=== PATIENT | female | born 1970 | race African-American/Black ===

== ENCOUNTER 2017-06-03 16:20 | Inpatient (IN) | payer SELFPAY ==
[~2017-06-03] VITALS: Ht 177.8 cm; Wt 119.4 kg
[2017-06-03 16:21] VITALS: BP 141/85; PULSE 123; RESP 20; TEMP 99.6; O2SAT 97
[2017-06-03 17:26] LABS: HEMATOCRIT 33.2 % (35.0-46.0); HEMOGLOBIN 10.2 GM/DL (11.6-15.3); MEAN CORPUSCULAR HGB CONC 30.7 % (32.0-36.0); MEAN PLATELET VOLUME 9.1 FL (7.0-11.0); PLATELET COUNT 272 TH/MM3 (150-450); RED BLOOD COUNT 5.11 MIL/MM3 (4.00-5.30); RED CELL DISTRIBUTION WIDTH 18.9 % (11.6-17.2); WHITE BLOOD COUNT 8.9 TH/MM3 (4.0-11.0)
[2017-06-03 17:27] LABS: AUTOMATED NEUTROPHIL # 5.5 TH/MM3 (1.8-7.7); BASOPHIL % 0.4 % (0.0-2.0); EOSINOPHIL % 0.5 % (0.0-4.0); LYMPHOCYTE # 2.5 TH/MM3 (1.0-4.8); MONO % 9.6 % (0.0-8.0); MONOCYTE # 0.9 TH/MM3 (0-0.9); NEUT % 61.5 % (16.0-70.0)
[2017-06-03 17:40] LABS: INTERNATIONAL NORMALIZED RATIO 1.1 RATIO; PROTHROMBIN TIME - PATIENT 11.1 SEC (9.8-11.6)
[2017-06-03 17:41] LABS: BACTERIA, URINE RARE /hpf; BILIRUBIN, URINE NEG (NEG); BLOOD, URINE NEG (NEG); GLUCOSE,URINE 1000 mg/dL (NEG); HYALINE CAST, URINE 6 /lpf (RARE); KETONE, URINE 10 mg/dL (NEG); MUCUS URINE MANY /lpf (OCC); NITRITE,URINE NEG (NEG); PH, URINE 5.5 (5.0-8.5); SQUAMOUS EPITHELIAL CELL URINE 35 /hpf (0-5); URINE COLOR YELLOW (YELLW/STRAW); URINE LEUKOCYTE ESTERASE SMALL (NEG)
[2017-06-03 17:47] LABS: ALBUMIN 3.9 GM/DL (3.4-5.0); AST (GOT) 16 U/L (15-37); BICARBONATE 24.9 MEQ/L (21.0-32.0); BLOOD UREA NITROGEN 6 MG/DL (7-18); CALCIUM 9.2 MG/DL (8.5-10.1); CHLORIDE 100 MEQ/L (98-107); CREATININE 0.91 MG/DL (0.50-1.00); GLOMERULAR FILTRATION RATE 67 ML/MIN (>89); GLUCOSE,RANDOM 241 MG/DL (74-106); SODIUM (NA) 134 MEQ/L (136-145)
[2017-06-03 17:51] LABS: ALKALINE PHOSPHATASE 103 U/L (45-117); ALT (GPT) 23 U/L (10-53); TOTAL BILIRUBIN ADULT 0.8 MG/DL (0.2-1.0); TOTAL PROTEIN 9.4 GM/DL (6.4-8.2)
--- NOTE | 2017-06-03 18:14 | PD ---
HPI Chief Complaint: Numbness/Tingling Time Seen by Provider: 18:13 Travel History International Travel<30 days: No Contact w/Intl Traveler<30days: No Traveled to known affect area: No PFSH Past Medical History Diabetes: Yes ?: Not LMP: end april Allergies-Medications (Allergen,Severity, Reaction): Coded Allergies: No Known Allergies (Unverified , 06/03/17) Reported Meds & Prescriptions Reported Meds & Active Scripts Active Reported Glyburide 5 Mg Tab 5 Mg PO BID Take with meals at the same time each day Levemir Inj (Insulin Detemir) 1,000 unit/ 10 ML Vial 1 Units SQ Do not mix with any other Insulin. Data Data Last Documented VS Vital Signs Date Time Temp Pulse Resp B/P (MAP) Pulse Ox O2 Delivery O2 Flow Rate FiO2 06/03/17 18:54 72 18 98 Room Air 06/03/17 16:21 99.6 141/85 (103) Orders Orders Complete Blood Count With Diff (06/03/17 16:25) Comprehensive Metabolic Panel (06/03/17 16:25) Prothrombin Time / Inr (Pt) (06/03/17 16:25) Act Partial Throm Time (Ptt) (06/03/17 16:25) Urinalysis - C+S If Indicated (06/03/17 16:25) Urine Culture (06/03/17 16:59) Labs Laboratory Tests Test 06/03/17 16:39 06/03/17 16:59 White Blood Count 8.9 TH/MM3 Red Blood Count 5.11 MIL/MM3 Hemoglobin 10.2 GM/DL Hematocrit 33.2 % Mean Corpuscular Volume 65.0 FL Mean Corpuscular Hemoglobin 20.0 PG Mean Corpuscular Hemoglobin Concent 30.7 % Red Cell Distribution Width 18.9 % Platelet Count 272 TH/MM3 Mean Platelet Volume 9.1 FL Neutrophils (%) (Auto) 61.5 % Lymphocytes (%) (Auto) 28.0 % Monocytes (%) (Auto) 9.6 % Eosinophils (%) (Auto) 0.5 % Basophils (%) (Auto) 0.4 % Neutrophils # (Auto) 5.5 TH/MM3 Lymphocytes # (Auto) 2.5 TH/MM3 Monocytes # (Auto) 0.9 TH/MM3 Eosinophils # (Auto) 0.0 TH/MM3 Basophils # (Auto) 0.0 TH/MM3 CBC Comment DIFF FINAL Differential Comment Prothrombin Time 11.1 SEC Prothromb Time International Ratio 1.1 RATIO Activated Partial Thromboplast Time 25.1 SEC Blood Urea Nitrogen 6 MG/DL Creatinine 0.91 MG/DL Random Glucose 241 MG/DL Total Protein 9.4 GM/DL Albumin 3.9 GM/DL Calcium Level 9.2 MG/DL Alkaline Phosphatase 103 U/L Aspartate Amino Transf (AST/SGOT) 16 U/L Alanine Aminotransferase (ALT/SGPT) 23 U/L Total Bilirubin 0.8 MG/DL Sodium Level 134 MEQ/L Potassium Level 3.5 MEQ/L Chloride Level 100 MEQ/L Carbon Dioxide Level 24.9 MEQ/L Anion Gap 9 MEQ/L Estimat Glomerular Filtration Rate 67 ML/MIN Urine Color YELLOW Urine Turbidity CLOUDY Urine pH 5.5 Urine Specific [place] 1.029 Urine Protein 100 mg/dL Urine Glucose (UA) 1000 mg/dL Urine Ketones 10 mg/dL Urine Occult Blood NEG Urine Nitrite NEG Urine Bilirubin NEG Urine Urobilinogen LESS THAN 2.0 MG/DL Urine Leukocyte Esterase SMALL Urine RBC 3 /hpf Urine WBC 11 /hpf Urine Squamous Epithelial Cells 35 /hpf Urine Bacteria RARE /hpf Urine Hyaline Casts 6 /lpf Urine Mucus MANY /lpf Microscopic Urinalysis Comment CULTURE INDICATED Carter Hummel Jun 03, 2017 18:14
[2017-06-03] MEDS ORDERED: LEVEMIR SQ (19:08)
[2017-06-03] MEDS ORDERED: GLYB5TAB3 PO (19:08)
[2017-06-03 20:44] VITALS: BP 174/75; PULSE 100; RESP 20; TEMP 98.9; O2SAT 97
--- NOTE | 2017-06-03 20:51 | RADRPT ---
EXAM DATE/TIME: 06/03/2017 20:20 [facility] COMPARISON: No previous studies available for comparison. INDICATIONS : Right sided weakness. RADIATION DOSE: 50.00 CTDIvol (mGy) MEDICAL HISTORY : Diabetes mellitus type 2. SURGICAL HISTORY : None. ENCOUNTER: Initial ACUITY: 1 day PAIN SCALE: 0/10 LOCATION: cranial TECHNIQUE: Multiple contiguous axial images were obtained of the head. Using automated exposure control and adj ustment of the mA and/or kV according to patient size, radiation dose was kept as low as reasonably a chievable to obtain optimal diagnostic quality images. DICOM format image data is available electro nically for review and comparison. FINDINGS: CEREBRUM: The ventricles are normal for age. No evidence of midline shift, mass lesion, hemorrhage or acute in farction. No extra-axial fluid collections are seen. POSTERIOR FOSSA: The cerebellum and brainstem are intact. The 4th ventricle is midline. The cerebellopontine angle i s unremarkable. EXTRACRANIAL: The visualized portion of the orbits is intact. SKULL: The calvaria is intact. No evidence of skull fracture. CONCLUSION: Negative noncontrast head CT. Camden Rivera MD on June 03, 2017 at 20:49 Board Certified Radiologist. This report was verified electronically.
--- NOTE | 2017-06-03 21:43 | PD ---
HPI Chief Complaint: Numbness/Tingling Time Seen by Provider: 19:18 Travel History International Travel<30 days: No Contact w/Intl Traveler<30days: No Traveled to known affect area: No History of Present Illness HPI Patient is a 47-year-old female who 2 weeks ago had a flulike illness now for 2- 3 days she's been having weakness and tingling in her mid abdomen and lower legs as well as weakness of her right lower leg is progressing she has taken nothing for it. She has not seen a neurologist for. Past medical history is diabetes insulin-dependent as well as she is has chronic vertigo but is not on medications for that. She describes it as a tingling feeling however when I examine her cutaneous touch is equal bilateral LEFT LEG LIFT NORMAL BUT RIGHT SEEMS WEAK 3/5 but against gravity able to slide leg sideways in the bed to sit up. No Trauma no sudden pain . weakness tingling are the main complaints and decreased sensation from bladder reported. No incontinence PFSH Past Medical History Anemia: Yes Diabetes: Yes Patient Takes Glucophage: No Medical other: Yes (vertigo) Tetanus Vaccination: < 5 Years Influenza Vaccination: Yes ?: Not LMP: end of April : 3 Para: 4 Past Surgical History Appendectomy: Yes Section: Yes (3) Social History Alcohol Use: No Tobacco Use: No Substance Use: No Allergies-Medications (Allergen,Severity, Reaction): Coded Allergies: No Known Allergies (Unverified , 06/03/17) Reported Meds & Prescriptions Reported Meds & Active Scripts Active Reported Glyburide 5 Mg Tab 5 Mg PO BID Take with meals at the same time each day Levemir Inj (Insulin Detemir) 1,000 unit/ 10 ML Vial 1 Units SQ Do not mix with any other Insulin. Review of Systems Except as stated in HPI: all other systems reviewed are Neg Neurologic: Positive: Weakness, Paresthesia, Other (decrease sensation of bladder and need to urinate NO incontinence ) Physical Exam Narrative GENERAL: In no apparent distress nontoxic-appearing awake alert SKIN: Warm and dry. HEAD: Atraumatic. Normocephalic. EYES: Pupils equal and round. No scleral icterus. No injection or drainage. ENT: No nasal bleeding or discharge. Mucous membranes pink and moist. NECK: Trachea midline. No JVD. CARDIOVASCULAR: Regular rate and rhythm. RESPIRATORY: No accessory muscle use. Clear to auscultation. Breath sounds equal bilaterally. GASTROINTESTINAL: Abdomen soft, non-tender, nondistended. Hepatic and splenic margins not palpable. MUSCULOSKELETAL: Extremities left lower extremity is weak with minimal lift against gravity . Sensation is intact to tactile stimulation Without clubbing, cyanosis, or edema. No obvious deformities. NEUROLOGICAL: awake alert , sensation intact pinching her skin bilateral legs equal sensation, left leg 5/5 but right lower extremity 2/5 can move sideways in bed to sit up but not against gravity . Data Data Last Documented VS Vital Signs Date Time Temp Pulse Resp B/P (MAP) Pulse Ox O2 Delivery O2 Flow Rate FiO2 06/03/17 20:44 98.9 100 20 174/75 (108) 97 Room Air Orders Orders Complete Blood Count With Diff (06/03/17 16:25) Comprehensive Metabolic Panel (06/03/17 16:25) Prothrombin Time / Inr (Pt) (06/03/17 16:25) Act Partial Throm Time (Ptt) (06/03/17 16:25) Urinalysis - C+S If Indicated (06/03/17 16:25) Urine Culture (06/03/17 16:59) Ct Brain W/O Iv Contrast(Rout) (06/03/17 ) Ed Urine Pregnancytest Poc (06/03/17 19:36) Admit Order (Ed Use Only) (06/03/17 21:40) Vital Signs (Adult) Q4H (06/03/17 21:39) Neuro Checks Q4H (06/03/17 21:39) Activity Oob With Assistance (06/03/17 21:39) [employer] Demonstrator / Telemetry .CONTINUOUS (06/03/17 21:39) Sodium Chloride 0.9% Flush (Ns Flush) (06/03/17 21:45) Sodium Chloride 0.9% Flush (Ns Flush) (06/04/17 09:00) Pt Request For Service (06/03/17 21:39) Case Management Consult (06/03/17 21:39) Naloxone Inj (Narcan Inj) (06/03/17 21:45) Labs Laboratory Tests Test 06/03/17 16:39 06/03/17 16:59 White Blood Count 8.9 TH/MM3 Red Blood Count 5.11 MIL/MM3 Hemoglobin 10.2 GM/DL Hematocrit 33.2 % Mean Corpuscular Volume 65.0 FL Mean Corpuscular Hemoglobin 20.0 PG Mean Corpuscular Hemoglobin Concent 30.7 % Red Cell Distribution Width 18.9 % Platelet Count 272 TH/MM3 Mean Platelet Volume 9.1 FL Neutrophils (%) (Auto) 61.5 % Lymphocytes (%) (Auto) 28.0 % Monocytes (%) (Auto) 9.6 % Eosinophils (%) (Auto) 0.5 % Basophils (%) (Auto) 0.4 % Neutrophils # (Auto) 5.5 TH/MM3 Lymphocytes # (Auto) 2.5 TH/MM3 Monocytes # (Auto) 0.9 TH/MM3 Eosinophils # (Auto) 0.0 TH/MM3 Basophils # (Auto) 0.0 TH/MM3 CBC Comment DIFF FINAL Differential Comment Prothrombin Time 11.1 SEC Prothromb Time International Ratio 1.1 RATIO Activated Partial Thromboplast Time 25.1 SEC Blood Urea Nitrogen 6 MG/DL Creatinine 0.91 MG/DL Random Glucose 241 MG/DL Total Protein 9.4 GM/DL Albumin 3.9 GM/DL Calcium Level 9.2 MG/DL Alkaline Phosphatase 103 U/L Aspartate Amino Transf (AST/SGOT) 16 U/L Alanine Aminotransferase (ALT/SGPT) 23 U/L Total Bilirubin 0.8 MG/DL Sodium Level 134 MEQ/L Potassium Level 3.5 MEQ/L Chloride Level 100 MEQ/L Carbon Dioxide Level 24.9 MEQ/L Anion Gap 9 MEQ/L Estimat Glomerular Filtration Rate 67 ML/MIN Human Chorionic Gonadotropin, Quant LESS THAN 1 MIU/ML Urine Color YELLOW Urine Turbidity CLOUDY Urine pH 5.5 Urine Specific [place] 1.029 Urine Protein 100 mg/dL Urine Glucose (UA) 1000 mg/dL Urine Ketones 10 mg/dL Urine Occult Blood NEG Urine Nitrite NEG Urine Bilirubin NEG Urine Urobilinogen LESS THAN 2.0 MG/DL Urine Leukocyte Esterase SMALL Urine RBC 3 /hpf Urine WBC 11 /hpf Urine Squamous Epithelial Cells 35 /hpf Urine Bacteria RARE /hpf Urine Hyaline Casts 6 /lpf Urine Mucus MANY /lpf Microscopic Urinalysis Comment CULTURE INDICATED MDM Medical Decision Making Medical Screen Exam Complete: Yes Emergency Medical Condition: Yes Differential Diagnosis Patient has sudden onset of progressive weakness over the last few days tingling from her breast down to her midline to her legs and weakness of the left leg as well as the inability to sense or bladder she is reporting no trauma to her spine she has no history of herniated disks she has no history of multiple sclerosis differential diagnosis includes multiple sclerosis new onset versus Guillain-Gonzalez's versus neuritis versus spinal cord lesion versus diabetes peripheral neuropathy and other Narrative Course patient has weakness to right leg on exam that leads to worry for spinal lesion or central cord or MS or Guillane Sasser ... I speak with Dr. Blancas the neurologist who wants to have an MRI of the thoracic the cervical and lumbar spine done with and without contrast . I admit the patient to Dr. Cárdenas hospitalist and neurology Yonny is following the case He arrives bedside . Diagnosis Primary Impression: Progressive focal motor weakness Admitting Information Admitting Physician Requests: Observation Mitchell Clarke MD Jun 03, 2017 21:43
[2017-06-03] MEDS ORDERED: SODIUM CHLORIDE 0.9% FLUSH 10 ML FLUSH IV FLUSH PRN (21:45)
[2017-06-03] MEDS ORDERED: NALOXONE HCL 0.4 MG/ML AMP IV PUSH PRN (21:45)
[2017-06-03 21:56] VITALS: BP 156/66; PULSE 98; RESP 20; TEMP 98.8; O2SAT 98
[2017-06-03] MEDS ORDERED: DEXTROSE 50% IN WATER 50 ML VIAL(D50) IV PUSH PRN (22:00)
[2017-06-03] MEDS ORDERED: GLUCAGON 1 MG/ML VIAL OTHER PRN (22:00)
--- NOTE | 2017-06-03 23:20 | RADRPT ---
EXAM DATE/TIME: 06/03/2017 22:37 [facility] COMPARISON: No previous studies available for comparison. INDICATIONS : Myelopathy. MEDICAL HISTORY : Diabetes. Anemia. SURGICAL HISTORY : section. Appendectomy. ENCOUNTER: Subsequent ACUITY: 1 day PAIN SCORE: 5/10 LOCATION: Mid-back. TECHNIQUE: Multiplanar multisequence MRI of the thoracic spine was performed. FINDINGS: VERTEBRA: Normal vertebral body height. Homogeneous marrow signal. ALIGNMENT: Normal. CORD: There is abnormal increased signal within the central body of the spinal cord from T1 down to approxi mately T9-T10. The appearance suggests a combination of a syrinx as well as myelopathy. T1-T2: Normal. T2-T3: The thecal sac has a normal diameter. No evidence of disc bulge or protrusion. T3-T4: The thecal sac has a normal diameter. No evidence of disc bulge or protrusion. T4-T5: The thecal sac has a normal diameter. No evidence of disc bulge or protrusion. T5-T6: The thecal sac has a normal diameter. No evidence of disc bulge or protrusion. T6-T7: The thecal sac has a normal diameter. No evidence of disc bulge or protrusion. T7-T8: The thecal sac has a normal diameter. No evidence of disc bulge or protrusion. T8-T9: The thecal sac has a normal diameter. No evidence of disc bulge or protrusion. T9-T10: The thecal sac has a normal diameter. No evidence of disc bulge or protrusion. T10-T11: The thecal sac has a normal diameter. No evidence of disc bulge or protrusion. T11-T12: The thecal sac has a normal diameter. No evidence of disc bulge or protrusion. T12-L1: The thecal sac has a normal diameter. No evidence of disc bulge or protrusion. CONCLUSION: 1. There is abnormal increased signal within the central body of the spinal cord from T1 down to appr oximately T9-T10. This abnormal increased signal appears to be a combination of a syrinx and myelopat hy involving the spinal cord. Juma Dunn MD on June 03, 2017 at 23:12 Board Certified Radiologist. This report was verified electronically.
--- NOTE | 2017-06-03 23:27 | RADRPT ---
EXAM DATE/TIME: 06/03/2017 22:37 [facility] COMPARISON: No previous studies available for comparison. INDICATIONS : Myelopathy. MEDICAL HISTORY : Diabetes. Anemia. SURGICAL HISTORY : section. Appendectomy. ENCOUNTER: Subsequent ACUITY: 1 day PAIN SCORE: 5/10 LOCATION: neck TECHNIQUE: Multiplanar, multisequence MRI examination of the cervical spine was performed. FINDINGS: VERTEBRAE: Normal vertebral body height. Homogeneous marrow signal. ALIGNMENT: No evidence of subluxation. CORD: There is abnormal diffuse increased signal throughout the central body of the cord starting at the le andrés of the C2-C3 extending down into the thoracic spinal cord. The Cord appears to be widened from C4 -C6. No definite syrinx is seen in the spinal cord of the cervical spine. POST FOSSA: The cerebellar tonsils are normal in position. C2-C3: The thecal sac has a normal configuration. There is no evidence of disc herniation or spinal canal s tenosis. The neural foramina are patent bilaterally. C3-C4: The thecal sac has a normal configuration. There is no evidence of disc herniation or spinal canal s tenosis. The neural foramina are patent bilaterally. C4-C5: Mild broad-based bulging. The neural foramina are patent bilaterally. C5-C6: Focal small central bulging/protrusion. The neural foramina are patent bilaterally. C6-C7: Broad-based bulging. The neural foramina are patent bilaterally. C7-T1: The thecal sac has a normal configuration. There is no evidence of disc herniation or spinal canal s tenosis. The neural foramina are patent bilaterally. CONCLUSION: 1. Grossly abnormal increased signal throughout the central body of the spinal cord from C2-C3 down i nto the thoracic spinal cord. There is some widening of the cord from C4-C6. 2. Mild broad-based bulging C4-C5 3. Focal small central bulge/protrusion C5-6 4. Broad-based bulging C6-C7. Juma Dunn MD on June 03, 2017 at 23:18 Board Certified Radiologist. This report was verified electronically.
--- NOTE | 2017-06-03 23:32 | RADRPT ---
EXAM DATE/TIME: 06/03/2017 22:37 [facility] COMPARISON: No previous studies available for comparison. INDICATIONS : Myelopathy. MEDICAL HISTORY : Diabetes. Anemia. SURGICAL HISTORY : section. Appendectomy. ENCOUNTER: Subsequent ACUITY: 1 day PAIN SCORE: 5/10 LOCATION: Lower back. TECHNIQUE: Multiplanar multisequence MRI of the lumbar spine was performed without contrast. FINDINGS: The most caudal appearing lumbar vertebra is numbered as L5. VERTEBRAE: Homogeneous signal. Normal alignment. There is some disc dehydration at L4-5 and L5-S1. There is a s acral cyst at S2 measuring approximately 2.2 x 1.8 cm. The cyst is located centrally and slightly to the left. [place]: Normal level and configuration. T12-L1: The thecal sac has a normal diameter. No evidence of disc bulge or protrusion. The neural foramina are patent bilaterally. L1-L2: The thecal sac has a normal diameter. No evidence of disc bulge or protrusion. The neural foramina are patent bilaterally. L2-L3: The thecal sac has a normal diameter. No evidence of disc bulge or protrusion. The neural foramina are patent bilaterally. L3-L4: The thecal sac has a normal diameter. No evidence of disc bulge or protrusion. The neural foramina are patent bilaterally. L4-L5: Mild diffuse broad-based bulging. The neuroforamina are patent bilaterally. There is bilateral facet arthritis. L5-S1: There is some broad-based bulging and focal central bulging/protrusion. There is narrowing of the rig ht neural foramina. The left neural foramina appears patent. Bilateral facet arthritis. There is a sa cral cyst at S2. CONCLUSION: 1. Mild broad-based bulging at L4-5. 2. Broad-based bulging and focal central bulging/protrusion L5-S1. 3. Sacral cyst at S2 measuring 2.2 x 1.8 cm. 4. Bilateral facet arthritis at L4-5 and L5-S1. Juma Dunn MD on June 03, 2017 at 23:25 Board Certified Radiologist. This report was verified electronically.
[2017-06-04] VITALS (12 sets, daily range): BP systolic 131–168; BP diastolic 64–94; PULSE 94–122; RESP 16–20; TEMP 96.7–99.7; O2SAT 93–99
[2017-06-04] MEDS ORDERED: DEXAMETHASONE SOD PHOS 20 MG/5 ML VIAL IV PUSH ONE (01:15)
--- NOTE | 2017-06-04 01:33 | HHI.HP ---
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 numbness through my body pain in my upper back and pain in my head pain in bilateral thighs muscle spasms cannot walk well and had to stop working starting wednesday can walk through the house to bathroom but had to hold on to [place] - off balance starting afternoon, could no longer walk even to bathroom all symptoms above started Wednesday night when she woke up, she noticed thighs were numbness and then went up to under the breast area pt presented to [facility] on Wednesday and was prescribed hydrocodone/ acetaminophen with muscle relaxants had fever, nausea, vomiting, diarrhea, viral infection- all this happened a week before [place] reports of freq urination but denies any other symptoms Review of Systems Except as stated in HPI: all other systems reviewed are Neg Past Family Social History Past Medical History dm Past Surgical History appendectomy 3 c sections cyst removal around buttocks Allergies: Coded Allergies: No Known Allergies (Unverified , 06/03/17) Family History mother- dm, htn, asthma father- dm, gout sisters- asthma, htn one sister- thyroid Social History no smoking / no etoh. no drugs works as [employer] Physical Exam Vital Signs Vital Signs Date Time Temp Pulse Resp B/P (MAP) Pulse Ox O2 Delivery O2 Flow Rate FiO2 06/04/17 00:17 99.7 118 20 168/79 (108) 93 06/03/17 23:43 06/03/17 21:56 98.8 98 20 156/66 (96) 98 Room Air 06/03/17 20:44 98.9 100 20 174/75 (108) 97 Room Air 06/03/17 18:54 72 18 98 Room Air 06/03/17 16:21 99.6 123 20 141/85 (103) 97 Room Air Physical Exam GENERAL: This is a well-nourished, well-developed patient, in no apparent distress. SKIN: No rashes, ecchymoses or lesions. Cool and dry. HEAD: Atraumatic. Normocephalic. No temporal or scalp tenderness. EYES: no scleral icterus. No injection or drainage. ENT: Nose without bleeding, purulent drainage or septal hematoma. Airway patent. NECK: Trachea midline. No JVD . Supple, nontender, no meningeal signs. CARDIOVASCULAR: Regular rate and rhythm without murmurs, gallops, or rubs. RESPIRATORY: Clear to auscultation. Breath sounds equal bilaterally. No wheezes , rales, or rhonchi. GASTROINTESTINAL: Abdomen soft, non-tender, nondistended. No guarding. MUSCULOSKELETAL: Extremities without clubbing, cyanosis, or edema. . No calf tenderness. NEUROLOGICAL: Awake and alert. Normal speech. Decreased light touch sensation in lower extremities up to thighs. Preserved pain stimuli. Right lower extremity about 1 out of 5. Left lower extremity 2-3 out of 5. Somewhat limited exam. Laboratory Laboratory Tests Test 06/03/17 16:39 06/03/17 16:59 White Blood Count 8.9 Red Blood Count 5.11 Hemoglobin 10.2 Hematocrit 33.2 Mean Corpuscular Volume 65.0 Mean Corpuscular Hemoglobin 20.0 Mean Corpuscular Hemoglobin Concent 30.7 Red Cell Distribution Width 18.9 Platelet Count 272 Mean Platelet Volume 9.1 Neutrophils (%) (Auto) 61.5 Lymphocytes (%) (Auto) 28.0 Monocytes (%) (Auto) 9.6 Eosinophils (%) (Auto) 0.5 Basophils (%) (Auto) 0.4 Neutrophils # (Auto) 5.5 Lymphocytes # (Auto) 2.5 Monocytes # (Auto) 0.9 Eosinophils # (Auto) 0.0 Basophils # (Auto) 0.0 CBC Comment DIFF FINAL Differential Comment Prothrombin Time 11.1 Prothromb Time International Ratio 1.1 Activated Partial Thromboplast Time 25.1 Blood Urea Nitrogen 6 Creatinine 0.91 Random Glucose 241 Total Protein 9.4 Albumin 3.9 Calcium Level 9.2 Alkaline Phosphatase 103 Aspartate Amino Transf (AST/SGOT) 16 Alanine Aminotransferase (ALT/SGPT) 23 Total Bilirubin 0.8 Sodium Level 134 Potassium Level 3.5 Chloride Level 100 Carbon Dioxide Level 24.9 Anion Gap 9 Estimat Glomerular Filtration Rate 67 Urine Color YELLOW Urine Turbidity CLOUDY Urine pH 5.5 Urine Specific [place] 1.029 Urine Protein 100 Urine Glucose (UA) 1000 Urine Ketones 10 Urine Occult Blood NEG Urine Nitrite NEG Urine Bilirubin NEG Urine Urobilinogen LESS THAN 2.0 Urine Leukocyte Esterase SMALL Urine RBC 3 Urine WBC 11 Urine Squamous Epithelial Cells 35 Urine Bacteria RARE Urine Hyaline Casts 6 Urine Mucus MANY Microscopic Urinalysis Comment CULTURE INDICATED Date/Time Source Procedure Growth Status 06/03/17 16:59 Urine Clean Catch Urine Culture Pending Received Result Diagram: 06/03/17 1639 06/03/17 1639 Imaging Last 48 hours Impressions Thoracic Spine MRI 06/03/17 0000 Signed Impressions: Service Date/Time: May 22:37 - CONCLUSION: 1. There is abnormal increased signal within the central body of the spinal cord from T1 down to approximately T9-T10. This abnormal increased signal appears to be a combination of a syrinx and myelopathy involving the spinal cord. Juma Dunn MD Lumbar Spine MRI 06/03/17 0000 Signed Impressions: Service Date/Time: May 22:37 - CONCLUSION: 1. Mild broad-based bulging at L4-5. 2. Broad-based bulging and focal central bulging/protrusion L5-S1. 3. Sacral cyst at S2 measuring 2.2 x 1.8 cm. 4. Bilateral facet arthritis at L4-5 and L5-S1. Juma Dunn MD Head CT 06/03/17 0000 Signed Impressions: Service Date/Time: May 20:20 - CONCLUSION: Negative noncontrast head CT. Camden Rivera MD Cervical Spine MRI 06/03/17 0000 Signed Impressions: Service Date/Time: May 22:37 - CONCLUSION: 1. Grossly abnormal increased signal throughout the central body of the spinal cord from C2-C3 down into the thoracic spinal cord. There is some widening of the cord from C4-C6. 2. Mild broad-based bulging C4-C5 3. Focal small central bulge/protrusion C5-6 4. Broad-based bulging C6-C7. Juma Dunn MD [place] VTE Risk Assessment Caprini VTE Risk Assessment: Mod/High Risk (score >= 2) Caprini Risk Assessment Model Point Value = 1 Point Value = 2 Point Value = 3 Point Value = 5 Age 41-60 Minor surgery BMI > 25 kg/m2 Swollen legs Varicose veins or History of unexplained or recurrent spontaneous Oral contraceptives or hormone replacement Sepsis (< 1 month) Serious lung disease, including pneumonia (< 1 month) Abnormal pulmonary function Acute myocardial infarction Congestive heart failure (< 1 month) History of inflammatory bowel disease Medical patient at bed rest Age 61-74 Arthroscopic surgery Major open surgery (> 45 min) Laparoscopic surgery (> 45 min) Malignancy Confined to bed (> 72 hours) Immobilizing plaster cast Central venous access Age >= 75 History of VTE Family history of VTE Factor V Leiden Prothrombin [id number] Lupus anticoagulant Anticardiolipin antibodies Elevated serum homocysteine Heparin-induced thrombocytopenia Other congenital or acquired thrombophilia Stroke (< 1 month) Elective arthroplasty Hip, pelvis, or leg fracture Acute spinal cord injury (< 1 month) Prophylaxis Regimen Total Risk Factor Score Risk Level Prophylaxis Regimen 0-1 Low Early ambulation 2 Moderate Order ONE of the following: *Sequential Compression Device (SCD) *Heparin 5000 units SQ BID 3-4 Higher Order ONE of the following medications: *Heparin 5000 units SQ TID *Enoxaparin/Lovenox 40 mg SQ daily (WT < 150 kg, CrCl > 30 mL/min) *Enoxaparin/Lovenox 30 mg SQ daily (WT < 150 kg, CrCl > 10-29 mL/min) *Enoxaparin/Lovenox 30 mg SQ BID (WT < 150 kg, CrCl > 30 mL/min) AND/OR *Sequential Compression Device (SCD) 5 or more Highest Order ONE of the following medications: *Heparin 5000 units SQ TID (Preferred with Epidurals) *Enoxaparin/Lovenox 40 mg SQ daily (WT < 150 kg, CrCl > 30 mL/min) *Enoxaparin/Lovenox 30 mg SQ daily (WT < 150 kg, CrCl > 10-29 mL/min) *Enoxaparin/Lovenox 30 mg SQ BID (WT < 150 kg, CrCl > 30 mL/min) AND *Sequential Compression Device (SCD) Assessment and Plan Assessment and Plan impression: Acute neuro deficits with ascending symptoms. 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 Abnormal MRI findings: Cervical spine MRI grossly abnormal increased signal throughout the central body of the spinal cord from C2-C3 down into the thoracic spinal cord. There is some widening of the cord from C4-C6. Thoracic spine MRI. Increased signal within the central body of the spinal cord from T1 down to T9-2-10. Signal appears to be combination of syrinx and myelopathy. History of diabetes Plan: Patient's case was discussed with neurologist roll contour grinder your physician. Neuro checks every 4 hours. Pain control. MRI studies discussed with neurologist. Initially started patient on Decadron 10 mg IV 1 dose. However after evaluation by neurologist at the bedside, advised to add Solu- Medrol 1 g IV 1 dose. We'll monitor fingersticks closely. Currently sliding scale coverage every 4 hours. Nothing by mouth. Lumbar puncture in a.m. Also discussed with neurosurgeon Dr Fierro over the phone. He reviewed the films including the cervical and thoracic spine MRIs. His impression is that this could be spinal cord tumor. He requested for MRI of C-spine and L-spine with contrast tonight. He believes that we may have to transfer patient to [facility] depending on the findings of the contrast studies. MRIs ordered stat for tonight. DVT prophylaxis with SCD. GI prophylaxis on pantoprazole. Discussed Condition With patient, ER MD, nursing staff, neurologist, neurosurgeon Physician Certification 2 Midnight Certification Type: Admission for Inpatient Services Order for Inpatient Services The services are ordered in accordance with Medicare regulations or non- Medicare payer requirements, as applicable. In the case of services not specified as inpatient-only, they are appropriately provided as inpatient services in accordance with the 2-midnight benchmark. Estimated LOS (days): 4 days is the estimated time the patient will need to remain in the hospital, assuming treatment plan goals are met and no additional complications. Post-Hospital Plan: Home Odell Cárdenas MD Jun 04, 2017 01:33
[2017-06-04] MEDS ORDERED: methylPREDNISolone SOD SUCC 125 MG/2 ML VIAL IV PUSH ONE (02:00)
[2017-06-04] MEDS ORDERED: GLUCAGON 1 MG/ML VIAL OTHER PRN (02:00)
[2017-06-04] MEDS ORDERED: DEXTROSE 50% IN WATER 50 ML VIAL(D50) IV PUSH PRN (02:00)
[2017-06-04] MEDS: INSULIN ASPART SUPPLEMENTAL SCALE SQ SCH ×6 (02:12→21:47)
[2017-06-04] MEDS: cefTRIAXone INJ 1,000 MG in SODIUM CHLORIDE 0.9% INJ 100 ML IV SCH (02:12)
[2017-06-04] MEDS: MORPHINE SULFATE 2 MG/ML INJ IV PUSH PRN ×2 (03:20→12:57)
[2017-06-04] MEDS: SODIUM CHLOR 0.9% IV SCH ×2 (03:24→04:57)
[2017-06-04] MEDS: METHYLPREDNISOLONE SO SUCC IV SCH ×2 (03:24→04:57)
[2017-06-04] MEDS ORDERED: GADODIAMIDE PF 287 MG/ML 5 ML VIAL (for RAD MRI) IVCONTRAST ONE (04:21)
--- NOTE | 2017-06-04 05:06 | RADRPT ---
EXAM DATE/TIME: 06/04/2017 03:38 [facility] COMPARISON: MRI CERVICAL SPINE W/O CONTRAST, June 03, 2017, 22:37. INDICATIONS : Numbness from the chest down. CONTRAST: 25 cc Omniscan (gadodiamide) IV MEDICAL HISTORY : Diabetes mellitus type 2. SURGICAL HISTORY : Appendectomy. section. ENCOUNTER: Subsequent ACUITY: 4-6 days PAIN SCORE: 0/10 LOCATION: neck TECHNIQUE: Multiplanar, multisequence MRI examination of the cervical spine was performed. FINDINGS: A followup MRI of the cervical spine with contrast has been performed. This is compared to patient's recent MRI of the cervical spine without contrast. As noted on the prior examination there is abnorma l increased signal throughout most of the cervical spinal cord from the level of C2-3 extending into the thoracic spine. There is widening of the spinal cord at about the level of C4-C6 suggestive of ed tatyana and swelling within the spinal cord. There is no definite post contrast-enhancement within the cristy dy of the cervical spinal cord. There is good alignment of the cervical spine and normal signal withi n the vertebral bodies. There is no abnormal enhancement within the vertebral bodies.. CONCLUSION: 1. No abnormal enhancement is seen within the body of the cervical spinal cord on these postcontrast images. 2. There is abnormal signal within the body of the cervical spinal cord with widening of the spinal c ord at the level of C4-C6 suggestive of edema and swelling. Juma Dunn MD on June 04, 2017 at 4:57 Board Certified Radiologist. This report was verified electronically.
--- NOTE | 2017-06-04 05:12 | RADRPT ---
EXAM DATE/TIME: 06/04/2017 03:38 [place] Corrected on: June 04, 2017; [facility] COMPARISON: MRI CERVICAL SPINE W CONTRAST, June 04, 2017, 3:38. MRI THORACIC SPINE W/O CONTRAST, June 03, 2017, 22:37. INDICATIONS : Numbness from the chest down. CONTRAST: 25 cc Omniscan (gadodiamide) IV MEDICAL HISTORY : Diabetes mellitus type 2. SURGICAL HISTORY : Appendectomy. section. ENCOUNTER: Subsequent ACUITY: 4-6 days PAIN SCORE: 0/10 LOCATION: back TECHNIQUE: Multiplanar multisequence MRI of the thoracic spine was performed. FINDINGS: Patient returned for postcontrast images of the thoracic spinal cord. As noted on the prior exam ther e is abnormal increased signal within the central body of the spinal cord from T1 down to approximate ly T10. On the postcontrast images, there appears to be diffuse nonspecific enhancement within the co rd from proximally T1 down to T7-T8. There may be a tiny syrinx within the central portion of the cor d at T5-T6 seen on the axial images.. CONCLUSION: The postcontrast images demonstrate diffuse abnormal enhancement within the body the cord from approx imately T1 down to approximately T8. This suggest some type of inflammatory process involving the tho racic spinal cord. This may be acute transverse myelitis. Juma Dunn MD on June 04, 2017 at 5:03 Board Certified Radiologist. This report was verified electronically. Juma Dunn MD on June 04, 2017 at 6:06 Board Certified Radiologist. This report was verified electronically.
--- NOTE | 2017-06-04 05:15 | RADRPT ---
EXAM DATE/TIME: 06/04/2017 03:38 [facility] COMPARISON: No previous studies available for comparison. INDICATIONS : Numbness from chest down. CONTRAST: 25 cc Omniscan (gadodiamide) IV MEDICAL HISTORY : Diabetes mellitus type 2. SURGICAL HISTORY : Appendectomy. section. ENCOUNTER: Subsequent ACUITY: 4-6 days PAIN SCORE: 0/10 LOCATION: cranial TECHNIQUE: Multiplanar, multisequence MRI of the brain was performed both prior to and following the administrat ion of paramagnetic contrast. FINDINGS: CEREBRUM: The ventricles are normal for age. No evidence of midline shift, mass lesion, hemorrhage or acute in farction. No extraaxial fluid collections are seen. The pituitary gland and suprasellar cistern are normal in configuration. WHITE MATTER: No significant signal abnormalities are seen in the white matter. POSTERIOR FOSSA: The cerebellum and brainstem are intact. The 4th ventricle is midline. The cerebellopontine angle is unremarkable. The cerebellar tonsils are normal in position. DIFFUSION IMAGING: No focal areas of restricted diffusion are seen. No evidence of acute infarction. EXTRACRANIAL: The visualized portions of the orbits are unremarkable. Small mucus retention cyst in the right maxil veronique sinus. POST-CONTRAST: No abnormal areas of parenchymal or dural enhancement. No evidence of blood-brain barrier breakdown. No enhancing mass occupying lesions. CONCLUSION: Unremarkable MRI of the brain. Juma Dunn MD on June 04, 2017 at 5:10 Board Certified Radiologist. This report was verified electronically.
--- NOTE | 2017-06-04 07:07 | HHI.PR ---
Subjective Remarks no new co Objective Vital Signs Date Time Temp Pulse Resp B/P (MAP) Pulse Ox O2 Delivery O2 Flow Rate FiO2 06/04/17 05:09 98.8 105 19 147/73 (97) 97 06/04/17 00:30 98 Nasal Cannula 2.00 06/04/17 00:17 99.7 118 20 168/79 (108) 93 06/03/17 23:43 06/03/17 21:56 98.8 98 20 156/66 (96) 98 Room Air 06/03/17 20:44 98.9 100 20 174/75 (108) 97 Room Air 06/03/17 18:54 72 18 98 Room Air 06/03/17 16:21 99.6 123 20 141/85 (103) 97 Room Air I/O 06/03/17 06/03/17 06/03/17 06/04/17 06/04/17 06/04/17 07:00 15:00 23:00 07:00 15:00 23:00 Output Total 300 ml Balance -300 ml Output Urine Total 300 ml # Voids 1 4 Result Diagram: 06/03/17 1639 06/03/17 1639 Objective Remarks can lift lle off bed well generally 4/5 there the rle weaker ta 4+ ip 3 bue nl Assessment and Plan Assessment and Plan imp myelopathy await nusu input myelitis avelina the cervical area does not enhance but the thoracic does diffusely enhance LP a lot of labs not done yet brain mri neg steroids oob PT stable overnoc Abraham Blancas MD Jun 04, 2017 07:07
[2017-06-04 07:45] LABS: ALT (GPT) 22 U/L (10-53); AST (GOT) 10 U/L (15-37); CHOLESTEROL 163 MG/DL (120-200); TRIGLYCERIDES 50 MG/DL (42-150)
[2017-06-04] MEDS ORDERED: INSULIN ASPART SUPPLEMENTAL SCALE SQ SCH (08:00)
[2017-06-04 08:06] LABS: RHEUMATOID FACTOR SCREEN NEGATIVE (NEGATIVE)
[2017-06-04 08:11] LABS: CHOLESTEROL/ HDL RATIO 3.01 RATIO; FREE T4 1.39 NG/DL (0.76-1.46); HDL CHOLESTEROL 54.1 MG/DL (40.0-60.0); LDL CHOLESTEROL 99 MG/DL (0-99)
[2017-06-04 08:14] LABS: FOLATE GREATER THAN 20.0 NG/ML (3.1-17.5)
[2017-06-04] MEDS: PANTOPRAZOLE SODIUM 40 MG VIAL IV PUSH SCH ×2 (08:17→20:42)
[2017-06-04] MEDS: SODIUM CHLORIDE 0.9% FLUSH 10 ML FLUSH IV FLUSH SCH ×2 (08:17→20:43)
--- NOTE | 2017-06-04 08:53 | MB ---
cc: HALEY DING M.D. DATE OF CONSULTATION 06/04/2017 REASON FOR CONSULTATION This is a 47-year-old right-handed woman with a history of insulin diabetes, remote vertigo, some anemia, otherwise who has been very healthy. Before , she had some nausea, vomiting and diarrhea, but had been feeling fine until last Wednesday when she woke up in the middle of the night, felt some tingling from the waist down and then the next day she felt tingling down into her feet and then later that day up into her breast region and seemed to be fairly stable on Wednesday and came in on with some cramping in her legs. She was still able to walk this morning. No rash. She never had Lyme disease. She never traveled to the located within [facility]. REVIEW OF SYSTEMS Denies any hypertension, hypercholesterolemia, [place], stent angioplasty, A. fib, Coumadin, renal, hepatic or pulmonary disease, thyroid disease, lupus, ulcer cancer, seizure, or stroke. SOCIAL HISTORY Not a smoker or a drinker. No drugs. Lives by herself. FAMILY HISTORY Family history, just moved up from [facility]. Family history is negative for cancer, seizure, or stroke. MEDICATIONS She takes: 1. Glyburide 2. Insulin ALLERGIES NO KNOWN DRUG ALLERGIES. PHYSICAL EXAM On exam, 99 to afebrile, 118, 20, 168/79. NECK: There were no carotid bruits. HEART: Regular rhythm. I did not detect a murmur. GENERAL: She is obese. NEUROLOGIC: The pupils are equal, visual rivera are full. Extraocular movements intact without nystagmus. Face symmetric with normal sensation. Tongue was midline. There no drift. She had normal strength in the bilateral deltoid, triceps, biceps finger extensors, FDI, APB. Lower extremity strength iliopsoas on the right 3-/5, on the left 3/5, hamstring on the right 4/5, on the left 4/5. Quadriceps on the right 4-/5 on the left, 5-/5. Tibialis anterior on the left 5/5, on the right about 4/5. DTRs are absent throughout. Toes are upgoing bilaterally. There is no ankle clonus. She had some increased tone spontaneously in the right lower greater than the left lower extremity. Pinprick shows that she has a pin level right around T3-T4 on her back bilaterally. A little bit more actually on the left than the right. Proprioception could not tell with her toes. She is not ataxic on [id number]. Speech is fluent. She is not aphasic. LABORATORY DATA CBC is essentially normal. UA showed 1000 glucose, 11 white cells, small amount of leukoesterase. Basic metabolic profile was normal, glucose 241. LFTs were normal. She had a CT scan of her brain that was normal. She had an MRI of her cervical spine which showed abnormal broad area in the spinal cord from about C2-3 down, some widening of the cord done without contrast. MRI of the lumbar spine showed some DJD and a sacral cyst. MRI of the thoracic spine showed what appeared to be some movement artifact with some abnormal signal in the cord all the way down. 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 Whether this post infectious diffuse myelitis is unclear. She will need an LP. We will give her a gram of Solu-Medrol now. We are calling neurosurgery [facility] to have them look at the films to weigh in. I will be following her with you in the hospital. We will also do an MR of the brain to just make sure there is nothing going on in the rest of the central nervous system. MD SANJAY Torres/BAHMAN /1:52 AM /8:26 AM
--- NOTE | 2017-06-04 10:12 | RADRPT ---
EXAM DATE/TIME: 06/04/2017 10:33 [facility] COMPARISON: No previous studies available for comparison. INDICATIONS : Patient presents with peripheral weakness in need of lumbar puncture to rule out myelitis. MEDICAL HISTORY : DM SURGICAL HISTORY : Appy 3 C-sections Cyst removed from buttocks ENCOUNTER: Initial ACUITY: 3 days PAIN SCORE: 8/10 LOCATION: Head and neck pain. LUMBAR PUNCTURE TIME: 09:32 hours FLUORO TIME: 0.9 minutes IMAGE SERIES: 0 ACCESS LEVEL: L3-4 OPENING PRESSURE: 20 cm of water CLOSING PRESSURE: Not requested. FLUID: 12 cc of clear CSF was collected and sent to the laboratory for analysis. PROCEDURE : 1. Fluoroscopic guided lumbar puncture. 2. Recording of opening pressure. The risks, benefits and alternatives to the procedure were explained and verbal and written consent w as obtained. The site was prepped in sterile fashion. Full sterile technique was used, including ca p, mask, sterile gloves and gown and a large sterile sheet. Hand hygiene and 2% chlorhexidine and/or betadine/alcohol prep was utilized per protocol for cutaneous antisepsis. The skin and subcutaneous tissues were infiltrated with local anesthetic solution. With fluoroscopic guidance the lumbar thecal sac was punctured at the above level described above and the opening pressure was recorded. The above described fluid was removed without difficulty. The patient tolerated the procedure well and there were no complications. CONCLUSION: Uncomplicated fluoroscopically guided lumbar puncture with pressures as above. Camden Camp MD on June 04, 2017 at 10:09 Board Certified Radiologist. This report was verified electronically.
--- NOTE | 2017-06-04 10:42 | PD.RAD ---
Post Procedure Progress Note Pre Procedure Diagnosis: (1) Progressive focal motor weakness Post Procedure Diagnosis: (1) Progressive focal motor weakness Procedure Date: Jun 04, 2017 Supervising Radiologist: Camden Camp Proceduralist/Assist: RT Clement(R), RT Sera(R) Anesthesia: Local Plan of Activity Patient to Unit: ROPU Patient Condition: Good See PACS Report for procedural detail/treatment Spinal Procedure Lumbar Puncture L3-L4 Fluid Removal (CCs): 12 Fluid Description: Clear Puncture Time: 09:32 Findings: opening pressure 20 cm Camden Camp MD Jun 04, 2017 10:42
--- NOTE | 2017-06-04 10:52 | HHI.PR ---
Subjective Remarks Follow up for myelopathy, lower extremity numbness/weakness. The patient is seen post lumbar puncture. She reports continued lower extremity numbness and weakness, unchanged compared to yesterday. She reports pain at her lower neck, and muscles spasms in bilateral thighs. She also reports urinary incontinence over the past 2 days. She states she feels the urge to urinate but then has no control. She has no other medical complaints at this time. Objective Vitals Vital Signs Date Time Temp Pulse Resp B/P (MAP) Pulse Ox O2 Delivery O2 Flow Rate FiO2 06/04/17 08:16 Nasal Cannula 2.00 06/04/17 08:00 98.2 97 18 131/68 (89) 97 06/04/17 05:32 101 06/04/17 05:09 98.8 105 19 147/73 (97) 97 06/04/17 00:31 115 06/04/17 00:30 98 Nasal Cannula 2.00 06/04/17 00:17 99.7 118 20 168/79 (108) 93 06/03/17 23:43 06/03/17 21:56 98.8 98 20 156/66 (96) 98 Room Air 06/03/17 20:44 98.9 100 20 174/75 (108) 97 Room Air 06/03/17 18:54 72 18 98 Room Air 06/03/17 16:21 99.6 123 20 141/85 (103) 97 Room Air I/O 06/03/17 06/03/17 06/03/17 06/04/17 06/04/17 06/04/17 07:00 15:00 23:00 07:00 15:00 23:00 Output Total 300 ml Balance -300 ml Output Urine Total 300 ml # Voids 1 4 Result Diagram: 06/03/17 1639 06/03/17 1639 Imaging Last Impressions Brain MRI 06/04/17 0227 Signed Impressions: Service Date/Time: Sunday, June 04, 2017 03:38 - CONCLUSION: Unremarkable MRI of the brain. Juma Dunn MD Thoracic Spine MRI 06/04/17 0000 Signed Impressions: Service Date/Time: Sunday, June 04, 2017 03:38 - CONCLUSION: The postcontrast images demonstrate diffuse abnormal enhancement within the body the cord from approximately T1 down to approximately T8. This suggest some type of inflammatory process involving the thoracic spinal cord. This may be acute transverse myelitis. Juma Dunn MD Lumbar Puncture Fluoroscopy 06/04/17 0000 Signed Impressions: Service Date/Time: Sunday, June 04, 2017 10:33 - CONCLUSION: Uncomplicated fluoroscopically guided lumbar puncture with pressures as above. Camden Camp MD Cervical Spine MRI 06/04/17 0000 Signed Impressions: Service Date/Time: Sunday, June 04, 2017 03:38 - CONCLUSION: 1. No abnormal enhancement is seen within the body of the cervical spinal cord on these postcontrast images. 2. There is abnormal signal within the body of the cervical spinal cord with widening of the spinal cord at the level of C4-C6 suggestive of edema and swelling. Juma Dunn MD Lumbar Spine MRI 06/03/17 0000 Signed Impressions: Service Date/Time: May 22:37 - CONCLUSION: 1. Mild broad-based bulging at L4-5. 2. Broad-based bulging and focal central bulging/protrusion L5-S1. 3. Sacral cyst at S2 measuring 2.2 x 1.8 cm. 4. Bilateral facet arthritis at L4-5 and L5-S1. Juma Dunn MD Head CT 06/03/17 0000 Signed Impressions: Service Date/Time: May 20:20 - CONCLUSION: Negative noncontrast head CT. Camden Rivera MD Objective Remarks GENERAL: Well-nourished, well-developed obese middle aged female patient in [facility]. SKIN: Warm and dry. No rash. HEENT: Normocephalic. Atraumatic.Pupils equal and round. Mucous membranes pink and moist. NECK: Supple. Trachea midline. CARDIOVASCULAR: Regular rate and rhythm. S1, S2 noted. No murmur appreciated. RESPIRATORY: No accessory muscle use. Clear to auscultation. Breath sounds equal bilaterally. GASTROINTESTINAL: Abdomen soft, non-tender, nondistended. Normoactive bowel sounds x4. MUSCULOSKELETAL: No obvious deformities. Extremities without clubbing, cyanosis , or edema. NEUROLOGICAL: Awake and alert. No obvious cranial nerve deficits. 3/5 strength of bilateral lower extremities. 5/5 strength strength of bilateral upper extremities. Normal speech. PSYCHIATRIC: Appropriate mood and affect; insight and judgment normal. Medications and IVs Current Medications Medications (Trade) Dose Ordered Sig/Tara Route Start Time Stop Time Status Last Admin (NS Flush) 2 ml UNSCH PRN IV FLUSH 06/03/17 21:45 (NS Flush) 2 ml BID IV FLUSH 06/04/17 09:00 06/04/17 08:17 (Narcan Inj) 0.4 mg UNSCH PRN IV PUSH 06/03/17 21:45 (Morphine Inj) 2 mg Q3H PRN IV PUSH 06/04/17 00:30 06/04/17 03:20 Ceftriaxone Sodium 1000 mg/ Sodium Chloride 100 ml @ 200 mls/hr Q24H IV 06/04/17 02:00 06/04/17 02:12 (D50w (Vial) Inj) 50 ml UNSCH PRN IV PUSH 06/04/17 02:00 (Glucagon Inj) 1 mg UNSCH PRN OTHER 06/04/17 02:00 (NovoLOG SUPPLEMENTAL SCALE) 1 Q4H SQ 06/04/17 02:00 06/04/17 06:23 (Flexeril) 5 mg Q8H PRN PO 06/04/17 02:15 (Protonix Inj) 40 mg Q12H IV PUSH 06/04/17 09:00 06/04/17 08:17 Methylprednisolone Sodium Succinate 1000 mg/Dextrose 266 ml @ 266 mls/hr Q24H IV 06/05/17 05:00 06/06/17 05:59 A/P Assessment and Plan 47-year-old female with history of diabetes presents with numbness, back/thigh pain, diffuse spasms, weakness, inability to ambulate. Myelopathy: Acute neuro deficits with ascending symptoms. Possible post infectious myelitis. -C-spine MRI grossly abnormal increased signal throughout the central body of the spinal cord from C2-C3 down into the thoracic spinal cord. Some widening of the cord from C4-C6. -T-spine MRI shows increased signal within the central body of the spinal cord from T1 down to T9-2-10. Signal appears to be combination of syrinx and myelopathy. -Repeat C-spine MRI with contrast showed abnormal increased signal throughout most of the cervical spinal cord from the level of C2-3 extending into the thoracic spine; widening of the spinal cord at about the level of C4- C6 suggestive of edema and swelling within the spinal cord. -Repeat T-spine MRI with contrast showed diffuse abnormal enhancement within the body of the cord from T1-T8; suggest some type of inflammatory process involving thoracic spinal cord; may be acute transverse myelitis -Brain MRI unremarkable -Monitor neuro checks -Pain control with morphine prn and flexeril prn -S/p Lumbar puncture today 06/04, all labs pending -Consult neurology and neurosurgery, appreciate recommendations -Started on IV Solumedrol 1G q24h x3days History of diabetes -Monitor Accu-checks and cover with SSI DVT prophylaxis: teds/SCDs. Avoid chemoprophylaxis with LP. GI prophylaxis: pantoprazole. Attending Statement patient was seen and examined today. presented with lower extremity weakness and numbness- possible myelitis. s/p LP. on IV steroids. neurology and neurosurgery following. rest of assessment and plan as noted above. Sarah Mckenzie PA-C Jun 04, 2017 10:52 Ailyn Caceres MD Jun 04, 2017 13:21
[2017-06-04 10:53] LABS: TOTAL PROTEIN,CSF 101.2 MG/DL (15.0-45.0)
--- NOTE | 2017-06-04 11:03 | MB ---
cc: SHAKA MONTE M.D. DATE OF CONSULTATION 06/04/[address] Blancas HISTORY I was asked to see this 47-year-old woman who presented with a history of fairly rapid onset of sensory and motor dysfunction in the trunk and lower extremities over the past several days. According to the patient, she was in her usual state of health until Wednesday morning when she woke up feeling some numbness and tingling in her lower extremities. Those symptoms have worsened over the past several days and over the past two days she has developed weakness in the lower extremities as well, right greater than left. She presented to the emergency room for evaluation and MRIs with and without contrast of the cervical, thoracic, and lumbar spine had been performed. I have reviewed the studies. The studies show edematous change and enlargement of the cervical spinal cord without evidence of enhancement. Similar findings noted in the thoracic cord down to the T9 level. The enhancement in the thoracic chordee do show some spotting enhancement centrally within the cord. There is some motion artifact and some suggestion of a small amount of syrinx formation, but this is not absolutely clear. Lumbar MRI showed degenerative disk disease and benign sacral arachnoid cyst. MRI of the brain showed no abnormalities. PAST MEDICAL HISTORY The patient's past medical history significant for insulin-dependent diabetes. MEDICATIONS Her medications are: 1. Glyburide. 2. Insulin. ALLERGIES None known. HABITS The patient is not a smoker. She does not drink and denies illicit drug use. REVIEW OF SYSTEMS Pertinent as stated in HPI, otherwise 10-point review of systems negative. EXAMINATION A well-developed, well-nourished female. She is awake and alert in no acute distress. HEENT: Head is atraumatic and normocephalic. Pupils are equal, reactive to light. Extraocular movements are intact. NECK: Neck is supple. Full range of motion without meningismus. NEUROLOGIC EXAMINATION: The patient is alert and oriented x3 with normal mental status. Speech is intact to content and comprehension. Cranial nerves II-XII are intact. Motor function in the upper extremities is 5/5 without drift. Lower extremity examination shows 3/5 iliopsoas strength on the right, 3+/5 on the left. Quadriceps are 4/5 on the right, 5-/5 on the left. Tibialis anterior is 3/5 on the right, 5/5 on the left. Plantar responses are 5/5 bilaterally. Sensory examination shows a hard sensory level at approximately T4 which extends down to the knees at which point the patient does have some sensation distally of pressure on the right and pain and pressure on the left. Reflexes are hypoactive throughout. Plantar responses are upgoing bilaterally. ASSESSMENT MRI findings of enlargement of the cervical spinal cord and possibly enhancing lesion in the thoracic cord. The time frame of the patient's symptomatology is more consistent with acute myelitis, however, the enlargement of the cervical cord is worrisome for tumor. 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 Dr. Blancas has ordered an LP on the patient, the results are pending. She has also been started on Solu-Medrol. For now, no other recommendations at this time. We will await the results of the lumbar puncture before recommending further interventions. MD SANDI Hartmann/BAHMAN /10:26 AM /10:42 AM
[2017-06-04 11:33] LABS: RBC TUBE #1 40 /MM3; SUPERNATE COLOR TUBE #1 CLEAR (CLEAR); VOLUME TUBE # 1 1.3 ML; WBC TUBE #1 138 /MM3 (0-10)
[2017-06-04 11:34] LABS: CSF LYMPHOCYTES 56 %; CSF MONOCYTES 13 %; CSF NEUTROPHILS 31 %
[2017-06-04] MEDS: CYCLOBENZAPRINE HCL 10 MG TAB PO PRN ×2 (15:01→23:43)
[2017-06-04 15:43] LABS: ANA SCREEN NEG (NEG)
[2017-06-05] VITALS (7 sets, daily range): BP systolic 139–156; BP diastolic 70–91; PULSE 83–94; RESP 16–18; TEMP 96.9–97.6; O2SAT 95–99
[2017-06-05] MEDS: INSULIN ASPART SUPPLEMENTAL SCALE SQ SCH ×6 (01:52→20:36)
[2017-06-05] MEDS: cefTRIAXone INJ 1,000 MG in SODIUM CHLORIDE 0.9% INJ 100 ML IV SCH (01:52)
[2017-06-05] MEDS ORDERED: methylPREDNISolone SO SUCC INJ 1,000 MG in DEXTROSE 5% IN WATER INJ 250 ML IV SCH ×2 (05:00)
[2017-06-05] MEDS: MORPHINE SULFATE 2 MG/ML INJ IV PUSH PRN ×2 (07:11→13:30)
[2017-06-05] MEDS: SODIUM CHLORIDE 0.9% FLUSH 10 ML FLUSH IV FLUSH SCH ×2 (08:19→20:36)
[2017-06-05] MEDS: PANTOPRAZOLE SODIUM 40 MG VIAL IV PUSH SCH ×2 (08:20→20:36)
[2017-06-05] MEDS: CYCLOBENZAPRINE HCL 10 MG TAB PO PRN ×2 (08:20→18:24)
--- NOTE | 2017-06-05 11:01 | HHI.NSPN ---
History Interval History Mrs. Friedman is resting comfortably but is having increased spasm in the right lower extremity. Continues to complain of numbness throughout the trunk and lower extremities. Lumbar puncture results show increased protein in slight increase in glucose. Further study still pending. Exam Results Vital Signs Date Time Temp Pulse Resp B/P (MAP) Pulse Ox O2 Delivery O2 Flow Rate FiO2 06/05/17 08:54 99 Nasal Cannula 2.00 06/05/17 08:00 97.4 83 17 146/91 (109) Intake and Output 06/05/17 06/05/17 06/06/17 08:00 16:00 00:00 Intake Total 340 ml Balance 340 ml Physical Examination Neurological examination shows intact motor and sensory function in the upper extremities. T4 sensory level remains. Patient is now having significant spasm in the right lower extremity and has lost dorsi and plantarflexion of the right foot. Left lower extremity examination is stable. Lab, Micro, Other Results Last 48 hours Impressions Brain MRI 06/04/17 0227 Signed Impressions: Service Date/Time: Sunday, June 04, 2017 03:38 - CONCLUSION: Unremarkable MRI of the brain. Juma Dunn MD Thoracic Spine MRI 06/04/17 0000 Signed Impressions: Service Date/Time: Sunday, June 04, 2017 03:38 - CONCLUSION: The postcontrast images demonstrate diffuse abnormal enhancement within the body the cord from approximately T1 down to approximately T8. This suggest some type of inflammatory process involving the thoracic spinal cord. This may be acute transverse myelitis. Juma Dunn MD Lumbar Puncture Fluoroscopy 06/04/17 0000 Signed Impressions: Service Date/Time: Sunday, June 04, 2017 10:33 - CONCLUSION: Uncomplicated fluoroscopically guided lumbar puncture with pressures as above. Camden Camp MD Cervical Spine MRI 06/04/17 0000 Signed Impressions: Service Date/Time: Sunday, June 04, 2017 03:38 - CONCLUSION: 1. No abnormal enhancement is seen within the body of the cervical spinal cord on these postcontrast images. 2. There is abnormal signal within the body of the cervical spinal cord with widening of the spinal cord at the level of C4-C6 suggestive of edema and swelling. Juma Dunn MD Date/Time Source Procedure Growth Status 06/04/17 09:36 Cerebral Spinal Fluid Lumbar Puncture Fungal Smear - Final NO FUNGAL ELEMENTS SEEN. Resulted 06/04/17 09:36 Cerebral Spinal Fluid Lumbar Puncture Fungal Culture Pending Resulted 06/03/17 16:59 Urine Clean Catch Urine Culture - Final 50-100,000 CFU/ML MIXED GRAM POSITIVE... Complete Medical Decision Making Impression and Plan Impression: Continuing worsening of the patient's myelopathy. I suspect that we are dealing with a spinal cord tumor rather than transverse myelitis as the enlargement of the cervical cord does not correlate with her examination. Plan: We will begin steps at having patient transferred to [facility] for probable spinal cord biopsy and further surgical recommendations. Chad Fierro MD Jun 05, 2017 11:00
--- NOTE | 2017-06-05 11:11 | HHI.PR ---
Review/Management Diagnosis Myelopathy Likely cervical, possibly due to a tumor Less likely a myelitis Plan Neuro checks Q4h Pending LP results May consider biopsy of the spinal lesion NSG recommend transfer to [facility], for further intervention Diagnosis/Plan: Subjective Subjective Comments Patient complains of numbness in both legs and muscle spasms denies increasing weakness LP revealed mild elevation of protein and glucose, other results are pending Active Medications Current Medications Medications (Trade) Dose Ordered Sig/Tara Route Start Time Stop Time Status Last Admin (NS Flush) 2 ml UNSCH PRN IV FLUSH 06/03/17 21:45 06/04/17 12:57 (NS Flush) 2 ml BID IV FLUSH 06/04/17 09:00 06/05/17 08:19 (Narcan Inj) 0.4 mg UNSCH PRN IV PUSH 06/03/17 21:45 (Morphine Inj) 2 mg Q3H PRN IV PUSH 06/04/17 00:30 06/05/17 07:11 Ceftriaxone Sodium 1000 mg/ Sodium Chloride 100 ml @ 200 mls/hr Q24H IV 06/04/17 02:00 06/05/17 01:52 (D50w (Vial) Inj) 50 ml UNSCH PRN IV PUSH 06/04/17 02:00 (Glucagon Inj) 1 mg UNSCH PRN OTHER 06/04/17 02:00 (NovoLOG SUPPLEMENTAL SCALE) 1 Q4H SQ 06/04/17 02:00 06/05/17 09:45 (Flexeril) 5 mg Q8H PRN PO 06/04/17 02:15 06/05/17 08:20 (Protonix Inj) 40 mg Q12H IV PUSH 06/04/17 09:00 06/05/17 08:20 Methylprednisolone Sodium Succinate 1000 mg/Dextrose 266 ml @ 266 mls/hr Q24H IV 06/05/17 05:00 06/06/17 05:59 06/05/17 05:32 (Lioresal) 10 mg Q8HR PO 06/05/17 14:00 UNV Allergies Allergies Coded Allergies No Known Allergies (Unverified06/03/17) Review of Systems All other ROS: ROS reviewed as documented in chart Exam I&O / VS Vital Signs Date Time Temp Pulse Resp B/P (MAP) Pulse Ox O2 Delivery O2 Flow Rate FiO2 06/05/17 08:54 99 Nasal Cannula 2.00 06/05/17 08:24 Nasal Cannula 2.00 06/05/17 08:00 97.4 83 17 146/91 (109) 98 06/05/17 04:00 97.1 86 17 156/85 (108) 95 06/05/17 04:00 87 06/05/17 00:24 89 06/05/17 00:00 96.9 92 16 152/86 (108) 96 06/04/17 20:52 105 06/04/17 20:42 95 Nasal Cannula 2.00 06/04/17 20:00 96.7 101 17 153/87 (109) 97 06/04/17 18:17 Nasal Cannula 2.00 06/04/17 18:10 96.9 96 18 151/94 (113) 96 06/04/17 17:00 96.9 99 16 151/94 (113) 99 06/04/17 16:54 97.3 122 18 141/64 (89) 94 06/04/17 12:30 97 Nasal Cannula 2.00 06/04/17 12:00 97.4 109 18 165/79 (107) 94 06/04/17 12:00 111 General: Alert and Oriented, Mild distress Eye: Normal conjuctiva, Vision unchanged Respiratory: Lungs CTA, Non-labored respirations Cardiology: Normal rate Neurologic: Alert, Oriented Psychiatric: Cooperative, Appropriate mood & affect Exam Comments Normal motor exam is b/l UE LE, IPS on the right 3-/5, on the left 3/5, hamstring on the right 4/5, on the left 4/5. Quadriceps on the right 4-/5 on the left, 5-/5. TA on the left 5/5, on the right about 4/5. DTRs are 2+, b/l UE, LE. Plantars are upgoing bilaterally. No ankle clonus. Sensory level at T4. Normal finger nose test b/l. Objective Radiology Results Last 72 hours Impressions Brain MRI 06/04/17 0227 Signed Impressions: Service Date/Time: Sunday, June 04, 2017 03:38 - CONCLUSION: Unremarkable MRI of the brain. Juma Dunn MD Thoracic Spine MRI 06/04/17 0000 Signed Impressions: Service Date/Time: Sunday, June 04, 2017 03:38 - CONCLUSION: The postcontrast images demonstrate diffuse abnormal enhancement within the body the cord from approximately T1 down to approximately T8. This suggest some type of inflammatory process involving the thoracic spinal cord. This may be acute transverse myelitis. Juma Dunn MD Lumbar Puncture Fluoroscopy 06/04/17 0000 Signed Impressions: Service Date/Time: Sunday, June 04, 2017 10:33 - CONCLUSION: Uncomplicated fluoroscopically guided lumbar puncture with pressures as above. Camden Camp MD Cervical Spine MRI 06/04/17 0000 Signed Impressions: Service Date/Time: Sunday, June 04, 2017 03:38 - CONCLUSION: 1. No abnormal enhancement is seen within the body of the cervical spinal cord on these postcontrast images. 2. There is abnormal signal within the body of the cervical spinal cord with widening of the spinal cord at the level of C4-C6 suggestive of edema and swelling. Juma Dunn MD Thoracic Spine MRI 06/03/17 0000 Signed Impressions: Service Date/Time: May 22:37 - CONCLUSION: 1. There is abnormal increased signal within the central body of the spinal cord from T1 down to approximately T9-T10. This abnormal increased signal appears to be a combination of a syrinx and myelopathy involving the spinal cord. Juma Dunn MD Lumbar Spine MRI 06/03/17 0000 Signed Impressions: Service Date/Time: May 22:37 - CONCLUSION: 1. Mild broad-based bulging at L4-5. 2. Broad-based bulging and focal central bulging/protrusion L5-S1. 3. Sacral cyst at S2 measuring 2.2 x 1.8 cm. 4. Bilateral facet arthritis at L4-5 and L5-S1. Juma Dunn MD Head CT 06/03/17 0000 Signed Impressions: Service Date/Time: May 20:20 - CONCLUSION: Negative noncontrast head CT. Camden Rivera MD Cervical Spine MRI 06/03/17 0000 Signed Impressions: Service Date/Time: May 22:37 - CONCLUSION: 1. Grossly abnormal increased signal throughout the central body of the spinal cord from C2-C3 down into the thoracic spinal cord. There is some widening of the cord from C4-C6. 2. Mild broad-based bulging C4-C5 3. Focal small central bulge/protrusion C5-6 4. Broad-based bulging C6-C7. Juma Dunn MD Micro and Labs Date/Time Source Procedure Growth Status 06/04/17 09:36 Cerebral Spinal Fluid Lumbar Puncture Fungal Smear - Final NO FUNGAL ELEMENTS SEEN. Resulted 06/04/17 09:36 Cerebral Spinal Fluid Lumbar Puncture Fungal Culture Pending Resulted 06/03/17 16:59 Urine Clean Catch Urine Culture - Final 50-100,000 CFU/ML MIXED GRAM POSITIVE... Complete Angie De Los Santos MD Jun 05, 2017 11:11
[2017-06-05] MEDS: BACLOFEN 10 MG TAB PO SCH ×2 (13:29→20:36)
[2017-06-05] MEDS ORDERED: INSULIN DETEMIR 100 UNITS/ML VIAL SQ ONE (13:30)
--- NOTE | 2017-06-05 13:43 | ECHRPT ---
Indication: cva/tia CONCLUSIONS BP: / HR: Rhythm: MEASUREMENTS (Male / Female) Normal Values Technical Quality:Fair 2D ECHO LV Diastolic Diameter PLAX 3.1 cm 4.2 - 5.9 / 3.9 - 5.3 cm LV Systolic Diameter PLAX 2.1 cm IVS Diastolic Thickness 2.2 cm 0.6 - 1.0 / 0.6 - 0.9 cm LVPW Diastolic Thickness 1.1 cm 0.6 - 1.0 / 0.6 - 0.9 cm LV Relative Wall Thickness 1.1 RV Internal Dim ED PLAX 2.4 cm M-MODE Aortic Root Diameter MM 3.3 cm LA Systolic Diameter MM 3.2 cm LA Ao Ratio MM 1.0 AV Cusp Separation MM 2.3 cm DOPPLER Mitral E Point Velocity 62.7 cm/s Mitral A Point Velocity 113.0 cm/s Mitral E to A Ratio 0.6 TR Peak Velocity 236.0 cm/s TR Peak Gradient 22.3 mmHg Right Atrial Pressure 10.0 mmHg Pulmonary Artery Systolic Pressu 32.3 mmHg Right Ventricular Systolic Press 32.3 mmHg FINDINGS LEFT VENTRICLE Mild concentric left ventricular hypertrophy. Normal left ventricular size. The left ventricular systolic function is hyperdynamic with an estimated ejection fraction in the ra nge of 65- 70%. RIGHT VENTRICLE Normal right ventricular size and systolic function. LEFT ATRIUM The left atrial size is normal. RIGHT ATRIUM The right atrial size is normal. ATRIAL SEPTUM Normal atrial septal thickness without atrial level shunting by limited color doppler interrogation. AORTA The aortic root and proximal ascending aorta are normal in size on limited imaging. MITRAL VALVE Structurally normal mitral valve. Mild mitral valve regurgitation. AORTIC VALVE Trileaflet aortic valve. No aortic valve regurgitation. No aortic valve stenosis. TRICUSPID VALVE Structurally normal tricuspid valve. There is mild tricuspid valve regurgitation. The estimated pulmonary arterial pressure is 32.3 mmHg. PULMONARY VALVE No pulmonary valve regurgitation or stenosis. VESSELS The inferior vena cava is normal in size. PERICARDIUM No pericardial effusion. Himanshu Ledesma MD (Electronically Signed) Final Date:05 June 2017 13:42
[2017-06-05 14:59] LABS: HSV 1,PCR Negative (Negative)
[2017-06-05] MEDS ORDERED: MAGNESIUM HYDROXIDE SUSP 30 ML CUP PO PRN (18:15)
--- NOTE | 2017-06-05 18:21 | HHI.PR ---
Subjective Remarks No improvement in neuro deficits. Sensation loss and weakness start below the diaphragm. No pain is reported. No fevers or chills. Objective Vital Signs Date Time Temp Pulse Resp B/P (MAP) Pulse Ox O2 Delivery O2 Flow Rate FiO2 06/05/17 16:00 97.4 85 18 139/83 (101) 99 06/05/17 12:00 97.6 94 18 141/70 (93) 99 06/05/17 08:54 99 Nasal Cannula 2.00 06/05/17 08:24 Nasal Cannula 2.00 06/05/17 08:00 97.4 83 17 146/91 (109) 98 06/05/17 04:00 97.1 86 17 156/85 (108) 95 06/05/17 04:00 87 06/05/17 00:24 89 06/05/17 00:00 96.9 92 16 152/86 (108) 96 06/04/17 20:52 105 06/04/17 20:42 95 Nasal Cannula 2.00 06/04/17 20:00 96.7 101 17 153/87 (109) 97 06/04/17 18:17 Nasal Cannula 2.00 I/O 06/04/17 06/04/17 06/04/17 06/05/17 06/05/17 06/05/17 07:00 15:00 23:00 07:00 15:00 23:00 Intake Total 240 ml 960 ml 340 ml Balance 240 ml 960 ml 340 ml Intake Oral 240 ml 960 ml 240 ml IV Total 100 ml # Voids 4 6 3 3 4 Result Diagram: 06/03/17 1639 06/03/17 1639 Objective Remarks GENERAL: NAD, A&Ox3 HEAD: Normocephalic. NECK: Supple, trachea midline. No lymphadenopathy. EYES: No scleral icterus. No injection or drainage. CARDIOVASCULAR: Regular rate and rhythm without murmurs, gallops, or rubs. RESPIRATORY: Breath sounds equal bilaterally. No accessory muscle use. GASTROINTESTINAL: Abdomen soft, non-tender, nondistended. MUSCULOSKELETAL: No cyanosis, or edema. SKIN: Warm and dry. NEURO: No numbness and weakness below the diaphragm most prominently in both legs. I could not elicit reflexes on exam. A/P Problem List: (1) Progressive focal motor weakness ICD Code: R53.1 - Weakness Status: Acute Assessment and Plan 47-year-old female admitted secondary to progressive weakness and numbness below the diaphragm with incontinence. Myelopathy Acute motor weakness Spinal cord edema acute neuro deficits Possible acute myelitis Possible spinal neoplasm Possible autoimmune phenomenon Continue antibiotics Continue antivirals Continue steroids Continue to monitor neuro exam Watch closely to ensure no progression above the diaphragm Transferred to [facility] has been recommended for spinal biopsy to evaluate for neoplasm Brain MRI is unremarkable Spinal imaging shows diffuse changes including edema and a widening process at the T-spine area Follow lumbar puncture results Neurology following Neurosurgery following Diabetes mellitus type 2 Steroids are causing disruption of blood sugars Currently uncontrolled Gradually insulins upward for control Follow blood sugars Insulin sliding scale Diabetic diet DVT prophylaxis SCDs Chemoprophylaxis avoided for now secondary to recent lumbar puncture Joe Milan MD Jun 05, 2017 18:21
[2017-06-05] MEDS ORDERED: DOCUSATE SODIUM 100 MG CAP PO SCH (21:00)
[2017-06-06] MEDS ORDERED: INSULIN DETEMIR 100 UNITS/ML VIAL SQ SCH (21:00)
[2017-06-07 03:52] LABS: HAEMOPHILUS FLU AG TYPE B Not Detected (Not Detected)
[2017-06-07 10:14] LABS: CSF CRYPTOCOCCUS AG CONF ND (NOT DETECTD)
[2017-06-08 08:29] LABS: METHYLMALONIC ACID 0.08 nmol/mL (<=0.40)
[2017-06-08 17:53] LABS: CSF CRYPTOCOCCUS ANTIGEN NOT DETECTED (NEGATIVE)
== END 2017-06-05 21:05 | disposition short-term general hospital (02) | DRG 97 ==
LOC: NEPC 16:20 → NEDA 21:41 → NEPGCP 23:45 → OBSVTOIN 06-04 00:29 → N06A 06-04 18:00
PROVIDERS: ADMIT Hospitalist; ATTEND Hospitalist
PROC: 009U3ZX Drainage of Spinal Canal, Percutaneous Approach, Diagnostic (ICD-10-PCS; principal; 2017-06-04)
DX: G04.91 Myelitis, unspecified (principal); G95.19 Other vascular myelopathies; G95.9 Disease of spinal cord, unspecified; E11.9 Type 2 diabetes mellitus without complications; R53.1 Weakness; R32 Unspecified urinary incontinence; M79.651 Pain in right thigh; M79.652 Pain in left thigh; R20.0 Anesthesia of skin; M51.36 Other intervertebral disc degeneration, lumbar region; Z79.4 Long term (current) use of insulin
CPT/HCPCS: 62270; 70450; 70553; 72141; 72142; 72146; 72147; 72148; 77003; 80053; 80061; 81001; 82040; 82042; 82550; 82607; 82746; 82784; 82945; 82948; 83873; 83916; 83921; 84157; 84165; 84207; 84425; 84439; 84443; 84450; 84460; 84702; 84703; 85025; 85610; 85652; 85730; 86038; 86140; 86335; 86403; 86430; 86592; 86618; 86790; 87015; 87070; 87086; 87102; 87116; 87205; 87206; 87529; 88108; 89051; 93306; 94150; A9579; C9113; G0378; G8987-GP; G8988-GP; J0696; J1100; J1815; J2270; J2930; J7050; J7060

== ENCOUNTER 2017-10-02 17:21 | Emergency (ER) | payer OTHER ==
[~2017-10-02] VITALS: Ht 177.8 cm; Wt 110.0 kg
[~2017-10-02 17:21] MED LIST: GLYB5TAB3 PO; LEVEMIR SQ
[2017-10-02 17:40] VITALS: BP 158/77; PULSE 74; RESP 18; TEMP 98.2; O2SAT 100
[2017-10-02] MEDS ORDERED: ONDANSETRON ODT 4 MG TAB PO ONE (17:45)
[2017-10-02] MEDS ORDERED: MORPHINE SULFATE 4 MG/ML INJ IV PUSH ONE (17:45)
[2017-10-02] MEDS ORDERED: SODIUM CHLORIDE 0.9% FLUSH 10 ML FLUSH IVF PRN (17:45)
[2017-10-02 18:15] LABS: AUTOMATED NEUTROPHIL # 4.5 TH/MM3 (1.8-7.7); BASOPHIL % 0.4 % (0.0-2.0); EOSINOPHIL # 0.3 TH/MM3 (0-0.4); EOSINOPHIL % 3.3 % (0.0-4.0); HEMATOCRIT 42.2 % (35.0-46.0); LYMPH % 31.3 % (9.0-44.0); LYMPHOCYTE # 2.5 TH/MM3 (1.0-4.8); MEAN CELL VOLUME 85.2 FL (80.0-100.0); MEAN CORPUSCULAR HEMOGLOBIN 28.2 PG (27.0-34.0); MEAN CORPUSCULAR HGB CONC 33.1 % (32.0-36.0); MEAN PLATELET VOLUME 9.6 FL (7.0-11.0); MONOCYTE # 0.7 TH/MM3 (0-0.9); PLATELET COUNT 174 TH/MM3 (150-450); RED BLOOD COUNT 4.95 MIL/MM3 (4.00-5.30); RED CELL DISTRIBUTION WIDTH 16.1 % (11.6-17.2)
[2017-10-02 18:17] VITALS: BP 120/60; PULSE 78; RESP 18; O2SAT 97
[2017-10-02 18:20] VITALS: O2SAT 97
[2017-10-02 18:38] LABS: TROPONIN I LESS THAN 0.02 NG/ML (0.02-0.05)
--- NOTE | 2017-10-02 18:38 | RADRPT ---
EXAM DATE/TIME: 10/02/2017 18:12 [place] COMPARISON: No previous studies available for comparison. INDICATIONS : Shortness of breath and chest pain. MEDICAL HISTORY : Hypertension. SURGICAL HISTORY : Appendectomy. ENCOUNTER: Initial ACUITY: 1 day PAIN SCORE: 3/10 LOCATION: chest FINDINGS: A single view of the chest demonstrates the lungs to be symmetrically aerated without evidence of mas s, infiltrate or effusion. The cardiomediastinal contours are unremarkable. Osseous structures are intact. CONCLUSION: No acute pulmonary infiltrates. Juma Dunn MD on October 02, 2017 at 18:35 Board Certified Radiologist. This report was verified electronically.
[2017-10-02 18:42] LABS: BICARBONATE 24.8 MEQ/L (21.0-32.0); BLOOD UREA NITROGEN 8 MG/DL (7-18); CALCIUM 9.1 MG/DL (8.5-10.1); CHLORIDE 102 MEQ/L (98-107); CREATININE 0.51 MG/DL (0.50-1.00); GLOMERULAR FILTRATION RATE 158 ML/MIN (>89); GLUCOSE,RANDOM 229 MG/DL (74-106); MAGNESIUM 1.9 MG/DL (1.5-2.5); SODIUM (NA) 136 MEQ/L (136-145)
--- NOTE | 2017-10-02 18:55 | PD ---
HPI . Chest pain Chief Complaint: Chest Pain Time Seen by Provider: 17:41 Travel History International Travel<30 days: No Contact w/Intl Traveler<30days: No Traveled to known affect area: No History of Present Illness HPI This patient presents with the acute onset of chest pain. It started about noon time. She states that it initially got better but then got worse again about 5:30 PM. She describes it as a tightness. She initially rated at 8/10. Her pain has been relieved with morphine. It is now down to a 2. Patient reports a positive previous similar history. She states that she was just admitted to [facility] and was there for a couple of weeks with similar complaints. She states that her chest pain and shortness of breath were attributed to a myelopathy. PFSH Past Medical History Anemia: Yes Arthritis: Yes (arthritis in left knee) Asthma: No Autoimmune Disease: No Anxiety: No Depression: No Heart Rhythm Problems: No Cancer: No Cardiovascular Problems: No High Cholesterol: No Chemotherapy: No Chest Pain: No Congestive Heart Failure: No COPD: No Cerebrovascular Accident: No Diabetes: Yes Patient Takes Glucophage: No Endocrine: Yes Gastrointestinal Disorders: Yes (acid reflux) GERD: Yes Genitourinary: Yes (uti currently) Hiatal Hernia: No Heparin Induced Thrombocytopen: No Hypertension: No Immune Disorder: No Implanted Vascular Access Dvce: No Kidney Stones: No Musculoskeletal: Yes Neurologic: Yes (current admisson) Psychiatric: No Reproductive: No Respiratory: No Migraines: Yes (occasionally) Radiation Therapy: No Renal Failure: No Seizures: No Sickle Cell Disease: No Sleep Apnea: No Thyroid Disease: No Ulcer: No ?: Not LMP: 09/19/17 : 3 Para: 4 Past Surgical History Abdominal Surgery: Yes (3 x c-s) AICD: No Appendectomy: Yes Arteriovenous Shunt: No Cardiac Surgery: No Section: Yes (3) Ear Surgery: No Endocrine Surgery: No Eye Surgery: No Genitourinary Surgery: Yes (appendectomy) Gynecologic Surgery: Yes (3 x c-s) Insulin Pump: No Joint Replacement: No Neurologic Surgery: No Oral Surgery: No Pacemaker: No Thoracic Surgery: No Other Surgery: Yes (3 x c-s/ 2015 appendectomy/ 1989cyst of sacral removed) Social History Alcohol Use: No Tobacco Use: No Substance Use: No Allergies-Medications (Allergen,Severity, Reaction): Coded Allergies: No Known Allergies (Unverified , 06/03/17) Reported Meds & Prescriptions Reported Meds & Active Scripts Active Reported Glyburide 5 Mg Tab 5 Mg PO BID Take with meals at the same time each day Levemir Inj (Insulin Detemir) 1,000 unit/ 10 ML Vial 1 Units SQ Do not mix with any other Insulin. Review of Systems Except as stated in HPI: all other systems reviewed are Neg Cardiovascular: Positive: Chest Pain or Discomfort Respiratory: Positive: Shortness of Breath Neurologic: Positive: Other (Paraplegia. She reports a history of a myelopathy. This was diagnosed at [facility]. This is a new problem for her. It started in about May of this year. She was initially seen here and was subsequently transferred to [facility] for further evaluation and treatment.) Physical Exam Narrative GENERAL: Awake and alert and in no acute distress. SKIN: warm/dry. HEAD: Normocephalic. Atraumatic. EYES: Pupils equal and round. No scleral icterus. No injection or drainage. ENT: No nasal bleeding or discharge. Mucous membranes pink and moist. NECK: Trachea midline. Full range of motion without pain.. CARDIOVASCULAR: Regular rate and rhythm. Heart sounds are normal. RESPIRATORY: No accessory muscle use. Clear to auscultation. Breath sounds equal bilaterally. GASTROINTESTINAL: Abdomen soft. : She has an indwelling Pierson catheter. MUSCULOSKELETAL: No obvious deformities. NEUROLOGICAL: Awake and alert. No obvious cranial nerve deficits. Paraplegia. PSYCHIATRIC: Appropriate mood and affect; insight and judgment normal. Data Data Last Documented VS Vital Signs Date Time Temp Pulse Resp B/P (MAP) Pulse Ox O2 Delivery O2 Flow Rate FiO2 10/02/17 18:20 97 Nasal Cannula 2.00 10/02/17 18:17 78 18 10/02/17 17:40 98.2 Orders Orders Basic Metabolic Panel (Bmp) (10/02/17 17:45) Complete Blood Count With Diff (10/02/17 17:45) Magnesium (Mg) (10/02/17 17:45) Troponin I (10/02/17 17:45) Chest, Single Ap (10/02/17 17:45) Ecg Monitoring (10/02/17 17:45) Iv Access Insert/Monitor (10/02/17 17:45) Oximetry (10/02/17 17:45) Morphine Inj (Morphine Inj) (10/02/17 17:45) Sodium Chloride 0.9% Flush (Ns Flush) (10/02/17 17:45) Ondansetron Odt (Zofran Odt) (10/02/17 17:45) Radiology Film Requests (10/02/17 ) Labs Laboratory Tests Test 10/02/17 17:55 White Blood Count 8.0 TH/MM3 Red Blood Count 4.95 MIL/MM3 Hemoglobin 14.0 GM/DL Hematocrit 42.2 % Mean Corpuscular Volume 85.2 FL Mean Corpuscular Hemoglobin 28.2 PG Mean Corpuscular Hemoglobin Concent 33.1 % Red Cell Distribution Width 16.1 % Platelet Count 174 TH/MM3 Mean Platelet Volume 9.6 FL Neutrophils (%) (Auto) 56.0 % Lymphocytes (%) (Auto) 31.3 % Monocytes (%) (Auto) 9.0 % Eosinophils (%) (Auto) 3.3 % Basophils (%) (Auto) 0.4 % Neutrophils # (Auto) 4.5 TH/MM3 Lymphocytes # (Auto) 2.5 TH/MM3 Monocytes # (Auto) 0.7 TH/MM3 Eosinophils # (Auto) 0.3 TH/MM3 Basophils # (Auto) 0.0 TH/MM3 CBC Comment DIFF FINAL Differential Comment Blood Urea Nitrogen 8 MG/DL Creatinine 0.51 MG/DL Random Glucose 229 MG/DL Calcium Level 9.1 MG/DL Magnesium Level 1.9 MG/DL Sodium Level 136 MEQ/L Potassium Level 4.0 MEQ/L Chloride Level 102 MEQ/L Carbon Dioxide Level 24.8 MEQ/L Anion Gap 9 MEQ/L Estimat Glomerular Filtration Rate 158 ML/MIN Troponin I LESS THAN 0.02 NG/ML MDM Medical Decision Making Medical Screen Exam Complete: Yes Emergency Medical Condition: Yes Medical Record Reviewed: Yes (Patient was admitted here in mid May for progressive motor weakness. She was subsequently transferred to [facility].) Interpretation(s) EKG shows a normal sinus rhythm with no acute ischemic changes. Differential Diagnosis Differential diagnosis of chest pain includes but is not limited to musculoskeletal pain, pulmonary embolism, acute coronary syndrome, pneumonia, pleurisy Narrative Course This patient presents with chest pain and shortness of breath. Cardiac evaluation was initiated. The patient reports a similar episode recently which caused a hospitalization at [facility]. We are attempting to obtain those records. CBC & BMP Diagram 10/02/17 17:55 Calcium Level 9.1, Magnesium Level 1.9 trop < 0.02 Chest x-ray is negative per the radiologist. I have discussed disposition with the patient. She reports that the symptoms that she is having today are the same symptoms that she had about a month ago which resulted in an admission to [facility] for 2 weeks. She feels that she probably needs to go back to [facility]. Unfortunately, I have not yet received her records from [facility] so I do not know what they think about this chest pain and shortness of breath. We do have a call out to [facility] for transfer. This will not be accomplished before I get off duty tonight. Patient's care is being turned over to the oncoming physician pending disposition. Diagnosis Primary Impression: Chest pain Qualified Codes: R07.9 - Chest pain, unspecified Condition: Stable Rachna Mantilla MD October 02, 2017 18:55
--- NOTE | 2017-10-03 17:31 | EKG ---
Date Performed: 10/02/2017 Time Performed: 17:38:37 PTAGE: 47 years EKG: Sinus rhythm POSSIBLE RIGHT VENTRICULAR CONDUCTION DELAY BORDERLINE ECG NO PREVIOUS TRACING DOCTOR: Isac Xiao Interpretating Date/Time 10/03/2017 17:31:12
== END 2017-10-02 19:22 | disposition home or self-care (01) ==
LOC: NEPC 17:21
DX: R07.9 Chest pain, unspecified (principal); R94.31 Abnormal electrocardiogram [ECG] [EKG]; R06.02 Shortness of breath; E11.9 Type 2 diabetes mellitus without complications; K21.9 Gastro-esophageal reflux disease without esophagitis; Z79.4 Long term (current) use of insulin
CPT/HCPCS: 71045; 80048; 83735; 84484; 85025; 93005; 96374; J2270

== ENCOUNTER 2017-10-04 11:58 | Inpatient (IN) | payer OTHER ==
[~2017-10-04] VITALS: Ht 177.8 cm; Wt 116.5 kg
[2017-10-04 12:10] VITALS: BP 123/81; PULSE 83; RESP 17; TEMP 98.3; O2SAT 100
--- NOTE | 2017-10-04 13:08 | PD ---
HPI Chief Complaint: Numbness/Tingling Time Seen by Provider: 12:42 Travel History International Travel<30 days: No Contact w/Intl Traveler<30days: No Traveled to known affect area: No History of Present Illness HPI This is a 47-year-old female who has a history of neuromyelitis optica who presents to the emergency department with 2 days of increasing sensory loss in her hands arms and neck area, constant, severe, not able to feel anything on her arms or upper chest. She follows at [facility] with Dr. Hickman and has been treated in the past with rituximab, plasmapheresis and steroids. She called her neurologist who told her to come to the emergency department and said she would likely need to be transferred to [facility]. PFSH Past Medical History Hx Anticoagulant Therapy: No Anemia: Yes Arthritis: Yes (arthritis in left knee) Asthma: No Autoimmune Disease: No Anxiety: No Depression: No Heart Rhythm Problems: No Cancer: No Cardiovascular Problems: No High Cholesterol: No Chemotherapy: No Chest Pain: No Congestive Heart Failure: No COPD: No Cerebrovascular Accident: No Diabetes: Yes Patient Takes Glucophage: No Diminished Hearing: No Endocrine: Yes Gastrointestinal Disorders: Yes (acid reflux) GERD: Yes Genitourinary: Yes (frequent UTI) Hiatal Hernia: No Heparin Induced Thrombocytopen: No Hypertension: No Immune Disorder: No Implanted Vascular Access Dvce: No Kidney Stones: No Musculoskeletal: Yes Neurologic: Yes (neuromyelitis optica) Psychiatric: No Reproductive: No Respiratory: No Migraines: Yes (occasionally) Radiation Therapy: No Renal Failure: No Seizures: No Sickle Cell Disease: No Sleep Apnea: No Thyroid Disease: No Ulcer: No ?: Not : 4 Para: 3 : 1 Past Surgical History Abdominal Surgery: Yes (3 x c-s) AICD: No Appendectomy: Yes Arteriovenous Shunt: No Cardiac Surgery: No Section: Yes (3) Ear Surgery: No Endocrine Surgery: No Eye Surgery: No Genitourinary Surgery: Yes (appendectomy) Gynecologic Surgery: Yes (c section) Hysterectomy: No Insulin Pump: No Joint Replacement: No Neurologic Surgery: No Oral Surgery: No Pacemaker: No Thoracic Surgery: No Other Surgery: Yes (1988 sacral cyst removed) Social History Alcohol Use: No Tobacco Use: No Substance Use: No Allergies-Medications (Allergen,Severity, Reaction): Coded Allergies: No Known Allergies (Unverified , 06/03/17) Reported Meds & Prescriptions Reported Meds & Active Scripts Active Reported Glyburide 5 Mg Tab 5 Mg PO BID Take with meals at the same time each day Levemir Inj (Insulin Detemir) 1,000 unit/ 10 ML Vial 1 Units SQ Do not mix with any other Insulin. Review of Systems Except as stated in HPI: all other systems reviewed are Neg Physical Exam Narrative GENERAL:Well appearing, no acute distress SKIN: Focused skin assessment warm and dry. HEAD: Atraumatic. Normocephalic. EYES: Pupils equal and round. No injection or drainage. ENT: Moist mucous membranes NECK: Trachea midline. CARDIOVASCULAR: Regular rate and rhythm. No murmur appreciated. RESPIRATORY: Clear to auscultation. Breath sounds equal bilaterally. GASTROINTESTINAL: Abdomen soft, non-tender, nondistended. MUSCULOSKELETAL: No obvious deformities. NEUROLOGICAL: Awake and alert. Decreased sensation to light touch in the bilateral upper extremities, neck, and chest and back down to the umbilicus PSYCHIATRIC: Appropriate mood and affect; insight and judgment normal. Data Data Last Documented VS Vital Signs Date Time Temp Pulse Resp B/P (MAP) Pulse Ox O2 Delivery O2 Flow Rate FiO2 10/04/17 12:10 98.3 83 17 123/81 (95) 100 Orders Orders Complete Blood Count With Diff (10/04/17 13:14) Comprehensive Metabolic Panel (10/04/17 13:14) ^ Insert Iv (10/04/17 13:14) Urinalysis - C+S If Indicated (10/04/17 13:17) Urine Culture (10/04/17 13:25) Consult Neurology (10/04/17 ) Mri Brain W&W/O Contrast (10/04/17 ) Mri C Spine W&W/O Contrast (10/04/17 ) Mri T Spine W & W/O Contrast (10/04/17 ) Mri L Spine W&W/O Contrast (10/04/17 ) Ceftriaxone Inj (Rocephin Inj) (10/04/17 14:15) Urinary Catheter Insert/Apply (10/04/17 14:15) Admit Order (Ed Use Only) (10/04/17 14:17) Admit To Inpatient (10/04/17 ) Code Status (10/04/17 14:15) Vital Signs (Adult) Q4H (10/04/17 14:15) Activity Oob With Assistance (10/04/17 14:15) Diet 1800 Ada Cons Carb (10/04/17 Dinner) Sodium Chloride 0.9% Flush (Ns Flush) (10/04/17 14:15) Sodium Chloride 0.9% Flush (Ns Flush) (10/04/17 21:00) Acetaminophen (Tylenol) (10/04/17 14:15) Metoclopramide Inj (Reglan Inj) (10/04/17 14:15) Comprehensive Metabolic Panel (10/05/17 06:00) Complete Blood Count With Diff (10/05/17 06:00) Pt Request For Service (10/04/17 14:15) Case Management Consult (10/04/17 14:15) Heparin Inj (Heparin Inj) (10/04/17 15:00) Acetaminophen (Tylenol) (10/04/17 14:15) Naloxone Inj (Narcan Inj) (10/04/17 14:15) Magnesium Hydroxide Liq (Milk Of Magnesi (10/04/17 14:15) Inpatient Certification (10/04/17 ) Bedside Glucose NATY.CSUGAR (10/04/17 14:15) Blood Glucose Goal (Criteria) (10/04/17 14:15) Hypoglycemia 70 Mg/Dl Or < (10/04/17 14:15) Notify Dr: Other (10/04/17 14:15) Dextrose 50% In Daniel (Vial) Inj (D50w (Vi (10/04/17 14:15) Glucagon Inj (Glucagon Inj) (10/04/17 14:15) Insulin Aspart Supplemtl Scale (Novolog (10/04/17 17:00) Albuterol-Ipratropium Neb (Duoneb Neb) (10/04/17 14:15) Labs Laboratory Tests Test 10/04/17 13:25 White Blood Count 7.5 TH/MM3 Red Blood Count 4.56 MIL/MM3 Hemoglobin 12.7 GM/DL Hematocrit 38.8 % Mean Corpuscular Volume 85.1 FL Mean Corpuscular Hemoglobin 27.9 PG Mean Corpuscular Hemoglobin Concent 32.7 % Red Cell Distribution Width 16.2 % Platelet Count 179 TH/MM3 Mean Platelet Volume 10.0 FL Neutrophils (%) (Auto) 60.0 % Lymphocytes (%) (Auto) 27.4 % Monocytes (%) (Auto) 10.3 % Eosinophils (%) (Auto) 1.9 % Basophils (%) (Auto) 0.4 % Neutrophils # (Auto) 4.5 TH/MM3 Lymphocytes # (Auto) 2.0 TH/MM3 Monocytes # (Auto) 0.8 TH/MM3 Eosinophils # (Auto) 0.1 TH/MM3 Basophils # (Auto) 0.0 TH/MM3 CBC Comment DIFF FINAL Differential Comment Urine Color YELLOW Urine Turbidity CLOUDY Urine pH 5.0 Urine Specific [place] 1.014 Urine Protein 30 mg/dL Urine Glucose (UA) 300 mg/dL Urine Ketones NEG mg/dL Urine Occult Blood MOD Urine Nitrite NEG Urine Bilirubin NEG Urine Urobilinogen LESS THAN 2.0 MG/DL Urine Leukocyte Esterase LARGE Urine RBC 48 /hpf Urine WBC /hpf Urine WBC Clumps MOD Urine Squamous Epithelial Cells 2 /hpf Urine Calcium Oxalate Crystals RARE /hpf Urine Bacteria MOD /hpf Urine Hyaline Casts 4 /lpf Urine Mucus MOD /lpf Microscopic Urinalysis Comment CULTURE INDICATED Blood Urea Nitrogen 8 MG/DL Creatinine 0.52 MG/DL Random Glucose 238 MG/DL Total Protein 7.2 GM/DL Albumin 3.1 GM/DL Calcium Level 9.0 MG/DL Alkaline Phosphatase 74 U/L Aspartate Amino Transf (AST/SGOT) 18 U/L Alanine Aminotransferase (ALT/SGPT) 14 U/L Total Bilirubin 0.6 MG/DL Sodium Level 139 MEQ/L Potassium Level 3.9 MEQ/L Chloride Level 103 MEQ/L Carbon Dioxide Level 26.6 MEQ/L Anion Gap 9 MEQ/L Estimat Glomerular Filtration Rate 154 ML/MIN Human Chorionic Gonadotropin, Quant LESS THAN 1 MIU/ML MDM Medical Decision Making Medical Screen Exam Complete: Yes Emergency Medical Condition: Yes Interpretation(s) Afebrile, no tachycardia, normotensive No leukocytosis Electrolytes are reassuring Urinalysis demonstrates a urinary tract infection Last 24 hours Impressions Thoracic Spine MRI 10/04/17 0000 Signed Impressions: Service Date/Time: Wednesday, October 04, 2017 15:54 - CONCLUSION: 1. No abnormal enhancement or signal abnormality in the thoracic cord. Apparent interval resolution of diffusely abnormal thoracic cord enhancement extending to approximately T7-8 level noted on prior exam. 2. Previously described potential tiny syrinx at T5-6 level not demonstrated on current exam. Alexis Diaz MD Lumbar Spine MRI 10/04/17 0000 Signed Impressions: Service Date/Time: Wednesday, October 04, 2017 15:54 - CONCLUSION: 1. No abnormal distal cord signal or enhancement. 2. Redemonstration of mild degenerative disc disease at L4-5 and L5-S1 with bilateral facet arthropathy. 3. No significant central canal or neuroforaminal stenosis. Alexis Diaz MD Cervical Spine MRI 10/04/17 0000 Signed Impressions: Service Date/Time: Wednesday, October 04, 2017 15:54 - CONCLUSION: Substantial progression cephalad Abnormal enhancement suggesting active disease in the high cervical cord.. . Findings have been discussed with Dr. Mandel on today's date. Mario Mckinney MD FACR Brain MRI 10/04/17 0000 Signed Impressions: Service Date/Time: Wednesday, October 04, 2017 15:54 - CONCLUSION: 1. Focal subcortical white matter edema in the left medial frontal paraventricular high convexities extending to the corpus callosum. There is associated enhancement of this region with questionably subtle restricted diffusion. Findings are consistent with active demyelinating process. Alexis Diaz MD Differential Diagnosis Myelitis, electrolyte abnormality, urinary tract infection Narrative Course This is a 47-year-old female who presents to the emergency department with ascending numbness that has been worsening over the past 4 days. She has a history of neuromyelitis optica. Pt was placed on a monitor and an IV was established. I discussed the case with Dr. Blancas the neurologist on-call who recommended obtaining an MRI. MRI was obtained and patient was transferred to the floor. Patient was also treated with IV antibiotics for urinary tract infection. Dr. Mckinney contacted me and said that the patient has extensive demyelination extending up into the cervical cranial junction. I spoke to Dr. cortes and we agreed the patient should be transferred to the intensive care unit for close monitoring. Diagnosis Primary Impression: Neuromyelitis optica Additional Impression: UTI (urinary tract infection) Qualified Codes: N30.00 - Acute cystitis without hematuria Admitting Information Admitting Physician Requests: Ricarda Jett MD October 04, 2017 13:08
[2017-10-04 13:39] LABS: AUTOMATED NEUTROPHIL # 4.5 TH/MM3 (1.8-7.7); BASOPHIL % 0.4 % (0.0-2.0); EOSINOPHIL # 0.1 TH/MM3 (0-0.4); EOSINOPHIL % 1.9 % (0.0-4.0); HEMATOCRIT 38.8 % (35.0-46.0); HEMOGLOBIN 12.7 GM/DL (11.6-15.3); LYMPH % 27.4 % (9.0-44.0); MEAN CELL VOLUME 85.1 FL (80.0-100.0); MEAN CORPUSCULAR HEMOGLOBIN 27.9 PG (27.0-34.0); MEAN CORPUSCULAR HGB CONC 32.7 % (32.0-36.0); MONO % 10.3 % (0.0-8.0); MONOCYTE # 0.8 TH/MM3 (0-0.9); PLATELET COUNT 179 TH/MM3 (150-450); RED BLOOD COUNT 4.56 MIL/MM3 (4.00-5.30); RED CELL DISTRIBUTION WIDTH 16.2 % (11.6-17.2); WHITE BLOOD COUNT 7.5 TH/MM3 (4.0-11.0)
[2017-10-04 13:51] LABS: BACTERIA, URINE MOD /hpf; BILIRUBIN, URINE NEG (NEG); BLOOD, URINE MOD (NEG); CALCIUM OXALATE CRYSTALS,URINE RARE /hpf; GLUCOSE,URINE 300 mg/dL (NEG); HYALINE CAST, URINE 4 /lpf (RARE); KETONE, URINE NEG (NEG); MUCUS URINE MOD /lpf (OCC); NITRITE,URINE NEG (NEG); SQUAMOUS EPITHELIAL CELL URINE 2 /hpf (0-5); URINE COLOR YELLOW (YELLW/STRAW); URINE LEUKOCYTE ESTERASE LARGE (NEG); WHITE BLOOD CELL CLUMPS MOD
[2017-10-04 14:09] LABS: ALBUMIN 3.1 GM/DL (3.4-5.0); ALKALINE PHOSPHATASE 74 U/L (45-117); ALT (GPT) 14 U/L (10-53); AST (GOT) 18 U/L (15-37); BICARBONATE 26.6 MEQ/L (21.0-32.0); BLOOD UREA NITROGEN 8 MG/DL (7-18); CHLORIDE 103 MEQ/L (98-107); CREATININE 0.52 MG/DL (0.50-1.00); GLOMERULAR FILTRATION RATE 154 ML/MIN (>89); GLUCOSE,RANDOM 238 MG/DL (74-106); SODIUM (NA) 139 MEQ/L (136-145); TOTAL BILIRUBIN ADULT 0.6 MG/DL (0.2-1.0); TOTAL PROTEIN 7.2 GM/DL (6.4-8.2)
[2017-10-04] MEDS ORDERED: METOCLOPRAMIDE HCL 10 MG/2 ML VIAL IV PUSH PRN (14:15)
[2017-10-04] MEDS ORDERED: ACETAMINOPHEN 325 MG TAB PO PRN ×2 (14:15)
[2017-10-04] MEDS ORDERED: RESP: ALBUTEROL 2.5 MG/IPRATROPIUM 0.5 MG NEB (PRN) NEB (14:15)
[2017-10-04] MEDS ORDERED: SODIUM CHLORIDE 0.9% FLUSH 10 ML FLUSH IV FLUSH PRN (14:15)
[2017-10-04] MEDS ORDERED: GLUCAGON 1 MG/ML VIAL OTHER PRN (14:15)
[2017-10-04] MEDS ORDERED: DEXTROSE 50% IN WATER 50 ML VIAL(D50) IV PUSH PRN (14:15)
[2017-10-04] MEDS ORDERED: MAGNESIUM HYDROXIDE SUSP 30 ML CUP PO PRN (14:15)
[2017-10-04] MEDS ORDERED: NALOXONE HCL 0.4 MG/ML AMP IV PUSH PRN (14:15)
[2017-10-04] MEDS ORDERED: cefTRIAXone INJ 1,000 MG in SODIUM CHLORIDE 0.9% INJ 100 ML IV ONE (14:15)
--- NOTE | 2017-10-04 14:40 | HHI.HP ---
[facility] CRISTIANO Stout Admission Diagnosis neuromyelitis optica Diagnoses: Travel History International Travel<30 Days: No Contact w/Intl Traveler <30 Da: No Traveled to Known Affected Are: No History of Present Illness Written by Ignacio Ann, acting as scribe for Dr. Goodman on 10/04/17 at 14: 40. 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 Patient states she came in 2 days ago with this complaints but now states that she feels it is worsening. She ruled out ACS during that time. Complaints of chest pain, bandlike sensation on her chest, reports shortness of breath secondary to this even at rest,10/31, does not know what relieves or aggravates the situation. Complaints of weakness bilateral upper extremity unable to hold objects and not able to coordinate. States that she was recently discharged from [facility] 09/20/17. States that her last plasmapheresis was done in July. She had 2 cycles of 5 plasmapheresis treatment. She is being taken cared of her son at home and her sister. Does not ambulate. Uses wheelchair and Beth lift. States she is unable to hold herself sitting up. She lost her bowel function bladder since May. States her last Pierson catheter change was when she was released at the hospital [facility] 09/20/17. Denies palpitations, headaches , dizziness. Denies fevers, chills, n/v/d. Patient states that since June 03, 2017 she lost her bilateral lower extremity movement. States it started she felt numbness and tingling sensation on her rib cage and it went all the way down to her legs and her foot. She went to the hospital at that time. She was transferred to tertiary hospital [facility] for further workup and evaluation. Patient has been treated at [facility] since then. She follows at [facility] with Dr. Hickman and was treated with rituximab , plasmapheresis and steroids in the past. 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 Allergies: Coded Allergies: No Known Allergies (Unverified , 06/03/17) Active Ordered Medications Current Medications Medications (Trade) Dose Ordered Sig/Tara Route Start Time Stop Time Status Last Admin Ceftriaxone Sodium 1000 mg/ Sodium Chloride 100 ml @ 200 mls/hr ONCE ONCE IV 10/04/17 14:15 10/04/17 14:44 (NS Flush) 2 ml UNSCH PRN IV FLUSH 10/04/17 14:15 (NS Flush) 2 ml BID IV FLUSH 10/04/17 21:00 (Tylenol) 650 mg Q4H PRN PO 10/04/17 14:15 (Reglan Inj) 5 mg Q6H PRN IV PUSH 10/04/17 14:15 (Heparin Inj) 5,000 units Q12H SQ 10/04/17 15:00 (Tylenol) 650 mg Q6H PRN PO 10/04/17 14:15 (Narcan Inj) 0.4 mg UNSCH PRN IV PUSH 10/04/17 14:15 (Milk Of Magnesia Liq) 30 ml Q12H PRN PO 10/04/17 14:15 (D50w (Vial) Inj) 50 ml UNSCH PRN IV PUSH 10/04/17 14:15 (Glucagon Inj) 1 mg UNSCH PRN OTHER 10/04/17 14:15 (NovoLOG SUPPLEMENTAL SCALE) 1 ACHS SLIDING SCALE SQ 10/04/17 17:00 (Duoneb Neb) 1 ampule Q2HR NEB PRN NEB 10/04/17 14:15 Family History Mother has diabetes, hypertension Father has diabetes Social History Lives with son who takes care of her and sister. Patient is Beth lifted at home,unable to walk uses, wheelchair. Denies alcohol use Denies tobacco use Denies illicit drug use Physical Exam Vital Signs Vital Signs Date Time Temp Pulse Resp B/P (MAP) Pulse Ox O2 Delivery O2 Flow Rate FiO2 10/04/17 12:10 98.3 83 17 123/81 (95) 100 Physical Exam GENERAL: This is an obese, well-developed patient, in no apparent distress. SKIN: Cool and dry. HEAD: Normocephalic. EYES: Pupils equal round and reactive. Extraocular motions intact. No scleral icterus. No injection or drainage. ENT: Nose without bleeding. Throat without erythema. Uvula midline. Airway patent. NECK: Trachea midline. CARDIOVASCULAR: Regular rate and rhythm without murmurs, gallops, or rubs. RESPIRATORY: Clear to auscultation. Breath sounds equal bilaterally. No wheezes , rales, or rhonchi. GASTROINTESTINAL: Abdomen soft, non-tender, nondistended. Bowel sounds hypoactive. Pierson catheter in place draining cloudy urine MUSCULOSKELETAL: Extremities without clubbing, cyanosis, or edema. NEUROLOGICAL: Awake and alert. Cranial nerves II through XII intact. Slow speech. Oriented to place, person, time, situation. Bilateral lower extremity movement to noxious stimulus. Bilateral upper extremity with loss of sensation. Gross movement with loss of fine motor movement. Unable to identify joint position bilateral hand/ finger. Laboratory Laboratory Tests Test 10/04/17 13:25 White Blood Count 7.5 Red Blood Count 4.56 Hemoglobin 12.7 Hematocrit 38.8 Mean Corpuscular Volume 85.1 Mean Corpuscular Hemoglobin 27.9 Mean Corpuscular Hemoglobin Concent 32.7 Red Cell Distribution Width 16.2 Platelet Count 179 Mean Platelet Volume 10.0 Neutrophils (%) (Auto) 60.0 Lymphocytes (%) (Auto) 27.4 Monocytes (%) (Auto) 10.3 Eosinophils (%) (Auto) 1.9 Basophils (%) (Auto) 0.4 Neutrophils # (Auto) 4.5 Lymphocytes # (Auto) 2.0 Monocytes # (Auto) 0.8 Eosinophils # (Auto) 0.1 Basophils # (Auto) 0.0 CBC Comment DIFF FINAL Differential Comment Urine Color YELLOW Urine Turbidity CLOUDY Urine pH 5.0 Urine Specific [place] 1.014 Urine Protein 30 Urine Glucose (UA) 300 Urine Ketones NEG Urine Occult Blood MOD Urine Nitrite NEG Urine Bilirubin NEG Urine Urobilinogen LESS THAN 2.0 Urine Leukocyte Esterase LARGE Urine RBC 48 Urine WBC Urine WBC Clumps MOD Urine Squamous Epithelial Cells 2 Urine Calcium Oxalate Crystals RARE Urine Bacteria MOD Urine Hyaline Casts 4 Urine Mucus MOD Microscopic Urinalysis Comment CULTURE INDICATED Blood Urea Nitrogen 8 Creatinine 0.52 Random Glucose 238 Total Protein 7.2 Albumin 3.1 Calcium Level 9.0 Alkaline Phosphatase 74 Aspartate Amino Transf (AST/SGOT) 18 Alanine Aminotransferase (ALT/SGPT) 14 Total Bilirubin 0.6 Sodium Level 139 Potassium Level 3.9 Chloride Level 103 Carbon Dioxide Level 26.6 Anion Gap 9 Estimat Glomerular Filtration Rate 154 Date/Time Source Procedure Growth Status 10/04/17 13:25 Urine Clean Catch Urine Culture Pending Received Result Diagram: 10/04/17 1325 10/04/17 1325 Imaging 10/02/17 Chest x-ray showed no acute pulmonary infiltrate Septic Shock Reassessment Septic shock perfusion: reassessment completed Caprini VTE Risk Assessment Caprini VTE Risk Assessment: Mod/High Risk (score >= 2) Caprini Risk Assessment Model Point Value = 1 Point Value = 2 Point Value = 3 Point Value = 5 Age 41-60 Minor surgery BMI > 25 kg/m2 Swollen legs Varicose veins or History of unexplained or recurrent spontaneous Oral contraceptives or hormone replacement Sepsis (< 1 month) Serious lung disease, including pneumonia (< 1 month) Abnormal pulmonary function Acute myocardial infarction Congestive heart failure (< 1 month) History of inflammatory bowel disease Medical patient at bed rest Age 61-74 Arthroscopic surgery Major open surgery (> 45 min) Laparoscopic surgery (> 45 min) Malignancy Confined to bed (> 72 hours) Immobilizing plaster cast Central venous access Age >= 75 History of VTE Family history of VTE Factor V Leiden Prothrombin [id number] Lupus anticoagulant Anticardiolipin antibodies Elevated serum homocysteine Heparin-induced thrombocytopenia Other congenital or acquired thrombophilia Stroke (< 1 month) Elective arthroplasty Hip, pelvis, or leg fracture Acute spinal cord injury (< 1 month) Prophylaxis Regimen Total Risk Factor Score Risk Level Prophylaxis Regimen 0-1 Low Early ambulation 2 Moderate Order ONE of the following: *Sequential Compression Device (SCD) *Heparin 5000 units SQ BID 3-4 Higher Order ONE of the following medications: *Heparin 5000 units SQ TID *Enoxaparin/Lovenox 40 mg SQ daily (WT < 150 kg, CrCl > 30 mL/min) *Enoxaparin/Lovenox 30 mg SQ daily (WT < 150 kg, CrCl > 10-29 mL/min) *Enoxaparin/Lovenox 30 mg SQ BID (WT < 150 kg, CrCl > 30 mL/min) AND/OR *Sequential Compression Device (SCD) 5 or more Highest Order ONE of the following medications: *Heparin 5000 units SQ TID (Preferred with Epidurals) *Enoxaparin/Lovenox 40 mg SQ daily (WT < 150 kg, CrCl > 30 mL/min) *Enoxaparin/Lovenox 30 mg SQ daily (WT < 150 kg, CrCl > 10-29 mL/min) *Enoxaparin/Lovenox 30 mg SQ BID (WT < 150 kg, CrCl > 30 mL/min) AND *Sequential Compression Device (SCD) Assessment and Plan Problem List: (1) DM type 2 (diabetes mellitus, type 2) ICD Code: E11.9 - Type 2 diabetes mellitus without complications (2) Neuromyelitis optica ICD Code: G36.0 - Neuromyelitis optica [Devic] Assessment and Plan Patient is a 47-year-old -[place]ian female with primary medical history of diabetes and 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 Neuromyelitis optica -Possible exacerbation -Last plasmapheresis done in July. Patient is following Dr. Arnulfo Alston in [facility] previously she was treated with rituximab, plasmapheresis and steroids -Neurology consulted. Appreciate recommendations. -Continue to monitor neurological status -Possible treatment of plasmapheresis, steroids. Will await neuro recommendations -Follow-up labs -PT/OT to eval and treat Urinary tract infection -UA positive, pending culture -Patient was given ceftriaxone in the ED -Pierson catheter to be changed DM 2, fairly controlled, neuropathy complications, insulin use, no acute complication -Continue home dose Levemir 30 units every 12 hours, NovoLog 10 units 3 times daily before meals -Insulin sliding scale -Monitor for hypoglycemia DVT prop heparin subcu This note was transcribed by madelin Ann. I, Dr. Juan Goodman personally performed the history, physical exam, and medical decision making; and confirmed the accuracy of the information in the transcribed note. Authenticated by Dr. Juan Goodman on 10/04/17 at 14:40. Code Status Full code Discussed Condition With Patient, nursing, ED attending Physician Certification 2 Midnight Certification Type: Admission for Inpatient Services Order for Inpatient Services The services are ordered in accordance with Medicare regulations or non- Medicare payer requirements, as applicable. In the case of services not specified as inpatient-only, they are appropriately provided as inpatient services in accordance with the 2-midnight benchmark. Estimated LOS (days): 2 days is the estimated time the patient will need to remain in the hospital, assuming treatment plan goals are met and no additional complications. Post-Hospital Plan: Home Health Ignacio Last October 04, 2017 14:40 Juan Goodman MD October 04, 2017 14:40
[2017-10-04] MEDS: HEPARIN SODIUM - SQ 10,000 UNITS/ML VIAL SQ SCH (15:33)
[2017-10-04 15:35] VITALS: BP 157/87; PULSE 75; RESP 16; O2SAT 100
[2017-10-04] MEDS ORDERED: GADODIAMIDE PF 287 MG/ML 5 ML VIAL (for RAD MRI) IV PUSH ONE (17:27)
--- NOTE | 2017-10-04 17:27 | RADRPT ---
EXAM DATE/TIME: 10/04/2017 15:54 [facility] COMPARISON: MRI THORACIC SPINE W CONTRAST, June 04, 2017, 3:38. INDICATIONS : Neuromyelitis optica. MS. CONTRAST: 23 cc Omniscan (gadodiamide) IV MEDICAL HISTORY : Gastroesophageal reflux disease. Diabetes mellitus type 2. SURGICAL HISTORY : Appendectomy. section. ENCOUNTER: Initial ACUITY: 3 day PAIN SCORE: 0/10 LOCATION: t-spine TECHNIQUE: Multiplanar multisequence MRI of the thoracic spine was performed. FINDINGS: Previous examination demonstrated diffuse abnormal enhancement of the thoracic cord to approximately T7-8 level. On current examination there is no significant abnormal enhancement or abnormal signal in the thoracic cord particularly in the proximal thoracic levels. Previously described potential tiny syrinx is not well-demonstrated on current exam. Overall, there is grossly normal cord signal and nor mal cord position and configuration. No abnormal enhancement. Vertebral body heights are intact with homogeneous marrow signal. Visualized paranasal soft tissues are unremarkable. CONCLUSION: 1. No abnormal enhancement or signal abnormality in the thoracic cord. Apparent interval resolution o f diffusely abnormal thoracic cord enhancement extending to approximately T7-8 level noted on prior e xam. 2. Previously described potential tiny syrinx at T5-6 level not demonstrated on current exam. Alexis Diaz MD on October 04, 2017 at 17:15 Board Certified Radiologist. This report was verified electronically.
--- NOTE | 2017-10-04 17:36 | RADRPT ---
EXAM DATE/TIME: 10/04/2017 15:54 [facility] COMPARISON: MRI BRAIN W & W/O CONTRAST, June 04, 2017, 3:38. INDICATIONS : Neuromyelitis optica. Numbness upper extremities. CONTRAST: 23 cc Omniscan (gadodiamide) IV MEDICAL HISTORY : Diabetes mellitus type 2. Gastroesophageal reflux disease. SURGICAL HISTORY : Appendectomy. section. ENCOUNTER: Initial ACUITY: 3 day PAIN SCORE: 0/10 LOCATION: head TECHNIQUE: Multiplanar, multisequence MRI of the brain was performed both prior to and following the administrat ion of paramagnetic contrast. FINDINGS: CEREBRUM: There is an ill-defined region of increased flair signal and subtle enhancement in the left medial fr ontal paraventricular high convexity subcortical white matter extending to the corpus callosum. There is questionably subtle restricted diffusion in this region. The ventricles are normal for age. No e vidence of midline shift, mass lesion, hemorrhage or acute infarction. No extraaxial fluid collectio ns are seen. The pituitary gland and suprasellar cistern are normal in configuration. WHITE MATTER: Very subtle periventricular white matter T2 prolongation without associated abnormal enhancement or r estricted diffusion. POSTERIOR FOSSA: The cerebellum and brainstem are intact. The 4th ventricle is midline. The cerebellopontine angle is unremarkable. The cerebellar tonsils are normal in position. DIFFUSION IMAGING: No additional focal areas of restricted diffusion are seen. No evidence of acute infarction. EXTRACRANIAL: The visualized portions of the orbits and paranasal sinuses are unremarkable. POST-CONTRAST: No additional abnormal areas of parenchymal or dural enhancement. No evidence of blood-brain barrier breakdown. CONCLUSION: 1. Focal subcortical white matter edema in the left medial frontal paraventricular high convexities e xtending to the corpus callosum. There is associated enhancement of this region with questionably sub tle restricted diffusion. Findings are consistent with active demyelinating process. Alexis Diaz MD on October 04, 2017 at 17:24 Board Certified Radiologist. This report was verified electronically.
--- NOTE | 2017-10-04 17:41 | RADRPT ---
EXAM DATE/TIME: 10/04/2017 15:54 [facility] COMPARISON: MRI LUMBAR SPINE W/O CONTRAST, June 03, 2017, 22:37. INDICATIONS : Neuromyelitis optica. CONTRAST: 23 cc Omniscan (gadodiamide) IV MEDICAL HISTORY : Diabetes mellitus type 2. Gastroesophageal reflux disease. SURGICAL HISTORY : Appendectomy. section. ENCOUNTER: Initial ACUITY: 3 day PAIN SCORE: 0/10 LOCATION: l-spine TECHNIQUE: Multiplanar multisequence MRI of the lumbar spine was performed with and without contrast. FINDINGS: The most caudal appearing lumbar vertebra is numbered as L5. VERTEBRAE: Homogeneous signal. Normal alignment. Redemonstration of left S2 perineural cyst. CONUS: Normal level and configuration. POST CONTRAST: No abnormal areas of contrast enhancement are seen. T12-L1: The thecal sac has a normal diameter. No evidence of disc bulge or protrusion. The neural foramina are patent bilaterally. L1-L2: The thecal sac has a normal diameter. No evidence of disc bulge or protrusion. The neural foramina are patent bilaterally. L2-L3: The thecal sac has a normal diameter. No evidence of disc bulge or protrusion. The neural foramina are patent bilaterally. L3-L4: The thecal sac has a normal diameter. No evidence of disc bulge or protrusion. The neural foramina are patent bilaterally. L4-L5: Small broad-based posterior disc protrusion with mild bilateral facet arthropathy. Mild effacement of the anterior thecal sac. Foramina are patent bilaterally. L5-S1: Diffuse disc bulge with superimposed central posterior disc protrusion. Bilateral facet arthropathy. Mild left neural foraminal narrowing. CONCLUSION: 1. No abnormal distal cord signal or enhancement. 2. Redemonstration of mild degenerative disc disease at L4-5 and L5-S1 with bilateral facet arthropat hy. 3. No significant central canal or neuroforaminal stenosis. Alexis Diaz MD on October 04, 2017 at 17:33 Board Certified Radiologist. This report was verified electronically.
--- NOTE | 2017-10-04 17:45 | RADRPT ---
EXAM DATE/TIME: 10/04/2017 15:54 [facility] COMPARISON: MRI CERVICAL SPINE W/O CONTRAST, June 03, 2017, 22:37. MRI CERVICAL SPINE W CONTRAST, June 04, 2017, 3:38. INDICATIONS : Mulitple sclerosis. Neuromyelitis optica . CONTRAST: 23 cc Omniscan (gadodiamide) IV MEDICAL HISTORY : Diabetes mellitus type 2. Gastroesophageal reflux disease. SURGICAL HISTORY : Appendectomy. section. ENCOUNTER: Initial ACUITY: 3 day PAIN SCORE: 0/10 LOCATION: c-spine TECHNIQUE: Multiplanar, multisequence MRI examination of the cervical spine was performed. FINDINGS: There is now abnormal signal extending to the cervical cranial junction with minimal cord expansion a t the C3-C6 level. This abnormal signal does involve both white and adkins matter tracks. The lowest e xtent of this is mid T1. The cerebellar tonsils are normal in position. Findings intravenous administration of gadolinium there is enhancement from mid C2-C3-C4 suggesting a ctive disease. There is minimal disc bulging at C4-C5 spinal stenosis. There is minimal bulging at C6-C7 without spinal stenosis. CONCLUSION: Substantial progression cephalad Abnormal enhancement suggesting active disease in the high cervical cord.. . Findings have been discussed with Dr. Mandel on today's date. Mario Mckinney MD FACR on October 04, 2017 at 17:33 Board Certified Radiologist. This report was verified electronically.
[2017-10-04 18:05] VITALS: BP 127/70; PULSE 77; RESP 19; TEMP 98; O2SAT 98
--- NOTE | 2017-10-04 18:20 | MB ---
cc: Abraham Blancas MD DATE: 10/04/2017 HISTORY OF PRESENT ILLNESS: The patient is a 47-year-old right-handed woman who I had seen in May for myelopathy with a history of insulin-dependent diabetes, remote vertigo, anemia. She has been very healthy and then in April, she had had some nausea, vomiting, diarrhea, was feeling fine. Then in May, around May 31 or so, she woke up in the middle of the night, felt some tingling from the waist down. The next day, she felt tingling into her feet and then up into her breast region. It seemed to be fairly stable on Wednesday and . She came in with some cramping in her legs. She was able to walk, but progressively weaker. She was found to have significant myelopathy on MRI and subsequently went over to [facility] where they diagnosed her with neuromyelitis optica. They gave her two courses of Rituxan, one in late May, one about 2 weeks after that and they gave her plasma exchange and steroids. She seemed to stabilize, but then in July the numbness went up to her neck or collarbone region and she went back into the hospital with plasma exchange and given steroids again, seemed to stabilize. [place] [facility] and then she had some chest tightness about 09/07/2017, went back to [facility]. They did not think much was wrong with her. She was subsequently discharged on 09/20/2017 home where she has been until this time. Then Wednesday, which was 2 days ago, she woke up and felt that the numbness had gone up to the back of her head and some weakness in her arms, which she had not had before and subsequently came into the hospital today. When I had seen her in May, her pin level was at about T3-T4 in the back bilaterally. She was just seen for chest pain year 2 days ago, was noted to be on glyburide and Levemir. She was subsequently admitted. Troponin was negative. She did not see Cardiology, as far as she knows, at [facility]. She was seen here in the ER today. REVIEW OF SYSTEMS: No hypertension, hypercholesterolemia, OR, stent, angioplasty, AFib, Coumadin, renal, hepatic, pulmonary disease, thyroid disease, lupus, ulcer, cancer, seizure, stroke. SOCIAL HISTORY: Does not smoke or drink and no drugs. Lives by herself usually, but currently living with her sister. FAMILY HISTORY: Negative for cancer, seizure, stroke. ALLERGIES: NO KNOWN DRUG ALLERGIES.. CURRENT MEDICATIONS: Glyburide and Levemir. PHYSICAL EXAMINATION: VITAL SIGNS: Afebrile, 75, 16, 157/87-123/81. NECK: There were no carotid bruits. HEART: Regular rhythm. I do not detect a murmur. HEENT: Pupils are equal. Visual rivera are full. Extraocular movements intact with some fine nystagmus on right lateral gaze, not on the left. Face is symmetric with normal sensation. Tongue was midline. Occipital pinprick was intact, but really to the base of the skull she has numbness right down all the way to the bottoms of her feet. DTRs are absent throughout. There is no ankle clonus. She has some spasms in her legs sometimes where they seem to adduct in by themselves and rotate slightly. That is fairly painful and she has been taking Baclofen for that. In the upper extremities, she had about a 4+/5 in the deltoids, 4+/5 in the triceps, 4/5 in the biceps. Finger extensors left 4-/5, right 4/5. Difficulty gripping also. LABORATORY DATA: This admission, CBC was normal. Last admission her sedimentation rate was 4. Her RPR, herpes, HSV-1 and 2, DNA negative, HTLV 1 negative. Rheumatoid factor, MEÑO was normal. UPEP, IPEP, SPEP were normal. She had an LP with a glucose of 132, a protein of 101. She had a oligoclonal bands, although they were similar to the ones in the serum. Her myelin basic protein was elevated to 7.6, normal less than 4. Her IgG synthesis rate was elevated at 22, normal less than 3. CSF cryptococcal was negative. CSF Lyme was normal. She had 138 white cells, 40 red cells, 56% lymphocytes. Her UA on admission here is positive. Her basic metabolic profile is normal. Glucose is 238. LFTs are normal. Folate, B12, B6, thiamine, thyroid studies and hCG were all negative last admission. CBC is normal now. MRI of the brain last time was normal. MRI of the brain here this time: I just got to look at some of the images and it appears that she has had extension of that abnormality above C3-4 were I thought it was last time to all the way up to the lower medulla region. IMPRESSION: Progressive myelopathy. Diagnosis of neuromyelitis optica. RECOMMENDATIONS: We will give her some steroids, some plasma exchanges, some steroids. Her UTI should be treated. I would consider transferring her back to [facility], see if they have anything else to offer. She is supposed to get some rituximab I believe next week up there. I will be following her with you in the hospital. MD SANJAY Levi/DEEPAK , 05:48 PM , 06:20 PM
[2017-10-04] MEDS: INSULIN ASPART 1,000 UNITS/10 ML VIAL SQ SCH (19:13)
[2017-10-04] MEDS: INSULIN ASPART SUPPLEMENTAL SCALE SQ SCH ×2 (19:13→21:30)
--- NOTE | 2017-10-04 19:30 | PD.CONS ---
History of Present Illness Service Hematology/oncology. Consult Requested By Neurology Reason for Consult Help coordinate plasma exchange therapy Primary Care Physician CRISTIANO Stout Diagnoses: History of Present Illness Chief complaint: 1. Numbness weakness and near paralysis of lower extremities. Since May 2017. 2. Progressive numbness and weakness of the upper extremities and numbness across the anterior chest for the past 2 months. History of presenting illness: Ms. Friedman is a 47-year-old female who reports being in her usual good state of health up until May 2017. At that time she developed progressive weakness and numbness of her lower extremities. 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 She was initiated on plasma exchange therapy and also received rituximab infusions in May and June 2017. The patient reports having had some stabilization of her neurologic deficits at that time. Starting July 2017 she began to notice worsening weakness and numbness of her upper extremities. The numbness progressed involving her anterior chest as well as the posterior aspect of her neck. The patient is essentially bedbound and requires assistance with almost all activities of daily living. She presented to [facility] earlier today with the above-noted symptoms. She was evaluated by Dr. Blancas of neurology and has been recommended initiation of plasma exchange therapy for management of her neurologic deficits. The hematology service is been asked to help coordinate plasma exchange treatments while she is hospitalized. Review of Systems Constitutional: COMPLAINS OF: Fatigue, DENIES: Diaphoretic episodes, Fever, Weight gain, Weight loss, Chills, Dizziness, Change in appetite, Night Sweats Endocrine: DENIES: Abnorml menstrual pattern, Heat/cold intolerance, Polydipsia , Polyuria, Polyphagia Eyes: COMPLAINS OF: Blurred vision, Double Vision, DENIES: Diplopia, Eye inflammation, Eye pain, Vision loss, Photosensitivity Ears, nose, mouth, throat: DENIES: Tinnitus, Hearing loss, Vertigo, Nasal discharge, Oral lesions, Throat pain, Hoarseness, Ear Pain, Running Nose, Epistaxis, Sinus Pain, Toothache, Odynophagia Respiratory: DENIES: Apneas, Cough, Snoring, Wheezing, Hemoptysis, Sputum production, Shortness of breath Cardiovascular: COMPLAINS OF: Lower Extremity Edema, DENIES: Chest pain, Palpitations, Syncope, Dyspnea on Exertion, PND, Orthopnea, Claudication Gastrointestinal: COMPLAINS OF: Diarrhea, DENIES: Abdominal pain, Black stools , Bloody stools, Constipation, Nausea, Vomiting, Difficulty Swallowing, Anorexia Genitourinary: DENIES: Abnormal vaginal bleeding, Dysmenorrhea, Dyspareunia, Sexual dysfunction, Urinary frequency, Urinary incontinence, Urgency, Hematuria , Dysuria, Nocturia, Vaginal discharge Musculoskeletal: COMPLAINS OF: Joint pain, DENIES: Muscle aches, Stiffness, Joint Swelling, Back pain, Neck pain Integumentary: DENIES: Abnormal pigmentation, Pruritus, Rash, Nail changes, Breast masses, Breast skin changes, Nipple discharge Hematologic/lymphatic: DENIES: Bruising, Lymphadenopathy Immunologic/allergic: DENIES: Eczema, Urticaria Neurologic: COMPLAINS OF: Localized weakness, Paresthesias, Poor Balance, DENIES: Abnormal gait, Headache, Seizures, Speech Problems, Tremor Psychiatric: COMPLAINS OF: Depression, DENIES: Anxiety, Confusion, Mood changes , Hallucinations, Agitation, Suicidal Ideation, Homicidal Ideation, Delusions Except as stated in HPI: all other systems reviewed are Neg Past Family Social History Allergies: Coded Allergies: No Known Allergies (Unverified , 06/03/17) Past Medical History Neuromyelitis optica History of iron deficiency anemia Chronic dry eyes Past Surgical History Appendectomy C-sections 3 Vas-Cath placement Active Ordered Medications Current inpatient medications: Ceftriaxone 1 g IV 1 Methylprednisolone 1000 mg IV every 24 hours Tylenol 650 mg p.o. every 4 hours Duo nebs 1 amp every 2 hours needed for shortness of breath or wheezing Heparin 5000 units subcu every 12 hours Insulin aspartate 10 units subcu 3 times daily Insulin Levemir 30 units subcu every 12 hours Magnesium hydroxide 30 mL p.o. every 12 hours needed for constipation NovoLog insulin sliding scale per protocol Metoclopramide 5 mill grams IV every 6 hours needed for nausea and vomiting Family History Parents are both living. Mother: Arthritis Father: Gout. No known oncologic diagnoses in the family, no known neurologic or autoimmune disorders in the family. Social History The patient lives at home with her sister and oldest daughter. The patient is originally from [place], [place]. She moved to the [place] area in April 2017. 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 She is currently disabled. She denies alcohol abuse or tobaccoism. Physical Exam Vital Signs Vital Signs Date Time Temp Pulse Resp B/P (MAP) Pulse Ox O2 Delivery O2 Flow Rate FiO2 10/04/17 18:05 98.0 77 19 127/70 (89) 98 10/04/17 15:46 10/04/17 15:35 75 16 157/87 (110) 100 Room Air 10/04/17 12:10 98.3 83 17 123/81 (95) 100 Physical Exam GENERAL: Young/middle-aged female, sitting up in bed, she appears to be no acute distress, she has a calm demeanor. She is currently having dinner with the assistance of her family member who is feeding her. SKIN: No rashes, ecchymoses or lesions. Cool and dry. She reports numbness of the skin around her clavicular areas as well as her anterior chest. HEAD: Atraumatic. Normocephalic. No temporal or scalp tenderness. EYES: Pupils equal round and reactive. Extraocular motions intact. No scleral icterus. No injection or drainage. ENT: Nose without bleeding, purulent drainage or septal hematoma. Throat without erythema, tonsillar hypertrophy or exudate. Uvula midline. Airway patent. NECK: Trachea midline. No JVD or lymphadenopathy. Supple, nontender, no meningeal signs. CARDIOVASCULAR: Regular rate and rhythm without murmurs, gallops, or rubs. RESPIRATORY: Clear to auscultation. Breath sounds equal bilaterally. No wheezes , rales, or rhonchi. Poor inspiratory effort GASTROINTESTINAL: Abdomen soft, non-tender, nondistended. No hepato-splenomegaly , or palpable masses. No guarding. MUSCULOSKELETAL: Generalized muscle atrophy, she has contractures of the fingers of her right and left hand. NEUROLOGICAL: Awake and alert. Cranial nerves II through XII intact. She has significant muscle weakness/motor weakness of the upper extremities. She has at best 3 / 5 strength of the upper extremities. Motor strength in lower extremities is close to 1 / 5 with minimal movement of the toes and foot at the ankle. She reports numbness of the feet, legs. She reports numbness along the anterior portion of her chest and lower aspect of her neck. Laboratory Laboratory Tests Test 10/04/17 13:25 White Blood Count 7.5 Red Blood Count 4.56 Hemoglobin 12.7 Hematocrit 38.8 Mean Corpuscular Volume 85.1 Mean Corpuscular Hemoglobin 27.9 Mean Corpuscular Hemoglobin Concent 32.7 Red Cell Distribution Width 16.2 Platelet Count 179 Mean Platelet Volume 10.0 Neutrophils (%) (Auto) 60.0 Lymphocytes (%) (Auto) 27.4 Monocytes (%) (Auto) 10.3 Eosinophils (%) (Auto) 1.9 Basophils (%) (Auto) 0.4 Neutrophils # (Auto) 4.5 Lymphocytes # (Auto) 2.0 Monocytes # (Auto) 0.8 Eosinophils # (Auto) 0.1 Basophils # (Auto) 0.0 CBC Comment DIFF FINAL Differential Comment Urine Color YELLOW Urine Turbidity CLOUDY Urine pH 5.0 Urine Specific [place] 1.014 Urine Protein 30 Urine Glucose (UA) 300 Urine Ketones NEG Urine Occult Blood MOD Urine Nitrite NEG Urine Bilirubin NEG Urine Urobilinogen LESS THAN 2.0 Urine Leukocyte Esterase LARGE Urine RBC 48 Urine WBC Urine WBC Clumps MOD Urine Squamous Epithelial Cells 2 Urine Calcium Oxalate Crystals RARE Urine Bacteria MOD Urine Hyaline Casts 4 Urine Mucus MOD Microscopic Urinalysis Comment CULTURE INDICATED Blood Urea Nitrogen 8 Creatinine 0.52 Random Glucose 238 Total Protein 7.2 Albumin 3.1 Calcium Level 9.0 Alkaline Phosphatase 74 Aspartate Amino Transf (AST/SGOT) 18 Alanine Aminotransferase (ALT/SGPT) 14 Total Bilirubin 0.6 Sodium Level 139 Potassium Level 3.9 Chloride Level 103 Carbon Dioxide Level 26.6 Anion Gap 9 Estimat Glomerular Filtration Rate 154 Human Chorionic Gonadotropin, Quant LESS THAN 1 Date/Time Source Procedure Growth Status 10/04/17 13:25 Urine Clean Catch Urine Culture Pending Received Result Diagram: 10/04/17 1325 10/04/17 1325 Imaging MRI of the brain dated 10/04/2017: Conclusion: 1. Focal subcortical white matter edema in the left medial frontal paraventricular high convexities extending to the corpus callosum. There is associated enhancement of this region with questionably subtle restricted diffusion. Findings are consistent with an active demyelinating process. Cervical spine MRI dated 10/04/2017 Conclusion: 1. Abnormal enhancement suggesting active disease in the high cervical cord. MRI of the lumbar spine with and without contrast dated 10/04/2017: No abnormal distal cord signal or enhancement. Redemonstration of mild degenerative disc disease at L4-5 and L5-S1 with bilateral facet atrophy. 3. No significant central canal or neuroforaminal stenosis. MRI of the thoracic spine with and without contrast dated 10/04/2017: Conclusion: 1. No abnormal enhancement or signal abnormality in the thoracic cord. Apparent interval resolution of the diffuse abnormal thoracic cord enhancement extending to approximately T7-8 level noted on prior exam. 2. Previously decreased described potentially tiny Syrinx at T5-6 level not demonstrated on current examination. Assessment and Plan Assessment and Plan 47-year-old female with a diagnosis of neuromyelitis optica, she presents with progressive weakness and numbness of the upper extremities. She has chronic weakness and numbness of the lower extremities bilaterally. Her initial diagnosis was established in May 2017. She was treated at the [facility] in [place] with plasma exchange therapy as well as Rituxan infusions and corticosteroid therapy. She presents the hospital with the above-noted symptoms and approximate 2 month decline in the motor strength and coordination of her upper extremities. The hematology service is been asked to see her to coordinate therapeutic plasma exchange therapy. Plan: 1. Neuromyelitis optica with an acute demyelinating process involving the brain as well as upper spinal cord: Request Vas-Cath placement KOKO. Initiate therapeutic plasma exchange treatments in the morning of 10/05/2017. Hematology service to follow along with you. Appropriate plasma exchange treatment forms will be filled out and signed by our service. Case discussed with Dr. Blancas of neurology. Should he determine the patient requires inpatient treatment with rituximab therapy; hematology/oncology service would be happy to coordinate that as well. Chino Houston MD October 04, 2017 19:30
[2017-10-04] MEDS: methylPREDNISolone SO SUCC INJ 1,000 MG in DEXTROSE 5% IN WATER INJ 250 ML IV SCH ×2 (21:10)
[2017-10-04] MEDS: PANTOPRAZOLE SOD 40 MG DELAYED RELEASE TAB PO SCH (21:29)
[2017-10-04] MEDS: INSULIN DETEMIR 100 UNITS/ML VIAL SQ SCH (21:30)
[2017-10-04] MEDS: SODIUM CHLORIDE 0.9% FLUSH 10 ML FLUSH IV FLUSH SCH (21:31)
[2017-10-05] VITALS (24 sets, daily range): BP systolic 122–194; BP diastolic 59–94; PULSE 70–111; RESP 8–34; TEMP 98.3–98.8; O2SAT 89–100
[2017-10-05] MEDS ORDERED: CHLORHEXIDINE GLUCONATE 2 % 1 PACK (2 CLOTHS)(extra cloths) TOPICAL PRN (00:30)
[2017-10-05] MEDS ORDERED: PANT20 PO (01:07)
[2017-10-05] MEDS ORDERED: GABA300C5 PO (01:07)
[2017-10-05] MEDS ORDERED: BACL10TA PO (01:07)
[2017-10-05] MEDS ORDERED: METO25TA3 PO (01:07)
[2017-10-05] MEDS ORDERED: GABA100C4 PO (01:07)
[2017-10-05] MEDS ORDERED: BACL20TA PO (01:07)
[2017-10-05] MEDS ORDERED: MORPHINE SULFATE 4 MG/ML INJ IV PUSH ONE (01:15)
[2017-10-05] MEDS: HEPARIN SODIUM - SQ 10,000 UNITS/ML VIAL SQ SCH ×2 (03:00→15:00)
[2017-10-05] MEDS ORDERED: CHLORHEXIDINE GLUCONATE 2 % 1 PACK (2 CLOTHS)(taper/protocol) TOPICAL SCH (04:00)
[2017-10-05 05:04] LABS: INTERNATIONAL NORMALIZED RATIO 1.1 RATIO; PROTHROMBIN TIME - PATIENT 10.7 SEC (9.8-11.6)
[2017-10-05 05:07] LABS: AUTOMATED NEUTROPHIL # 5.6 TH/MM3 (1.8-7.7); BASOPHIL % 0.1 % (0.0-2.0); HEMATOCRIT 41.6 % (35.0-46.0); HEMOGLOBIN 13.7 GM/DL (11.6-15.3); LYMPH % 9.8 % (9.0-44.0); LYMPHOCYTE # 0.6 TH/MM3 (1.0-4.8); MEAN CELL VOLUME 83.8 FL (80.0-100.0); MEAN CORPUSCULAR HEMOGLOBIN 27.6 PG (27.0-34.0); MEAN PLATELET VOLUME 9.4 FL (7.0-11.0); MONO % 0.7 % (0.0-8.0); NEUT % 89.4 % (16.0-70.0); PLATELET COUNT 179 TH/MM3 (150-450); RED BLOOD COUNT 4.97 MIL/MM3 (4.00-5.30); RED CELL DISTRIBUTION WIDTH 15.7 % (11.6-17.2); WHITE BLOOD COUNT 6.3 TH/MM3 (4.0-11.0)
[2017-10-05 06:01] LABS: ALBUMIN 3.4 GM/DL (3.4-5.0); BICARBONATE 22.8 MEQ/L (21.0-32.0); BLOOD UREA NITROGEN 8 MG/DL (7-18); CALCIUM 9.5 MG/DL (8.5-10.1); CHLORIDE 103 MEQ/L (98-107); CREATININE 0.46 MG/DL (0.50-1.00); GLOMERULAR FILTRATION RATE 178 ML/MIN (>89); GLUCOSE,RANDOM 257 MG/DL (74-106); SODIUM (NA) 138 MEQ/L (136-145)
[2017-10-05 06:03] LABS: ALT (GPT) 16 U/L (10-53); AST (GOT) 10 U/L (15-37)
[2017-10-05 06:05] LABS: ALKALINE PHOSPHATASE 97 U/L (45-117); TOTAL BILIRUBIN ADULT 0.5 MG/DL (0.2-1.0); TOTAL PROTEIN 7.8 GM/DL (6.4-8.2)
--- NOTE | 2017-10-05 07:51 | HHI.PR ---
Objective Vital Signs Date Time Temp Pulse Resp B/P (MAP) Pulse Ox O2 Delivery O2 Flow Rate FiO2 10/05/17 07:21 100 21 10/05/17 06:00 82 10/05/17 04:00 82 10/05/17 04:00 98.6 82 21 186/88 (120) 99 10/05/17 02:00 77 10/05/17 01:47 20 10/05/17 00:13 72 10/05/17 00:06 98.8 73 20 136/94 (108) 100 10/04/17 18:05 98.0 77 19 127/70 (89) 98 10/04/17 15:46 10/04/17 15:35 75 16 157/87 (110) 100 Room Air 10/04/17 12:10 98.3 83 17 123/81 (95) 100 I/O 10/04/17 10/04/17 10/04/17 10/05/17 10/05/17 10/05/17 07:00 15:00 23:00 07:00 15:00 23:00 Intake Total 100 ml Output Total 200 ml 1250 ml Balance -100 ml -1250 ml Intake IV Total 100 ml Output Urine Total 200 ml 1250 ml # Bowel Movements 1 Result Diagram: 10/05/17 0432 10/05/17 043 Objective Remarks 4/5-4+/5 bue finger ext a little stronger Assessment and Plan Assessment and Plan imp a little stronger after steroids pex shands aquaporin 4 mri brain shows large plaque less likely nmo Abraham Blancas MD October 05, 2017 07:51
[2017-10-05] MEDS: PANTOPRAZOLE SOD 40 MG DELAYED RELEASE TAB PO SCH (08:37)
[2017-10-05] MEDS: INSULIN ASPART SUPPLEMENTAL SCALE SQ SCH ×4 (08:38→20:24)
[2017-10-05] MEDS: INSULIN ASPART 1,000 UNITS/10 ML VIAL SQ SCH ×3 (08:38→17:30)
[2017-10-05] MEDS: INSULIN DETEMIR 100 UNITS/ML VIAL SQ SCH ×2 (08:38→20:17)
[2017-10-05] MEDS: SODIUM CHLORIDE 0.9% FLUSH 10 ML FLUSH IV FLUSH SCH ×2 (08:39→20:11)
[2017-10-05] MEDS ORDERED: hydrALAZINE HCL 20 MG/ML VIAL IV PUSH PRN (09:30)
[2017-10-05] MEDS ORDERED: hydrALAZINE HCL 20 MG/ML VIAL IV PUSH ONE (09:30)
[2017-10-05] MEDS ORDERED: LIDOCAINE 1%/EPINEPHrine 1:100,000 SOLN 20 ML VIAL ONE (09:39)
[2017-10-05] MEDS ORDERED: METOPROLOL TARTRATE 25 MG TAB PO SCH (10:00)
[2017-10-05] MEDS ORDERED: SODIUM CHLORIDE 0.9% FLUSH 10 ML FLUSH IVF PRN (10:45)
--- NOTE | 2017-10-05 10:45 | PD.RAD ---
Post Procedure Progress Note Pre Procedure Diagnosis: (1) Neuromyelitis optica Post Procedure Diagnosis: (1) Neuromyelitis optica Procedure Date: October 05, 2017 Supervising Radiologist: Alexis Diaz Proceduralist/Assist: Charu Buitrago, RT(R)(CV), RT Mary(R) Anesthesia: Local Plan of Activity Patient to Unit: Nursing Unit Patient Condition: Good See PACS Report for procedural detail/treatment Alexis Diaz MD October 05, 2017 10:45
--- NOTE | 2017-10-05 11:19 | RADRPT ---
EXAM DATE/TIME: 10/05/2017 09:52 [facility] COMPARISON: No previous studies available for comparison. INDICATIONS : Patient presents with weakness and numbness in upper extremities in need of vas cath for plasmapheres is. 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 Ultrasound guided venipuncture. 2. Fluoroscopic guidance. 3. Central line placement. The risks, benefits and alternatives to the procedure were explained and verbal and written consent w as obtained. The site was prepped in sterile fashion. Full sterile technique was used, including ca p, mask, sterile gloves and gown and a large sterile sheet. Hand hygiene and 2% chlorhexidine prep w as utilized per protocol for cutaneous antisepsis with appropriate dry time for site. Sterile gel an d sterile probe cover were utilized for ultrasound guidance. The skin and subcutaneous tissues were infiltrated with local anesthetic solution. A suitable site a eloy the vein was selected with ultrasound and fluoroscopic guidance. A small incision was made. Th e vein was accessed under direct ultrasound visualization using the micropuncture technique. The romeo ropuncture set was exchanged for a 0.035 wire. The tract was dilated. The catheter was advanced int o position under direct fluoroscopic visualization. The catheter was fixed in place with suture and a sterile dressing was applied. The patient tolerated the procedure well and there were no complications. CONCLUSION: Uncomplicated line placement as above. Alexis Diaz MD on October 05, 2017 at 11:16 Board Certified Radiologist. This report was verified electronically.
--- NOTE | 2017-10-05 11:58 | HHI.PR ---
Subjective Remarks Discussed case with RN, no major overnight events. Patient with severe elevated blood pressure. Denies chest pain or shortness of breath. The patient still states cannot move her legs and bilateral upper extremities are weak and still has a stiff neck. Patient denies fevers or chills. Objective Vitals Vital Signs Date Time Temp Pulse Resp B/P (MAP) Pulse Ox O2 Delivery O2 Flow Rate FiO2 10/05/17 10:00 111 10/05/17 08:00 80 10/05/17 08:00 98.6 80 26 194/89 (124) 100 10/05/17 07:21 100 21 10/05/17 06:00 82 10/05/17 04:00 82 10/05/17 04:00 98.6 82 21 186/88 (120) 99 10/05/17 02:00 77 10/05/17 01:47 20 10/05/17 00:13 72 10/05/17 00:06 98.8 73 20 136/94 (108) 100 10/04/17 18:05 98.0 77 19 127/70 (89) 98 10/04/17 15:46 10/04/17 15:35 75 16 157/87 (110) 100 Room Air 10/04/17 12:10 98.3 83 17 123/81 (95) 100 I/O 10/04/17 10/04/17 10/04/17 10/05/17 10/05/17 10/05/17 07:00 15:00 23:00 07:00 15:00 23:00 Intake Total 100 ml Output Total 200 ml 1250 ml Balance -100 ml -1250 ml Intake IV Total 100 ml Output Urine Total 200 ml 1250 ml # Bowel Movements 1 Result Diagram: 10/05/17 0432 10/05/17 0432 Imaging Last Impressions Catheter Placement X-Ray 10/05/17 0000 Signed Impressions: Service Date/Time: Thursday, October 05, 2017 09:52 - CONCLUSION: Uncomplicated line placement as above. Alexis Diaz MD Thoracic Spine MRI 10/04/17 0000 Signed Impressions: Service Date/Time: Wednesday, October 04, 2017 15:54 - CONCLUSION: 1. No abnormal enhancement or signal abnormality in the thoracic cord. Apparent interval resolution of diffusely abnormal thoracic cord enhancement extending to approximately T7-8 level noted on prior exam. 2. Previously described potential tiny syrinx at T5-6 level not demonstrated on current exam. Alexis Diaz MD Lumbar Spine MRI 10/04/17 Signed Impressions: Service Date/Time: Wednesday, October 04, 2017 15:54 - CONCLUSION: 1. No abnormal distal cord signal or enhancement. 2. Redemonstration of mild degenerative disc disease at L4-5 and L5-S1 with bilateral facet arthropathy. 3. No significant central canal or neuroforaminal stenosis. Alexis Diaz MD Cervical Spine MRI 10/04/17 0000 Signed Impressions: Service Date/Time: Wednesday, October 04, 2017 15:54 - CONCLUSION: Substantial progression cephalad Abnormal enhancement suggesting active disease in the high cervical cord.. . Findings have been discussed with Dr. Mandel on today's date. Mario Mckinney MD FACR Brain MRI 10/04/17 Signed Impressions: Service Date/Time: Wednesday, October 04, 2017 15:54 - CONCLUSION: 1. Focal subcortical white matter edema in the left medial frontal paraventricular high convexities extending to the corpus callosum. There is associated enhancement of this region with questionably subtle restricted diffusion. Findings are consistent with active demyelinating process. Alexis Diaz MD Objective Remarks GENERAL: This is an obese, well-developed patient, in no apparent distress. SKIN: Cool and dry. HEAD: Normocephalic. EYES: Pupils equal round and reactive. Extraocular motions intact. No scleral icterus. No injection or drainage. ENT: Nose without bleeding. Throat without erythema. Uvula midline. Airway patent. NECK: Trachea midline. CARDIOVASCULAR: Regular rate and rhythm without murmurs, gallops, or rubs. RESPIRATORY: Clear to auscultation. Breath sounds equal bilaterally. No wheezes , rales, or rhonchi. GASTROINTESTINAL: Abdomen soft, non-tender, nondistended. Bowel sounds hypoactive. Pierson catheter in place draining cloudy urine MUSCULOSKELETAL: Extremities without clubbing, cyanosis, or edema. NEUROLOGICAL: Awake and alert. Cranial nerves II through XII intact. Normal speech. Oriented to place, person, time, situation. Bilateral lower extremity movement to noxious stimulus. Bilateral upper extremity with loss of sensation. Gross movement with loss of fine motor movement. Unable to identify joint position bilateral hand/ finger. A/P Problem List: (1) Neuromyelitis optica ICD Code: G36.0 - Neuromyelitis optica [Devic] (2) DM type 2 (diabetes mellitus, type 2) ICD Code: E11.9 - Type 2 diabetes mellitus without complications (3) UTI (urinary tract infection) ICD Code: N39.0 - Urinary tract infection, site not specified Assessment and Plan Patient is a 47-year-old -[place] female with primary medical history of diabetes and 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 Neuromyelitis optica -Neuromyelitis optica with an acute demented and process involving the brain as well as upper spinal cord. Vas-Cath placement today. -Neurology consulted. Appreciate recommendations. -Hematology consulted. Appreciate recommendations. Recommended vascular placement KOKO and to initiate therapeutic plasma exchange treatment this morning. -Continue to monitor neurological status -Continue posterior steroids as per neurology recommendations. -PT/OT to eval and treat Urinary tract infection -UA positive, pending culture -Patient was given ceftriaxone in the ED -Continue IV Rocephin. DM 2, fairly controlled, neuropathy complications, insulin use, no acute complication -Continue home dose Levemir 30 units every 12 hours, NovoLog 10 units 3 times daily before meals -Insulin sliding scale -Monitor for hypoglycemia Uncontrolled hypertension -Patient systolic blood pressure in the 190 systolic. Resume home metoprolol. -Will Rx hydralazine 10 mg IV every 30 minutes as needed for systolic blood pressure more than 160. Muscle spasms -Patient complains of muscle spasms in the upper and lower extremities, likely secondary to neuromyelitis optica. -Resume baclofen. DVT prop heparin subcutaneous. Discharge Planning Continue to monitor in intensive care unit. The patient on high-dose pulse steroids and to undergo plasmapheresis today. Tony Haile MD October 05, 2017 11:58
--- NOTE | 2017-10-05 12:19 | PD.ONC.PN ---
Subjective Subjective Remarks Afebrile overnight. Patient resting in bed in nad. just back from vas-cath placement. continuing to have bilateral upper extremity weakness. Objective Data Date Time Temp Pulse Resp B/P (MAP) Pulse Ox O2 Delivery O2 Flow Rate FiO2 10/05/17 10:00 111 10/05/17 08:00 80 10/05/17 08:00 98.6 80 26 194/89 (124) 100 10/05/17 07:21 100 21 10/05/17 06:00 82 10/05/17 04:00 82 10/05/17 04:00 98.6 82 21 186/88 (120) 99 10/05/17 02:00 77 10/05/17 01:47 20 10/05/17 00:13 72 10/05/17 00:06 98.8 73 20 136/94 (108) 100 10/04/17 18:05 98.0 77 19 127/70 (89) 98 10/04/17 15:46 10/04/17 15:35 75 16 157/87 (110) 100 Room Air 10/05/17 10/05/17 10/05/17 07:00 15:00 23:00 Output Total 1250 ml Balance -1250 ml Result Diagram: 10/05/17 0432 10/05/17 0432 Laboratory Results Laboratory Tests Test 10/04/17 13:25 10/05/17 04:32 10/05/17 11:14 White Blood Count 7.5 TH/MM3 6.3 TH/MM3 Red Blood Count 4.56 MIL/MM3 4.97 MIL/MM3 Hemoglobin 12.7 GM/DL 13.7 GM/DL Hematocrit 38.8 % 41.6 % Mean Corpuscular Volume 85.1 FL 83.8 FL Mean Corpuscular Hemoglobin 27.9 PG 27.6 PG Mean Corpuscular Hemoglobin Concent 32.7 % 33.0 % Red Cell Distribution Width 16.2 % 15.7 % Platelet Count 179 TH/MM3 179 TH/MM3 Mean Platelet Volume 10.0 FL 9.4 FL Neutrophils (%) (Auto) 60.0 % 89.4 % Lymphocytes (%) (Auto) 27.4 % 9.8 % Monocytes (%) (Auto) 10.3 % 0.7 % Eosinophils (%) (Auto) 1.9 % 0.0 % Basophils (%) (Auto) 0.4 % 0.1 % Neutrophils # (Auto) 4.5 TH/MM3 5.6 TH/MM3 Lymphocytes # (Auto) 2.0 TH/MM3 0.6 TH/MM3 Monocytes # (Auto) 0.8 TH/MM3 0.0 TH/MM3 Eosinophils # (Auto) 0.1 TH/MM3 0.0 TH/MM3 Basophils # (Auto) 0.0 TH/MM3 0.0 TH/MM3 CBC Comment DIFF FINAL DIFF FINAL Differential Comment Urine Color YELLOW Urine Turbidity CLOUDY Urine pH 5.0 Urine Specific [place] 1.014 Urine Protein 30 mg/dL Urine Glucose (UA) 300 mg/dL Urine Ketones NEG mg/dL Urine Occult Blood MOD Urine Nitrite NEG Urine Bilirubin NEG Urine Urobilinogen LESS THAN 2.0 MG/DL Urine Leukocyte Esterase LARGE Urine RBC 48 /hpf Urine WBC /hpf Urine WBC Clumps MOD Urine Squamous Epithelial Cells 2 /hpf Urine Calcium Oxalate Crystals RARE /hpf Urine Bacteria MOD /hpf Urine Hyaline Casts 4 /lpf Urine Mucus MOD /lpf Microscopic Urinalysis Comment CULTURE INDICATED Blood Urea Nitrogen 8 MG/DL 8 MG/DL Creatinine 0.52 MG/DL 0.46 MG/DL Random Glucose 238 MG/DL 257 MG/DL Total Protein 7.2 GM/DL 7.8 GM/DL Albumin 3.1 GM/DL 3.4 GM/DL Calcium Level 9.0 MG/DL 9.5 MG/DL Alkaline Phosphatase 74 U/L 97 U/L Aspartate Amino Transf (AST/SGOT) 18 U/L 10 U/L Alanine Aminotransferase (ALT/SGPT) 14 U/L 16 U/L Total Bilirubin 0.6 MG/DL 0.5 MG/DL Sodium Level 139 MEQ/L 138 MEQ/L Potassium Level 3.9 MEQ/L 3.9 MEQ/L Chloride Level 103 MEQ/L 103 MEQ/L Carbon Dioxide Level 26.6 MEQ/L 22.8 MEQ/L Anion Gap 9 MEQ/L 12 MEQ/L Estimat Glomerular Filtration Rate 154 ML/MIN 178 ML/MIN Human Chorionic Gonadotropin, Quant LESS THAN 1 MIU/ML Prothrombin Time 10.7 SEC Prothromb Time International Ratio 1.1 RATIO Activated Partial Thromboplast Time 27.3 SEC Culture Results Microbiology Date/Time Source Procedure Growth Status 10/04/17 13:25 Urine Clean Catch Urine Culture Pending Received Imaging Studies Last 24 hours Impressions Catheter Placement X-Ray 10/05/17 0000 Signed Impressions: Service Date/Time: Thursday, October 05, 2017 09:52 - CONCLUSION: Uncomplicated line placement as above. Alexis Diaz MD Administered Medications Medications (Trade) Dose Ordered Sig/Tara Route PRN Reason Start Time Stop Time Status Last Admin Dose Admin Sodium Chloride (NS Flush) 2 ml BID IV FLUSH 10/04/17 21:00 10/05/17 08:39 Heparin Sodium (Porcine) (Heparin Inj) 5,000 units Q12H SQ 10/04/17 15:00 10/05/17 03:00 Insulin Aspart (NovoLOG SUPPLEMENTAL SCALE) 1 ACHS SLIDING SCALE SQ 10/04/17 17:00 10/05/17 08:38 Insulin Detemir (Levemir Inj) 30 units Q12HR SQ 10/04/17 21:00 10/05/17 08:38 Insulin Aspart (NovoLOG INJ) 10 units TIDAC SQ 10/04/17 17:00 10/05/17 08:38 Methylprednisolone Sodium Succinate 1000 mg/Dextrose 266 ml @ 266 mls/hr Q24H IV 10/04/17 20:00 10/07/17 19:59 10/04/17 21:10 Pantoprazole Sodium (Protonix) 40 mg DAILY PO 10/04/17 21:15 10/05/17 08:37 Chlorhexidine Gluconate (Chlorhexidine 2% Cloth) 3 pack DAILY@04 TOPICAL 10/05/17 04:00 10/09/17 04:01 10/05/17 03:49 Metoprolol Tartrate (Lopressor) 25 mg DAILY PO 10/05/17 10:00 10/05/17 09:46 Objective Remarks GENERAL: Middle aged female, lying in bed resting. SKIN: Warm and dry. vas-cath in place, right neck. HEAD: Normocephalic. EYES: No scleral icterus. No injection or drainage. NECK: Supple, trachea midline. CARDIOVASCULAR: Regular rate and rhythm RESPIRATORY: Breath sounds equal bilaterally. No accessory muscle use. GASTROINTESTINAL: Abdomen soft, non-tender, nondistended. EXTREMITIES: No cyanosis NEUROLOGICAL: awake and alert. normal speech. weakness in bilateral upper extremities. 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 Hematology consulted for plasma exchange. Plan 1. start plasma exchange today. replace one plasma volume with albumin. continue every other day for a total of five treatments. 2. monitor CBC, BMP, coags, fibrinogen d/w Dr. fitzpatrick, patient, patient's family, patient's nurse. Cesilia Duran October 05, 2017 12:19
[2017-10-05] MEDS: BACLOFEN 10 MG TAB PO SCH ×3 (12:44→20:10)
[2017-10-05] MEDS: BACLOFEN 20 MG TAB PO SCH ×3 (12:44→20:10)
[2017-10-05] MEDS ORDERED: diphenhydrAMINE HCL 50 MG/ML VIAL IV PUSH PRN ×2 (13:00→14:00)
[2017-10-05] MEDS ORDERED: HEPARIN SODIUM - 10,000 UNITS/ML 1ML VIAL IV FLUSH PRN (14:00)
[2017-10-05] MEDS ORDERED: SODIUM CHLOR 0.9% 1000 ML IV SCH (14:00)
[2017-10-05] MEDS ORDERED: methylPREDNISolone SOD SUCC 125 MG/2 ML VIAL IV PUSH SCH (14:00)
[2017-10-05] MEDS ORDERED: CALCIUM GLUCONATE 1 GM/NS 150 ML IV SCH ×2 (14:00)
[2017-10-05] MEDS ORDERED: ANTICOAGULANT CITRATE DEXTROSE SOLN-A 1L OTHER SCH (14:00)
[2017-10-05] MEDS ORDERED: ALBUMIN 5% IV SCH (14:00)
[2017-10-05] MEDS ORDERED: HEPARIN SODIUM - 1000 UNITS/ML 10 ML VIAL IV FLUSH PRN (14:00)
[2017-10-05] MEDS ORDERED: SODIUM CHLORIDE 0.9% 10 ML FLUSH IV FLUSH PRN (14:00)
[2017-10-05] MEDS ORDERED: FAMOTIDINE 20 MG/2 ML VIAL IV PUSH SCH (14:00)
[2017-10-05 15:56] LABS: HEMOGLOBIN A1C 7.9 % (4.3-6.0)
[2017-10-05] MEDS: methylPREDNISolone SO SUCC INJ 1,000 MG in DEXTROSE 5% IN WATER INJ 250 ML IV SCH ×2 (20:10)
[2017-10-06] MEDS ORDERED: SODIUM CHLORIDE 0.9% FLUSH 10 ML FLUSH IVF SCH (09:00)
== END 2017-10-05 21:15 | disposition short-term general hospital (02) | DRG 59 ==
LOC: NEPC 11:58 → NEDA 14:18 → N05B 17:49 → HIMN 23:55
PROVIDERS: ADMIT Family Medicine; ATTEND Family Medicine
PROC: 0T9B70Z Drainage of Bladder with Drainage Device, Via Natural or Artificial Opening (ICD-10-PCS; principal; 2017-10-04)
PROC: 05HN33Z Insertion of Infusion Device into Left Internal Jugular Vein, Percutaneous Approach (ICD-10-PCS; 2017-10-05)
DX: G36.0 Neuromyelitis optica [Devic] (principal); N30.00 Acute cystitis without hematuria; E11.40 Type 2 diabetes mellitus with diabetic neuropathy, unspecified; F03.90 Unspecified dementia, unspecified severity, without behavioral disturbance, psychotic disturbance, mood disturbance, and anxiety; I10 Essential (primary) hypertension; K21.9 Gastro-esophageal reflux disease without esophagitis; M17.12 Unilateral primary osteoarthritis, left knee; Z87.440 Personal history of urinary (tract) infections; Z82.49 Family history of ischemic heart disease and other diseases of the circulatory system; Z79.4 Long term (current) use of insulin; Z83.3 Family history of diabetes mellitus; R20.0 Anesthesia of skin; R07.89 Other chest pain; M62.838 Other muscle spasm; Z74.01 Bed confinement status; H04.123 Dry eye syndrome of bilateral lacrimal glands; M51.36 Other intervertebral disc degeneration, lumbar region
CPT/HCPCS: 36514; 70553; 71045; 72156; 72157; 72158; 80048; 80053; 81001; 82164; 82948; 83036; 83735; 84484; 84702; 85025; 85610; 85730; 87086; 93005; 96374; A9579; C1752; J0610; J0696; J1200; J1644; J1815; J2270; J2930; J7050; J7060; P9045

== ENCOUNTER 2017-11-09 20:58 | Inpatient (IN) ==
[2017-11-21] MEDS ORDERED: Naloxone Inj 0.4 MG/ML Vial IV.PUSH PRN (00:01)
[2017-11-21] MEDS ORDERED: Docusate Sodium 100 MG Capsule PO PRN (00:01)
[2017-11-21] MEDS ORDERED: Dextrose 50% in Water 50 ML Vial IV.PUSH PRN (00:01)
[2017-11-21] MEDS: Gabapentin 100 MG Capsule PO SCH ×2 (10:05→22:19)
[2017-11-21] MEDS: predniSONE 10 MG Tablet PO SCH (10:06)
[2017-11-21] MEDS: Ascorbic Acid 500 MG Tablet PO SCH (10:06)
[2017-11-21] MEDS: Baclofen 10 MG Tablet PO SCH ×4 (10:06→22:19)
[2017-11-21] MEDS: Insulin NovoLOG Aspart Correctional Sugar Inj SQ SCH ×4 (10:09→22:21)
[2017-11-21] MEDS: Calcium Acetate 667 MG Capsule PO SCH ×3 (10:16→18:21)
[2017-11-21] MEDS: Calcium/Vitamin D 250/125 MG Tablet PO SCH (10:16)
[2017-11-21] MEDS: diazePAM 5 MG Tablet PO PRN (13:20)
--- NOTE | 2017-11-21 13:43 | P.DS ---
DS: Providers Date of admission: 11/09/17 20:58 Primary care physician: Suzette Mccarthy DS: Summary - Time Spent with Patient Total time spent providing and/or coordinating discharge services: Exam Vital signs: Vital Signs 11/21/17 05:00 11/21/17 08:00 Temperature 98 F 97.9 F Pulse Rate 84 84 Respiratory Rate 16 18 Blood Pressure 122/61 113/56 L Pulse Oximetry 99 99 Intake & Output 11/20/17 11/21/17 11/21/17 18:59 06:59 18:59 Intake Total 900 / 900 Output Total 1999 Balance -1100 / -1100 Weight 112 kg 112 kg Intake: Oral 900 / 900 Output: Urine 1999 Other: # Bowel Movements 0 Results Labs on day of discharge: Labs from last 24 hours 11/21/17 11/21/17 11/20/17 12:28 09:34 12:08 WBC RBC Hgb Hct MCV MCH MCHC RDW Plt Count MPV Neut % (Auto) Lymph % (Auto) [place] % (Auto) Eos % (Auto) Baso % (Auto) Neut # (Auto) Lymph # (Auto) [place] # (Auto) Eos # (Auto) Baso # (Auto) CBC Comment Sodium 136 Potassium 4.3 Chloride 100 Carbon Dioxide 27.8 Anion Gap 8 BUN 13 Creatinine 0.69 Estimated GFR 111 POC Glucose 298 H 176 H Random Glucose 298 H Calcium 9.1 11/19/17 06:03 WBC 8.5 RBC 4.20 Hgb 11.5 L Hct 35.2 MCV 83.8 MCH 27.4 MCHC 32.7 RDW 16.9 Plt Count 253 MPV 8.9 Neut % (Auto) 57.4 Lymph % (Auto) 31.8 [place] % (Auto) 9.4 H Eos % (Auto) 0.9 Baso % (Auto) 0.5 Neut # (Auto) 4.9 Lymph # (Auto) 2.7 [place] # (Auto) 0.8 Eos # (Auto) 0.1 Baso # (Auto) 0.0 CBC Comment DIFF FINAL Sodium Potassium Chloride Carbon Dioxide Anion Gap BUN Creatinine Estimated GFR POC Glucose Random Glucose Calcium Discharge Plan - Physicians Team Primary Care Provider: Suzette Mccarthy Attending Provider: Douglas Savage Other Providers: Ebony Conrad MD ; Karrie Estrella MD ; Amos Velasco DO - Rxs /Orders / Referrals /Forms Prescriptions: No Action acetaminophen [Tylenol] 325 mg Tablet 650 mg PO Q4H PRN (Reason: MILD PAIN) apixaban [Eliquis] 5 mg Tablet 10 mg PO BID ascorbic acid (vitamin C) 250 mg Tablet 250 mg PO DAILY baclofen 10 mg Tablet 30 mg PO QID baclofen 20 mg Tablet 20 mg PO QID baclofen 10 mg Tablet 10 mg PO QID calcium acetate 667 mg Capsule 667 mg PO TID calcium carbonate-vitamin D3 [Os-Karson 500 + D3] 500 mg(1,250mg) -200 unit Tablet 1 tab PO DAILY cholecalciferol (vitamin D3) 1,000 unit Tablet 1,000 units PO DAILY NEB cholecalciferol (vitamin D3) 1,000 unit Tablet 400 units PO DAILY diazepam 5 mg Tablet 5 mg PO Q8H PRN (Reason: Muscle Spasm) diphenhydramine HCl 12.5 mg/5 mL Elixir 25 mg PO Q6H PRN (Reason: ITCHING ) diphenhydramine-zinc acetate 2-0.1 % Cream 1 applic TOPICAL TID PRN (Reason: ITCHING AND/OR RASH) docusate sodium 100 mg Capsule 100 mg PO DAILY PRN (Reason: Constipation) gabapentin 300 mg Capsule 300 mg PO HS gabapentin 100 mg Capsule 200 mg PO BID glyburide 5 mg Tablet 5 mg PO BID insulin detemir U-100 [Levemir U-100 Insulin] 100 unit/mL Solution 30 unit SUB-Q Q24H insulin regular human [Novolin R Regular U-100 Insuln] 100 unit/mL Solution 1 unit SUB-Q DIRECTED insulin regular human [Novolin R Regular U-100 Insuln] 100 unit/mL Solution 13 unit SUB-Q TIDAC metoprolol succinate 25 mg Tablet Extended Release 24 Hr 25 mg PO DAILY mycophenolate mofetil [CellCept] 500 mg Tablet 500 mg PO BID nortriptyline 10 mg Capsule 10 mg PO HS oxycodone 10 mg Tablet 5 mg PO Q4H PRN (Reason: PAIN SCALE 6-10) pantoprazole [Protonix] 20 mg Tablet,Delayed Release (Dr/Ec) 20 mg PO DAILY pantoprazole [Protonix] 40 mg Tablet,Delayed Release (Dr/Ec) 40 mg PO DAILY potassium chloride 10 mEq Capsule, Extended Release 30 meq PO DAILY pravastatin 40 mg Tablet 40 mg PO HS prednisone 20 mg Tablet 30 mg PO DAILY propylene glycol-glycerin 1-0.3 % Drops 1 - 2 drop ophthalmic (eye) PRN sennosides 8.6 mg Tablet 8.6 mg PO HS sulfamethoxazole-trimethoprim 400-80 mg Tablet 1 tab PO DIRECTED Referrals: Suzette Mccarthy, CRISTIANO [Primary Care Provider] - See Instructions
--- NOTE | 2017-11-21 15:24 | P.PN ---
Subjective Interval history: Resting comfortably in bed No acute issue overnight Denied chest and or short of breath No fever or chills Physical Exam Vital signs: Vital Signs 11/21/17 05:00 11/21/17 08:00 11/21/17 12:00 Temperature 98 F 97.9 F 98.2 F Pulse Rate 84 84 96 H Respiratory Rate 16 18 18 Blood Pressure 122/61 113/56 L 108/63 Pulse Oximetry 99 99 100 Intake & Output 11/20/17 11/21/17 11/21/17 18:59 06:59 18:59 Intake Total 900 / 900 Output Total 1999 Balance -1100 / -1100 Weight 112 kg 112 kg Intake: Oral 900 / 900 Output: Urine 1999 Other: Date of Last Bowel Movement 11/21/17 # Bowel Movements 0 1 Narrative: GENERAL: This is a well-nourished, well-developed patient, in no apparent distress. CARDIOVASCULAR: RRR, no gallops, or rubs. RESPIRATORY: Fair air entry bilaterally. No W, R, or R GASTROINTESTINAL: Abdomen soft, non-tender, nondistended. Positive bowel sounds MUSCULOSKELETAL: Extremities without clubbing, cyanosis, or edema. Pedal pulses appreciated NEUROLOGICAL: Awake and alert. Unable to move lower extreme normal speech.no focal neurological deficit Results - Labs CBC & Chem 7: 11/19/17 06:03 11/20/17 12:08 Laboratory Results - last 24 hr 11/19/17 11/20/17 11/21/17 06:03 12:08 09:34 WBC 8.5 RBC 4.20 Hgb 11.5 L Hct 35.2 MCV 83.8 MCH 27.4 MCHC 32.7 RDW 16.9 Plt Count 253 MPV 8.9 Neut % (Auto) 57.4 Lymph % (Auto) 31.8 [place] % (Auto) 9.4 H Eos % (Auto) 0.9 Baso % (Auto) 0.5 Neut # (Auto) 4.9 Lymph # (Auto) 2.7 [place] # (Auto) 0.8 Eos # (Auto) 0.1 Baso # (Auto) 0.0 CBC Comment DIFF FINAL Sodium 136 Potassium 4.3 Chloride 100 Carbon Dioxide 27.8 Anion Gap 8 BUN 13 Creatinine 0.69 Estimated GFR 111 POC Glucose 176 H Random Glucose 298 H Calcium 9.1 11/21/17 12:28 WBC RBC Hgb Hct MCV MCH MCHC RDW Plt Count MPV Neut % (Auto) Lymph % (Auto) [place] % (Auto) Eos % (Auto) Baso % (Auto) Neut # (Auto) Lymph # (Auto) [place] # (Auto) Eos # (Auto) Baso # (Auto) CBC Comment Sodium Potassium Chloride Carbon Dioxide Anion Gap BUN Creatinine Estimated GFR POC Glucose 298 H Random Glucose Calcium Assessment and Plan - Plan 11/18: DC baclofen, continue monitoring urine clarity, 11/19: Resume Eliquis today, continue CellCept and prednisone, PT OT, awaiting placement 11/20: cont current care , PT , resume baclofen for muscle spasm , Eliquis resumed monitor for any hematuria 11/21: Continue current care with effort for placement A/P: - Neuromyelitis optica, transverse myelitis, paraplegia: Returned from [facility] following a one-month stay there. Continue prednisone, CellCept. Bactrim Wednesday/Wednesday/Wednesday prophylactically. Appreciate neurology, hematology recommendations. Continue physical therapy, Occupational Therapy. Currently awaiting placement - Diabetes mellitus, insulin-dependent: Blood sugar better controlled with new Levemir nightly, prandial NovoLog. Monitor Accu-Cheks and cover with sliding scale insulin. - Hypertension, chronic essential: Continue metoprolol. - Anemia: H&H are stable and no further hematuria . - Pulmonary embolus: Eliquis has been stopped due to bleeding around suprapubic site , Eliquis resumed - Urinary retention: Suprapubic catheter in place. Appreciate urology recommendations. Suprapubic catheter exchange and upsizing 11/14 7. - Hematuria with clots around suprapubic site -now resolved, reconsult to Dr. Velasco urology, Eliquis resumed, - DVT prophylaxis Eliquis Discharge Planning Awaiting placement
[2017-11-21] MEDS ORDERED: Insulin Detemir Inj 1,000 UNIT/10 ML Vial SQ SCH (21:00)
[2017-11-21] MEDS: Nortriptyline 10 MG Capsule PO SCH (22:18)
[2017-11-21] MEDS: Gabapentin 300 MG Capsule PO SCH (22:19)
[2017-11-22] MEDS: diazePAM 5 MG Tablet PO PRN (06:18)
[2017-11-22] MEDS: Insulin NovoLOG Aspart Correctional Sugar Inj SQ SCH ×4 (09:23→23:14)
[2017-11-22] MEDS: Ascorbic Acid 500 MG Tablet PO SCH (09:24)
[2017-11-22] MEDS: Calcium Acetate 667 MG Capsule PO SCH ×3 (09:25→18:11)
[2017-11-22] MEDS: Sulfamethoxazole/Trimethoprim 400/80 MG Tablet PO SCH (09:25)
[2017-11-22] MEDS: Gabapentin 100 MG Capsule PO SCH ×2 (09:25→22:00)
[2017-11-22] MEDS: Baclofen 10 MG Tablet PO SCH ×4 (09:25→23:09)
[2017-11-22] MEDS: predniSONE 10 MG Tablet PO SCH (09:26)
[2017-11-22] MEDS: Calcium/Vitamin D 250/125 MG Tablet PO SCH (09:28)
--- NOTE | 2017-11-22 14:17 | P.PNIM ---
Subjective Interval history: Resting comfortably in bed No fever no acute issue, Plan: To discharge but awaiting on accepting facility Physical Exam Vital signs: Vital Signs 11/21/17 16:00 11/21/17 20:00 11/21/17 20:30 Temperature 98.8 F 98.8 F Pulse Rate 83 95 H Respiratory Rate 18 18 16 Blood Pressure 117/70 120/87 Pulse Oximetry 100 100 11/22/17 00:30 11/22/17 06:34 11/22/17 08:53 Temperature 97.9 F 98.8 F 98.6 F Pulse Rate 80 88 83 Respiratory Rate 18 16 20 Blood Pressure 115/80 140/78 125/59 L Pulse Oximetry 99 100 99 11/22/17 12:30 Temperature 97.9 F Pulse Rate 90 Respiratory Rate 20 Blood Pressure 96/61 L Pulse Oximetry 100 Intake & Output 11/21/17 11/22/17 11/22/17 18:59 06:59 18:59 Intake Total 4200 / 4200 Output Total 900 / 900 4450 / 4450 Balance -900 / -900 -250 / -250 Weight 112.5 kg Intake: Oral 4200 / 4200 Output: Urine 900 / 900 4450 / 4450 Other: Date of Last Bowel Movement 11/21/17 11/21/17 # Bowel Movements 1 0 Narrative: CARDIOVASCULAR: RRR, no gallops, or rubs. RESPIRATORY: Fair air entry bilaterally. No W, R, or R GASTROINTESTINAL: Abdomen soft, non-tender, nondistended. Positive bowel sounds MUSCULOSKELETAL: Extremities without clubbing, cyanosis, or edema. Pedal pulses appreciated NEUROLOGICAL: Awake and alert. Unable to move lower extreme normal speech.no focal neurological deficit Results - Labs CBC & Chem 7: 11/19/17 06:03 11/20/17 12:08 Laboratory Results - last 24 hr 11/21/17 11/21/17 11/22/17 18:25 20:51 07:42 POC Glucose 256 H 285 H 167 H 11/22/17 11:37 POC Glucose 268 H Assessment and Plan - Plan 11/18: DC baclofen, continue monitoring urine clarity, 11/19: Resume Eliquis today, continue CellCept and prednisone, PT OT, awaiting placement 11/20: cont current care , PT , resume baclofen for muscle spasm , Eliquis resumed monitor for any hematuria 11/21: Continue current care with effort for placement 11/22: Continue current care until getting acceptance from the SNF patient medically stable to be discharged A/P: - Neuromyelitis optica, transverse myelitis, paraplegia: Returned from [facility] following a one-month stay there. Continue prednisone, CellCept. Bactrim Wednesday/Wednesday/Wednesday prophylactically. Appreciate neurology, hematology recommendations. Continue physical therapy, Occupational Therapy. Currently awaiting placement - Diabetes mellitus, insulin-dependent: Blood sugar better controlled with new Levemir nightly, prandial NovoLog. Monitor Accu-Cheks and cover with sliding scale insulin. - Hypertension, chronic essential: Continue metoprolol. - Anemia: H&H are stable and no further hematuria . - Pulmonary embolus: Eliquis has been stopped due to bleeding around suprapubic site , Eliquis resumed - Urinary retention: Suprapubic catheter in place. Appreciate urology recommendations. Suprapubic catheter exchange and upsizing 11/14 7. - Hematuria with clots around suprapubic site -now resolved, reconsult to Dr. Velasco urology, Eliquis resumed, - DVT prophylaxis Eliquis Discharge Planning Awaiting placement
[2017-11-22] MEDS: Insulin Detemir Inj 1,000 UNIT/10 ML Vial SQ SCH (23:11)
[2017-11-22] MEDS: Gabapentin 300 MG Capsule PO SCH (23:11)
[2017-11-22] MEDS: Nortriptyline 10 MG Capsule PO SCH (23:12)
[2017-11-23] MEDS: Insulin NovoLOG Aspart Correctional Sugar Inj SQ SCH ×4 (07:50→23:36)
[2017-11-23] MEDS: predniSONE 10 MG Tablet PO SCH (09:13)
[2017-11-23] MEDS: Calcium/Vitamin D 250/125 MG Tablet PO SCH (09:14)
[2017-11-23] MEDS: Ascorbic Acid 500 MG Tablet PO SCH (09:15)
[2017-11-23] MEDS: Gabapentin 100 MG Capsule PO SCH ×2 (09:15→23:35)
[2017-11-23] MEDS: Calcium Acetate 667 MG Capsule PO SCH ×3 (09:15→18:05)
[2017-11-23] MEDS: Baclofen 10 MG Tablet PO SCH ×4 (09:16→23:58)
[2017-11-23] MEDS ORDERED: Insulin Detemir Inj 1,000 UNIT/10 ML Vial SQ SCH (09:40)
--- NOTE | 2017-11-23 12:22 | P.PNIM ---
Subjective Interval history: Resting comfortably in bed No event overnight Denied chest and or short of breath No fever or chills Physical Exam Vital signs: Vital Signs 11/22/17 12:30 11/22/17 16:00 11/22/17 20:00 Temperature 97.9 F 99.0 F 98.4 F Pulse Rate 90 91 H 90 Respiratory Rate 20 20 18 Blood Pressure 96/61 L 107/62 122/88 Pulse Oximetry 100 99 100 11/23/17 00:00 11/23/17 04:00 11/23/17 08:00 Temperature 97.9 F 97.6 F 97.8 F Pulse Rate 69 81 Respiratory Rate 18 18 16 Blood Pressure 129/71 125/79 117/64 Pulse Oximetry 100 100 100 Intake & Output 11/22/17 11/23/17 11/23/17 18:59 06:59 18:59 Intake Total 220 / 220 Output Total 1400 / 1400 801 / 801 Balance -1400 / -1400 -581 / -581 Weight 115.71 kg Intake: Oral 220 / 220 Output: Urine 1400 / 1400 800 / 800 Stool Other: Date of Last Bowel Movement 11/22/17 # Bowel Movements 1 Narrative: CARDIOVASCULAR: RRR, no gallops, or rubs. RESPIRATORY: Fair air entry bilaterally. No W, R, or R GASTROINTESTINAL: Abdomen soft, non-tender, nondistended. Positive bowel sounds MUSCULOSKELETAL: Extremities without clubbing, cyanosis, or edema. Pedal pulses appreciated NEUROLOGICAL: Awake and alert. Unable to move lower extreme normal speech.no focal neurological deficit - Urinary Catheter Management Suprapubic Cath placed during this visit: no Reason for continuing: Other continuation reason Results - Labs CBC & Chem 7: 11/19/17 06:03 11/20/17 12:08 Laboratory Results - last 24 hr 11/22/17 11/22/17 11/23/17 17:31 21:48 07:41 POC Glucose 363 H 310 H 148 H Assessment and Plan - Plan 11/18: DC baclofen, continue monitoring urine clarity, 11/19: Resume Eliquis today, continue CellCept and prednisone, PT OT, awaiting placement 11/20: cont current care , PT , resume baclofen for muscle spasm , Eliquis resumed monitor for any hematuria 11/21: Continue current care with effort for placement 11/22: Continue current care until getting acceptance from the SNF patient medically stable to be discharged 11/23: Ongoing placement effort A/P: - Neuromyelitis optica, transverse myelitis, paraplegia: Returned from [facility] following a one-month stay there. Continue prednisone, CellCept. Bactrim Wednesday/Wednesday/Wednesday prophylactically. Appreciate neurology, hematology recommendations. Continue physical therapy, Occupational Therapy. Currently awaiting placement - Diabetes mellitus, insulin-dependent: Blood sugar better controlled with new Levemir nightly, prandial NovoLog. Monitor Accu-Cheks and cover with sliding scale insulin. - Hypertension, chronic essential: Continue metoprolol. - Anemia: H&H are stable and no further hematuria . - Pulmonary embolus: Eliquis has been stopped due to bleeding around suprapubic site , Eliquis resumed - Urinary retention: Suprapubic catheter in place. Appreciate urology recommendations. Suprapubic catheter exchange and upsizing 11/14 7. - Hematuria with clots around suprapubic site -now resolved, reconsult to Dr. Velasco urology, Eliquis resumed, - DVT prophylaxis Eliquis Discharge Planning Awaiting placement
[2017-11-23] MEDS: Nortriptyline 10 MG Capsule PO SCH (23:35)
[2017-11-23] MEDS: Gabapentin 300 MG Capsule PO SCH (23:35)
[2017-11-23] MEDS: Insulin Detemir Inj 1,000 UNIT/10 ML Vial SQ SCH (23:36)
[2017-11-23] MEDS: diazePAM 5 MG Tablet PO PRN (23:46)
[2017-11-24] MEDS: predniSONE 10 MG Tablet PO SCH (09:09)
[2017-11-24] MEDS: Calcium/Vitamin D 250/125 MG Tablet PO SCH (09:09)
[2017-11-24] MEDS: Ascorbic Acid 500 MG Tablet PO SCH (09:10)
[2017-11-24] MEDS: Gabapentin 100 MG Capsule PO SCH ×2 (09:10→21:55)
[2017-11-24] MEDS: Baclofen 10 MG Tablet PO SCH ×4 (09:10→21:54)
[2017-11-24] MEDS: Insulin Detemir Inj 1,000 UNIT/10 ML Vial SQ SCH ×2 (09:11→21:55)
[2017-11-24] MEDS: Calcium Acetate 667 MG Capsule PO SCH ×3 (09:11→17:36)
[2017-11-24] MEDS: Sulfamethoxazole/Trimethoprim 400/80 MG Tablet PO SCH (09:11)
[2017-11-24] MEDS: Insulin NovoLOG Aspart Correctional Sugar Inj SQ SCH ×4 (09:12→22:04)
--- NOTE | 2017-11-24 14:11 | P.PNIM ---
Subjective Interval history: Sitting on the chair eating her lunch night any complain Physical Exam Vital signs: Vital Signs 11/23/17 20:00 11/24/17 00:00 11/24/17 04:00 Temperature 98.4 F 98.3 F 98.1 F Pulse Rate 91 H 75 73 Respiratory Rate 18 18 18 Blood Pressure 118/64 119/74 Pulse Oximetry 100 98 98 11/24/17 07:48 11/24/17 12:00 Temperature 97.8 F 98.2 F Pulse Rate 79 80 Respiratory Rate 16 20 Blood Pressure 117/71 116/66 Pulse Oximetry 100 Intake & Output 11/23/17 11/24/17 11/24/17 18:59 06:59 18:59 Output Total 1300 / 1300 250 / 250 Balance -1300 / -1300 -250 / -250 Weight 114 kg Output: Urine 1300 / 1300 250 / 250 Other: Date of Last Bowel Movement 11/23/17 11/23/17 11/23/17 Narrative: CARDIOVASCULAR: RRR, no gallops, or rubs. RESPIRATORY: Fair air entry bilaterally. No W, R, or R GASTROINTESTINAL: Abdomen soft, non-tender, nondistended. Positive bowel sounds MUSCULOSKELETAL: Extremities without clubbing, cyanosis, or edema. Pedal pulses appreciated NEUROLOGICAL: Awake and alert. Unable to move lower extreme normal speech.no focal neurological deficit - Urinary Catheter Management Suprapubic Cath placed during this visit: no Reason for continuing: Other continuation reason Results - Labs CBC & Chem 7: 11/19/17 06:03 11/20/17 12:08 Laboratory Results - last 24 hr 11/23/17 11/23/17 11/24/17 16:53 20:47 06:39 POC Glucose 339 H 244 H 192 H 11/24/17 11/24/17 07:13 11:21 POC Glucose 173 H 287 H Assessment and Plan - Plan 11/18: DC baclofen, continue monitoring urine clarity, 11/19: Resume Eliquis today, continue CellCept and prednisone, PT OT, awaiting placement 11/20: cont current care , PT , resume baclofen for muscle spasm , Eliquis resumed monitor for any hematuria 11/21: Continue current care with effort for placement 11/22: Continue current care until getting acceptance from the SNF patient medically stable to be discharged 11/23: Ongoing placement effort 11/24: Still awaiting placement in rehab in [place] A/P: - Neuromyelitis optica, transverse myelitis, paraplegia: Returned from [facility] following a one-month stay there. Continue prednisone, CellCept. Bactrim Wednesday/Wednesday/Wednesday prophylactically. Appreciate neurology, hematology recommendations. Continue physical therapy, Occupational Therapy. Currently awaiting placement - Diabetes mellitus, insulin-dependent: Blood sugar better controlled with new Levemir nightly, prandial NovoLog. Monitor Accu-Cheks and cover with sliding scale insulin. - Hypertension, chronic essential: Continue metoprolol. - Anemia: H&H are stable and no further hematuria . - Pulmonary embolus: Eliquis has been stopped due to bleeding around suprapubic site , Eliquis resumed - Urinary retention: Suprapubic catheter in place. Appreciate urology recommendations. Suprapubic catheter exchange and upsizing 11/14 7. - Hematuria with clots around suprapubic site -now resolved, reconsult to Dr. Velasco urology, Eliquis resumed, - DVT prophylaxis Eliquis Discharge Planning Awaiting placement
[2017-11-24 14:24] LABS: Hematocrit 39.4 % (35.0-46.0); Hemoglobin 12.9 gm/dL (11.6-15.3)
[2017-11-24] MEDS: Nortriptyline 10 MG Capsule PO SCH (21:54)
[2017-11-24] MEDS: Gabapentin 300 MG Capsule PO SCH (21:55)
[2017-11-25] MEDS: Insulin Detemir Inj 1,000 UNIT/10 ML Vial SQ SCH ×2 (06:49→22:13)
[2017-11-25] MEDS: Insulin NovoLOG Aspart Correctional Sugar Inj SQ SCH ×4 (09:02→22:16)
[2017-11-25] MEDS: Ascorbic Acid 500 MG Tablet PO SCH (09:03)
[2017-11-25] MEDS: predniSONE 10 MG Tablet PO SCH (09:06)
[2017-11-25] MEDS: Calcium/Vitamin D 250/125 MG Tablet PO SCH (09:07)
[2017-11-25] MEDS: Baclofen 10 MG Tablet PO SCH ×4 (09:08→22:11)
[2017-11-25] MEDS: Gabapentin 100 MG Capsule PO SCH ×2 (09:08→22:11)
[2017-11-25] MEDS: Calcium Acetate 667 MG Capsule PO SCH ×3 (09:09→18:16)
--- NOTE | 2017-11-25 13:39 | P.PNIM ---
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 Exam Vital signs: Vital Signs 11/24/17 16:00 11/24/17 20:00 11/25/17 00:00 Temperature 98.1 F 97.6 F 97.9 F Pulse Rate 87 85 88 Respiratory Rate 20 16 16 Blood Pressure 105/59 L 119/70 106/64 Pulse Oximetry 100 100 100 11/25/17 04:00 11/25/17 08:39 11/25/17 12:14 Temperature 98.1 F 97.8 F 97.9 F Pulse Rate 75 75 85 Respiratory Rate 16 18 18 Blood Pressure 107/59 L 98/55 L 116/55 L Pulse Oximetry 99 100 100 Intake & Output 11/24/17 11/25/17 11/25/17 18:59 06:59 18:59 Output Total 1900 / 1900 700 / 700 Balance -1900 / -1900 -700 / -700 Weight 110.8 kg Output: Urine 1900 / 1900 700 / 700 Other: Date of Last Bowel Movement 11/23/17 11/24/17 # Bowel Movements 1 Narrative: CARDIOVASCULAR: RRR, no gallops, or rubs. RESPIRATORY: Fair air entry bilaterally. No W, R, or R GASTROINTESTINAL: Abdomen soft, non-tender, nondistended. Positive bowel sounds MUSCULOSKELETAL: Extremities without clubbing, cyanosis, or edema. Pedal pulses appreciated NEUROLOGICAL: Awake and alert. Unable to move lower extreme normal speech.no focal neurological deficit - Urinary Catheter Management Suprapubic Cath placed during this visit: no Reason for continuing: Other continuation reason Results - Labs CBC & Chem 7: 11/24/17 13:41 11/20/17 12:08 Laboratory Results - last 24 hr 11/24/17 11/24/17 11/24/17 13:41 16:54 21:09 Hgb 12.9 Hct 39.4 POC Glucose 333 H 294 H 11/25/17 11/25/17 08:04 12:28 Hgb Hct POC Glucose 191 H 211 H Assessment and Plan - Plan 11/25: Continue effort for placement patient awaiting bed in a rehab in [place], cyanide case hardener following I discussed with her today A/P: - Neuromyelitis optica, transverse myelitis, paraplegia: Returned from [facility] following a one-month stay there. Continue prednisone, CellCept. Bactrim Wednesday/Wednesday/Wednesday prophylactically. Appreciate neurology, hematology recommendations. Continue physical therapy, Occupational Therapy. Currently awaiting placement - Diabetes mellitus, insulin-dependent: Blood sugar better controlled with new Levemir nightly, prandial NovoLog. Monitor Accu-Cheks and cover with sliding scale insulin. - Hypertension, chronic essential: Continue metoprolol. - Anemia: H&H are stable and no further hematuria . - Pulmonary embolus: Eliquis has been stopped due to bleeding around suprapubic site , Eliquis resumed - Urinary retention: Suprapubic catheter in place. Appreciate urology recommendations. Suprapubic catheter exchange and upsizing 11/14 7. - Hematuria with clots around suprapubic site -now resolved, reconsult to Dr. Velasco urology, Eliquis resumed, - DVT prophylaxis Eliquis Discharge Planning Awaiting placement
[2017-11-25] MEDS: Nortriptyline 10 MG Capsule PO SCH (22:10)
[2017-11-25] MEDS: Gabapentin 300 MG Capsule PO SCH (22:12)
[2017-11-26] MEDS: Ascorbic Acid 500 MG Tablet PO SCH (08:48)
[2017-11-26] MEDS: Baclofen 10 MG Tablet PO SCH ×4 (08:48→22:27)
[2017-11-26] MEDS: Gabapentin 100 MG Capsule PO SCH ×2 (08:48→22:26)
[2017-11-26] MEDS: Sulfamethoxazole/Trimethoprim 400/80 MG Tablet PO SCH (08:49)
[2017-11-26] MEDS: Calcium/Vitamin D 250/125 MG Tablet PO SCH (08:50)
[2017-11-26] MEDS: predniSONE 10 MG Tablet PO SCH (08:50)
[2017-11-26] MEDS: Insulin Detemir Inj 1,000 UNIT/10 ML Vial SQ SCH ×2 (09:07→22:25)
[2017-11-26] MEDS: Calcium Acetate 667 MG Capsule PO SCH ×2 (13:25→23:00)
--- NOTE | 2017-11-26 15:49 | P.PNIM ---
Subjective Interval history: No overnight events, no changes in neurologic deficits. Afebrile. Physical Exam Vital signs: Vital Signs 11/25/17 16:28 11/25/17 20:00 11/26/17 00:00 Temperature 97.6 F 98.3 F 98.0 F Pulse Rate 70 90 89 Respiratory Rate 18 18 18 Blood Pressure 119/62 123/75 114/74 Pulse Oximetry 100 100 100 11/26/17 06:09 11/26/17 08:37 11/26/17 12:21 Temperature 98.2 F 97.8 F 97.5 F L Pulse Rate 81 77 89 Respiratory Rate 18 18 18 Blood Pressure 130/71 119/59 L 122/60 Pulse Oximetry 100 98 100 Intake & Output 11/25/17 11/26/17 11/26/17 18:59 06:59 18:59 Intake Total 240 / 240 Output Total 1600 / 1600 1950 / 1950 Balance -1600 / -1600 -1710 / -1710 Weight 109.4 kg Intake: Oral 240 / 240 Output: Urine 1949 / 1950 Urine Amount (Catheter) 1600 / 1600 Suprapubic 1600 / 1600 Other: Date of Last Bowel Movement 11/24/17 11/24/17 # Bowel Movements 0 Narrative: Not in distress CARDIOVASCULAR: RRR, no gallops, or rubs. RESPIRATORY: Fair air entry bilaterally. No W, R, or R GASTROINTESTINAL: Abdomen soft, non-tender, nondistended. Positive bowel sounds MUSCULOSKELETAL: Extremities without clubbing, cyanosis, or edema. Pedal pulses appreciated NEUROLOGICAL: Awake, alert, oriented 3. No cranial nerve deficits. Positive for paraplegia. - Urinary Catheter Management Suprapubic Cath placed during this visit: no Reason for continuing: Other continuation reason Results - Labs CBC & Chem 7: 11/24/17 13:41 11/20/17 12:08 Laboratory Results - last 24 hr 11/25/17 11/25/17 11/26/17 16:48 21:00 08:06 POC Glucose 324 H 232 H 133 H 11/26/17 12:23 POC Glucose 244 H Assessment and Plan - Plan 11/25: Continue effort for placement patient awaiting bed in a rehab in [place], major case detective following I discussed with her today A/P: - Neuromyelitis optica, transverse myelitis, paraplegia: Returned from [facility] following a one-month stay there. Continue prednisone, CellCept. Bactrim Wednesday/Wednesday/Wednesday prophylactically. Appreciate neurology, hematology recommendations. Continue physical therapy, Occupational Therapy. Currently awaiting placement - Diabetes mellitus, insulin-dependent: Continue Levemir, prandial NovoLog. Monitor Accu-Cheks and cover with sliding scale insulin. - Hypertension, chronic essential: Continue metoprolol. - Anemia: H&H are stable and no further hematuria . - Pulmonary embolus: Eliquis previously has been stopped due to bleeding around suprapubic site , Eliquis resumed - Urinary retention: Suprapubic catheter in place. Appreciate urology recommendations. Suprapubic catheter exchange and upsizing 11/14 7. - Hematuria with clots around suprapubic site -now resolved, reconsult to Dr. Velasco urology, Eliquis resumed, - DVT prophylaxis Eliquis Discharge Planning Awaiting placement
[2017-11-26] MEDS: Insulin NovoLOG Aspart Correctional Sugar Inj SQ SCH (22:22)
[2017-11-26] MEDS: Gabapentin 300 MG Capsule PO SCH (22:26)
[2017-11-26] MEDS: Nortriptyline 10 MG Capsule PO SCH (22:26)
[2017-11-27] MEDS: Gabapentin 100 MG Capsule PO SCH ×2 (08:42→21:32)
[2017-11-27] MEDS: predniSONE 10 MG Tablet PO SCH (08:43)
[2017-11-27] MEDS: Ascorbic Acid 500 MG Tablet PO SCH (08:43)
[2017-11-27] MEDS: Baclofen 10 MG Tablet PO SCH ×4 (08:43→21:32)
[2017-11-27] MEDS: Calcium/Vitamin D 250/125 MG Tablet PO SCH (08:44)
[2017-11-27] MEDS: Calcium Acetate 667 MG Capsule PO SCH ×3 (08:44→19:03)
[2017-11-27] MEDS: Insulin Detemir Inj 1,000 UNIT/10 ML Vial SQ SCH ×2 (08:46→21:59)
--- NOTE | 2017-11-27 08:56 | P.PNIM ---
Subjective Interval history: No overnight events, slept well. No neurologic changes. Afebrile. Physical Exam Vital signs: Vital Signs 11/26/17 12:21 11/26/17 16:38 11/26/17 20:00 Temperature 97.5 F L 98.2 F 97.6 F Pulse Rate 89 90 86 Respiratory Rate 18 18 19 Blood Pressure 122/60 105/56 L 120/71 Pulse Oximetry 100 100 100 11/27/17 00:00 11/27/17 04:00 Temperature 98 F 97.8 F Pulse Rate 82 72 Respiratory Rate 17 16 Blood Pressure 118/69 134/74 Pulse Oximetry 100 96 Intake & Output 11/26/17 11/27/17 11/27/17 18:59 06:59 18:59 Weight 109.5 kg Other: Date of Last Bowel Movement 11/24/17 Narrative: Not in distress CARDIOVASCULAR: RRR, no gallops, or rubs. RESPIRATORY: Fair air entry bilaterally. No W, R, or R GASTROINTESTINAL: Abdomen soft, non-tender, nondistended. Positive bowel sounds MUSCULOSKELETAL: Extremities without clubbing, cyanosis, or edema. Pedal pulses appreciated NEUROLOGICAL: Awake, alert, oriented 3. No cranial nerve deficits. Positive for paraplegia, sensory sensation lower extremities intact. - Urinary Catheter Management Suprapubic Cath placed during this visit: no Reason for continuing: Chronic Urinary Retention Results - Labs CBC & Chem 7: 11/24/17 13:41 11/20/17 12:08 Laboratory Results - last 24 hr 11/26/17 11/26/17 11/26/17 12:23 17:49 22:12 POC Glucose 244 H 335 H 203 H 11/27/17 08:33 POC Glucose 138 H Assessment and Plan - Plan 11/25: Continue effort for placement patient awaiting bed in a rehab in [place], case aide following I discussed with her today - Neuromyelitis optica, transverse myelitis, paraplegia: Returned from [facility] following a one-month stay there. Continue prednisone, CellCept. Bactrim Wednesday/Wednesday/Wednesday prophylactically. Appreciate neurology, hematology recommendations. Continue physical therapy, Occupational Therapy. Currently awaiting placement - Diabetes mellitus, insulin-dependent: Continue Levemir, prandial NovoLog. Monitor Accu-Cheks and cover with sliding scale insulin. - Hypertension, chronic essential: Continue metoprolol. - Anemia: H&H are stable and no further hematuria . - Pulmonary embolus: Eliquis previously has been stopped due to bleeding around suprapubic site , Eliquis resumed - Urinary retention: Suprapubic catheter in place. Appreciate urology recommendations. Suprapubic catheter exchange and upsizing 11/14 7. - Hematuria with clots around suprapubic site -now resolved, reconsult to Dr. Velasco urology, Eliquis resumed, - DVT prophylaxis Eliquis Discharge Planning Awaiting placement
[2017-11-27] MEDS: Insulin NovoLOG Aspart Correctional Sugar Inj SQ SCH ×6 (09:08→21:59)
[2017-11-27] MEDS: Gabapentin 300 MG Capsule PO SCH (21:32)
[2017-11-27] MEDS: Nortriptyline 10 MG Capsule PO SCH (21:32)
[2017-11-28] MEDS: Insulin Detemir Inj 1,000 UNIT/10 ML Vial SQ SCH ×3 (09:44→22:44)
[2017-11-28] MEDS: Insulin NovoLOG Aspart Correctional Sugar Inj SQ SCH ×4 (09:44→22:44)
[2017-11-28] MEDS: predniSONE 10 MG Tablet PO SCH (09:47)
[2017-11-28] MEDS: Gabapentin 100 MG Capsule PO SCH ×2 (09:48→22:32)
[2017-11-28] MEDS: Baclofen 10 MG Tablet PO SCH ×4 (09:48→22:32)
[2017-11-28] MEDS: Calcium Acetate 667 MG Capsule PO SCH ×3 (09:49→18:55)
[2017-11-28] MEDS: Calcium/Vitamin D 250/125 MG Tablet PO SCH (09:49)
[2017-11-28] MEDS: Ascorbic Acid 500 MG Tablet PO SCH (09:50)
--- NOTE | 2017-11-28 09:58 | P.PNIM ---
Subjective Interval history: No overnight events, patient has not had a bowel movement since Wednesday. Blood glucose 200 3340s. Physical Exam Vital signs: Vital Signs 11/27/17 12:00 11/27/17 16:00 11/27/17 20:00 Temperature 97.2 F L 98 F 98.7 F Pulse Rate 82 78 Respiratory Rate 20 20 16 Blood Pressure 121/57 L 127/66 138/83 Pulse Oximetry 100 100 99 11/28/17 00:00 11/28/17 03:11 11/28/17 04:00 Temperature 98.1 F 98.5 F Pulse Rate 73 85 Respiratory Rate 16 18 18 Blood Pressure 141/70 H 115/56 L Pulse Oximetry 100 98 11/28/17 04:56 11/28/17 08:00 Temperature 98.2 F Pulse Rate 92 H Respiratory Rate 18 17 Blood Pressure 96/63 L Pulse Oximetry 98 Intake & Output 11/27/17 11/28/17 11/28/17 18:59 06:59 18:59 Intake Total 1000 / 1000 800 / 800 Output Total 2150 / 2150 1700 / 1700 Balance -1150 / -1150 -900 / -900 Weight 109.8 kg Intake: Oral 1000 / 1000 800 / 800 Oral Supplement 0 / 0 Output: Urine 1700 / 1700 1700 / 1700 Urine Amount (Catheter) 450 / 450 Suprapubic 450 / 450 Other: Date of Last Bowel Movement 11/24/17 Narrative: Not in distress CARDIOVASCULAR: RRR, no gallops, or rubs. RESPIRATORY: Fair air entry bilaterally. No W, R, or R GASTROINTESTINAL: Abdomen soft, non-tender, nondistended. Positive bowel sounds MUSCULOSKELETAL: Extremities without clubbing, cyanosis, or edema. Pedal pulses appreciated NEUROLOGICAL: Awake, alert, oriented 3. No cranial nerve deficits. Positive for paraplegia, sensory sensation lower extremities intact. - Urinary Catheter Management Suprapubic Cath placed during this visit: no Reason for continuing: Other continuation reason Results - Labs CBC & Chem 7: 11/24/17 13:41 11/20/17 12:08 Laboratory Results - last 24 hr 11/27/17 11/27/17 11/27/17 13:38 18:59 21:35 POC Glucose 235 H 343 H 268 H 11/28/17 11/28/17 04:39 09:42 POC Glucose 172 H 179 H Assessment and Plan - Plan 11/25: Continue effort for placement patient awaiting bed in a rehab in [place], case supervisor following I discussed with her today - Neuromyelitis optica, transverse myelitis, paraplegia: Returned from [facility] following a one-month stay there. Continue prednisone, CellCept. Bactrim Wednesday/Wednesday/Wednesday prophylactically. Appreciate neurology, hematology recommendations. Continue physical therapy, Occupational Therapy. Currently awaiting placement - Diabetes mellitus, insulin-dependent: Blood glucose uncontrolled, increase morning Levemir, continue evening Levemir dose, prandial NovoLog. Monitor Accu- Cheks and cover with sliding scale insulin. - Hypertension, chronic essential: Continue metoprolol. - Anemia: H&H are stable and no further hematuria . - Pulmonary embolus: Eliquis previously has been stopped due to bleeding around suprapubic site , Eliquis resumed - Urinary retention: Suprapubic catheter in place. Appreciate urology recommendations. Suprapubic catheter exchange and upsizing 11/14 7. - Hematuria with clots around suprapubic site -now resolved, reconsult to Dr. Velasco urology, Eliquis resumed -Constipation-start Senokot daily. - DVT prophylaxis Eliquis Discharge Planning Awaiting placement
[2017-11-28] MEDS: Bisacodyl 10 MG Supp RECTAL PRN (14:17)
[2017-11-28] MEDS: diazePAM 5 MG Tablet PO PRN (14:17)
[2017-11-28] MEDS: Senna/Docusate Sodium 8.6/50 MG Tablet PO SCH ×2 (18:54→22:33)
[2017-11-28] MEDS: Nortriptyline 10 MG Capsule PO SCH (22:32)
[2017-11-28] MEDS: Gabapentin 300 MG Capsule PO SCH (22:33)
[2017-11-29] MEDS: Insulin Detemir Inj 1,000 UNIT/10 ML Vial SQ SCH ×2 (06:24→20:40)
[2017-11-29] MEDS: Senna/Docusate Sodium 8.6/50 MG Tablet PO SCH ×2 (09:35→20:43)
[2017-11-29] MEDS: Calcium Acetate 667 MG Capsule PO SCH ×3 (09:36→17:45)
[2017-11-29] MEDS: Baclofen 10 MG Tablet PO SCH ×4 (09:36→20:43)
[2017-11-29] MEDS: Calcium/Vitamin D 250/125 MG Tablet PO SCH (09:36)
[2017-11-29] MEDS: Sulfamethoxazole/Trimethoprim 400/80 MG Tablet PO SCH (09:36)
[2017-11-29] MEDS: predniSONE 10 MG Tablet PO SCH (09:37)
[2017-11-29] MEDS: Gabapentin 100 MG Capsule PO SCH ×2 (09:37→20:41)
[2017-11-29] MEDS: Ascorbic Acid 500 MG Tablet PO SCH (09:37)
--- NOTE | 2017-11-29 10:31 | P.PN ---
Subjective Interval history: Patient is seen lying in bed watching TV. She tells me that she is generally doing well except for a cough. She has noticed that she has been coughing mostly during the night but also during the day. Feels like she has something that she can bring up but she cannot get it all the way out. She does have a history of GERD and is currently on PPI. Denies any significant shortness of breath or chest pain. No pain when breathing although she is sore from us. Denies any nausea vomiting or diarrhea. She has been constipated and is taking stool softeners; she was able to have a bowel movement last. Physical Exam Vital signs: Vital Signs 11/28/17 12:00 11/28/17 20:00 11/29/17 00:00 Temperature 98.2 F 97.4 F L 97.9 F Pulse Rate 96 H 83 87 Respiratory Rate 17 18 18 Blood Pressure 118/65 145/86 H 117/78 Pulse Oximetry 98 99 99 11/29/17 01:26 11/29/17 04:00 Temperature 98.4 F Pulse Rate 80 Respiratory Rate 18 18 Blood Pressure 140/77 Pulse Oximetry 99 Intake & Output 11/28/17 11/29/17 11/29/17 18:59 06:59 18:59 Output Total 2000 / 1999 1500 / 1500 Balance -2000 / -2000 -1500 / -1500 Weight 110.2 kg Output: Urine 1999 / 1999 300 / 300 Urine Amount (Catheter) 1200 / 1200 Suprapubic 1200 / 1200 Other: Date of Last Bowel Movement 11/28/17 11/29/17 # Bowel Movements 1 1 Narrative: GENERAL: Well-nourished, well-developed adult female in no obvious distress. SKIN: Warm and dry. HEAD: Atraumatic. Normocephalic. CARDIOVASCULAR: Regular rate and rhythm. RESPIRATORY: No accessory muscle use. Clear to auscultation. Breath sounds equal bilaterally. Patient noticed to cough spontaneously during exam with no significant sputum production. GASTROINTESTINAL: Abdomen soft, non-tender, distended. Positive bowel sounds. MUSCULOSKELETAL: Extremities without clubbing, cyanosis, or edema. No obvious deformities. NEUROLOGICAL: Awake and alert. No obvious cranial nerve deficits. Motor grossly within normal limits. Normal speech. PSYCHIATRIC: Appropriate mood and affect; insight and judgment questionable. - Urinary Catheter Management Suprapubic Cath placed during this visit: no Reason for continuing: Chronic Urinary Retention Results - Labs CBC & Chem 7: 11/24/17 13:41 11/20/17 12:08 Laboratory Results - last 24 hr 11/28/17 11/28/17 11/28/17 13:56 18:53 22:34 POC Glucose 232 H 256 H 219 H 11/29/17 11/29/17 03:41 09:33 POC Glucose 178 H 138 H Assessment and Plan - Plan A&P - Neuromyelitis optica, transverse myelitis, paraplegia: Returned from [facility] following a one-month stay there. Continue prednisone, CellCept. Bactrim Wednesday/Wednesday/Wednesday prophylactically. Appreciate neurology, hematology recommendations. Continue physical therapy, Occupational Therapy. Currently awaiting placement - Diabetes mellitus, insulin-dependent: Blood glucose uncontrolled, increase morning Levemir, continue evening Levemir dose, prandial NovoLog. Monitor Accu- Cheks and cover with sliding scale insulin. - Hypertension, chronic essential: Continue metoprolol. - Anemia: H&H are stable and no further hematuria . - Pulmonary embolus: Eliquis previously has been stopped due to bleeding around suprapubic site , Eliquis resumed. Patient complaining of cough on 11/29 -saturations normal. Will order chest x-ray to evaluate. Currently taking PPI for GERD. - Urinary retention: Suprapubic catheter in place. Appreciate urology recommendations. Suprapubic catheter exchange and upsizing 11/14 7. - Hematuria with clots around suprapubic site -now resolved, reconsult to Dr. Velasco urology, Eliquis resumed -Constipation-start Senokot daily. - DVT prophylaxis Eliquis Discharge Planning Awaiting placement - 11/25: Continue effort for placement patient awaiting bed in a rehab in [place], gearcase assembler following.
[2017-11-29] MEDS: Insulin NovoLOG Aspart Correctional Sugar Inj SQ SCH ×4 (11:44→20:43)
--- NOTE | 2017-11-29 12:06 | XR ---
EXAM DATE: 11/29/2017 11:59 AM EDT AGE/SEX: 47 years / Female INDICATIONS: Cough. CLINICAL DATA: This is the patient's initial encounter. Patient reports that signs and symptoms have been present for 2 weeks and indicates a pain score of 0/10. MEDICAL/SURGICAL HISTORY: . NMO None. COMPARISON: [facility], CHEST SINGLE AP, 10/02/2017. . FINDINGS: A single AP view of the chest demonstrates the lungs to be symmetrically aerated without evidence of mass, infiltrate or effusion. The cardiomediastinal contours are unremarkable. Osseous structures a re intact. CONCLUSION: Negative for an acute process Electronically signed by: Mario Mckinney MD 11/29/2017 12:04 PM EDT
[2017-11-29] MEDS: Gabapentin 300 MG Capsule PO SCH (20:41)
[2017-11-29] MEDS: Nortriptyline 10 MG Capsule PO SCH (20:42)
[2017-11-30] MEDS: Insulin Detemir Inj 1,000 UNIT/10 ML Vial SQ SCH ×2 (08:33→23:04)
--- NOTE | 2017-11-30 09:03 | P.PN ---
Subjective Interval history: Follow-up visit neuromyelitis optica, transverse myelitis, paraplegia, DM 2, HTN , PE. Patient seen and examined today. Reports she is doing okay. States she has been having a cough, unable to expectorate, mostly occurring at night. Denies any fevers, chills, nausea, vomiting. Denies any shortness of breath or dyspnea. Denies chest pain, palpitations, headaches, dizziness. Physical Exam Vital signs: Vital Signs 11/29/17 16:00 11/29/17 20:15 11/30/17 00:00 Temperature 98.3 F 98.6 F 98.1 F Pulse Rate 77 84 80 Respiratory Rate 20 20 18 Blood Pressure 106/58 L 128/73 119/55 L Pulse Oximetry 100 100 99 11/30/17 04:00 Temperature 97.3 F L Pulse Rate 97 H Respiratory Rate 18 Blood Pressure 108/58 L Pulse Oximetry 97 Intake & Output 11/29/17 11/30/17 11/30/17 18:59 06:59 18:59 Intake Total 720 / 720 800 / 800 Output Total 1000 / 1000 3200 / 3200 Balance -280 / -280 -2400 / -2400 Weight 110.2 kg Intake: Oral 720 / 720 800 / 800 Oral Supplement 0 / 0 Output: Urine 1400 / 1400 Urine Amount (Catheter) 1000 / 1000 1800 / 1800 Suprapubic 1000 / 1000 1800 / 1800 Other: Date of Last Bowel Movement 11/28/17 11/29/17 Narrative: GENERAL: This is a well-nourished, well-developed patient, in no apparent distress. SKIN: Warm and dry. HEENT: Normocephalic. Nose without bleeding. Airway patent. NECK: Trachea midline. CARDIOVASCULAR: Regular rate and rhythm without murmurs, gallops, or rubs. RESPIRATORY: Clear to auscultation. Breath sounds equal bilaterally. No wheezes , rales, or rhonchi. GASTROINTESTINAL: Abdomen soft, non-tender, nondistended. Bowel Sounds normoactive x4. MUSCULOSKELETAL: Extremities without clubbing, cyanosis, or edema. NEUROLOGICAL: Awake and alert. Oriented to time, place, person. Motor and sensory grossly within normal limits. Normal speech. - Urinary Catheter Management Suprapubic Cath placed during this visit: no Reason for continuing: Other continuation reason Results - Labs CBC & Chem 7: 11/24/17 13:41 11/20/17 12:08 Laboratory Results - last 24 hr 11/29/17 11/29/17 11/29/17 09:33 13:53 18:28 POC Glucose 138 H 310 H 247 H 11/29/17 11/30/17 11/30/17 20:28 03:51 07:47 POC Glucose 281 H 143 H 110 - Imaging Impressions Chest X-Ray 11/29/17 00:00 CONCLUSION: Negative for an acute process Assessment and Plan - Assessment (1) Neuromyelitis optica Code(s): G36.0 - Neuromyelitis optica [Devic] Status: Acute (2) Pulmonary embolism Code(s): I26.99 - Other pulmonary embolism without acute cor pulmonale Status : Acute (3) DM type 2 (diabetes mellitus, type 2) Code(s): E11.9 - Type 2 diabetes mellitus without complications Status: Acute - Plan 47-year-old female with a history of diabetes, neuromyelitis optica with transverse myelitis that resulted in sensorimotor paraplegia diagnosed in May 2017, arthritis, hypertension, iron deficiency anemia was a transfer back from [facility]. Neuromyelitis optica, transverse myelitis, paraplegia -Returned from [facility] following a one-month stay there. -Continue prednisone 30mg daily, CellCept for 6 months. -Bactrim Wednesday/Wednesday/Wednesday prophylactically. -Appreciate neurology, hematology recommendations. -Continue physical therapy, Occupational Therapy. -Currently awaiting placement Diabetes mellitus, insulin-dependent -HgA1C 7.9 (10/05/17) -Blood glucose uncontrolled, possibly related to steroid use -Increase morning Levemir -continue evening Levemir dose, prandial NovoLog. -Monitor Accu-Cheks and cover with sliding scale insulin. Hypertension, chronic essential -Continue metoprolol. Anemia of chronic disease - H&H are stable and no further hematuria Pulmonary embolus -Eliquis previously has been stopped due to bleeding around suprapubic site -Eliquis resumed Neurogenic bladder Urinary retention -Suprapubic catheter in place. Appreciate urology recommendations. -Suprapubic catheter exchange and upsizing 11/14 Constipation -Bowel regimen. start Senokot daily. DVT prophylaxis Eliquis Code Status: Full Code Discussed Condition With: Patient, nursing Discharge Planning: Awaiting Placement. CM following
[2017-11-30] MEDS: Baclofen 10 MG Tablet PO SCH ×4 (09:30→22:08)
[2017-11-30] MEDS: Calcium/Vitamin D 250/125 MG Tablet PO SCH (09:30)
[2017-11-30] MEDS: Gabapentin 100 MG Capsule PO SCH ×2 (09:31→22:09)
[2017-11-30] MEDS: Ascorbic Acid 500 MG Tablet PO SCH (09:31)
[2017-11-30] MEDS: predniSONE 10 MG Tablet PO SCH (09:32)
[2017-11-30] MEDS: Calcium Acetate 667 MG Capsule PO SCH ×3 (09:33→18:04)
[2017-11-30] MEDS: Senna/Docusate Sodium 8.6/50 MG Tablet PO SCH ×2 (09:34→22:08)
[2017-11-30] MEDS: Insulin NovoLOG Aspart Correctional Sugar Inj SQ SCH ×4 (09:35→23:05)
[2017-11-30] MEDS: Gabapentin 300 MG Capsule PO SCH (22:08)
[2017-11-30] MEDS: Nortriptyline 10 MG Capsule PO SCH (22:08)
[2017-11-30] MEDS: Pantoprazole Sodium 20 MG DR Tablet PO SCH (22:08)
[2017-11-30] MEDS: Artificial Tears Opth Drops 15 ML Bottle EACH EYE PRN (23:37)
[2017-12-01 08:08] LABS: Baso % (Auto) 0.3 % (0.0-2.0); Eos # (Auto) 0.1 th/mm3 (0.0-0.4); Eos % (Auto) 1.1 % (0.0-4.0); Hematocrit 37.9 % (35.0-46.0); Hemoglobin 12.2 gm/dL (11.6-15.3); Lymph # (Auto) 3.3 th/mm3 (1.0-4.8); Lymph % (Auto) 42.5 % (9.0-44.0); Mean Corpuscular HGB Conc 32.3 % (32.0-36.0); Mean Corpuscular Hemoglobin 27.1 pg (27.0-34.0); Mean Corpuscular Volume 83.9 fL (80.0-100.0); Mean Platelet Volume 10.1 fL (7.0-11.0); Mono # (Auto) 0.6 th/mm3 (0.0-0.9); Mono % (Auto) 7.8 % (0.0-8.0); Neut # (Auto) 3.8 th/mm3 (1.8-7.7); Neut % (Auto) 48.3 % (16.0-70.0); Platelet Count 230 th/mm3 (150-450); Red Blood Count 4.52 mil/mm3 (4.00-5.30); Red Cell Distribution Width 16.6 % (11.6-17.2); White Blood Count 7.8 th/mm3 (4.0-11.0)
[2017-12-01 08:25] LABS: Anion Gap 9 meq/L (5-15); Blood Urea Nitrogen 14 mg/dL (7-18); Calcium 9.4 mg/dL (8.5-10.1); Carbon Dioxide 27.4 meq/L (21.0-32.0); Chloride 104 meq/L (98-107); Glomerular Filtration Rate Greater Than 89 mL/min (>89); Glucose,Random 175 mg/dL (74-106); Potassium 3.8 meq/L (3.5-5.1); Sodium 140 meq/L (136-145)
[2017-12-01] MEDS: predniSONE 10 MG Tablet PO SCH (09:42)
[2017-12-01] MEDS: Calcium/Vitamin D 250/125 MG Tablet PO SCH (09:42)
[2017-12-01] MEDS: Baclofen 10 MG Tablet PO SCH ×4 (09:43→22:39)
[2017-12-01] MEDS: Gabapentin 100 MG Capsule PO SCH ×2 (09:44→22:42)
[2017-12-01] MEDS: Sulfamethoxazole/Trimethoprim 400/80 MG Tablet PO SCH (09:44)
[2017-12-01] MEDS: Ascorbic Acid 500 MG Tablet PO SCH (09:44)
[2017-12-01] MEDS: Calcium Acetate 667 MG Capsule PO SCH ×3 (09:45→18:49)
[2017-12-01] MEDS: Senna/Docusate Sodium 8.6/50 MG Tablet PO SCH ×2 (09:46→22:39)
[2017-12-01] MEDS: Insulin NovoLOG Aspart Correctional Sugar Inj SQ SCH ×4 (09:47→22:42)
[2017-12-01] MEDS: Insulin Detemir Inj 1,000 UNIT/10 ML Vial SQ SCH ×2 (09:47→22:41)
--- NOTE | 2017-12-01 15:12 | P.DS ---
Date of admission: 11/09/17 20:58 Primary care physician: Suzette Mccarthy Brief History from admission: Admitted secondary to neuromyelitis optica, transverse myelitis, paraplegia. See H&P. DS: Medications - Discharge Medications Prescriptions: oxycodone 5 mg PO Q4H PRN #20 tab PRN Reason: PAIN 6-10 DS: Summary Hospital Course: Mrs. Friedman is a 47-year-old female. 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 She has been stabilized at this visit and is awaiting placement. Medically she is stable and cleared for placement when bed is available. - Time Spent with Patient Total time spent providing and/or coordinating discharge services: Exam Vital signs: Vital Signs 11/30/17 16:00 11/30/17 20:00 11/30/17 20:29 Temperature 98.4 F 97.5 F L Pulse Rate 85 92 H 85 Respiratory Rate 20 18 20 Blood Pressure 108/61 124/62 Pulse Oximetry 99 91 L 12/01/17 00:00 12/01/17 04:00 12/01/17 08:00 Temperature 98 F 98.1 F 97.5 F L Pulse Rate 97 H 78 74 Respiratory Rate 18 18 20 Blood Pressure 108/64 103/55 L 103/51 L Pulse Oximetry 100 100 100 12/01/17 08:58 12/01/17 12:00 Temperature 97.3 F L Pulse Rate 72 85 Respiratory Rate 17 20 Blood Pressure 109/58 L Pulse Oximetry 100 Intake & Output 11/30/17 12/01/17 12/01/17 18:59 06:59 18:59 Intake Total 720 / 720 Output Total 650 / 650 2 / 2 1974 Balance 70 / 70 -2 / -2 -1974 Weight 113.7 kg Intake: Oral 720 / 720 Output: Urine 650 / 650 Stool 2 / 2 Urine Amount (Catheter) 1974 Suprapubic 1974 Other: Date of Last Bowel Movement 11/28/17 11/30/17 # Incontinent Bowel Movements 1 Results Procedures completed during hospitalization: none Labs on day of discharge: Labs from last 24 hours 12/01/17 12/01/17 12/01/17 12:35 07:27 05:36 WBC RBC Hgb Hct MCV MCH MCHC RDW Plt Count MPV Neut % (Auto) Lymph % (Auto) [place] % (Auto) Eos % (Auto) Baso % (Auto) Neut # (Auto) Lymph # (Auto) [place] # (Auto) Eos # (Auto) Baso # (Auto) WBC Differential Differential Comment Sodium 140 Potassium 3.8 Chloride 104 Carbon Dioxide 27.4 Anion Gap 9 BUN 14 Creatinine 0.53 Estimated GFR Greater than 89 POC Glucose 373 H 171 H Random Glucose 175 H Calcium 9.4 12/01/17 12/01/17 11/30/17 05:36 05:30 22:10 WBC 7.8 RBC 4.52 Hgb 12.2 Hct 37.9 MCV 83.9 MCH 27.1 MCHC 32.3 RDW 16.6 Plt Count 230 MPV 10.1 Neut % (Auto) 48.3 Lymph % (Auto) 42.5 [place] % (Auto) 7.8 Eos % (Auto) 1.1 Baso % (Auto) 0.3 Neut # (Auto) 3.8 Lymph # (Auto) 3.3 [place] # (Auto) 0.6 Eos # (Auto) 0.1 Baso # (Auto) 0.0 WBC Differential . Differential Comment Auto diff final Sodium Potassium Chloride Carbon Dioxide Anion Gap BUN Creatinine Estimated GFR POC Glucose 189 H 309 H Random Glucose Calcium 11/30/17 16:45 WBC RBC Hgb Hct MCV MCH MCHC RDW Plt Count MPV Neut % (Auto) Lymph % (Auto) [place] % (Auto) Eos % (Auto) Baso % (Auto) Neut # (Auto) Lymph # (Auto) [place] # (Auto) Eos # (Auto) Baso # (Auto) WBC Differential Differential Comment Sodium Potassium Chloride Carbon Dioxide Anion Gap BUN Creatinine Estimated GFR POC Glucose 365 H Random Glucose Calcium - Impressions ITS Impressions Chest X-Ray 11/29/17 00:00 CONCLUSION: Negative for an acute process Discharge Plan - Discharge Disposition Patient Disposition: Discharge to SNF - Discharge Condition Condition: Stable - Discharge Order Discharge Orders: Discharge Order (Routine); Ordered 12/01/17 Ordered By: Joe Milan - Discharge Details Anticipated Discharge Date: 12/01/17 - Physicians Team Primary Care Provider: Suzette Mccarthy Attending Provider: Joe Milan Other Providers: Karrie Estrella MD ; Amos Velasco DO ; [facility] ; Chino Houston MD - Rxs /Orders / Referrals /Forms Prescriptions: New cetirizine 10 mg Tablet 10 mg PO HS RF: 0 clonidine HCl [Catapres] 0.1 mg Tablet 0.1 mg PO Q6H PRN (Reason: Sbp>160, Dbp>90) RF: 0 insulin aspart U-100 [Novolog U-100 Insulin aspart] 100 unit/mL Solution 16 units Sub-Q TIDAC RF: 0 insulin aspart U-100 [Novolog U-100 Insulin aspart] 100 unit/mL Solution 0 unit Sub-Q ACHS RF: 0 insulin detemir U-100 [Levemir U-100 Insulin] 100 unit/mL Solution 40 unit Sub-Q HS RF: 0 insulin detemir U-100 [Levemir U-100 Insulin] 100 unit/mL Solution 24 unit Sub-Q AC BREAKFAST RF: 0 lactulose 20 gram/30 mL Solution 30 ml PO DAILY PRN (Reason: Severe Consitipation) RF: 0 magnesium hydroxide [Milk of Magnesia] 400 mg/5 mL Suspension 30 ml PO Q12H PRN (Reason: Mild Constipation) RF: 0 oxycodone 5 mg Tablet 5 mg PO Q4H PRN (Reason: PAIN 6-10) Qty: 20 RF: 0 Continue acetaminophen [Tylenol] 325 mg Tablet 650 mg PO Q4H PRN (Reason: MILD PAIN) apixaban [Eliquis] 5 mg Tablet 10 mg PO BID ascorbic acid (vitamin C) 250 mg Tablet 250 mg PO DAILY baclofen 10 mg Tablet 30 mg PO QID calcium acetate 667 mg Capsule 667 mg PO TID calcium carbonate-vitamin D3 [Os-Karson 500 + D3] 500 mg(1,250mg) -200 unit Tablet 1 tab PO DAILY cholecalciferol (vitamin D3) 1,000 unit Tablet 400 units PO DAILY diazepam 5 mg Tablet 5 mg PO Q8H PRN (Reason: Muscle Spasm) diphenhydramine HCl 12.5 mg/5 mL Elixir 25 mg PO Q6H PRN (Reason: ITCHING ) diphenhydramine-zinc acetate 2-0.1 % Cream 1 applic TOPICAL TID PRN (Reason: ITCHING AND/OR RASH) docusate sodium 100 mg Capsule 100 mg PO DAILY PRN (Reason: Constipation) gabapentin 300 mg Capsule 300 mg PO HS gabapentin 100 mg Capsule 200 mg PO BID glyburide 5 mg Tablet 5 mg PO BID metoprolol succinate 25 mg Tablet Extended Release 24 Hr 25 mg PO DAILY mycophenolate mofetil [CellCept] 500 mg Tablet 500 mg PO BID nortriptyline 10 mg Capsule 10 mg PO HS pantoprazole [Protonix] 20 mg Tablet,Delayed Release (Dr/Ec) 20 mg PO DAILY pantoprazole [Protonix] 40 mg Tablet,Delayed Release (Dr/Ec) 40 mg PO DAILY potassium chloride 10 mEq Capsule, Extended Release 30 meq PO DAILY pravastatin 40 mg Tablet 40 mg PO HS prednisone 20 mg Tablet 30 mg PO DAILY propylene glycol-glycerin 1-0.3 % Drops 1 - 2 drop ophthalmic (eye) PRN sennosides 8.6 mg Tablet 8.6 mg PO HS sulfamethoxazole-trimethoprim 400-80 mg Tablet 1 tab PO DIRECTED Discontinued baclofen 20 mg Tablet 20 mg PO QID baclofen 10 mg Tablet 10 mg PO QID cholecalciferol (vitamin D3) 1,000 unit Tablet 1,000 units PO DAILY NEB insulin detemir U-100 [Levemir U-100 Insulin] 100 unit/mL Solution 30 unit SUB-Q Q24H insulin regular human [Novolin R Regular U-100 Insuln] 100 unit/mL Solution 1 unit SUB-Q DIRECTED insulin regular human [Novolin R Regular U-100 Insuln] 100 unit/mL Solution 13 unit SUB-Q TIDAC oxycodone 10 mg Tablet 5 mg PO Q4H PRN (Reason: PAIN SCALE 6-10) Referrals: Suzette Mccarthy ARNP [Primary Care Provider] - See Instructions
[2017-12-01] MEDS: Nortriptyline 10 MG Capsule PO SCH (22:39)
[2017-12-01] MEDS: Gabapentin 300 MG Capsule PO SCH (22:40)
[2017-12-01] MEDS: Pantoprazole Sodium 20 MG DR Tablet PO SCH (22:41)
[2017-12-01] MEDS: diazePAM 5 MG Tablet PO PRN (23:44)
[2017-12-02] MEDS: predniSONE 10 MG Tablet PO SCH (09:40)
[2017-12-02] MEDS: Baclofen 10 MG Tablet PO SCH ×4 (09:41→22:57)
[2017-12-02] MEDS: Senna/Docusate Sodium 8.6/50 MG Tablet PO SCH ×2 (09:41→22:57)
[2017-12-02] MEDS: Calcium/Vitamin D 250/125 MG Tablet PO SCH (09:41)
[2017-12-02] MEDS: Ascorbic Acid 500 MG Tablet PO SCH (09:42)
[2017-12-02] MEDS: Calcium Acetate 667 MG Capsule PO SCH ×3 (09:42→17:34)
[2017-12-02] MEDS: Insulin Detemir Inj 1,000 UNIT/10 ML Vial SQ SCH ×2 (09:43→22:58)
[2017-12-02] MEDS: Insulin NovoLOG Aspart Correctional Sugar Inj SQ SCH ×4 (09:43→22:58)
[2017-12-02] MEDS: Gabapentin 100 MG Capsule PO SCH ×2 (09:44→22:55)
[2017-12-02] MEDS: Gabapentin 300 MG Capsule PO SCH (22:55)
[2017-12-02] MEDS: Nortriptyline 10 MG Capsule PO SCH (22:56)
[2017-12-02] MEDS: Pantoprazole Sodium 20 MG DR Tablet PO SCH (22:56)
[2017-12-03] MEDS: Insulin Detemir Inj 1,000 UNIT/10 ML Vial SQ SCH ×2 (06:35→22:23)
[2017-12-03] MEDS: Insulin NovoLOG Aspart Correctional Sugar Inj SQ SCH ×4 (08:54→22:22)
[2017-12-03] MEDS: Gabapentin 100 MG Capsule PO SCH ×2 (08:56→21:39)
[2017-12-03] MEDS: Baclofen 10 MG Tablet PO SCH ×4 (08:56→21:39)
[2017-12-03] MEDS: Ascorbic Acid 500 MG Tablet PO SCH (08:56)
[2017-12-03] MEDS: Senna/Docusate Sodium 8.6/50 MG Tablet PO SCH ×2 (08:56→21:39)
[2017-12-03] MEDS: Sulfamethoxazole/Trimethoprim 400/80 MG Tablet PO SCH (08:56)
[2017-12-03] MEDS: Calcium Acetate 667 MG Capsule PO SCH ×3 (08:56→18:37)
[2017-12-03] MEDS: predniSONE 10 MG Tablet PO SCH (08:57)
[2017-12-03] MEDS: Calcium/Vitamin D 250/125 MG Tablet PO SCH (08:57)
[2017-12-03] MEDS ORDERED: Naproxen 500 MG Tablet PO ONE (15:01)
[2017-12-03] MEDS: Pantoprazole Sodium 20 MG DR Tablet PO SCH (21:39)
[2017-12-03] MEDS: Nortriptyline 10 MG Capsule PO SCH (21:39)
[2017-12-03] MEDS: Naproxen 500 MG Tablet PO SCH (21:40)
[2017-12-03] MEDS: Gabapentin 300 MG Capsule PO SCH (21:40)
[2017-12-04] MEDS: Insulin Detemir Inj 1,000 UNIT/10 ML Vial SQ SCH ×2 (08:47→23:08)
[2017-12-04] MEDS: Calcium/Vitamin D 250/125 MG Tablet PO SCH (08:48)
[2017-12-04] MEDS: Calcium Acetate 667 MG Capsule PO SCH ×3 (08:48→18:19)
[2017-12-04] MEDS: predniSONE 10 MG Tablet PO SCH (08:49)
[2017-12-04] MEDS: Ascorbic Acid 500 MG Tablet PO SCH (08:49)
[2017-12-04] MEDS: Senna/Docusate Sodium 8.6/50 MG Tablet PO SCH ×2 (08:49→22:38)
[2017-12-04] MEDS: Naproxen 500 MG Tablet PO SCH ×2 (08:50→22:37)
[2017-12-04] MEDS: Gabapentin 100 MG Capsule PO SCH ×2 (08:50→22:37)
[2017-12-04] MEDS: Baclofen 10 MG Tablet PO SCH ×4 (08:50→22:37)
[2017-12-04] MEDS: Insulin NovoLOG Aspart Correctional Sugar Inj SQ SCH ×4 (08:51→23:09)
[2017-12-04] MEDS: Nortriptyline 10 MG Capsule PO SCH (22:38)
[2017-12-04] MEDS: Pantoprazole Sodium 20 MG DR Tablet PO SCH (22:38)
[2017-12-04] MEDS: Gabapentin 300 MG Capsule PO SCH (22:38)
[2017-12-05] MEDS: predniSONE 10 MG Tablet PO SCH (08:47)
[2017-12-05] MEDS: Baclofen 10 MG Tablet PO SCH ×4 (08:48→21:11)
[2017-12-05] MEDS: Calcium/Vitamin D 250/125 MG Tablet PO SCH (08:48)
[2017-12-05] MEDS: Naproxen 500 MG Tablet PO SCH ×2 (08:48→21:12)
[2017-12-05] MEDS: Calcium Acetate 667 MG Capsule PO SCH ×3 (08:48→17:46)
[2017-12-05] MEDS: Senna/Docusate Sodium 8.6/50 MG Tablet PO SCH ×2 (08:48→21:12)
[2017-12-05] MEDS: Ascorbic Acid 500 MG Tablet PO SCH (08:49)
[2017-12-05] MEDS: Gabapentin 100 MG Capsule PO SCH ×2 (08:49→21:11)
[2017-12-05] MEDS: Insulin Detemir Inj 1,000 UNIT/10 ML Vial SQ SCH ×2 (08:50→21:39)
[2017-12-05] MEDS: Insulin NovoLOG Aspart Correctional Sugar Inj SQ SCH ×4 (08:50→21:40)
[2017-12-05] MEDS: Artificial Tears Opth Drops 15 ML Bottle EACH EYE PRN (15:31)
[2017-12-05] MEDS: Gabapentin 300 MG Capsule PO SCH (21:11)
[2017-12-05] MEDS: Nortriptyline 10 MG Capsule PO SCH (21:12)
[2017-12-06] MEDS: Insulin Detemir Inj 1,000 UNIT/10 ML Vial SQ SCH ×2 (08:54→21:48)
[2017-12-06] MEDS: Insulin NovoLOG Aspart Correctional Sugar Inj SQ SCH ×4 (08:55→21:47)
[2017-12-06] MEDS: Senna/Docusate Sodium 8.6/50 MG Tablet PO SCH ×2 (09:05→21:46)
[2017-12-06] MEDS: Sulfamethoxazole/Trimethoprim 400/80 MG Tablet PO SCH (09:05)
[2017-12-06] MEDS: Ascorbic Acid 500 MG Tablet PO SCH (09:05)
[2017-12-06] MEDS: Calcium/Vitamin D 250/125 MG Tablet PO SCH (09:05)
[2017-12-06] MEDS: Calcium Acetate 667 MG Capsule PO SCH ×3 (09:05→17:27)
[2017-12-06] MEDS: Baclofen 10 MG Tablet PO SCH ×4 (09:05→21:45)
[2017-12-06] MEDS: predniSONE 10 MG Tablet PO SCH (09:06)
[2017-12-06] MEDS: Gabapentin 100 MG Capsule PO SCH ×2 (09:07→21:46)
[2017-12-06] MEDS: Nortriptyline 10 MG Capsule PO SCH (21:44)
[2017-12-06] MEDS: Gabapentin 300 MG Capsule PO SCH (21:45)
[2017-12-07] MEDS: Insulin Detemir Inj 1,000 UNIT/10 ML Vial SQ SCH ×2 (09:38→21:49)
[2017-12-07] MEDS: Calcium/Vitamin D 250/125 MG Tablet PO SCH (09:39)
[2017-12-07] MEDS: Calcium Acetate 667 MG Capsule PO SCH ×3 (09:39→17:15)
[2017-12-07] MEDS: Insulin NovoLOG Aspart Correctional Sugar Inj SQ SCH ×4 (09:39→21:50)
[2017-12-07] MEDS: Ascorbic Acid 500 MG Tablet PO SCH (09:40)
[2017-12-07] MEDS: predniSONE 10 MG Tablet PO SCH (09:40)
[2017-12-07] MEDS: Baclofen 10 MG Tablet PO SCH ×4 (09:40→21:49)
[2017-12-07] MEDS: Senna/Docusate Sodium 8.6/50 MG Tablet PO SCH ×2 (09:40→21:49)
[2017-12-07] MEDS: Gabapentin 100 MG Capsule PO SCH ×2 (09:40→21:49)
[2017-12-07] MEDS: Gabapentin 300 MG Capsule PO SCH (21:49)
[2017-12-07] MEDS: Nortriptyline 10 MG Capsule PO SCH (21:54)
[2017-12-08] MEDS: Insulin Detemir Inj 1,000 UNIT/10 ML Vial SQ SCH ×2 (06:51→22:22)
[2017-12-08 07:23] LABS: Baso % (Auto) 0.3 % (0.0-2.0); Eos # (Auto) 0.1 th/mm3 (0.0-0.4); Eos % (Auto) 1.2 % (0.0-4.0); Hematocrit 36.5 % (35.0-46.0); Hemoglobin 11.8 gm/dL (11.6-15.3); Lymph # (Auto) 3.2 th/mm3 (1.0-4.8); Lymph % (Auto) 41.7 % (9.0-44.0); Mean Corpuscular HGB Conc 32.2 % (32.0-36.0); Mean Corpuscular Hemoglobin 26.8 pg (27.0-34.0); Mean Corpuscular Volume 83.1 fL (80.0-100.0); Mean Platelet Volume 9.5 fL (7.0-11.0); Mono # (Auto) 0.6 th/mm3 (0.0-0.9); Neut # (Auto) 3.7 th/mm3 (1.8-7.7); Neut % (Auto) 48.8 % (16.0-70.0); Platelet Count 219 th/mm3 (150-450); Red Blood Count 4.39 mil/mm3 (4.00-5.30); Red Cell Distribution Width 16.5 % (11.6-17.2); White Blood Count 7.7 th/mm3 (4.0-11.0)
[2017-12-08 07:41] LABS: Albumin 3.3 g/dL (3.4-5.0); Anion Gap 11 meq/L (5-15); Aspartate Aminotransferase 11 U/L (15-37); Blood Urea Nitrogen 10 mg/dL (7-18); Calcium 9.7 mg/dL (8.5-10.1); Carbon Dioxide 26.5 meq/L (21.0-32.0); Chloride 105 meq/L (98-107); Glomerular Filtration Rate Greater Than 89 mL/min (>89); Glucose,Random 103 mg/dL (74-106); Potassium 3.7 meq/L (3.5-5.1); Sodium 142 meq/L (136-145)
[2017-12-08 07:42] LABS: Alanine Aminotransferase 24 U/L (10-53); Phosphorus 3.4 mg/dL (2.5-4.9)
[2017-12-08 07:44] LABS: Alkaline Phosphatase 68 U/L (45-117); Total Protein 6.9 g/dL (6.4-8.2)
--- NOTE | 2017-12-08 08:59 | P.PNIM ---
Physical Exam Vital signs: Vital Signs 12/07/17 12:00 12/07/17 16:00 12/07/17 20:00 Temperature 98 F 98 F 97.6 F Pulse Rate 79 79 78 Respiratory Rate 20 20 18 Blood Pressure 113/71 101/73 130/79 Pulse Oximetry 100 100 100 12/08/17 00:00 12/08/17 04:00 Temperature 98.0 F 98.6 F Pulse Rate 73 76 Respiratory Rate 18 18 Blood Pressure 139/66 140/79 Pulse Oximetry 100 100 Intake & Output 12/07/17 12/08/17 12/08/17 18:59 06:59 18:59 Intake Total 800 / 800 Output Total 1100 / 1100 2600 / 2600 Balance -1100 / -1100 -1800 / -1800 Weight 117.6 kg Intake: Oral 800 / 800 Output: Urine 1100 / 1100 1600 / 1600 Urine Amount (Catheter) 1000 / 1000 Suprapubic 1000 / 1000 Other: # Bowel Movements 1 Narrative: GENERAL: This is a well-nourished, well-developed patient, in no apparent distress. SKIN: Warm and dry. HEENT: Normocephalic. Nose without bleeding. Airway patent. NECK: Trachea midline. CARDIOVASCULAR: Regular rate and rhythm without murmurs, gallops, or rubs. RESPIRATORY: Clear to auscultation. Breath sounds equal bilaterally. No wheezes , rales, or rhonchi. GASTROINTESTINAL: Abdomen soft, non-tender, nondistended. Bowel Sounds normoactive x4. MUSCULOSKELETAL: Extremities without clubbing, cyanosis, or edema. NEUROLOGICAL: Awake and alert. Oriented to time, place, person. Motor and sensory grossly within normal limits. Normal speech. - Urinary Catheter Management Suprapubic Cath placed during this visit: no Reason for continuing: Chronic Urinary Retention Results - Labs CBC & Chem 7: 12/08/17 06:45 12/08/17 06:45 Laboratory Results - last 24 hr 12/07/17 12/07/17 12/07/17 09:18 12:00 16:23 WBC RBC Hgb Hct MCV MCH MCHC RDW Plt Count MPV Neut % (Auto) Lymph % (Auto) [place] % (Auto) Eos % (Auto) Baso % (Auto) Neut # (Auto) Lymph # (Auto) [place] # (Auto) Eos # (Auto) Baso # (Auto) WBC Differential Differential Comment Sodium Potassium Chloride Carbon Dioxide Anion Gap BUN Creatinine Estimated GFR POC Glucose 187 H 208 H 282 H Random Glucose Calcium Phosphorus Magnesium Total Bilirubin AST ALT Alkaline Phosphatase Total Protein Albumin 12/07/17 12/08/17 12/08/17 20:42 04:43 06:45 WBC 7.7 RBC 4.39 Hgb 11.8 Hct 36.5 MCV 83.1 MCH 26.8 L MCHC 32.2 RDW 16.5 Plt Count 219 MPV 9.5 Neut % (Auto) 48.8 Lymph % (Auto) 41.7 [place] % (Auto) 8.0 Eos % (Auto) 1.2 Baso % (Auto) 0.3 Neut # (Auto) 3.7 Lymph # (Auto) 3.2 [place] # (Auto) 0.6 Eos # (Auto) 0.1 Baso # (Auto) 0.0 WBC Differential . Differential Comment Auto diff final Sodium Potassium Chloride Carbon Dioxide Anion Gap BUN Creatinine Estimated GFR POC Glucose 198 H 131 H Random Glucose Calcium Phosphorus Magnesium Total Bilirubin AST ALT Alkaline Phosphatase Total Protein Albumin 12/08/17 12/08/17 06:45 08:16 WBC RBC Hgb Hct MCV MCH MCHC RDW Plt Count MPV Neut % (Auto) Lymph % (Auto) [place] % (Auto) Eos % (Auto) Baso % (Auto) Neut # (Auto) Lymph # (Auto) [place] # (Auto) Eos # (Auto) Baso # (Auto) WBC Differential Differential Comment Sodium 142 Potassium 3.7 Chloride 105 Carbon Dioxide 26.5 Anion Gap 11 BUN 10 Creatinine 0.43 L Estimated GFR Greater than 89 POC Glucose 106 Random Glucose 103 Calcium 9.7 Phosphorus 3.4 Magnesium 2.0 Total Bilirubin 0.5 AST 11 L ALT 24 Alkaline Phosphatase 68 Total Protein 6.9 Albumin 3.3 L - Procedures none Assessment and Plan - Assessment (1) Neuromyelitis optica Code(s): G36.0 - Neuromyelitis optica [Devic] Status: Acute (2) Pulmonary embolism Code(s): I26.99 - Other pulmonary embolism without acute cor pulmonale Status : Acute (3) DM type 2 (diabetes mellitus, type 2) Code(s): E11.9 - Type 2 diabetes mellitus without complications Status: Acute - Plan 47-year-old female with a history of diabetes, 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 Neuromyelitis optica, transverse myelitis, paraplegia -Returned from [facility] following a one-month stay there. -Continue prednisone 30mg daily, CellCept for 6 months. -Bactrim Wednesday/Wednesday/Wednesday prophylactically. -Appreciate neurology, hematology recommendations. -Continue physical therapy, Occupational Therapy. Diabetes mellitus, insulin-dependent -HgA1C 7.9 (10/05/17) -Blood glucose uncontrolled, possibly related to steroid use - On Levemir 32 units in the morning and 40 units at night with sliding scale insulin and prandial NovoLog. BGs have been mildly high, increase Levemir to 36 units in the morning Hypertension, chronic essential -Continue metoprolol. Anemia of chronic disease - H&H are stable and no further hematuria Pulmonary embolus -Eliquis previously has been stopped due to bleeding around suprapubic site -Eliquis resumed Neurogenic bladder Urinary retention -Suprapubic catheter in place. Appreciate urology recommendations. -Suprapubic catheter exchange and upsizing 11/14 Constipation -Bowel regimen. Continue Senokot daily. DVT prophylaxis Eliquis Full Code Discharge planning: on [facility], awaiting placement
[2017-12-08] MEDS: Calcium/Vitamin D 250/125 MG Tablet PO SCH (09:02)
[2017-12-08] MEDS: Sulfamethoxazole/Trimethoprim 400/80 MG Tablet PO SCH (09:03)
[2017-12-08] MEDS: Gabapentin 100 MG Capsule PO SCH ×2 (09:04→21:45)
[2017-12-08] MEDS: Baclofen 10 MG Tablet PO SCH ×4 (09:05→21:45)
[2017-12-08] MEDS: predniSONE 10 MG Tablet PO SCH (09:05)
[2017-12-08] MEDS: Ascorbic Acid 500 MG Tablet PO SCH (09:05)
[2017-12-08] MEDS: Senna/Docusate Sodium 8.6/50 MG Tablet PO SCH ×2 (09:06→21:46)
[2017-12-08] MEDS: Calcium Acetate 667 MG Capsule PO SCH ×3 (09:19→17:57)
[2017-12-08] MEDS: Insulin NovoLOG Aspart Correctional Sugar Inj SQ SCH ×4 (09:43→22:21)
[2017-12-08] MEDS: Gabapentin 300 MG Capsule PO SCH (21:45)
[2017-12-08] MEDS: Nortriptyline 10 MG Capsule PO SCH (21:46)
[2017-12-09] MEDS: Ascorbic Acid 500 MG Tablet PO SCH (09:04)
[2017-12-09] MEDS: Calcium Acetate 667 MG Capsule PO SCH ×3 (09:05→18:26)
[2017-12-09] MEDS: Senna/Docusate Sodium 8.6/50 MG Tablet PO SCH ×2 (09:05→21:58)
[2017-12-09] MEDS: Calcium/Vitamin D 250/125 MG Tablet PO SCH (09:06)
[2017-12-09] MEDS: predniSONE 10 MG Tablet PO SCH (09:06)
[2017-12-09] MEDS: Baclofen 10 MG Tablet PO SCH ×4 (09:06→21:56)
[2017-12-09] MEDS: Gabapentin 100 MG Capsule PO SCH ×2 (09:08→21:58)
[2017-12-09] MEDS: Insulin Detemir Inj 1,000 UNIT/10 ML Vial SQ SCH ×2 (10:25→21:55)
[2017-12-09] MEDS: Insulin NovoLOG Aspart Correctional Sugar Inj SQ SCH ×4 (10:40→21:56)
[2017-12-09] MEDS: Gabapentin 300 MG Capsule PO SCH (21:59)
[2017-12-09] MEDS: Nortriptyline 10 MG Capsule PO SCH (21:59)
[2017-12-10] MEDS: Insulin Detemir Inj 1,000 UNIT/10 ML Vial SQ SCH ×2 (06:48→22:40)
[2017-12-10] MEDS: Calcium Acetate 667 MG Capsule PO SCH ×3 (09:01→18:17)
[2017-12-10] MEDS: Ascorbic Acid 500 MG Tablet PO SCH (09:02)
[2017-12-10] MEDS: Baclofen 10 MG Tablet PO SCH ×4 (09:03→22:40)
[2017-12-10] MEDS: predniSONE 10 MG Tablet PO SCH (09:03)
[2017-12-10] MEDS: Sulfamethoxazole/Trimethoprim 400/80 MG Tablet PO SCH (09:03)
[2017-12-10] MEDS: Senna/Docusate Sodium 8.6/50 MG Tablet PO SCH ×2 (09:03→22:42)
[2017-12-10] MEDS: Calcium/Vitamin D 250/125 MG Tablet PO SCH (09:03)
[2017-12-10] MEDS: Gabapentin 100 MG Capsule PO SCH ×2 (09:04→22:41)
[2017-12-10] MEDS: Insulin NovoLOG Aspart Correctional Sugar Inj SQ SCH (22:37)
[2017-12-10] MEDS: Gabapentin 300 MG Capsule PO SCH (22:41)
[2017-12-10] MEDS: Nortriptyline 10 MG Capsule PO SCH (22:41)
[2017-12-11] MEDS: Insulin Detemir Inj 1,000 UNIT/10 ML Vial SQ SCH ×2 (06:29→21:35)
[2017-12-11] MEDS: diazePAM 5 MG Tablet PO PRN (06:29)
[2017-12-11] MEDS: Gabapentin 100 MG Capsule PO SCH ×2 (08:02→21:28)
[2017-12-11] MEDS: Calcium Acetate 667 MG Capsule PO SCH ×3 (08:02→17:46)
[2017-12-11] MEDS: Ascorbic Acid 500 MG Tablet PO SCH (08:03)
[2017-12-11] MEDS: predniSONE 10 MG Tablet PO SCH (08:03)
[2017-12-11] MEDS: Baclofen 10 MG Tablet PO SCH ×4 (08:04→21:27)
[2017-12-11] MEDS: Calcium/Vitamin D 250/125 MG Tablet PO SCH (08:04)
[2017-12-11] MEDS: Senna/Docusate Sodium 8.6/50 MG Tablet PO SCH ×2 (08:05→21:29)
[2017-12-11] MEDS: Insulin NovoLOG Aspart Correctional Sugar Inj SQ SCH ×4 (08:10→21:36)
[2017-12-11] MEDS: Nortriptyline 10 MG Capsule PO SCH (21:27)
[2017-12-11] MEDS: Gabapentin 300 MG Capsule PO SCH (21:28)
[2017-12-12] MEDS: Insulin Detemir Inj 1,000 UNIT/10 ML Vial SQ SCH ×2 (06:45→20:54)
[2017-12-12] MEDS: Calcium/Vitamin D 250/125 MG Tablet PO SCH (08:56)
[2017-12-12] MEDS: Baclofen 10 MG Tablet PO SCH ×4 (08:56→20:40)
[2017-12-12] MEDS: Senna/Docusate Sodium 8.6/50 MG Tablet PO SCH ×2 (08:56→20:41)
[2017-12-12] MEDS: Calcium Acetate 667 MG Capsule PO SCH ×3 (08:56→17:35)
[2017-12-12] MEDS: Gabapentin 100 MG Capsule PO SCH ×2 (08:57→20:40)
[2017-12-12] MEDS: predniSONE 10 MG Tablet PO SCH (08:57)
[2017-12-12] MEDS: Ascorbic Acid 500 MG Tablet PO SCH (08:57)
[2017-12-12] MEDS: Insulin NovoLOG Aspart Correctional Sugar Inj SQ SCH ×4 (08:58→20:53)
[2017-12-12] MEDS: diazePAM 5 MG Tablet PO PRN (15:39)
[2017-12-12] MEDS: Nortriptyline 10 MG Capsule PO SCH (20:40)
[2017-12-12] MEDS: Gabapentin 300 MG Capsule PO SCH (20:40)
[2017-12-13] MEDS: Insulin Detemir Inj 1,000 UNIT/10 ML Vial SQ SCH ×2 (06:49→21:41)
[2017-12-13] MEDS: Ascorbic Acid 500 MG Tablet PO SCH (09:11)
[2017-12-13] MEDS: predniSONE 10 MG Tablet PO SCH (09:11)
[2017-12-13] MEDS: Gabapentin 100 MG Capsule PO SCH ×2 (09:12→21:41)
[2017-12-13] MEDS: Calcium/Vitamin D 250/125 MG Tablet PO SCH (09:12)
[2017-12-13] MEDS: Baclofen 10 MG Tablet PO SCH ×4 (09:12→21:40)
[2017-12-13] MEDS: Sulfamethoxazole/Trimethoprim 400/80 MG Tablet PO SCH (09:13)
[2017-12-13] MEDS: Insulin NovoLOG Aspart Correctional Sugar Inj SQ SCH ×3 (09:13→17:59)
[2017-12-13] MEDS: Calcium Acetate 667 MG Capsule PO SCH ×3 (09:13→17:58)
[2017-12-13] MEDS: Senna/Docusate Sodium 8.6/50 MG Tablet PO SCH ×2 (09:14→21:40)
[2017-12-13] MEDS: Gabapentin 300 MG Capsule PO SCH (21:40)
[2017-12-13] MEDS: Nortriptyline 10 MG Capsule PO SCH (21:40)
[2017-12-13] MEDS: diazePAM 5 MG Tablet PO PRN (21:40)
[2017-12-14] MEDS: Insulin NovoLOG Aspart Correctional Sugar Inj SQ SCH ×5 (04:36→22:32)
[2017-12-14] MEDS: Insulin Detemir Inj 1,000 UNIT/10 ML Vial SQ SCH ×2 (06:59→22:31)
[2017-12-14] MEDS: predniSONE 10 MG Tablet PO SCH (09:19)
[2017-12-14] MEDS: Baclofen 10 MG Tablet PO SCH ×4 (09:19→22:29)
[2017-12-14] MEDS: Ascorbic Acid 500 MG Tablet PO SCH (09:19)
[2017-12-14] MEDS: Calcium/Vitamin D 250/125 MG Tablet PO SCH (09:19)
[2017-12-14] MEDS: Calcium Acetate 667 MG Capsule PO SCH ×3 (09:19→17:32)
[2017-12-14] MEDS: Senna/Docusate Sodium 8.6/50 MG Tablet PO SCH ×2 (09:20→22:29)
[2017-12-14] MEDS: Gabapentin 100 MG Capsule PO SCH ×2 (09:20→22:31)
--- NOTE | 2017-12-14 17:43 | P.PN ---
Subjective Interval history: awake and alert no complains of headaches, nausea or vomiting feels uipper back-- across the shulder blades - "tight" good po appetiite up on WC daily- very motivated with exercises feels that she cannot feel anything with her hands- Physical Exam Vital signs: Vital Signs 12/13/17 21:50 12/14/17 00:00 12/14/17 05:00 Temperature 98.9 F 98 F 97.9 F Pulse Rate 80 88 67 Respiratory Rate 17 18 22 Blood Pressure 120/67 128/66 118/64 Pulse Oximetry 98 99 100 12/14/17 08:00 12/14/17 12:00 12/14/17 16:00 Temperature 98.3 F 98.1 F 98.4 F Pulse Rate 82 97 H 86 Respiratory Rate 21 20 21 Blood Pressure 115/71 117/62 125/61 Pulse Oximetry 98 100 100 Intake & Output 12/13/17 12/14/17 12/14/17 18:59 06:59 18:59 Intake Total 1900 / 1900 Output Total 1100 / 1100 2800 / 2800 Balance -1100 / -1100 -900 / -900 Weight 117 kg Intake: Oral 1900 / 1900 Output: Urine 1100 / 1100 2800 / 2800 Other: Date of Last Bowel Movement 12/12/17 12/12/17 12/14/17 # Bowel Movements 0 Narrative: awake and alert, oriented x 3, speech clear, no distress This is a well- nourished, well-developed patient, in no apparent distress. SKIN: Warm and dry. HEENT: Normocephalic. Nose without bleeding. Airway patent. NECK: Trachea midline. CARDIOVASCULAR: Regular rate and rhythm without murmurs, gallops, or rubs. RESPIRATORY: Clear to auscultation. Breath sounds equal bilaterally. No wheezes , rales, or rhonchi. GASTROINTESTINAL: Abdomen soft, non-tender, nondistended. Bowel Sounds normoactive x4. suprapubic catheter in place MUSCULOSKELETAL: Extremities without clubbing, cyanosis, or edema. NEUROLOGICAL: CN intact neck supple able to express and moves both upper extremities /arms when talking- and expressing herself patient states can't feel anything with her hands- good pulses LE- motor 0/5- but goes into spastic withdrawals - Urinary Catheter Management Suprapubic Cath placed during this visit: no Reason for continuing: Other continuation reason Results - Labs CBC & Chem 7: 12/08/17 06:45 12/08/17 06:45 Laboratory Results - last 24 hr 12/13/17 12/14/17 12/14/17 20:32 07:53 11:55 POC Glucose 147 H 110 192 H 12/14/17 16:33 POC Glucose 196 H - Procedures none Assessment and Plan - Assessment (1) Neuromyelitis optica Code(s): G36.0 - Neuromyelitis optica [Devic] Status: Acute (2) Pulmonary embolism Code(s): I26.99 - Other pulmonary embolism without acute cor pulmonale Status : Acute (3) DM type 2 (diabetes mellitus, type 2) Code(s): E11.9 - Type 2 diabetes mellitus without complications Status: Acute - Plan 47-year-old female with a history of diabetes, 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 Neuromyelitis optica, transverse myelitis, paraplegia NEw complains that she is unable to feel with her hands- on exam able to move both UE- in expressing herself - subjectively "can't feel"- we will reconsult neurology -Returned from [facility] following a one-month stay there. -Continue prednisone 30mg daily, CellCept for 6 months. -Bactrim Wednesday/Wednesday/Wednesday prophylactically. -Continue physical therapy, Occupational Therapy.- call PT will reconsult Neurology- Dr. Blancas and defer to him - regarding ordering imaging studies Diabetes mellitus, insulin-dependent -HgA1C 7.9 (10/05/17) -Blood glucose uncontrolled, possibly related to steroid use - On Levemir 32 units in the morning and 40 units at night with sliding scale insulin and prandial NovoLog. BGs have been mildly high, increase Levemir to 36 units in the morning Hypertension, chronic essential -Continue metoprolol. Anemia of chronic disease - H&H are stable and no further hematuria Pulmonary embolus -Eliquis previously has been stopped due to bleeding around suprapubic site -Eliquis resumed Neurogenic bladder Urinary retention -Suprapubic catheter in place. Appreciate urology recommendations. -Suprapubic catheter exchange and upsizing 11/14 consult IR for suprapubic change Constipation -Bowel regimen. Continue Senokot daily. DVT prophylaxis Eliquis Full Code
[2017-12-14] MEDS: diazePAM 5 MG Tablet PO PRN (22:29)
[2017-12-14] MEDS: Gabapentin 300 MG Capsule PO SCH (22:30)
[2017-12-14] MEDS: Nortriptyline 10 MG Capsule PO SCH (22:30)
[2017-12-15] MEDS: Insulin Detemir Inj 1,000 UNIT/10 ML Vial SQ SCH ×2 (06:11→21:11)
[2017-12-15] MEDS: Sulfamethoxazole/Trimethoprim 400/80 MG Tablet PO SCH (10:05)
[2017-12-15] MEDS: predniSONE 10 MG Tablet PO SCH (10:05)
[2017-12-15] MEDS: Ascorbic Acid 500 MG Tablet PO SCH (10:05)
[2017-12-15] MEDS: Senna/Docusate Sodium 8.6/50 MG Tablet PO SCH ×2 (10:06→21:09)
[2017-12-15] MEDS: Baclofen 10 MG Tablet PO SCH ×4 (10:06→21:09)
[2017-12-15] MEDS: Calcium Acetate 667 MG Capsule PO SCH ×3 (10:06→17:55)
[2017-12-15] MEDS: Calcium/Vitamin D 250/125 MG Tablet PO SCH (10:07)
[2017-12-15] MEDS: Gabapentin 100 MG Capsule PO SCH ×2 (10:07→21:10)
[2017-12-15] MEDS: Insulin NovoLOG Aspart Correctional Sugar Inj SQ SCH ×4 (10:08→21:25)
--- NOTE | 2017-12-15 12:30 | P.CONNEU ---
History of Present Illness Service: Neurology Consult date: 12/15/17 Reason for Consult: UE numbness, hx NMO Primary Care Provider: Suzette Mccarthy Chief Complaint: hand numbness History of Present Illness: 47 y/o female initially presented in May 2017 with numbness/tingling/weakness and paralysis of lower extremities. She was found to have a sensory motor paraplegia and transferred to [facility] and was dx'd with NMO. She was readmitted 10/05 with worsening numbness and bowel/bladder incontinence and numbness in her upper extremities. She was transferred to [facility] and received PLEX and steroids. A suprapubic catheter was also placed for neurogenic bladder. Currently on Cell Cept and Prednisone, which they recommended continuing x 6 mo. She had been working with therapy and had been doing well. She has been awaiting transfer to nursing facility. She is working with therapy. Wednesday she notes that she began noticing numbness/tingling in bilateral arms, hands and across her shoulder blades. She is still able to use her hands but cannot feel anything. She denies pain. She notes some difficulty with shortness of breath as she feels her back and chest feel tight when she breathes. No dysphagia. Denies any changes in sensation in her neck or face. No change in speech. She has not had any changes in her legs in terms of weakness, at times she does feel sensation has slightly improved. Review of Systems All other systems reviewed negative except as stated in HPI PMFSH - History History Provided By: Patient - Medical / Surgical Hx Neg / Unobtainable Medical Problems Denied: Yes - Tobacco History Tobacco Use In Past 30 Days: No Smoking Status: Unknown if ever smoked Medications and Allergies Allergies Allergy/AdvReac Type Severity Reaction Status Date / Time No Known Allergies Allergy Verified 11/20/17 10:18 Home Medications Medication Instructions Recorded Confirmed Type acetaminophen [Tylenol] 650 mg PO Q4H PRN 11/20/17 11/20/17 History apixaban [Eliquis] 10 mg PO BID 11/20/17 11/20/17 History ascorbic acid (vitamin C) 250 mg PO DAILY 11/20/17 11/20/17 History baclofen 10 mg PO QID 11/20/17 11/20/17 History baclofen 20 mg PO QID 11/20/17 11/20/17 History baclofen 30 mg PO QID 11/20/17 11/20/17 History calcium acetate 667 mg PO TID 11/20/17 11/20/17 History calcium carbonate-vitamin D3 1 tab PO DAILY 11/20/17 11/20/17 History [Os-Karson 500 + D3] cholecalciferol (vitamin D3) 1,000 units PO DAILY NEB 11/20/17 11/20/17 History cholecalciferol (vitamin D3) 400 units PO DAILY 11/20/17 11/20/17 History diazepam 5 mg PO Q8H PRN 11/20/17 11/20/17 History diphenhydramine HCl 25 mg PO Q6H PRN 11/20/17 11/20/17 History diphenhydramine-zinc acetate 1 applic TOPICAL TID PRN 11/20/17 11/20/17 History docusate sodium 100 mg PO DAILY PRN 11/20/17 11/20/17 History gabapentin 200 mg PO BID 11/20/17 11/20/17 History gabapentin 300 mg PO HS 11/20/17 11/20/17 History glyburide 5 mg PO BID 11/20/17 11/20/17 History insulin detemir U-100 [Levemir 30 unit SUB-Q Q24H 11/20/17 11/20/17 History U-100 Insulin] insulin regular human [Novolin R 1 unit SUB-Q DIRECTED 11/20/17 11/20/17 History Regular U-100 Insuln] insulin regular human [Novolin R 13 unit SUB-Q TIDAC 11/20/17 11/20/17 History Regular U-100 Insuln] metoprolol succinate 25 mg PO DAILY 11/20/17 11/20/17 History mycophenolate mofetil [CellCept] 500 mg PO BID 11/20/17 11/20/17 History nortriptyline 10 mg PO HS 11/20/17 11/20/17 History oxycodone 5 mg PO Q4H PRN 11/20/17 11/20/17 History pantoprazole [Protonix] 20 mg PO DAILY 11/20/17 11/20/17 History pantoprazole [Protonix] 40 mg PO DAILY 11/20/17 11/20/17 History potassium chloride 30 meq PO DAILY 11/20/17 11/20/17 History pravastatin 40 mg PO HS 11/20/17 11/20/17 History prednisone 30 mg PO DAILY 11/20/17 11/20/17 History propylene glycol-glycerin 1 - 2 drop OPHTHALMIC (EYE) PRN 11/20/17 11/20/17 History sennosides 8.6 mg PO HS 11/20/17 11/20/17 History sulfamethoxazole-trimethoprim 1 tab PO DIRECTED 11/20/17 11/20/17 History Active Medications: Active Medications Acetaminophen (Tylenol) 650 mg PO Q4H PRN PRN Reason: TEMP>100.4 Al Hydroxide/Mg Hydroxide (Milk Of Magnesia Liq) 30 ml PO Q12H PRN PRN Reason: Mild Constipation Apixaban (Eliquis) 10 mg PO BID [facility] Last Admin: 12/15/17 10:06 Dose: 10 mg Artificial Tears (Tears Naturale Opth Drops) 2 drop EACH EYE Q4H PRN PRN Reason: DRY EYES Last Admin: 12/05/17 15:31 Dose: 2 drop Ascorbic Acid (Vitamin C) 250 mg PO DAILY [facility] Last Admin: 12/15/17 10:05 Dose: 250 mg Baclofen (Lioresal) 30 mg PO QID [facility] Last Admin: 12/15/17 10:06 Dose: 30 mg Bisacodyl (Dulcolax Supp) 10 mg RECTAL DAILY PRN PRN Reason: SEVERE CONSITIPATION Last Admin: 11/28/17 14:17 Dose: 10 mg Calcium Acetate (Phoslo) 667 mg PO TIDAC [facility] Last Admin: 12/15/17 10:06 Dose: 667 mg Calcium/Vitamin D (Oscal With D 250/125 Mg) 2 tab PO DAILY [facility] Last Admin: 12/15/17 10:07 Dose: 1 tab Clonidine HCl (Catapres) 0.1 mg PO Q6H PRN PRN Reason: SBP>160, DBP>90 Dextrose (D50w Vial) 50 ml IV.PUSH UNSCH PRN PRN Reason: PER HYPOGLYCEMIA PROTOCOL Diazepam (Valium) 5 mg PO Q8H PRN PRN Reason: MUSCLE SPASM Last Admin: 12/14/17 22:29 Dose: 5 mg Diphenhydramine HCl (Benadryl Liq) 25 mg PO Q6H PRN PRN Reason: ITCHING Docusate Sodium (Colace) 100 mg PO DAILY PRN PRN Reason: CONSTIPATION Last Admin: 11/28/17 14:17 Dose: 100 mg Gabapentin (Neurontin) 200 mg PO BID [facility] Last Admin: 12/15/17 10:07 Dose: 200 mg Gabapentin (Neurontin) 300 mg PO HS [facility] Last Admin: 12/14/17 22:30 Dose: 300 mg Glucagon (Glucagon Inj) 1 mg OTHER PRN PRN PRN Reason: for Hypoglycemia Protocol Insulin Aspart (Novolog Inj) 16 units SQ TIDAC [facility] Last Admin: 12/15/17 10:07 Dose: 16 units Insulin Aspart (Novolog Insulin Correctional Sugar Inj) 0 unit SQ ACHS [facility]; Protocol Last Admin: 12/15/17 10:08 Dose: Not Given Insulin Detemir (Levemir Inj) 40 unit SQ HS [facility] Last Admin: 12/14/17 22:31 Dose: 40 unit Insulin Detemir (Levemir Inj) 36 unit SQ AC BREAKFAST [facility] Last Admin: 12/15/17 06:11 Dose: 36 unit Lactulose (Lactulose Liq) 30 ml PO DAILY PRN PRN Reason: SEVERE CONSITIPATION Metoprolol Succinate (Toprol Xl) 25 mg PO DAILY [facility] Last Admin: 12/15/17 10:05 Dose: 25 mg Mycophenolate Mofetil (Cellcept) 500 mg PO BID@0600,1800 [facility] Last Admin: 12/15/17 06:11 Dose: 500 mg Naloxone HCl (Narcan Inj) 0.4 mg IV.PUSH UNSCH PRN PRN Reason: SEE LABEL COMMENTS Nortriptyline HCl (Pamelor) 10 mg PO [facility] Last Admin: 12/14/17 22:30 Dose: 10 mg Oxycodone HCl (Roxicodone) 5 mg PO Q4H PRN PRN Reason: PAIN 6-10 Last Admin: 12/15/17 10:16 Dose: 5 mg Pantoprazole Sodium (Protonix) 40 mg PO DAILY [facility] Last Admin: 12/15/17 10:06 Dose: 40 mg Potassium Chloride (Klor-Con 10) 30 meq PO DAILY [facility] Last Admin: 12/15/17 10:06 Dose: 30 meq Pravastatin Sodium (Pravachol) 40 mg PO HS [facility] Last Admin: 12/14/17 22:30 Dose: 40 mg Prednisone (Deltasone) 30 mg PO DAILY [facility] Last Admin: 12/15/17 10:05 Dose: 30 mg Senna/Docusate Sodium (Jesusita-Colace) 1 tab PO BID [facility] Last Admin: 12/15/17 10:06 Dose: 1 tab Sodium Chloride (Ns Flush) 2 ml IV.FLUSH UNSCH PRN PRN Reason: FLUSH AFTER USING IV ACCESS Last Admin: 11/25/17 22:12 Dose: 2 ml Sodium Chloride (Ns Flush) 2 ml IV.FLUSH BID [facility] Last Admin: 12/15/17 10:08 Dose: 2 ml Trimethoprim/Sulfamethoxazole (Bactrim) 1 tab PO MoWeFr@0900 [facility] Last Admin: 12/15/17 10:05 Dose: 1 tab Vitamin D (Vitamin D3) 1,000 unit PO DAILY [facility] Last Admin: 12/15/17 10:05 Dose: 1,000 unit Exam Vital signs: Vital Signs 12/14/17 16:00 12/14/17 20:00 12/14/17 22:15 Temperature 98.4 F 98.3 F Pulse Rate 86 81 Respiratory Rate 21 18 19 Blood Pressure 125/61 157/85 H Pulse Oximetry 100 100 12/15/17 00:45 12/15/17 04:00 Temperature 98.3 F 98.8 F Pulse Rate 80 78 Respiratory Rate 18 16 Blood Pressure 120/67 114/66 Pulse Oximetry 100 100 Intake & Output 12/14/17 12/15/17 12/15/17 18:59 06:59 18:59 Intake Total 3400 / 3400 Output Total 6800 / 6800 1000 / 1000 Balance -3400 / -3400 -1000 / -1000 Weight 117 kg Intake: Oral 3400 / 3400 Output: Urine Amount (Catheter) 6800 / 6800 1000 / 1000 Suprapubic 6800 / 6800 1000 / 1000 Other: Date of Last Bowel Movement 12/14/17 12/14/17 # Bowel Movements 0 # Incontinent Bowel Movements 1 - Constitutional no acute distress - Routine HEENT Exam Head: Present: normocephalic Eye: Present: EOMI, PERRL - Routine Cardiovascular Exam Present: RRR - Routine Neurological Exam Present: alert, oriented X3, CN II-XII intact alert and orient x 3, 0/5 legs, 3-4/5 uppers, decreased to light touch in arms, legs, hands, neg tinels, decreased to light touch across upper back, 1+ reflex uppers, lower extremities in boots and SCD, has difficulty with f-n-f, no drift Results - Labs CBC & Chem 7: 12/08/17 06:45 12/08/17 06:45 Labs: Laboratory Results - last 24 hr 12/14/17 12/14/17 12/15/17 16:33 20:29 04:07 POC Glucose 196 H 185 H 141 H 12/15/17 07:43 POC Glucose 118 H Review/Management - Review/Management Plan: will check MRI C and T spine w/wo contrast check UA continue steroids and cellcept will consult hematology regarding plasma exchange and rituxin infusions Daily Summary: MD note agree w/above pt to continue cellcept and prednisone will obtain mri c and t spine w/wo cmp h/o eval for apheresis and consider rituxin if pt has progressed. can always go up on cellcept.
--- NOTE | 2017-12-15 13:06 | P.PN ---
Subjective Interval history: went for suprapubic cath exchange Physical Exam Vital signs: Vital Signs 12/14/17 16:00 12/14/17 20:00 12/14/17 22:15 Temperature 98.4 F 98.3 F Pulse Rate 86 81 Respiratory Rate 21 18 19 Blood Pressure 125/61 157/85 H Pulse Oximetry 100 100 12/15/17 00:45 12/15/17 04:00 12/15/17 08:00 Temperature 98.3 F 98.8 F 98.5 F Pulse Rate 80 78 81 Respiratory Rate 18 16 18 Blood Pressure 120/67 114/66 116/71 Pulse Oximetry 100 100 99 12/15/17 12:00 Temperature 98.6 F Pulse Rate 80 Respiratory Rate 19 Blood Pressure 120/70 Pulse Oximetry 100 Intake & Output 12/14/17 12/15/17 12/15/17 18:59 06:59 18:59 Intake Total 3400 / 3400 Output Total 6800 / 6800 1000 / 1000 Balance -3400 / -3400 -1000 / -1000 Weight 117 kg Intake: Oral 3400 / 3400 Output: Urine Amount (Catheter) 6800 / 6800 1000 / 1000 Suprapubic 6800 / 6800 1000 / 1000 Other: Date of Last Bowel Movement 12/14/17 12/14/17 # Bowel Movements 0 # Incontinent Bowel Movements 1 Narrative: awake and alert, oriented x 3, speech clear, no distress This is a well- nourished, well-developed patient, in no apparent distress. SKIN: Warm and dry. HEENT: Normocephalic. Nose without bleeding. Airway patent. NECK: Trachea midline. CARDIOVASCULAR: Regular rate and rhythm without murmurs, gallops, or rubs. RESPIRATORY: Clear to auscultation. Breath sounds equal bilaterally. No wheezes , rales, or rhonchi. GASTROINTESTINAL: Abdomen soft, non-tender, nondistended. Bowel Sounds normoactive x4. suprapubic catheter in place MUSCULOSKELETAL: Extremities without clubbing, cyanosis, or edema. NEUROLOGICAL: CN intact neck supple able to express and moves both upper extremities /arms when talking- and expressing herself patient states can't feel anything with her hands- good pulses LE- motor 0/5- but goes into spastic withdrawals - Urinary Catheter Management Suprapubic Cath placed during this visit: no Reason for continuing: Terminally ill/Comfort care Results - Labs CBC & Chem 7: 12/08/17 06:45 12/08/17 06:45 Laboratory Results - last 24 hr 12/14/17 12/14/17 12/15/17 16:33 20:29 04:07 POC Glucose 196 H 185 H 141 H 12/15/17 07:43 POC Glucose 118 H - Procedures none Assessment and Plan - Assessment (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 Neuromyelitis optica, transverse myelitis, paraplegia NEw complains that she is unable to feel with her hands- on exam able to move both UE- in expressing herself - subjectively "can't feel"- -Returned from [facility] following a one-month stay there. -Continue prednisone 30mg daily, CellCept for 6 months. -Bactrim Wednesday/Wednesday/Wednesday prophylactically. -Continue physical therapy, Occupational Therapy.- call PT appreciate Neurology seeing patient- MRI spines ordered Hematology consulted for plamapheresis Diabetes mellitus, insulin-dependent -HgA1C 7.9 (10/05/17) -Blood glucose uncontrolled, possibly related to steroid use - On Levemir 32 units in the morning and 40 units at night with sliding scale insulin and prandial NovoLog. BGs have been mildly high, increased Levemir to 36 units in the morning Hypertension, chronic essential -Continue metoprolol. Anemia of chronic disease - H&H are stable and no further hematuria Pulmonary embolus -Eliquis previously has been stopped due to bleeding around suprapubic site -Eliquis resumed Neurogenic bladder Urinary retention -Suprapubic catheter in place. Appreciate urology recommendations. -Suprapubic catheter exchange and upsizing 11/14 - SC cahnged today 12/15 Constipation -Bowel regimen. Continue Senokot daily. DVT prophylaxis Eliquis Full Code
[2017-12-15] MEDS ORDERED: Iohexol 350 MG/ML 50 ML Vial (for Rad Diag) IVCONTRAST ONE (13:11)
--- NOTE | 2017-12-15 13:21 | P.RAD ---
Post Procedure Progress Note - Pre Procedure Diagnosis (1) Bladder dysfunction - Post Procedure Diagnosis (1) Bladder dysfunction - Procedure Information Supervising Radiologist: Abraham Navarro MD Anesthesia: Local - Plan of Activity Patient to Unit: Nursing Unit See PACS Report for procedural detail/treatment. Drainage Procedure Fluoroscopy Suprapubic Tube Exchange Tajik Tube Size: 22 Fluid Description: Clear
--- NOTE | 2017-12-15 13:40 | IR ---
EXAM DATE: 12/15/2017 1:20 PM EDT AGE/SEX: 47 years / Female INDICATIONS: Patient with history of neuromyelitis optica resulting in neurogenic bladder in need of suprapubic tube exchange. CLINICAL DATA: This is the patient's initial encounter. Patient reports that signs and symptoms have been present for 3 months and indicates a pain score of 0/10. MEDICAL/SURGICAL HISTORY: Anemia. DVT, Neuromyelitis optica. Appendectomy. Suprapubic tube patience cement, X 3, vascular catheter placement and removal. COMPARISON: No prior exams available for comparison. FLUORO TIME (min): 0.6 IMAGE SERIES: 2 CONTRAST (cc): 10 Omnipaque (iohexol) 350 MEDICATION(S): DEVICE(S): 22 [place] . . PROCEDURE: 1. Suprapubic catheter change. 2. Conscious sedation with continuous EKG and oximetry monitoring. The risks, benefits and alternatives to the procedure were explained and verbal and written consent w as obtained. The site was prepped in sterile fashion. Full sterile technique was used, including cap, mask, steril e gloves and gown and a large sterile sheet. Hand hygiene and 2% chlorhexidine and/or betadine/alcoho l prep was utilized per protocol for cutaneous antisepsis. The skin and subcutaneous tissues were infiltrated with local anes thetic solution. A guidewire was placed through the existing catheter and over this the prescribed catheter was placed in the bladder. Positive contrast was injected to confirm position. Conscious sedation was performed with the prescribed dosages and duration as above in the presence of an independent trained radiology nurse to assist in the monitoring of the patient. EKG and oximetry remained stable throughout the procedure. The patient tolerated the procedure well and there were no complications. The patient was sent to post anesthesia recovery in stable condition. CONCLUSION: 1. Uncomplicated suprapubic catheter exchange. Electronically signed by: Abraham Navarro MD 12/15/2017 1:38 PM EDT
--- NOTE | 2017-12-15 15:11 | MR ---
EXAM DATE: 12/15/2017 2:59 PM EDT AGE/SEX: 47 years / Female INDICATIONS: Pain. Paraplegia due to transverse myelitis. CLINICAL DATA: This is the patient's subsequent encounter. Patient reports that signs and symptoms h ave been present for 3 months and indicates a pain score of 4/10. MEDICAL/SURGICAL HISTORY: . Transverse myelitis. Appendectomy. section. suprapubic c atheter. [place] [facility] [place]04/2017. . TECHNIQUE: Multiplanar, multisequence MRI of the thoracic spine was performed without and with 10 ml Gadavist (gadobutrol) contrast as a single exam dose. FINDINGS: Vertebrae: Normal vertebral body height. Homogeneous marrow signal. Alignment: Normal. Cord: Normal position and configuration. No significant focal signal abnormality identified. Post Contrast: No abnormal areas of enhancement are seen in the cord, dural or paraspinal regions. T1-T2: The thecal sac has a normal diameter. No evidence of disc bulge or protrusion. T2-T3: The thecal sac has a normal diameter. No evidence of disc bulge or protrusion. T3-T4: The thecal sac has a normal diameter. No evidence of disc bulge or protrusion. T4-T5: The thecal sac has a normal diameter. No evidence of disc bulge or protrusion. T5-T6: The thecal sac has a normal diameter. No evidence of disc bulge or protrusion. T6-T7: The thecal sac has a normal diameter. No evidence of disc bulge or protrusion. T7-T8: The thecal sac has a normal diameter. No evidence of disc bulge or protrusion. T8-T9: The thecal sac has a normal diameter. No evidence of disc bulge or protrusion. T9-T10: The thecal sac has a normal diameter. No evidence of disc bulge or protrusion. T10-T11: The thecal sac has a normal diameter. No evidence of disc bulge or protrusion. T11-T12: The thecal sac has a normal diameter. No evidence of disc bulge or protrusion. T12-L1: The thecal sac has a normal diameter. No evidence of disc bulge or protrusion. 1. No significant change compared to the previous examination dated 10/04/2017. 2. No significant or enhancement or signal abnormality identified. Electronically signed by: Simon Catherine MD 12/15/2017 3:10 PM EDT
--- NOTE | 2017-12-15 15:17 | MR ---
EXAM DATE: 12/15/2017 2:46 PM EDT AGE/SEX: 47 years / Female INDICATIONS: Pain. Paraplegia due to transverse myelitis. Pain in upper spine affecting both arms . CLINICAL DATA: This is the patient's subsequent encounter. Patient reports that signs and symptoms h ave been present for 3 months and indicates a pain score of 4/10. MEDICAL/SURGICAL HISTORY: . Transverse myelitis. section. Appendectomy. COMPARISON: [facility] [place] CERVICAL SPINE W & W/O CONTRAST, 10/04/2017. . TECHNIQUE: Multiplanar, multisequence MRI examination of the cervical spine was performed without an d with 10 ml Gadavist (gadobutrol) contrast as a single exam dose. FINDINGS: Vertebrae: Normal vertebral body height. Homogeneous marrow signal. Alignment: Normal. Cord: There is diffuse T2 signal hyperintensity throughout the cervical cord from the upper most por tion of the C2 level to the T1 level. There has been decrease in the diffuse signal compared to the p revious examination in September 2017 as well as significantly decreased diameter/swelling of the cervical cord compared to that study. No enhancement of the cervical cord is noted on today's examination. Post Fossa: The cerebellar tonsils are normal in position. Post Contrast: No abnormal areas of enhancement are seen. C2-C3: The thecal sac has a normal configuration. There is no evidence of disc herniation or spinal canal stenosis. The neural foramina are patent bilaterally. C3-C4: The thecal sac has a normal configuration. There is no evidence of disc herniation or spinal canal stenosis. The neural foramina are patent bilaterally. C4-C5: The thecal sac has a normal configuration. There is no evidence of disc herniation or spinal canal stenosis. The neural foramina are patent bilaterally. C5-C6: The thecal sac has a normal configuration. There is no evidence of disc herniation or spinal canal stenosis. The neural foramina are patent bilaterally. C6-C7: There is a mild diffuse disc bulge which results in slight effacement of the anterior thecal sac and minimal spinal stenosis. Mild bilateral foraminal narrowing is noted. No focal disc herniatio n is noted. C7-T1: No epidural impressions seen. 1. Diffuse T2 signal hyperintensity throughout the cervical cord from the upper most portion of the C2 level to the T1 level. There has been decrease in the diffuse signal compared to the previous exam ination in September 2017 as well as significantly decreased diameter/swelling of the cervical cord compare d to that study. No enhancement of the cervical cord is noted on today's examination. 2. Mild spinal stenosis and bilateral foraminal narrowing at C6-7 predominantly related to mild diff use disc bulge. Electronically signed by: Simon Catherine MD 12/15/2017 3:16 PM EDT
[2017-12-15 15:44] LABS: Bilirubin,Urine Negative (Negative); Clarity,Urine Clear (Clear); Color,Urine Yellow (Yellw/Straw); Glucose,Urine (UA) Negative (Negative); Leukocyte Esterase,Urine Negative (Negative); Nitrite,Urine Negative (Negative); Specific Gravity,Urine 1.019 (1.002-1.035); Squamous Epithelial Cell,Urine <1 /hpf (0-5)
[2017-12-15] MEDS ORDERED: Gadobutrol PF 10 MMOL/10 ML Vial (for RAD) IV.SIG ONE (15:57)
[2017-12-15] MEDS: diazePAM 5 MG Tablet PO PRN (21:09)
[2017-12-15] MEDS: Nortriptyline 10 MG Capsule PO SCH (21:09)
[2017-12-15] MEDS: Gabapentin 300 MG Capsule PO SCH (21:10)
--- NOTE | 2017-12-16 00:48 | MB ---
cc: Ebony Conrad MD,Homar Estrella,Karrie Houston,Chino DUNHAM DATE: 12/15/2017 DATE: 12/15/2017 REFERRING PHYSICIAN: Homar Baxter MD CHIEF COMPLAINT: Dr. Baxter requested a consultation for Ms. Friedman regarding plasmapheresis for exacerbation of neuromyelitis optica. HISTORY OF PRESENT ILLNESS: Ms. Friedman is a 47-year-old woman, well known patient to Dr. Chino Houston from her previous hospitalization on 10/04/2017. She presented with numbness, weakness and paralysis of the lower extremity. She was evaluated at [facility] and was diagnosed with neuromyelitis optica. She received Rituxan therapy. The next dose of Rituxan is apparently due in December. This is on a q.6 month maintenance treatment. She is on immunosuppression with CellCept and steroids. She was pheresed while at [facility]. She was transferred back on 11/10/2017. She is known to me post her transfer. Her course is complicated by neurogenic bladder, for which a suprapubic catheter is placed. She remained at [facility] with continued occupational therapy and physical therapy. She was pending a transfer to a [facility] facility in [place] to be closer to her family. A facility has not been able to accept her as of yet. Over the weekend, she reports developing acute worsening and numbness of her upper extremity. Neurology was consulted. She was seen by Dr. Estrella and [facility] Faith. Additional imaging was performed including the thoracic MRI, which showed no significant change compared to previous, and cervical spine MRI, which showed T2 signal hyperintensity but there is a decrease in the diffuse signal compared to previous examination. There is significant decrease in diameter and swelling of the cervical cord compared to the previous study. There is no enhancement of the cervical cord on today's exam. There is mild spinal stenosis and bilateral foraminal narrowing at C6-C7. The results and these were reviewed with Dr. Estrella. In conclusion, she is felt to have exacerbation of her disease and, hematology/oncology is consulted for plasmapheresis. REVIEW OF SYSTEMS: She has no changes in her legs. She is still unable to move them. She has a history of venous thromboembolic events for which she is on Eliquis. There is some hematuria that needed interruption of her anticoagulation, but she is back on her Eliquis. This will be placed on hold for her catheter placement. Additional laboratory findings showed a mild anemia, which actually was improving and resolved at the time of the consultation. Her last comprehensive metabolic panel from 12/08/2017 was normal. PAST MEDICAL HISTORY: Neuromyelitis optica, history of iron deficiency anemia, resolved, history of deep vein thromboses, chronic dry eyes. PAST SURGICAL HISTORY: Appendectomy, x 3, Vas-Cath placement and removal, PICC line placement, inferior vena cava filter placement, suprapubic catheter placement. FAMILY HISTORY: Mother has arthritis. Father had gout. There is no family history of autoimmune disorder or malignancy. SOCIAL HISTORY: She is disabled. She denies any alcohol, tobacco or illicit drug use. She is originally from [place] and is trying to transfer to the [facility]. ALLERGIES: NO KNOWN DRUG ALLERGIES. MEDICATIONS: 1. Apixaban. 2. Artificial tears. 3. Ascorbic acid. 4. Baclofen. 5. Bisacodyl. 6. Calcium. 7. Vitamin D. 8. Cholecalciferol. 9. Clonidine. 10. Diazepam. 11. Docusate. 12. Gabapentin. 14. Glucagon. 15. Insulin. 16. Lactulose. 17. Magnesium. 18. Metoprolol. 19. Mycophenolate/CellCept 20. Nortriptyline. 21. Oxycodone. 22. Pantoprazole. 23. Potassium. 24. Pravastatin. 26. Prednisone. 27. Senna. 28. Bactrim. PHYSICAL EXAMINATION: VITAL SIGNS: Temperature 98.3, heart rate 107, respiratory rate 19, blood pressure 113/73, saturation 96%. GENERAL: Ms. Friedman is a pleasant, well-developed woman in no acute distress. She is awake, alert and responsive. HEENT: Pupils are round, reactive to light and accommodation. Oropharynx is clear. NECK: Supple. There is a keloid scar from previous Vas-Cath placement at the right neck base. LUNGS: Clear anteriorly. CARDIOVASCULAR: Reveals mild tachycardia. ABDOMEN: Large. Suprapubic catheter in place. EXTREMITIES: Lower extremity with atrophy. Hot and cold sensation intact. Supportive boot in place. LABS: As described above. ASSESSMENT AND PLAN: Ms. Friedman is a 47-year-old woman with neuromyelitis optica. Hematology-Oncology is consulted for exacerbation of symptoms. She is on immunosuppression and has previously had treatment with Rituxan. I discussed at length with Ms. Friedman the plan for plasmapheresis. She will need a pheresis catheter. Discussed with Dr. Estrella the chronic nature of her condition. We will proceed with a catheter placement with a double lumen PermCath for pheresis. We will arrange for plasmapheresis the following day, once a catheter is in place. Her apixaban will be placed on hold. We will monitor closely for bleeding. Neurologic symptoms are being monitored. Her immunosuppressive medications are managed by neurology. Rituximab therapy is given every 6 months, per protocol by [facility]; generally not done concurrently with plasmapheresis. Ms. Friedman's questions were answered to her satisfaction. In anticipation of a possible Rituxan therapy, her quantitative immunoglobulins will be checked beforehand. Her questions were answered to her satisfaction. The case was discussed with Dr. Estrella. MD KRUPA Mcgrath/kt/doe , 07:42 PM , 07:57 PM
[2017-12-16 01:06] LABS: Alanine Aminotransferase 22 U/L (10-53); Albumin 3.4 g/dL (3.4-5.0); Anion Gap 7 meq/L (5-15); Aspartate Aminotransferase 9 U/L (15-37); Blood Urea Nitrogen 12 mg/dL (7-18); Calcium 8.9 mg/dL (8.5-10.1); Carbon Dioxide 29.6 meq/L (21.0-32.0); Chloride 104 meq/L (98-107); Glomerular Filtration Rate Greater Than 89 mL/min (>89); Glucose,Random 140 mg/dL (74-106); Sodium 141 meq/L (136-145)
[2017-12-16 01:08] LABS: Alkaline Phosphatase 64 U/L (45-117); Total Protein 6.9 g/dL (6.4-8.2)
[2017-12-16] MEDS: Insulin Detemir Inj 1,000 UNIT/10 ML Vial SQ SCH ×2 (06:11→22:36)
[2017-12-16] MEDS ORDERED: Vancomycin Inj 1 GM/200 ML PIGGYBACK IV.SIG SCH (09:00)
[2017-12-16] MEDS ORDERED: ceFAZolin 2 GM Premix Inj 2 GM/50 ML PIGGYBACK IV.SIG SCH (09:00)
[2017-12-16] MEDS: Insulin NovoLOG Aspart Correctional Sugar Inj SQ SCH ×4 (09:09→23:27)
[2017-12-16] MEDS: Calcium/Vitamin D 250/125 MG Tablet PO SCH (09:10)
[2017-12-16] MEDS: Calcium Acetate 667 MG Capsule PO SCH ×3 (09:10→17:30)
[2017-12-16] MEDS: Ascorbic Acid 500 MG Tablet PO SCH (09:11)
[2017-12-16] MEDS: Baclofen 10 MG Tablet PO SCH ×4 (09:11→22:36)
[2017-12-16] MEDS: predniSONE 10 MG Tablet PO SCH (09:11)
[2017-12-16] MEDS: Gabapentin 100 MG Capsule PO SCH ×2 (09:12→22:36)
[2017-12-16] MEDS: Senna/Docusate Sodium 8.6/50 MG Tablet PO SCH ×2 (09:12→22:36)
--- NOTE | 2017-12-16 11:02 | P.PN ---
Subjective Interval history: Lower extremities- no change in strength noheadahces, nausea or vomiting UE- moving more- but same decrease sensory sensation Physical Exam Vital signs: Vital Signs 12/15/17 12:00 12/15/17 16:00 12/15/17 20:00 Temperature 98.6 F 98.3 F 98.5 F Pulse Rate 80 107 H 89 Respiratory Rate 19 19 16 Blood Pressure 120/70 113/73 108/59 L Pulse Oximetry 100 100 99 12/16/17 02:14 12/16/17 08:45 Temperature 98.6 F 98.4 F Pulse Rate 88 84 Respiratory Rate 18 18 Blood Pressure 117/62 116/69 Pulse Oximetry 96 99 Intake & Output 12/15/17 12/16/17 12/16/17 18:59 06:59 18:59 Intake Total 1100 / 1100 800 / 800 Output Total 2000 / 2000 Balance -900 / -900 800 / 800 Weight 117.8 kg Intake: Oral 1100 / 1100 800 / 800 Output: Urine 1000 / 1000 Urine Amount (Catheter) 1000 / 1000 Suprapubic 1000 / 1000 Other: Date of Last Bowel Movement 12/14/17 12/15/17 # Bowel Movements 1 Narrative: awake and alert, oriented x 3, speech clear, no distress SKIN: Warm and dry. HEENT: Normocephalic. Nose without bleeding. Airway patent. NECK: Trachea midline. CARDIOVASCULAR: Regular rhythm . RESPIRATORY: Clear to auscultation. Breath sounds equal bilaterally. GASTROINTESTINAL: Abdomen soft, non-tender, nondistended. Bowel Sounds normoactive x4. suprapubic catheter in place MUSCULOSKELETAL: Extremities without clubbing, cyanosis, or edema. NEUROLOGICAL: CN intact neck supple able to moves both upper extremities more patient states can't feel anything with her hands still - good pulses LE- motor 0/5- but goes into spastic withdrawals - Urinary Catheter Management Suprapubic Cath placed during this visit: no Reason for continuing: Terminally ill/Comfort care Results - Labs CBC & Chem 7: 12/08/17 06:45 12/16/17 00:20 Laboratory Results - last 24 hr 12/15/17 12/15/17 12/15/17 15:04 15:15 17:18 Sodium Potassium Chloride Carbon Dioxide Anion Gap BUN Creatinine Estimated GFR POC Glucose 122 H 235 H Random Glucose Calcium Total Bilirubin AST ALT Alkaline Phosphatase Total Protein Albumin Urine Color Yellow Urine Clarity Clear Urine pH 8.0 Ur Specific [place] 1.019 Urine Protein Negative Urine Glucose (UA) Negative Urine Ketones Negative Urine Occult Blood Negative Urine Nitrate Negative Urine Bilirubin Negative Urine Urobilinogen Less than 2 Ur Leukocyte Esterase Negative Urine RBC 2 Urine WBC 5 Ur Squamous Epith Cells <1 Micro UA Comment Cath-culture not ind Urine Culture Comments Cath-cult not ind 12/15/17 12/16/17 12/16/17 20:42 00:20 08:14 Sodium 141 Potassium 4.0 Chloride 104 Carbon Dioxide 29.6 Anion Gap 7 BUN 12 Creatinine 0.69 Estimated GFR Greater than 89 POC Glucose 147 H 128 H Random Glucose 140 H Calcium 8.9 Total Bilirubin 0.5 AST 9 L ALT 22 Alkaline Phosphatase 64 Total Protein 6.9 Albumin 3.4 Urine Color Urine Clarity Urine pH Ur Specific [place] Urine Protein Urine Glucose (UA) Urine Ketones Urine Occult Blood Urine Nitrate Urine Bilirubin Urine Urobilinogen Ur Leukocyte Esterase Urine RBC Urine WBC Ur Squamous Epith Cells Micro UA Comment Urine Culture Comments - Imaging Impressions Cervical Spine MRI 12/15/17 00:00 CONCLUSION: Thoracic Spine MRI 12/15/17 00:00 CONCLUSION: Tube Change 12/15/17 00:00 CONCLUSION: 1. Uncomplicated suprapubic catheter exchange. 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 Neuromyelitis optica, transverse myelitis, paraplegia NEw complains that she is unable to feel with her hands- on exam able to move both UE- in expressing herself - subjectively "can't feel"- -Returned from [facility] following a one-month stay there. -Continue prednisone 30mg daily, CellCept for 6 months. -Bactrim Wednesday/Wednesday/Wednesday prophylactically. -Continue physical therapy, Occupational Therapy.- call PT appreciate Neurology seeing patient- MRI spines ordered Hematology ff - for plasmapheresis Permacath ordered- to be placed tomorrow - patient eliquis held for procedure Diabetes mellitus, insulin-dependent -HgA1C 7.9 (10/05/17) -Blood glucose uncontrolled, possibly related to steroid use - On Levemir 32 units in the morning and 40 units at night with sliding scale insulin and prandial NovoLog. BGs have been mildly high, increased Levemir to 36 units in the morning yesterday Hypertension, chronic essential -Continue metoprolol. Anemia of chronic disease - H&H are stable and no further hematuria Pulmonary embolus -Eliquis previously has been stopped due to bleeding around suprapubic site - resolved -Eliquis restarted - but held 12/15- paln for pem cath placement tomorrow for initiation of plasmapheresis Neurogenic bladder Urinary retention -Suprapubic catheter in place. Appreciate urology recommendations. -Suprapubic catheter exchange and upsizing 11/14 - SC changed 12/15 - routine care - and change q 4 weeks Constipation -Bowel regimen. Continue Senokot daily. will give x 1 Dulcolax supp today 12/16 DVT prophylaxis Eliquis Full Code
--- NOTE | 2017-12-16 17:28 | P.PNONC ---
Subjective Interval history: Oncology/hematology asked to see the patient to arrange plasma exchange. Patient reports stable symptoms, she is presently sitting on a bedside chair. She denies difficulty breathing or difficulty speaking. She has chronic numbness of the torso and near paralysis lower extremities. Objective Vital Signs/Intake & Output: Vital Signs 12/15/17 20:00 12/16/17 02:14 12/16/17 08:45 Temperature 98.5 F 98.6 F 98.4 F Pulse Rate 89 88 84 Respiratory Rate 16 18 18 Blood Pressure 108/59 L 117/62 116/69 Pulse Oximetry 99 96 99 12/16/17 12:53 Temperature 98.5 F Pulse Rate 89 Respiratory Rate 16 Blood Pressure 120/71 Pulse Oximetry 100 Intake & Output 12/15/17 12/16/17 12/16/17 18:59 06:59 18:59 Intake Total 1100 / 1100 800 / 800 Output Total 2000 / 2000 Balance -900 / -900 800 / 800 Weight 117.8 kg Intake: Oral 1100 / 1100 800 / 800 Output: Urine 1000 / 1000 Urine Amount (Catheter) 1000 / 1000 Suprapubic 1000 / 1000 Other: Date of Last Bowel Movement 12/14/17 12/15/17 # Bowel Movements 1 Result Diagrams: 12/08/17 06:45 12/16/17 00:20 Laboratory Results: Laboratory Results - last 24 hr 12/15/17 12/15/17 12/16/17 17:18 20:42 00:20 Sodium 141 Potassium 4.0 Chloride 104 Carbon Dioxide 29.6 Anion Gap 7 BUN 12 Creatinine 0.69 Estimated GFR Greater than 89 POC Glucose 235 H 147 H Random Glucose 140 H Calcium 8.9 Total Bilirubin 0.5 AST 9 L ALT 22 Alkaline Phosphatase 64 Total Protein 6.9 Albumin 3.4 12/16/17 12/16/17 12/16/17 08:14 12:08 17:03 Sodium Potassium Chloride Carbon Dioxide Anion Gap BUN Creatinine Estimated GFR POC Glucose 128 H 144 H 245 H Random Glucose Calcium Total Bilirubin AST ALT Alkaline Phosphatase Total Protein Albumin Medications: Active Medications Generic Name Dose Route Start Last Admin Trade Name Freq PRN Reason Stop Dose Admin Apixaban 10 mg 11/21/17 09:00 12/15/17 10:06 Eliquis PO 10 mg BID STAR Administration Artificial Tears 2 drop 11/21/17 00:01 12/05/17 15:31 Tears Naturale Opth Drops EACH EYE 2 drop Q4H PRN Administration DRY EYES Ascorbic Acid 250 mg 11/21/17 09:00 12/16/17 09:11 Vitamin C PO 250 mg DAILY STAR Administration Baclofen 30 mg 11/21/17 09:00 12/16/17 12:56 Lioresal PO 30 mg QID STAR Administration Bisacodyl 10 mg 11/28/17 09:59 11/28/17 14:17 Dulcolax Supp RECTAL 10 mg DAILY PRN Administration SEVERE CONSITIPATION Calcium Acetate 667 mg 11/21/17 08:00 12/16/17 12:57 Phoslo PO 667 mg TIDAC [facility] Administration Calcium/Vitamin D 2 tab 11/21/17 09:00 12/16/17 09:10 Oscal With D 250/125 Mg PO 2 tab DAILY STAR Administration Diazepam 5 mg 11/21/17 00:01 12/15/17 21:09 Valium PO 5 mg Q8H PRN Administration MUSCLE SPASM Docusate Sodium 100 mg 11/21/17 00:01 11/28/17 14:17 Colace PO 100 mg DAILY PRN Administration CONSTIPATION Gabapentin 200 mg 11/21/17 09:00 12/16/17 09:12 Neurontin PO 200 mg BID STAR Administration Gabapentin 300 mg 11/21/17 21:00 12/15/17 21:10 Neurontin PO 300 mg HS [facility] Administration Insulin Aspart 16 units 11/21/17 08:00 12/16/17 12:57 Novolog Inj SQ 16 units TIDAC STAR Administration Insulin Aspart 0 unit 12/11/17 21:30 12/16/17 12:57 Novolog Insulin Correctional Sugar Inj SQ Not Given ACHS [facility] Protocol Insulin Detemir 40 unit 11/22/17 21:00 12/15/17 21:11 Levemir Inj SQ 40 unit HS [facility] Administration Insulin Detemir 36 unit 12/09/17 07:00 12/16/17 06:11 Levemir Inj SQ 36 unit AC BREAKFAST [facility] Administration Metoprolol Succinate 25 mg 11/21/17 09:00 12/16/17 09:12 Toprol Xl PO 25 mg DAILY STAR Administration Mycophenolate Mofetil 500 mg 11/21/17 06:00 12/16/17 06:11 Cellcept PO 500 mg BID@0600,1800 ST[facility] Administration Nortriptyline HCl 10 mg 11/21/17 21:00 12/15/17 21:09 Pamelor PO 10 mg HS STAR Administration Oxycodone HCl 5 mg 11/21/17 00:01 12/16/17 15:30 Roxicodone PO 5 mg Q4H PRN Administration PAIN 6-10 Pantoprazole Sodium 40 mg 11/21/17 09:00 12/16/17 09:10 Protonix PO 40 mg DAILY STAR Administration Potassium Chloride 30 meq 11/21/17 09:00 12/16/17 09:10 Klor-Con 10 PO 30 meq DAILY STAR Administration Pravastatin Sodium 40 mg 11/21/17 21:00 12/15/17 21:10 Pravachol PO 40 mg HS STAR Administration Prednisone 30 mg 11/21/17 09:00 12/16/17 09:11 Deltasone PO 30 mg DAILY STAR Administration Senna/Docusate Sodium 1 tab 11/28/17 11:00 12/16/17 09:12 Jesusita-Colace PO 1 tab BID STAR Administration Sodium Chloride 2 ml 11/21/17 00:01 11/25/17 22:12 Ns Flush IV.FLUSH 2 ml UNSCH PRN Administration FLUSH AFTER USING IV ACCESS Sodium Chloride 2 ml 11/21/17 09:00 12/16/17 09:12 Ns Flush IV.FLUSH 2 ml BID STAR Administration Trimethoprim/Sulfamethoxazole 1 tab 11/22/17 09:00 12/15/17 10:05 Bactrim PO 1 tab MoWeFr@0900 STAR Administration Vitamin D 1,000 unit 11/21/17 09:00 12/16/17 09:12 Vitamin D3 PO 1,000 unit DAILY STAR Administration Objective Remarks: GENERAL: Chronically ill appearing middle-aged female, sitting up on a bedside chair, she is not acutely distressed. SKIN: Warm and dry. HEAD: Normocephalic. EYES: No scleral icterus. No injection or drainage conjunctivae are pale sclerae anicteric. NECK: Supple, trachea midline. No JVD or lymphadenopathy. LYMPHATIC: No adenopathy. CARDIOVASCULAR: Regular rate and rhythm without murmurs. RESPIRATORY: Poor inspiratory effort, decreased bibasilar breath sounds breath sounds equal bilaterally. No accessory muscle use. GASTROINTESTINAL: Abdomen soft, non-tender, nondistended. EXTREMITIES: No cyanosis, or edema. MUSCULOSKELETAL: Atrophic musculature. NEUROLOGICAL: Weakness of the upper extremities, paralysis lower extremities, decreased sensation from the mid chest down. PSYCHIATRIC: Appropriate mood and affect; insight and judgment normal. Assessment/Plan - Plan Ms. Friedman is a 47-year-old female with a diagnosis of neuromyelitis optica , transverse myelitis and resultant paraplegia. She has been on treatment with immunosuppression therapy with CellCept and rituximab and for flareups she receives plasma exchange treatments. The hematology service has been asked to see her to facilitate a pheresis. The patient tells me she feels stable and does not feel as if her disease is flaring up at this time. She is not certain a plasma exchange is needed. Her MRI of the cervical and thoracic spine indicates stable to improved finding especially in the cervical spine region. I did communicate the patient's concern with the Dr. Estrella of neurology. Dr. Estrella has suggested holding off plasma exchange given the patient's stable symptoms at this time, she will reevaluate the patient on 12/17/2017 and at that time we will make a decision about plasma exchange treatments. The hematology service and the inpatient dialysis service will remain on standby. The patient will require Vas-Cath for plasma exchange and therefore if we are able to get an answer early tomorrow this would help facilitate placement of Vas-Cath before the weekend.
[2017-12-16] MEDS: Nortriptyline 10 MG Capsule PO SCH (22:36)
[2017-12-16] MEDS: Gabapentin 300 MG Capsule PO SCH (22:36)
[2017-12-17] MEDS: Insulin Detemir Inj 1,000 UNIT/10 ML Vial SQ SCH ×2 (06:15→22:01)
--- NOTE | 2017-12-17 09:29 | P.PN ---
Subjective Interval history: pt states she gets tingling in fingers and palm.some more sensation in arms and chest region.No new weakness in arms legs unchanged. Physical Exam Vital signs: Vital Signs 12/16/17 12:53 12/16/17 20:00 12/17/17 05:37 Temperature 98.5 F 98.2 F 98 F Pulse Rate 89 85 65 Respiratory Rate 16 18 18 Blood Pressure 120/71 133/84 135/65 Pulse Oximetry 100 99 99 Intake & Output 12/16/17 12/17/17 12/17/17 18:59 06:59 18:59 Intake Total 800 / 800 Output Total 2300 / 2300 Balance 800 / 800 -2300 / -2300 Weight 116.4 kg Intake: Oral 800 / 800 Output: Urine 2300 / 2300 Other: Date of Last Bowel Movement 12/15/17 12/16/17 Narrative: awake alert fluent perrla motor ue mild weakness but overall good strength brisk dtrs in ue can feel LT,t and vibration. LE no change in paresis gait unable to ambulate uses wheelchair. - Urinary Catheter Management Suprapubic Cath placed during this visit: no Reason for continuing: Terminally ill/Comfort care Results - Labs CBC & Chem 7: 12/08/17 06:45 12/16/17 00:20 Laboratory Results - last 24 hr 12/16/17 12/16/17 12/16/17 12:08 17:03 20:55 POC Glucose 144 H 245 H 234 H 12/17/17 12/17/17 05:09 07:49 POC Glucose 134 H 110 - Procedures none Assessment and Plan - Plan will not initiate PLEX as pt is stable and mri does not show any worsening.Pt agrees and does not want PLEX either. cont steroids,cellcept,increased gabapentin 300mg tid.Rituxin due next month. pt/ot/st
[2017-12-17] MEDS: Baclofen 10 MG Tablet PO SCH ×4 (10:32→22:01)
[2017-12-17] MEDS: Calcium/Vitamin D 250/125 MG Tablet PO SCH (10:33)
[2017-12-17] MEDS: Sulfamethoxazole/Trimethoprim 400/80 MG Tablet PO SCH (10:34)
[2017-12-17] MEDS: predniSONE 10 MG Tablet PO SCH (10:34)
[2017-12-17] MEDS: Calcium Acetate 667 MG Capsule PO SCH ×3 (10:35→17:47)
[2017-12-17] MEDS: Ascorbic Acid 500 MG Tablet PO SCH (10:36)
[2017-12-17] MEDS: Senna/Docusate Sodium 8.6/50 MG Tablet PO SCH ×2 (10:37→22:02)
[2017-12-17] MEDS: Insulin NovoLOG Aspart Correctional Sugar Inj SQ SCH ×4 (10:46→22:01)
--- NOTE | 2017-12-17 11:12 | P.PN ---
Subjective Interval history: both UE- mesh cutter much stronger no change in LE strength no headaches, nausea or vomiting + BM day before Physical Exam Vital signs: Vital Signs 12/16/17 12:53 12/16/17 20:00 12/17/17 05:37 Temperature 98.5 F 98.2 F 98 F Pulse Rate 89 85 65 Respiratory Rate 16 18 18 Blood Pressure 120/71 133/84 135/65 Pulse Oximetry 100 99 99 Intake & Output 12/16/17 12/17/17 12/17/17 18:59 06:59 18:59 Intake Total 800 / 800 Output Total 2300 / 2300 Balance 800 / 800 -2300 / -2300 Weight 116.4 kg Intake: Oral 800 / 800 Output: Urine 2300 / 2300 Other: Date of Last Bowel Movement 12/15/17 12/16/17 Narrative: awake alert, speech clear lungs- clear regular rhythm motor ue strength 4+/5 today can feel LT,t and vibration. LE no change in paresis, no calf swelling or leg swelling gait unable to ambulate gets around with wheelchair - Urinary Catheter Management Suprapubic Cath placed during this visit: no Reason for continuing: Terminally ill/Comfort care Results - Labs CBC & Chem 7: 12/08/17 06:45 12/16/17 00:20 Laboratory Results - last 24 hr 12/16/17 12/16/17 12/16/17 12:08 17:03 20:55 POC Glucose 144 H 245 H 234 H 12/17/17 12/17/17 05:09 07:49 POC Glucose 134 H 110 - Procedures none Assessment and Plan - Assessment (1) Neuromyelitis optica Code(s): G36.0 - Neuromyelitis optica [Devic] Status: Acute (2) Pulmonary embolism Code(s): I26.99 - Other pulmonary embolism without acute cor pulmonale Status : Acute (3) DM type 2 (diabetes mellitus, type 2) Code(s): E11.9 - Type 2 diabetes mellitus without complications Status: Acute - Plan 47-year-old female with a history of diabetes, 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 Neuromyelitis optica, transverse myelitis, paraplegia NEw complains that she is unable to feel with her hands- on exam able to move both UE- in expressing herself - subjectively "can't feel"- -Returned from [facility] following a one-month stay there. -Continue prednisone 30mg daily, CellCept for 6 months. -Bactrim Wednesday/Wednesday/Wednesday prophylactically. -Continue physical therapy, Occupational Therapy.- call PT appreciate Neurology seeing patient- MRI spines ordered Hematology ff - for plasmapheresis- case d/w with Dr. Estrella and Rosemarie- will not do plasmapheresis Diabetes mellitus, insulin-dependent -HgA1C 7.9 (10/05/17) -Blood glucose uncontrolled, possibly related to steroid use - On Levemir 36 units in the morning and 40 units at night with sliding scale insulin and prandial NovoLog. BGs - monitoring Hypertension, chronic essential -Continue metoprolol. Anemia of chronic disease - H&H are stable and no further hematuria Pulmonary embolus - restart Eliquis- no plans for permacath anymore Neurogenic bladder Urinary retention -Suprapubic catheter in place. Appreciate urology recommendations. -Suprapubic catheter exchange and upsizing 11/14 - SC changed 12/15 - routine care - and change q 4 weeks Constipation -Bowel regimen. Continue Senokot daily. will give x 1 Dulcolax supp today 12/16 DVT prophylaxis Eliquis Full Code
[2017-12-17] MEDS: Gabapentin 300 MG Capsule PO SCH ×2 (14:20→17:47)
[2017-12-17] MEDS: diazePAM 5 MG Tablet PO PRN (22:02)
[2017-12-17] MEDS: Nortriptyline 10 MG Capsule PO SCH (22:02)
[2017-12-18] MEDS: diazePAM 5 MG Tablet PO PRN ×2 (05:50→18:26)
[2017-12-18] MEDS: Insulin Detemir Inj 1,000 UNIT/10 ML Vial SQ SCH ×2 (06:16→21:11)
--- NOTE | 2017-12-18 09:09 | P.PN ---
Subjective Interval history: Upper extremities strength continues to improve- almost 5/5 LE same-0-1/5, some sensation though + BM 12/16 Physical Exam Vital signs: Vital Signs 12/17/17 12:00 12/17/17 17:45 12/17/17 20:00 Temperature 98.7 F 97.3 F L 98 F Pulse Rate 86 70 76 Respiratory Rate 17 16 16 Blood Pressure 109/68 120/71 119/72 Pulse Oximetry 100 98 98 12/18/17 00:00 12/18/17 04:00 Temperature 97.7 F 98.3 F Pulse Rate 80 79 Respiratory Rate 16 16 Blood Pressure 110/72 147/76 H Pulse Oximetry 99 99 Intake & Output 12/17/17 12/18/17 12/18/17 18:59 06:59 18:59 Output Total 575 / 575 800 / 800 Balance -575 / -575 -800 / -800 Weight 116.1 kg Output: Urine 800 / 800 Urine Amount (Catheter) 575 / 575 Suprapubic 575 / 575 Other: Date of Last Bowel Movement 12/17/17 12/17/17 # Incontinent Bowel Movements 1 Narrative: awake alert, speech clear lungs- clear regular rhythm motor ue strength good strength 5/5 this am LE no change in paresis, no calf swelling or leg swelling suprapubic cath in place- site good gait unable to ambulate gets around with wheelchair - Urinary Catheter Management Suprapubic Cath placed during this visit: no Reason for continuing: Chronic Urinary Retention Results - Labs CBC & Chem 7: 12/08/17 06:45 12/16/17 00:20 Laboratory Results - last 24 hr 12/17/17 12/17/17 12/17/17 11:56 16:52 21:29 POC Glucose 118 H 308 H 154 H 12/18/17 05:05 POC Glucose 111 H Assessment and Plan - Assessment (1) Neuromyelitis optica Code(s): G36.0 - Neuromyelitis optica [Devic] Status: Acute (2) Pulmonary embolism Code(s): I26.99 - Other pulmonary embolism without acute cor pulmonale Status : Acute (3) DM type 2 (diabetes mellitus, type 2) Code(s): E11.9 - Type 2 diabetes mellitus without complications Status: Acute - Plan 47-year-old female with a history of diabetes, 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 Neuromyelitis optica, transverse myelitis, paraplegia NEw complains that she is unable to feel with her hands- UE sensation and strength much improved -Returned from [facility] following a one-month stay there. -Continue prednisone 30mg daily, CellCept for 6 months. -Bactrim Wednesday/Wednesday/Wednesday prophylactically. -Continue physical therapy, Occupational Therapy.- patient know and vigilant with exercises - she was instructed what to do this weekend appreciate Neurology seeing patient- MRI spines ordered- unremarkable 12/17- case d/w with Dr. Estrella and Rosemarie- will not do plasmapheresis Diabetes mellitus, insulin-dependent -HgA1C 7.9 (10/05/17) -Blood glucose overall good- difficult with steroids on board - On Levemir 36 units in the morning and 40 units at night with sliding scale insulin and prandial NovoLog. BGs - monitoring Hypertension, chronic essential -Continue metoprolol. Anemia of chronic disease - H&H are stable and no further hematuria Pulmonary embolus - restarted Eliquis-12/16 no plans for permacath anymore Neurogenic bladder Urinary retention -Suprapubic catheter in place. Appreciate urology recommendations. -Suprapubic catheter exchange and upsizing 11/14 - SC changed 12/15 - routine care - and change q 4 weeks Constipation -Bowel regimen. Continue Senokot daily. monitor BMs DVT prophylaxis Antwan Full Code CM working with us for SNF placement-[place]
[2017-12-18] MEDS: predniSONE 10 MG Tablet PO SCH (10:00)
[2017-12-18] MEDS: Calcium Acetate 667 MG Capsule PO SCH ×2 (10:01→18:27)
[2017-12-18] MEDS: Calcium/Vitamin D 250/125 MG Tablet PO SCH (10:01)
[2017-12-18] MEDS: Ascorbic Acid 500 MG Tablet PO SCH (10:02)
[2017-12-18] MEDS: Gabapentin 300 MG Capsule PO SCH ×3 (10:03→18:26)
[2017-12-18] MEDS: Baclofen 10 MG Tablet PO SCH ×4 (10:03→21:07)
[2017-12-18] MEDS: Senna/Docusate Sodium 8.6/50 MG Tablet PO SCH ×2 (10:04→21:08)
[2017-12-18] MEDS: Insulin NovoLOG Aspart Correctional Sugar Inj SQ SCH ×4 (10:25→21:11)
[2017-12-18] MEDS: Nortriptyline 10 MG Capsule PO SCH (21:08)
[2017-12-19] MEDS: diazePAM 5 MG Tablet PO PRN ×2 (06:22→15:46)
[2017-12-19] MEDS: Insulin NovoLOG Aspart Correctional Sugar Inj SQ SCH ×4 (10:42→21:29)
[2017-12-19] MEDS: Baclofen 10 MG Tablet PO SCH ×4 (10:42→21:27)
[2017-12-19] MEDS: Calcium Acetate 667 MG Capsule PO SCH ×3 (10:43→17:47)
[2017-12-19] MEDS: Senna/Docusate Sodium 8.6/50 MG Tablet PO SCH ×2 (10:43→21:27)
[2017-12-19] MEDS: predniSONE 10 MG Tablet PO SCH (10:43)
[2017-12-19] MEDS: Gabapentin 300 MG Capsule PO SCH ×3 (10:44→17:47)
[2017-12-19] MEDS: Calcium/Vitamin D 250/125 MG Tablet PO SCH (10:44)
[2017-12-19] MEDS: Ascorbic Acid 500 MG Tablet PO SCH (10:44)
[2017-12-19] MEDS: Insulin Detemir Inj 1,000 UNIT/10 ML Vial SQ SCH ×3 (10:45→21:29)
--- NOTE | 2017-12-19 14:58 | P.PN ---
Subjective Interval history: up in wheelchair strength - feels better Physical Exam Vital signs: Vital Signs 12/18/17 16:00 12/18/17 20:15 12/19/17 01:00 Temperature 98.9 F 99 F 98.4 F Pulse Rate 78 93 H 89 Respiratory Rate 12 17 21 Blood Pressure 116/57 L 126/70 120/66 Pulse Oximetry 99 98 99 12/19/17 06:30 12/19/17 08:00 12/19/17 12:00 Temperature 98.8 F 97.5 F L 98.1 F Pulse Rate 70 65 80 Respiratory Rate 16 12 12 Blood Pressure 118/60 123/63 140/84 Pulse Oximetry 100 98 96 Intake & Output 12/18/17 12/19/17 12/19/17 18:59 06:59 18:59 Intake Total 2650 / 2650 Output Total 1200 / 1200 3050 / 3050 Balance -1200 / -1200 -400 / -400 Weight 116.5 kg Intake: Oral 2650 / 2650 Output: Urine 1200 / 1200 Urine Amount (Catheter) 3050 / 3050 Suprapubic 3050 / 3050 Other: Date of Last Bowel Movement 12/17/17 # Bowel Movements 0 Narrative: awake alert, speech clear lungs- clear regular rhythm motor ue strength good strength 5/5 LE no change in paresis, no calf swelling or leg swelling suprapubic cath in place- site good gait unable to ambulate gets around with wheelchair - Urinary Catheter Management Suprapubic Cath placed during this visit: no Reason for continuing: Chronic Urinary Retention Results - Labs CBC & Chem 7: 12/08/17 06:45 12/16/17 00:20 Laboratory Results - last 24 hr 12/18/17 12/18/17 12/19/17 17:24 20:55 07:51 POC Glucose 185 H 230 H 152 H 12/19/17 12:59 POC Glucose 278 H - Procedures none Assessment and Plan - Assessment (1) Neuromyelitis optica Code(s): G36.0 - Neuromyelitis optica [Devic] Status: Acute (2) Pulmonary embolism Code(s): I26.99 - Other pulmonary embolism without acute cor pulmonale Status : Acute (3) DM type 2 (diabetes mellitus, type 2) Code(s): E11.9 - Type 2 diabetes mellitus without complications Status: Acute - Plan 47-year-old female with a history of diabetes, 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 Neuromyelitis optica, transverse myelitis, paraplegia NEw complains that she is unable to feel with her hands- UE sensation and strength much improved -Returned from [facility] following a one-month stay there. -Continue prednisone 30mg daily, CellCept for 6 months. -Bactrim Wednesday/Wednesday/Wednesday prophylactically. -Continue physical therapy, Occupational Therapy.- patient know and vigilant with exercises - she was instructed what to do this weekend appreciate Neurology seeing patient- MRI spines ordered- unremarkable 12/17- case d/w with Dr. Estrella and Rosemarie- will not do plasmapheresis Diabetes mellitus, insulin-dependent -HgA1C 7.9 (10/05/17) -Blood glucose overall good- difficult with steroids on board - On Levemir 36 units in the morning and 40 units at night with sliding scale insulin and prandial NovoLog. BGs - monitoring Hypertension, chronic essential -Continue metoprolol. Anemia of chronic disease - H&H are stable and no further hematuria Pulmonary embolus - restarted Eliquis-12/16 no plans for permacath anymore Neurogenic bladder Urinary retention -Suprapubic catheter in place. Appreciate urology recommendations. -Suprapubic catheter exchange and upsizing 11/14 - SC changed 12/15 - routine care - and change q 4 weeks Constipation -Bowel regimen. Continue Senokot daily. monitor BMs DVT prophylaxis Antwan Garcia CM working with us for SNF placement-[facility]
[2017-12-19] MEDS: Nortriptyline 10 MG Capsule PO SCH (21:26)
[2017-12-20] MEDS: Insulin Detemir Inj 1,000 UNIT/10 ML Vial SQ SCH ×3 (10:05→21:00)
[2017-12-20] MEDS: Baclofen 10 MG Tablet PO SCH ×4 (10:46→22:32)
[2017-12-20] MEDS: Sulfamethoxazole/Trimethoprim 400/80 MG Tablet PO SCH (10:46)
[2017-12-20] MEDS: predniSONE 10 MG Tablet PO SCH (10:46)
[2017-12-20] MEDS: Gabapentin 300 MG Capsule PO SCH ×3 (10:46→18:35)
[2017-12-20] MEDS: Calcium/Vitamin D 250/125 MG Tablet PO SCH (10:47)
[2017-12-20] MEDS: Ascorbic Acid 500 MG Tablet PO SCH (10:47)
[2017-12-20] MEDS: Calcium Acetate 667 MG Capsule PO SCH ×3 (10:48→18:35)
[2017-12-20] MEDS: Senna/Docusate Sodium 8.6/50 MG Tablet PO SCH ×2 (10:48→22:33)
[2017-12-20] MEDS: Insulin NovoLOG Aspart Correctional Sugar Inj SQ SCH ×4 (10:49→21:00)
--- NOTE | 2017-12-20 13:50 | P.PN ---
Subjective Interval history: strenght improved both UE- feeding himself lower extremities- movements are dye to spasms Physical Exam Vital signs: Vital Signs 12/19/17 16:00 12/19/17 20:50 12/20/17 00:15 Temperature 98.5 F 98.2 F 98 F Pulse Rate 81 83 67 Respiratory Rate 12 16 Blood Pressure 131/79 128/73 125/67 Pulse Oximetry 100 99 99 12/20/17 06:15 12/20/17 12:00 Temperature 98.3 F 97.9 F Pulse Rate 66 79 Respiratory Rate 16 20 Blood Pressure 120/70 137/78 Pulse Oximetry 100 100 Intake & Output 12/19/17 12/20/17 12/20/17 18:59 06:59 18:59 Intake Total 3450 / 3450 Output Total 1200 / 1200 4650 / 4650 Balance -1200 / -1200 -1200 / -1200 Weight 117 kg Intake: Oral 3450 / 3450 Output: Urine Amount (Catheter) 1200 / 1200 4650 / 4650 Suprapubic 1200 / 1200 4650 / 4650 Other: Date of Last Bowel Movement 12/19/17 # Bowel Movements 1 0 Narrative: awake alert, speech clear lungs- clear regular rhythm motor ue strength good strength individually LE no change in paresis, no calf swelling or leg swelling suprapubic cath in place- site good gait unable to ambulate gets around with wheelchair - Urinary Catheter Management Suprapubic Cath placed during this visit: no Reason for continuing: Chronic Urinary Retention Results - Labs CBC & Chem 7: 12/08/17 06:45 12/16/17 00:20 Laboratory Results - last 24 hr 12/19/17 12/19/17 12/20/17 16:18 21:15 07:36 POC Glucose 276 H 199 H 131 H 12/20/17 12:16 POC Glucose 211 H - Procedures none Assessment and Plan - Assessment (1) Neuromyelitis optica Code(s): G36.0 - Neuromyelitis optica [Devic] Status: Acute (2) Pulmonary embolism Code(s): I26.99 - Other pulmonary embolism without acute cor pulmonale Status : Acute (3) DM type 2 (diabetes mellitus, type 2) Code(s): E11.9 - Type 2 diabetes mellitus without complications Status: Acute - Plan 47-year-old female with a history of diabetes, 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. Neuromyelitis optica, transverse myelitis, paraplegia NEw complains that she is unable to feel with her hands- UE sensation and strength much improved -Returned from [facility] following a one-month stay there. -Continue prednisone 30mg daily, CellCept for 6 months. -Bactrim Wednesday/Wednesday/Wednesday prophylactically. -Continue physical therapy, Occupational Therapy.- patient know and vigilant with exercises - she was instructed what to do this weekend appreciate Neurology seeing patient- MRI spines ordered- unremarkable 12/17- case d/w with Dr. Estrella and Rosemarie- will not do plasmapheresis Diabetes mellitus, insulin-dependent -HgA1C 7.9 (10/05/17) -Blood glucose overall good- difficult with steroids on board - On Levemir 36 units in the morning and 40 units at night with sliding scale insulin and prandial NovoLog. BGs - monitoring Hypertension, chronic essential -Continue metoprolol. Anemia of chronic disease - H&H are stable and no further hematuria Pulmonary embolus - restarted Eliquis-12/16 no plans for permacath anymore Neurogenic bladder Urinary retention -Suprapubic catheter in place. Appreciate urology recommendations. -Suprapubic catheter exchange and upsizing 11/14 - SC changed 12/15 - routine care - and change q 4 weeks Constipation -Bowel regimen. Continue Senokot daily. monitor BMs DVT prophylaxis Antwan Full Code [facility] working with us for SNF placement-[facility]- d/w CM- aiting to hear from them today hopefully 12/20
[2017-12-20] MEDS: Nortriptyline 10 MG Capsule PO SCH (22:33)
[2017-12-21] MEDS: Insulin Detemir Inj 1,000 UNIT/10 ML Vial SQ SCH ×2 (07:04→22:09)
[2017-12-21] MEDS: Baclofen 10 MG Tablet PO SCH ×4 (08:48→22:08)
[2017-12-21] MEDS: predniSONE 10 MG Tablet PO SCH (08:48)
[2017-12-21] MEDS: Gabapentin 300 MG Capsule PO SCH ×3 (08:50→18:44)
[2017-12-21] MEDS: Calcium/Vitamin D 250/125 MG Tablet PO SCH (08:50)
[2017-12-21] MEDS: Ascorbic Acid 500 MG Tablet PO SCH (08:50)
[2017-12-21] MEDS: Calcium Acetate 667 MG Capsule PO SCH ×3 (08:50→18:44)
[2017-12-21] MEDS: Senna/Docusate Sodium 8.6/50 MG Tablet PO SCH ×2 (08:50→22:08)
[2017-12-21] MEDS: Insulin NovoLOG Aspart Correctional Sugar Inj SQ SCH ×4 (08:51→22:10)
--- NOTE | 2017-12-21 21:33 | P.PN ---
Physical Exam Vital signs: Vital Signs 12/21/17 00:00 12/21/17 04:00 12/21/17 09:05 Temperature 98.1 F 98.3 F 98.6 F Pulse Rate 84 88 86 Respiratory Rate 18 18 18 Blood Pressure 137/91 H 140/80 138/75 Pulse Oximetry 100 100 96 12/21/17 12:00 12/21/17 16:00 Temperature 98.6 F 98.3 F Pulse Rate 85 78 Respiratory Rate 17 18 Blood Pressure 149/72 H 163/93 H Pulse Oximetry 96 100 Intake & Output 12/21/17 12/21/17 12/22/17 06:59 18:59 06:59 Output Total 1700 / 1700 1999 Balance -170 / -1699 -1999 -1999 Weight 117 kg Output: Urine 1700 / 1700 1999 Other: Date of Last Bowel Movement 12/21/17 12/21/17 # Bowel Movements 2 # Incontinent Bowel Movements 1 Narrative: Subjective Interval history: Strength the same LE spasm No events overnight Physical Exam GENERAL: 47 yo F alert and awake CARDIOVASCULAR: Regular rate and rhythm without murmurs, gallops, or rubs. RESPIRATORY: Breath sounds equal bilaterally. No accessory muscle use. GASTROINTESTINAL: Abdomen soft, non-tender, nondistended. : suprapubic cath in place MUSCULOSKELETAL: LE paresis. No cyanosis, or edema. 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 Neuromyelitis optica, transverse myelitis, paraplegia New complains that she is unable to feel with her hands- UE sensation and strength much improved -Returned from [facility] following a one-month stay there. -Continue prednisone 30mg daily, CellCept for 6 months. -Bactrim Wednesday/Wednesday/Wednesday prophylactically. -Continue physical therapy, Occupational Therapy.- patient know and vigilant with exercises - she was instructed what to do this weekend appreciate Neurology seeing patient- MRI spines ordered- unremarkable 12/17- case d/w with Dr. Estrella and Rosemarie- will not do plasmapheresis Diabetes mellitus, insulin-dependent -HgA1C 7.9 (10/05/17) -Blood glucose overall good- difficult with steroids on board - On Levemir 36 units in the morning and 40 units at night with sliding scale insulin and prandial NovoLog. BGs - monitoring Hypertension, chronic essential -Continue metoprolol. Anemia of chronic disease - H&H are stable and no further hematuria Pulmonary embolus - restarted Eliquis-12/16 no plans for permacath anymore Neurogenic bladder Urinary retention -Suprapubic catheter in place. Appreciate urology recommendations. -Suprapubic catheter exchange and upsizing 11/14 - SC changed 12/15 - routine care - and change q 4 weeks Constipation -Bowel regimen. Continue Senokot daily. monitor BMs DVT prophylaxis Antwan Full Code [facility] working with us for SNF placement-[facility] IONA ff- - Urinary Catheter Management Suprapubic Cath placed during this visit: no Reason for continuing: Chronic Urinary Retention Results - Labs CBC & Chem 7: 12/08/17 06:45 12/16/17 00:20 Laboratory Results - last 24 hr 12/20/17 12/21/17 12/21/17 21:23 07:00 11:59 POC Glucose 318 H 182 H 208 H 12/21/17 18:30 POC Glucose 290 H - Procedures none Assessment and Plan - Assessment (1) Neuromyelitis optica Code(s): G36.0 - Neuromyelitis optica [Devic] Status: Acute (2) Pulmonary embolism Code(s): I26.99 - Other pulmonary embolism without acute cor pulmonale Status : Acute (3) DM type 2 (diabetes mellitus, type 2) Code(s): E11.9 - Type 2 diabetes mellitus without complications Status: Acute
[2017-12-21] MEDS: diazePAM 5 MG Tablet PO PRN (22:08)
[2017-12-21] MEDS: Nortriptyline 10 MG Capsule PO SCH (22:08)
[2017-12-22] MEDS: Insulin Detemir Inj 1,000 UNIT/10 ML Vial SQ SCH ×2 (09:24→21:49)
[2017-12-22] MEDS: Insulin NovoLOG Aspart Correctional Sugar Inj SQ SCH ×4 (09:25→21:49)
[2017-12-22] MEDS: Calcium/Vitamin D 250/125 MG Tablet PO SCH (09:29)
[2017-12-22] MEDS: predniSONE 10 MG Tablet PO SCH (09:29)
[2017-12-22] MEDS: Baclofen 10 MG Tablet PO SCH ×4 (09:29→21:48)
[2017-12-22] MEDS: Calcium Acetate 667 MG Capsule PO SCH ×3 (09:30→18:33)
[2017-12-22] MEDS: Gabapentin 300 MG Capsule PO SCH ×3 (09:30→18:33)
[2017-12-22] MEDS: Ascorbic Acid 500 MG Tablet PO SCH (09:30)
[2017-12-22] MEDS: Sulfamethoxazole/Trimethoprim 400/80 MG Tablet PO SCH (09:31)
[2017-12-22] MEDS: Senna/Docusate Sodium 8.6/50 MG Tablet PO SCH ×2 (09:53→21:48)
--- NOTE | 2017-12-22 10:22 | P.PN ---
Physical Exam Vital signs: Vital Signs 12/21/17 12:00 12/21/17 16:00 12/21/17 20:00 Temperature 98.6 F 98.3 F 98.0 F Pulse Rate 85 78 93 H Respiratory Rate 17 18 18 Blood Pressure 149/72 H 163/93 H 128/78 Pulse Oximetry 96 100 100 12/22/17 00:00 12/22/17 00:33 12/22/17 04:00 Temperature 97.9 F 98.0 F Pulse Rate 89 88 Respiratory Rate 18 20 18 Blood Pressure 121/81 109/57 L Pulse Oximetry 95 99 12/22/17 05:54 12/22/17 05:55 12/22/17 07:28 Temperature Pulse Rate Respiratory Rate 20 20 18 Blood Pressure Pulse Oximetry 12/22/17 07:33 Temperature 98.0 F Pulse Rate 71 Respiratory Rate 12 Blood Pressure 116/65 Pulse Oximetry 98 Intake & Output 12/21/17 12/22/17 12/22/17 18:59 06:59 18:59 Output Total 1999 3550 / 3550 Balance -1999 -355 / -3550 Weight 117 kg Output: Urine 1999 Urine Amount (Catheter) 1550 / 1550 Suprapubic 1550 / 1550 Other: Date of Last Bowel Movement 12/21/17 12/21/17 12/21/17 # Bowel Movements 2 # Incontinent Bowel Movements 1 Narrative: Subjective Interval history: The patient is in bed. Says she has weakness in her legs not much improvement. Says she follows with [facility] and she is supposed to get rituximab about this time, as she is given once a month at [facility] , will obtain records . No other complaints at this time. No chest pain or shortness of breath. Physical Exam GENERAL: 47 yo F alert and awake CARDIOVASCULAR: Regular rate and rhythm without murmurs, gallops, or rubs. RESPIRATORY: Breath sounds equal bilaterally. No accessory muscle use. GASTROINTESTINAL: Abdomen soft, non-tender, nondistended. : suprapubic cath in place MUSCULOSKELETAL: LE paresis. No cyanosis, or edema. 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 Neuromyelitis optica, transverse myelitis, paraplegia New complains that she is unable to feel with her hands- UE sensation and strength much improved -Returned from [facility] following a one-month stay there. -Continue prednisone 30mg daily, CellCept for 6 months. -Bactrim Wednesday/Wednesday/Wednesday prophylactically. -Continue physical therapy, Occupational Therapy.- patient know and vigilant with exercises - she was instructed what to do this weekend appreciate Neurology seeing patient- MRI spines ordered- unremarkable 12/17- case d/w with Dr. Estrella and Rosemarie- will not do plasmapheresis Diabetes mellitus, insulin-dependent -HgA1C 7.9 (10/05/17) -Blood glucose overall good- difficult with steroids on board - On Levemir 36 units in the morning and 40 units at night with sliding scale insulin and prandial NovoLog. BGs - monitoring Hypertension, chronic essential -Continue metoprolol. Anemia of chronic disease - H&H are stable and no further hematuria Pulmonary embolus - restarted Eliquis-12/16 no plans for permacath anymore Neurogenic bladder Urinary retention -Suprapubic catheter in place. Appreciate urology recommendations. -Suprapubic catheter exchange and upsizing 11/14 - SC changed 12/15 - routine care - and change q 4 weeks Constipation -Bowel regimen. Continue Senokot daily. monitor BMs DVT prophylaxis Eliquis Full Code CM working with us for SNF placement-[facility]- Will obtain records from [facility] regarding rituximab admin - Urinary Catheter Management Suprapubic Cath placed during this visit: no Reason for continuing: Other continuation reason Results - Labs CBC & Chem 7: 12/08/17 06:45 12/16/17 00:20 Laboratory Results - last 24 hr 12/21/17 12/21/17 12/21/17 11:59 18:30 21:53 POC Glucose 208 H 290 H 206 H 12/22/17 12/22/17 05:22 07:46 POC Glucose 159 H 116 H - Procedures none Assessment and Plan - Assessment (1) Neuromyelitis optica Code(s): G36.0 - Neuromyelitis optica [Devic] Status: Acute (2) Pulmonary embolism Code(s): I26.99 - Other pulmonary embolism without acute cor pulmonale Status : Acute (3) DM type 2 (diabetes mellitus, type 2) Code(s): E11.9 - Type 2 diabetes mellitus without complications Status: Acute
[2017-12-22] MEDS: diazePAM 5 MG Tablet PO PRN (15:48)
[2017-12-22] MEDS: Nortriptyline 10 MG Capsule PO SCH (21:47)
[2017-12-23] MEDS: Insulin NovoLOG Aspart Correctional Sugar Inj SQ SCH ×4 (07:33→22:21)
[2017-12-23] MEDS: Baclofen 10 MG Tablet PO SCH ×4 (08:10→21:58)
[2017-12-23] MEDS: Gabapentin 300 MG Capsule PO SCH ×3 (08:10→17:46)
[2017-12-23] MEDS: Ascorbic Acid 500 MG Tablet PO SCH (08:10)
[2017-12-23] MEDS: predniSONE 10 MG Tablet PO SCH (08:10)
[2017-12-23] MEDS: Senna/Docusate Sodium 8.6/50 MG Tablet PO SCH ×2 (08:10→21:58)
[2017-12-23] MEDS: Calcium Acetate 667 MG Capsule PO SCH ×3 (08:11→17:45)
[2017-12-23] MEDS: Calcium/Vitamin D 250/125 MG Tablet PO SCH (08:11)
[2017-12-23] MEDS: Insulin Detemir Inj 1,000 UNIT/10 ML Vial SQ SCH ×2 (08:11→22:22)
--- NOTE | 2017-12-23 14:18 | P.PN ---
Physical Exam Vital signs: Vital Signs 12/22/17 18:38 12/22/17 20:00 12/23/17 00:51 Temperature 98.1 F 97.9 F 97.7 F Pulse Rate 76 75 76 Respiratory Rate 17 16 16 Blood Pressure 147/68 H 100/59 L 139/80 Pulse Oximetry 100 100 12/23/17 04:00 12/23/17 06:49 12/23/17 08:00 Temperature 97.8 F 98.0 F Pulse Rate 72 78 Respiratory Rate 16 12 17 Blood Pressure 119/81 117/68 Pulse Oximetry 100 97 12/23/17 12:00 Temperature 98.0 F Pulse Rate 79 Respiratory Rate 17 Blood Pressure 133/69 Pulse Oximetry 99 Intake & Output 12/22/17 12/23/17 12/23/17 18:59 06:59 18:59 Intake Total 300 / 300 Output Total 500 / 500 1949 / 1950 Balance -500 / -500 -1650 / -1650 Intake: Oral 300 / 300 Output: Urine 1949 1950 Urine Amount (Catheter) 500 / 500 Suprapubic 500 / 500 Other: Date of Last Bowel Movement 12/21/17 12/21/17 Narrative: Subjective Interval history: Weakness in her legs is improving with physical therapy. No chest pain or shortness of breath. She however complains of constipation and tried all the other laxatives and did not work. We will add magnesium citrate. If no relief plan for enema Physical Exam GENERAL: 47 yo F alert and awake CARDIOVASCULAR: Regular rate and rhythm without murmurs, gallops, or rubs. RESPIRATORY: Breath sounds equal bilaterally. No accessory muscle use. GASTROINTESTINAL: Abdomen soft, non-tender, nondistended. : suprapubic cath in place MUSCULOSKELETAL: LE paresis. No cyanosis, or edema. 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 Neuromyelitis optica, transverse myelitis, paraplegia New complains that she is unable to feel with her hands- UE sensation and strength much improved -Returned from [facility] following a one-month stay there. -Continue prednisone 30mg daily, CellCept for 6 months. -Bactrim Wednesday/Wednesday/Wednesday prophylactically. -Continue physical therapy, Occupational Therapy.- patient know and vigilant with exercises - she was instructed what to do this weekend appreciate Neurology seeing patient- MRI spines ordered- unremarkable 12/17- case d/w with Dr. Estrella and Rosemarie- will not do plasmapheresis Diabetes mellitus, insulin-dependent -HgA1C 7.9 (10/05/17) -Blood glucose overall good- difficult with steroids on board - On Levemir 36 units in the morning and 40 units at night with sliding scale insulin and prandial NovoLog. BGs - monitoring Hypertension, chronic essential -Continue metoprolol. Anemia of chronic disease - H&H are stable and no further hematuria Pulmonary embolus - restarted Eliquis-12/16 no plans for permacath anymore Neurogenic bladder Urinary retention -Suprapubic catheter in place. Appreciate urology recommendations. -Suprapubic catheter exchange and upsizing 11/14 - SC changed 12/15 - routine care - and change q 4 weeks Constipation -Bowel regimen. Continue Senokot daily. Tried lactulose, milk milk of magnesia however without bowel movement. Will add magnesium citrate. He is no bowel movement will do enema. monitor BMs DVT prophylaxis Eliquis Full Code CM working with us for SNF placement-[facility]- Will obtain records from [facility] regarding rituximab admin - Urinary Catheter Management Suprapubic Cath placed during this visit: no Reason for continuing: Other continuation reason Results - Labs CBC & Chem 7: 12/08/17 06:45 12/16/17 00:20 Laboratory Results - last 24 hr 12/22/17 12/22/17 12/23/17 17:08 21:23 04:33 POC Glucose 324 H 290 H 175 H 12/23/17 12/23/17 07:19 11:07 POC Glucose 111 H 201 H - Procedures none Assessment and Plan - Assessment (1) Neuromyelitis optica Code(s): G36.0 - Neuromyelitis optica [Devic] Status: Acute (2) Pulmonary embolism Code(s): I26.99 - Other pulmonary embolism without acute cor pulmonale Status : Acute (3) DM type 2 (diabetes mellitus, type 2) Code(s): E11.9 - Type 2 diabetes mellitus without complications Status: Acute
[2017-12-23] MEDS ORDERED: Magnesium Citrate Liq 300 ML Bottle PO ONE (17:53)
[2017-12-23] MEDS ORDERED: Sod Phosphate/Sod Biphosphate (Adult) Enema 133 ML Bottle RECTAL PRN (17:54)
[2017-12-23] MEDS: Nortriptyline 10 MG Capsule PO SCH (22:21)
[2017-12-24] MEDS: Insulin NovoLOG Aspart Correctional Sugar Inj SQ SCH ×4 (10:18→23:13)
[2017-12-24] MEDS: Insulin Detemir Inj 1,000 UNIT/10 ML Vial SQ SCH ×2 (10:20→23:15)
[2017-12-24] MEDS: predniSONE 10 MG Tablet PO SCH (10:21)
[2017-12-24] MEDS: Senna/Docusate Sodium 8.6/50 MG Tablet PO SCH ×2 (10:21→23:09)
[2017-12-24] MEDS: Ascorbic Acid 500 MG Tablet PO SCH (10:21)
[2017-12-24] MEDS: Baclofen 10 MG Tablet PO SCH ×4 (10:21→23:09)
[2017-12-24] MEDS: Calcium Acetate 667 MG Capsule PO SCH ×3 (10:22→18:25)
[2017-12-24] MEDS: Calcium/Vitamin D 250/125 MG Tablet PO SCH (10:22)
[2017-12-24] MEDS: Gabapentin 300 MG Capsule PO SCH ×3 (10:23→18:25)
[2017-12-24] MEDS: Sulfamethoxazole/Trimethoprim 400/80 MG Tablet PO SCH (10:26)
[2017-12-24] MEDS: Bisacodyl 10 MG Supp RECTAL PRN (12:35)
--- NOTE | 2017-12-24 15:35 | P.PN ---
Physical Exam Vital signs: Vital Signs 12/23/17 17:00 12/23/17 20:00 12/23/17 23:55 Temperature 98.2 F 97.5 F L 97.6 F Pulse Rate 68 72 70 Respiratory Rate 17 18 17 Blood Pressure 121/71 123/78 124/77 Pulse Oximetry 99 100 100 12/24/17 04:57 12/24/17 09:06 12/24/17 10:24 Temperature 97.8 F Pulse Rate 66 71 Respiratory Rate 16 16 16 Blood Pressure 129/64 128/68 Pulse Oximetry 95 99 12/24/17 13:20 Temperature 97.3 F L Pulse Rate 85 Respiratory Rate 16 Blood Pressure 107/67 Pulse Oximetry 100 Intake & Output 12/23/17 12/24/17 12/24/17 18:59 06:59 18:59 Intake Total 240 / 240 884 / 884 Output Total 1550 / 1550 Balance 240 / 240 -666 / -666 Intake: Oral 240 / 240 884 / 884 Output: Urine 650 / 650 Urine Amount (Catheter) 900 / 900 Suprapubic 900 / 900 Other: Date of Last Bowel Movement 12/24/17 # Incontinent Bowel Movements 2 Narrative: Subjective Interval history: Weakness in her legs is improving with physical therapy. Denies chest pain, shortness of breath. Still with constipation tried magnesium citrate. Plan for sup and for enema Physical Exam GENERAL: 47 yo F alert and awake CARDIOVASCULAR: Regular rate and rhythm without murmurs, gallops, or rubs. RESPIRATORY: Breath sounds equal bilaterally. No accessory muscle use. GASTROINTESTINAL: Abdomen soft, non-tender, nondistended. : suprapubic cath in place MUSCULOSKELETAL: LE paresis. No cyanosis, or edema. 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 Neuromyelitis optica, transverse myelitis, paraplegia New complains that she is unable to feel with her hands- UE sensation and strength much improved -Returned from [facility] following a one-month stay there. -Continue prednisone 30mg daily, CellCept for 6 months. -Bactrim Wednesday/Wednesday/Wednesday prophylactically. -Continue physical therapy, Occupational Therapy.- patient know and vigilant with exercises - she was instructed what to do this weekend appreciate Neurology seeing patient- MRI spines ordered- unremarkable 12/17- case d/w with Dr. Estrella and Rosemarie- will not do plasmapheresis Diabetes mellitus, insulin-dependent -HgA1C 7.9 (10/05/17) -Blood glucose overall good- difficult with steroids on board - On Levemir 36 units in the morning and 40 units at night with sliding scale insulin and prandial NovoLog. BGs - monitoring Hypertension, chronic essential -Continue metoprolol. Anemia of chronic disease - H&H are stable and no further hematuria Pulmonary embolus - restarted Eliquis-12/16 no plans for permacath anymore Neurogenic bladder Urinary retention -Suprapubic catheter in place. Appreciate urology recommendations. -Suprapubic catheter exchange and upsizing 11/14 - SC changed 12/15 - routine care - and change q 4 weeks Constipation -Bowel regimen. Continue Senokot daily. Tried lactulose, milk milk of magnesia however without bowel movement. Will add magnesium citrate. He is no bowel movement will do enema. monitor BMs DVT prophylaxis Elimelly Full Code CM working with us for SNF placement-[facility] ff- Records from [facility] regarding rituximab admin - Urinary Catheter Management Suprapubic Cath placed during this visit: yes Reason for continuing: Acute urinary retention Insertion date: 12/15/17 Results - Labs CBC & Chem 7: 12/08/17 06:45 12/16/17 00:20 Laboratory Results - last 24 hr 12/23/17 12/23/17 12/24/17 16:22 20:09 03:20 POC Glucose 218 H 230 H 144 H 12/24/17 12/24/17 08:19 12:32 POC Glucose 126 H 184 H - Procedures none Assessment and Plan - Assessment (1) Neuromyelitis optica Code(s): G36.0 - Neuromyelitis optica [Devic] Status: Acute (2) Pulmonary embolism Code(s): I26.99 - Other pulmonary embolism without acute cor pulmonale Status : Acute (3) DM type 2 (diabetes mellitus, type 2) Code(s): E11.9 - Type 2 diabetes mellitus without complications Status: Acute
[2017-12-24] MEDS: diazePAM 5 MG Tablet PO PRN (18:25)
[2017-12-24] MEDS: Nortriptyline 10 MG Capsule PO SCH (23:11)
[2017-12-25 06:59] LABS: Baso % (Auto) 0.2 % (0.0-2.0); Eos % (Auto) 0.6 % (0.0-4.0); Hematocrit 38.9 % (35.0-46.0); Hemoglobin 12.6 gm/dL (11.6-15.3); Lymph # (Auto) 3.1 th/mm3 (1.0-4.8); Lymph % (Auto) 36.9 % (9.0-44.0); Mean Corpuscular HGB Conc 32.3 % (32.0-36.0); Mean Corpuscular Hemoglobin 26.4 pg (27.0-34.0); Mean Corpuscular Volume 81.7 fL (80.0-100.0); Mean Platelet Volume 9.3 fL (7.0-11.0); Mono # (Auto) 0.7 th/mm3 (0.0-0.9); Neut # (Auto) 4.5 th/mm3 (1.8-7.7); Neut % (Auto) 54.3 % (16.0-70.0); Platelet Count 223 th/mm3 (150-450); Red Blood Count 4.77 mil/mm3 (4.00-5.30); Red Cell Distribution Width 16.2 % (11.6-17.2); White Blood Count 8.3 th/mm3 (4.0-11.0)
--- NOTE | 2017-12-25 08:37 | P.PN ---
Physical Exam Vital signs: Vital Signs 12/24/17 09:06 12/24/17 10:24 12/24/17 13:20 Temperature 97.8 F 97.3 F L Pulse Rate 71 85 Respiratory Rate 16 16 16 Blood Pressure 128/68 107/67 Pulse Oximetry 99 100 12/24/17 20:00 12/25/17 00:00 12/25/17 04:00 Temperature 98.5 F 97.8 F 97.9 F Pulse Rate 98 H 75 71 Respiratory Rate 17 18 18 Blood Pressure 111/69 122/72 114/67 Pulse Oximetry 97 93 L 96 Intake & Output 12/24/17 12/25/17 12/25/17 18:59 06:59 18:59 Intake Total 2250 / 2250 Output Total 1900 / 1900 Balance 350 / 350 Intake: Oral 2250 / 2250 Output: Urine 1900 / 1900 Other: Date of Last Bowel Movement 12/23/17 12/24/17 # Incontinent Bowel Movements 1 Narrative: Subjective Interval history: Had a BM last night says suppository helped. No n/v/. No abd pain . Weakness in her legs is improving with physical therapy. Denies chest pain, shortness of breath. Physical Exam GENERAL: 47 yo F alert and awake CARDIOVASCULAR: Regular rate and rhythm without murmurs, gallops, or rubs. RESPIRATORY: Breath sounds equal bilaterally. No accessory muscle use. GASTROINTESTINAL: Abdomen soft, non-tender, nondistended. : suprapubic cath in place MUSCULOSKELETAL: LE paresis. No cyanosis, or edema. 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 Neuromyelitis optica, transverse myelitis, paraplegia New complains that she is unable to feel with her hands- UE sensation and strength much improved -Returned from [facility] following a one-month stay there. -Continue prednisone 30mg daily, CellCept for 6 months. -Bactrim Wednesday/Wednesday/Wednesday prophylactically. -Continue physical therapy, Occupational Therapy.- patient know and vigilant with exercises - she was instructed what to do this weekend appreciate Neurology seeing patient- MRI spines ordered- unremarkable 12/17- case d/w with Dr. Estrella and Rosemarie- will not do plasmapheresis Diabetes mellitus, insulin-dependent -HgA1C 7.9 (10/05/17) -Blood glucose overall good- difficult with steroids on board - On Levemir 36 units in the morning and 40 units at night with sliding scale insulin and prandial NovoLog. BGs - monitoring Hypertension, chronic essential -Continue metoprolol. Anemia of chronic disease - H&H are stable and no further hematuria Pulmonary embolus - restarted Eliquis-12/16 no plans for permacath anymore Neurogenic bladder Urinary retention -Suprapubic catheter in place. Appreciate urology recommendations. -Suprapubic catheter exchange and upsizing 11/14 - SC changed 12/15 - routine care - and change q 4 weeks Constipation -Bowel regimen. Continue Senokot daily. Tried lactulose, milk milk of magnesia however without bowel movement. Had magnesium citrate. Dulcolax sup prn. monitor BMs DVT prophylaxis Eliquis Full Code CM working with us for SNF placement-[facility] ff- Records from [facility] regarding rituximab admin - Urinary Catheter Management Suprapubic Cath placed during this visit: yes Reason for continuing: Acute urinary retention Insertion date: 12/15/17 Results - Labs CBC & Chem 7: 12/25/17 06:23 12/25/17 10:20 Laboratory Results - last 24 hr 12/24/17 12/24/17 12/24/17 12:32 17:05 23:03 WBC RBC Hgb Hct MCV MCH MCHC RDW Plt Count MPV Neut % (Auto) Lymph % (Auto) [place] % (Auto) Eos % (Auto) Baso % (Auto) Neut # (Auto) Lymph # (Auto) [place] # (Auto) Eos # (Auto) Baso # (Auto) WBC Differential Differential Comment POC Glucose 184 H 216 H 247 H 12/25/17 12/25/17 12/25/17 03:37 06:23 07:45 WBC 8.3 RBC 4.77 Hgb 12.6 Hct 38.9 MCV 81.7 MCH 26.4 L MCHC 32.3 RDW 16.2 Plt Count 223 MPV 9.3 Neut % (Auto) 54.3 Lymph % (Auto) 36.9 [place] % (Auto) 8.0 Eos % (Auto) 0.6 Baso % (Auto) 0.2 Neut # (Auto) 4.5 Lymph # (Auto) 3.1 [place] # (Auto) 0.7 Eos # (Auto) 0.0 Baso # (Auto) 0.0 WBC Differential . Differential Comment Auto diff final POC Glucose 158 H 134 H - Procedures none Assessment and Plan - Assessment (1) Neuromyelitis optica Code(s): G36.0 - Neuromyelitis optica [Devic] Status: Acute (2) Pulmonary embolism Code(s): I26.99 - Other pulmonary embolism without acute cor pulmonale Status : Acute (3) DM type 2 (diabetes mellitus, type 2) Code(s): E11.9 - Type 2 diabetes mellitus without complications Status: Acute
[2017-12-25] MEDS: Insulin NovoLOG Aspart Correctional Sugar Inj SQ SCH ×4 (09:10→22:26)
[2017-12-25] MEDS: Insulin Detemir Inj 1,000 UNIT/10 ML Vial SQ SCH ×2 (09:12→22:25)
[2017-12-25] MEDS: Calcium Acetate 667 MG Capsule PO SCH ×3 (09:14→18:43)
[2017-12-25] MEDS: Senna/Docusate Sodium 8.6/50 MG Tablet PO SCH ×2 (09:16→22:09)
[2017-12-25] MEDS: Baclofen 10 MG Tablet PO SCH ×4 (09:16→22:07)
[2017-12-25] MEDS: predniSONE 10 MG Tablet PO SCH (09:17)
[2017-12-25] MEDS: Ascorbic Acid 500 MG Tablet PO SCH (09:17)
[2017-12-25] MEDS: Gabapentin 300 MG Capsule PO SCH ×3 (09:18→21:50)
[2017-12-25] MEDS: Calcium/Vitamin D 250/125 MG Tablet PO SCH (09:19)
[2017-12-25 11:03] LABS: Anion Gap 7 meq/L (5-15); Blood Urea Nitrogen 10 mg/dL (7-18); Calcium 9.3 mg/dL (8.5-10.1); Carbon Dioxide 28.6 meq/L (21.0-32.0); Chloride 103 meq/L (98-107); Glomerular Filtration Rate Greater Than 89 mL/min (>89); Glucose,Random 136 mg/dL (74-106); Potassium 3.7 meq/L (3.5-5.1); Sodium 139 meq/L (136-145)
[2017-12-25] MEDS: Bisacodyl 10 MG Supp RECTAL PRN (13:24)
[2017-12-25] MEDS: Nortriptyline 10 MG Capsule PO SCH (22:07)
[2017-12-25] MEDS: diazePAM 5 MG Tablet PO PRN (22:09)
[2017-12-26] MEDS: predniSONE 10 MG Tablet PO SCH (09:19)
[2017-12-26] MEDS: Calcium Acetate 667 MG Capsule PO SCH ×3 (09:21→18:48)
[2017-12-26] MEDS: Baclofen 10 MG Tablet PO SCH ×4 (09:21→21:50)
[2017-12-26] MEDS: Calcium/Vitamin D 250/125 MG Tablet PO SCH (09:22)
[2017-12-26] MEDS: Gabapentin 300 MG Capsule PO SCH ×3 (09:23→18:49)
[2017-12-26] MEDS: Senna/Docusate Sodium 8.6/50 MG Tablet PO SCH ×2 (09:23→21:50)
[2017-12-26] MEDS: Ascorbic Acid 500 MG Tablet PO SCH (09:24)
[2017-12-26] MEDS: Insulin NovoLOG Aspart Correctional Sugar Inj SQ SCH ×4 (09:26→21:54)
[2017-12-26] MEDS: Insulin Detemir Inj 1,000 UNIT/10 ML Vial SQ SCH ×2 (09:26→21:55)
--- NOTE | 2017-12-26 09:38 | P.PN ---
Physical Exam Vital signs: Vital Signs 12/25/17 12:00 12/25/17 17:00 12/25/17 20:00 Temperature 97.9 F 99.4 F 98.1 F Pulse Rate 82 85 89 Respiratory Rate 20 20 18 Blood Pressure 104/70 119/69 118/67 Pulse Oximetry 100 100 98 12/26/17 00:00 12/26/17 00:05 12/26/17 04:00 Temperature 98.0 F 98.3 F Pulse Rate 95 H 86 Respiratory Rate 18 18 18 Blood Pressure 139/80 130/74 Pulse Oximetry 95 98 12/26/17 08:00 Temperature 98 F Pulse Rate 84 Respiratory Rate 20 Blood Pressure 127/74 Pulse Oximetry 99 Intake & Output 12/25/17 12/26/17 12/26/17 18:59 06:59 18:59 Intake Total 1800 / 1800 Output Total 900 / 900 1600 / 1600 Balance -900 / -900 200 / 200 Intake: Oral 1800 / 1800 Output: Urine 900 / 900 1600 / 1600 Other: Date of Last Bowel Movement 12/26/17 # Incontinent Bowel Movements 1 Narrative: Subjective Interval history: Had a small BM says sup helps , will order as need daily. No n/v. No abd pain. Weakness in her legs is improving. Denies chest pain, shortness of breath. Physical Exam GENERAL: 47 yo F alert and awake CARDIOVASCULAR: Regular rate and rhythm without murmurs, gallops, or rubs. RESPIRATORY: Breath sounds equal bilaterally. No accessory muscle use. GASTROINTESTINAL: Abdomen soft, non-tender, nondistended. : suprapubic cath in place MUSCULOSKELETAL: LE paresis. No cyanosis, or edema. 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 Neuromyelitis optica, transverse myelitis, paraplegia New complains that she is unable to feel with her hands- UE sensation and strength much improved -Returned from [facility] following a one-month stay there. -Continue prednisone 30mg daily, CellCept for 6 months. -Bactrim Wednesday/Wednesday/Wednesday prophylactically. -Continue physical therapy, Occupational Therapy.- patient know and vigilant with exercises - she was instructed what to do this weekend appreciate Neurology seeing patient- MRI spines ordered- unremarkable 12/17- case d/w with Dr. Estrella and Rosemarie- will not do plasmapheresis Diabetes mellitus, insulin-dependent -HgA1C 7.9 (10/05/17) -Blood glucose overall good- difficult with steroids on board - On Levemir 36 units in the morning and 40 units at night with sliding scale insulin and prandial NovoLog. BGs - monitoring Hypertension, chronic essential -Continue metoprolol. Anemia of chronic disease - H&H are stable and no further hematuria Pulmonary embolus - restarted Eliquis-12/16 no plans for permacath anymore Neurogenic bladder Urinary retention -Suprapubic catheter in place. Appreciate urology recommendations. -Suprapubic catheter exchange and upsizing 11/14 - SC changed 12/15 - routine care - and change q 4 weeks Constipation -Bowel regimen. Continue Senokot daily. Tried lactulose, milk milk of magnesia however without bowel movement. Had magnesium citrate. Dulcolax sup prn. monitor BMs DVT prophylaxis Antwan Full Code [facility] working with us for SNF placement-[facility] ff- Records from [facility] regarding rituximab admin - Urinary Catheter Management Suprapubic Cath placed during this visit: yes Reason for continuing: Acute urinary retention Insertion date: 12/15/17 Results - Labs CBC & Chem 7: 12/25/17 06:23 12/25/17 10:20 Laboratory Results - last 24 hr 12/25/17 12/25/17 12/25/17 10:20 12:44 18:03 Sodium 139 Potassium 3.7 Chloride 103 Carbon Dioxide 28.6 Anion Gap 7 BUN 10 Creatinine 0.67 Estimated GFR Greater than 89 POC Glucose 247 H 267 H Random Glucose 136 H Calcium 9.3 12/25/17 12/26/17 21:53 07:31 Sodium Potassium Chloride Carbon Dioxide Anion Gap BUN Creatinine Estimated GFR POC Glucose 254 H 188 H Random Glucose Calcium - Procedures none Assessment and Plan - Assessment (1) Neuromyelitis optica Code(s): G36.0 - Neuromyelitis optica [Devic] Status: Acute (2) Pulmonary embolism Code(s): I26.99 - Other pulmonary embolism without acute cor pulmonale Status : Acute (3) DM type 2 (diabetes mellitus, type 2) Code(s): E11.9 - Type 2 diabetes mellitus without complications Status: Acute
[2017-12-26] MEDS: Nortriptyline 10 MG Capsule PO SCH (21:50)
[2017-12-26] MEDS: diazePAM 5 MG Tablet PO PRN (23:17)
--- NOTE | 2017-12-27 08:54 | P.PN ---
Physical Exam Vital signs: Vital Signs 12/26/17 12:00 12/26/17 17:00 12/26/17 20:00 Temperature 97.8 F 97.5 F L 97.6 F Pulse Rate 91 H 74 84 Respiratory Rate 20 20 20 Blood Pressure 110/71 136/66 125/69 Pulse Oximetry 100 100 100 12/27/17 00:00 12/27/17 00:30 12/27/17 04:00 Temperature 97.7 F 98.1 F Pulse Rate 81 77 Respiratory Rate 18 18 18 Blood Pressure 123/58 L 136/68 Pulse Oximetry 100 98 Intake & Output 12/26/17 12/27/17 12/27/17 18:59 06:59 18:59 Intake Total 900 / 900 Output Total 500 / 500 1250 / 1250 Balance -500 / -500 -350 / -350 Weight 117 kg 109.2 kg Intake: Oral 900 / 900 Output: Urine 500 / 500 1250 / 1250 Other: Date of Last Bowel Movement 12/26/17 12/26/17 # Bowel Movements 1 Narrative: Subjective Interval history: Had a bowel movement. No n/v. No abd pain. Weakness in her legs is improving. Denies chest pain, shortness of breath. Physical Exam GENERAL: 47 yo F alert and awake CARDIOVASCULAR: Regular rate and rhythm without murmurs, gallops, or rubs. RESPIRATORY: Breath sounds equal bilaterally. No accessory muscle use. GASTROINTESTINAL: Abdomen soft, non-tender, nondistended. : suprapubic cath in place MUSCULOSKELETAL: LE paresis. No cyanosis, or edema. 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 Neuromyelitis optica, transverse myelitis, paraplegia New complains that she is unable to feel with her hands- UE sensation and strength much improved -Returned from [facility] following a one-month stay there. -Continue prednisone 30mg daily, CellCept for 6 months. -Bactrim Wednesday/Wednesday/Wednesday prophylactically. -Continue physical therapy, Occupational Therapy.- patient know and vigilant with exercises - she was instructed what to do this weekend appreciate Neurology seeing patient- MRI spines ordered- unremarkable 12/17- case d/w with Dr. Estrella and Rosemarie- will not do plasmapheresis Diabetes mellitus, insulin-dependent -HgA1C 7.9 (10/05/17) -Blood glucose overall good- difficult with steroids on board - On Levemir 36 units in the morning and 40 units at night with sliding scale insulin and prandial NovoLog. BGs - monitoring Hypertension, chronic essential -Continue metoprolol. Anemia of chronic disease - H&H are stable and no further hematuria Pulmonary embolus - restarted Eliquis-12/16 no plans for permacath anymore Neurogenic bladder Urinary retention -Suprapubic catheter in place. Appreciate urology recommendations. -Suprapubic catheter exchange and upsizing 11/14 - SC changed 12/15 - routine care - and change q 4 weeks Constipation -Bowel regimen. Continue Senokot daily. Tried lactulose, milk milk of magnesia however without bowel movement. Had magnesium citrate. Dulcolax sup prn. monitor BMs DVT prophylaxis Eliquis Full Code CM working with us for SNF placement-[facility] ff- Records from [facility] regarding rituximab admin - Urinary Catheter Management Suprapubic Cath placed during this visit: yes Reason for continuing: Acute urinary retention Insertion date: 12/15/17 Results - Labs CBC & Chem 7: 12/25/17 06:23 12/25/17 10:20 Laboratory Results - last 24 hr 12/26/17 12/26/17 12/26/17 11:28 18:42 20:35 POC Glucose 190 H 302 H 326 H 12/27/17 03:12 POC Glucose 188 H - Procedures none Assessment and Plan - Assessment (1) Neuromyelitis optica Code(s): G36.0 - Neuromyelitis optica [Devic] Status: Acute (2) Pulmonary embolism Code(s): I26.99 - Other pulmonary embolism without acute cor pulmonale Status : Acute (3) DM type 2 (diabetes mellitus, type 2) Code(s): E11.9 - Type 2 diabetes mellitus without complications Status: Acute
[2017-12-27] MEDS: Insulin NovoLOG Aspart Correctional Sugar Inj SQ SCH ×4 (09:32→22:49)
[2017-12-27] MEDS: Baclofen 10 MG Tablet PO SCH ×4 (09:37→22:48)
[2017-12-27] MEDS: Calcium/Vitamin D 250/125 MG Tablet PO SCH (09:37)
[2017-12-27] MEDS: Calcium Acetate 667 MG Capsule PO SCH ×3 (09:38→18:16)
[2017-12-27] MEDS: Ascorbic Acid 500 MG Tablet PO SCH (09:38)
[2017-12-27] MEDS: predniSONE 10 MG Tablet PO SCH (09:39)
[2017-12-27] MEDS: Sulfamethoxazole/Trimethoprim 400/80 MG Tablet PO SCH (09:39)
[2017-12-27] MEDS: Senna/Docusate Sodium 8.6/50 MG Tablet PO SCH ×2 (09:39→22:48)
[2017-12-27] MEDS: Gabapentin 300 MG Capsule PO SCH ×3 (09:39→18:16)
[2017-12-27] MEDS: Insulin Detemir Inj 1,000 UNIT/10 ML Vial SQ SCH ×2 (09:40→22:49)
[2017-12-28] MEDS: Gabapentin 300 MG Capsule PO SCH ×3 (09:16→18:17)
[2017-12-28] MEDS: Senna/Docusate Sodium 8.6/50 MG Tablet PO SCH ×2 (09:16→21:38)
[2017-12-28] MEDS: Calcium Acetate 667 MG Capsule PO SCH ×3 (09:16→18:17)
[2017-12-28] MEDS: Ascorbic Acid 500 MG Tablet PO SCH (09:18)
[2017-12-28] MEDS: Baclofen 10 MG Tablet PO SCH ×4 (09:18→21:38)
[2017-12-28] MEDS: predniSONE 10 MG Tablet PO SCH (09:18)
[2017-12-28] MEDS: Insulin Detemir Inj 1,000 UNIT/10 ML Vial SQ SCH ×2 (09:19→21:40)
[2017-12-28] MEDS: Insulin NovoLOG Aspart Correctional Sugar Inj SQ SCH ×4 (09:19→21:39)
[2017-12-28] MEDS: Calcium/Vitamin D 250/125 MG Tablet PO SCH (09:19)
--- NOTE | 2017-12-28 16:54 | P.PN ---
Physical Exam Vital signs: Vital Signs 12/28/17 00:30 12/28/17 04:45 12/28/17 08:00 Temperature 98 F 98.6 F 98 F Pulse Rate 70 76 71 Respiratory Rate 16 16 20 Blood Pressure 118/67 130/70 128/80 Pulse Oximetry 100 99 98 12/28/17 12:00 12/28/17 16:49 Temperature 98.4 F 98.5 F Pulse Rate 81 81 Respiratory Rate 20 20 Blood Pressure 117/68 112/55 L Pulse Oximetry 100 99 Intake & Output 12/27/17 12/28/17 12/28/17 18:59 06:59 18:59 Intake Total 480 / 480 3050 / 3050 Output Total 1000 / 1000 3650 / 3650 850 / 850 Balance -520 / -520 -600 / -600 -850 / -850 Weight 109.5 kg Intake: Oral 480 / 480 3050 / 3050 Output: Urine 1000 / 1000 850 / 850 Urine Amount (Catheter) 3650 / 3650 Suprapubic 3650 / 3650 Other: Date of Last Bowel Movement 12/26/17 12/26/17 # Bowel Movements 1 Narrative: Subjective Interval history: Had a bowel movement. No n/v. No abd pain. Weakness in her legs is improving. Denies palpitation, chest pain, shortness of breath. No fever or chills. Physical Exam GENERAL: 47 yo F alert and awake CARDIOVASCULAR: Regular rate and rhythm without murmurs, gallops, or rubs. RESPIRATORY: Breath sounds equal bilaterally. No accessory muscle use. GASTROINTESTINAL: Abdomen soft, non-tender, nondistended. : suprapubic cath in place MUSCULOSKELETAL: LE paresis. No cyanosis, or edema. 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 Neuromyelitis optica, transverse myelitis, paraplegia New complains that she is unable to feel with her hands- UE sensation and strength much improved -Returned from [facility] following a one-month stay there. -Continue prednisone 30mg daily, CellCept for 6 months. -Bactrim Wednesday/Wednesday/Wednesday prophylactically. -Continue physical therapy, Occupational Therapy.- patient know and vigilant with exercises - she was instructed what to do this weekend appreciate Neurology seeing patient- MRI spines ordered- unremarkable 12/17- case d/w with Dr. Estrella and oRsemarie- will not do plasmapheresis Diabetes mellitus, insulin-dependent -HgA1C 7.9 (10/05/17) -Blood glucose overall good- difficult with steroids on board - On Levemir 36 units in the morning and 40 units at night with sliding scale insulin and prandial NovoLog. BGs - monitoring Hypertension, chronic essential -Continue metoprolol. Anemia of chronic disease - H&H are stable and no further hematuria Pulmonary embolus - restarted Eliquis-12/16 no plans for permacath anymore Neurogenic bladder Urinary retention -Suprapubic catheter in place. Appreciate urology recommendations. -Suprapubic catheter exchange and upsizing 11/14 - SC changed 12/15 - routine care - and change q 4 weeks Constipation -Bowel regimen. Continue Senokot daily. Tried lactulose, milk milk of magnesia however without bowel movement. Had magnesium citrate. Dulcolax sup prn. monitor BMs DVT prophylaxis Eliquis Full Code CM working with us for SNF placement-[facility] ff- Records from [facility] regarding rituximab admin - Urinary Catheter Management Suprapubic Cath placed during this visit: yes Reason for continuing: Acute urinary retention Insertion date: 12/15/17 Results - Labs CBC & Chem 7: 12/25/17 06:23 12/25/17 10:20 Laboratory Results - last 24 hr 12/27/17 12/27/17 12/28/17 18:14 20:29 03:15 POC Glucose 264 H 245 H 173 H 12/28/17 12/28/17 07:43 12:22 POC Glucose 157 H 237 H - Procedures none Assessment and Plan - Assessment (1) Neuromyelitis optica Code(s): G36.0 - Neuromyelitis optica [Devic] Status: Acute (2) Pulmonary embolism Code(s): I26.99 - Other pulmonary embolism without acute cor pulmonale Status : Acute (3) DM type 2 (diabetes mellitus, type 2) Code(s): E11.9 - Type 2 diabetes mellitus without complications Status: Acute
[2017-12-28] MEDS: diazePAM 5 MG Tablet PO PRN (21:39)
[2017-12-28] MEDS: Nortriptyline 10 MG Capsule PO SCH ×2 (21:39)
--- NOTE | 2017-12-29 08:50 | P.PN ---
Physical Exam Vital signs: Vital Signs 12/28/17 12:00 12/28/17 16:49 12/28/17 21:30 Temperature 98.4 F 98.5 F 97.5 F L Pulse Rate 81 81 65 Respiratory Rate 20 20 16 Blood Pressure 117/68 112/55 L 140/80 Pulse Oximetry 100 99 100 12/29/17 00:15 12/29/17 05:15 Temperature 98 F 98.8 F Pulse Rate 68 63 Respiratory Rate 18 16 Blood Pressure 129/69 125/65 Pulse Oximetry 100 100 Intake & Output 12/28/17 12/29/17 12/29/17 18:59 06:59 18:59 Intake Total 3200 / 3200 Output Total 2725 / 2725 2250 / 2250 Balance -2725 / -2725 950 / 950 Weight 110 kg Intake: Oral 3200 / 3200 Output: Urine 2725 / 2725 Urine Amount (Catheter) 2250 / 2250 Suprapubic 2250 / 2250 Other: # Bowel Movements 1 Narrative: Subjective Interval history: Follow-up normal light is optica, transverse myelitis, paraplegia. Had a small bowel movement. No n/v. No abd pain. Weakness in her legs is the same Denies palpitation, chest pain, shortness of breath. No fever or chills. Physical Exam GENERAL: 47 yo F alert and awake CARDIOVASCULAR: Regular rate and rhythm without murmurs, gallops, or rubs. RESPIRATORY: Breath sounds equal bilaterally. No accessory muscle use. GASTROINTESTINAL: Abdomen soft, non-tender, nondistended. : suprapubic cath in place MUSCULOSKELETAL: LE paresis. No cyanosis, or edema. 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 Neuromyelitis optica, transverse myelitis, paraplegia New complains that she is unable to feel with her hands- UE sensation and strength much improved -Returned from [facility] following a one-month stay there. -Continue prednisone 30mg daily, CellCept for 6 months. -Bactrim Wednesday/Wednesday/Wednesday prophylactically. -Continue physical therapy, Occupational Therapy.- patient know and vigilant with exercises - she was instructed what to do this weekend appreciate Neurology seeing patient- MRI spines ordered- unremarkable 12/17- case d/w with Dr. Estrella and Rosemarie- will not do plasmapheresis Diabetes mellitus, insulin-dependent -HgA1C 7.9 (10/05/17) -Blood glucose overall good- difficult with steroids on board - On Levemir 36 units in the morning and 40 units at night with sliding scale insulin and prandial NovoLog. BGs - monitoring Hypertension, chronic essential -Continue metoprolol. Anemia of chronic disease - H&H are stable and no further hematuria Pulmonary embolus - restarted Eliquis-12/16 no plans for permacath anymore Neurogenic bladder Urinary retention -Suprapubic catheter in place. Appreciate urology recommendations. -Suprapubic catheter exchange and upsizing 11/14 - SC changed 12/15 - routine care - and change q 4 weeks Constipation -Bowel regimen. Continue Senokot daily. Tried lactulose, milk milk of magnesia however without bowel movement. Had magnesium citrate. Dulcolax sup prn. monitor BMs DVT prophylaxis Antwan Full Jose MONSON working with us for SNF placement. Difficult discharge due to placement issues Records from [facility] regarding rituximab admin - Urinary Catheter Management Suprapubic Cath placed during this visit: yes Reason for continuing: Acute urinary retention Insertion date: 12/15/17 Results - Labs CBC & Chem 7: 12/25/17 06:23 12/25/17 10:20 Laboratory Results - last 24 hr 12/28/17 12/28/17 12/28/17 12:22 17:23 20:20 POC Glucose 237 H 274 H 229 H 12/29/17 12/29/17 04:30 07:54 POC Glucose 197 H 149 H - Procedures none Assessment and Plan - Assessment (1) Neuromyelitis optica Code(s): G36.0 - Neuromyelitis optica [Devic] Status: Acute (2) Pulmonary embolism Code(s): I26.99 - Other pulmonary embolism without acute cor pulmonale Status : Acute (3) DM type 2 (diabetes mellitus, type 2) Code(s): E11.9 - Type 2 diabetes mellitus without complications Status: Acute
[2017-12-29] MEDS: Ascorbic Acid 500 MG Tablet PO SCH (09:25)
[2017-12-29] MEDS: Calcium/Vitamin D 250/125 MG Tablet PO SCH (09:26)
[2017-12-29] MEDS: Calcium Acetate 667 MG Capsule PO SCH ×3 (09:27→18:31)
[2017-12-29] MEDS: Senna/Docusate Sodium 8.6/50 MG Tablet PO SCH ×2 (09:27→22:38)
[2017-12-29] MEDS: Baclofen 10 MG Tablet PO SCH ×4 (09:27→22:37)
[2017-12-29] MEDS: predniSONE 10 MG Tablet PO SCH (09:27)
[2017-12-29] MEDS: Gabapentin 300 MG Capsule PO SCH ×3 (09:28→18:31)
[2017-12-29] MEDS: Sulfamethoxazole/Trimethoprim 400/80 MG Tablet PO SCH (09:28)
[2017-12-29] MEDS: Insulin Detemir Inj 1,000 UNIT/10 ML Vial SQ SCH ×2 (09:29→21:10)
[2017-12-29] MEDS: Insulin NovoLOG Aspart Correctional Sugar Inj SQ SCH ×4 (09:31→21:10)
[2017-12-29] MEDS: Nortriptyline 10 MG Capsule PO SCH (22:37)
--- NOTE | 2017-12-30 07:48 | P.PN ---
Physical Exam Vital signs: Vital Signs 12/29/17 08:00 12/29/17 12:00 12/29/17 17:00 Temperature 98.2 F 97.9 F 98.5 F Pulse Rate 72 75 82 Respiratory Rate 20 20 20 Blood Pressure 117/78 136/79 127/77 Pulse Oximetry 98 100 100 12/29/17 20:00 12/30/17 05:00 Temperature 97.8 F 98.0 F Pulse Rate 71 75 Respiratory Rate 18 18 Blood Pressure 138/69 129/70 Pulse Oximetry 99 99 Intake & Output 12/29/17 12/30/17 12/30/17 18:59 06:59 18:59 Intake Total 1949 360 / 360 Output Total 6452 / 6452 1999 Balance -4502 / -4502 -1640 / -1640 Weight 111.5 kg Intake: Oral 1949 360 / 360 Oral Supplement 0 / 0 Output: Urine 4600 / 4600 1999 Stool 2 / 2 Urine Amount (Catheter) 1849 Suprapubic 1849 Other: Date of Last Bowel Movement 12/26/17 # Bowel Movements 1 # Incontinent Bowel Movements 1 Narrative: Subjective Interval history: Follow-up; Neuromyelitis optica, transverse myelitis, paraplegia. Had a normal bowel movement. No n/v. No abd pain. Says she has some back pain at the shoulder blades. PT and OT to give recommendations for in bed exercises. Weakness in her legs is the same. No wounds. Denies palpitation, chest pain, shortness of breath. No fever or chills. Physical Exam GENERAL: 47 yo F alert and awake CARDIOVASCULAR: Regular rate and rhythm without murmurs, gallops, or rubs. RESPIRATORY: Breath sounds equal bilaterally. No accessory muscle use. GASTROINTESTINAL: Abdomen soft, non-tender, nondistended. : suprapubic cath in place MUSCULOSKELETAL: LE paresis. No cyanosis, or edema. 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 Neuromyelitis optica, transverse myelitis, paraplegia New complains that she is unable to feel with her hands- UE sensation and strength much improved -Returned from [facility] following a one-month stay there. -Continue prednisone 30mg daily, CellCept for 6 months. -Bactrim Wednesday/Wednesday/Wednesday prophylactically. -Continue physical therapy, Occupational Therapy.- patient know and vigilant with exercises - she was instructed what to do this weekend appreciate Neurology seeing patient- MRI spines ordered- unremarkable 12/17- case d/w with Dr. Estrella and Rosemarie- will not do plasmapheresis Says she has some back pain at the shoulder blades. PT and OT to give recommendations for in bed exercises. Diabetes mellitus, insulin-dependent -HgA1C 7.9 (10/05/17) -Blood glucose overall good- difficult with steroids on board - On Levemir 36 units in the morning and 40 units at night with sliding scale insulin and prandial NovoLog. BGs - monitoring Hypertension, chronic essential -Continue metoprolol. Anemia of chronic disease - H&H are stable and no further hematuria Pulmonary embolus - restarted Eliquis-12/16 no plans for permacath anymore Neurogenic bladder Urinary retention -Suprapubic catheter in place. Appreciate urology recommendations. -Suprapubic catheter exchange and upsizing 11/14 - SC changed 12/15 - routine care - and change q 4 weeks Constipation -Bowel regimen. Continue Senokot daily. Tried lactulose, milk milk of magnesia however without bowel movement. Had magnesium citrate. Dulcolax sup prn. monitor BMs DVT prophylaxis Antwan Full Code CM working with us for SNF placement. Difficult discharge due to placement issues Records from [facility] regarding rituximab admin - Urinary Catheter Management Suprapubic Cath placed during this visit: yes Reason for continuing: Acute urinary retention Insertion date: 12/15/17 Results - Labs CBC & Chem 7: 12/25/17 06:23 12/25/17 10:20 Laboratory Results - last 24 hr 12/29/17 12/29/17 12/29/17 07:54 12:42 17:24 POC Glucose 149 H 199 H 339 H 12/29/17 12/29/17 12/30/17 21:19 21:22 06:26 POC Glucose 314 H 299 H 124 H - Procedures none Assessment and Plan - Assessment (1) Neuromyelitis optica Code(s): G36.0 - Neuromyelitis optica [Devic] Status: Acute (2) Pulmonary embolism Code(s): I26.99 - Other pulmonary embolism without acute cor pulmonale Status : Acute (3) DM type 2 (diabetes mellitus, type 2) Code(s): E11.9 - Type 2 diabetes mellitus without complications Status: Acute
[2017-12-30] MEDS: Insulin NovoLOG Aspart Correctional Sugar Inj SQ SCH ×4 (07:51→21:46)
[2017-12-30] MEDS: Calcium/Vitamin D 250/125 MG Tablet PO SCH (08:57)
[2017-12-30] MEDS: Baclofen 10 MG Tablet PO SCH ×4 (08:57→21:43)
[2017-12-30] MEDS: Calcium Acetate 667 MG Capsule PO SCH ×3 (08:57→17:25)
[2017-12-30] MEDS: Senna/Docusate Sodium 8.6/50 MG Tablet PO SCH ×2 (08:57→21:43)
[2017-12-30] MEDS: Ascorbic Acid 500 MG Tablet PO SCH (08:57)
[2017-12-30] MEDS: predniSONE 10 MG Tablet PO SCH (08:58)
[2017-12-30] MEDS: Gabapentin 300 MG Capsule PO SCH ×3 (08:58→17:25)
[2017-12-30] MEDS: Insulin Detemir Inj 1,000 UNIT/10 ML Vial SQ SCH ×2 (08:59→21:45)
[2017-12-30] MEDS: Nortriptyline 10 MG Capsule PO SCH (21:43)
[2017-12-31] MEDS: Insulin Detemir Inj 1,000 UNIT/10 ML Vial SQ SCH ×2 (06:30→22:55)
[2017-12-31] MEDS: Insulin NovoLOG Aspart Correctional Sugar Inj SQ SCH ×4 (08:35→22:55)
[2017-12-31] MEDS: Calcium Acetate 667 MG Capsule PO SCH ×3 (08:36→18:27)
--- NOTE | 2017-12-31 09:24 | P.PN ---
Physical Exam Vital signs: Vital Signs 12/30/17 13:33 12/30/17 17:38 12/30/17 20:00 Temperature 98.5 F 98.4 F 98.4 F Pulse Rate 82 80 82 Respiratory Rate 20 20 18 Blood Pressure 133/73 129/80 121/77 Pulse Oximetry 100 100 99 12/31/17 00:00 12/31/17 04:00 12/31/17 07:40 Temperature 98.4 F 98.1 F 98.2 F Pulse Rate 77 77 82 Respiratory Rate 18 18 12 Blood Pressure 106/73 133/70 118/64 Pulse Oximetry 95 99 100 12/31/17 08:24 Temperature Pulse Rate Respiratory Rate 18 Blood Pressure Pulse Oximetry Intake & Output 12/30/17 12/31/17 12/31/17 18:59 06:59 18:59 Output Total 2750 / 2750 1000 / 1000 Balance -2750 / -2750 -1000 / -1000 Weight 111.5 kg Output: Urine 1200 / 1200 1000 / 1000 Urine Amount (Catheter) 1550 / 1550 Suprapubic 1550 / 1550 Other: Date of Last Bowel Movement 12/30/17 Narrative: Subjective Interval history: Follow-up: Neuromyelitis optica, transverse myelitis, paraplegia. In bed doesn't appear in acute distress. No n/v. No abd pain. Back pain at the shoulder blades. To work with OT Weakness in her legs is the same. Denies palpitations, chest pain, shortness of breath. No fever or chills. Physical Exam GENERAL: 47 yo F alert and awake CARDIOVASCULAR: Regular rate and rhythm without murmurs, gallops, or rubs. RESPIRATORY: Breath sounds equal bilaterally. No accessory muscle use. GASTROINTESTINAL: Abdomen soft, non-tender, nondistended. : suprapubic cath in place MUSCULOSKELETAL: LE paresis. No cyanosis, or edema. 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 Neuromyelitis optica, transverse myelitis, paraplegia New complains that she is unable to feel with her hands- UE sensation and strength much improved -Returned from [facility] following a one-month stay there. -Continue prednisone 30mg daily, CellCept for 6 months. -Bactrim Wednesday/Wednesday/Wednesday prophylactically. -Continue physical therapy, Occupational Therapy.- patient know and vigilant with exercises - she was instructed what to do this weekend appreciate Neurology seeing patient- MRI spines ordered- unremarkable 12/17- case d/w with Dr. Estrella and Rosemarie- will not do plasmapheresis Says she has some back pain at the shoulder blades. PT and OT to give recommendations for in bed exercises. Diabetes mellitus, insulin-dependent -HgA1C 7.9 (10/05/17) -Blood glucose overall good- difficult with steroids on board - On Levemir 36 units in the morning and 40 units at night with sliding scale insulin and prandial NovoLog. BGs - monitoring Hypertension, chronic essential -Continue metoprolol. Anemia of chronic disease - H&H are stable and no further hematuria Pulmonary embolus - restarted Eliquis-12/16 no plans for permacath anymore Neurogenic bladder Urinary retention -Suprapubic catheter in place. Appreciate urology recommendations. -Suprapubic catheter exchange and upsizing 11/14 - SC changed 12/15 - routine care - and change q 4 weeks Constipation -Bowel regimen. Continue Senokot daily. Tried lactulose, milk milk of magnesia however without bowel movement. Had magnesium citrate. Dulcolax sup prn. monitor BMs DVT prophylaxis Elimelly Full Code CM working with us for SNF placement. Difficult discharge due to placement issues Records from [facility] regarding rituximab admin - Urinary Catheter Management Suprapubic Cath placed during this visit: yes Reason for continuing: Acute urinary retention Insertion date: 12/15/17 Results - Labs CBC & Chem 7: 12/25/17 06:23 12/25/17 10:20 Laboratory Results - last 24 hr 12/30/17 12/30/17 12/30/17 12:02 16:45 20:42 POC Glucose 178 H 290 H 305 H 12/31/17 12/31/17 03:13 08:33 POC Glucose 203 H 154 H - Procedures none Assessment and Plan - Assessment (1) Neuromyelitis optica Code(s): G36.0 - Neuromyelitis optica [Devic] Status: Acute (2) Pulmonary embolism Code(s): I26.99 - Other pulmonary embolism without acute cor pulmonale Status : Acute (3) DM type 2 (diabetes mellitus, type 2) Code(s): E11.9 - Type 2 diabetes mellitus without complications Status: Acute
[2017-12-31] MEDS: Baclofen 10 MG Tablet PO SCH ×4 (09:56→22:52)
[2017-12-31] MEDS: predniSONE 10 MG Tablet PO SCH (09:57)
[2017-12-31] MEDS: Calcium/Vitamin D 250/125 MG Tablet PO SCH (09:57)
[2017-12-31] MEDS: Gabapentin 300 MG Capsule PO SCH ×3 (09:57→18:27)
[2017-12-31] MEDS: Ascorbic Acid 500 MG Tablet PO SCH (09:58)
[2017-12-31] MEDS: Sulfamethoxazole/Trimethoprim 400/80 MG Tablet PO SCH (09:59)
[2017-12-31] MEDS: Senna/Docusate Sodium 8.6/50 MG Tablet PO SCH ×2 (09:59→22:52)
[2017-12-31] MEDS: Nortriptyline 10 MG Capsule PO SCH (22:53)
[2018-01-01] MEDS: Calcium/Vitamin D 250/125 MG Tablet PO SCH (09:43)
[2018-01-01] MEDS: Ascorbic Acid 500 MG Tablet PO SCH (09:43)
[2018-01-01] MEDS: Gabapentin 300 MG Capsule PO SCH ×3 (09:43→17:42)
[2018-01-01] MEDS: Baclofen 10 MG Tablet PO SCH ×4 (09:44→22:26)
[2018-01-01] MEDS: predniSONE 10 MG Tablet PO SCH (09:44)
[2018-01-01] MEDS: Calcium Acetate 667 MG Capsule PO SCH ×3 (09:44→17:42)
[2018-01-01] MEDS: Senna/Docusate Sodium 8.6/50 MG Tablet PO SCH ×2 (09:44→22:27)
[2018-01-01] MEDS: Insulin NovoLOG Aspart Correctional Sugar Inj SQ SCH ×4 (09:45→22:27)
[2018-01-01] MEDS: Insulin Detemir Inj 1,000 UNIT/10 ML Vial SQ SCH ×2 (09:45→22:27)
--- NOTE | 2018-01-01 11:26 | P.PN ---
Physical Exam Vital signs: Vital Signs 12/31/17 12:00 12/31/17 20:00 01/01/18 01:03 Temperature 97.7 F 98.5 F 97.8 F Pulse Rate 90 79 99 H Respiratory Rate 18 Blood Pressure 109/71 117/71 138/77 Pulse Oximetry 98 99 95 01/01/18 04:00 01/01/18 08:00 Temperature 98.6 F 98.5 F Pulse Rate 90 78 Respiratory Rate 18 18 Blood Pressure 120/60 118/76 Pulse Oximetry 97 100 Intake & Output 12/31/17 01/01/18 01/01/18 18:59 06:59 18:59 Output Total 1600 / 1600 Balance -1600 / -1600 Weight 111.3 kg Output: Urine 1600 / 1600 Narrative: Subjective Interval history: Follow-up: Neuromyelitis optica, transverse myelitis, paraplegia. The patient is in chair today, doesn't appear in acute distress. No n/v. No abd pain. Back pain at the shoulder blades improved. Weakness in her legs is the same. Denies palpitations, chest pain, shortness of breath. No fever or chills. Physical Exam GENERAL: 47 yo F alert and awake CARDIOVASCULAR: Regular rate and rhythm without murmurs, gallops, or rubs. RESPIRATORY: Breath sounds equal bilaterally. No accessory muscle use. GASTROINTESTINAL: Abdomen soft, non-tender, nondistended. : suprapubic cath in place MUSCULOSKELETAL: LE paresis. No cyanosis, or edema. 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 Neuromyelitis optica, transverse myelitis, paraplegia New complains that she is unable to feel with her hands- UE sensation and strength much improved -Returned from [facility] following a one-month stay there. -Continue prednisone 30mg daily, CellCept for 6 months. -Bactrim Wednesday/Wednesday/Wednesday prophylactically. -Continue physical therapy, Occupational Therapy.- patient know and vigilant with exercises - she was instructed what to do this weekend appreciate Neurology seeing patient- MRI spines ordered- unremarkable 12/17- case d/w with Dr. Tavarez- will not do plasmapheresis Says she has some back pain at the shoulder blades. PT and OT to give recommendations for in bed exercises. Diabetes mellitus, insulin-dependent -HgA1C 7.9 (10/05/17) -Blood glucose overall good- difficult with steroids on board - On Levemir 36 units in the morning and 40 units at night with sliding scale insulin and prandial NovoLog. BGs - monitoring Hypertension, chronic essential -Continue metoprolol. Anemia of chronic disease - H&H are stable and no further hematuria Pulmonary embolus - restarted Eliquis-12/16 no plans for permacath anymore Neurogenic bladder Urinary retention -Suprapubic catheter in place. Appreciate urology recommendations. -Suprapubic catheter exchange and upsizing 11/14 - SC changed 12/15 - routine care - and change q 4 weeks Constipation -Bowel regimen. Continue Senokot daily. Tried lactulose, milk milk of magnesia however without bowel movement. Had magnesium citrate. Dulcolax sup prn. monitor BMs DVT prophylaxis Antwan Full Code CM working with us for SNF placement. Difficult discharge due to placement issues Records from [facility] regarding rituximab admin - Urinary Catheter Management Suprapubic Cath placed during this visit: yes Reason for continuing: Chronic Urinary Retention Insertion date: 12/15/17 Results - Labs CBC & Chem 7: 12/25/17 06:23 12/25/17 10:20 Laboratory Results - last 24 hr 12/31/17 12/31/17 12/31/17 13:20 16:49 21:37 POC Glucose 151 H 301 H 248 H 01/01/18 01/01/18 03:20 07:27 POC Glucose 115 H 110 - Procedures none Assessment and Plan - Assessment (1) Neuromyelitis optica Code(s): G36.0 - Neuromyelitis optica [Devic] Status: Acute (2) Pulmonary embolism Code(s): I26.99 - Other pulmonary embolism without acute cor pulmonale Status : Acute (3) DM type 2 (diabetes mellitus, type 2) Code(s): E11.9 - Type 2 diabetes mellitus without complications Status: Acute
[2018-01-01] MEDS: Nortriptyline 10 MG Capsule PO SCH (22:26)
[2018-01-02] MEDS: diazePAM 5 MG Tablet PO PRN (01:30)
--- NOTE | 2018-01-02 08:30 | P.PN ---
Physical Exam Vital signs: Vital Signs 01/01/18 12:00 01/01/18 16:00 01/02/18 01:49 Temperature 98.6 F 98.7 F 98.5 F Pulse Rate 96 H 80 86 Respiratory Rate 18 18 18 Blood Pressure 107/73 109/72 116/62 Pulse Oximetry 100 99 92 L 01/02/18 04:24 01/02/18 06:00 Temperature 98.3 F 98 F Pulse Rate 82 70 Respiratory Rate 18 18 Blood Pressure 115/77 172/77 H Pulse Oximetry 99 100 Intake & Output 01/01/18 01/02/18 01/02/18 18:59 06:59 18:59 Weight 111 kg Other: Date of Last Bowel Movement 01/02/18 Weight On Admission 70 kg Narrative: Subjective Interval history: Follow-up: Neuromyelitis optica, transverse myelitis, paraplegia. Did not sleep well last night. Says she had more pain in her back, doesn't appear in acute distress. No n/v. No abd pain. Weakness in her legs is the same. Denies palpitations, chest pain, shortness of breath. No fever or chills. Physical Exam GENERAL: 47 yo F alert and awake CARDIOVASCULAR: Regular rate and rhythm without murmurs, gallops, or rubs. RESPIRATORY: Breath sounds equal bilaterally. No accessory muscle use. GASTROINTESTINAL: Abdomen soft, non-tender, nondistended. : suprapubic cath in place MUSCULOSKELETAL: LE paresis. No cyanosis, or edema. 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 Neuromyelitis optica, transverse myelitis, paraplegia New complains that she is unable to feel with her hands- UE sensation and strength much improved -Returned from [facility] following a one-month stay there. -Continue prednisone 30mg daily, CellCept for 6 months. -Bactrim Wednesday/Wednesday/Wednesday prophylactically. -Continue physical therapy, Occupational Therapy.- patient know and vigilant with exercises - she was instructed what to do this weekend appreciate Neurology seeing patient- MRI spines ordered- unremarkable 12/17- case d/w with Dr. Fulop and Rosemarie- will not do plasmapheresis Says she has some back pain at the shoulder blades. PT and OT to give recommendations for in bed exercises. Diabetes mellitus, insulin-dependent -HgA1C 7.9 (10/05/17) -Blood glucose overall good- difficult with steroids on board - On Levemir 36 units in the morning and 40 units at night with sliding scale insulin and prandial NovoLog. BGs - monitoring Hypertension, chronic essential -Continue metoprolol. Anemia of chronic disease - H&H are stable and no further hematuria Pulmonary embolus - restarted Eliquis-12/16 no plans for permacath anymore Neurogenic bladder Urinary retention -Suprapubic catheter in place. Appreciate urology recommendations. -Suprapubic catheter exchange and upsizing 11/14 - SC changed 12/15 - routine care - and change q 4 weeks Constipation -Bowel regimen. Continue Senokot daily. Tried lactulose, milk milk of magnesia however without bowel movement. Had magnesium citrate. Dulcolax sup prn. monitor BMs DVT prophylaxis Antwan Full Code CM working with us for SNF placement. Difficult discharge due to placement issues Records from [facility] regarding rituximab admin - Urinary Catheter Management Suprapubic Cath placed during this visit: yes Reason for continuing: Chronic Urinary Retention Insertion date: 12/15/17 Results - Labs CBC & Chem 7: 12/25/17 06:23 12/25/17 10:20 Laboratory Results - last 24 hr 01/01/18 01/01/18 01/01/18 12:21 17:34 22:07 POC Glucose 101 299 H 372 H 01/02/18 01/02/18 03:49 07:40 POC Glucose 180 H 215 H - Procedures none Assessment and Plan - Assessment (1) Neuromyelitis optica Code(s): G36.0 - Neuromyelitis optica [Devic] Status: Acute (2) Pulmonary embolism Code(s): I26.99 - Other pulmonary embolism without acute cor pulmonale Status : Acute (3) DM type 2 (diabetes mellitus, type 2) Code(s): E11.9 - Type 2 diabetes mellitus without complications Status: Acute
[2018-01-02] MEDS: Calcium Acetate 667 MG Capsule PO SCH ×3 (09:30→17:09)
[2018-01-02] MEDS: Calcium/Vitamin D 250/125 MG Tablet PO SCH (09:30)
[2018-01-02] MEDS: Baclofen 10 MG Tablet PO SCH ×4 (09:30→23:06)
[2018-01-02] MEDS: Senna/Docusate Sodium 8.6/50 MG Tablet PO SCH ×2 (09:30→23:05)
[2018-01-02] MEDS: predniSONE 10 MG Tablet PO SCH (09:30)
[2018-01-02] MEDS: Gabapentin 300 MG Capsule PO SCH ×3 (09:30→17:09)
[2018-01-02] MEDS: Insulin NovoLOG Aspart Correctional Sugar Inj SQ SCH ×4 (09:31→23:37)
[2018-01-02] MEDS: Ascorbic Acid 500 MG Tablet PO SCH (09:31)
[2018-01-02] MEDS: Insulin Detemir Inj 1,000 UNIT/10 ML Vial SQ SCH ×2 (09:32→23:37)
[2018-01-02] MEDS: Nortriptyline 10 MG Capsule PO SCH (23:05)
--- NOTE | 2018-01-03 07:58 | P.PN ---
Subjective Interval history: Follow-up: Neuromyelitis optica, transverse myelitis, paraplegia. Patient seen and examined. Patient denies any acute medical complaints today. States she feels that the strength in her upper extremities is improving. She denies any headache or vision changes. She denies any chest pain or shortness of breath. She denies any nausea, vomiting or abdominal pain. Physical Exam Vital signs: Vital Signs 01/02/18 10:27 01/02/18 12:00 01/02/18 16:00 Temperature 98.1 F 98.1 F 98.2 F Pulse Rate 80 84 84 Respiratory Rate 18 18 18 Blood Pressure 147/91 H 126/82 122/80 Pulse Oximetry 98 99 99 01/03/18 00:00 01/03/18 00:04 Temperature 97.6 F 97.9 F Pulse Rate 87 83 Respiratory Rate 18 Blood Pressure 134/79 140/71 Pulse Oximetry 98 100 Intake & Output 01/02/18 01/03/18 01/03/18 18:59 06:59 18:59 Output Total 1650 / 1650 Balance -1650 / -1650 Output: Urine Amount (Catheter) 1650 / 1650 Suprapubic 1650 / 1650 Other: Date of Last Bowel Movement 01/02/18 01/02/18 # Incontinent Bowel Movements 1 Narrative: GENERAL: WDWN female, INAD. Awake and alert. Sitting in bedside chair. SKIN: Warm and dry. HEAD: Atraumatic. Normocephalic. EYES: Pupils equal and round. No scleral icterus. No injection or drainage. ENT: No nasal bleeding or discharge. Mucous membranes pink and moist. NECK: Trachea midline. No JVD. CARDIOVASCULAR: Regular rate and rhythm. RESPIRATORY: No accessory muscle use. Clear to auscultation. Breath sounds equal bilaterally. GASTROINTESTINAL: Abdomen soft, non-tender, nondistended. +BS. : suprapubic catheter in place MUSCULOSKELETAL: Extremities without clubbing, cyanosis, or edema. No obvious deformities. NEUROLOGICAL: Awake and alert. No obvious cranial nerve deficits. Decreased motor function bilateral UEs. BLE paresis. Normal speech. PSYCHIATRIC: Appropriate mood and affect; insight and judgment normal. - Urinary Catheter Management Suprapubic Cath placed during this visit: yes Reason for continuing: Chronic Urinary Retention Insertion date: 12/15/17 Results - Labs CBC & Chem 7: 01/03/18 12:15 01/03/18 12:15 Laboratory Results - last 24 hr 01/02/18 01/02/18 01/02/18 07:40 11:08 16:41 POC Glucose 215 H 218 H 301 H 01/02/18 01/03/18 23:04 04:18 POC Glucose 212 H 163 H - Imaging ITS Impressions Chest X-Ray 11/29/17 00:00 CONCLUSION: Negative for an acute process Cervical Spine MRI 12/15/17 00:00 CONCLUSION: Thoracic Spine MRI 12/15/17 00:00 CONCLUSION: Tube Change 12/15/17 00:00 CONCLUSION: 1. Uncomplicated suprapubic catheter exchange. 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 Neuromyelitis optica, transverse myelitis, paraplegia New complaints unable to feel with her hands- UE sensation and strength much improved -Returned from [facility] following a one-month stay there. -Continue prednisone 30mg daily, CellCept for 6 months. -Bactrim Wednesday/Wednesday/Wednesday prophylactically. -Continue physical therapy, Occupational Therapy.- patient know and vigilant with exercises - she was instructed what to do this weekend appreciate Neurology seeing patient- MRI spines ordered- unremarkable 12/17- case d/w with Dr. Estrella and Rosemarie- will not do plasmapheresis,. Rituxin due this month. Diabetes mellitus, insulin-dependent HgA1C 7.9 (10/05/17) Blood glucose overall good- difficult with steroids on board - continue on Levemir 30u daily and 25 units at night and 12u Novolog preprandial - continue accucheks and ISS Hypertension, chronic essential - Continue metoprolol. Anemia of chronic disease - H&H are stable and no further hematuria Pulmonary embolus - restarted Eliquis-12/16 no plans for permacath anymore Neurogenic bladder Urinary retention - Suprapubic catheter in place. Appreciate urology recommendations. - Suprapubic catheter exchange and upsizing 11/14 - SC changed 12/15 - routine care - and change q 4 weeks Constipation - Bowel regimen. Continue Senokot daily. Tried lactulose, milk milk of magnesia however without bowel movement. Had magnesium citrate. Dulcolax sup prn. monitor BMs DVT prophylaxis Eliquis Code Status: FULL Discussed Condition With: patient, nursing staff, CM Discharge Planning: Difficult placement. CM assists with ongoing discharge planning.
[2018-01-03] MEDS: Ascorbic Acid 500 MG Tablet PO SCH (10:07)
[2018-01-03] MEDS: Sulfamethoxazole/Trimethoprim 400/80 MG Tablet PO SCH (10:08)
[2018-01-03] MEDS: Calcium Acetate 667 MG Capsule PO SCH ×3 (10:09→17:15)
[2018-01-03] MEDS: Senna/Docusate Sodium 8.6/50 MG Tablet PO SCH ×2 (10:10→22:27)
[2018-01-03] MEDS: Gabapentin 300 MG Capsule PO SCH ×3 (10:10→17:15)
[2018-01-03] MEDS: Baclofen 10 MG Tablet PO SCH ×4 (10:11→22:27)
[2018-01-03] MEDS: predniSONE 10 MG Tablet PO SCH (10:11)
[2018-01-03] MEDS: Insulin NovoLOG Aspart Correctional Sugar Inj SQ SCH ×4 (10:13→22:30)
[2018-01-03] MEDS: Calcium/Vitamin D 250/125 MG Tablet PO SCH (10:14)
[2018-01-03] MEDS: Insulin Detemir Inj 1,000 UNIT/10 ML Vial SQ SCH ×2 (10:38→22:31)
[2018-01-03 12:58] LABS: Baso % (Auto) 0.2 % (0.0-2.0); Eos # (Auto) 0.1 th/mm3 (0.0-0.4); Eos % (Auto) 0.8 % (0.0-4.0); Hematocrit 38.4 % (35.0-46.0); Hemoglobin 12.4 gm/dL (11.6-15.3); Lymph # (Auto) 3.3 th/mm3 (1.0-4.8); Lymph % (Auto) 41.9 % (9.0-44.0); Mean Corpuscular HGB Conc 32.2 % (32.0-36.0); Mean Corpuscular Hemoglobin 26.8 pg (27.0-34.0); Mean Corpuscular Volume 83.1 fL (80.0-100.0); Mono # (Auto) 0.5 th/mm3 (0.0-0.9); Mono % (Auto) 6.7 % (0.0-8.0); Neut # (Auto) 3.9 th/mm3 (1.8-7.7); Neut % (Auto) 50.4 % (16.0-70.0); Platelet Count 194 th/mm3 (150-450); Red Blood Count 4.63 mil/mm3 (4.00-5.30); Red Cell Distribution Width 16.7 % (11.6-17.2); White Blood Count 7.8 th/mm3 (4.0-11.0)
[2018-01-03 13:27] LABS: Alanine Aminotransferase 46 U/L (10-53); Albumin 3.5 g/dL (3.4-5.0); Anion Gap 7 meq/L (5-15); Aspartate Aminotransferase 19 U/L (15-37); Blood Urea Nitrogen 12 mg/dL (7-18); Calcium 8.8 mg/dL (8.5-10.1); Carbon Dioxide 30.3 meq/L (21.0-32.0); Chloride 104 meq/L (98-107); Glomerular Filtration Rate Greater Than 89 mL/min (>89); Glucose,Random 153 mg/dL (74-106); Magnesium 1.8 mg/dL (1.5-2.5); Potassium 3.6 meq/L (3.5-5.1); Sodium 141 meq/L (136-145)
[2018-01-03 13:30] LABS: Alkaline Phosphatase 75 U/L (45-117); Phosphorus 2.7 mg/dL (2.5-4.9); Total Protein 7.2 g/dL (6.4-8.2)
[2018-01-03] MEDS: Nortriptyline 10 MG Capsule PO SCH (22:26)
--- NOTE | 2018-01-04 07:52 | P.PN ---
Subjective Interval history: Follow-up: Neuromyelitis optica, transverse myelitis, paraplegia. Patient seen and examined. Patient states she feels well. She denies any new medical complaints. States the strength, numbness and tingling in bilateral hands has improved. She is asking about IVIG treatments. States her last Rituxan infusion was in Jun. Discussed with nursing staff, no acute issues noted. Physical Exam Vital signs: Vital Signs 01/03/18 08:14 01/03/18 09:54 01/03/18 15:55 Temperature 97.3 F L 98.3 F Pulse Rate 87 79 91 H Respiratory Rate Blood Pressure 138/72 133/77 134/60 Pulse Oximetry 100 98 100 01/03/18 20:00 01/04/18 00:00 01/04/18 04:00 Temperature 98.3 F 98.0 F 98.6 F Pulse Rate 85 95 H 103 H Respiratory Rate Blood Pressure 152/87 H 115/76 115/65 Pulse Oximetry 100 99 98 Intake & Output 01/03/18 01/04/18 01/04/18 18:59 06:59 18:59 Intake Total 480 / 480 Output Total 502 / 502 2600 / 2600 Balance -22 / -22 -2600 / -2600 Weight 106.5 kg Intake: Oral 480 / 480 Output: Urine 500 / 500 2600 / 2600 Stool 2 / 2 Other: Date of Last Bowel Movement 01/03/18 01/03/18 Narrative: GENERAL: WDWN female, INAD. Awake and alert. Sitting up in bed. SKIN: Warm and dry. No generalized rash. HEAD: Atraumatic. Normocephalic. EYES: Pupils equal and round. No scleral icterus. No injection or drainage. ENT: No nasal bleeding or discharge. Mucous membranes pink and moist. NECK: Trachea midline. No JVD. CARDIOVASCULAR: Regular rate and rhythm. RESPIRATORY: No accessory muscle use. Clear to auscultation anteriorly. Breath sounds equal bilaterally. GASTROINTESTINAL: Abdomen soft, non-tender, nondistended. +BS. : suprapubic catheter in place MUSCULOSKELETAL: Extremities without clubbing, cyanosis, or edema. No obvious deformities. NEUROLOGICAL: Awake and alert. No obvious cranial nerve deficits. Decreased motor function bilateral UEs. BLE paresis. Normal speech. PSYCHIATRIC: Appropriate mood and affect; insight and judgment normal. - Urinary Catheter Management Suprapubic Cath placed during this visit: yes Reason for continuing: Chronic Urinary Retention Insertion date: 12/15/17 Results - Labs CBC & Chem 7: 01/03/18 12:15 01/03/18 12:15 Laboratory Results - last 24 hr 01/03/18 01/03/18 01/03/18 07:52 11:58 12:15 WBC 7.8 RBC 4.63 Hgb 12.4 Hct 38.4 MCV 83.1 MCH 26.8 L MCHC 32.2 RDW 16.7 Plt Count 194 MPV 9.0 Neut % (Auto) 50.4 Lymph % (Auto) 41.9 Gilchrist % (Auto) 6.7 Eos % (Auto) 0.8 Baso % (Auto) 0.2 Neut # (Auto) 3.9 Lymph # (Auto) 3.3 Gilchrist # (Auto) 0.5 Eos # (Auto) 0.1 Baso # (Auto) 0.0 WBC Differential . Differential Comment Auto diff final Sodium Potassium Chloride Carbon Dioxide Anion Gap BUN Creatinine Estimated GFR POC Glucose 227 H 174 H Random Glucose Calcium Phosphorus Magnesium Total Bilirubin AST ALT Alkaline Phosphatase Total Protein Albumin 01/03/18 01/03/18 01/03/18 12:15 16:48 21:44 WBC RBC Hgb Hct MCV MCH MCHC RDW Plt Count MPV Neut % (Auto) Lymph % (Auto) Gilchrist % (Auto) Eos % (Auto) Baso % (Auto) Neut # (Auto) Lymph # (Auto) Gilchrist # (Auto) Eos # (Auto) Baso # (Auto) WBC Differential Differential Comment Sodium 141 Potassium 3.6 Chloride 104 Carbon Dioxide 30.3 Anion Gap 7 BUN 12 Creatinine 0.69 Estimated GFR Greater than 89 POC Glucose 294 H 242 H Random Glucose 153 H Calcium 8.8 Phosphorus 2.7 Magnesium 1.8 Total Bilirubin 0.5 AST 19 ALT 46 Alkaline Phosphatase 75 Total Protein 7.2 Albumin 3.5 01/04/18 05:28 WBC RBC Hgb Hct MCV MCH MCHC RDW Plt Count MPV Neut % (Auto) Lymph % (Auto) Gilchrist % (Auto) Eos % (Auto) Baso % (Auto) Neut # (Auto) Lymph # (Auto) Gilchrist # (Auto) Eos # (Auto) Baso # (Auto) WBC Differential Differential Comment Sodium Potassium Chloride Carbon Dioxide Anion Gap BUN Creatinine Estimated GFR POC Glucose 223 H Random Glucose Calcium Phosphorus Magnesium Total Bilirubin AST ALT Alkaline Phosphatase Total Protein Albumin - Imaging ITS Impressions Chest X-Ray 11/29/17 00:00 CONCLUSION: Negative for an acute process Cervical Spine MRI 12/15/17 00:00 CONCLUSION: Thoracic Spine MRI 12/15/17 00:00 CONCLUSION: Tube Change 12/15/17 00:00 CONCLUSION: 1. Uncomplicated suprapubic catheter exchange. 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 Neuromyelitis optica, transverse myelitis, paraplegia New complaints unable to feel with her hands- UE sensation and strength much improved - Returned from [facility] following a one-month stay there. - Continue prednisone 30mg daily, CellCept for 6 months. Obtain CellCept level. - Bactrim Wednesday/Wednesday/Wednesday prophylactically. - Continue physical therapy, Occupational Therapy.- patient know and vigilant with exercises appreciate Neurology seeing patient- MRI spines ordered- unremarkable 12/17- case d/w with Dr. Estrella and Rosemarie- will not do plasmapheresis,. Rituxin due this month. 01/04 patient asking about possible IVIG treatments. Will reconsult hematology/ oncology and neurology to assist with further treatment including IV Rituxin. Appreciate assistance. Diabetes mellitus, insulin-dependent HgA1C 7.9 (10/05/17) Blood glucose overall good- difficult with steroids on board - required 17u coverage yesterday. Increase prandial Novolog to 15u. - continue on Levemir 30u daily and 25 units at night. - continue accucheks and ISS Hypertension, chronic essential - Continue metoprolol Anemia of chronic disease - H&H are stable and no further hematuria - Continue to monitor CBC as indicated Pulmonary embolus - restarted Eliquis-12/16 no plans for permacath anymore Neurogenic bladder Urinary retention - Suprapubic catheter in place. Appreciate urology recommendations. - Suprapubic catheter exchange and upsizing 11/14 - SC changed 12/15 - routine care - and change q 4 weeks Constipation - Bowel regimen. Continue Senokot daily. Tried lactulose, milk milk of magnesia however without bowel movement. Had magnesium citrate. Dulcolax sup prn. monitor BMs DVT prophylaxis Eliquis Code Status: FULL Discussed Condition With: patient, nursing staff, Dr. Torres, CM Discharge Planning: Difficult placement. CM assists with ongoing discharge planning.
[2018-01-04] MEDS: Baclofen 10 MG Tablet PO SCH ×4 (09:00→20:58)
[2018-01-04] MEDS: Gabapentin 300 MG Capsule PO SCH ×3 (09:01→17:52)
[2018-01-04] MEDS: Calcium/Vitamin D 250/125 MG Tablet PO SCH (09:01)
[2018-01-04] MEDS: Ascorbic Acid 500 MG Tablet PO SCH (09:01)
[2018-01-04] MEDS: Calcium Acetate 667 MG Capsule PO SCH ×3 (09:01→17:49)
[2018-01-04] MEDS: Insulin Detemir Inj 1,000 UNIT/10 ML Vial SQ SCH ×2 (09:02→20:59)
[2018-01-04] MEDS: predniSONE 10 MG Tablet PO SCH (09:02)
[2018-01-04] MEDS: Insulin NovoLOG Aspart Correctional Sugar Inj SQ SCH ×4 (09:02→20:59)
[2018-01-04] MEDS: Senna/Docusate Sodium 8.6/50 MG Tablet PO SCH ×2 (09:03→20:58)
[2018-01-04] MEDS: diazePAM 5 MG Tablet PO PRN (13:05)
[2018-01-04] MEDS ORDERED: Vancomycin Inj 1,000 MG in Sodium Chlor 0.9% Inj 250 ML IV.SIG SCH (14:00)
--- NOTE | 2018-01-04 17:08 | P.PNNEU ---
Subjective Subjective Comments: Cross cover Patient with history of neuromyelitis optica since May 2017. Has received plasma exchange and IV rituximab treatments then. Said paraparesis since that time. Last eye rituximab patient states was June 2017 and she is scheduled to get every 6 months No acute events reported No headache No chest pain No dyspnea Active Medications: Active Medications Acetaminophen (Tylenol) 650 mg PO Q4H PRN PRN Reason: TEMP>100.4 Al Hydroxide/Mg Hydroxide (Milk Of Magnesia Liq) 30 ml PO Q12H PRN PRN Reason: Mild Constipation Last Admin: 12/20/17 05:12 Dose: 30 ml Apixaban (Eliquis) 5 mg PO BID [facility] Last Admin: 01/04/18 09:01 Dose: 5 mg Artificial Tears (Tears Naturale Opth Drops) 2 drop EACH EYE Q4H PRN PRN Reason: DRY EYES Last Admin: 12/05/17 15:31 Dose: 2 drop Ascorbic Acid (Vitamin C) 250 mg PO DAILY [facility] Last Admin: 01/04/18 09:01 Dose: 250 mg Baclofen (Lioresal) 30 mg PO QID [facility] Last Admin: 01/04/18 12:57 Dose: 30 mg Bisacodyl (Dulcolax Supp) 10 mg RECTAL DAILY PRN PRN Reason: SEVERE CONSITIPATION Last Admin: 12/25/17 13:24 Dose: 10 mg Calcium Acetate (Phoslo) 667 mg PO TIDAC [facility] Last Admin: 01/04/18 12:58 Dose: 667 mg Calcium/Vitamin D (Oscal With D 250/125 Mg) 2 tab PO DAILY [facility] Last Admin: 01/04/18 09:01 Dose: 2 tab Clonidine HCl (Catapres) 0.1 mg PO Q6H PRN PRN Reason: SBP>160, DBP>90 Dextrose (D50w Vial) 50 ml IV.PUSH UNSCH PRN PRN Reason: PER HYPOGLYCEMIA PROTOCOL Diazepam (Valium) 5 mg PO Q8H PRN PRN Reason: MUSCLE SPASM Last Admin: 01/04/18 13:05 Dose: 5 mg Diphenhydramine HCl (Benadryl Liq) 25 mg PO Q6H PRN PRN Reason: ITCHING Docusate Sodium (Colace) 100 mg PO DAILY PRN PRN Reason: CONSTIPATION Last Admin: 11/28/17 14:17 Dose: 100 mg Gabapentin (Neurontin) 300 mg PO TID [facility] Last Admin: 01/04/18 12:58 Dose: 300 mg Glucagon (Glucagon Inj) 1 mg OTHER PRN PRN PRN Reason: for Hypoglycemia Protocol Vancomycin HCl 1,000 mg/ (Sodium Chloride) 250 mls @ 200 mls/hr IV.SIG INVENTORY CONTROLLER [facility] Insulin Aspart (Novolog Inj) 15 units SQ TIDAC [facility] Insulin Aspart (Novolog Insulin Correctional Sugar Inj) 0 unit SQ ACHS [facility]; Protocol Last Admin: 01/04/18 12:59 Dose: 2 unit Insulin Detemir (Levemir Inj) 30 unit SQ AC BREAKFAST [facility] Last Admin: 01/04/18 09:02 Dose: 30 unit Insulin Detemir (Levemir Inj) 25 unit SQ HS [facility] Last Admin: 01/03/18 22:31 Dose: 25 unit Lactulose (Lactulose Liq) 30 ml PO DAILY PRN PRN Reason: SEVERE CONSITIPATION Last Admin: 12/23/17 08:10 Dose: 30 ml Metoprolol Succinate (Toprol Xl) 25 mg PO DAILY [facility] Last Admin: 01/04/18 09:02 Dose: 25 mg Mycophenolate Mofetil (Cellcept) 500 mg PO BID@0600,1800 [facility] Last Admin: 01/04/18 06:11 Dose: 500 mg Naloxone HCl (Narcan Inj) 0.4 mg IV.PUSH UNSCH PRN PRN Reason: SEE LABEL COMMENTS Nortriptyline HCl (Pamelor) 10 mg PO [facility] Last Admin: 01/03/18 22:26 Dose: 10 mg Oxycodone HCl (Roxicodone) 5 mg PO Q4H PRN PRN Reason: PAIN 6-10 Last Admin: 01/04/18 09:15 Dose: 5 mg Pantoprazole Sodium (Protonix) 40 mg PO DAILY [facility] Last Admin: 01/04/18 09:02 Dose: 40 mg Potassium Chloride (Klor-Con 10) 30 meq PO DAILY [facility] Last Admin: 01/04/18 09:01 Dose: 30 meq Pravastatin Sodium (Pravachol) 40 mg PO HS [facility] Last Admin: 01/03/18 22:27 Dose: 40 mg Prednisone (Deltasone) 30 mg PO DAILY [facility] Last Admin: 01/04/18 09:02 Dose: 30 mg Senna/Docusate Sodium (Jesusita-Colace) 1 tab PO BID [facility] Last Admin: 01/04/18 09:03 Dose: 1 tab Sodium Biphosphate/Sodium Phosphate (Fleets Enema (Adult)) 118 ml RECTAL UNSCH PRN PRN Reason: severe constipation Sodium Chloride (Ns Flush) 2 ml IV.FLUSH UNSCH PRN PRN Reason: FLUSH AFTER USING IV ACCESS Last Admin: 11/25/17 22:12 Dose: 2 ml Sodium Chloride (Ns Flush) 2 ml IV.FLUSH BID [facility] Last Admin: 01/04/18 09:03 Dose: 2 ml Trimethoprim/Sulfamethoxazole (Bactrim) 1 tab PO MoWeFr@0900 [facility] Last Admin: 01/03/18 10:08 Dose: 1 tab Vitamin D (Vitamin D3) 1,000 unit PO DAILY [facility] Last Admin: 01/04/18 09:01 Dose: 1,000 unit Allergies/Adverse Reactions: Allergies Allergy/AdvReac Type Severity Reaction Status Date / Time No Known Allergies Allergy Verified 11/20/17 10:18 Review of Systems All other systems reviewed negative except as stated in HPI Physical Exam Vital signs: Vital Signs 01/03/18 20:00 01/04/18 00:00 01/04/18 04:00 Temperature 98.3 F 98.0 F 98.6 F Pulse Rate 85 95 H 103 H Respiratory Rate 18 18 18 Blood Pressure 152/87 H 115/76 115/65 Pulse Oximetry 100 99 98 01/04/18 08:00 01/04/18 12:00 Temperature 98.5 F 98.5 F Pulse Rate 73 81 Respiratory Rate 18 18 Blood Pressure 125/68 112/67 Pulse Oximetry 100 100 Intake & Output 01/03/18 01/04/18 01/04/18 18:59 06:59 18:59 Intake Total 480 / 480 Output Total 502 / 502 2600 / 2600 Balance -22 / -22 -2600 / -2600 Weight 106.5 kg Intake: Oral 480 / 480 Output: Urine 500 / 500 2600 / 2600 Stool 2 / 2 Other: Date of Last Bowel Movement 01/03/18 01/03/18 Narrative: GENERAL: Awake and alert. Sitting up in bed. SKIN: Warm and dry. No generalized rash. HEAD: Atraumatic. Normocephalic. EYES: Pupils equal and round. No scleral icterus. No injection or drainage. ENT: No nasal bleeding or discharge. Mucous membranes pink and moist. NECK: Trachea midline. No JVD. CARDIOVASCULAR: Regular rate and rhythm. RESPIRATORY: No accessory muscle use. Clear to auscultation anteriorly. Breath sounds equal bilaterally. GASTROINTESTINAL: Abdomen soft, non-tender, nondistended. +BS. : suprapubic catheter in place MUSCULOSKELETAL: Extremities without clubbing, cyanosis, or edema. No obvious deformities. NEUROLOGICAL: Awake and alert. No aphasia mild spastic paraplegia, reduced fine finger movements in the upper extremities but able to raise both upper extremity to gravity, spinal sensory level, PSYCHIATRIC: Appropriate mood and affect; insight and judgment normal. 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 It has been 6 months since her last treatment. She likely should get a 4 week cycle but will further defer to Dr. Estrella and hematology following. Dr. Estrella to follow Daily Summary: MD note agree w/above pt to continue cellcept and prednisone will obtain mri c and t spine w/wo cmp h/o eval for apheresis and consider rituxin if pt has progressed. can always go up on cellcept.
[2018-01-04] MEDS: Nortriptyline 10 MG Capsule PO SCH (20:58)
--- NOTE | 2018-01-05 08:13 | P.PN ---
Subjective Interval history: Follow-up: Neuromyelitis optica, transverse myelitis, paraplegia. Patient seen and examined. Patient denies any new medical complaints. Discussed with Sondra QUINONEZ, plan to transfer to Hem/Onc for IV Rituxan infusion. Discussed with nursing staff, no acute issues noted. Physical Exam Vital signs: Vital Signs 01/04/18 12:00 01/04/18 16:00 01/04/18 20:00 Temperature 98.5 F 98.9 F 98 F Pulse Rate 81 86 82 Respiratory Rate 18 18 18 Blood Pressure 112/67 126/63 119/77 Pulse Oximetry 100 100 100 01/05/18 04:00 Temperature 98.2 F Pulse Rate 85 Respiratory Rate 18 Blood Pressure 140/95 H Pulse Oximetry 96 Intake & Output 01/04/18 01/05/18 01/05/18 18:59 06:59 18:59 Intake Total 600 / 600 Output Total 750 / 750 1900 / 1900 Balance -150 / -150 -1900 / -1900 Weight 106.6 kg Intake: Oral 600 / 600 Output: Urine 750 / 750 1900 / 1900 Narrative: GENERAL: WDWN female, INAD. Awake and alert. Sitting up in bed. Appears comfortable. SKIN: Warm and dry. No generalized rash. HEAD: Atraumatic. Normocephalic. EYES: Pupils equal and round. No scleral icterus. No injection or drainage. ENT: No nasal bleeding or discharge. Mucous membranes pink and moist. NECK: Trachea midline. No JVD. CARDIOVASCULAR: Regular rate and rhythm. RESPIRATORY: No accessory muscle use. Clear to auscultation anteriorly. Breath sounds equal bilaterally. GASTROINTESTINAL: Abdomen soft, non-tender, nondistended. +BS. : suprapubic catheter in place MUSCULOSKELETAL: Extremities without clubbing, cyanosis, or edema. No obvious deformities. NEUROLOGICAL: Awake and alert. No obvious cranial nerve deficits. Decreased motor function bilateral UEs. BLE paresis. Normal speech. PSYCHIATRIC: Appropriate mood and affect; insight and judgment normal. - Urinary Catheter Management Suprapubic Cath placed during this visit: yes Reason for continuing: Chronic Urinary Retention Insertion date: 12/15/17 Results - Labs CBC & Chem 7: 01/03/18 12:15 01/03/18 12:15 Laboratory Results - last 24 hr 0801/04/18 01/04/18 12:43 17:30 20:06 POC Glucose 185 H 246 H 231 H 01/05/18 01/05/18 05:30 07:37 POC Glucose 190 H 170 H - Imaging ITS Impressions Chest X-Ray 11/29/17 00:00 CONCLUSION: Negative for an acute process Cervical Spine MRI 12/15/17 00:00 CONCLUSION: Thoracic Spine MRI 12/15/17 00:00 CONCLUSION: Tube Change 12/15/17 00:00 CONCLUSION: 1. Uncomplicated suprapubic catheter exchange. 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 Neuromyelitis optica, transverse myelitis, paraplegia New complaints unable to feel with her hands- UE sensation and strength much improved - Returned from [facility] following a one-month stay there. - Continue prednisone 30mg daily, CellCept for 6 months. Obtain CellCept level. - Bactrim Wednesday/Wednesday/Wednesday prophylactically. - Continue physical therapy, Occupational Therapy.- patient know and vigilant with exercises appreciate Neurology seeing patient- MRI spines ordered- unremarkable 12/17- case d/w with Dr. Estrella and Rosemarie- will not do plasmapheresis,. Rituxin due this month. 01/05 patient evaluated by hematology, appreciate assistance. Plan to transfer to oncology for IV Rituxan infusion. Diabetes mellitus, insulin-dependent HgA1C 7.9 (10/05/17) Blood glucose overall good- difficult with steroids on board - continue on Levemir 30u daily and 25 units at night. Continue on prandial NovoLog 15 units 3 times daily. - Resume patient's home medication glyburide but at lower dose - continue accucheks and ISS Hypertension, chronic essential - Continue metoprolol Anemia of chronic disease - H&H are stable and no further hematuria - Continue to monitor CBC as indicated Pulmonary embolus - restarted Eliquis-12/16 no plans for permacath anymore Neurogenic bladder Urinary retention - Suprapubic catheter in place. Appreciate urology recommendations. - Suprapubic catheter exchange and upsizing 11/14 - SC changed 12/15 - routine care - and change q 4 weeks Constipation - Bowel regimen. Continue Senokot daily. Tried lactulose, milk milk of magnesia however without bowel movement. Had magnesium citrate. Dulcolax sup prn. monitor BMs DVT prophylaxis Eliquis Discussed Condition With: Patient, nursing staff, Dr. Torres, CM, CRISTIANO Randle Discharge Planning: Difficult placement. CM assists with ongoing discharge planning.
[2018-01-05] MEDS: Calcium Acetate 667 MG Capsule PO SCH ×3 (08:38→18:32)
[2018-01-05] MEDS: Gabapentin 300 MG Capsule PO SCH ×3 (08:38→18:32)
[2018-01-05] MEDS: Senna/Docusate Sodium 8.6/50 MG Tablet PO SCH ×2 (08:38→22:45)
[2018-01-05] MEDS: Calcium/Vitamin D 250/125 MG Tablet PO SCH (08:39)
[2018-01-05] MEDS: Ascorbic Acid 500 MG Tablet PO SCH (08:39)
[2018-01-05] MEDS: Baclofen 10 MG Tablet PO SCH ×4 (08:39→22:45)
[2018-01-05] MEDS: predniSONE 10 MG Tablet PO SCH (08:39)
[2018-01-05] MEDS: Sulfamethoxazole/Trimethoprim 400/80 MG Tablet PO SCH (08:40)
[2018-01-05] MEDS: Insulin Detemir Inj 1,000 UNIT/10 ML Vial SQ SCH ×2 (08:40→23:01)
[2018-01-05] MEDS: Insulin NovoLOG Aspart Correctional Sugar Inj SQ SCH ×4 (08:40→23:01)
--- NOTE | 2018-01-05 10:29 | P.PNONC ---
Subjective Interval history: Afebrile Patient resting in bed eating breakfast in no obvious distress Reports the sensations in her leg are unchanged Hoping to get Rituxan sooner than later as she reports she is due Objective Vital Signs/Intake & Output: Vital Signs 01/04/18 12:00 01/04/18 16:00 01/04/18 20:00 Temperature 98.5 F 98.9 F 98 F Pulse Rate 81 86 82 Respiratory Rate 18 18 18 Blood Pressure 112/67 126/63 119/77 Pulse Oximetry 100 100 100 01/05/18 04:00 01/05/18 08:00 Temperature 98.2 F 97.9 F Pulse Rate 85 72 Respiratory Rate 18 16 Blood Pressure 140/95 H 136/79 Pulse Oximetry 96 97 Intake & Output 01/04/18 01/05/18 01/05/18 18:59 06:59 18:59 Intake Total 600 / 600 Output Total 750 / 750 1900 / 1900 Balance -150 / -150 -1900 / -1900 Weight 235 lb 0.204 oz Intake: Oral 600 / 600 Output: Urine 750 / 750 1900 / 1900 Result Diagrams: 01/03/18 12:15 01/03/18 12:15 Laboratory Results: Laboratory Results - last 24 hr 01/04/18 01/04/18 01/04/18 12:43 17:30 20:06 POC Glucose 185 H 246 H 231 H 01/05/18 01/05/18 05:30 07:37 POC Glucose 190 H 170 H Medications: Active Medications Generic Name Dose Route Start Last Admin Trade Name Freq PRN Reason Stop Dose Admin Al Hydroxide/Mg Hydroxide 30 ml 11/28/17 09:59 12/20/17 05:12 Milk Of Magnesia Liq PO 30 ml Q12H PRN Administration Mild Constipation Apixaban 5 mg 12/27/17 21:00 01/05/18 08:40 Eliquis PO 5 mg BID STAR Administration Artificial Tears 2 drop 11/21/17 00:01 12/05/17 15:31 Tears Naturale Opth Drops EACH EYE 2 drop Q4H PRN Administration DRY EYES Ascorbic Acid 250 mg 11/21/17 09:00 01/05/18 08:39 Vitamin C PO 250 mg DAILY STAR Administration Baclofen 30 mg 11/21/17 09:00 01/05/18 08:39 Lioresal PO 30 mg QID STAR Administration Bisacodyl 10 mg 11/28/17 09:59 12/25/17 13:24 Dulcolax Supp RECTAL 10 mg DAILY PRN Administration SEVERE CONSITIPATION Calcium Acetate 667 mg 11/21/17 08:00 01/05/18 08:38 Phoslo PO 667 mg TIDAC STAR Administration Calcium/Vitamin D 2 tab 11/21/17 09:00 01/05/18 08:39 Oscal With D 250/125 Mg PO 2 tab DAILY STAR Administration Diazepam 5 mg 11/21/17 00:01 01/04/18 13:05 Valium PO 5 mg Q8H PRN Administration MUSCLE SPASM Docusate Sodium 100 mg 11/21/17 00:01 11/28/17 14:17 Colace PO 100 mg DAILY PRN Administration CONSTIPATION Gabapentin 300 mg 12/17/17 13:00 01/05/18 08:38 Neurontin PO 300 mg TID STAR Administration Insulin Aspart 15 units 01/04/18 12:15 01/05/18 08:40 Novolog Inj SQ 15 units TIDAC STAR Administration Insulin Aspart 0 unit 12/11/17 21:30 01/05/18 08:40 Novolog Insulin Correctional Sugar Inj SQ 2 unit ACHS STAR Administration Protocol Insulin Detemir 30 unit 12/19/17 08:01 01/05/18 08:40 Levemir Inj SQ 30 unit AC BREAKFAST STAR Administration Insulin Detemir 25 unit 01/01/18 21:00 01/04/18 20:59 Levemir Inj SQ 25 unit HS SATR Administration Lactulose 30 ml 11/28/17 09:59 12/23/17 08:10 Lactulose Liq PO 30 ml DAILY PRN Administration SEVERE CONSITIPATION Metoprolol Succinate 25 mg 11/21/17 09:00 01/05/18 08:38 Toprol Xl PO 25 mg DAILY STAR Administration Mycophenolate Mofetil 500 mg 11/21/17 06:00 01/05/18 05:22 Cellcept PO 500 mg BID@0600,1800 STAR Administration Nortriptyline HCl 10 mg 11/21/17 21:00 01/04/18 20:58 Pamelor PO 10 mg HS STAR Administration Oxycodone HCl 5 mg 11/21/17 00:01 01/05/18 08:52 Roxicodone PO 5 mg Q4H PRN Administration PAIN 6-10 Pantoprazole Sodium 40 mg 11/21/17 09:00 01/05/18 08:38 Protonix PO 40 mg DAILY STAR Administration Potassium Chloride 30 meq 11/21/17 09:00 01/05/18 08:38 Klor-Con 10 PO 30 meq DAILY STAR Administration Pravastatin Sodium 40 mg 11/21/17 21:00 01/04/18 20:58 Pravachol PO 40 mg HS STAR Administration Prednisone 30 mg 11/21/17 09:00 01/05/18 08:39 Deltasone PO 30 mg DAILY STAR Administration Senna/Docusate Sodium 1 tab 11/28/17 11:00 01/05/18 08:38 Jesusita-Colace PO 1 tab BID STAR Administration Sodium Chloride 2 ml 11/21/17 00:01 11/25/17 22:12 Ns Flush IV.FLUSH 2 ml UNSCH PRN Administration FLUSH AFTER USING IV ACCESS Sodium Chloride 2 ml 11/21/17 09:00 01/05/18 08:41 Ns Flush IV.FLUSH 2 ml BID STAR Administration Trimethoprim/Sulfamethoxazole 1 tab 11/22/17 09:00 01/05/18 08:40 Bactrim PO 1 tab MoWeFr@0900 STAR Administration Vitamin D 1,000 unit 11/21/17 09:00 01/05/18 08:40 Vitamin D3 PO 1,000 unit DAILY STAR Administration Objective Remarks: GENERAL: Obese middle-aged female resting in bed in no obvious distress SKIN: Warm and dry. HEAD: Normocephalic. EYES: No injection or drainage. NECK: Supple, trachea midline. CARDIOVASCULAR: Regular rate and rhythm without murmurs. RESPIRATORY: Clear anteriorly. Breathing unlabored at rest. GASTROINTESTINAL: Abdomen soft, non-tender, nondistended. Ileal conduit in place draining light yellow urine to bedside bag. EXTREMITIES: No cyanosis. Bilateral lower extremities/feet in braces. MUSCULOSKELETAL: Diminished muscle tone to bilateral lower extremities. NEUROLOGICAL: Patient unable to move bilateral lower extremities. She does have equal but decreased sensation to touch. Normal speech. Moving upper extremities independently. Assessment/Plan - Plan Ms. Friedman is a 47-year-old female with a diagnosis of neuromyelitis optica , transverse myelitis and resultant paraplegia. She has been on treatment with immunosuppression therapy with CellCept and rituximab and for flareups she receives plasma exchange treatments. The hematology service has been asked to see her to facilitate Rituxan infusion as this is due The patient tells me she feels stable and does not feel as if her disease is flaring up at this time. 1. The hematology service has been asked to come back and see the patient as she is reportedly due for Rituxan. She reports she last received this at [facility]. She gets her treatments every 6 months. She reports she is doing well. She does not feel like she is having an exacerbation of symptoms. She continues on CellCept and 30 mg prednisone daily for her neuromyelitis optica. 2. I have placed a call to Dr. Estrella to inquire what dosing she would like the patient on. For now I will transfer the patient to the oncology floor as this is the only location where she will be able to get this infusion. Addendum: I have spoken with Dr Estrella who recommends Rituxan 1000 mg on days 1 and 14. She will not need any further Rituxan for 6 months. If she develops a flare we can discuss plasma exchange at that time.
--- NOTE | 2018-01-05 15:23 | P.PN ---
Subjective Interval history: no new neuro issues Rituxan in am day 1 & 14 then q 6mos Physical Exam Vital signs: Vital Signs 01/04/18 16:00 01/04/18 20:00 01/05/18 04:00 Temperature 98.9 F 98 F 98.2 F Pulse Rate 86 82 85 Respiratory Rate 18 18 18 Blood Pressure 126/63 119/77 140/95 H Pulse Oximetry 100 100 96 01/05/18 08:00 Temperature 97.9 F Pulse Rate 72 Respiratory Rate 16 Blood Pressure 136/79 Pulse Oximetry 97 Intake & Output 01/04/18 01/05/18 01/05/18 18:59 06:59 18:59 Intake Total 600 / 600 Output Total 750 / 750 1900 / 1900 Balance -150 / -150 -1900 / -1900 Weight 106.6 kg Intake: Oral 600 / 600 Output: Urine 750 / 750 1900 / 1900 Narrative: awake and alert nad oob in chair fluent UE antigravity decreased 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 LE unable to move can feel lt t and vibration not position sense dtrs 1+ue unable to elicit in legs gait can not walk. - Urinary Catheter Management Suprapubic Cath placed during this visit: yes Reason for continuing: Chronic Urinary Retention Insertion date: 12/15/17 Results - Labs CBC & Chem 7: 01/03/18 12:15 01/03/18 12:15 Laboratory Results - last 24 hr 01/04/18 01/04/18 01/05/18 17:30 20:06 05:30 POC Glucose 246 H 231 H 190 H 01/05/18 01/05/18 07:37 11:38 POC Glucose 170 H 210 H - Procedures none Assessment and Plan - Assessment (1) Neuromyelitis optica Code(s): G36.0 - Neuromyelitis optica [Devic] Status: Acute (2) Pulmonary embolism Code(s): I26.99 - Other pulmonary embolism without acute cor pulmonale Status : Acute (3) DM type 2 (diabetes mellitus, type 2) Code(s): E11.9 - Type 2 diabetes mellitus without complications Status: Acute (4) Bladder dysfunction Code(s): N31.9 - Neuromuscular dysfunction of bladder, unspecified Status: Acute - Plan Rituxan tomorrow as per plan cont cellcept and prednisone pt-ot pending d/c when available to [facility].
[2018-01-05 19:55] LABS: Mycophenolic Acid 0.9 mcg/mL (1.0 - 3.5)
[2018-01-05] MEDS: Nortriptyline 10 MG Capsule PO SCH (22:46)
[2018-01-06] MEDS: Calcium/Vitamin D 250/125 MG Tablet PO SCH (09:04)
[2018-01-06] MEDS: Ascorbic Acid 500 MG Tablet PO SCH (09:05)
[2018-01-06] MEDS: Baclofen 10 MG Tablet PO SCH ×4 (09:06→22:50)
[2018-01-06] MEDS: predniSONE 10 MG Tablet PO SCH (09:07)
[2018-01-06] MEDS: Insulin Detemir Inj 1,000 UNIT/10 ML Vial SQ SCH ×2 (09:09→22:52)
[2018-01-06] MEDS: Gabapentin 300 MG Capsule PO SCH ×3 (09:09→18:02)
[2018-01-06] MEDS: Senna/Docusate Sodium 8.6/50 MG Tablet PO SCH ×2 (09:09→22:51)
[2018-01-06] MEDS: Insulin NovoLOG Aspart Correctional Sugar Inj SQ SCH ×4 (09:10→22:51)
[2018-01-06] MEDS: Calcium Acetate 667 MG Capsule PO SCH ×3 (09:11→18:03)
[2018-01-06] MEDS: glyBURIDE 2.5 MG Tablet PO SCH ×2 (09:19→18:02)
--- NOTE | 2018-01-06 11:24 | P.PNIM ---
Subjective Interval history: Patient says she is feeling all right. Denies any chest pain shortness of breath. Denies nausea or vomiting. No bowel movement in 3 days. She denies any abdominal pain but says she is feeling a little distended. Physical Exam Vital signs: Vital Signs 01/05/18 20:00 01/06/18 04:00 Temperature 98.1 F 98.3 F Pulse Rate 74 78 Respiratory Rate 18 18 Blood Pressure 141/73 H 115/79 Pulse Oximetry 100 98 Intake & Output 01/05/18 01/06/18 01/06/18 18:59 06:59 18:59 Intake Total 720 / 720 Output Total 2024 2800 / 2800 Balance -2024 / -2024 -2079 / -2079 Weight 106.3 kg Intake: Oral 720 / 720 Output: Urine 1350 / 1350 Urine Amount (Catheter) 2024 1450 / 1450 Suprapubic 2024 1450 / 1450 Other: Date of Last Bowel Movement 01/03/18 01/03/18 Narrative: GENERAL: WDWN female, INAD. Awake and alert. Sitting up in bed. Appears comfortable. SKIN: Warm and dry. No generalized rash. HEAD: Atraumatic. Normocephalic. EYES: Pupils equal and round. No scleral icterus. No injection or drainage. ENT: No nasal bleeding or discharge. Mucous membranes pink and moist. NECK: Trachea midline. No JVD. CARDIOVASCULAR: Regular rate and rhythm. RESPIRATORY: No accessory muscle use. Clear to auscultation anteriorly. Breath sounds equal bilaterally. GASTROINTESTINAL: Abdomen soft, non-tender, nondistended. +BS. No rebound or guarding. : suprapubic catheter in place MUSCULOSKELETAL: Extremities without clubbing, cyanosis, or edema. No obvious deformities. NEUROLOGICAL: Awake and alert. No obvious cranial nerve deficits. Decreased motor function bilateral UEs. BLE paresis. Normal speech. PSYCHIATRIC: Appropriate mood and affect; insight and judgment normal. - Urinary Catheter Management Suprapubic Cath placed during this visit: yes Reason for continuing: Chronic Urinary Retention Insertion date: 01/06/18 Results - Labs CBC & Chem 7: 01/03/18 12:15 01/03/18 12:15 Laboratory Results - last 24 hr 01/04/18 01/05/18 01/05/18 13:30 11:38 17:31 POC Glucose 210 H 272 H Mycophenolic Acid 0.9 L MPA Glucuronide 23 L 01/05/18 01/06/18 22:48 06:56 POC Glucose 213 H 157 H Mycophenolic Acid MPA Glucuronide - Procedures none Assessment and Plan - Assessment (1) Neuromyelitis optica Code(s): G36.0 - Neuromyelitis optica [Devic] Status: Acute (2) Pulmonary embolism Code(s): I26.99 - Other pulmonary embolism without acute cor pulmonale Status : Acute (3) DM type 2 (diabetes mellitus, type 2) Code(s): E11.9 - Type 2 diabetes mellitus without complications Status: Acute - Plan 7-year-old female with a history of diabetes, neuromyelitis optica with transverse myelitis that resulted in sensorimotor paraplegia diagnosed in May 2017, arthritis, hypertension, iron deficiency anemia was a transfer back from [facility]. //Neuromyelitis optica, transverse myelitis, paraplegia New complaints unable to feel with her hands- UE sensation and strength much improved - Returned from [facility] following a one-month stay there. - Continue prednisone 30mg daily, CellCept for 6 months. Obtain CellCept level. - Bactrim Wednesday/Wednesday/Wednesday prophylactically. - Continue physical therapy, Occupational Therapy.- patient know and vigilant with exercises appreciate Neurology seeing patient- MRI spines ordered- unremarkable 12/17- case d/w with Dr. Estrella and Rosemarie- will not do plasmapheresis,. Rituxin due this month. 01/05 patient evaluated by hematology, appreciate assistance. Plan to transfer to oncology for IV Rituxan infusion. = 01/06 IV Rituxan as per oncology. Appreciate hematology/oncology assistance. //Diabetes mellitus, insulin-dependent HgA1C 7.9 (10/05/17) Blood glucose overall good- difficult with steroids on board - continue on Levemir 30u daily and 25 units at night. Continue on prandial NovoLog 15 units 3 times daily. - Resume patient's home medication glyburide but at lower dose - continue accucheks and ISS //Hypertension, chronic essential - Continue metoprolol //Anemia of chronic disease - H&H are stable and no further hematuria - Continue to monitor CBC as indicated //Pulmonary embolus - restarted Eliquis-12/16 no plans for permacath anymore //Neurogenic bladder //Urinary retention - Suprapubic catheter in place. Appreciate urology recommendations. - Suprapubic catheter exchange and upsizing 11/14 - SC changed 12/15 - routine care - and change q 4 weeks //Constipation - Bowel regimen. Continue Senokot daily. Tried lactulose, milk milk of magnesia however without bowel movement. Had magnesium citrate. Dulcolax sup prn. monitor BMs = Will add MiraLAX daily. Suzette monitor. DVT prophylaxis Eliquis Discharge Planning: Difficult placement. CM assists with ongoing discharge planning.
[2018-01-06] MEDS ORDERED: Acetaminophen 325 MG Tablet PO ONE (11:30)
[2018-01-06] MEDS: Sod Chloride 0.9% Inj 1,000 ML IV.SIG SCH ×2 (13:12→23:38)
[2018-01-06] MEDS: Polyethylene Glycol 3350 17 GM Packet PO SCH (13:17)
[2018-01-06] MEDS: RITUXIMAB IV.SIG SCH (13:36)
[2018-01-06] MEDS: SODIUM CHLOR 0.9% IV.SIG SCH (13:36)
--- NOTE | 2018-01-06 15:16 | P.PNONC ---
Subjective Interval history: Patient awake and alert on approach. She is lying in bed, in no acute distress. She is awaiting Rituxan infusion today. Complains of constipation, reports attending has addressed this a.m. Objective Vital Signs/Intake & Output: Vital Signs 01/05/18 20:00 01/06/18 04:00 Temperature 98.1 F 98.3 F Pulse Rate 74 78 Respiratory Rate 18 18 Blood Pressure 141/73 H 115/79 Pulse Oximetry 100 98 Intake & Output 01/05/18 01/06/18 01/06/18 18:59 06:59 18:59 Intake Total 720 / 720 Output Total 2024 2800 / 2800 Balance -2024 / -2024 -2079 / -2079 Weight 106.3 kg Intake: Oral 720 / 720 Output: Urine 1350 / 1350 Urine Amount (Catheter) 2024 1450 / 1450 Suprapubic 2024 1450 / 1450 Other: Date of Last Bowel Movement 01/03/18 01/03/18 Result Diagrams: 01/03/18 12:15 01/03/18 12:15 Laboratory Results: Laboratory Results - last 24 hr 01/04/18 01/05/18 01/05/18 13:30 17:31 22:48 POC Glucose 272 H 213 H Mycophenolic Acid 0.9 L MPA Glucuronide 23 L 01/06/18 01/06/18 06:56 11:36 POC Glucose 157 H 126 H Mycophenolic Acid MPA Glucuronide Medications: Active Medications Generic Name Dose Route Start Last Admin Trade Name Freq PRN Reason Stop Dose Admin Al Hydroxide/Mg Hydroxide 30 ml 11/28/17 09:59 12/20/17 05:12 Milk Of Magnesia Liq PO 30 ml Q12H PRN Administration Mild Constipation Apixaban 5 mg 12/27/17 21:00 01/06/18 09:08 Eliquis PO 5 mg BID STAR Administration Artificial Tears 2 drop 11/21/17 00:01 12/05/17 15:31 Tears Naturale Opth Drops EACH EYE 2 drop Q4H PRN Administration DRY EYES Ascorbic Acid 250 mg 11/21/17 09:00 01/06/18 09:05 Vitamin C PO 250 mg DAILY STAR Administration Baclofen 30 mg 11/21/17 09:00 01/06/18 13:16 Lioresal PO 30 mg QID STAR Administration Bisacodyl 10 mg 11/28/17 09:59 12/25/17 13:24 Dulcolax Supp RECTAL 10 mg DAILY PRN Administration SEVERE CONSITIPATION Calcium Acetate 667 mg 11/21/17 08:00 01/06/18 13:17 Phoslo PO 667 mg TIDAC STAR Administration Calcium/Vitamin D 2 tab 11/21/17 09:00 01/06/18 09:04 Oscal With D 250/125 Mg PO 2 tab DAILY STAR Administration Diazepam 5 mg 11/21/17 00:01 01/04/18 13:05 Valium PO 5 mg Q8H PRN Administration MUSCLE SPASM Docusate Sodium 100 mg 11/21/17 00:01 11/28/17 14:17 Colace PO 100 mg DAILY PRN Administration CONSTIPATION Gabapentin 300 mg 12/17/17 13:00 01/06/18 13:12 Neurontin PO 300 mg TID STAR Administration Glyburide 2.5 mg 01/06/18 08:00 01/06/18 09:19 Diabeta PO Not Given BID@0800,1700 STAR Rituximab 1,000 mg/ Sodium 600 mls @ 0 mls/hr 01/06/18 12:00 01/06/18 13:36 Chloride IV.SIG 01/20/18 12:01 50 mls/hr Q14D STAR Administration As Directed Sodium Chloride 1,000 mls @ 100 mls/hr 01/06/18 11:30 01/06/18 13:12 Ns Inj IV.SIG 100 mls/hr .Q10H STAR Administration Insulin Aspart 15 units 01/04/18 12:15 01/06/18 13:36 Novolog Inj SQ 15 units TIDAC STAR Administration Insulin Aspart 0 unit 12/11/17 21:30 01/06/18 13:29 Novolog Insulin Correctional Sugar Inj SQ Not Given ACHS [facility] Protocol Insulin Detemir 30 unit 12/19/17 08:01 01/06/18 09:09 Levemir Inj SQ 30 unit AC BREAKFAST STAR Administration Insulin Detemir 25 unit 01/01/18 21:00 01/05/18 23:01 Levemir Inj SQ 25 unit HS STAR Administration Lactulose 30 ml 11/28/17 09:59 12/23/17 08:10 Lactulose Liq PO 30 ml DAILY PRN Administration SEVERE CONSITIPATION Metoprolol Succinate 25 mg 11/21/17 09:00 01/06/18 09:08 Toprol Xl PO 25 mg DAILY STAR Administration Mycophenolate Mofetil 500 mg 11/21/17 06:00 01/06/18 06:45 Cellcept PO 500 mg BID@0600,1800 STAR Administration Nortriptyline HCl 10 mg 11/21/17 21:00 01/05/18 22:46 Pamelor PO 10 mg HS STAR Administration Oxycodone HCl 5 mg 11/21/17 00:01 01/05/18 18:35 Roxicodone PO 5 mg Q4H PRN Administration PAIN 6-10 Pantoprazole Sodium 40 mg 11/21/17 09:00 01/06/18 09:08 Protonix PO 40 mg DAILY STAR Administration Polyethylene Glycol 17 gm 01/06/18 11:30 01/06/18 13:17 Miralax PO 17 gm DAILY STAR Administration Potassium Chloride 30 meq 11/21/17 09:00 01/06/18 09:05 Klor-Con 10 PO 30 meq DAILY STAR Administration Pravastatin Sodium 40 mg 11/21/17 21:00 01/05/18 22:46 Pravachol PO 40 mg HS STAR Administration Prednisone 30 mg 11/21/17 09:00 01/06/18 09:07 Deltasone PO 30 mg DAILY STAR Administration Senna/Docusate Sodium 1 tab 11/28/17 11:00 01/06/18 09:09 Jesusita-Colace PO 1 tab BID STAR Administration Sodium Chloride 2 ml 11/21/17 00:01 11/25/17 22:12 Ns Flush IV.FLUSH 2 ml UNSCH PRN Administration FLUSH AFTER USING IV ACCESS Sodium Chloride 2 ml 11/21/17 09:00 01/06/18 10:45 Ns Flush IV.FLUSH 2 ml BID STAR Administration Trimethoprim/Sulfamethoxazole 1 tab 11/22/17 09:00 01/05/18 08:40 Bactrim PO 1 tab MoWeFr@0900 STAR Administration Vitamin D 1,000 unit 11/21/17 09:00 01/06/18 09:04 Vitamin D3 PO 1,000 unit DAILY STAR Administration Objective Remarks: GENERAL: Obese middle-aged female, lying in bed, in no acute distress. SKIN: Warm and dry. HEAD: Normocephalic. EYES: No injection or drainage. NECK: Supple, trachea midline. CARDIOVASCULAR: Regular rate and rhythm without murmurs. RESPIRATORY: Breath sounds clear anteriorly. No accessory muscle use. GASTROINTESTINAL: Abdomen soft, non-tender, nondistended. Ileal conduit in place draining light yellow urine to bedside bag. EXTREMITIES: No cyanosis. Braces to bilateral lower extremities. MUSCULOSKELETAL: Diminished muscle tone. NEUROLOGICAL: Normal speech, moving upper extremities. A&O 3. Patient unable to move bilateral lower extremities. Assessment/Plan - Plan Ms. Friedman is a 47-year-old female with a diagnosis of neuromyelitis optica , transverse myelitis and resultant paraplegia. She has been on treatment with immunosuppression therapy with CellCept and rituximab and for flare-ups she receives plasma exchange treatments. The hematology service has been asked to see her to facilitate Rituxan infusion as this is due. 1. Rituxan 1000mg day 1 infusion today. Patient will need additional infusion on day 14. 2. Neuromyelitis optica, management per Dr. More. 3. Continue supportive care.
[2018-01-06] MEDS: Nortriptyline 10 MG Capsule PO SCH (22:50)
[2018-01-07] MEDS: Calcium Acetate 667 MG Capsule PO SCH ×3 (09:02→18:09)
[2018-01-07] MEDS: predniSONE 10 MG Tablet PO SCH (09:02)
[2018-01-07] MEDS: Calcium/Vitamin D 250/125 MG Tablet PO SCH (09:02)
[2018-01-07] MEDS: Polyethylene Glycol 3350 17 GM Packet PO SCH (09:03)
[2018-01-07] MEDS: Sulfamethoxazole/Trimethoprim 400/80 MG Tablet PO SCH (09:03)
[2018-01-07] MEDS: Senna/Docusate Sodium 8.6/50 MG Tablet PO SCH ×2 (09:03→23:43)
[2018-01-07] MEDS: Gabapentin 300 MG Capsule PO SCH ×3 (09:03→18:04)
[2018-01-07] MEDS: Ascorbic Acid 500 MG Tablet PO SCH (09:03)
[2018-01-07] MEDS: Baclofen 10 MG Tablet PO SCH ×4 (09:15→23:58)
[2018-01-07] MEDS: Insulin Detemir Inj 1,000 UNIT/10 ML Vial SQ SCH ×2 (09:17→23:43)
[2018-01-07] MEDS: Insulin NovoLOG Aspart Correctional Sugar Inj SQ SCH ×4 (09:18→23:16)
--- NOTE | 2018-01-07 10:01 | P.PNIM ---
Subjective Interval history: Patient says she is feeling all right. Denies any chest pain or shortness of breath. No acute changes per nursing. Small bowel movement overnight. Physical Exam Vital signs: Vital Signs 01/06/18 12:00 01/06/18 15:34 01/06/18 15:40 Temperature 98 F Pulse Rate 75 100 H 100 H Respiratory Rate 18 Blood Pressure 125/71 Pulse Oximetry 01/06/18 16:00 01/06/18 21:55 01/06/18 22:33 Temperature 98.6 F Pulse Rate 76 75 70 Respiratory Rate 20 16 Blood Pressure 117/77 124/76 Pulse Oximetry 100 99 01/06/18 22:34 01/07/18 00:38 01/07/18 01:35 Temperature 97.9 F 96.8 F L Pulse Rate 77 72 Respiratory Rate 16 Blood Pressure 110/71 Pulse Oximetry 100 01/07/18 04:00 01/07/18 04:35 Temperature 97.7 F Pulse Rate 70 67 Respiratory Rate 17 Blood Pressure 122/76 Pulse Oximetry 100 Intake & Output 01/06/18 01/07/18 01/07/18 18:59 06:59 18:59 Intake Total 640 / 640 2440 / 2440 Output Total 1200 / 1200 2900 / 2900 Balance -560 / -560 -460 / -460 Weight 114.5 kg Intake: IV 1590 / 1590 NS Inj 1,000 ML @ 100 mls/hr IV 990 / 990 .SIG .Q10H STAR Rx#:[id number] Rituxan Inj 1,000 MG In NS Inj 600 / 600 500 ML @ As Directed IV.SIG Q14D STAR Rx#:[id number] Oral 640 / 640 850 / 850 Output: Urine 1100 / 1100 Urine Amount (Catheter) 1200 / 1200 1800 / 1800 Suprapubic 1200 / 1200 1800 / 1800 Other: Date of Last Bowel Movement 01/03/18 01/06/18 # Bowel Movements 1 Narrative: GENERAL: Patient sitting up in bed. Appears comfortable. No acute distress. SKIN: Warm and dry. HEAD: Normocephalic. EYES: No scleral icterus. No injection or drainage. NECK: Supple, trachea midline. No JVD. CARDIOVASCULAR: Regular rate and rhythm without murmurs, gallops, or rubs. RESPIRATORY: Breath sounds equal bilaterally. No accessory muscle use. GASTROINTESTINAL: Abdomen soft, non-tender, nondistended. MUSCULOSKELETAL: No cyanosis. Trace peripheral edema as before. BACK: Nontender without obvious deformity. No CVA tenderness. - Urinary Catheter Management Suprapubic Cath placed during this visit: yes Reason for continuing: Chronic Urinary Retention Insertion date: 01/06/18 Results - Labs CBC & Chem 7: 01/03/18 12:15 01/03/18 12:15 Laboratory Results - last 24 hr 01/06/18 01/06/18 01/06/18 11:36 17:56 22:37 POC Glucose 126 H 230 H 121 H 01/07/18 01/07/18 04:50 08:04 POC Glucose 141 H 169 H - Procedures none Assessment and Plan - Assessment (1) Neuromyelitis optica Code(s): G36.0 - Neuromyelitis optica [Devic] Status: Acute (2) Pulmonary embolism Code(s): I26.99 - Other pulmonary embolism without acute cor pulmonale Status : Acute (3) DM type 2 (diabetes mellitus, type 2) Code(s): E11.9 - Type 2 diabetes mellitus without complications Status: Acute - Plan 7-year-old female with a history of diabetes, neuromyelitis optica with transverse myelitis that resulted in sensorimotor paraplegia diagnosed in May 2017, arthritis, hypertension, iron deficiency anemia was a transfer back from [facility]. //Neuromyelitis optica, transverse myelitis, paraplegia New complaints unable to feel with her hands- UE sensation and strength much improved - Returned from [facility] following a one-month stay there. - Continue prednisone 30mg daily, CellCept for 6 months. Obtain CellCept level. - Bactrim Wednesday/Wednesday/Wednesday prophylactically. - Continue physical therapy, Occupational Therapy.- patient know and vigilant with exercises appreciate Neurology seeing patient- MRI spines ordered- unremarkable 12/17- case d/w with Dr. Estrella and Rosemarie- will not do plasmapheresis,. Rituxin due this month. 01/05 patient evaluated by hematology, appreciate assistance. Plan to transfer to oncology for IV Rituxan infusion. = IV Rituxan as per hematology, neurology.. Appreciate hematology/oncology assistance. //Diabetes mellitus, insulin-dependent HgA1C 7.9 (10/05/17) Blood glucose overall good- difficult with steroids on board - continue on Levemir 30u daily and 25 units at night. Continue on prandial NovoLog 15 units 3 times daily. - Resume patient's home medication glyburide but at lower dose - continue accucheks and ISS //Hypertension, chronic essential - Continue metoprolol //Anemia of chronic disease - H&H are stable and no further hematuria - Continue to monitor CBC as indicated //Pulmonary embolus - restarted Eliquis-12/16 no plans for permacath anymore //Neurogenic bladder //Urinary retention - Suprapubic catheter in place. Appreciate urology recommendations. - Suprapubic catheter exchange and upsizing 11/14 - SC changed 12/15 - routine care - and change q 4 weeks //Constipation - Bowel regimen. Continue Senokot daily. Tried lactulose, milk milk of magnesia however without bowel movement. Had magnesium citrate. Dulcolax sup prn. monitor BMs = 01/06 will add MiraLAX daily. Suzette monitor. = continue MiraLAX. DVT prophylaxis Eliquis Discharge Planning: Difficult placement. CM assists with ongoing discharge planning.
[2018-01-07] MEDS: glyBURIDE 2.5 MG Tablet PO SCH ×2 (13:56→19:54)
[2018-01-07] MEDS: Sod Chloride 0.9% Inj 1,000 ML IV.SIG SCH ×2 (14:05→19:55)
[2018-01-07] MEDS: Nortriptyline 10 MG Capsule PO SCH (23:43)
[2018-01-08] MEDS: Bisacodyl 10 MG Supp RECTAL PRN (03:01)
[2018-01-08] MEDS: Sod Chloride 0.9% Inj 1,000 ML IV.SIG SCH ×2 (05:31→17:19)
[2018-01-08] MEDS: Acetaminophen 325 MG Tablet PO PRN (05:37)
[2018-01-08 06:50] LABS: Albumin 3.4 g/dL (3.4-5.0); Anion Gap 9 meq/L (5-15); Blood Urea Nitrogen 10 mg/dL (7-18); Calcium 9.2 mg/dL (8.5-10.1); Carbon Dioxide 29.3 meq/L (21.0-32.0); Chloride 104 meq/L (98-107); Glomerular Filtration Rate Greater Than 89 mL/min (>89); Glucose,Random 155 mg/dL (74-106); Magnesium 2.4 mg/dL (1.5-2.5); Phosphorus 3.6 mg/dL (2.5-4.9); Potassium 3.8 meq/L (3.5-5.1); Sodium 142 meq/L (136-145)
[2018-01-08 07:13] LABS: Baso % (Auto) 0.2 % (0.0-2.0); Eos # (Auto) 0.1 th/mm3 (0.0-0.4); Eos % (Auto) 0.9 % (0.0-4.0); Hemoglobin 12.9 gm/dL (11.6-15.3); Lymph # (Auto) 2.5 th/mm3 (1.0-4.8); Lymph % (Auto) 37.3 % (9.0-44.0); Mean Corpuscular HGB Conc 32.3 % (32.0-36.0); Mean Corpuscular Hemoglobin 26.6 pg (27.0-34.0); Mean Corpuscular Volume 82.5 fL (80.0-100.0); Mean Platelet Volume 9.1 fL (7.0-11.0); Mono # (Auto) 0.6 th/mm3 (0.0-0.9); Mono % (Auto) 8.9 % (0.0-8.0); Neut # (Auto) 3.6 th/mm3 (1.8-7.7); Neut % (Auto) 52.7 % (16.0-70.0); Platelet Count 187 th/mm3 (150-450); Red Blood Count 4.85 mil/mm3 (4.00-5.30); Red Cell Distribution Width 16.4 % (11.6-17.2); White Blood Count 6.8 th/mm3 (4.0-11.0)
[2018-01-08] MEDS: glyBURIDE 2.5 MG Tablet PO SCH ×2 (08:00→17:33)
[2018-01-08] MEDS: Calcium Acetate 667 MG Capsule PO SCH ×3 (08:00→17:34)
[2018-01-08] MEDS: Insulin Detemir Inj 1,000 UNIT/10 ML Vial SQ SCH ×2 (09:00→22:13)
[2018-01-08] MEDS: Insulin NovoLOG Aspart Correctional Sugar Inj SQ SCH ×4 (09:39→22:13)
[2018-01-08] MEDS: predniSONE 10 MG Tablet PO SCH (09:40)
[2018-01-08] MEDS: Baclofen 10 MG Tablet PO SCH ×4 (09:41→22:12)
[2018-01-08] MEDS: Polyethylene Glycol 3350 17 GM Packet PO SCH (09:41)
[2018-01-08] MEDS: Calcium/Vitamin D 250/125 MG Tablet PO SCH (09:41)
[2018-01-08] MEDS: Gabapentin 300 MG Capsule PO SCH ×3 (09:41→17:35)
[2018-01-08] MEDS: Ascorbic Acid 500 MG Tablet PO SCH (09:42)
[2018-01-08] MEDS: Senna/Docusate Sodium 8.6/50 MG Tablet PO SCH ×2 (09:42→22:12)
--- NOTE | 2018-01-08 10:11 | P.PNONC ---
Subjective Interval history: Patient sitting in bed, eating breakfast, in no acute distress. Patient complains of being "cold to the bone", she reports this happened to her previously when she received Rituxan. Otherwise patient tolerated well. She has no other complaints at this time. Objective Vital Signs/Intake & Output: Vital Signs 01/07/18 12:00 01/07/18 16:00 01/07/18 20:00 Temperature 98.5 F 98.8 F 98.4 F Pulse Rate 89 89 82 Respiratory Rate 18 Blood Pressure 107/76 126/76 124/77 Pulse Oximetry 99 99 100 01/08/18 00:00 01/08/18 07:26 Temperature 98.5 F 98.2 F Pulse Rate 78 78 Respiratory Rate 20 16 Blood Pressure 116/81 113/76 Pulse Oximetry 98 98 Intake & Output 01/07/18 01/08/18 01/08/18 18:59 06:59 18:59 Intake Total 750 / 750 500 / 500 Output Total 2852 / 2852 2900 / 2900 Balance -2102 / -2102 -2400 / -2400 Weight 114.3 kg Intake: Oral 750 / 750 500 / 500 Oral Supplement 0 / 0 Output: Urine 2500 / 2500 Stool 2 / 2 Urine Amount (Catheter) 350 / 350 2900 / 2900 Suprapubic 350 / 350 2900 / 2900 Other: Date of Last Bowel Movement 01/06/18 01/08/18 # Bowel Movements 1 # Incontinent Bowel Movements 1 2 Result Diagrams: 01/08/18 05:29 01/08/18 05:29 Laboratory Results: Laboratory Results - last 24 hr 01/07/18 01/07/18 01/07/18 13:34 17:41 22:28 WBC RBC Hgb Hct MCV MCH MCHC RDW Plt Count MPV Neut % (Auto) Lymph % (Auto) [place] % (Auto) Eos % (Auto) Baso % (Auto) Neut # (Auto) Lymph # (Auto) [place] # (Auto) Eos # (Auto) Baso # (Auto) WBC Differential Differential Comment Sodium Potassium Chloride Carbon Dioxide Anion Gap BUN Creatinine Estimated GFR POC Glucose 196 H 267 H 131 H Random Glucose Calcium Phosphorus Magnesium Albumin 01/08/18 01/08/18 01/08/18 02:58 05:29 05:29 WBC 6.8 RBC 4.85 Hgb 12.9 Hct 40.0 MCV 82.5 MCH 26.6 L MCHC 32.3 RDW 16.4 Plt Count 187 MPV 9.1 Neut % (Auto) 52.7 Lymph % (Auto) 37.3 [place] % (Auto) 8.9 H Eos % (Auto) 0.9 Baso % (Auto) 0.2 Neut # (Auto) 3.6 Lymph # (Auto) 2.5 [place] # (Auto) 0.6 Eos # (Auto) 0.1 Baso # (Auto) 0.0 WBC Differential . Differential Comment Auto diff final Sodium 142 Potassium 3.8 Chloride 104 Carbon Dioxide 29.3 Anion Gap 9 BUN 10 Creatinine 0.57 Estimated GFR Greater than 89 POC Glucose 95 Random Glucose 155 H Calcium 9.2 Phosphorus 3.6 Magnesium 2.4 Albumin 3.4 01/08/18 08:52 WBC RBC Hgb Hct MCV MCH MCHC RDW Plt Count MPV Neut % (Auto) Lymph % (Auto) [place] % (Auto) Eos % (Auto) Baso % (Auto) Neut # (Auto) Lymph # (Auto) [place] # (Auto) Eos # (Auto) Baso # (Auto) WBC Differential Differential Comment Sodium Potassium Chloride Carbon Dioxide Anion Gap BUN Creatinine Estimated GFR POC Glucose 89 Random Glucose Calcium Phosphorus Magnesium Albumin Objective Remarks: GENERAL: Obese middle-aged female, sitting in bed, feeding self. In no acute distress. SKIN: Warm and dry. HEAD: Normocephalic. EYES: No injection or drainage. NECK: Supple, trachea midline. CARDIOVASCULAR: Regular rate and rhythm without murmurs. RESPIRATORY: Breath sounds clear anteriorly. No accessory muscle use. GASTROINTESTINAL: Abdomen soft, non-tender, nondistended. Ileal conduit in place draining light yellow urine to bedside bag. EXTREMITIES: No cyanosis. Braces to bilateral lower extremities. No edema. MUSCULOSKELETAL: Diminished muscle tone. NEUROLOGICAL: Normal speech, moving upper extremities. A&O 3. Patient unable to move bilateral lower extremities. Assessment/Plan - Plan Ms. Friedman is a 47-year-old female with a diagnosis of neuromyelitis optica , transverse myelitis and resultant paraplegia. She has been on treatment with immunosuppression therapy with CellCept and rituximab and for flare-ups she receives plasma exchange treatments. The hematology service has been asked to see her to facilitate Rituxan infusion as this is due. 1. S/P Rituxan 1000mg on 01/06/18. Patient will need additional infusion on day 14. 2. Neuromyelitis optica, management per Dr. Ruiz. 3. Continue supportive care. - Attending Statement The exam, history, and the medical decision-making described in the above note were completed with the assistance of the mid-level provider. I reviewed and agree with the findings presented. I attest that I had a [id number] encounter with the patient on the same day, and personally performed and documented my assessment and findings in the medical record. 47 yoF with neuromyelitis optica s/p rituximab. Neurology team following.
--- NOTE | 2018-01-08 16:47 | P.PNIM ---
Subjective Interval history: Patient seen earlier this morning. She reports she is feeling okay with no new complaints. Physical Exam Vital signs: Vital Signs 01/07/18 20:00 01/08/18 00:00 01/08/18 07:26 Temperature 98.4 F 98.5 F 98.2 F Pulse Rate 82 78 78 Respiratory Rate 18 20 16 Blood Pressure 124/77 116/81 113/76 Pulse Oximetry 100 98 98 01/08/18 08:00 01/08/18 12:16 01/08/18 16:00 Temperature 98.2 F 98.6 F Pulse Rate 78 90 79 Respiratory Rate 18 16 Blood Pressure 97/62 L 117/75 Pulse Oximetry 100 98 Intake & Output 01/07/18 01/08/18 01/08/18 18:59 06:59 18:59 Intake Total 750 / 750 500 / 500 Output Total 2852 / 2852 2900 / 2900 Balance -2102 / -2102 -2400 / -2400 Weight 114.3 kg Intake: Oral 750 / 750 500 / 500 Oral Supplement 0 / 0 Output: Urine 2500 / 2500 Stool 2 / 2 Urine Amount (Catheter) 350 / 350 2900 / 2900 Suprapubic 350 / 350 2900 / 2900 Other: Date of Last Bowel Movement 01/06/18 01/08/18 01/08/18 # Bowel Movements 1 # Incontinent Bowel Movements 1 2 Narrative: GENERAL: Patient sitting up in bed. No acute distress. CARDIOVASCULAR: Regular rate and rhythm without murmurs, gallops, or rubs. RESPIRATORY: Breath sounds equal bilaterally. No accessory muscle use. GASTROINTESTINAL: Abdomen soft, non-tender, nondistended. MUSCULOSKELETAL: No cyanosis. Trace peripheral edema. NEURO: Stevo LE paralysis. - Urinary Catheter Management Suprapubic Cath placed during this visit: yes Reason for continuing: Chronic Urinary Retention Insertion date: 12/15/17 Results - Labs CBC & Chem 7: 01/08/18 05:29 01/08/18 05:29 Laboratory Results - last 24 hr 01/07/18 01/07/18 01/08/18 17:41 22:28 02:58 WBC RBC Hgb Hct MCV MCH MCHC RDW Plt Count MPV Neut % (Auto) Lymph % (Auto) [place] % (Auto) Eos % (Auto) Baso % (Auto) Neut # (Auto) Lymph # (Auto) [place] # (Auto) Eos # (Auto) Baso # (Auto) WBC Differential Differential Comment Sodium Potassium Chloride Carbon Dioxide Anion Gap BUN Creatinine Estimated GFR POC Glucose 267 H 131 H 95 Random Glucose Calcium Phosphorus Magnesium Albumin 01/08/18 01/08/18 01/08/18 05:29 05:29 08:52 WBC 6.8 RBC 4.85 Hgb 12.9 Hct 40.0 MCV 82.5 MCH 26.6 L MCHC 32.3 RDW 16.4 Plt Count 187 MPV 9.1 Neut % (Auto) 52.7 Lymph % (Auto) 37.3 [place] % (Auto) 8.9 H Eos % (Auto) 0.9 Baso % (Auto) 0.2 Neut # (Auto) 3.6 Lymph # (Auto) 2.5 [place] # (Auto) 0.6 Eos # (Auto) 0.1 Baso # (Auto) 0.0 WBC Differential . Differential Comment Auto diff final Sodium 142 Potassium 3.8 Chloride 104 Carbon Dioxide 29.3 Anion Gap 9 BUN 10 Creatinine 0.57 Estimated GFR Greater than 89 POC Glucose 89 Random Glucose 155 H Calcium 9.2 Phosphorus 3.6 Magnesium 2.4 Albumin 3.4 01/08/18 11:59 WBC RBC Hgb Hct MCV MCH MCHC RDW Plt Count MPV Neut % (Auto) Lymph % (Auto) [place] % (Auto) Eos % (Auto) Baso % (Auto) Neut # (Auto) Lymph # (Auto) [place] # (Auto) Eos # (Auto) Baso # (Auto) WBC Differential Differential Comment Sodium Potassium Chloride Carbon Dioxide Anion Gap BUN Creatinine Estimated GFR POC Glucose 190 H Random Glucose Calcium Phosphorus Magnesium Albumin - Procedures none Assessment and Plan - Assessment (1) Neuromyelitis optica Code(s): G36.0 - Neuromyelitis optica [Devic] Status: Acute (2) Pulmonary embolism Code(s): I26.99 - Other pulmonary embolism without acute cor pulmonale Status : Acute (3) DM type 2 (diabetes mellitus, type 2) Code(s): E11.9 - Type 2 diabetes mellitus without complications Status: Acute - Plan 47-year-old female with a history of diabetes, neuromyelitis optica with transverse myelitis that resulted in sensorimotor paraplegia diagnosed in May 2017, arthritis, hypertension, iron deficiency anemia was a transfer back from [facility]. Neuromyelitis optica, transverse myelitis, paraplegia New complaints unable to feel with her hands- UE sensation and strength much improved - Returned from [facility] following a one-month stay there. - Continue prednisone 30mg daily, CellCept for 6 months. - Bactrim Wednesday/Wednesday/Wednesday prophylactically. - Continue physical therapy, Occupational Therapy.- patient know and vigilant with exercises appreciate Neurology following. Hematology following as well 12/17- case d/w with Dr. Estrella and Rosemarie- will not do plasmapheresis,. Rituxin due this month. IV Rituxan as per hematology, neurology. Diabetes mellitus, insulin-dependent HgA1C 7.9 (10/05/17) Blood glucose overall good- difficult with steroids on board - continue on Levemir 30u daily and 25 units at night. Continue on prandial NovoLog 15 units 3 times daily. - Resume patient's home medication glyburide but at lower dose - continue accucheks and ISS Hypertension, chronic essential - Continue metoprolol Anemia of chronic disease - H&H are stable and no further hematuria - Continue to monitor CBC as indicated Pulmonary embolus - restarted Eliquis-12/16 no plans for permacath anymore Neurogenic bladder Urinary retention - Suprapubic catheter in place. Appreciate urology recommendations. - Suprapubic catheter exchange and upsizing 11/14 - SC changed 12/15 - routine care - and change q 4 weeks Constipation - Bowel regimen. Continue Senokot daily. Tried lactulose, milk milk of magnesia however without bowel movement. Had magnesium citrate. Dulcolax sup prn. monitor BMs continue MiraLAX. DVT prophylaxis Eliquis Discharge Planning: CM assisting for discharge.
[2018-01-08] MEDS: Nortriptyline 10 MG Capsule PO SCH (22:12)
[2018-01-09] MEDS: Sod Chloride 0.9% Inj 1,000 ML IV.SIG SCH ×3 (00:02→21:40)
[2018-01-09] MEDS: Insulin Detemir Inj 1,000 UNIT/10 ML Vial SQ SCH ×3 (06:31→21:40)
[2018-01-09] MEDS: predniSONE 10 MG Tablet PO SCH (09:05)
[2018-01-09] MEDS: Baclofen 10 MG Tablet PO SCH ×4 (09:05→21:39)
[2018-01-09] MEDS: Ascorbic Acid 500 MG Tablet PO SCH (09:06)
[2018-01-09] MEDS: Calcium Acetate 667 MG Capsule PO SCH ×3 (09:07→17:49)
[2018-01-09] MEDS: Calcium/Vitamin D 250/125 MG Tablet PO SCH (09:07)
[2018-01-09] MEDS: Senna/Docusate Sodium 8.6/50 MG Tablet PO SCH ×2 (09:07→21:39)
[2018-01-09] MEDS: Polyethylene Glycol 3350 17 GM Packet PO SCH (09:08)
[2018-01-09] MEDS: Gabapentin 300 MG Capsule PO SCH ×3 (09:08→17:49)
[2018-01-09] MEDS: Insulin NovoLOG Aspart Correctional Sugar Inj SQ SCH ×4 (09:12→21:39)
[2018-01-09] MEDS: glyBURIDE 2.5 MG Tablet PO SCH ×2 (09:21→17:49)
--- NOTE | 2018-01-09 13:20 | P.PNIM ---
Subjective Interval history: Patient has no new complaints. Doing okay. Physical Exam Vital signs: Vital Signs 01/08/18 16:00 01/08/18 20:00 01/09/18 00:00 Temperature 98.6 F 98.7 F 98.9 F Pulse Rate 79 90 86 Respiratory Rate 16 16 16 Blood Pressure 117/75 126/90 115/76 Pulse Oximetry 98 99 99 01/09/18 03:55 01/09/18 04:00 01/09/18 08:00 Temperature 98.4 F 98.3 F Pulse Rate 82 85 77 Respiratory Rate 16 16 Blood Pressure 111/72 103/64 Pulse Oximetry 99 99 01/09/18 12:00 Temperature 98.5 F Pulse Rate 75 Respiratory Rate 16 Blood Pressure 116/70 Pulse Oximetry 100 Intake & Output 01/08/18 01/09/18 01/09/18 18:59 06:59 18:59 Intake Total 2320 / 2320 1000 / 1000 Output Total 3150 / 3150 2250 / 2250 Balance -830 / -830 -1250 / -1250 Weight 112 kg Intake: Oral 2320 / 2320 1000 / 1000 Output: Urine 3150 / 3150 2250 / 2250 Other: Date of Last Bowel Movement 01/08/18 01/08/18 01/07/18 Narrative: GENERAL: Patient sitting up in bed. No acute distress. CARDIOVASCULAR: Regular rate and rhythm without murmurs, gallops, or rubs. RESPIRATORY: Breath sounds equal bilaterally. No accessory muscle use. GASTROINTESTINAL: Abdomen soft, non-tender, nondistended. MUSCULOSKELETAL: No cyanosis. Trace peripheral edema. NEURO: Stevo LE paralysis. - Urinary Catheter Management Suprapubic Cath placed during this visit: yes Reason for continuing: Chronic Urinary Retention Insertion date: 12/15/17 Results - Labs CBC & Chem 7: 01/08/18 05:29 01/08/18 05:29 Laboratory Results - last 24 hr 01/08/18 01/08/18 01/09/18 17:08 21:06 02:28 POC Glucose 210 H 193 H 141 H 01/09/18 01/09/18 08:02 12:20 POC Glucose 112 H 124 H - Procedures none Assessment and Plan - Assessment (1) Neuromyelitis optica Code(s): G36.0 - Neuromyelitis optica [Devic] Status: Acute (2) Pulmonary embolism Code(s): I26.99 - Other pulmonary embolism without acute cor pulmonale Status : Acute (3) DM type 2 (diabetes mellitus, type 2) Code(s): E11.9 - Type 2 diabetes mellitus without complications Status: Acute - Plan 47-year-old female with a history of diabetes, neuromyelitis optica with transverse myelitis that resulted in sensorimotor paraplegia diagnosed in May 2017, arthritis, hypertension, iron deficiency anemia was a transfer back from [facility]. Neuromyelitis optica, transverse myelitis, paraplegia New complaints unable to feel with her hands- UE sensation and strength much improved - Returned from [facility] following a one-month stay there. - Continue prednisone 30mg daily, CellCept for 6 months. - Bactrim Wednesday/Wednesday/Wednesday prophylactically. - Continue physical therapy, Occupational Therapy.- patient motivated appreciate Neurology following. Hematology following as well IV Rituxan as per hematology, neurology. Diabetes mellitus, insulin-dependent HgA1C 7.9 (10/05/17) Blood glucose overall good- difficult with steroids on board - continue on Levemir 30u daily and 25 units at night. Continue on prandial NovoLog 15 units 3 times daily. - Resume patient's home medication glyburide but at lower dose - continue accucheks and ISS Hypertension, chronic essential - Continue metoprolol Anemia of chronic disease - H&H are stable and no further hematuria - Continue to monitor CBC as indicated Pulmonary embolus - restarted Eliquis-12/16 no plans for permacath anymore Neurogenic bladder Urinary retention - Suprapubic catheter in place. Appreciate urology recommendations. - Suprapubic catheter exchange and upsizing 11/14 - SC changed 12/15 - routine care - and change q 4 weeks Constipation - Bowel regimen. Continue Senokot daily. Tried lactulose, milk milk of magnesia however without bowel movement. Had magnesium citrate. Dulcolax sup prn. monitor BMs continue MiraLAX. DVT prophylaxis Eliquis Discharge Planning: CM assisting for discharge. Can be transferred to [facility].
[2018-01-09] MEDS: Nortriptyline 10 MG Capsule PO SCH (21:39)
[2018-01-10] MEDS: Sod Chloride 0.9% Inj 1,000 ML IV.SIG SCH ×2 (04:51→16:00)
[2018-01-10 05:58] LABS: Hematocrit 38.3 % (35.0-46.0); Hemoglobin 12.1 gm/dL (11.6-15.3); Mean Corpuscular HGB Conc 31.7 % (32.0-36.0); Mean Corpuscular Hemoglobin 26.5 pg (27.0-34.0); Mean Corpuscular Volume 83.7 fL (80.0-100.0); Mean Platelet Volume 9.6 fL (7.0-11.0); Platelet Count 201 th/mm3 (150-450); Red Blood Count 4.58 mil/mm3 (4.00-5.30); Red Cell Distribution Width 16.4 % (11.6-17.2); White Blood Count 7.3 th/mm3 (4.0-11.0)
[2018-01-10 06:08] LABS: Anion Gap 9 meq/L (5-15); Blood Urea Nitrogen 11 mg/dL (7-18); Calcium 8.9 mg/dL (8.5-10.1); Carbon Dioxide 28.5 meq/L (21.0-32.0); Chloride 104 meq/L (98-107); Glomerular Filtration Rate Greater Than 89 mL/min (>89); Glucose,Random 102 mg/dL (74-106); Potassium 3.9 meq/L (3.5-5.1); Sodium 141 meq/L (136-145)
[2018-01-10] MEDS: Insulin Detemir Inj 1,000 UNIT/10 ML Vial SQ SCH ×2 (08:25→22:13)
[2018-01-10] MEDS: Sulfamethoxazole/Trimethoprim 400/80 MG Tablet PO SCH (08:25)
[2018-01-10] MEDS: Polyethylene Glycol 3350 17 GM Packet PO SCH (08:25)
[2018-01-10] MEDS: Calcium/Vitamin D 250/125 MG Tablet PO SCH (08:25)
[2018-01-10] MEDS: glyBURIDE 2.5 MG Tablet PO SCH ×2 (08:26→17:45)
[2018-01-10] MEDS: predniSONE 10 MG Tablet PO SCH (08:26)
[2018-01-10] MEDS: Baclofen 10 MG Tablet PO SCH ×4 (08:26→22:08)
[2018-01-10] MEDS: Senna/Docusate Sodium 8.6/50 MG Tablet PO SCH ×2 (08:26→22:15)
[2018-01-10] MEDS: Calcium Acetate 667 MG Capsule PO SCH ×3 (08:26→17:46)
[2018-01-10] MEDS: Gabapentin 300 MG Capsule PO SCH ×3 (08:26→17:45)
[2018-01-10] MEDS: Ascorbic Acid 500 MG Tablet PO SCH (08:27)
[2018-01-10] MEDS: Acetaminophen 325 MG Tablet PO PRN (08:46)
[2018-01-10] MEDS: Insulin NovoLOG Aspart Correctional Sugar Inj SQ SCH ×4 (12:37→22:14)
--- NOTE | 2018-01-10 13:06 | P.PNIM ---
Subjective Interval history: Patient reports she is feeling okay today. No new issues. Physical Exam Vital signs: Vital Signs 01/09/18 15:00 01/09/18 15:58 01/09/18 19:00 Temperature 98.5 F Pulse Rate 81 81 88 Respiratory Rate 18 Blood Pressure 111/81 Pulse Oximetry 100 01/09/18 20:00 01/09/18 23:00 01/10/18 00:00 Temperature 98.5 F 98.4 F Pulse Rate 78 88 83 Respiratory Rate 16 16 Blood Pressure 119/79 129/85 Pulse Oximetry 99 99 01/10/18 03:00 01/10/18 04:00 01/10/18 07:10 Temperature 98.1 F Pulse Rate 82 80 83 Respiratory Rate 16 Blood Pressure 113/71 Pulse Oximetry 99 01/10/18 08:07 01/10/18 11:16 01/10/18 12:34 Temperature 98.8 F 98.3 F Pulse Rate 80 91 H 84 Respiratory Rate 18 18 Blood Pressure 124/80 129/91 H Pulse Oximetry 99 100 Intake & Output 01/09/18 01/10/18 01/10/18 18:59 06:59 18:59 Intake Total 650 / 650 1245 / 1245 Output Total 1025 / 1025 2500 / 2500 Balance -375 / -375 -1255 / -1255 Weight 112.2 kg Intake: Oral 650 / 650 1245 / 1245 Output: Urine Amount (Catheter) 1025 / 1025 2500 / 2500 Suprapubic 1025 / 1025 2500 / 2500 Other: Date of Last Bowel Movement 01/07/18 01/08/18 01/08/18 Narrative: GENERAL: Patient sitting up in bed. No acute distress. CARDIOVASCULAR: Regular rate and rhythm without murmurs, gallops, or rubs. RESPIRATORY: Breath sounds equal bilaterally. No accessory muscle use. GASTROINTESTINAL: Abdomen soft, non-tender, nondistended. MUSCULOSKELETAL: No cyanosis. Trace peripheral edema. NEURO: Stevo LE paralysis. - Urinary Catheter Management Suprapubic Cath placed during this visit: yes Reason for continuing: Other continuation reason Insertion date: 12/15/17 Results - Labs CBC & Chem 7: 01/10/18 05:15 01/10/18 05:15 Laboratory Results - last 24 hr 01/09/18 01/09/18 01/09/18 16:52 16:53 19:52 WBC RBC Hgb Hct MCV MCH MCHC RDW Plt Count MPV Sodium Potassium Chloride Carbon Dioxide Anion Gap BUN Creatinine Estimated GFR POC Glucose 280 H 294 H 292 H Random Glucose Calcium 01/10/18 01/10/18 01/10/18 03:01 05:15 05:15 WBC 7.3 RBC 4.58 Hgb 12.1 Hct 38.3 MCV 83.7 MCH 26.5 L MCHC 31.7 L RDW 16.4 Plt Count 201 MPV 9.6 Sodium 141 Potassium 3.9 Chloride 104 Carbon Dioxide 28.5 Anion Gap 9 BUN 11 Creatinine 0.53 Estimated GFR Greater than 89 POC Glucose 127 H Random Glucose 102 Calcium 8.9 01/10/18 01/10/18 07:53 12:09 WBC RBC Hgb Hct MCV MCH MCHC RDW Plt Count MPV Sodium Potassium Chloride Carbon Dioxide Anion Gap BUN Creatinine Estimated GFR POC Glucose 95 182 H Random Glucose Calcium - Procedures none Assessment and Plan - Assessment (1) Neuromyelitis optica Code(s): G36.0 - Neuromyelitis optica [Devic] Status: Acute (2) Pulmonary embolism Code(s): I26.99 - Other pulmonary embolism without acute cor pulmonale Status : Acute (3) DM type 2 (diabetes mellitus, type 2) Code(s): E11.9 - Type 2 diabetes mellitus without complications Status: Acute - Plan 47-year-old female with a history of diabetes, neuromyelitis optica with transverse myelitis that resulted in sensorimotor paraplegia diagnosed in May 2017, arthritis, hypertension, iron deficiency anemia was a transfer back from [facility]. Neuromyelitis optica, transverse myelitis, paraplegia New complaints unable to feel with her hands- UE sensation and strength much improved - Returned from [facility] following a one-month stay there. - Continue prednisone 30mg daily, CellCept for 6 months. - Bactrim Wednesday/Wednesday/Wednesday prophylactically. - Continue physical therapy, Occupational Therapy.- patient motivated appreciate Neurology following. Hematology following as well IV Rituxan as per hematology, neurology. Next dose on 01/20 Diabetes mellitus, insulin-dependent HgA1C 7.9 (10/05/17) Blood glucose overall good- difficult with steroids on board - continue on Levemir 30u daily and 25 units at night. Continue on prandial NovoLog 15 units 3 times daily. - Resume patient's home medication glyburide but at lower dose - continue accucheks and ISS Hypertension, chronic essential - Continue metoprolol Anemia of chronic disease - H&H are stable and no further hematuria - Continue to monitor CBC as indicated Pulmonary embolus - restarted Eliquis-12/16 no plans for permacath anymore Neurogenic bladder Urinary retention - Suprapubic catheter in place. Appreciate urology recommendations. - Suprapubic catheter exchange and upsizing 11/14 - SC changed 12/15 - routine care - and change q 4 weeks Constipation - Bowel regimen. Continue Senokot daily. Tried lactulose, milk milk of magnesia however without bowel movement. Had magnesium citrate. Dulcolax sup prn. monitor BMs continue MiraLAX. DVT prophylaxis Eliquis Discharge Planning: CM assisting for discharge. Can be transferred to [facility].
[2018-01-10] MEDS: Nortriptyline 10 MG Capsule PO SCH (22:07)
[2018-01-10] MEDS ORDERED: Acetaminophen 325 MG Tablet PO ONE (22:41)
[2018-01-11] MEDS: Sod Chloride 0.9% Inj 1,000 ML IV.SIG SCH ×3 (03:27→22:53)
[2018-01-11] MEDS: Insulin NovoLOG Aspart Correctional Sugar Inj SQ SCH ×4 (08:51→22:42)
[2018-01-11] MEDS: Baclofen 10 MG Tablet PO SCH ×4 (08:56→22:41)
[2018-01-11] MEDS: Calcium/Vitamin D 250/125 MG Tablet PO SCH (08:57)
[2018-01-11] MEDS: Gabapentin 300 MG Capsule PO SCH ×3 (08:57→17:32)
[2018-01-11] MEDS: Ascorbic Acid 500 MG Tablet PO SCH (08:58)
[2018-01-11] MEDS: Polyethylene Glycol 3350 17 GM Packet PO SCH (09:00)
[2018-01-11] MEDS: predniSONE 10 MG Tablet PO SCH (09:00)
[2018-01-11] MEDS: Senna/Docusate Sodium 8.6/50 MG Tablet PO SCH ×2 (09:01→22:52)
[2018-01-11] MEDS: glyBURIDE 2.5 MG Tablet PO SCH ×2 (09:19→17:32)
[2018-01-11] MEDS: Insulin Detemir Inj 1,000 UNIT/10 ML Vial SQ SCH ×2 (09:21→22:43)
[2018-01-11] MEDS: Calcium Acetate 667 MG Capsule PO SCH ×3 (09:21→17:32)
--- NOTE | 2018-01-11 10:27 | P.PNIM ---
Subjective Interval history: No new issues. Patient has no complaints. States she is doing okay. Physical Exam Vital signs: Vital Signs 01/10/18 11:16 01/10/18 12:34 01/10/18 14:00 Temperature 98.3 F 98.1 F Pulse Rate 91 H 84 90 Respiratory Rate 18 14 Blood Pressure 129/91 H 116/83 Pulse Oximetry 100 100 01/10/18 15:00 01/10/18 15:41 01/10/18 19:00 Temperature Pulse Rate 80 82 80 Respiratory Rate 20 Blood Pressure 146/96 H Pulse Oximetry 100 01/10/18 21:45 01/10/18 23:00 01/10/18 23:02 Temperature 98.2 F 98.2 F Pulse Rate 75 71 72 Respiratory Rate 17 17 Blood Pressure 116/83 120/77 Pulse Oximetry 100 100 01/11/18 00:09 01/11/18 03:00 01/11/18 09:22 Temperature 98.1 F 98.6 F Pulse Rate 64 85 Respiratory Rate 18 18 16 Blood Pressure 115/84 118/88 Pulse Oximetry 100 100 01/11/18 10:17 Temperature Pulse Rate 77 Respiratory Rate Blood Pressure Pulse Oximetry Intake & Output 01/10/18 01/11/18 01/11/18 18:59 06:59 18:59 Intake Total 1500 / 1500 880 / 880 Output Total 2350 / 2350 3150 / 3150 Balance -850 / -850 -2270 / -2270 Weight 112 kg Intake: Oral 1500 / 1500 880 / 880 Output: Urine Amount (Catheter) 2350 / 2350 3150 / 3150 Suprapubic 2350 / 2350 3150 / 3150 Other: Date of Last Bowel Movement 01/08/18 # Bowel Movements 1 Narrative: GENERAL: Patient sitting up in bed. No acute distress. CARDIOVASCULAR: Regular rate and rhythm without murmurs, gallops, or rubs. RESPIRATORY: Breath sounds equal bilaterally. No accessory muscle use. GASTROINTESTINAL: Abdomen soft, non-tender, nondistended. MUSCULOSKELETAL: No cyanosis. Trace peripheral edema. NEURO: Stevo LE paralysis. - Urinary Catheter Management Suprapubic Cath placed during this visit: yes Reason for continuing: Other continuation reason Insertion date: 12/15/17 Results - Labs CBC & Chem 7: 01/10/18 05:15 01/10/18 05:15 Laboratory Results - last 24 hr 01/10/18 01/10/18 01/10/18 12:09 16:45 21:47 POC Glucose 182 H 311 H 164 H 01/11/18 08:49 POC Glucose 104 - Procedures none Assessment and Plan - Assessment (1) Neuromyelitis optica Code(s): G36.0 - Neuromyelitis optica [Devic] Status: Acute (2) Pulmonary embolism Code(s): I26.99 - Other pulmonary embolism without acute cor pulmonale Status : Acute (3) DM type 2 (diabetes mellitus, type 2) Code(s): E11.9 - Type 2 diabetes mellitus without complications Status: Acute - Plan 47-year-old female with a history of diabetes, neuromyelitis optica with transverse myelitis that resulted in sensorimotor paraplegia diagnosed in May 2017, arthritis, hypertension, iron deficiency anemia was a transfer back from [facility]. Neuromyelitis optica, transverse myelitis, paraplegia New complaints unable to feel with her hands- UE sensation and strength much improved - Returned from [facility] following a one-month stay there. - Continue prednisone 30mg daily, CellCept for 6 months. - Bactrim Wednesday/Wednesday/Wednesday prophylactically. - Continue physical therapy, Occupational Therapy.- patient motivated appreciate Neurology following. Hematology following as well IV Rituxan as per hematology, neurology. Next dose on 01/20 Diabetes mellitus, insulin-dependent HgA1C 7.9 (10/05/17) Blood glucose overall good- difficult with steroids on board - continue on Levemir 30u daily and 25 units at night. Continue on prandial NovoLog 15 units 3 times daily. - Resume patient's home medication glyburide but at lower dose - continue accucheks and ISS Hypertension, chronic essential - Continue metoprolol Anemia of chronic disease - H&H are stable and no further hematuria - Continue to monitor CBC as indicated Pulmonary embolus - restarted Eliquis-12/16 no plans for permacath anymore Neurogenic bladder Urinary retention - Suprapubic catheter in place. Appreciate urology recommendations. - Suprapubic catheter exchange and upsizing 11/14 - SC changed 12/15 - routine care - and change q 4 weeks Constipation - Bowel regimen. Continue Senokot daily. Tried lactulose, milk milk of magnesia however without bowel movement. Had magnesium citrate. Dulcolax sup prn. monitor BMs continue MiraLAX. DVT prophylaxis Eliquis Discharge Planning: CM assisting for discharge. No accepting facility currently Can be transferred to [facility].
[2018-01-11] MEDS: Nortriptyline 10 MG Capsule PO SCH (22:56)
--- NOTE | 2018-01-12 07:37 | P.PN ---
Subjective Interval history: Patient is stable. She states she feels "cold down in her bones" which is something she normally feels after IV Rituxan infusions and plasmapheresis. She denies any acute medical complaints. VSS. She is afebrile. Physical Exam Vital signs: Vital Signs 01/11/18 09:22 01/11/18 10:17 01/11/18 11:43 Temperature 98.6 F Pulse Rate 85 77 84 Respiratory Rate 16 Blood Pressure 118/88 Pulse Oximetry 100 01/11/18 12:34 01/11/18 15:23 01/11/18 17:34 Temperature 97.8 F 98.6 F Pulse Rate 83 74 74 Respiratory Rate 18 20 Blood Pressure 158/73 H 114/82 Pulse Oximetry 96 100 01/11/18 21:00 01/12/18 02:29 01/12/18 05:00 Temperature 98 F 97.7 F 98.3 F Pulse Rate 79 67 75 Respiratory Rate 16 16 16 Blood Pressure 102/60 110/60 128/80 Pulse Oximetry 100 100 100 Intake & Output 01/11/18 01/12/18 01/12/18 18:59 06:59 18:59 Intake Total 720 / 720 3793 / 3793 Output Total 1850 / 1850 2800 / 2800 Balance -1130 / -1130 993 / 993 Weight 112 kg Intake: Oral 720 / 720 3318 / 3318 Oral Supplement 475 / 475 Output: Urine 1850 / 1850 Urine Amount (Catheter) 2800 / 2800 Suprapubic 2800 / 2800 Other: Date of Last Bowel Movement 01/11/18 01/11/18 # Bowel Movements 0 # Incontinent Bowel Movements 0 Narrative: GENERAL: WDWN female, INAD. Awake and alert. SKIN: Warm and dry. No generalized rash. HEENT: Atraumatic. Normocephalic. Pupils equal and round. No scleral icterus. No injection or drainage. No nasal bleeding or discharge. Mucous membranes pink and moist. NECK: Trachea midline. CARDIOVASCULAR: Regular rate and rhythm. RESPIRATORY: No accessory muscle use. Clear to auscultation anteriorly. Breath sounds equal bilaterally. GASTROINTESTINAL: Abdomen soft, non-tender, nondistended. +BS. : suprapubic catheter in place MUSCULOSKELETAL: Extremities without clubbing, cyanosis. +Trace BLE edema. NEUROLOGICAL: Awake and alert. No obvious cranial nerve deficits. Decreased motor function bilateral UEs. BLE paresis. Normal speech. PSYCHIATRIC: Appropriate mood and affect; insight and judgment normal. 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 Neuromyelitis optica, transverse myelitis, paraplegia New complaints unable to feel with her hands- UE sensation and strength much improved - Returned from [facility] following a one-month stay there. - Continue prednisone 30mg daily, CellCept for 6 months. - Bactrim Wednesday/Wednesday/Wednesday prophylactically. - Continue physical therapy, Occupational Therapy -Hematology and neurology following, patient - s/p IV Rituxin infusion 01/06. Next dose 01/20 Diabetes mellitus, insulin-dependent HgA1C 7.9 (10/05/17) Blood glucose overall good- difficult with steroids on board - continue on Levemir 30u daily and 25 units at night. Continue on prandial NovoLog 15 units 3 times daily. - Resume patient's home medication glyburide but at lower dose - continue accucheks and ISS Hypertension, chronic essential - Continue metoprolol Anemia of chronic disease - H&H are stable and no further hematuria - Continue to monitor CBC as indicated Pulmonary embolus - restarted Eliquis-12/16 no plans for permacath anymore Neurogenic bladder Urinary retention - Suprapubic catheter in place. Appreciate urology recommendations. - Suprapubic catheter exchange and upsizing 11/14 - SC changed 12/15 - routine care - and change q 4 weeks Constipation last BM 01/08 - Continue on PeriColace BID - Increase Miralax to BID scheduled - Dulcolax supp now x 1 and prn - monitor BMs DVT prophylaxis Eliquis Code Status: FULL Discussed Condition With: patient, nursing staff, Dr. Mckeon Discharge Planning: Difficult placement. CM assists with ongoing discharge planning.
[2018-01-12] MEDS: Gabapentin 300 MG Capsule PO SCH ×3 (09:33→17:28)
[2018-01-12] MEDS: Ascorbic Acid 500 MG Tablet PO SCH (09:33)
[2018-01-12] MEDS: Calcium Acetate 667 MG Capsule PO SCH ×3 (09:33→16:46)
[2018-01-12] MEDS: Polyethylene Glycol 3350 17 GM Packet PO SCH ×2 (09:33→22:26)
[2018-01-12] MEDS: predniSONE 10 MG Tablet PO SCH (09:34)
[2018-01-12] MEDS: Senna/Docusate Sodium 8.6/50 MG Tablet PO SCH ×2 (09:34→22:24)
[2018-01-12] MEDS: Sulfamethoxazole/Trimethoprim 400/80 MG Tablet PO SCH (10:19)
[2018-01-12] MEDS: Baclofen 10 MG Tablet PO SCH ×4 (10:19→22:23)
[2018-01-12] MEDS: Insulin Detemir Inj 1,000 UNIT/10 ML Vial SQ SCH ×2 (10:20→22:25)
[2018-01-12] MEDS: Insulin NovoLOG Aspart Correctional Sugar Inj SQ SCH ×4 (10:21→22:26)
[2018-01-12] MEDS: glyBURIDE 2.5 MG Tablet PO SCH ×2 (11:31→17:48)
[2018-01-12] MEDS: Calcium/Vitamin D 250/125 MG Tablet PO SCH (12:45)
[2018-01-12] MEDS: diazePAM 5 MG Tablet PO PRN (12:46)
[2018-01-12] MEDS ORDERED: Bisacodyl 10 MG Supp RECTAL ONE (13:15)
[2018-01-12] MEDS: Sod Chloride 0.9% Inj 1,000 ML IV.SIG SCH (18:37)
[2018-01-12] MEDS: Nortriptyline 10 MG Capsule PO SCH (22:24)
[2018-01-13] MEDS: Sod Chloride 0.9% Inj 1,000 ML IV.SIG SCH ×2 (04:55→15:25)
--- NOTE | 2018-01-13 07:30 | P.PN ---
Subjective Interval history: Patient is complaining of left hip pain after being repositioned late yesterday. She denies any other complaints. Vital signs are stable. She is afebrile. Physical Exam Vital signs: Vital Signs 01/12/18 08:00 01/12/18 12:00 01/12/18 16:00 Temperature 98.1 F 98.5 F 98.6 F Pulse Rate 99 H 93 H 87 Respiratory Rate 18 18 18 Blood Pressure 119/75 126/75 101/59 L Pulse Oximetry 100 100 99 01/12/18 20:15 01/12/18 23:00 01/13/18 03:00 Temperature 98.5 F 98.1 F 98.2 F Pulse Rate 81 78 78 Respiratory Rate 16 18 Blood Pressure 115/63 125/78 106/58 L Pulse Oximetry 98 100 Intake & Output 01/12/18 01/13/18 01/13/18 18:59 06:59 18:59 Intake Total 480 / 480 640 / 640 Output Total 2800 / 2800 1900 / 1900 Balance -2320 / -2320 -1260 / -1260 Weight 112.8 kg Intake: Oral 480 / 480 640 / 640 Output: Urine 1000 / 1000 800 / 800 Urine Amount (Catheter) 1800 / 1800 1100 / 1100 Suprapubic 1800 / 1800 1100 / 1100 Other: Date of Last Bowel Movement 01/11/18 01/13/18 Narrative: GENERAL: WDWN female, INAD. Awake and alert. Sitting up in bed. SKIN: Warm and dry. No generalized rash. HEENT: Atraumatic. Normocephalic. Pupils equal and round. No scleral icterus. No injection or drainage. No nasal bleeding or discharge. Mucous membranes pink and moist. NECK: Trachea midline. CARDIOVASCULAR: Regular rate and rhythm. RESPIRATORY: No accessory muscle use. Clear to auscultation anteriorly. Breath sounds equal bilaterally. GASTROINTESTINAL: Abdomen soft, non-tender, nondistended. +BS. : suprapubic catheter in place MUSCULOSKELETAL: Extremities without clubbing, cyanosis. +Trace BLE edema. + mild tenderness to palpation over palpation left greater trochanteric bursa. NEUROLOGICAL: Awake and alert. No obvious cranial nerve deficits. Decreased motor function bilateral UEs. BLE paresis. Normal speech. PSYCHIATRIC: Appropriate mood and affect; insight and judgment normal. 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 Left hip pain Patient reports left hip pain after being moved yesterday -Obtain xray Left hip for further evaluation -ice left hip prn Neuromyelitis optica, transverse myelitis, paraplegia New complaints unable to feel with her hands- UE sensation and strength much improved - Returned from [facility] following a one-month stay there. - Continue prednisone 30mg daily, CellCept for 6 months. - Bactrim Wednesday/Wednesday/Wednesday prophylactically. - Continue physical therapy, Occupational Therapy - Hematology and neurology following - s/p IV Rituxin infusion 01/06. Next dose 01/20 Diabetes mellitus, insulin-dependent HgA1C 7.9 (10/05/17) Blood glucose overall good - continue on Levemir 30u daily and 25 units at night. Continue on prandial NovoLog 15 units 3 times daily. - Resume patient's home medication glyburide but at lower dose - continue accucheks and ISS Hypertension, chronic essential - Continue metoprolol Anemia of chronic disease - H&H are stable and no further hematuria - Continue to monitor CBC as indicated Pulmonary embolus - restarted Eliquis-12/16 no plans for permacath anymore Neurogenic bladder Urinary retention - Suprapubic catheter in place. Appreciate urology recommendations. - Suprapubic catheter exchange and upsizing 11/14 - SC changed 12/15 - routine care - and change q 4 weeks Constipation +BM - Continue on PeriColace BID - Continue on Miralax BID scheduled - monitor BMs DVT prophylaxis Eliquis Code Status: FULL Discussed Condition With: patient, nursing staff, Dr. Mckeon Discharge Planning: Difficult placement. CM assists with ongoing discharge planning.
[2018-01-13] MEDS: Insulin Detemir Inj 1,000 UNIT/10 ML Vial SQ SCH ×2 (08:09→22:08)
[2018-01-13] MEDS: Polyethylene Glycol 3350 17 GM Packet PO SCH ×2 (10:22→21:23)
[2018-01-13] MEDS: Gabapentin 300 MG Capsule PO SCH ×3 (10:24→18:26)
[2018-01-13] MEDS: predniSONE 10 MG Tablet PO SCH (10:24)
[2018-01-13] MEDS: Baclofen 10 MG Tablet PO SCH ×4 (10:25→21:23)
[2018-01-13] MEDS: Calcium/Vitamin D 250/125 MG Tablet PO SCH (10:25)
[2018-01-13] MEDS: Calcium Acetate 667 MG Capsule PO SCH ×3 (10:26→18:26)
[2018-01-13] MEDS: Senna/Docusate Sodium 8.6/50 MG Tablet PO SCH ×2 (10:26→21:23)
[2018-01-13] MEDS: Insulin NovoLOG Aspart Correctional Sugar Inj SQ SCH ×4 (10:27→22:08)
[2018-01-13] MEDS: Ascorbic Acid 500 MG Tablet PO SCH (10:27)
[2018-01-13] MEDS: glyBURIDE 2.5 MG Tablet PO SCH ×2 (10:40→17:29)
[2018-01-13] MEDS: diazePAM 5 MG Tablet PO PRN (13:10)
--- NOTE | 2018-01-13 14:48 | XR ---
EXAM DATE: 01/13/2018 2:36 PM EDT AGE/SEX: 47 years / Female INDICATIONS: Left hip pain, no trauma. CLINICAL DATA: This is the patient's initial encounter. Patient reports that signs and symptoms have been present for 3 days and indicates a pain score of 8/10. MEDICAL/SURGICAL HISTORY: Hypertension. Diabetes mellitus type II. Chemotherapy for ANO. Cesa rean section. Appendectomy. COMPARISON: No prior exams available for comparison. FINDINGS: AP and lateral views of the left hip joint demonstrate no fracture or dislocation. There is acetabula r osteophyte. No significant joint space narrowing is present. Visualized pelvic bones and left sacro iliac joint demonstrate no abnormality. No soft tissue abnormality or radiopaque foreign body is iden tified. CONCLUSION: No acute left hip joint abnormality is identified. Electronically signed by: Camden Giron MD 01/13/2018 2:47 PM EDT
[2018-01-13] MEDS: Acetaminophen 325 MG Tablet PO PRN (21:22)
[2018-01-13] MEDS: Nortriptyline 10 MG Capsule PO SCH (21:22)
[2018-01-14] MEDS: diazePAM 5 MG Tablet PO PRN (05:31)
[2018-01-14] MEDS: Acetaminophen 325 MG Tablet PO PRN (05:31)
[2018-01-14] MEDS: Sod Chloride 0.9% Inj 1,000 ML IV.SIG SCH ×3 (05:46→21:59)
--- NOTE | 2018-01-14 07:26 | P.PN ---
Subjective Interval history: Patient continues to complain of left hip pain with repositioning. X-ray left hip is negative. She denies any other medical complaints. She is asking about her discharge. Physical Exam Vital signs: Vital Signs 01/13/18 08:00 01/13/18 11:00 01/13/18 12:00 Temperature 98.3 F 97.6 F 97.7 F Pulse Rate 79 86 94 H Respiratory Rate 20 20 20 Blood Pressure 162/90 H 132/76 109/66 Pulse Oximetry 99 100 100 01/13/18 15:00 01/13/18 20:00 01/14/18 04:00 Temperature 98.8 F 98.2 F Pulse Rate 88 79 Respiratory Rate 22 18 20 Blood Pressure 124/75 134/77 Pulse Oximetry 100 98 Intake & Output 01/13/18 01/14/18 01/14/18 18:59 06:59 18:59 Output Total 960 / 960 900 / 900 Balance -960 / -960 -900 / -900 Weight 107.6 kg Output: Urine 960 / 960 900 / 900 Other: Date of Last Bowel Movement 01/14/18 Narrative: GENERAL: WDWN female, INAD. Awake and alert. Sitting up in bed eating breakfast. Appears comfortable. SKIN: Warm and dry. No generalized rash. HEENT: Atraumatic. Normocephalic. Pupils equal and round. No scleral icterus. No injection or drainage. No nasal bleeding or discharge. Mucous membranes pink and moist. NECK: Trachea midline. CARDIOVASCULAR: Regular rate and rhythm. RESPIRATORY: No accessory muscle use. Clear to auscultation anteriorly. Breath sounds equal bilaterally. GASTROINTESTINAL: Abdomen soft, non-tender, nondistended. +BS. : suprapubic catheter in place MUSCULOSKELETAL: Extremities without clubbing, cyanosis. +Trace BLE edema. + mild tenderness to palpation over palpation left greater trochanteric bursa. NEUROLOGICAL: Awake and alert. No obvious cranial nerve deficits. Decreased motor function bilateral UEs. BLE paresis. Normal speech. PSYCHIATRIC: Appropriate mood and affect; insight and judgment normal. - Urinary Catheter Management Suprapubic Cath placed during this visit: yes Reason for continuing: Acute urinary retention Insertion date: 12/15/17 Results - Labs CBC & Chem 7: 01/14/18 05:30 01/14/18 05:30 Laboratory Results - last 24 hr 08/23/18 08/23/18 08/23/18 07:46 12:59 18:14 POC Glucose 89 206 H 267 H 01/13/18 01/14/18 21:31 06:42 POC Glucose 175 H 148 H - Imaging Impressions Hip X-Ray 01/13/18 00:00 CONCLUSION: No acute left hip joint abnormality is identified. 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 Neuromyelitis optica, transverse myelitis, paraplegia New complaints unable to feel with her hands- UE sensation and strength much improved - Returned from [facility] following a one-month stay there. - Continue prednisone 30mg daily, CellCept for 6 months. - Bactrim Wednesday/Wednesday/Wednesday prophylactically. - Continue physical therapy, Occupational Therapy - Hematology and neurology following - s/p IV Rituxin infusion 01/06. Next dose 01/20 Diabetes mellitus, insulin-dependent HgA1C 7.9 (10/05/17) Blood glucose overall good - continue on Levemir 30u daily and 25 units at night. Continue on prandial NovoLog 10 units 3 times daily. - Resume patient's home medication glyburide but at lower dose - continue accucheks and ISS Hypertension, chronic essential - Continue metoprolol Anemia of chronic disease - H&H are stable and no further hematuria - Continue to monitor CBC as indicated Pulmonary embolus - restarted Eliquis-12/16 no plans for permacath anymore Neurogenic bladder Urinary retention - Suprapubic catheter in place. Appreciate urology recommendations. - Suprapubic catheter exchange and upsizing 11/14 - SC changed 12/15 - routine care - and change q 4 weeks. 01/14 order placed for suprapubic catheter change Left hip pain Patient reports left hip pain after being moved yesterday Xray neg -trial of NSAIDS x 2 days. Continue on Protonix. -ice left hip prn Constipation +BM - Continue on PeriColace BID - Continue on Miralax BID scheduled - monitor BMs DVT prophylaxis Eliquis Discussed Condition With: patient, nursing staff, Dr. Mckeon Discharge Planning: Difficult placement. CM assists with ongoing discharge planning.
[2018-01-14 07:30] LABS: Baso % (Auto) 0.3 % (0.0-2.0); Eos # (Auto) 0.1 th/mm3 (0.0-0.4); Eos % (Auto) 0.8 % (0.0-4.0); Hemoglobin 12.2 gm/dL (11.6-15.3); Lymph # (Auto) 3.1 th/mm3 (1.0-4.8); Lymph % (Auto) 45.7 % (9.0-44.0); Mean Corpuscular Hemoglobin 26.9 pg (27.0-34.0); Mean Corpuscular Volume 81.7 fL (80.0-100.0); Mean Platelet Volume 9.6 fL (7.0-11.0); Mono # (Auto) 0.6 th/mm3 (0.0-0.9); Mono % (Auto) 8.3 % (0.0-8.0); Neut % (Auto) 44.9 % (16.0-70.0); Platelet Count 224 th/mm3 (150-450); Red Blood Count 4.53 mil/mm3 (4.00-5.30); Red Cell Distribution Width 16.6 % (11.6-17.2); White Blood Count 6.7 th/mm3 (4.0-11.0)
[2018-01-14 08:04] LABS: Anion Gap 9 meq/L (5-15); Blood Urea Nitrogen 11 mg/dL (7-18); Calcium 8.9 mg/dL (8.5-10.1); Carbon Dioxide 29.5 meq/L (21.0-32.0); Chloride 103 meq/L (98-107); Glomerular Filtration Rate Greater Than 89 mL/min (>89); Glucose,Random 105 mg/dL (74-106); Magnesium 2.2 mg/dL (1.5-2.5); Phosphorus 3.6 mg/dL (2.5-4.9); Potassium 3.9 meq/L (3.5-5.1); Sodium 141 meq/L (136-145)
[2018-01-14] MEDS: Insulin Detemir Inj 1,000 UNIT/10 ML Vial SQ SCH ×2 (09:50→22:38)
[2018-01-14] MEDS: Baclofen 10 MG Tablet PO SCH ×4 (09:52→20:25)
[2018-01-14] MEDS: Ascorbic Acid 500 MG Tablet PO SCH (09:52)
[2018-01-14] MEDS: Insulin NovoLOG Aspart Correctional Sugar Inj SQ SCH ×4 (09:52→22:39)
[2018-01-14] MEDS: Calcium/Vitamin D 250/125 MG Tablet PO SCH (09:53)
[2018-01-14] MEDS: Gabapentin 300 MG Capsule PO SCH ×3 (09:53→19:09)
[2018-01-14] MEDS: Calcium Acetate 667 MG Capsule PO SCH ×3 (09:53→19:09)
[2018-01-14] MEDS: predniSONE 10 MG Tablet PO SCH (09:53)
[2018-01-14] MEDS: Senna/Docusate Sodium 8.6/50 MG Tablet PO SCH ×2 (09:53→20:25)
[2018-01-14] MEDS: Polyethylene Glycol 3350 17 GM Packet PO SCH ×2 (09:54→20:24)
[2018-01-14] MEDS: Sulfamethoxazole/Trimethoprim 400/80 MG Tablet PO SCH (09:54)
[2018-01-14] MEDS: glyBURIDE 2.5 MG Tablet PO SCH ×2 (11:04→19:09)
[2018-01-14] MEDS: Ibuprofen 600 MG Tablet PO SCH ×2 (17:01→22:45)
[2018-01-14] MEDS: Nortriptyline 10 MG Capsule PO SCH (20:25)
[2018-01-15] MEDS: Ibuprofen 600 MG Tablet PO SCH ×3 (06:29→21:17)
[2018-01-15] MEDS: diazePAM 5 MG Tablet PO PRN (06:30)
[2018-01-15] MEDS: Sod Chloride 0.9% Inj 1,000 ML IV.SIG SCH ×2 (06:59→17:59)
[2018-01-15] MEDS: Baclofen 10 MG Tablet PO SCH ×4 (09:39→20:35)
[2018-01-15] MEDS: Senna/Docusate Sodium 8.6/50 MG Tablet PO SCH ×2 (09:40→20:34)
[2018-01-15] MEDS: predniSONE 10 MG Tablet PO SCH (09:40)
[2018-01-15] MEDS: Gabapentin 300 MG Capsule PO SCH ×3 (09:41→18:02)
[2018-01-15] MEDS: Insulin NovoLOG Aspart Correctional Sugar Inj SQ SCH ×4 (09:42→22:08)
[2018-01-15] MEDS: Calcium Acetate 667 MG Capsule PO SCH ×3 (09:42→18:02)
[2018-01-15] MEDS: Ascorbic Acid 500 MG Tablet PO SCH (09:43)
[2018-01-15] MEDS: Calcium/Vitamin D 250/125 MG Tablet PO SCH (09:43)
[2018-01-15] MEDS: Insulin Detemir Inj 1,000 UNIT/10 ML Vial SQ SCH ×2 (09:44→22:07)
[2018-01-15] MEDS: Polyethylene Glycol 3350 17 GM Packet PO SCH ×2 (10:01→20:35)
[2018-01-15] MEDS: glyBURIDE 2.5 MG Tablet PO SCH ×2 (10:01→18:00)
--- NOTE | 2018-01-15 10:38 | P.PNIM ---
Subjective Interval history: Patient seen and examined this morning. Afebrile vital signs stable. Patient reports that she has been working with physical therapy however over the weekend as they are not been as consistent. She reports still having some mild left hip pain. Imaging of the left hip showed no acute injury to the left hip joint at this time. Continue to encourage ice and activity with the physical therapy. Physical Exam Vital signs: Vital Signs 01/14/18 11:00 01/14/18 15:00 01/14/18 19:00 Temperature 98 F 98.5 F 98.3 F Pulse Rate 83 82 83 Respiratory Rate 18 18 18 Blood Pressure 116/80 141/85 H 115/62 Pulse Oximetry 100 100 100 01/15/18 03:00 01/15/18 08:00 Temperature 97.9 F 97.5 F L Pulse Rate 70 66 Respiratory Rate 18 16 Blood Pressure 146/79 H 142/71 H Pulse Oximetry 99 98 Intake & Output 01/14/18 01/15/18 01/15/18 18:59 06:59 18:59 Output Total 2200 / 2200 Balance -2200 / -2200 Weight 107.5 kg Output: Urine 2200 / 2200 Other: # Bowel Movements 1 Narrative: GENERAL: WDWN female, INAD. Awake and alert. Sitting up in bed Appears comfortable. SKIN: Warm and dry. No generalized rash. HEENT: Atraumatic. Normocephalic. Pupils equal and round. No scleral icterus. No injection or drainage. No nasal bleeding or discharge. Mucous membranes pink and moist. NECK: Trachea midline. CARDIOVASCULAR: Regular rate and rhythm. RESPIRATORY: No accessory muscle use. Clear to auscultation anteriorly. Breath sounds equal bilaterally. GASTROINTESTINAL: Abdomen soft, non-tender, nondistended. +BS. : suprapubic catheter in place MUSCULOSKELETAL: Extremities without clubbing, cyanosis. +Trace BLE edema. + mild tenderness to palpation over palpation left greater trochanteric bursa. NEUROLOGICAL: Awake and alert. No obvious cranial nerve deficits. Decreased motor function bilateral UEs. BLE paresis. Normal speech. PSYCHIATRIC: Appropriate mood and affect; insight and judgment normal. - Urinary Catheter Management Suprapubic Cath placed during this visit: yes Reason for continuing: Acute urinary retention Insertion date: 12/15/17 Results - Labs CBC & Chem 7: 01/14/18 05:30 01/14/18 05:30 Laboratory Results - last 24 hr 01/14/18 01/14/18 01/14/18 12:16 17:45 21:57 POC Glucose 228 H 272 H 277 H 01/15/18 01/15/18 06:39 07:43 POC Glucose 170 H 160 H - Imaging Chest X-Ray 11/29/17 00:00 CONCLUSION: Negative for an acute process Cervical Spine MRI 12/15/17 00:00 CONCLUSION: Thoracic Spine MRI 12/15/17 00:00 CONCLUSION: Tube Change 12/15/17 00:00 CONCLUSION: 1. Uncomplicated suprapubic catheter exchange. Hip X-Ray 01/13/18 00:00 CONCLUSION: No acute left hip joint abnormality is identified. 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. Neuromyelitis optica, transverse myelitis, paraplegia New complaints unable to feel with her hands- UE sensation and strength much improved - Returned from [facility] following a one-month stay there. - Continue prednisone 30mg daily, CellCept for 6 months. - Bactrim Wednesday/Wednesday/Wednesday prophylactically. - Continue physical therapy, Occupational Therapy - Hematology and neurology following - s/p IV Rituxin infusion 01/06. Next dose 01/20 Diabetes mellitus, insulin-dependent HgA1C 7.9 (10/05/17) Blood glucose overall good - continue on Levemir 30u daily and 25 units at night. Continue on prandial NovoLog 10 units 3 times daily. - Resume patient's home medication glyburide but at lower dose - continue accucheks and ISS Hypertension, chronic essential - Continue metoprolol Anemia of chronic disease - H&H are stable and no further hematuria - Continue to monitor CBC as indicated Pulmonary embolus - restarted Eliquis-12/16 no plans for permacath anymore Neurogenic bladder Urinary retention - Suprapubic catheter in place. Appreciate urology recommendations. - Suprapubic catheter exchange and upsizing 11/14 - SC changed 12/15 - routine care - and change q 4 weeks. 01/14 order placed for suprapubic catheter change, changed scheduled for 01/15 Left hip pain Patient reports left hip pain after being moved yesterday Xray neg -trial of NSAIDS x 2 days. Continue on Protonix. -ice left hip prn Constipation +BM - Continue on PeriColace BID - Continue on Miralax BID scheduled - monitor BMs DVT prophylaxis Eliquis Discharge Planning: Difficult placement. CM assists with ongoing discharge planning.
[2018-01-15] MEDS: Nortriptyline 10 MG Capsule PO SCH (20:34)
[2018-01-16] MEDS: Sod Chloride 0.9% Inj 1,000 ML IV.SIG SCH ×3 (03:59→21:59)
[2018-01-16] MEDS: Ibuprofen 600 MG Tablet PO SCH (05:21)
[2018-01-16] MEDS: predniSONE 10 MG Tablet PO SCH (09:38)
[2018-01-16] MEDS: Ascorbic Acid 500 MG Tablet PO SCH (09:39)
[2018-01-16] MEDS: Baclofen 10 MG Tablet PO SCH ×4 (09:40→21:54)
[2018-01-16] MEDS: Senna/Docusate Sodium 8.6/50 MG Tablet PO SCH ×2 (09:40→21:55)
[2018-01-16] MEDS: glyBURIDE 2.5 MG Tablet PO SCH ×2 (09:41→17:49)
[2018-01-16] MEDS: Calcium Acetate 667 MG Capsule PO SCH ×3 (09:41→17:49)
[2018-01-16] MEDS: Polyethylene Glycol 3350 17 GM Packet PO SCH ×2 (09:42→21:57)
[2018-01-16] MEDS: Calcium/Vitamin D 250/125 MG Tablet PO SCH (09:42)
[2018-01-16] MEDS: Gabapentin 300 MG Capsule PO SCH ×3 (09:42→17:49)
[2018-01-16] MEDS: Insulin Detemir Inj 1,000 UNIT/10 ML Vial SQ SCH ×2 (09:43→21:57)
[2018-01-16] MEDS: Insulin NovoLOG Aspart Correctional Sugar Inj SQ SCH ×4 (09:43→21:56)
--- NOTE | 2018-01-16 11:03 | P.PNIM ---
Subjective Interval history: Patient seen and examined this morning. Afebrile vital signs stable. No acute events overnight. Patient's main concern is that her suprapubic tube has not been changed. Will reconsult for tube change at this time. She denies any chest pain or shortness of breath. Patient denies any pain overall. Physical Exam Vital signs: Vital Signs 01/15/18 12:00 01/15/18 16:00 01/15/18 20:00 Temperature 97.9 F 97.9 F 98.8 F Pulse Rate 55 L 81 76 Respiratory Rate 16 16 20 Blood Pressure 133/79 129/72 129/82 Pulse Oximetry 91 L 98 99 01/16/18 00:00 01/16/18 04:00 01/16/18 08:00 Temperature 98 F 98.1 F 98.1 F Pulse Rate 62 78 77 Respiratory Rate 18 18 14 Blood Pressure 129/61 127/84 145/67 H Pulse Oximetry 93 L 99 98 Intake & Output 01/15/18 01/16/18 01/16/18 18:59 06:59 18:59 Output Total 1400 / 1400 Balance -1400 / -1400 Weight 107.5 kg Output: Urine Amount (Catheter) 1400 / 1400 Suprapubic 1400 / 1400 Other: Date of Last Bowel Movement 01/16/18 Narrative: GENERAL: WDWN female, INAD. Awake and alert. Sitting up in bed Appears comfortable. SKIN: Warm and dry. No generalized rash. HEENT: Atraumatic. Normocephalic. Pupils equal and round. No scleral icterus. No injection or drainage. No nasal bleeding or discharge. Mucous membranes pink and moist. NECK: Trachea midline. CARDIOVASCULAR: Regular rate and rhythm. RESPIRATORY: No accessory muscle use. Clear to auscultation anteriorly. Breath sounds equal bilaterally. GASTROINTESTINAL: Abdomen soft, non-tender, nondistended. +BS. : suprapubic catheter in place MUSCULOSKELETAL: Extremities without clubbing, cyanosis. +Trace BLE edema. Today he denies any tenderness to palpation over the trochanteric bursa NEUROLOGICAL: Awake and alert. No obvious cranial nerve deficits. Decreased motor function bilateral UEs. BLE paresis. Normal speech. PSYCHIATRIC: Appropriate mood and affect; insight and judgment normal. 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 Neuromyelitis optica, transverse myelitis, paraplegia New complaints unable to feel with her hands- UE sensation and strength much improved - Returned from [facility] following a one-month stay there. - Continue prednisone 30mg daily, CellCept for 6 months. - Bactrim Wednesday/Wednesday/Wednesday prophylactically. - Continue physical therapy, Occupational Therapy - Hematology and neurology following - s/p IV Rituxin infusion 01/06. Next dose 01/20 Diabetes mellitus, insulin-dependent HgA1C 7.9 (10/05/17) Blood glucose overall good - continue on Levemir 30u daily and 25 units at night. Continue on prandial NovoLog 10 units 3 times daily. - Resume patient's home medication glyburide but at lower dose - continue accucheks and ISS Hypertension, chronic essential - Continue metoprolol Anemia of chronic disease - H&H are stable and no further hematuria - Continue to monitor CBC as indicated Pulmonary embolus - restarted Eliquis-12/16 no plans for permacath anymore Neurogenic bladder Urinary retention - Suprapubic catheter in place. Appreciate urology recommendations. - Suprapubic catheter exchange and upsizing 11/14 - SC changed 12/15 - routine care - and change q 4 weeks. 01/14 order placed for suprapubic catheter change, changed scheduled for 01/15, reordered suprapubic catheter change Left hip pain Patient reports left hip pain after being moved yesterday Xray neg -trial of NSAIDS x 2 days. Continue on Protonix. -ice left hip prn Constipation +BM - Continue on PeriColace BID - Continue on Miralax BID scheduled - monitor BMs DVT prophylaxis Eliquis Code Status: Full code Discharge Planning: Difficult placement. CM assists with ongoing discharge planning.
[2018-01-16] MEDS: Nortriptyline 10 MG Capsule PO SCH (21:56)
[2018-01-17] MEDS: diazePAM 5 MG Tablet PO PRN (06:36)
[2018-01-17 07:48] LABS: Hematocrit 36.4 % (35.0-46.0); Hemoglobin 11.7 gm/dL (11.6-15.3); Mean Corpuscular HGB Conc 32.2 % (32.0-36.0); Mean Corpuscular Hemoglobin 26.5 pg (27.0-34.0); Mean Corpuscular Volume 82.5 fL (80.0-100.0); Mean Platelet Volume 9.4 fL (7.0-11.0); Platelet Count 203 th/mm3 (150-450); Red Blood Count 4.42 mil/mm3 (4.00-5.30); Red Cell Distribution Width 16.7 % (11.6-17.2); White Blood Count 6.6 th/mm3 (4.0-11.0)
[2018-01-17 07:49] LABS: Albumin 3.2 g/dL (3.4-5.0); Anion Gap 9 meq/L (5-15); Aspartate Aminotransferase 25 U/L (15-37); Blood Urea Nitrogen 12 mg/dL (7-18); Calcium 9.2 mg/dL (8.5-10.1); Carbon Dioxide 29.1 meq/L (21.0-32.0); Chloride 104 meq/L (98-107); Glomerular Filtration Rate Greater Than 89 mL/min (>89); Glucose,Random 113 mg/dL (74-106); Potassium 3.8 meq/L (3.5-5.1); Sodium 142 meq/L (136-145)
[2018-01-17 07:50] LABS: Alanine Aminotransferase 56 U/L (10-53)
[2018-01-17 07:53] LABS: Alkaline Phosphatase 68 U/L (45-117); Total Protein 6.9 g/dL (6.4-8.2)
[2018-01-17] MEDS: Sod Chloride 0.9% Inj 1,000 ML IV.SIG SCH ×2 (08:38→18:01)
[2018-01-17] MEDS: Polyethylene Glycol 3350 17 GM Packet PO SCH ×2 (08:41→21:39)
[2018-01-17] MEDS: Calcium/Vitamin D 250/125 MG Tablet PO SCH (08:42)
[2018-01-17] MEDS: Sulfamethoxazole/Trimethoprim 400/80 MG Tablet PO SCH (08:42)
[2018-01-17] MEDS: Calcium Acetate 667 MG Capsule PO SCH ×3 (08:42→17:59)
[2018-01-17] MEDS: predniSONE 10 MG Tablet PO SCH (08:42)
[2018-01-17] MEDS: Baclofen 10 MG Tablet PO SCH ×4 (08:42→21:39)
[2018-01-17] MEDS: Gabapentin 300 MG Capsule PO SCH ×3 (08:42→18:17)
[2018-01-17] MEDS: glyBURIDE 2.5 MG Tablet PO SCH ×2 (08:43→17:59)
[2018-01-17] MEDS: Ascorbic Acid 500 MG Tablet PO SCH (08:43)
[2018-01-17] MEDS: Senna/Docusate Sodium 8.6/50 MG Tablet PO SCH ×2 (08:43→21:40)
[2018-01-17] MEDS: Insulin NovoLOG Aspart Correctional Sugar Inj SQ SCH ×5 (08:44→21:43)
[2018-01-17] MEDS: Insulin Detemir Inj 1,000 UNIT/10 ML Vial SQ SCH ×2 (08:44→21:42)
[2018-01-17] MEDS ORDERED: Iohexol 350 MG/ML 50 ML Vial (for Rad Diag) IVCONTRAST ONE (12:16)
--- NOTE | 2018-01-17 12:22 | P.PNIM ---
Subjective Interval history: Patient seen and examined this morning. Afebrile vital signs stable. Patient was transported to get her suprapubic catheter replaced. She is very excited about having this replaced. Next treatment dose is 01/20/18. No reports of pain and states that she is doing well and is in good spirits. Physical Exam Vital signs: Vital Signs 01/16/18 17:55 01/16/18 20:00 01/17/18 00:00 Temperature 98.2 F 97.9 F 97.7 F Pulse Rate 75 72 76 Respiratory Rate 16 18 18 Blood Pressure 123/76 119/66 117/67 Pulse Oximetry 100 94 L 95 01/17/18 04:00 01/17/18 07:00 Temperature 98.7 F 98.8 F Pulse Rate 77 80 Respiratory Rate 18 20 Blood Pressure 131/71 136/87 Pulse Oximetry 99 99 Intake & Output 01/16/18 01/17/18 01/17/18 18:59 06:59 18:59 Output Total 700 / 700 2100 / 2100 600 / 600 Balance -700 / -700 -2100 / -2100 -600 / -600 Weight 107.5 kg Output: Urine 2099 / 2100 Urine Amount (Catheter) 700 / 700 600 / 600 Suprapubic 700 / 700 600 / 600 Other: Date of Last Bowel Movement 01/16/18 01/16/18 # Bowel Movements 1 Narrative: GENERAL: WDWN female, INAD. Awake and alert. lying in bed appears comfortable. SKIN: Warm and dry. No generalized rash. HEENT: Atraumatic. Normocephalic. Pupils equal and round. No scleral icterus. No injection or drainage. No nasal bleeding or discharge. Mucous membranes pink and moist. NECK: Trachea midline. CARDIOVASCULAR: Regular rate and rhythm. RESPIRATORY: No accessory muscle use. Clear to auscultation anteriorly. Breath sounds equal bilaterally. GASTROINTESTINAL: Abdomen soft, non-tender, nondistended. +BS. : suprapubic catheter in place MUSCULOSKELETAL: Extremities without clubbing, cyanosis. +Trace BLE edema. Today he denies any tenderness to palpation over the trochanteric bursa NEUROLOGICAL: Awake and alert. No obvious cranial nerve deficits. Decreased motor function bilateral UEs. BLE paresis. Normal speech. PSYCHIATRIC: Appropriate mood and affect; insight and judgment normal. - Urinary Catheter Management Suprapubic Cath placed during this visit: yes Reason for continuing: Acute urinary retention Insertion date: 12/15/17 Results - Labs CBC & Chem 7: 01/17/18 06:30 01/17/18 06:30 Laboratory Results - last 24 hr 01/16/18 01/16/18 01/16/18 12:23 17:47 19:36 WBC RBC Hgb Hct MCV MCH MCHC RDW Plt Count MPV Sodium Potassium Chloride Carbon Dioxide Anion Gap BUN Creatinine Estimated GFR POC Glucose 176 H 255 H 304 H Random Glucose Calcium Total Bilirubin AST ALT Alkaline Phosphatase Total Protein Albumin 01/17/18 01/17/18 01/17/18 02:48 06:30 06:30 WBC 6.6 RBC 4.42 Hgb 11.7 Hct 36.4 MCV 82.5 MCH 26.5 L MCHC 32.2 RDW 16.7 Plt Count 203 MPV 9.4 Sodium 142 Potassium 3.8 Chloride 104 Carbon Dioxide 29.1 Anion Gap 9 BUN 12 Creatinine 0.60 Estimated GFR Greater than 89 POC Glucose 87 Random Glucose 113 H Calcium 9.2 Total Bilirubin 0.5 AST 25 ALT 56 H Alkaline Phosphatase 68 Total Protein 6.9 Albumin 3.2 L 01/17/18 01/17/18 07:08 10:55 WBC RBC Hgb Hct MCV MCH MCHC RDW Plt Count MPV Sodium Potassium Chloride Carbon Dioxide Anion Gap BUN Creatinine Estimated GFR POC Glucose 143 H 143 H Random Glucose Calcium Total Bilirubin AST ALT Alkaline Phosphatase Total Protein Albumin - Procedures none Assessment and Plan - Assessment (1) Neuromyelitis optica Code(s): G36.0 - Neuromyelitis optica [Devic] Status: Acute (2) Pulmonary embolism Code(s): I26.99 - Other pulmonary embolism without acute cor pulmonale Status : Acute (3) DM type 2 (diabetes mellitus, type 2) Code(s): E11.9 - Type 2 diabetes mellitus without complications Status: Acute - Plan 47-year-old female with a history of diabetes, 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. Neuromyelitis optica, transverse myelitis, paraplegia New complaints unable to feel with her hands- UE sensation and strength much improved - Returned from [facility] following a one-month stay there. - Continue prednisone 30mg daily, CellCept for 6 months. - Bactrim Wednesday/Wednesday/Wednesday prophylactically. - Continue physical therapy, Occupational Therapy - Hematology and neurology following - s/p IV Rituxin infusion 01/06. Next dose 01/20 Diabetes mellitus, insulin-dependent HgA1C 7.9 (10/05/17) Blood glucose overall good - continue on Levemir 30u daily and 25 units at night. Continue on prandial NovoLog 10 units 3 times daily. - Resume patient's home medication glyburide but at lower dose - continue accucheks and ISS Hypertension, chronic essential - Continue metoprolol Anemia of chronic disease - H&H are stable and no further hematuria - Continue to monitor CBC as indicated Pulmonary embolus - restarted Eliquis-12/16 no plans for permacath anymore Neurogenic bladder Urinary retention - Suprapubic catheter in place. Appreciate urology recommendations. - Suprapubic catheter exchange and upsizing 11/14 - SC changed 12/15 - routine care - and change q 4 weeks. Suprapubic catheter being changed today, 01/17/15 Left hip pain Patient reports left hip pain after being moved yesterday Xray neg -trial of NSAIDS x 2 days. Continue on Protonix. -ice left hip prn Constipation +BM - Continue on PeriColace BID - Continue on Miralax BID scheduled - monitor BMs DVT prophylaxis Eliquis Code Status: Full code Discharge Planning: Difficult placement. CM assists with ongoing discharge planning.
--- NOTE | 2018-01-17 13:06 | IR ---
EXAM DATE: 01/17/2018 12:28 PM EDT AGE/SEX: 47 years / Female INDICATIONS: Patient presents with neurogenic bladder history in need of suprapubic catheter exchang e due to intermittent claudication. CLINICAL DATA: This is the patient's subsequent encounter. Patient reports that signs and symptoms h ave been present for 4 - 6 months and indicates a pain score of 0/10. MEDICAL/SURGICAL HISTORY: . Neuromyelitis optica, DVT, Anemia. . x3, Appendectomy, Suprapubic tube placement, Vascular catheter placement and removal. COMPARISON: [facility], SUPRAPUBIC TUBE EXCHANGE, 12/15/2017. . FLUORO TIME (min): 0.1 IMAGE SERIES: 1 CONTRAST (cc): 5 cc Omnipaque (iohexol) 350 MEDICATION(S): DEVICE(S): 20 Nepali Pierson . . PROCEDURE: 1. Suprapubic catheter change. 2. Conscious sedation with continuous EKG and oximetry monitoring. The risks, benefits and alternatives to the procedure were explained and verbal and written consent w as obtained. The site was prepped in sterile fashion. Full sterile technique was used, including cap, mask, steril e gloves and gown and a large sterile sheet. Hand hygiene and 2% chlorhexidine and/or betadine/alcoho l prep was utilized per protocol for cutaneous antisepsis. The skin and subcutaneous tissues were infiltrated with local anes thetic solution. A guidewire was placed through the existing catheter and over this the prescribed catheter was placed in the bladder. Positive contrast was injected to confirm position. Conscious sedation was performed with the prescribed dosages and duration as above in the presence of an independent trained radiology nurse to assist in the monitoring of the patient. EKG and oximetry remained stable throughout the procedure. The patient tolerated the procedure well and there were no complications. The patient was sent to post anesthesia recovery in stable condition. CONCLUSION: 1. Uncomplicated suprapubic catheter exchange. Electronically signed by: Alexis Diaz MD 01/17/2018 1:05 PM EDT
[2018-01-17] MEDS: Nortriptyline 10 MG Capsule PO SCH (21:40)
[2018-01-18] MEDS: Sod Chloride 0.9% Inj 1,000 ML IV.SIG SCH ×2 (03:32→12:31)
[2018-01-18] MEDS: diazePAM 5 MG Tablet PO PRN (06:05)
[2018-01-18] MEDS: predniSONE 10 MG Tablet PO SCH (08:49)
[2018-01-18] MEDS: Baclofen 10 MG Tablet PO SCH ×4 (08:50→22:07)
[2018-01-18] MEDS: Gabapentin 300 MG Capsule PO SCH ×3 (08:50→17:34)
[2018-01-18] MEDS: Ascorbic Acid 500 MG Tablet PO SCH (08:50)
[2018-01-18] MEDS: Senna/Docusate Sodium 8.6/50 MG Tablet PO SCH ×2 (08:50→22:08)
[2018-01-18] MEDS: Calcium/Vitamin D 250/125 MG Tablet PO SCH (08:50)
[2018-01-18] MEDS: Calcium Acetate 667 MG Capsule PO SCH ×3 (08:50→17:34)
[2018-01-18] MEDS: Polyethylene Glycol 3350 17 GM Packet PO SCH ×2 (08:51→22:09)
[2018-01-18] MEDS: Insulin Detemir Inj 1,000 UNIT/10 ML Vial SQ SCH ×2 (08:51→22:09)
[2018-01-18] MEDS: Insulin NovoLOG Aspart Correctional Sugar Inj SQ SCH ×4 (08:52→22:09)
[2018-01-18] MEDS: glyBURIDE 2.5 MG Tablet PO SCH ×2 (09:03→17:34)
--- NOTE | 2018-01-18 12:44 | P.PNIM ---
Subjective Interval history: Patient seen and examined. Afebrile vital signs stable. No acute events overnight. Patient had her suprapubic catheter replaced. Patient denies any major complaints or issues at this time. She reports that she came from home prior to this hospitalization. She states that she has a lot of family help at home and would prefer to go back home hospitalization. Understands that she needs to go to half-way facility. Scheduled for next treatment dose on the . Physical Exam Vital signs: Vital Signs 01/17/18 15:00 01/17/18 20:00 01/18/18 00:00 Temperature 98.5 F 98.1 F 97.9 F Pulse Rate 80 78 87 Respiratory Rate 20 18 18 Blood Pressure 130/78 127/77 106/61 Pulse Oximetry 99 100 96 01/18/18 00:08 01/18/18 04:00 01/18/18 07:00 Temperature 97.9 F Pulse Rate 76 Respiratory Rate 18 18 12 Blood Pressure 122/65 Pulse Oximetry 98 01/18/18 08:00 Temperature 98.3 F Pulse Rate 80 Respiratory Rate 20 Blood Pressure 126/80 Pulse Oximetry 20 L Intake & Output 01/17/18 01/18/18 01/18/18 18:59 06:59 18:59 Output Total 600 / 600 2300 / 2300 Balance -600 / -600 -2300 / -2300 Weight 107 kg Output: Urine 2300 / 2300 Urine Amount (Catheter) 600 / 600 Suprapubic 600 / 600 Other: Date of Last Bowel Movement 01/17/18 01/17/18 01/17/18 # Incontinent Bowel Movements 1 Narrative: GEN: Well-developed, well-nourished patient. No acute distress. CV: Regular rate and rhythm without obvious murmurs LUNGS: Clear to auscultation bilaterally. Normal respiratory effort. No wheezes , rales, rhonchi. GI: Soft, nontender, nondistended. No palpable masses. Bowel sounds WNL. EXT: No edema. NEURO/PSYCH: Afocal. Awake, alert, and oriented x3. Appropriate insight and judgment. - Urinary Catheter Management Suprapubic Cath placed during this visit: yes Reason for continuing: Acute urinary retention Insertion date: 01/17/18 Results - Labs CBC & Chem 7: 01/17/18 06:30 01/17/18 06:30 Laboratory Results - last 24 hr 01/17/18 01/17/18 01/18/18 17:06 21:21 03:29 POC Glucose 276 H 161 H 93 01/18/18 01/18/18 06:58 11:20 POC Glucose 161 H 172 H - Imaging Impressions Tube Change 01/17/18 00:00 CONCLUSION: 1. Uncomplicated suprapubic catheter exchange. 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 Neuromyelitis optica, transverse myelitis, paraplegia New complaints unable to feel with her hands- UE sensation and strength much improved - Returned from [facility] following a one-month stay there. - Continue prednisone 30mg daily, CellCept for 6 months. - Bactrim Wednesday/Wednesday/Wednesday prophylactically. - Continue physical therapy, Occupational Therapy - Hematology and neurology following - s/p IV Rituxin infusion 01/06. Next dose 01/20 Diabetes mellitus, insulin-dependent HgA1C 7.9 (10/05/17) Blood glucose overall good - continue on Levemir 30u daily and 25 units at night. Continue on prandial NovoLog 10 units 3 times daily. - Resume patient's home medication glyburide but at lower dose - continue accucheks and ISS Hypertension, chronic essential - Continue metoprolol Anemia of chronic disease - H&H are stable and no further hematuria - Continue to monitor CBC as indicated Pulmonary embolus - restarted Eliquis-12/16 no plans for permacath anymore Neurogenic bladder Urinary retention - Suprapubic catheter in place. Appreciate urology recommendations. - Suprapubic catheter exchange and upsizing 11/14 - SC changed 12/15 - routine care - and change q 4 weeks. Suprapubic catheter changed on 01/17/18 Left hip pain Patient reports left hip pain after being moved yesterday Xray neg -trial of NSAIDS x 2 days. Continue on Protonix. -ice left hip prn Constipation +BM - Continue on PeriColace BID - Continue on Miralax BID scheduled - monitor BMs DVT prophylaxis Eliquis Code Status: Full Discharge Planning: Difficult placement. CM assists with ongoing discharge planning.
[2018-01-18] MEDS: Nortriptyline 10 MG Capsule PO SCH (22:08)
[2018-01-19] MEDS: Sod Chloride 0.9% Inj 1,000 ML IV.SIG SCH ×2 (01:22→19:58)
[2018-01-19] MEDS: predniSONE 10 MG Tablet PO SCH (09:48)
[2018-01-19] MEDS: Calcium Acetate 667 MG Capsule PO SCH ×3 (09:48→18:09)
[2018-01-19] MEDS: Baclofen 10 MG Tablet PO SCH ×4 (09:48→22:49)
[2018-01-19] MEDS: Ascorbic Acid 500 MG Tablet PO SCH (09:48)
[2018-01-19] MEDS: Sulfamethoxazole/Trimethoprim 400/80 MG Tablet PO SCH (09:49)
[2018-01-19] MEDS: Gabapentin 300 MG Capsule PO SCH ×3 (09:49→18:09)
[2018-01-19] MEDS: Senna/Docusate Sodium 8.6/50 MG Tablet PO SCH ×2 (09:49→22:48)
[2018-01-19] MEDS: Calcium/Vitamin D 250/125 MG Tablet PO SCH (09:49)
[2018-01-19] MEDS: Insulin NovoLOG Aspart Correctional Sugar Inj SQ SCH ×4 (09:50→22:50)
[2018-01-19] MEDS: Insulin Detemir Inj 1,000 UNIT/10 ML Vial SQ SCH ×2 (09:50→22:49)
[2018-01-19] MEDS: Polyethylene Glycol 3350 17 GM Packet PO SCH ×2 (09:51→22:47)
--- NOTE | 2018-01-19 10:27 | P.PNIM ---
Subjective Interval history: in no distress. denies pain. no new complaints. Physical Exam Vital signs: Vital Signs 01/18/18 11:00 01/18/18 15:00 01/18/18 20:00 Temperature 98.8 F 98.4 F 98.0 F Pulse Rate 80 77 88 Respiratory Rate 20 20 18 Blood Pressure 120/80 110/70 121/71 Pulse Oximetry 100 100 100 01/19/18 00:00 01/19/18 01:41 01/19/18 04:00 Temperature 97.8 F 97.9 F Pulse Rate 74 81 Respiratory Rate 18 18 18 Blood Pressure 112/65 106/60 Pulse Oximetry 100 97 01/19/18 05:24 01/19/18 08:00 Temperature 98.3 F Pulse Rate 71 Respiratory Rate 18 12 Blood Pressure 122/76 Pulse Oximetry 100 Intake & Output 01/18/18 01/19/18 01/19/18 18:59 06:59 18:59 Output Total 550 / 550 1900 / 1900 Balance -550 / -550 -1900 / -1900 Weight 107 kg Output: Urine 550 / 550 1900 / 1900 Other: Date of Last Bowel Movement 01/17/18 01/17/18 # Bowel Movements 1 # Incontinent Bowel Movements 1 - Constitutional no acute distress - Routine Respiratory Exam Present: CTA bilaterally - Routine Cardiovascular Exam Present: RRR - Routine Abdominal Exam Present: soft - Routine Extremities Exam Comments: no pedal edema. - Routine Neurological Exam Present: alert, oriented X3 - Urinary Catheter Management Suprapubic Cath placed during this visit: yes Reason for continuing: Acute urinary retention Insertion date: 01/17/18 Results - Labs CBC & Chem 7: 01/17/18 06:30 01/17/18 06:30 Laboratory Results - last 24 hr 01/18/18 01/18/18 01/18/18 11:20 16:27 21:56 POC Glucose 172 H 214 H 162 H 01/19/18 01/19/18 03:49 08:25 POC Glucose 145 H 83 - Procedures none Assessment and Plan - Assessment (1) Neuromyelitis optica Code(s): G36.0 - Neuromyelitis optica [Devic] Status: Acute (2) Pulmonary embolism Code(s): I26.99 - Other pulmonary embolism without acute cor pulmonale Status : Acute (3) DM type 2 (diabetes mellitus, type 2) Code(s): E11.9 - Type 2 diabetes mellitus without complications Status: Acute - Plan Neuromyelitis optica, transverse myelitis, paraplegia New complaints unable to feel with her hands- UE sensation and strength much improved - Returned from [facility] following a one-month stay there. - Continue prednisone 30mg daily, CellCept for 6 months. - Bactrim Wednesday/Wednesday/Wednesday prophylactically. - Continue physical therapy, Occupational Therapy - Hematology and neurology following - s/p IV Rituxin infusion 01/06. Next dose 01/20 Diabetes mellitus, insulin-dependent HgA1C 7.9 (10/05/17) Blood glucose overall good - continue on Levemir 30u daily and 25 units at night. Continue on prandial NovoLog 10 units 3 times daily. - Resume patient's home medication glyburide but at lower dose - continue accucheks and ISS Hypertension, chronic essential - Continue metoprolol Anemia of chronic disease - H&H are stable and no further hematuria - Continue to monitor CBC as indicated Pulmonary embolus - restarted Eliquis-12/16 no plans for permacath anymore Neurogenic bladder Urinary retention - Suprapubic catheter in place. Appreciate urology recommendations. - Suprapubic catheter exchange and upsizing 11/14 - SC changed 12/15 - routine care - and change q 4 weeks. Suprapubic catheter changed on 01/17/18 Left hip pain Patient reports left hip pain after being moved yesterday Xray neg -trial of NSAIDS x 2 days. Continue on Protonix. -ice left hip prn Constipation +BM - Continue on PeriColace BID - Continue on Miralax BID scheduled - monitor BMs DVT prophylaxis Eliquis Code Status: Full Discharge Planning: needs placement.
[2018-01-19] MEDS: glyBURIDE 2.5 MG Tablet PO SCH ×2 (12:43→18:10)
[2018-01-19] MEDS: Nortriptyline 10 MG Capsule PO SCH (22:48)
[2018-01-20] MEDS: diazePAM 5 MG Tablet PO PRN (05:36)
[2018-01-20] MEDS: Sod Chloride 0.9% Inj 1,000 ML IV.SIG SCH ×4 (05:36→23:44)
[2018-01-20] MEDS: Insulin NovoLOG Aspart Correctional Sugar Inj SQ SCH ×4 (08:08→22:14)
[2018-01-20] MEDS: Gabapentin 300 MG Capsule PO SCH ×3 (09:10→17:47)
[2018-01-20] MEDS: Ascorbic Acid 500 MG Tablet PO SCH (09:11)
[2018-01-20] MEDS: Calcium/Vitamin D 250/125 MG Tablet PO SCH (09:11)
[2018-01-20] MEDS: Polyethylene Glycol 3350 17 GM Packet PO SCH ×2 (09:11→22:13)
[2018-01-20] MEDS: Calcium Acetate 667 MG Capsule PO SCH ×3 (09:12→17:47)
[2018-01-20] MEDS: Baclofen 10 MG Tablet PO SCH ×4 (09:12→22:13)
[2018-01-20] MEDS: Insulin Detemir Inj 1,000 UNIT/10 ML Vial SQ SCH ×2 (09:13→22:13)
[2018-01-20] MEDS: Senna/Docusate Sodium 8.6/50 MG Tablet PO SCH ×2 (09:18→22:13)
[2018-01-20] MEDS: predniSONE 10 MG Tablet PO SCH (09:18)
--- NOTE | 2018-01-20 09:53 | P.PNIM ---
Subjective Interval history: in no distress. no new complaints. d/w the RN. Physical Exam Vital signs: Vital Signs 01/19/18 12:00 01/19/18 16:00 01/19/18 20:00 Temperature 98.7 F 98.3 F 98.7 F Pulse Rate 79 72 76 Respiratory Rate 16 16 18 Blood Pressure 104/63 122/72 128/73 Pulse Oximetry 100 100 100 01/19/18 21:03 01/20/18 00:00 01/20/18 04:00 Temperature 97.7 F 98.4 F Pulse Rate 81 77 Respiratory Rate 16 16 18 Blood Pressure 139/90 125/82 Pulse Oximetry 100 97 01/20/18 05:03 01/20/18 07:49 01/20/18 08:00 Temperature 97.8 F Pulse Rate 76 Respiratory Rate 16 16 18 Blood Pressure 125/75 Pulse Oximetry 100 Intake & Output 01/19/18 01/20/18 01/20/18 18:59 06:59 18:59 Intake Total 720 / 720 1440 / 1440 Output Total 1800 / 1800 3200 / 3200 Balance -1080 / -1080 -1760 / -1760 Weight 111.6 kg Intake: Oral 720 / 720 1440 / 1440 Output: Urine 1800 / 1800 3200 / 3200 Other: Date of Last Bowel Movement 01/19/18 01/20/18 01/18/18 # Bowel Movements 1 2 - Constitutional no acute distress - Routine Respiratory Exam Present: CTA bilaterally - Routine Cardiovascular Exam Present: RRR - Routine Abdominal Exam Present: soft - Routine Extremities Exam Comments: no pedal edema. 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 - Continue prednisone 30mg daily, CellCept for 6 months. - Bactrim Wednesday/Wednesday/Wednesday prophylactically. - Continue physical therapy, Occupational Therapy - Hematology and neurology following - s/p IV Rituxin infusion 01/06. Next dose today. Diabetes mellitus, insulin-dependent HgA1C 7.9 (10/05/17) Blood glucose overall good - continue on Levemir 30u daily and 25 units at night. Continue on prandial NovoLog 10 units 3 times daily. - Resume patient's home medication glyburide but at lower dose - continue accucheks and ISS Hypertension, chronic essential - Continue metoprolol Anemia of chronic disease - H&H are stable and no further hematuria - Continue to monitor CBC as indicated Pulmonary embolus - restarted Eliquis-12/16 no plans for permacath anymore Neurogenic bladder Urinary retention - Suprapubic catheter in place. Appreciate urology recommendations. - Suprapubic catheter exchange and upsizing 11/14 - SC changed 12/15 - routine care - and change q 4 weeks. Suprapubic catheter changed on 01/17/18 Left hip pain Xray neg Constipation +BM - Continue on PeriColace BID - Continue on Miralax BID scheduled - monitor BMs DVT prophylaxis Eliquis Code Status: Full Discharge Planning: needs placement.
[2018-01-20] MEDS: glyBURIDE 2.5 MG Tablet PO SCH ×2 (10:38→17:46)
--- NOTE | 2018-01-20 10:52 | P.PNONC ---
Subjective Interval history: Afebrile Patient reports she continues to have some stiffness in her arms and hands Remains unable to move her legs or feet but still has good sensations Overall feels somewhat improved since first round of Rituxan Asking when her transfer might be back to oncology for infusion Objective Vital Signs/Intake & Output: Vital Signs 01/19/18 12:00 01/19/18 16:00 01/19/18 20:00 Temperature 98.7 F 98.3 F 98.7 F Pulse Rate 79 72 76 Respiratory Rate 16 16 18 Blood Pressure 104/63 122/72 128/73 Pulse Oximetry 100 100 100 01/19/18 21:03 01/20/18 00:00 01/20/18 04:00 Temperature 97.7 F 98.4 F Pulse Rate 81 77 Respiratory Rate 16 16 18 Blood Pressure 139/90 125/82 Pulse Oximetry 100 97 01/20/18 05:03 01/20/18 07:49 01/20/18 08:00 Temperature 97.8 F Pulse Rate 76 Respiratory Rate 16 16 18 Blood Pressure 125/75 Pulse Oximetry 100 Intake & Output 01/19/18 01/20/18 01/20/18 18:59 06:59 18:59 Intake Total 720 / 720 1440 / 1440 Output Total 1800 / 1800 3200 / 3200 Balance -1080 / -1080 -1760 / -1760 Weight 246 lb 0.574 oz Intake: Oral 720 / 720 1440 / 1440 Output: Urine 1800 / 1800 3200 / 3200 Other: Date of Last Bowel Movement 01/19/18 01/20/18 01/18/18 # Bowel Movements 1 2 Result Diagrams: 01/17/18 06:30 01/17/18 06:30 Laboratory Results: Laboratory Results - last 24 hr 01/19/18 01/19/18 01/19/18 12:33 18:06 19:52 POC Glucose 157 H 309 H 275 H 01/20/18 01/20/18 03:11 08:02 POC Glucose 84 109 Medications: Active Medications Generic Name Dose Route Start Last Admin Trade Name Freq PRN Reason Stop Dose Admin Acetaminophen 650 mg 11/21/17 00:01 01/14/18 05:31 Tylenol PO 650 mg Q4H PRN Administration TEMP>100.4 Al Hydroxide/Mg Hydroxide 30 ml 11/28/17 09:59 01/10/18 08:46 Milk Of Magnesia Liq PO 30 ml Q12H PRN Administration Mild Constipation Apixaban 5 mg 12/27/17 21:00 01/20/18 09:10 Eliquis PO 5 mg BID STAR Administration Artificial Tears 2 drop 11/21/17 00:01 12/05/17 15:31 Tears Naturale Opth Drops EACH EYE 2 drop Q4H PRN Administration DRY EYES Ascorbic Acid 250 mg 11/21/17 09:00 01/20/18 09:11 Vitamin C PO 250 mg DAILY STAR Administration Baclofen 30 mg 11/21/17 09:00 01/20/18 09:12 Lioresal PO 30 mg QID [facility] Administration Bisacodyl 10 mg 11/28/17 09:59 01/08/18 03:01 Dulcolax Supp RECTAL 10 mg DAILY PRN Administration SEVERE CONSITIPATION Calcium Acetate 667 mg 11/21/17 08:00 01/20/18 09:12 Phoslo PO 667 mg TIDAC [facility] Administration Calcium/Vitamin D 2 tab 11/21/17 09:00 01/20/18 09:11 Oscal With D 250/125 Mg PO 2 tab DAILY [facility] Administration Diazepam 5 mg 11/21/17 00:01 01/20/18 05:36 Valium PO 5 mg Q8H PRN Administration MUSCLE SPASM Docusate Sodium 100 mg 11/21/17 00:01 11/28/17 14:17 Colace PO 100 mg DAILY PRN Administration CONSTIPATION Gabapentin 300 mg 12/17/17 13:00 01/20/18 09:10 Neurontin PO 300 mg TID STAR Administration Glyburide 2.5 mg 01/06/18 08:00 01/20/18 10:38 Diabeta PO 2.5 mg BID@0800,1700 [facility] Administration Rituximab 1,000 mg/ Sodium 600 mls @ 0 mls/hr 01/06/18 12:00 01/06/18 20:13 Chloride IV.SIG 01/20/18 12:01 Infused Q14D STAR Infusion As Directed Sodium Chloride 1,000 mls @ 100 mls/hr 01/06/18 11:30 01/20/18 05:36 Ns Inj IV.SIG Not Given .Q10H STAR Insulin Aspart 10 units 01/14/18 17:00 01/20/18 09:14 Novolog Inj SQ 10 units TIDAC STAR Administration Insulin Aspart 0 unit 12/11/17 21:30 01/20/18 08:08 Novolog Insulin Correctional Sugar Inj SQ Not Given ACHS [facility] Protocol Insulin Detemir 25 unit 01/01/18 21:00 01/19/18 22:49 Levemir Inj SQ 25 unit HS STAR Administration Insulin Detemir 30 unit 01/09/18 09:20 01/20/18 09:13 Levemir Inj SQ 30 unit AC BREAKFAST STAR Administration Lactulose 30 ml 11/28/17 09:59 01/10/18 17:44 Lactulose Liq PO 30 ml DAILY PRN Administration SEVERE CONSITIPATION Metoprolol Succinate 25 mg 11/21/17 09:00 01/20/18 09:12 Toprol Xl PO 25 mg DAILY STAR Administration Mycophenolate Mofetil 500 mg 11/21/17 06:00 01/20/18 05:34 Cellcept PO 500 mg BID@0600,1800 STAR Administration Nortriptyline HCl 10 mg 11/21/17 21:00 01/19/18 22:48 Pamelor PO 10 mg HS STAR Administration Oxycodone HCl 5 mg 11/21/17 00:01 01/20/18 09:11 Roxicodone PO 5 mg Q4H PRN Administration PAIN 6-10 Pantoprazole Sodium 40 mg 11/21/17 09:00 01/20/18 09:10 Protonix PO 40 mg DAILY STAR Administration Polyethylene Glycol 17 gm 01/12/18 21:00 01/20/18 09:11 Miralax PO 17 gm BID STAR Administration Potassium Chloride 30 meq 11/21/17 09:00 01/20/18 09:11 Klor-Con 10 PO 30 meq DAILY STAR Administration Pravastatin Sodium 40 mg 11/21/17 21:00 01/19/18 22:48 Pravachol PO 40 mg HS STAR Administration Prednisone 30 mg 11/21/17 09:00 01/20/18 09:18 Deltasone PO 30 mg DAILY STAR Administration Senna/Docusate Sodium 1 tab 11/28/17 11:00 01/20/18 09:18 Jesusita-Colace PO 1 tab BID STAR Administration Sodium Chloride 2 ml 11/21/17 00:01 11/25/17 22:12 Ns Flush IV.FLUSH 2 ml UNSCH PRN Administration FLUSH AFTER USING IV ACCESS Sodium Chloride 2 ml 11/21/17 09:00 01/20/18 09:15 Ns Flush IV.FLUSH 2 ml BID STAR Administration Trimethoprim/Sulfamethoxazole 1 tab 11/22/17 09:00 01/19/18 09:49 Bactrim PO 1 tab MoWeFr@0900 STAR Administration Vitamin D 1,000 unit 11/21/17 09:00 01/20/18 09:12 Vitamin D3 PO 1,000 unit DAILY STAR Administration Objective Remarks: GENERAL: Obese middle-aged female resting in bed in no obvious distress SKIN: Warm and dry. HEAD: Normocephalic. EYES: No injection or drainage. NECK: Supple, trachea midline. CARDIOVASCULAR: Regular rate and rhythm without murmurs. RESPIRATORY: Clear anteriorly. Breathing unlabored at rest. GASTROINTESTINAL: Abdomen soft, non-tender, nondistended. Ileal conduit in place draining light yellow urine to bedside bag. EXTREMITIES: No cyanosis. Bilateral lower extremities/feet in braces. MUSCULOSKELETAL: Diminished muscle tone to bilateral lower extremities. NEUROLOGICAL: Patient unable to move bilateral lower extremities. She does have equal but decreased sensation to touch. Normal speech. Moving upper extremities independently. Assessment/Plan - Plan Ms. Friedman is a 47-year-old female with a diagnosis of neuromyelitis optica , transverse myelitis and resultant paraplegia. She has been on treatment with immunosuppression therapy with CellCept and rituximab and for flare-ups she receives plasma exchange treatments. The hematology service has been asked to see her to facilitate Rituxan infusion as this is due. 1. The patient will be transferred back to the oncology floor to facilitate second Rituxan infusion. This is the day 14 dose. She will not need any further Rituxan for another 6 months. The patient had labs done on January 17 that were normal. Okay to proceed with Rituxan infusion today. 2. Management of her neuromyelitis optica deferred to Dr. Estrella. 3. Hematology will continue to follow peripherally.
[2018-01-20] MEDS ORDERED: Acetaminophen 325 MG Tablet PO ONE (11:30)
[2018-01-20] MEDS: SODIUM CHLOR 0.9% IV.SIG SCH (12:22)
[2018-01-20] MEDS: RITUXIMAB IV.SIG SCH (12:22)
[2018-01-20] MEDS: Nortriptyline 10 MG Capsule PO SCH (22:13)
[2018-01-21] MEDS: Sod Chloride 0.9% Inj 1,000 ML IV.SIG SCH ×4 (00:31→18:08)
[2018-01-21] MEDS: Senna/Docusate Sodium 8.6/50 MG Tablet PO SCH ×2 (09:38→22:03)
[2018-01-21] MEDS: Sulfamethoxazole/Trimethoprim 400/80 MG Tablet PO SCH (09:39)
[2018-01-21] MEDS: Gabapentin 300 MG Capsule PO SCH ×3 (09:40→18:05)
[2018-01-21] MEDS: Polyethylene Glycol 3350 17 GM Packet PO SCH ×2 (09:40→22:03)
[2018-01-21] MEDS: predniSONE 10 MG Tablet PO SCH (09:40)
[2018-01-21] MEDS: glyBURIDE 2.5 MG Tablet PO SCH ×2 (09:40→18:05)
[2018-01-21] MEDS: Calcium Acetate 667 MG Capsule PO SCH ×3 (09:41→18:05)
[2018-01-21] MEDS: Baclofen 10 MG Tablet PO SCH ×4 (09:41→22:03)
[2018-01-21] MEDS: Calcium/Vitamin D 250/125 MG Tablet PO SCH (09:42)
[2018-01-21] MEDS: Ascorbic Acid 500 MG Tablet PO SCH (09:42)
[2018-01-21] MEDS: Insulin Detemir Inj 1,000 UNIT/10 ML Vial SQ SCH ×2 (09:43→22:14)
[2018-01-21] MEDS: Insulin NovoLOG Aspart Correctional Sugar Inj SQ SCH ×4 (09:43→22:13)
--- NOTE | 2018-01-21 10:14 | P.PNIM ---
Subjective Interval history: in no distress. no new complaints. Physical Exam Vital signs: Vital Signs 01/20/18 12:00 01/20/18 16:00 01/20/18 20:00 Temperature 98.1 F 98.8 F 97.0 F L Pulse Rate 77 76 101 H Respiratory Rate 18 18 20 Blood Pressure 117/65 153/86 H 144/74 H Pulse Oximetry 97 100 99 01/21/18 00:00 01/21/18 04:00 01/21/18 08:00 Temperature 98.1 F 98.1 F 98.4 F Pulse Rate 81 82 75 Respiratory Rate 20 20 16 Blood Pressure 142/88 H 143/84 H 121/64 Pulse Oximetry 100 99 99 Intake & Output 01/20/18 01/21/18 01/21/18 18:59 06:59 18:59 Intake Total 2460 / 2460 1480 / 1480 Output Total 1200 / 1200 Balance 2460 / 2460 280 / 280 Intake: IV 600 / 600 1000 / 1000 NS Inj 1,000 ML @ 100 mls/hr IV 1000 / 1000 .SIG .Q10H STAR Rx#:[id number] Rituxan Inj 1,000 MG In NS Inj 600 / 600 500 ML @ As Directed IV.SIG Q14D STAR Rx#:[id number] Oral 1860 / 1860 480 / 480 Output: Urine 1200 / 1200 Other: Date of Last Bowel Movement 01/20/18 01/21/18 01/20/18 # Bowel Movements 0 1 - Constitutional no acute distress - Routine Respiratory Exam Present: CTA bilaterally - Routine Cardiovascular Exam Present: RRR - Routine Abdominal Exam Present: soft - Urinary Catheter Management Suprapubic Cath placed during this visit: yes Reason for continuing: Chronic Urinary Retention Insertion date: 01/17/18 Results - Labs CBC & Chem 7: 01/17/18 06:30 01/17/18 06:30 Laboratory Results - last 24 hr 01/20/18 01/20/18 01/20/18 12:15 17:35 20:45 POC Glucose 112 H 297 H 275 H 01/21/18 01/21/18 03:37 07:38 POC Glucose 194 H 129 H - Procedures none Assessment and Plan - Assessment (1) Neuromyelitis optica Code(s): G36.0 - Neuromyelitis optica [Devic] Status: Acute (2) Pulmonary embolism Code(s): I26.99 - Other pulmonary embolism without acute cor pulmonale Status : Acute (3) DM type 2 (diabetes mellitus, type 2) Code(s): E11.9 - Type 2 diabetes mellitus without complications Status: Acute - Plan Neuromyelitis optica, transverse myelitis, paraplegia New complaints unable to feel with her hands- UE sensation and strength much improved - Returned from [facility] following a one-month stay there. - Continue prednisone 30mg daily, CellCept for 6 months. - Bactrim Wednesday/Wednesday/Wednesday prophylactically. - Continue physical therapy, Occupational Therapy - Hematology and neurology following - s/p IV Rituxin infusion 01/06. and 01/20- no further treatment for the next six months. Diabetes mellitus, insulin-dependent HgA1C 7.9 (10/05/17) Blood glucose overall good - continue on Levemir 30u daily and 25 units at night. Continue on prandial NovoLog 10 units 3 times daily. - Resume patient's home medication glyburide but at lower dose - continue accucheks and ISS Hypertension, chronic essential - Continue metoprolol Anemia of chronic disease - H&H are stable and no further hematuria - Continue to monitor CBC as indicated Pulmonary embolus - restarted Eliquis-12/16 no plans for permacath anymore Neurogenic bladder Urinary retention - Suprapubic catheter in place. Appreciate urology recommendations. - Suprapubic catheter exchange and upsizing 11/14 - SC changed 12/15 - routine care - and change q 4 weeks. Suprapubic catheter changed on 01/17/18 Left hip pain Xray neg Constipation +BM - Continue on PeriColace BID - Continue on Miralax BID scheduled - monitor BMs DVT prophylaxis Eliquis Code Status: Full Discharge Planning: needs placement.
[2018-01-21] MEDS: Nortriptyline 10 MG Capsule PO SCH (22:03)
[2018-01-22] MEDS: Sod Chloride 0.9% Inj 1,000 ML IV.SIG SCH ×5 (00:07→18:17)
[2018-01-22] MEDS: diazePAM 5 MG Tablet PO PRN (05:36)
[2018-01-22] MEDS: Insulin Detemir Inj 1,000 UNIT/10 ML Vial SQ SCH ×2 (09:31→21:06)
[2018-01-22] MEDS: Calcium Acetate 667 MG Capsule PO SCH ×3 (09:32→18:10)
[2018-01-22] MEDS: Senna/Docusate Sodium 8.6/50 MG Tablet PO SCH ×2 (09:32→21:06)
[2018-01-22] MEDS: Ascorbic Acid 500 MG Tablet PO SCH (09:34)
[2018-01-22] MEDS: Calcium/Vitamin D 250/125 MG Tablet PO SCH (09:34)
[2018-01-22] MEDS: Baclofen 10 MG Tablet PO SCH ×4 (09:35→21:06)
[2018-01-22] MEDS: Gabapentin 300 MG Capsule PO SCH ×3 (09:35→18:10)
[2018-01-22] MEDS: predniSONE 10 MG Tablet PO SCH (09:35)
[2018-01-22] MEDS: Polyethylene Glycol 3350 17 GM Packet PO SCH ×2 (09:36→21:07)
[2018-01-22] MEDS: glyBURIDE 2.5 MG Tablet PO SCH ×2 (09:51→18:10)
[2018-01-22] MEDS: Insulin NovoLOG Aspart Correctional Sugar Inj SQ SCH ×4 (09:56→21:06)
--- NOTE | 2018-01-22 11:09 | P.PNIM ---
Subjective Interval history: in no distress. has mild pain to the right neck. otherwise no other new complaints. Physical Exam Vital signs: Vital Signs 01/21/18 12:00 01/21/18 16:00 01/21/18 21:45 Temperature 98 F 98.3 F 98.1 F Pulse Rate 88 76 85 Respiratory Rate 18 18 16 Blood Pressure 144/75 H 139/79 130/69 Pulse Oximetry 96 99 99 01/22/18 00:07 01/22/18 00:15 01/22/18 05:25 Temperature 98.7 F 97.8 F Pulse Rate 67 82 Respiratory Rate 18 16 18 Blood Pressure 123/68 121/65 Pulse Oximetry 100 99 01/22/18 08:00 Temperature 98.2 F Pulse Rate 80 Respiratory Rate 20 Blood Pressure 147/84 H Pulse Oximetry 97 Intake & Output 01/21/18 01/22/18 01/22/18 18:59 06:59 18:59 Intake Total 2700 / 2700 Output Total 2000 / 1999 3000 / 3000 Balance -2000 / -2000 -300 / -300 Weight 108 kg Intake: Oral 2700 / 2700 Output: Urine Amount (Catheter) 1999 / 1999 3000 / 3000 Suprapubic 2000 / 2000 3000 / 3000 Other: Date of Last Bowel Movement 01/20/18 01/21/18 # Incontinent Bowel Movements 1 - Constitutional no acute distress - Routine Respiratory Exam Present: CTA bilaterally - Routine Cardiovascular Exam Present: RRR - Routine Abdominal Exam Present: soft - Urinary Catheter Management Suprapubic Cath placed during this visit: yes Reason for continuing: Chronic Urinary Retention Insertion date: 01/17/18 Results - Labs CBC & Chem 7: 01/17/18 06:30 01/17/18 06:30 Laboratory Results - last 24 hr 01/21/18 01/21/18 01/21/18 12:09 16:42 22:01 POC Glucose 195 H 250 H 284 H 01/22/18 01/22/18 03:07 07:53 POC Glucose 113 H 134 H - Procedures none Assessment and Plan - Assessment (1) Neuromyelitis optica Code(s): G36.0 - Neuromyelitis optica [Devic] Status: Acute (2) Pulmonary embolism Code(s): I26.99 - Other pulmonary embolism without acute cor pulmonale Status : Acute (3) DM type 2 (diabetes mellitus, type 2) Code(s): E11.9 - Type 2 diabetes mellitus without complications Status: Acute - Plan Neuromyelitis optica, transverse myelitis, paraplegia New complaints unable to feel with her hands- UE sensation and strength much improved - Returned from [facility] following a one-month stay there. - Continue prednisone 30mg daily, CellCept for 6 months. - Bactrim Wednesday/Wednesday/Wednesday prophylactically. - Continue physical therapy, Occupational Therapy - Hematology and neurology following - s/p IV Rituxin infusion 01/06. and 01/20- no further treatment for the next six months. -f/u with . Diabetes mellitus, insulin-dependent HgA1C 7.9 (10/05/17) - continue on Levemir 30u daily and 25 units at night. Continue on prandial NovoLog 10 units 3 times daily. - Resume patient's home medication glyburide but at lower dose - continue accucheks and ISS Hypertension, chronic essential - Continue metoprolol Anemia of chronic disease - H&H are stable and no further hematuria - Continue to monitor CBC as indicated Pulmonary embolus - restarted Eliquis-12/16 no plans for permacath anymore Neurogenic bladder Urinary retention - Suprapubic catheter in place. Appreciate urology recommendations. - Suprapubic catheter exchange and upsizing 11/14 - SC changed 12/15 - routine care - and change q 4 weeks. Suprapubic catheter changed on 01/17/18 Left hip pain Xray neg DVT prophylaxis Eliquis Code Status: Full Discharge Planning: needs placement.
[2018-01-22] MEDS: Nortriptyline 10 MG Capsule PO SCH (21:06)
[2018-01-23] MEDS: Sod Chloride 0.9% Inj 1,000 ML IV.SIG SCH ×5 (03:54→19:25)
[2018-01-23] MEDS: diazePAM 5 MG Tablet PO PRN (06:27)
[2018-01-23] MEDS: Insulin NovoLOG Aspart Correctional Sugar Inj SQ SCH ×4 (07:26→20:54)
[2018-01-23] MEDS: Polyethylene Glycol 3350 17 GM Packet PO SCH ×2 (09:05→20:49)
[2018-01-23] MEDS: Gabapentin 300 MG Capsule PO SCH ×3 (09:05→17:31)
[2018-01-23] MEDS: Ascorbic Acid 500 MG Tablet PO SCH (09:06)
[2018-01-23] MEDS: Calcium Acetate 667 MG Capsule PO SCH ×3 (09:06→17:31)
[2018-01-23] MEDS: predniSONE 10 MG Tablet PO SCH (09:07)
[2018-01-23] MEDS: Calcium/Vitamin D 250/125 MG Tablet PO SCH (09:07)
[2018-01-23] MEDS: glyBURIDE 2.5 MG Tablet PO SCH ×2 (09:07→17:31)
[2018-01-23] MEDS: Baclofen 10 MG Tablet PO SCH ×4 (09:07→20:51)
[2018-01-23] MEDS: Senna/Docusate Sodium 8.6/50 MG Tablet PO SCH ×2 (09:08→20:53)
[2018-01-23] MEDS: Insulin Detemir Inj 1,000 UNIT/10 ML Vial SQ SCH ×2 (09:08→20:54)
--- NOTE | 2018-01-23 10:30 | P.PNIM ---
Subjective Interval history: in no distress. no new complaints. Physical Exam Vital signs: Vital Signs 01/22/18 12:00 01/22/18 16:00 01/22/18 20:00 Temperature 97.7 F 98.2 F 98.8 F Pulse Rate 78 80 75 Respiratory Rate 20 20 18 Blood Pressure 115/67 131/83 135/76 Pulse Oximetry 99 99 100 01/23/18 00:00 01/23/18 04:00 01/23/18 08:00 Temperature 97.8 F 98.2 F 98.6 F Pulse Rate 74 79 78 Respiratory Rate 18 18 18 Blood Pressure 119/67 127/74 119/62 Pulse Oximetry 98 97 99 Intake & Output 01/22/18 01/23/18 01/23/18 18:59 06:59 18:59 Output Total 1200 / 1200 3000 / 3000 Balance -1200 / -1200 -3000 / -3000 Weight 107.7 kg Output: Urine 3000 / 3000 Urine Amount (Catheter) 1200 / 1200 Suprapubic 1200 / 1200 Other: Date of Last Bowel Movement 01/22/18 01/22/18 # Incontinent Bowel Movements 1 1 - Constitutional no acute distress - Routine Respiratory Exam Present: CTA bilaterally - Routine Cardiovascular Exam Present: RRR - Routine Abdominal Exam Present: soft - Urinary Catheter Management Suprapubic Cath placed during this visit: yes Reason for continuing: Chronic Urinary Retention Insertion date: 01/17/18 Results - Labs CBC & Chem 7: 01/17/18 06:30 01/17/18 06:30 Laboratory Results - last 24 hr 01/22/18 01/22/18 01/22/18 12:42 17:33 20:52 POC Glucose 175 H 276 H 231 H 01/23/18 01/23/18 03:58 07:13 POC Glucose 142 H 124 H - Procedures none Assessment and Plan - Assessment (1) Neuromyelitis optica Code(s): G36.0 - Neuromyelitis optica [Devic] Status: Acute (2) Pulmonary embolism Code(s): I26.99 - Other pulmonary embolism without acute cor pulmonale Status : Acute (3) DM type 2 (diabetes mellitus, type 2) Code(s): E11.9 - Type 2 diabetes mellitus without complications Status: Acute - Plan Neuromyelitis optica, transverse myelitis, paraplegia New complaints unable to feel with her hands- UE sensation and strength much improved - Returned [facility] following a one-month stay there. - Continue prednisone 30mg daily, CellCept for 6 months. - Bactrim Wednesday/Wednesday/Wednesday prophylactically. - Continue physical therapy, Occupational Therapy - Hematology and neurology following - s/p IV Rituxin infusion 01/06. and 01/20- no further treatment for the next six months. -f/u with . Diabetes mellitus, insulin-dependent HgA1C 7.9 (10/05/17) - continue on Levemir 30u daily and 25 units at night. Continue on prandial NovoLog 10 units 3 times daily. - Resume patient's home medication glyburide but at lower dose - continue accucheks and ISS Hypertension, chronic essential - Continue metoprolol Anemia of chronic disease - H&H are stable and no further hematuria - Continue to monitor CBC as indicated Pulmonary embolus - restarted Eliquis-12/16 no plans for permacath anymore Neurogenic bladder Urinary retention - Suprapubic catheter in place. Appreciate urology recommendations. - Suprapubic catheter exchange and upsizing 11/14 - routine care - and change q 4 weeks. Suprapubic catheter changed on Left hip pain- better. Xray neg DVT prophylaxis Eliquis Code Status: Full Discharge Planning: needs placement.
[2018-01-23] MEDS: Nortriptyline 10 MG Capsule PO SCH (20:53)
[2018-01-24] MEDS: Sod Chloride 0.9% Inj 1,000 ML IV.SIG SCH ×5 (03:45→18:31)
[2018-01-24] MEDS: diazePAM 5 MG Tablet PO PRN (06:29)
[2018-01-24] MEDS: predniSONE 10 MG Tablet PO SCH (09:38)
[2018-01-24] MEDS: Gabapentin 300 MG Capsule PO SCH ×3 (09:38→18:29)
[2018-01-24] MEDS: Ascorbic Acid 500 MG Tablet PO SCH (09:38)
[2018-01-24] MEDS: Calcium/Vitamin D 250/125 MG Tablet PO SCH (09:38)
[2018-01-24] MEDS: Baclofen 10 MG Tablet PO SCH ×4 (09:39→22:44)
[2018-01-24] MEDS: Calcium Acetate 667 MG Capsule PO SCH ×3 (09:39→18:29)
[2018-01-24] MEDS: Polyethylene Glycol 3350 17 GM Packet PO SCH ×2 (09:39→22:53)
[2018-01-24] MEDS: Senna/Docusate Sodium 8.6/50 MG Tablet PO SCH ×2 (09:39→22:58)
[2018-01-24] MEDS: Insulin NovoLOG Aspart Correctional Sugar Inj SQ SCH ×4 (09:40→22:52)
[2018-01-24] MEDS: Insulin Detemir Inj 1,000 UNIT/10 ML Vial SQ SCH ×2 (09:42→22:51)
[2018-01-24] MEDS: glyBURIDE 2.5 MG Tablet PO SCH ×2 (09:42→18:29)
[2018-01-24] MEDS: Sulfamethoxazole/Trimethoprim 400/80 MG Tablet PO SCH (09:42)
--- NOTE | 2018-01-24 10:54 | P.PNIM ---
Subjective Interval history: in no distress. no new complaints. d/w the RN and no acute issues over night. Physical Exam Vital signs: Vital Signs 01/23/18 12:00 01/23/18 16:00 01/23/18 20:00 Temperature 97.6 F 98.2 F 98.5 F Pulse Rate 76 78 84 Respiratory Rate 18 20 18 Blood Pressure 142/79 H 132/71 133/68 Pulse Oximetry 100 100 100 01/23/18 22:28 01/24/18 00:00 01/24/18 04:00 Temperature 98 F 97.9 F Pulse Rate 74 81 Respiratory Rate 18 18 18 Blood Pressure 142/75 H 137/83 Pulse Oximetry 100 98 01/24/18 08:00 Temperature 97.8 F Pulse Rate 75 Respiratory Rate 16 Blood Pressure 121/74 Pulse Oximetry 99 Intake & Output 01/23/18 01/24/18 01/24/18 18:59 06:59 18:59 Output Total 650 / 650 1800 / 1800 Balance -650 / -650 -1800 / -1800 Weight 107.3 kg Output: Urine 1800 / 1800 Urine Amount (Catheter) 650 / 650 Suprapubic 650 / 650 Other: Date of Last Bowel Movement 01/22/18 01/21/18 01/21/18 - Constitutional no acute distress (clinically no change.) - Urinary Catheter Management Suprapubic Cath placed during this visit: yes Reason for continuing: Chronic Urinary Retention Insertion date: 01/17/18 Results - Labs CBC & Chem 7: 01/17/18 06:30 01/17/18 06:30 Laboratory Results - last 24 hr 01/23/18 01/23/18 01/23/18 12:02 16:22 20:03 POC Glucose 184 H 281 H 255 H 01/24/18 01/24/18 03:32 07:36 POC Glucose 209 H 134 H - Procedures none Assessment and Plan - Assessment (1) Neuromyelitis optica Code(s): G36.0 - Neuromyelitis optica [Devic] Status: Acute (2) Pulmonary embolism Code(s): I26.99 - Other pulmonary embolism without acute cor pulmonale Status : Acute (3) DM type 2 (diabetes mellitus, type 2) Code(s): E11.9 - Type 2 diabetes mellitus without complications Status: Acute - Plan Neuromyelitis optica, transverse myelitis, paraplegia New complaints unable to feel with her hands- UE sensation and strength much improved - Returned from [facility] following a one-month stay there. - Continue prednisone 30mg daily, CellCept for 6 months. - Bactrim Wednesday/Wednesday/Wednesday prophylactically. - Continue physical therapy, Occupational Therapy - Hematology and neurology following - s/p IV Rituxin infusion on 01/06 and 01/20- no further treatment for the next six months. -f/u with . Diabetes mellitus, insulin-dependent HgA1C 7.9 (10/05/17) Blood glucose overall good - continue on Levemir 30u daily and 25 units at night. Continue on prandial NovoLog 10 units 3 times daily. - Resume patient's home medication glyburide but at lower dose - continue accucheks and ISS Hypertension, chronic essential - Continue metoprolol Anemia of chronic disease - H&H are stable and no further hematuria - Continue to monitor CBC as indicated Pulmonary embolus - restarted Eliquis-12/16 no plans for permacath anymore Neurogenic bladder Urinary retention - Suprapubic catheter in place. Appreciate urology recommendations. - Suprapubic catheter exchange and upsizing 11/14 - SC changed 12/15 - routine care - and change q 4 weeks. Suprapubic catheter changed on 01/17/18 Left hip pain Xray neg Constipation +BM - Continue on PeriColace BID - Continue on Miralax BID scheduled - monitor BMs DVT prophylaxis Eliquis Code Status: Full Discharge Planning: needs placement.
[2018-01-24] MEDS: Nortriptyline 10 MG Capsule PO SCH (22:53)
[2018-01-25] MEDS: Sod Chloride 0.9% Inj 1,000 ML IV.SIG SCH ×5 (02:08→22:12)
[2018-01-25] MEDS: diazePAM 5 MG Tablet PO PRN (06:03)
[2018-01-25] MEDS: Polyethylene Glycol 3350 17 GM Packet PO SCH ×2 (09:37→22:10)
[2018-01-25] MEDS: Baclofen 10 MG Tablet PO SCH ×4 (09:37→22:15)
[2018-01-25] MEDS: Calcium/Vitamin D 250/125 MG Tablet PO SCH (09:38)
[2018-01-25] MEDS: Ascorbic Acid 500 MG Tablet PO SCH (09:38)
[2018-01-25] MEDS: Gabapentin 300 MG Capsule PO SCH ×3 (09:38→17:35)
[2018-01-25] MEDS: Calcium Acetate 667 MG Capsule PO SCH ×3 (09:38→17:35)
[2018-01-25] MEDS: Senna/Docusate Sodium 8.6/50 MG Tablet PO SCH ×2 (09:38→22:10)
[2018-01-25] MEDS: glyBURIDE 2.5 MG Tablet PO SCH ×2 (09:38→17:35)
[2018-01-25] MEDS: Insulin NovoLOG Aspart Correctional Sugar Inj SQ SCH ×4 (09:39→22:16)
[2018-01-25] MEDS: Insulin Detemir Inj 1,000 UNIT/10 ML Vial SQ SCH ×2 (09:39→22:16)
[2018-01-25] MEDS: predniSONE 10 MG Tablet PO SCH (09:40)
--- NOTE | 2018-01-25 10:56 | P.PNIM ---
Subjective Interval history: in no acute distress. no new complaints. Physical Exam Vital signs: Vital Signs 01/24/18 12:00 01/24/18 16:00 01/24/18 20:00 Temperature 97.9 F 97.9 F 97.9 F Pulse Rate 82 88 88 Respiratory Rate 16 16 18 Blood Pressure 109/66 136/77 128/81 Pulse Oximetry 100 100 100 01/25/18 00:00 01/25/18 04:00 01/25/18 07:00 Temperature 97.6 F 97.8 F Pulse Rate 82 74 Respiratory Rate 18 18 18 Blood Pressure 124/78 123/76 Pulse Oximetry 100 100 01/25/18 08:00 Temperature 97.9 F Pulse Rate 77 Respiratory Rate 20 Blood Pressure 119/70 Pulse Oximetry 98 Intake & Output 01/24/18 01/25/18 01/25/18 18:59 06:59 18:59 Intake Total 1010 / 1010 Output Total 2400 / 2400 3000 / 3000 Balance -1390 / -1390 -3000 / -3000 Weight 107.3 kg Intake: Oral 1010 / 1010 Output: Urine 1550 / 1550 3000 / 3000 Urine Amount (Catheter) 850 / 850 Suprapubic 850 / 850 Other: Date of Last Bowel Movement 01/24/18 01/21/18 01/24/18 # Bowel Movements 1 - Constitutional no acute distress (no change clinically.) - Urinary Catheter Management Suprapubic Cath placed during this visit: yes Reason for continuing: Chronic Urinary Retention Insertion date: 01/17/18 Results - Labs CBC & Chem 7: 01/17/18 06:30 01/17/18 06:30 Laboratory Results - last 24 hr 01/24/18 01/24/18 01/24/18 11:12 16:53 20:18 POC Glucose 130 H 325 H 273 H 01/25/18 01/25/18 03:26 07:25 POC Glucose 118 H 98 - Procedures none Assessment and Plan - Assessment (1) Neuromyelitis optica Code(s): G36.0 - Neuromyelitis optica [Devic] Status: Acute (2) Pulmonary embolism Code(s): I26.99 - Other pulmonary embolism without acute cor pulmonale Status : Acute (3) DM type 2 (diabetes mellitus, type 2) Code(s): E11.9 - Type 2 diabetes mellitus without complications Status: Acute - Plan Neuromyelitis optica, transverse myelitis, paraplegia New complaints unable to feel with her hands- UE sensation and strength much improved - Returned from [facility] following a one-month stay there. - Continue prednisone 30mg daily, CellCept for 6 months. - Bactrim Wednesday/Wednesday/Wednesday prophylactically. - Continue physical therapy, Occupational Therapy - Hematology and neurology following - s/p IV Rituxin infusion on 01/06 and 01/20- no further treatment for the next six months. -f/u with . Diabetes mellitus, insulin-dependent HgA1C 7.9 (10/05/17) Blood glucose overall good - continue on Levemir 30u daily and 25 units at night. Continue on prandial NovoLog 10 units 3 times daily. - Resume patient's home medication glyburide but at lower dose - continue accucheks and ISS Hypertension, chronic essential - Continue metoprolol Anemia of chronic disease - H&H are stable and no further hematuria - Continue to monitor CBC as indicated Pulmonary embolus - restarted Eliquis-12/16 no plans for permacath anymore Neurogenic bladder Urinary retention - Suprapubic catheter in place. Appreciate urology recommendations. - Suprapubic catheter exchange and upsizing 11/14 - SC changed 12/15 - routine care - and change q 4 weeks. Suprapubic catheter changed on 01/17/18 Left hip pain Xray neg Constipation +BM - Continue on PeriColace BID - Continue on Miralax BID scheduled - monitor BMs DVT prophylaxis Eliquis Code Status: Full Discharge Planning: needs placement.
[2018-01-25] MEDS: Nortriptyline 10 MG Capsule PO SCH (22:11)
[2018-01-26] MEDS: Sod Chloride 0.9% Inj 1,000 ML IV.SIG SCH ×5 (02:40→22:23)
[2018-01-26] MEDS: diazePAM 5 MG Tablet PO PRN ×2 (06:33→17:43)
[2018-01-26] MEDS: glyBURIDE 2.5 MG Tablet PO SCH ×2 (08:00→17:56)
[2018-01-26] MEDS: Insulin Detemir Inj 1,000 UNIT/10 ML Vial SQ SCH ×2 (09:25→22:56)
[2018-01-26] MEDS: Polyethylene Glycol 3350 17 GM Packet PO SCH ×2 (09:25→22:21)
[2018-01-26] MEDS: Senna/Docusate Sodium 8.6/50 MG Tablet PO SCH ×2 (09:26→22:20)
[2018-01-26] MEDS: Ascorbic Acid 500 MG Tablet PO SCH (09:26)
[2018-01-26] MEDS: Baclofen 10 MG Tablet PO SCH ×4 (09:26→22:20)
[2018-01-26] MEDS: predniSONE 10 MG Tablet PO SCH (09:27)
[2018-01-26] MEDS: Sulfamethoxazole/Trimethoprim 400/80 MG Tablet PO SCH (09:27)
[2018-01-26] MEDS: Gabapentin 300 MG Capsule PO SCH ×3 (09:27→17:43)
[2018-01-26] MEDS: Calcium/Vitamin D 250/125 MG Tablet PO SCH (09:27)
[2018-01-26] MEDS: Calcium Acetate 667 MG Capsule PO SCH ×3 (09:28→17:43)
--- NOTE | 2018-01-26 11:51 | P.PNIM ---
Subjective Interval history: in no distress. no new complaints. Physical Exam Vital signs: Vital Signs 01/25/18 12:00 01/25/18 16:00 01/25/18 20:00 Temperature 97.7 F 97.8 F 98.0 F Pulse Rate 80 79 86 Respiratory Rate 20 20 18 Blood Pressure 115/75 113/58 L 105/65 Pulse Oximetry 100 100 100 01/26/18 00:38 01/26/18 00:42 01/26/18 03:59 Temperature 97.8 F 98.0 F Pulse Rate 87 77 Respiratory Rate 18 18 16 Blood Pressure 125/80 129/68 Pulse Oximetry 100 99 01/26/18 07:14 01/26/18 08:00 Temperature Pulse Rate Respiratory Rate 18 18 Blood Pressure Pulse Oximetry Intake & Output 01/25/18 01/26/18 01/26/18 18:59 06:59 18:59 Intake Total 1999 / 2000 Output Total 2700 / 2700 3000 / 3000 Balance -2700 / -2700 -1000 / -1000 Weight 109.7 kg Intake: Oral 1999 Output: Urine 2700 / 2700 Urine Amount (Catheter) 3000 / 3000 Suprapubic 3000 / 3000 Other: Date of Last Bowel Movement 01/24/18 01/25/18 01/26/18 - Constitutional no acute distress (no change clinically.) - Urinary Catheter Management Suprapubic Cath placed during this visit: yes Reason for continuing: Chronic Urinary Retention Insertion date: 01/17/18 Results - Labs CBC & Chem 7: 01/17/18 06:30 01/17/18 06:30 Laboratory Results - last 24 hr 01/25/18 01/25/18 01/26/18 16:20 20:05 04:02 POC Glucose 265 H 356 H 192 H 01/26/18 09:23 POC Glucose 103 - Procedures none Assessment and Plan - Assessment (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 - Continue prednisone 30mg daily, CellCept for 6 months. - Bactrim Wednesday/Wednesday/Wednesday prophylactically. - Continue physical therapy, Occupational Therapy - evaluated by Hematology and neurology . - s/p IV Rituxin infusion on 01/06 and 01/20- no further treatment for the next six months. -f/u with . Diabetes mellitus, insulin-dependent HgA1C 7.9 (10/05/17) Blood glucose overall good - continue on Levemir 30u daily and 25 units at night. Continue on prandial NovoLog 10 units 3 times daily. - Resume patient's home medication glyburide but at lower dose - continue accucheks and ISS Hypertension, chronic essential - Continue metoprolol Anemia of chronic disease - H&H are stable and no further hematuria - Continue to monitor CBC as indicated Pulmonary embolus - restarted Eliquis-12/16 no plans for permacath anymore Neurogenic bladder Urinary retention - Suprapubic catheter in place. Appreciate urology recommendations. - Suprapubic catheter exchange and upsizing 11/14 - SC changed 12/15 - routine care - and change q 4 weeks. Suprapubic catheter changed on 01/17/18 Left hip pain Xray neg Constipation +BM - Continue on PeriColace BID - Continue on Miralax BID scheduled - monitor BMs DVT prophylaxis Eliquis Code Status: Full Discharge Planning: needs placement.
[2018-01-26] MEDS: Insulin NovoLOG Aspart Correctional Sugar Inj SQ SCH ×4 (13:47→22:57)
[2018-01-26] MEDS: Nortriptyline 10 MG Capsule PO SCH (22:20)
[2018-01-26] MEDS: diphenhydrAMINE HCl 12.5 MG/5 ML Elixir UDC PO PRN (22:21)
[2018-01-27] MEDS: Sod Chloride 0.9% Inj 1,000 ML IV.SIG SCH ×4 (03:24→20:00)
[2018-01-27] MEDS: glyBURIDE 2.5 MG Tablet PO SCH ×2 (09:59→19:14)
[2018-01-27] MEDS: Calcium Acetate 667 MG Capsule PO SCH ×3 (10:00→19:15)
[2018-01-27] MEDS: predniSONE 10 MG Tablet PO SCH (10:00)
[2018-01-27] MEDS: Baclofen 10 MG Tablet PO SCH ×4 (10:00→22:22)
[2018-01-27] MEDS: Calcium/Vitamin D 250/125 MG Tablet PO SCH (10:00)
[2018-01-27] MEDS: Ascorbic Acid 500 MG Tablet PO SCH (10:01)
[2018-01-27] MEDS: Senna/Docusate Sodium 8.6/50 MG Tablet PO SCH ×2 (10:01→22:22)
[2018-01-27] MEDS: Insulin Detemir Inj 1,000 UNIT/10 ML Vial SQ SCH ×2 (10:03→22:23)
[2018-01-27] MEDS: Polyethylene Glycol 3350 17 GM Packet PO SCH ×2 (10:04→22:23)
[2018-01-27] MEDS: Insulin NovoLOG Aspart Correctional Sugar Inj SQ SCH ×4 (10:04→22:24)
[2018-01-27] MEDS: Gabapentin 300 MG Capsule PO SCH ×3 (10:04→19:16)
--- NOTE | 2018-01-27 11:41 | P.PNIM ---
Subjective Interval history: in no distress. no new complaints. Physical Exam Vital signs: Vital Signs 01/26/18 12:00 01/26/18 16:00 01/26/18 20:00 Temperature 97.8 F 97.6 F 98.2 F Pulse Rate 66 87 79 Respiratory Rate 14 16 18 Blood Pressure 130/72 110/74 130/78 Pulse Oximetry 97 99 100 01/27/18 00:00 01/27/18 04:00 01/27/18 06:30 Temperature 98.1 F 98.2 F Pulse Rate 18 L 79 Respiratory Rate 18 16 20 Blood Pressure 139/82 141/67 H Pulse Oximetry 99 99 01/27/18 08:00 Temperature 98.3 F Pulse Rate 90 Respiratory Rate 20 Blood Pressure 125/75 Pulse Oximetry 97 Intake & Output 01/26/18 01/27/18 01/27/18 18:59 06:59 18:59 Intake Total 2475 / 2475 Output Total 4202 / 4202 1900 / 1900 Balance -1727 / -1727 -1900 / -1900 Weight 110 kg Intake: Oral 1999 / 1999 Oral Supplement 475 / 475 Output: Urine 1200 / 1200 1200 / 1200 Stool 2 / 2 Urine Amount (Catheter) 3000 / 3000 700 / 700 Suprapubic 3000 / 3000 700 / 700 Other: Date of Last Bowel Movement 01/26/18 01/26/18 # Bowel Movements 1 # Incontinent Bowel Movements 1 - Constitutional no acute distress (no change clinically.) - Urinary Catheter Management Suprapubic Cath placed during this visit: yes Reason for continuing: Chronic Urinary Retention Insertion date: 01/17/18 Results - Labs CBC & Chem 7: 01/17/18 06:30 01/17/18 06:30 Laboratory Results - last 24 hr 01/26/18 01/26/18 01/26/18 12:52 17:25 22:19 POC Glucose 229 H 394 H 195 H 01/27/18 01/27/18 04:02 10:03 POC Glucose 174 H 189 H - Procedures none Assessment and Plan - Assessment (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 - Continue prednisone 30mg daily, CellCept for 6 months. - Bactrim Wednesday/Wednesday/Wednesday prophylactically. - Continue physical therapy, Occupational Therapy - evaluated by Hematology and neurology . - s/p IV Rituxin infusion on 01/06 and 01/20- no further treatment for the next six months. -f/u with . Diabetes mellitus, insulin-dependent HgA1C 7.9 (10/05/17) Blood glucose overall good - continue on Levemir 30u daily and 25 units at night. Continue on prandial NovoLog 10 units 3 times daily. - Resume patient's home medication glyburide but at lower dose - continue accucheks and ISS Hypertension, chronic essential - Continue metoprolol Anemia of chronic disease - H&H are stable and no further hematuria - Continue to monitor CBC as indicated Pulmonary embolus - restarted Eliquis-12/16 no plans for permacath anymore Neurogenic bladder Urinary retention - Suprapubic catheter in place. Appreciate urology recommendations. - Suprapubic catheter exchange and upsizing 11/14 - SC changed 12/15 - routine care - and change q 4 weeks. Suprapubic catheter changed on 01/17/18 Left hip pain Xray neg Constipation +BM - Continue on PeriColace BID - Continue on Miralax BID scheduled - monitor BMs DVT prophylaxis Eliquis Code Status: Full Discharge Planning: needs placement.
[2018-01-27] MEDS: diazePAM 5 MG Tablet PO PRN (19:20)
[2018-01-27] MEDS: Nortriptyline 10 MG Capsule PO SCH (22:22)
[2018-01-28] MEDS: Sod Chloride 0.9% Inj 1,000 ML IV.SIG SCH ×5 (00:20→19:52)
[2018-01-28] MEDS: Insulin Detemir Inj 1,000 UNIT/10 ML Vial SQ SCH ×2 (09:17→21:30)
[2018-01-28] MEDS: Senna/Docusate Sodium 8.6/50 MG Tablet PO SCH ×2 (09:17→21:46)
[2018-01-28] MEDS: Ascorbic Acid 500 MG Tablet PO SCH (09:18)
[2018-01-28] MEDS: Sulfamethoxazole/Trimethoprim 400/80 MG Tablet PO SCH (09:18)
[2018-01-28] MEDS: Gabapentin 300 MG Capsule PO SCH ×3 (09:18→18:39)
[2018-01-28] MEDS: Calcium Acetate 667 MG Capsule PO SCH ×3 (09:18→18:39)
[2018-01-28] MEDS: Polyethylene Glycol 3350 17 GM Packet PO SCH ×2 (09:18→21:47)
[2018-01-28] MEDS: Baclofen 10 MG Tablet PO SCH ×4 (09:19→21:46)
[2018-01-28] MEDS: predniSONE 10 MG Tablet PO SCH (09:19)
[2018-01-28] MEDS: Calcium/Vitamin D 250/125 MG Tablet PO SCH (09:19)
[2018-01-28] MEDS: glyBURIDE 2.5 MG Tablet PO SCH ×2 (09:21→18:40)
[2018-01-28] MEDS: Insulin NovoLOG Aspart Correctional Sugar Inj SQ SCH ×4 (09:21→21:30)
--- NOTE | 2018-01-28 12:35 | P.PNIM ---
Subjective Interval history: in no distress. no new complaints and no change. Physical Exam Vital signs: Vital Signs 01/27/18 16:00 01/27/18 20:00 01/28/18 00:00 Temperature 98.4 F 97.9 F 98.2 F Pulse Rate 84 95 H 95 H Respiratory Rate 20 18 18 Blood Pressure 147/76 H 133/81 135/88 Pulse Oximetry 100 100 100 01/28/18 04:00 01/28/18 07:08 01/28/18 08:00 Temperature 98.4 F 98 F Pulse Rate 87 88 Respiratory Rate 16 18 14 Blood Pressure 137/66 131/79 Pulse Oximetry 97 98 Intake & Output 01/27/18 01/28/18 01/28/18 18:59 06:59 18:59 Intake Total 360 / 360 Output Total 3500 / 3500 2300 / 2300 Balance -3500 / -3500 -1940 / -1940 Weight 70 kg 70 kg Intake: Oral 360 / 360 Output: Urine 3500 / 3500 2300 / 2300 Other: Date of Last Bowel Movement 01/26/18 01/27/18 01/27/18 # Bowel Movements 3 # Incontinent Bowel Movements 1 - Constitutional no acute distress (clinically no change.) - Urinary Catheter Management Suprapubic Cath placed during this visit: yes Reason for continuing: Chronic Urinary Retention Insertion date: 01/17/18 Results - Labs CBC & Chem 7: 01/17/18 06:30 01/17/18 06:30 Laboratory Results - last 24 hr 01/27/18 01/27/18 01/27/18 13:42 19:13 21:45 POC Glucose 139 H 330 H 193 H 01/28/18 01/28/18 04:05 07:45 POC Glucose 183 H 256 H - Procedures none Assessment and Plan - Assessment (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 - Continue prednisone 30mg daily, CellCept for 6 months. - Bactrim Wednesday/Wednesday/Wednesday prophylactically. - Continue physical therapy, Occupational Therapy - evaluated by Hematology and neurology . - s/p IV Rituxin infusion on 01/06 and 01/20- no further treatment for the next six months. -f/u with . Diabetes mellitus, insulin-dependent HgA1C 7.9 (10/05/17) Blood glucose overall good - continue on Levemir 30u daily and 25 units at night. Continue on prandial NovoLog 10 units 3 times daily. - Resume patient's home medication glyburide but at lower dose - continue accucheks and ISS Hypertension, chronic essential - Continue metoprolol Anemia of chronic disease - H&H are stable and no further hematuria - Continue to monitor CBC as indicated Pulmonary embolus - restarted Eliquis- Neurogenic bladder Urinary retention - Suprapubic catheter in place. Appreciate urology recommendations. - Suprapubic catheter exchange and upsizing 11/14 - SC changed 12/15 - routine care - and change q 4 weeks. Suprapubic catheter changed on 01/17/18 Left hip pain Xray neg Constipation +BM - Continue on PeriColace BID - Continue on Miralax BID scheduled - monitor BMs DVT prophylaxis Eliquis Code Status: Full Discharge Planning: needs placement.
[2018-01-28] MEDS: Nortriptyline 10 MG Capsule PO SCH (21:46)
[2018-01-29] MEDS: Sod Chloride 0.9% Inj 1,000 ML IV.SIG SCH ×5 (06:25→22:42)
[2018-01-29] MEDS: Gabapentin 300 MG Capsule PO SCH ×3 (09:52→18:52)
[2018-01-29] MEDS: Calcium Acetate 667 MG Capsule PO SCH ×3 (09:52→18:52)
[2018-01-29] MEDS: Ascorbic Acid 500 MG Tablet PO SCH (09:52)
[2018-01-29] MEDS: predniSONE 10 MG Tablet PO SCH (09:52)
[2018-01-29] MEDS: Baclofen 10 MG Tablet PO SCH ×4 (09:52→21:32)
[2018-01-29] MEDS: Polyethylene Glycol 3350 17 GM Packet PO SCH ×2 (09:53→22:43)
[2018-01-29] MEDS: Senna/Docusate Sodium 8.6/50 MG Tablet PO SCH ×2 (09:53→22:44)
[2018-01-29] MEDS: Calcium/Vitamin D 250/125 MG Tablet PO SCH (09:56)
[2018-01-29] MEDS: Insulin NovoLOG Aspart Correctional Sugar Inj SQ SCH ×4 (09:58→21:32)
--- NOTE | 2018-01-29 10:32 | P.PNIM ---
Subjective Interval history: in no acute distress. no new complaints. d/w the RN at the bedside. Physical Exam Vital signs: Vital Signs 01/28/18 12:00 01/28/18 20:00 01/28/18 23:53 Temperature 97.9 F 98.3 F 97.7 F Pulse Rate 95 H 87 81 Respiratory Rate 14 22 20 Blood Pressure 109/66 141/74 H 144/81 H Pulse Oximetry 100 100 01/29/18 04:00 01/29/18 08:00 Temperature 97.6 F 97.7 F Pulse Rate 70 80 Respiratory Rate 18 18 Blood Pressure 126/78 148/91 H Pulse Oximetry 99 95 Intake & Output 01/28/18 01/29/18 01/29/18 18:59 06:59 18:59 Intake Total 1480 / 1480 Output Total 5000 / 5000 Balance 1480 / 1480 -5000 / -5000 Weight 70 kg 177.8 kg Intake: Oral 1480 / 1480 Output: Urine 5000 / 5000 Other: Date of Last Bowel Movement 01/28/18 01/28/18 # Bowel Movements 1 1 - Constitutional no acute distress - Routine Respiratory Exam Present: CTA bilaterally - Routine Cardiovascular Exam Present: RRR - Routine Abdominal Exam Present: soft - Urinary Catheter Management Suprapubic Cath placed during this visit: yes Reason for continuing: Chronic Urinary Retention Insertion date: 01/17/18 Results - Labs CBC & Chem 7: 01/17/18 06:30 01/17/18 06:30 Laboratory Results - last 24 hr 01/28/18 01/28/18 01/28/18 12:35 17:37 21:18 POC Glucose 180 H 235 H 184 H 01/29/18 01/29/18 03:55 09:47 POC Glucose 139 H 112 H - Procedures none Assessment and Plan - Assessment (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 - Continue prednisone 30mg daily, CellCept for 6 months. - Bactrim Wednesday/Wednesday/Wednesday prophylactically. - Continue physical therapy, Occupational Therapy - evaluated by Hematology and neurology . - s/p IV Rituxin infusion on 01/06 and 01/20- no further treatment for the next six months. -f/u with . Diabetes mellitus, insulin-dependent HgA1C 7.9 (10/05/17) Blood glucose overall good - continue on Levemir 30u daily and 25 units at night. Continue on prandial NovoLog 10 units 3 times daily. - Resume patient's home medication glyburide but at lower dose - continue accucheks and ISS Hypertension, chronic essential - Continue metoprolol Anemia of chronic disease - H&H are stable and no further hematuria - Continue to monitor CBC as indicated Pulmonary embolus - restarted Eliquis- Neurogenic bladder Urinary retention - Suprapubic catheter in place. Appreciate urology recommendations. - Suprapubic catheter exchange and upsizing 11/14 - SC changed 12/15 - routine care - and change q 4 weeks. Suprapubic catheter changed on 01/17/18 Left hip pain Xray neg Constipation +BM - Continue on PeriColace BID - Continue on Miralax BID scheduled - monitor BMs DVT prophylaxis Eliquis Code Status: Full Discharge Planning: needs placement.
[2018-01-29] MEDS: glyBURIDE 2.5 MG Tablet PO SCH ×2 (11:46→18:52)
[2018-01-29] MEDS: Insulin Detemir Inj 1,000 UNIT/10 ML Vial SQ SCH ×2 (11:46→21:32)
[2018-01-29] MEDS: Nortriptyline 10 MG Capsule PO SCH (22:44)
[2018-01-30] MEDS: Sod Chloride 0.9% Inj 1,000 ML IV.SIG SCH ×5 (03:11→23:45)
[2018-01-30] MEDS: diazePAM 5 MG Tablet PO PRN ×2 (05:40→23:46)
[2018-01-30] MEDS: Baclofen 10 MG Tablet PO SCH ×4 (10:10→23:43)
[2018-01-30] MEDS: predniSONE 10 MG Tablet PO SCH (10:11)
[2018-01-30] MEDS: Ascorbic Acid 500 MG Tablet PO SCH (10:11)
[2018-01-30] MEDS: Calcium/Vitamin D 250/125 MG Tablet PO SCH (10:11)
[2018-01-30] MEDS: Gabapentin 300 MG Capsule PO SCH ×3 (10:11→17:36)
[2018-01-30] MEDS: Calcium Acetate 667 MG Capsule PO SCH ×3 (10:11→17:36)
[2018-01-30] MEDS: Insulin Detemir Inj 1,000 UNIT/10 ML Vial SQ SCH ×2 (10:12→23:41)
[2018-01-30] MEDS: Insulin NovoLOG Aspart Correctional Sugar Inj SQ SCH ×4 (10:13→23:41)
[2018-01-30] MEDS: Polyethylene Glycol 3350 17 GM Packet PO SCH ×2 (10:13→23:44)
[2018-01-30] MEDS: Senna/Docusate Sodium 8.6/50 MG Tablet PO SCH ×2 (10:13→23:42)
--- NOTE | 2018-01-30 11:19 | P.PNIM ---
Subjective Interval history: in no acute distress. no new complaints. Physical Exam Vital signs: Vital Signs 01/29/18 12:00 01/29/18 16:00 01/29/18 22:00 Temperature 98.0 F 98.3 F 98.1 F Pulse Rate 79 91 H 93 H Respiratory Rate 18 18 17 Blood Pressure 167/84 H 141/75 H 139/82 Pulse Oximetry 100 100 100 01/29/18 22:04 01/30/18 00:30 01/30/18 05:15 Temperature 98.1 F 98.8 F Pulse Rate 80 70 Respiratory Rate 18 18 16 Blood Pressure 123/80 128/72 Pulse Oximetry 100 100 Intake & Output 01/29/18 01/30/18 01/30/18 18:59 06:59 18:59 Intake Total 600 / 600 3200 / 3200 Output Total 2675 / 2675 3300 / 3300 Balance -2075 / -2075 -100 / -100 Weight 178 kg Intake: Oral 600 / 600 3200 / 3200 Output: Urine 2675 / 2675 2500 / 2500 Urine Amount (Catheter) 800 / 800 Suprapubic 800 / 800 Other: Date of Last Bowel Movement 01/28/18 # Bowel Movements 1 1 # Incontinent Bowel Movements 1 - Constitutional no acute distress - Routine Respiratory Exam Present: CTA bilaterally - Routine Cardiovascular Exam Present: RRR - Routine Abdominal Exam Present: soft - Urinary Catheter Management Suprapubic Cath placed during this visit: yes Reason for continuing: Chronic Urinary Retention Insertion date: 01/17/18 Results - Labs CBC & Chem 7: 01/17/18 06:30 01/17/18 06:30 Laboratory Results - last 24 hr 01/29/18 01/29/18 01/29/18 11:48 17:25 20:05 POC Glucose 247 H 384 H 286 H 01/30/18 07:48 POC Glucose 152 H - Procedures none Assessment and Plan - Assessment (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 - Continue prednisone 30mg daily, CellCept for 6 months. - Bactrim Wednesday/Wednesday/Wednesday prophylactically. - Continue physical therapy, Occupational Therapy - evaluated by Hematology and neurology . - s/p IV Rituxin infusion on 01/06 and 01/20- no further treatment for the next six months. -f/u with . Diabetes mellitus, insulin-dependent HgA1C 7.9 (10/05/17) Blood glucose overall good - continue on Levemir 30u daily and 25 units at night. Continue on prandial NovoLog 10 units 3 times daily. - Resume patient's home medication glyburide but at lower dose - continue accucheks and ISS Hypertension, chronic essential - Continue metoprolol Anemia of chronic disease - H&H are stable and no further hematuria - Continue to monitor CBC as indicated Pulmonary embolus - restarted Eliquis- Neurogenic bladder Urinary retention - Suprapubic catheter in place. Appreciate urology recommendations. - Suprapubic catheter exchange and upsizing 11/14 - SC changed 12/15 - routine care - and change q 4 weeks. Suprapubic catheter changed on 01/17/18 Left hip pain- better. Xray neg Constipation +BM - Continue on PeriColace BID - Continue on Miralax BID scheduled - monitor BMs DVT prophylaxis Eliquis Code Status: Full Discharge Planning: needs placement.
[2018-01-30] MEDS: glyBURIDE 2.5 MG Tablet PO SCH ×2 (11:28→17:36)
[2018-01-30] MEDS: Nortriptyline 10 MG Capsule PO SCH (23:43)
[2018-01-31] MEDS: Sod Chloride 0.9% Inj 1,000 ML IV.SIG SCH ×5 (06:18→22:35)
[2018-01-31] MEDS: Insulin Detemir Inj 1,000 UNIT/10 ML Vial SQ SCH ×2 (06:27→20:08)
[2018-01-31] MEDS: predniSONE 10 MG Tablet PO SCH (09:24)
[2018-01-31] MEDS: Baclofen 10 MG Tablet PO SCH ×4 (09:25→20:10)
[2018-01-31] MEDS: Gabapentin 300 MG Capsule PO SCH ×3 (09:28→18:34)
[2018-01-31] MEDS: Ascorbic Acid 500 MG Tablet PO SCH (09:28)
[2018-01-31] MEDS: Senna/Docusate Sodium 8.6/50 MG Tablet PO SCH ×2 (09:28→20:06)
[2018-01-31] MEDS: Calcium/Vitamin D 250/125 MG Tablet PO SCH (09:31)
[2018-01-31] MEDS: Sulfamethoxazole/Trimethoprim 400/80 MG Tablet PO SCH (09:32)
[2018-01-31] MEDS: Insulin NovoLOG Aspart Correctional Sugar Inj SQ SCH ×4 (09:32→20:07)
[2018-01-31] MEDS: Polyethylene Glycol 3350 17 GM Packet PO SCH ×2 (09:34→20:06)
[2018-01-31] MEDS: Calcium Acetate 667 MG Capsule PO SCH ×3 (09:36→18:33)
[2018-01-31] MEDS: glyBURIDE 2.5 MG Tablet PO SCH ×2 (09:36→18:33)
--- NOTE | 2018-01-31 11:40 | P.PNIM ---
Subjective Interval history: in no distress. clinically no change. Physical Exam Vital signs: Vital Signs 01/30/18 12:00 01/30/18 16:00 01/30/18 20:00 Temperature 97.4 F L 98.7 F 98.0 F Pulse Rate 88 84 87 Respiratory Rate 16 14 18 Blood Pressure 118/63 124/85 130/75 Pulse Oximetry 100 100 100 01/31/18 00:00 01/31/18 04:00 01/31/18 08:00 Temperature 98.2 F 98.3 F 98 F Pulse Rate 93 H 80 85 Respiratory Rate 18 18 20 Blood Pressure 150/78 H 123/71 151/85 H Pulse Oximetry 97 98 98 Intake & Output 01/30/18 01/31/18 01/31/18 18:59 06:59 18:59 Output Total 2124 Balance -2124 -2124 -1999 Weight 178 kg Output: Urine 1175 / 1175 Urine Amount (Catheter) 950 / 950 1999 Suprapubic 950 / 950 1999 - Constitutional no acute distress (no change clinically.) - Urinary Catheter Management Suprapubic Cath placed during this visit: yes Reason for continuing: Chronic Urinary Retention Insertion date: 01/17/18 Results - Labs CBC & Chem 7: 01/17/18 06:30 01/17/18 06:30 Laboratory Results - last 24 hr 01/30/18 01/30/18 01/30/18 12:09 17:06 23:36 POC Glucose 130 H 250 H 209 H 01/31/18 07:54 POC Glucose 129 H - Procedures none Assessment and Plan - Assessment (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 following a one-month stay there. - Continue prednisone 30mg daily, CellCept for 6 months. - Bactrim Wednesday/Wednesday/Wednesday prophylactically. - Continue physical therapy, Occupational Therapy - evaluated by Hematology and neurology . - s/p IV Rituxin infusion on 01/06 and 01/20- no further treatment for the next six months. -f/u with . Diabetes mellitus, insulin-dependent HgA1C 7.9 (10/05/17) Blood glucose overall good - continue on Levemir 30u daily and 25 units at night. Continue on prandial NovoLog 10 units 3 times daily. - Resume patient's home medication glyburide but at lower dose - continue accucheks and ISS Hypertension, chronic essential - Continue metoprolol Anemia of chronic disease - H&H are stable and no further hematuria - Continue to monitor CBC as indicated Pulmonary embolus - restarted Eliquis- Neurogenic bladder Urinary retention - Suprapubic catheter in place. Appreciate urology recommendations. - Suprapubic catheter exchange and upsizing 11/14 - SC changed 12/15 - routine care - and change q 4 weeks. Suprapubic catheter changed on 01/17/18 Left hip pain- better. Xray neg Constipation +BM - Continue on PeriColace BID - Continue on Miralax BID scheduled - monitor BMs DVT prophylaxis Eliquis Code Status: Full Discharge Planning: needs placement.
[2018-01-31] MEDS: Nortriptyline 10 MG Capsule PO SCH (20:06)
[2018-02-01] MEDS: Sod Chloride 0.9% Inj 1,000 ML IV.SIG SCH ×4 (04:29→18:10)
[2018-02-01 07:00] LABS: Baso % (Auto) 0.2 % (0.0-2.0); Eos % (Auto) 0.4 % (0.0-4.0); Hematocrit 35.7 % (35.0-46.0); Hemoglobin 11.4 gm/dL (11.6-15.3); Lymph # (Auto) 2.6 th/mm3 (1.0-4.8); Lymph % (Auto) 37.1 % (9.0-44.0); Mean Corpuscular Hemoglobin 26.5 pg (27.0-34.0); Mean Corpuscular Volume 82.6 fL (80.0-100.0); Mean Platelet Volume 9.2 fL (7.0-11.0); Mono # (Auto) 0.7 th/mm3 (0.0-0.9); Mono % (Auto) 9.4 % (0.0-8.0); Neut # (Auto) 3.8 th/mm3 (1.8-7.7); Neut % (Auto) 52.9 % (16.0-70.0); Platelet Count 196 th/mm3 (150-450); Red Blood Count 4.31 mil/mm3 (4.00-5.30); Red Cell Distribution Width 16.3 % (11.6-17.2); White Blood Count 7.1 th/mm3 (4.0-11.0)
[2018-02-01] MEDS: Insulin Detemir Inj 1,000 UNIT/10 ML Vial SQ SCH ×2 (07:38→22:17)
[2018-02-01 07:42] LABS: Anion Gap 8 meq/L (5-15); Blood Urea Nitrogen 12 mg/dL (7-18); Calcium 8.9 mg/dL (8.5-10.1); Carbon Dioxide 30.3 meq/L (21.0-32.0); Chloride 101 meq/L (98-107); Glomerular Filtration Rate Greater Than 89 mL/min (>89); Glucose,Random 172 mg/dL (74-106); Potassium 3.8 meq/L (3.5-5.1); Sodium 139 meq/L (136-145)
--- NOTE | 2018-02-01 07:58 | P.PN ---
Subjective Interval history: Follow-up of patient with neuromyelitis optica, transverse myelitis. Patient seen and examined. Patient reports an uneventful night. She denies any acute medical complaints. She denies any fever chills. Denies any chest pain or shortness of breath. Physical Exam Vital signs: Vital Signs 01/31/18 08:00 01/31/18 12:00 01/31/18 16:00 Temperature 98 F 98.2 F 98.1 F Pulse Rate 85 89 86 Respiratory Rate 20 20 20 Blood Pressure 151/85 H 136/78 167/88 H Pulse Oximetry 98 99 99 01/31/18 19:59 01/31/18 20:00 02/01/18 00:00 Temperature 98.3 F 97.6 F Pulse Rate 91 H 83 Respiratory Rate 18 18 18 Blood Pressure 135/83 117/76 Pulse Oximetry 100 100 02/01/18 04:00 02/01/18 06:30 Temperature 97.6 F Pulse Rate 80 Respiratory Rate 18 18 Blood Pressure 137/80 Pulse Oximetry 99 Intake & Output 01/31/18 02/01/18 02/01/18 18:59 06:59 18:59 Intake Total 720 / 720 Output Total 1501 / 1501 3500 / 3500 Balance -781 / -781 -3500 / -3500 Weight 70 kg Intake: Oral 720 / 720 Output: Urine 1500 / 1500 3500 / 3500 Stool Other: Date of Last Bowel Movement 01/31/18 01/31/18 # Incontinent Bowel Movements 1 Narrative: GENERAL: WDWN female, INAD. Awake and alert. Sitting up in bed eating breakfast. Appears comfortable. SKIN: Warm and dry. No generalized rash. HEENT: Atraumatic. Normocephalic. Pupils equal and round. No scleral icterus. No injection or drainage. No nasal bleeding or discharge. Mucous membranes pink and moist. NECK: Trachea midline. CARDIOVASCULAR: Regular rate and rhythm. RESPIRATORY: No accessory muscle use. Clear to auscultation anteriorly. Breath sounds equal bilaterally. GASTROINTESTINAL: Abdomen soft, non-tender, nondistended. +BS. : suprapubic catheter in place MUSCULOSKELETAL: Extremities without clubbing, cyanosis. +Trace BLE edema. NEUROLOGICAL: Awake and alert. No obvious cranial nerve deficits. Decreased motor function bilateral UEs. BLE paresis. Normal speech. PSYCHIATRIC: Appropriate mood and affect; insight and judgment normal. - Urinary Catheter Management Suprapubic Cath placed during this visit: yes Reason for continuing: Chronic Urinary Retention Insertion date: 01/17/18 Results - Labs CBC & Chem 7: 02/01/18 06:15 02/01/18 06:15 Laboratory Results - last 24 hr 01/31/18 01/31/18 01/31/18 11:35 18:11 19:58 WBC RBC Hgb Hct MCV MCH MCHC RDW Plt Count MPV Neut % (Auto) Lymph % (Auto) [place] % (Auto) Eos % (Auto) Baso % (Auto) Neut # (Auto) Lymph # (Auto) [place] # (Auto) Eos # (Auto) Baso # (Auto) WBC Differential Differential Comment Sodium Potassium Chloride Carbon Dioxide Anion Gap BUN Creatinine Estimated GFR POC Glucose 135 H 324 H 337 H Random Glucose Calcium 02/01/18 02/01/18 02/01/18 05:44 06:15 06:15 WBC 7.1 RBC 4.31 Hgb 11.4 L Hct 35.7 MCV 82.6 MCH 26.5 L MCHC 32.0 RDW 16.3 Plt Count 196 MPV 9.2 Neut % (Auto) 52.9 Lymph % (Auto) 37.1 [place] % (Auto) 9.4 H Eos % (Auto) 0.4 Baso % (Auto) 0.2 Neut # (Auto) 3.8 Lymph # (Auto) 2.6 [place] # (Auto) 0.7 Eos # (Auto) 0.0 Baso # (Auto) 0.0 WBC Differential . Differential Comment Auto diff final Sodium 139 Potassium 3.8 Chloride 101 Carbon Dioxide 30.3 Anion Gap 8 BUN 12 Creatinine 0.61 Estimated GFR Greater than 89 POC Glucose 164 H Random Glucose 172 H Calcium 8.9 - Procedures none Assessment and Plan - Assessment (1) Neuromyelitis optica Code(s): G36.0 - Neuromyelitis optica [Devic] Status: Acute (2) Pulmonary embolism Code(s): I26.99 - Other pulmonary embolism without acute cor pulmonale Status : Acute (3) DM type 2 (diabetes mellitus, type 2) Code(s): E11.9 - Type 2 diabetes mellitus without complications Status: Acute - Plan 47-year-old female with a history of diabetes, 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 Neuromyelitis optica, transverse myelitis, paraplegia New complaints unable to feel with her hands- UE sensation and strength much improved - Returned from [facility] following a one-month stay there. - Continue prednisone 30mg daily, CellCept for 6 months. - Bactrim Wednesday/Wednesday/Wednesday prophylactically. - Continue physical therapy, Occupational Therapy - Hematology and neurology following - s/p IV Rituxin infusion 01/06 and 01/20 - no further treatment x 6 mos. F/U with Dr. Estrella. Diabetes mellitus, insulin-dependent HgA1C 7.9 (10/05/17) Blood glucose overall good - continue on Levemir 30u daily and 25 units at night. Continue on prandial NovoLog 10 units 3 times daily. - Resume patient's home medication glyburide but at lower dose - continue accucheks and ISS Hypertension, chronic essential - Continue metoprolol Anemia of chronic disease - H&H are stable and no further hematuria - Continue to monitor CBC as indicated Pulmonary embolus - restarted Eliquis-12/16 no plans for permacath anymore Neurogenic bladder Urinary retention - Suprapubic catheter in place. Appreciate urology recommendations. - Suprapubic catheter exchange and upsizing 11/14 - SC changed 01/17 - routine care - and change q 4 weeks. Constipation +BM - Continue on PeriColace BID - Continue on Miralax BID scheduled - monitor BMs DVT prophylaxis Eliquis Discussed Condition With: patient, nursing staff, Dr. Martinez Discharge Planning: Difficult placement. CM assists with ongoing discharge planning.
[2018-02-01] MEDS: predniSONE 10 MG Tablet PO SCH (09:30)
[2018-02-01] MEDS: Calcium Acetate 667 MG Capsule PO SCH ×3 (09:30→18:09)
[2018-02-01] MEDS: Polyethylene Glycol 3350 17 GM Packet PO SCH ×2 (09:30→22:14)
[2018-02-01] MEDS: Gabapentin 300 MG Capsule PO SCH ×3 (09:31→18:09)
[2018-02-01] MEDS: Baclofen 10 MG Tablet PO SCH ×4 (09:31→22:16)
[2018-02-01] MEDS: Insulin NovoLOG Aspart Correctional Sugar Inj SQ SCH ×4 (09:32→22:18)
[2018-02-01] MEDS: Senna/Docusate Sodium 8.6/50 MG Tablet PO SCH ×2 (09:32→22:18)
[2018-02-01] MEDS: Calcium/Vitamin D 250/125 MG Tablet PO SCH (09:32)
[2018-02-01] MEDS: Ascorbic Acid 500 MG Tablet PO SCH (09:36)
[2018-02-01] MEDS: glyBURIDE 2.5 MG Tablet PO SCH ×2 (09:37→18:10)
[2018-02-01] MEDS: Nortriptyline 10 MG Capsule PO SCH (22:16)
[2018-02-02] MEDS: Sod Chloride 0.9% Inj 1,000 ML IV.SIG SCH ×5 (01:15→22:16)
--- NOTE | 2018-02-02 07:46 | P.PN ---
Subjective Interval history: Follow-up of patient with neuromyelitis optica, transverse myelitis. Patient seen and examined. Patient complains of persistent right sided neck discomfort since the Vas Cath was removed several mos ago. She denies any limitation with ROM. She denies any fever or chills. She denies any chest pain or shortness of breath. Physical Exam Vital signs: Vital Signs 02/01/18 08:00 02/01/18 12:00 02/01/18 16:00 Temperature 97.9 F 98.1 F 98.1 F Pulse Rate 81 82 76 Respiratory Rate 20 20 20 Blood Pressure 143/79 H 123/77 135/66 Pulse Oximetry 98 100 100 02/01/18 20:00 02/02/18 00:00 02/02/18 04:00 Temperature 98.5 F 98.5 F 98.7 F Pulse Rate 90 100 H 84 Respiratory Rate 18 18 18 Blood Pressure 127/81 111/66 139/78 Pulse Oximetry 98 99 100 Intake & Output 02/01/18 02/02/18 02/02/18 18:59 06:59 18:59 Intake Total 820 / 820 1600 / 1600 Output Total 2801 / 2801 3001 / 3001 Balance -1981 / -1981 -1401 / -1401 Weight 70.1 kg Intake: Oral 820 / 820 1600 / 1600 Output: Urine 1800 / 1800 3000 / 3000 Stool / Urine Amount (Catheter) 1000 / 1000 Suprapubic 1000 / 1000 Other: Date of Last Bowel Movement 02/01/18 02/02/18 # Bowel Movements 2 Narrative: GENERAL: WDWN female. Awake and alert. Sitting up in bed eating breakfast. Appears comfortable. In no acute distress. SKIN: Warm and dry. No generalized rash. HEENT: Atraumatic. Normocephalic. Pupils equal and round. No scleral icterus. No injection or drainage. No nasal bleeding or discharge. Mucous membranes pink and moist. NECK: Trachea midline. Tenderness to palpation over anterior right side of neck. CARDIOVASCULAR: Regular rate and rhythm. RESPIRATORY: No accessory muscle use. Clear to auscultation anteriorly. Breath sounds equal bilaterally. GASTROINTESTINAL: Abdomen soft, non-tender, nondistended. +BS. : suprapubic catheter in place MUSCULOSKELETAL: Extremities without clubbing, cyanosis. +Trace BLE edema. NEUROLOGICAL: Awake and alert. No obvious cranial nerve deficits. Decreased motor function bilateral UEs. BLE paresis. Normal speech. PSYCHIATRIC: Appropriate mood and affect; insight and judgment normal. - Urinary Catheter Management Suprapubic Cath placed during this visit: yes Reason for continuing: Chronic Urinary Retention Insertion date: 01/17/18 Results - Labs CBC & Chem 7: 02/01/18 06:15 02/01/18 06:15 Laboratory Results - last 24 hr 02/01/18 02/01/18 02/01/18 07:52 12:03 16:27 POC Glucose 187 H 129 H 370 H 02/01/18 02/02/18 21:46 03:43 POC Glucose 240 H 189 H - Procedures none Assessment and Plan - Assessment (1) Neuromyelitis optica Code(s): G36.0 - Neuromyelitis optica [Devic] Status: Acute (2) Pulmonary embolism Code(s): I26.99 - Other pulmonary embolism without acute cor pulmonale Status : Acute (3) DM type 2 (diabetes mellitus, type 2) Code(s): E11.9 - Type 2 diabetes mellitus without complications Status: Acute - Plan 47-year-old female with a history of diabetes, 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. Neuromyelitis optica, transverse myelitis, paraplegia New complaints unable to feel with her hands- UE sensation and strength much improved - Returned from [facility] following a one-month stay there. - Continue prednisone 30mg daily, CellCept for 6 months. - Bactrim Wednesday/Wednesday/Wednesday prophylactically. - Continue physical therapy, Occupational Therapy - Hematology and neurology following - s/p IV Rituxin infusion 01/06 and 01/20 - no further treatment x 6 mos. F/U with Dr. Estrella. Diabetes mellitus, insulin-dependent HgA1C 7.9 (10/05/17) Blood glucose elevated yesterday afternoon but 90 this am - continue on Levemir 30u daily and 25 units at night. Continue on prandial NovoLog 10 units 3 times daily. - Continue on Glyburide 2.5mg BID - continue accucheks and ISS Hypertension, chronic essential - Continue metoprolol Anemia of chronic disease - H&H are stable and no further hematuria - Continue to monitor CBC as indicated Pulmonary embolus - restarted Eliquis-12/16 no plans for permacath anymore Right sided neck pain s/p Vas Cath removal - obtain soft tissue US for further evaluation Neurogenic bladder Urinary retention - Suprapubic catheter in place. Appreciate urology recommendations. - Suprapubic catheter exchange and upsizing 11/14 - SC changed 01/17 - routine care - and change q 4 weeks. Constipation +BM - Continue on PeriColace BID - Continue on Miralax BID scheduled - monitor BMs DVT prophylaxis Eliquis Discussed Condition With: patient, nursing staff, Dr. Martinez Discharge Planning: Difficult placement. CM assists with ongoing discharge planning.
[2018-02-02] MEDS: Calcium Acetate 667 MG Capsule PO SCH ×3 (09:24→17:51)
[2018-02-02] MEDS: Calcium/Vitamin D 250/125 MG Tablet PO SCH (09:25)
[2018-02-02] MEDS: Senna/Docusate Sodium 8.6/50 MG Tablet PO SCH ×2 (09:26→22:15)
[2018-02-02] MEDS: predniSONE 10 MG Tablet PO SCH (09:26)
[2018-02-02] MEDS: Polyethylene Glycol 3350 17 GM Packet PO SCH ×2 (09:26→22:15)
[2018-02-02] MEDS: Sulfamethoxazole/Trimethoprim 400/80 MG Tablet PO SCH (09:26)
[2018-02-02] MEDS: Ascorbic Acid 500 MG Tablet PO SCH (09:26)
[2018-02-02] MEDS: Gabapentin 300 MG Capsule PO SCH ×3 (09:26→17:51)
[2018-02-02] MEDS: Insulin NovoLOG Aspart Correctional Sugar Inj SQ SCH ×4 (09:27→22:15)
[2018-02-02] MEDS: glyBURIDE 2.5 MG Tablet PO SCH ×2 (09:28→17:50)
[2018-02-02] MEDS: Baclofen 10 MG Tablet PO SCH ×4 (09:29→22:14)
[2018-02-02] MEDS: Insulin Detemir Inj 1,000 UNIT/10 ML Vial SQ SCH ×2 (10:01→22:16)
[2018-02-02] MEDS: Nortriptyline 10 MG Capsule PO SCH (22:13)
--- NOTE | 2018-02-02 22:50 | US ---
EXAM DATE: 02/02/2018 10:47 PM EDT AGE/SEX: 47 years / Female INDICATIONS: Right side neck pain post vas cath removal. CLINICAL DATA: This is the patient's initial encounter. Patient reports that signs and symptoms have been present for 3 months and indicates a pain score of 7/10. MEDICAL/SURGICAL HISTORY: . Neuromyelitis optica, DVT, Anemia. . x3, Appendectomy, Suprapubic tube placement, Vascular catheter placement and removal. COMPARISON: No prior exams available for comparison. FINDINGS: A targeted ultrasound examination was performed along the right anterior neck in the area of pain. Th is demonstrated no mass or abnormal fluid collection. Changes fat and thyroid gland appear unremarkab le. CONCLUSION: 1. Negative study. Electronically signed by: Joe Nielson MD 02/02/2018 10:49 PM EDT
[2018-02-03] MEDS: Sod Chloride 0.9% Inj 1,000 ML IV.SIG SCH ×5 (05:03→23:03)
[2018-02-03] MEDS: diazePAM 5 MG Tablet PO PRN (06:49)
[2018-02-03] MEDS: Insulin Detemir Inj 1,000 UNIT/10 ML Vial SQ SCH ×2 (09:17→23:03)
[2018-02-03] MEDS: predniSONE 10 MG Tablet PO SCH (09:19)
[2018-02-03] MEDS: Calcium/Vitamin D 250/125 MG Tablet PO SCH (09:19)
[2018-02-03] MEDS: Gabapentin 300 MG Capsule PO SCH ×3 (09:19→17:45)
[2018-02-03] MEDS: Calcium Acetate 667 MG Capsule PO SCH ×3 (09:19→17:45)
[2018-02-03] MEDS: Baclofen 10 MG Tablet PO SCH ×4 (09:19→22:55)
[2018-02-03] MEDS: Ascorbic Acid 500 MG Tablet PO SCH (09:20)
[2018-02-03] MEDS: Senna/Docusate Sodium 8.6/50 MG Tablet PO SCH ×2 (09:20→23:03)
[2018-02-03] MEDS: Insulin NovoLOG Aspart Correctional Sugar Inj SQ SCH ×4 (09:21→23:03)
[2018-02-03] MEDS: Polyethylene Glycol 3350 17 GM Packet PO SCH ×2 (09:21→23:03)
[2018-02-03] MEDS: glyBURIDE 2.5 MG Tablet PO SCH ×2 (09:59→17:45)
--- NOTE | 2018-02-03 11:41 | P.PN ---
Subjective Interval history: Follow-up of patient with neuromyelitis optica, transverse myelitis. Patient seen and examined. Patient is stable. No significant change. US neck unremarkable. Physical Exam Vital signs: Vital Signs 02/02/18 12:00 02/02/18 16:00 02/02/18 20:00 Temperature 98.1 F 98.8 F 98.6 F Pulse Rate 79 90 90 Respiratory Rate 17 19 18 Blood Pressure 117/58 L 125/78 142/88 H Pulse Oximetry 99 100 99 02/02/18 23:01 02/03/18 00:00 02/03/18 04:00 Temperature 98.5 F 98.8 F Pulse Rate 91 H 95 H Respiratory Rate 18 18 18 Blood Pressure 136/81 140/69 Pulse Oximetry 100 02/03/18 08:00 Temperature 98.4 F Pulse Rate 89 Respiratory Rate 17 Blood Pressure 128/73 Pulse Oximetry 98 Intake & Output 02/02/18 02/03/18 02/03/18 18:59 06:59 18:59 Intake Total 625 / 625 600 / 600 Output Total 2200 / 2200 1950 / 1950 Balance -1575 / -1575 -1350 / -1350 Intake: Oral 625 / 625 600 / 600 Output: Urine 2200 / 2200 1950 / 1950 Other: Date of Last Bowel Movement 02/02/18 02/03/18 02/02/18 # Bowel Movements 2 1 Narrative: GENERAL: WDWN female. Awake and alert. Appears comfortable. In no acute distress. SKIN: Warm and dry. No generalized rash. HEENT: Atraumatic. Normocephalic. Pupils equal and round. No scleral icterus. No injection or drainage. No nasal bleeding or discharge. Mucous membranes pink and moist. NECK: Trachea midline. Tenderness to palpation over anterior right side of neck. CARDIOVASCULAR: Regular rate and rhythm. RESPIRATORY: No accessory muscle use. Clear to auscultation anteriorly. Breath sounds equal bilaterally. GASTROINTESTINAL: Abdomen soft, non-tender, nondistended. +BS. : suprapubic catheter in place MUSCULOSKELETAL: Extremities without clubbing, cyanosis. +Trace BLE edema. NEUROLOGICAL: Awake and alert. No obvious cranial nerve deficits. Decreased motor function bilateral UEs. BLE paresis. Normal speech. PSYCHIATRIC: Appropriate mood and affect; insight and judgment normal. - Urinary Catheter Management Suprapubic Cath placed during this visit: yes Reason for continuing: Chronic Urinary Retention Insertion date: 01/17/18 Results - Labs CBC & Chem 7: 02/01/18 06:15 02/01/18 06:15 Laboratory Results - last 24 hr 02/02/18 02/02/18 02/02/18 13:03 17:08 21:59 POC Glucose 254 H 309 H 251 H 02/03/18 02/03/18 03:42 07:04 POC Glucose 210 H 224 H - Imaging Impressions Soft Tissue Ultrasound 02/02/18 00:00 CONCLUSION: 1. Negative study. 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 Neuromyelitis optica, transverse myelitis, paraplegia New complaints unable to feel with her hands- UE sensation and strength much improved - Returned from [facility] following a one-month stay there. - Continue prednisone 30mg daily, CellCept for 6 months. - Bactrim Wednesday/Wednesday/Wednesday prophylactically. - Continue physical therapy, Occupational Therapy - Hematology and neurology following - s/p IV Rituxin infusion 01/06 and 01/20 - no further treatment x 6 mos. F/U with Dr. Estrella. Diabetes mellitus, insulin-dependent HgA1C 7.9 (10/05/17) Blood glucose elevated in afternoon - Increase Levemir to 32u daily - continue on Levemir 25 units at night. Continue on prandial NovoLog 10 units 3 times daily. - Continue on Glyburide 2.5mg BID - continue accucheks and ISS Hypertension, chronic essential - Continue metoprolol Anemia of chronic disease - H&H are stable and no further hematuria - Continue to monitor CBC as indicated Pulmonary embolus - restarted Eliquis-12/16 no plans for permacath anymore Right sided neck pain s/p Vas Cath removal - soft tissue US unremarkable Neurogenic bladder Urinary retention - Suprapubic catheter in place. Appreciate urology recommendations. - Suprapubic catheter exchange and upsizing 11/14 - SC changed 01/17 - routine care - and change q 4 weeks. Constipation +BM - Continue on PeriColace BID - Continue on Miralax BID scheduled - monitor BMs DVT prophylaxis [place] Discussed Condition With: patient, nursing staff, Dr. Martinez Discharge Planning: Difficult placement. CM assists with ongoing discharge planning.
[2018-02-03] MEDS: Nortriptyline 10 MG Capsule PO SCH (23:01)
[2018-02-04] MEDS: Sod Chloride 0.9% Inj 1,000 ML IV.SIG SCH ×5 (01:42→22:51)
--- NOTE | 2018-02-04 07:58 | P.PN ---
Subjective Interval history: Patient is stable. No significant change. Patient reports uneventful evening. She is afebrile. VSS. Physical Exam Vital signs: Vital Signs 02/03/18 08:00 02/03/18 12:00 02/03/18 16:00 Temperature 98.4 F 98.5 F 98.6 F Pulse Rate 89 95 H 79 Respiratory Rate 17 17 17 Blood Pressure 128/73 128/70 139/84 Pulse Oximetry 98 100 100 02/03/18 20:00 02/03/18 23:19 02/04/18 04:00 Temperature 98.1 F 98.4 F 97.6 F Pulse Rate 88 73 75 Respiratory Rate 20 18 16 Blood Pressure 119/67 142/67 H 132/76 Pulse Oximetry 100 99 95 Intake & Output 02/03/18 02/04/18 02/04/18 18:59 06:59 18:59 Intake Total 1440 / 1440 1200 / 1200 Output Total 1500 / 1500 3900 / 3900 Balance -60 / -60 -2700 / -2700 Weight 110 kg Intake: Oral 1440 / 1440 1200 / 1200 Output: Urine 1500 / 1500 3900 / 3900 Other: Date of Last Bowel Movement 02/03/18 02/03/18 # Bowel Movements 1 1 Narrative: GENERAL: WDWN female, INAD. Awake and alert. Appears comfortable. SKIN: Warm and dry. No generalized rash. HEENT: Atraumatic. Normocephalic. Pupils equal and round. No scleral icterus. No injection or drainage. No nasal bleeding or discharge. Mucous membranes pink and moist. NECK: Trachea midline. Tenderness to palpation over anterior right side of neck. CARDIOVASCULAR: Regular rate and rhythm. RESPIRATORY: No accessory muscle use. Clear to auscultation anteriorly. Breath sounds equal bilaterally. GASTROINTESTINAL: Abdomen soft, non-tender, nondistended. +BS. : suprapubic catheter in place MUSCULOSKELETAL: Extremities without clubbing, cyanosis. +Trace BLE edema. NEUROLOGICAL: Awake and alert. No obvious cranial nerve deficits. Decreased motor function bilateral UEs. BLE paresis. Normal speech. PSYCHIATRIC: Appropriate mood and affect; insight and judgment normal. - Urinary Catheter Management Suprapubic Cath placed during this visit: yes Reason for continuing: Chronic Urinary Retention Insertion date: 01/17/18 Results - Labs CBC & Chem 7: 02/01/18 06:15 02/01/18 06:15 Laboratory Results - last 24 hr 02/03/18 02/03/18 02/03/18 12:10 17:03 20:19 POC Glucose 176 H 273 H 304 H 02/04/18 03:47 POC Glucose 85 - Procedures none Assessment and Plan - Assessment (1) Neuromyelitis optica Code(s): G36.0 - Neuromyelitis optica [Devic] Status: Acute (2) Pulmonary embolism Code(s): I26.99 - Other pulmonary embolism without acute cor pulmonale Status : Acute (3) DM type 2 (diabetes mellitus, type 2) Code(s): E11.9 - Type 2 diabetes mellitus without complications Status: Acute - Plan 47-year-old female with a history of diabetes, neuromyelitis optica with transverse myelitis that resulted in sensorimotor paraplegia diagnosed in May 2017, arthritis, hypertension, iron deficiency anemia was a transfer back from [facility]. Neuromyelitis optica, transverse myelitis, paraplegia New complaints unable to feel with her hands- UE sensation and strength much improved - Returned from [facility] following a one-month stay there. - Continue prednisone 30mg daily, CellCept for 6 months. - Bactrim Wednesday/Wednesday/Wednesday prophylactically. - Continue physical therapy, Occupational Therapy - Hematology and neurology following - s/p IV Rituxin infusion 01/06 and 01/20 - no further treatment x 6 mos. F/U with Dr. Estrella. Diabetes mellitus, insulin-dependent HgA1C 7.9 (10/05/17) Blood glucose running lower - Hold prandial Novolog - Continue Levemir 32u daily and Levemir 25 units at night. - Continue on Glyburide 2.5mg BID - continue accucheks and ISS Hypertension, chronic essential - Continue metoprolol Anemia of chronic disease - H&H are stable and no further hematuria - Continue to monitor CBC as indicated Pulmonary embolus - restarted Eliquis-12/16 no plans for permacath anymore Right sided neck pain s/p Vas Cath removal - soft tissue US unremarkable Neurogenic bladder Urinary retention - Suprapubic catheter in place. Appreciate urology recommendations. - Suprapubic catheter exchange and upsizing 11/14 - SC changed 01/17 - routine care - and change q 4 weeks. Constipation +BM - Continue on PeriColace BID - Continue on Miralax BID scheduled - monitor BMs DVT prophylaxis Eliquis Code Status: FULL Discussed Condition With: patient, nursing staff, Dr. Martinez Discharge Planning: Difficult placement. CM assists with ongoing discharge planning.
[2018-02-04] MEDS: Gabapentin 300 MG Capsule PO SCH ×3 (09:53→18:28)
[2018-02-04] MEDS: Calcium/Vitamin D 250/125 MG Tablet PO SCH (09:53)
[2018-02-04] MEDS: predniSONE 10 MG Tablet PO SCH (09:53)
[2018-02-04] MEDS: Ascorbic Acid 500 MG Tablet PO SCH (09:53)
[2018-02-04] MEDS: Calcium Acetate 667 MG Capsule PO SCH ×3 (09:53→18:35)
[2018-02-04] MEDS: Senna/Docusate Sodium 8.6/50 MG Tablet PO SCH ×2 (09:54→22:48)
[2018-02-04] MEDS: Baclofen 10 MG Tablet PO SCH ×4 (09:54→22:48)
[2018-02-04] MEDS: Polyethylene Glycol 3350 17 GM Packet PO SCH ×2 (09:55→22:50)
[2018-02-04] MEDS: Insulin NovoLOG Aspart Correctional Sugar Inj SQ SCH ×4 (10:07→22:50)
[2018-02-04] MEDS: Insulin Detemir Inj 1,000 UNIT/10 ML Vial SQ SCH ×2 (10:08→22:50)
[2018-02-04] MEDS: glyBURIDE 2.5 MG Tablet PO SCH ×2 (11:12→18:32)
[2018-02-04] MEDS: Sulfamethoxazole/Trimethoprim 400/80 MG Tablet PO SCH (11:13)
[2018-02-04] MEDS: Nortriptyline 10 MG Capsule PO SCH (22:47)
[2018-02-05] MEDS: Sod Chloride 0.9% Inj 1,000 ML IV.SIG SCH ×5 (05:47→22:31)
[2018-02-05] MEDS: diazePAM 5 MG Tablet PO PRN (06:00)
[2018-02-05] MEDS: Senna/Docusate Sodium 8.6/50 MG Tablet PO SCH ×2 (08:09→22:28)
[2018-02-05] MEDS: Ascorbic Acid 500 MG Tablet PO SCH (08:09)
[2018-02-05] MEDS: Calcium/Vitamin D 250/125 MG Tablet PO SCH (08:09)
[2018-02-05] MEDS: Gabapentin 300 MG Capsule PO SCH ×3 (08:10→17:53)
[2018-02-05] MEDS: Baclofen 10 MG Tablet PO SCH ×4 (08:10→22:29)
[2018-02-05] MEDS: Polyethylene Glycol 3350 17 GM Packet PO SCH ×2 (08:10→22:27)
[2018-02-05] MEDS: predniSONE 10 MG Tablet PO SCH (08:10)
[2018-02-05] MEDS: glyBURIDE 2.5 MG Tablet PO SCH (08:10)
[2018-02-05] MEDS: Calcium Acetate 667 MG Capsule PO SCH ×3 (08:10→17:53)
[2018-02-05] MEDS: Insulin NovoLOG Aspart Correctional Sugar Inj SQ SCH ×4 (08:10→22:29)
[2018-02-05] MEDS: Insulin Detemir Inj 1,000 UNIT/10 ML Vial SQ SCH ×2 (08:11→22:30)
--- NOTE | 2018-02-05 11:02 | P.PN ---
Subjective Interval history: Follow up on patient with Neuromyelitis optica, transverse myelitis, paraplegia. Patient seen and examined. Patient is stable. No significant change. She denies any acute medical complaints. DW nursing staff, no acute issues noted overnight. Physical Exam Vital signs: Vital Signs 02/04/18 12:00 02/04/18 15:56 02/04/18 20:00 Temperature 98 F 98 F 98.1 F Pulse Rate 93 H 78 90 Respiratory Rate 18 Blood Pressure 117/71 151/91 H 126/74 Pulse Oximetry 100 100 100 02/04/18 23:38 02/05/18 00:00 02/05/18 04:00 Temperature 98 F 98 F Pulse Rate 78 76 Respiratory Rate 18 Blood Pressure 138/66 147/79 H Pulse Oximetry 99 100 02/05/18 08:00 Temperature 97.7 F Pulse Rate 81 Respiratory Rate 20 Blood Pressure 129/72 Pulse Oximetry 96 Intake & Output 02/04/18 02/05/18 02/05/18 18:59 06:59 18:59 Intake Total 960 / 960 Output Total 3150 / 3150 2400 / 2400 Balance -2190 / -2190 -2400 / -2400 Weight 110.2 kg Intake: Oral 960 / 960 Output: Urine 1800 / 1800 2400 / 2400 Urine Amount (Catheter) 1350 / 1350 Suprapubic 1350 / 1350 Other: Date of Last Bowel Movement 02/03/18 02/05/18 Narrative: GENERAL: WDWN female, INAD. Awake and alert. Appears comfortable. Sitting up in bed. SKIN: Warm and dry. No generalized rash. HEENT: Atraumatic. Normocephalic. Pupils equal and round. No scleral icterus. No injection or drainage. No nasal bleeding or discharge. Mucous membranes pink and moist. NECK: Trachea midline. CARDIOVASCULAR: Regular rate and rhythm. RESPIRATORY: No accessory muscle use. Clear to auscultation anteriorly. Breath sounds equal bilaterally. GASTROINTESTINAL: Abdomen soft, non-tender, nondistended. +BS. : suprapubic catheter in place MUSCULOSKELETAL: Extremities without clubbing, cyanosis. +Trace BLE edema. NEUROLOGICAL: Awake and alert. No obvious cranial nerve deficits. Decreased motor function bilateral UEs. BLE paresis. Normal speech. PSYCHIATRIC: Appropriate mood and affect; insight and judgment normal. - Urinary Catheter Management Suprapubic Cath placed during this visit: yes Reason for continuing: Chronic Urinary Retention Insertion date: 01/17/18 Results - Labs CBC & Chem 7: 02/01/18 06:15 02/01/18 06:15 Laboratory Results - last 24 hr 02/04/18 02/04/18 02/04/18 12:42 17:20 22:35 POC Glucose 106 381 H 218 H 02/05/18 02/05/18 04:33 07:56 POC Glucose 163 H 215 H - Procedures none Assessment and Plan - Assessment (1) Neuromyelitis optica Code(s): G36.0 - Neuromyelitis optica [Devic] Status: Acute (2) Pulmonary embolism Code(s): I26.99 - Other pulmonary embolism without acute cor pulmonale Status : Acute (3) DM type 2 (diabetes mellitus, type 2) Code(s): E11.9 - Type 2 diabetes mellitus without complications Status: Acute - Plan 47-year-old female with a history of diabetes, 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 Neuromyelitis optica, transverse myelitis, paraplegia New complaints unable to feel with her hands- UE sensation and strength much improved - Returned from [facility] following a one-month stay there. - Continue prednisone 30mg daily, CellCept for 6 months. - Bactrim Wednesday/Wednesday/Wednesday prophylactically. - Continue physical therapy, Occupational Therapy - Hematology and neurology following - s/p IV Rituxin infusion 01/06 and 01/20 - no further treatment x 6 mos. F/U with Dr. Estrella. Diabetes mellitus, insulin-dependent HgA1C 7.9 (10/05/17) - resume prandial Novolog 5u TIDAC - Continue Levemir 32u daily and Levemir 25 units at night. - Increase Glyburide to 5mg BID - continue accucheks and ISS Hypertension, chronic essential - Continue metoprolol Anemia of chronic disease - H&H are stable and no further hematuria - Continue to monitor CBC as indicated Pulmonary embolus - restarted Eliquis-12/16 no plans for permacath anymore Right sided neck pain s/p Vas Cath removal - soft tissue US unremarkable Neurogenic bladder Urinary retention - Suprapubic catheter in place. Appreciate urology recommendations. - Suprapubic catheter exchange and upsizing 11/14 - SC changed 01/17 - routine care - and change q 4 weeks. Constipation +BM - Continue on PeriColace BID - Continue on Miralax BID scheduled - monitor BMs DVT prophylaxis Eliquis Discussed Condition With: patient, nursing staff, Dr. Martinez Discharge Planning: Difficult placement. CM assists with ongoing discharge planning.
[2018-02-05] MEDS: diphenhydrAMINE HCl 12.5 MG/5 ML Elixir UDC PO PRN (22:27)
[2018-02-05] MEDS: Nortriptyline 10 MG Capsule PO SCH (22:28)
[2018-02-06] MEDS: Sod Chloride 0.9% Inj 1,000 ML IV.SIG SCH ×4 (04:17→17:44)
[2018-02-06] MEDS: Insulin Detemir Inj 1,000 UNIT/10 ML Vial SQ SCH ×2 (06:51→22:27)
--- NOTE | 2018-02-06 07:54 | P.PN ---
Subjective Interval history: Follow up on patient with Neuromyelitis optica, transverse myelitis, paraplegia. Patient seen and examined. Patient complaining of pain and redness around suprapubic tube. She denies any fever or chills. She denies any chest pain or shortness of breath. Physical Exam Vital signs: Vital Signs 02/05/18 08:00 02/05/18 12:00 02/05/18 16:00 Temperature 97.7 F 98.7 F 99.2 F Pulse Rate 81 86 91 H Respiratory Rate 20 20 20 Blood Pressure 129/72 141/84 H 136/84 Pulse Oximetry 96 100 100 02/05/18 20:00 02/06/18 00:00 02/06/18 02:33 Temperature 98.3 F 97.7 F Pulse Rate 94 H 89 Respiratory Rate 18 18 18 Blood Pressure 115/76 138/72 Pulse Oximetry 100 100 02/06/18 04:00 Temperature 97.9 F Pulse Rate Respiratory Rate 18 Blood Pressure 131/69 Pulse Oximetry 99 Intake & Output 02/05/18 02/06/18 02/06/18 18:59 06:59 18:59 Output Total 3000 / 3000 800 / 800 Balance -3000 / -3000 -800 / -800 Weight 111.6 kg Output: Urine 3000 / 3000 800 / 800 Other: Date of Last Bowel Movement 02/05/18 # Bowel Movements 1 Narrative: GENERAL: WDWN female, INAD. Awake and alert. Appears comfortable. Sitting up in chair. SKIN: Warm and dry. No generalized rash. HEENT: Atraumatic. Normocephalic. Pupils equal and round. No scleral icterus. No injection or drainage. No nasal bleeding or discharge. Mucous membranes pink and moist. NECK: Trachea midline. CARDIOVASCULAR: Regular rate and rhythm. RESPIRATORY: No accessory muscle use. Clear to auscultation anteriorly. Breath sounds equal bilaterally. GASTROINTESTINAL: Abdomen soft, non-tender, nondistended. +BS. : suprapubic catheter in place with area of erythema and tenderness to palpation MUSCULOSKELETAL: Extremities without clubbing, cyanosis. +Trace BLE edema. NEUROLOGICAL: Awake and alert. No obvious cranial nerve deficits. Decreased motor function bilateral UEs. BLE paresis. Normal speech. PSYCHIATRIC: Appropriate mood and affect; insight and judgment normal. - Urinary Catheter Management Suprapubic Cath placed during this visit: yes Reason for continuing: Acute urinary retention Insertion date: 01/17/18 Results - Labs CBC & Chem 7: 02/01/18 06:15 02/01/18 06:15 Laboratory Results - last 24 hr 02/05/18 02/05/18 02/05/18 07:56 11:39 17:31 POC Glucose 215 H 248 H 368 H 02/05/18 02/06/18 02/06/18 22:04 06:03 07:37 POC Glucose 265 H 191 H 298 H - Procedures none Assessment and Plan - Assessment (1) Neuromyelitis optica Code(s): G36.0 - Neuromyelitis optica [Devic] Status: Acute (2) Pulmonary embolism Code(s): I26.99 - Other pulmonary embolism without acute cor pulmonale Status : Acute (3) DM type 2 (diabetes mellitus, type 2) Code(s): E11.9 - Type 2 diabetes mellitus without complications Status: Acute - Plan 47-year-old female with a history of diabetes, 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 Neuromyelitis optica, transverse myelitis, paraplegia New complaints unable to feel with her hands- UE sensation and strength much improved - Returned from [facility] following a one-month stay there. - Continue prednisone 30mg daily, CellCept for 6 months. 02/06 will discuss with Neuro when to recheck CellCept level to see if we can titrate down on Prednisone dose in the near future. - Bactrim Wednesday/Wednesday/Wednesday prophylactically. - Continue physical therapy, Occupational Therapy - Hematology and neurology following - s/p IV Rituxin infusion 01/06 and 01/20 - no further treatment x 6 mos. F/U with Dr. Estrella. Diabetes mellitus, insulin-dependent HgA1C 7.9 (10/05/17) - increase prandial Novolog to 8u TIDAC - Continue Levemir 32u daily and Levemir 25 units at night. - Continue Glyburide 5mg BID - continue accucheks and ISS Hypertension, chronic essential - Continue metoprolol Anemia of chronic disease - H&H are stable and no further hematuria - Continue to monitor CBC as indicated Pulmonary embolus - restarted Eliquis-7/26 no plans for permacath anymore Right sided neck pain s/p Vas Cath removal - soft tissue US unremarkable Neurogenic bladder Urinary retention - Suprapubic catheter in place. Appreciate urology recommendations. - Suprapubic catheter exchange and upsizing 11/14 - SC changed 01/17 - routine care - and change q 4 weeks. Suprapubic cellulitis - change SC now. Begin Keflex po x 5 days. Monitor for improvement. Constipation +BM - Continue on PeriColace BID - Continue on Miralax BID scheduled - monitor BMs DVT prophylaxis Eliquis Discussed Condition With: patient, nursing staff, Dr. Martinez Discharge Planning: Difficult placement. CM assists with ongoing discharge planning.
[2018-02-06] MEDS: Baclofen 10 MG Tablet PO SCH ×4 (09:36→22:26)
[2018-02-06] MEDS: Calcium/Vitamin D 250/125 MG Tablet PO SCH (09:36)
[2018-02-06] MEDS: predniSONE 10 MG Tablet PO SCH (09:37)
[2018-02-06] MEDS: Ascorbic Acid 500 MG Tablet PO SCH (09:37)
[2018-02-06] MEDS: Gabapentin 300 MG Capsule PO SCH ×3 (09:37→17:43)
[2018-02-06] MEDS: Calcium Acetate 667 MG Capsule PO SCH ×3 (09:37→17:43)
[2018-02-06] MEDS: Polyethylene Glycol 3350 17 GM Packet PO SCH ×2 (09:38→22:27)
[2018-02-06] MEDS: Insulin NovoLOG Aspart Correctional Sugar Inj SQ SCH ×4 (09:38→22:26)
[2018-02-06] MEDS: Senna/Docusate Sodium 8.6/50 MG Tablet PO SCH ×2 (09:38→22:25)
[2018-02-06] MEDS: Nortriptyline 10 MG Capsule PO SCH (22:25)
[2018-02-07] MEDS: Sod Chloride 0.9% Inj 1,000 ML IV.SIG SCH ×3 (02:34→09:47)
[2018-02-07] MEDS: Calcium Acetate 667 MG Capsule PO SCH ×3 (07:08→18:04)
[2018-02-07] MEDS: Insulin NovoLOG Aspart Correctional Sugar Inj SQ SCH ×4 (09:44→22:07)
[2018-02-07] MEDS: Insulin Detemir Inj 1,000 UNIT/10 ML Vial SQ SCH ×2 (09:44→22:08)
[2018-02-07] MEDS: Sulfamethoxazole/Trimethoprim 400/80 MG Tablet PO SCH (09:45)
[2018-02-07] MEDS: Baclofen 10 MG Tablet PO SCH ×4 (09:45→22:05)
[2018-02-07] MEDS: Ascorbic Acid 500 MG Tablet PO SCH (09:46)
[2018-02-07] MEDS: Senna/Docusate Sodium 8.6/50 MG Tablet PO SCH ×2 (09:46→22:05)
[2018-02-07] MEDS: Calcium/Vitamin D 250/125 MG Tablet PO SCH (09:46)
[2018-02-07] MEDS: predniSONE 10 MG Tablet PO SCH (09:46)
[2018-02-07] MEDS: Gabapentin 300 MG Capsule PO SCH ×3 (09:47→18:05)
[2018-02-07] MEDS: Polyethylene Glycol 3350 17 GM Packet PO SCH ×2 (09:47→22:04)
--- NOTE | 2018-02-07 12:47 | P.PN ---
Subjective Interval history: Follow up on patient with Neuromyelitis optica, transverse myelitis, paraplegia. Patient seen and examined. Patient still having some suprapubic tenderness. Suprapubic catheter changed yesterday. She denies any fever or chills. She denies any chest pain or shortness of breath. Physical Exam Vital signs: Vital Signs 02/06/18 16:00 02/06/18 19:03 02/06/18 20:00 Temperature 76 F L 98.3 F Pulse Rate 76 83 Respiratory Rate 20 19 18 Blood Pressure 152/90 H 133/83 Pulse Oximetry 100 100 02/07/18 00:00 02/07/18 04:00 02/07/18 08:00 Temperature 98.2 F 98.3 F 98.6 F Pulse Rate 89 75 72 Respiratory Rate 20 20 14 Blood Pressure 125/81 133/64 133/74 Pulse Oximetry 100 96 96 Intake & Output 02/06/18 02/07/18 02/07/18 18:59 06:59 18:59 Intake Total 1143 / 1143 Output Total 1999 1700 / 1700 Balance -1999 / -1999 -557 / -557 Weight 112.1 kg Intake: Oral 1143 / 1143 Output: Urine 1999 1700 / 1700 Other: Date of Last Bowel Movement 02/06/18 02/06/18 Narrative: GENERAL: WDWN female, INAD. Awake and alert. Appears comfortable. Sitting up in bed. SKIN: Warm and dry. HEENT: Atraumatic. Normocephalic. Pupils equal and round. No scleral icterus. No injection or drainage. No nasal bleeding or discharge. Mucous membranes pink and moist. NECK: Trachea midline. CARDIOVASCULAR: Regular rate and rhythm. RESPIRATORY: No accessory muscle use. Clear to auscultation anteriorly. Breath sounds equal bilaterally. GASTROINTESTINAL: Abdomen soft, non-tender, nondistended. +BS. : suprapubic catheter in place with area of erythema and tenderness to palpation MUSCULOSKELETAL: Extremities without clubbing, cyanosis. +Trace BLE edema. NEUROLOGICAL: Awake and alert. No obvious cranial nerve deficits. Decreased motor function bilateral UEs. BLE paresis. Normal speech. PSYCHIATRIC: Appropriate mood and affect; insight and judgment normal. - Urinary Catheter Management Suprapubic Cath placed during this visit: yes, but has since been removed by the nurse Reason for continuing: Chronic Urinary Retention Insertion date: 02/06/18 Insertion time: 17:30 Removal date: 02/06/18 Removal time: 17:30 Results - Labs CBC & Chem 7: 02/01/18 06:15 02/01/18 06:15 Laboratory Results - last 24 hr 02/06/18 02/06/18 02/07/18 16:19 21:55 03:03 POC Glucose 281 H 241 H 157 H 02/07/18 02/07/18 07:48 11:28 POC Glucose 154 H 188 H - Procedures none Assessment and Plan - Assessment (1) Neuromyelitis optica Code(s): G36.0 - Neuromyelitis optica [Devic] Status: Acute (2) Pulmonary embolism Code(s): I26.99 - Other pulmonary embolism without acute cor pulmonale Status : Acute (3) DM type 2 (diabetes mellitus, type 2) Code(s): E11.9 - Type 2 diabetes mellitus without complications Status: Acute - Plan 47-year-old female with a history of diabetes, 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 Neuromyelitis optica, transverse myelitis, paraplegia New complaints unable to feel with her hands- UE sensation and strength much improved - Returned from [facility] following a one-month stay there. - Continue prednisone 30mg daily, CellCept indefinitely per review of [facility] medical records. Once CellCept level therapeutic, may taper steroid. 02/07 GINNA Estrella. Will increase CellCept to 750mg BID and order new CellCept level. - Bactrim Wednesday/Wednesday/Wednesday prophylactically. Monitor K level intermittently. - Continue physical therapy, Occupational Therapy - Hematology and neurology following - s/p IV Rituxin infusion 01/06 and 01/20 - no further treatment x 6 mos. F/U with Dr. Estrella. Diabetes mellitus, insulin-dependent HgA1C 7.9 (10/05/17) BS better today, running in the mid 100s - Continue prandial Novolog to 8u TIDAC - Continue Levemir 32u daily and Levemir 25 units at night. - Continue Glyburide 5mg BID - continue accucheks and ISS Hypertension, chronic essential - Continue metoprolol Anemia of chronic disease - H&H are stable and no further hematuria - Continue to monitor CBC as indicated Pulmonary embolus - restarted Eliquis-12/16 no plans for permacath anymore Right sided neck pain s/p Vas Cath removal - soft tissue US unremarkable Neurogenic bladder Urinary retention - Suprapubic catheter in place. Appreciate urology recommendations. - Suprapubic catheter exchange and upsizing 11/14 - SC changed 02/07 - routine care - and change q 4 weeks. Suprapubic cellulitis - SC changed early due to cellulitis. Continue Keflex po x 5 days. Chlorhexidine wipes BID. Nystatin BID. Monitor for improvement. Constipation +BM - Continue on PeriColace BID - Continue on Miralax BID scheduled - monitor BMs DVT prophylaxis Eliquis Discussed Condition With: patient, nursing staff, Dr. Mckeon, Dr. Estrella Discharge Planning: Difficult placement. CM assists with ongoing discharge planning.
[2018-02-07] MEDS: Nystatin 100,000 UNITS/GM Powder 15 GM Bottle TOPICAL SCH ×2 (15:46→22:08)
[2018-02-07 16:08] LABS: Baso % (Auto) 0.2 % (0.0-2.0); Eos % (Auto) 0.1 % (0.0-4.0); Hematocrit 40.1 % (35.0-46.0); Hemoglobin 12.6 gm/dL (11.6-15.3); Lymph # (Auto) 0.7 th/mm3 (1.0-4.8); Lymph % (Auto) 7.6 % (9.0-44.0); Mean Corpuscular HGB Conc 31.5 % (32.0-36.0); Mean Corpuscular Hemoglobin 26.4 pg (27.0-34.0); Mean Platelet Volume 9.1 fL (7.0-11.0); Mono # (Auto) 0.2 th/mm3 (0.0-0.9); Mono % (Auto) 1.8 % (0.0-8.0); Neut # (Auto) 8.7 th/mm3 (1.8-7.7); Neut % (Auto) 90.3 % (16.0-70.0); Platelet Count 213 th/mm3 (150-450); Red Blood Count 4.77 mil/mm3 (4.00-5.30); Red Cell Distribution Width 16.5 % (11.6-17.2); White Blood Count 9.6 th/mm3 (4.0-11.0)
[2018-02-07 16:32] LABS: Albumin 3.5 g/dL (3.4-5.0); Anion Gap 9 meq/L (5-15); Aspartate Aminotransferase 31 U/L (15-37); Blood Urea Nitrogen 13 mg/dL (7-18); Calcium 9.3 mg/dL (8.5-10.1); Carbon Dioxide 29.9 meq/L (21.0-32.0); Chloride 99 meq/L (98-107); Glomerular Filtration Rate Greater Than 89 mL/min (>89); Glucose,Random 283 mg/dL (74-106); Magnesium 2.2 mg/dL (1.5-2.5); Potassium 4.6 meq/L (3.5-5.1); Sodium 138 meq/L (136-145)
[2018-02-07 16:36] LABS: Alanine Aminotransferase 91 U/L (10-53); Alkaline Phosphatase 89 U/L (45-117); Phosphorus 3.5 mg/dL (2.5-4.9); Total Protein 7.8 g/dL (6.4-8.2)
[2018-02-07] MEDS: Nortriptyline 10 MG Capsule PO SCH (22:05)
[2018-02-07] MEDS: diphenhydrAMINE HCl 12.5 MG/5 ML Elixir UDC PO PRN (22:07)
[2018-02-08] MEDS: Calcium/Vitamin D 250/125 MG Tablet PO SCH (09:42)
[2018-02-08] MEDS: Nystatin 100,000 UNITS/GM Powder 15 GM Bottle TOPICAL SCH (09:42)
[2018-02-08] MEDS: Ascorbic Acid 500 MG Tablet PO SCH (09:43)
[2018-02-08] MEDS: Calcium Acetate 667 MG Capsule PO SCH ×3 (09:43→18:26)
[2018-02-08] MEDS: Polyethylene Glycol 3350 17 GM Packet PO SCH ×2 (09:43→21:45)
[2018-02-08] MEDS: Baclofen 10 MG Tablet PO SCH ×4 (09:43→21:43)
[2018-02-08] MEDS: Gabapentin 300 MG Capsule PO SCH ×3 (09:44→18:25)
[2018-02-08] MEDS: predniSONE 10 MG Tablet PO SCH (09:44)
[2018-02-08] MEDS: Senna/Docusate Sodium 8.6/50 MG Tablet PO SCH ×2 (09:44→21:43)
[2018-02-08] MEDS: Insulin Detemir Inj 1,000 UNIT/10 ML Vial SQ SCH ×2 (09:46→21:46)
[2018-02-08] MEDS: Insulin NovoLOG Aspart Correctional Sugar Inj SQ SCH ×4 (09:46→21:45)
--- NOTE | 2018-02-08 14:50 | P.PN ---
Subjective Interval history: Follow up on patient with Neuromyelitis optica, transverse myelitis, paraplegia. Patient seen and examined. Patient denies any new medical complaints. She states the discomfort over her left suprapubic area is improving. She denies any fever or chills. She is asking to have her HgbA1c rechecked. She is currently sending necessary paperwork over to a facility in [place] for possible acceptance. Physical Exam Vital signs: Vital Signs 02/07/18 15:44 02/07/18 20:00 02/08/18 00:00 Temperature 98.2 F 97.6 F 97.7 F Pulse Rate 77 81 75 Respiratory Rate 18 18 18 Blood Pressure 134/75 131/84 135/75 Pulse Oximetry 100 100 97 02/08/18 04:00 02/08/18 04:15 02/08/18 08:00 Temperature 98 F 97.8 F Pulse Rate 74 75 Respiratory Rate 18 20 Blood Pressure 160/74 H 136/71 123/78 Pulse Oximetry 98 99 02/08/18 12:00 Temperature 97.5 F L Pulse Rate 88 Respiratory Rate 20 Blood Pressure 129/76 Pulse Oximetry 100 Intake & Output 02/07/18 02/08/18 02/08/18 18:59 06:59 18:59 Intake Total 1547 / 1547 Output Total 1275 / 1275 3450 / 3450 Balance -1275 / -1275 -1903 / -1903 Weight 109.4 kg Intake: Oral 1326 / 1326 Oral Supplement 221 / 221 Output: Urine 1275 / 1275 3450 / 3450 Other: Date of Last Bowel Movement 02/06/18 02/08/18 # Bowel Movements 1 1 # Incontinent Bowel Movements 2 Narrative: GENERAL: WDWN female, INAD. Awake and alert. Appears comfortable. Sitting up chair. SKIN: Warm and dry. HEENT: Atraumatic. Normocephalic. Pupils equal and round. No scleral icterus. No injection or drainage. No nasal bleeding or discharge. Mucous membranes pink and moist. NECK: Trachea midline. CARDIOVASCULAR: Regular rate and rhythm. RESPIRATORY: No accessory muscle use. Clear to auscultation anteriorly. Breath sounds equal bilaterally. GASTROINTESTINAL: Abdomen soft, non-tender, nondistended. +BS. : suprapubic catheter in place with area of erythema and tenderness to palpation per yesterday's exam. MUSCULOSKELETAL: Extremities without clubbing, cyanosis. +Trace BLE edema. NEUROLOGICAL: Awake and alert. No obvious cranial nerve deficits. Decreased motor function bilateral UEs. BLE paresis. Normal speech. PSYCHIATRIC: Appropriate mood and affect; insight and judgment normal. - Urinary Catheter Management Suprapubic Cath placed during this visit: yes, but has since been removed by the nurse Reason for continuing: Chronic Urinary Retention Insertion date: 02/06/18 Insertion time: 17:30 Removal date: 02/06/18 Removal time: 17:30 Results - Labs CBC & Chem 7: 02/07/18 15:45 02/07/18 15:45 Laboratory Results - last 24 hr 02/07/18 02/07/18 02/07/18 15:45 15:45 16:11 WBC 9.6 RBC 4.77 Hgb 12.6 Hct 40.1 MCV 84.0 MCH 26.4 L MCHC 31.5 L RDW 16.5 Plt Count 213 MPV 9.1 Neut % (Auto) 90.3 H Lymph % (Auto) 7.6 L Stanton % (Auto) 1.8 Eos % (Auto) 0.1 Baso % (Auto) 0.2 Neut # (Auto) 8.7 H Lymph # (Auto) 0.7 L Stanton # (Auto) 0.2 Eos # (Auto) 0.0 Baso # (Auto) 0.0 WBC Differential . Differential Comment Auto diff final Sodium 138 Potassium 4.6 Chloride 99 Carbon Dioxide 29.9 Anion Gap 9 BUN 13 Creatinine 0.78 Estimated GFR Greater than 89 POC Glucose 277 H Random Glucose 283 H Calcium 9.3 Phosphorus 3.5 Magnesium 2.2 Total Bilirubin 0.6 AST 31 ALT 91 H Alkaline Phosphatase 89 Total Protein 7.8 Albumin 3.5 02/07/18 02/08/18 02/08/18 21:53 04:09 07:38 WBC RBC Hgb Hct MCV MCH MCHC RDW Plt Count MPV Neut % (Auto) Lymph % (Auto) Stanton % (Auto) Eos % (Auto) Baso % (Auto) Neut # (Auto) Lymph # (Auto) Stanton # (Auto) Eos # (Auto) Baso # (Auto) WBC Differential Differential Comment Sodium Potassium Chloride Carbon Dioxide Anion Gap BUN Creatinine Estimated GFR POC Glucose 231 H 168 H 217 H Random Glucose Calcium Phosphorus Magnesium Total Bilirubin AST ALT Alkaline Phosphatase Total Protein Albumin 02/08/18 11:14 WBC RBC Hgb Hct MCV MCH MCHC RDW Plt Count MPV Neut % (Auto) Lymph % (Auto) Stanton % (Auto) Eos % (Auto) Baso % (Auto) Neut # (Auto) Lymph # (Auto) Stanton # (Auto) Eos # (Auto) Baso # (Auto) WBC Differential Differential Comment Sodium Potassium Chloride Carbon Dioxide Anion Gap BUN Creatinine Estimated GFR POC Glucose 161 H Random Glucose Calcium Phosphorus Magnesium Total Bilirubin AST ALT Alkaline Phosphatase Total Protein Albumin - Procedures none Assessment and Plan - Assessment (1) Neuromyelitis optica Code(s): G36.0 - Neuromyelitis optica [Devic] Status: Acute (2) Pulmonary embolism Code(s): I26.99 - Other pulmonary embolism without acute cor pulmonale Status : Acute (3) DM type 2 (diabetes mellitus, type 2) Code(s): E11.9 - Type 2 diabetes mellitus without complications Status: Acute - Plan 47-year-old female with a history of diabetes, 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 Neuromyelitis optica, transverse myelitis, paraplegia New complaints unable to feel with her hands- UE sensation and strength much improved - Returned from [facility] following a one-month stay there. - Continue prednisone 30mg daily, CellCept indefinitely per review of [facility] medical records. Once CellCept level therapeutic, may taper steroid. 02/07 GINNA Estrella. CellCept dose increased to 750mg BID. New CellCept level pending. - Bactrim Wednesday/Wednesday/Wednesday prophylactically. Monitor K level intermittently. - Continue physical therapy, Occupational Therapy - Hematology and neurology following - s/p IV Rituxin infusion 01/06 and 01/20 - no further treatment x 6 mos. F/U with Dr. Estrella. Diabetes mellitus, insulin-dependent HgA1C 7.9 (10/05/17) still having elevated BS in late afternoon - Increase Levemir to 34 u daily. Continue Levemir 25u nightly. - Continue prandial Novolog to 8u TIDAC - will obtain new HgbA1c level - Continue Glyburide 5mg BID - continue accucheks and ISS Hypertension, chronic essential, controlled - Continue metoprolol Anemia of chronic disease - H&H are stable and no further hematuria - Continue to monitor CBC as indicated Pulmonary embolus - restarted Eliquis-12/16 no plans for permacath anymore Right sided neck pain s/p Vas Cath removal - soft tissue US unremarkable Neurogenic bladder Urinary retention - Suprapubic catheter in place. Appreciate urology recommendations. - Suprapubic catheter exchange and upsizing 11/14 - SC changed 02/07 - routine care - and change q 4 weeks. Suprapubic cellulitis - SC changed early due to cellulitis. Continue Keflex po x 5 days. Chlorhexidine wipes BID. Nystatin BID. Monitor for improvement. Constipation +BM - Continue on PeriColace BID - Continue on Miralax BID scheduled - monitor BMs DVT prophylaxis Eliquis Discussed Condition With: patient, nursing staff, Dr. Mckeon Discharge Planning: Difficult placement. CM assists with ongoing discharge planning.
[2018-02-08] MEDS: Nortriptyline 10 MG Capsule PO SCH (21:43)
[2018-02-08 22:30] LABS: Hemoglobin A1c 8.4 % (4.3-6.0)
[2018-02-09] MEDS: Nystatin 100,000 UNITS/GM Powder 15 GM Bottle TOPICAL SCH ×3 (00:38→21:55)
[2018-02-09] MEDS: Calcium/Vitamin D 250/125 MG Tablet PO SCH (10:38)
[2018-02-09] MEDS: Gabapentin 300 MG Capsule PO SCH ×3 (10:39→17:46)
[2018-02-09] MEDS: Baclofen 10 MG Tablet PO SCH ×4 (10:40→21:44)
[2018-02-09] MEDS: Calcium Acetate 667 MG Capsule PO SCH ×3 (10:40→17:46)
[2018-02-09] MEDS: Ascorbic Acid 500 MG Tablet PO SCH (10:41)
[2018-02-09] MEDS: Insulin Detemir Inj 1,000 UNIT/10 ML Vial SQ SCH ×2 (10:42→21:43)
[2018-02-09] MEDS: Insulin NovoLOG Aspart Correctional Sugar Inj SQ SCH ×4 (10:43→21:43)
[2018-02-09] MEDS: Sulfamethoxazole/Trimethoprim 400/80 MG Tablet PO SCH (10:55)
[2018-02-09] MEDS: predniSONE 10 MG Tablet PO SCH (10:56)
[2018-02-09] MEDS: Polyethylene Glycol 3350 17 GM Packet PO SCH ×2 (10:58→21:55)
[2018-02-09] MEDS: Senna/Docusate Sodium 8.6/50 MG Tablet PO SCH ×2 (10:58→21:44)
--- NOTE | 2018-02-09 14:33 | P.PN ---
Subjective Interval history: Follow up on patient with Neuromyelitis optica, transverse myelitis, paraplegia. Patient seen and examined. Patient reports improvement in her suprapubic tenderness. She was able to wheel herself down the unit yesterday. She denies any fever or chills. She denies any cough, chest pain or dyspnea. She is afebrile. VSS. Physical Exam Vital signs: Vital Signs 02/08/18 16:00 02/08/18 20:00 02/09/18 00:00 Temperature 98.5 F 98.2 F 97.5 F L Pulse Rate 80 86 82 Respiratory Rate 20 18 20 Blood Pressure 133/80 122/82 99/54 L Pulse Oximetry 100 100 99 02/09/18 04:00 02/09/18 08:00 02/09/18 12:00 Temperature 97.8 F 98.0 F 97.7 F Pulse Rate 70 71 80 Respiratory Rate 20 12 12 Blood Pressure 135/78 123/70 120/78 Pulse Oximetry 98 100 99 Intake & Output 02/08/18 02/09/18 02/09/18 18:59 06:59 18:59 Output Total 1200 / 1200 2400 / 2400 Balance -1200 / -1200 -2400 / -2400 Output: Urine 1200 / 1200 2400 / 2400 Other: Date of Last Bowel Movement 02/08/18 # Bowel Movements 1 Narrative: GENERAL: WDWN female. Awake and alert. Appears comfortable. Sitting up chair. Not in any acute distress. SKIN: Warm and dry. HEENT: Atraumatic. Normocephalic. Pupils equal and round. No scleral icterus. No injection or drainage. No nasal bleeding or discharge. Mucous membranes pink and moist. NECK: Trachea midline. CARDIOVASCULAR: Regular rate and rhythm. RESPIRATORY: No accessory muscle use. Clear to auscultation anteriorly. Breath sounds equal bilaterally. GASTROINTESTINAL: Abdomen soft, non-tender, nondistended. +BS. MUSCULOSKELETAL: Extremities without clubbing, cyanosis. +Trace BLE edema. NEUROLOGICAL: Awake and alert. No obvious cranial nerve deficits. Decreased motor function bilateral UEs. BLE paresis. Normal speech. PSYCHIATRIC: Appropriate mood and affect; insight and judgment normal. - Urinary Catheter Management Suprapubic Cath placed during this visit: yes, but has since been removed by the nurse Reason for continuing: Chronic Urinary Retention Insertion date: 02/06/18 Insertion time: 17:30 Removal date: 02/06/18 Removal time: 17:30 Results - Labs CBC & Chem 7: 02/07/18 15:45 02/07/18 15:45 Laboratory Results - last 24 hr 02/08/18 02/08/18 02/08/18 17:22 20:54 Unknown POC Glucose 262 H 279 H Hemoglobin A1c 8.4 H 02/09/18 02/09/18 02/09/18 03:43 07:31 12:00 POC Glucose 151 H 131 H 187 H Hemoglobin A1c - Procedures none Assessment and Plan - Assessment (1) Neuromyelitis optica Code(s): G36.0 - Neuromyelitis optica [Devic] Status: Acute (2) Pulmonary embolism Code(s): I26.99 - Other pulmonary embolism without acute cor pulmonale Status : Acute (3) DM type 2 (diabetes mellitus, type 2) Code(s): E11.9 - Type 2 diabetes mellitus without complications Status: Acute - Plan 47-year-old female with a history of diabetes, 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 Neuromyelitis optica, transverse myelitis, paraplegia New complaints unable to feel with her hands- UE sensation and strength much improved - Returned from [facility] following a one-month stay there. - Continue prednisone 30mg daily, CellCept indefinitely per review of [facility] medical records. Once CellCept level therapeutic, may taper steroid. 02/07 GINNA Estrella. CellCept dose increased to 750mg BID. New CellCept level pending. - Bactrim Wednesday/Wednesday/Wednesday prophylactically. Monitor K level intermittently. - Continue physical therapy, Occupational Therapy - Hematology and neurology following - s/p IV Rituxin infusion 01/06 and 01/20 - no further treatment x 6 mos. F/U with Dr. Estrella. Diabetes mellitus, insulin-dependent HgA1C 7.9 (10/05/17) HgA1c 8.4 02/08 - Continue on Levemir 34 u daily. Continue Levemir 25u nightly. - Continue prandial Novolog to 8u TIDAC - Continue Glyburide 5mg BID - continue accucheks and ISS Hypertension, chronic essential, controlled - Continue metoprolol Anemia of chronic disease - H&H are stable and no further hematuria - Continue to monitor CBC as indicated Pulmonary embolus - restarted Eliquis-12/16 no plans for permacath anymore Right sided neck pain s/p Vas Cath removal - soft tissue US unremarkable Neurogenic bladder Urinary retention - Suprapubic catheter in place. Appreciate urology recommendations. - Suprapubic catheter exchange and upsizing 11/14 - SC changed 02/07 - routine care - and change q 4 weeks. Suprapubic cellulitis - SC changed early due to cellulitis. Continue Keflex po x 5 days. Chlorhexidine wipes BID. Nystatin BID. Monitor for improvement. Constipation +BM - Continue on PeriColace BID - Continue on Miralax BID scheduled - monitor BMs DVT prophylaxis Eliquis Discussed Condition With: patient, nursing staff, Dr. Mckeon Discharge Planning: Difficult placement. CM assists with ongoing discharge planning.
[2018-02-09 21:14] LABS: Mycophenolic Acid 1.1 mcg/mL (1.0 - 3.5)
[2018-02-09] MEDS: Nortriptyline 10 MG Capsule PO SCH (21:43)
[2018-02-09] MEDS: diazePAM 5 MG Tablet PO PRN (21:44)
[2018-02-10] MEDS: Insulin NovoLOG Aspart Correctional Sugar Inj SQ SCH ×4 (08:12→21:18)
[2018-02-10] MEDS: Insulin Detemir Inj 1,000 UNIT/10 ML Vial SQ SCH ×2 (08:26→21:19)
[2018-02-10] MEDS: Calcium/Vitamin D 250/125 MG Tablet PO SCH (08:28)
[2018-02-10] MEDS: predniSONE 10 MG Tablet PO SCH (08:28)
[2018-02-10] MEDS: Gabapentin 300 MG Capsule PO SCH ×3 (08:28→17:05)
[2018-02-10] MEDS: Calcium Acetate 667 MG Capsule PO SCH ×3 (08:28→17:06)
[2018-02-10] MEDS: Senna/Docusate Sodium 8.6/50 MG Tablet PO SCH ×2 (08:29→21:21)
[2018-02-10] MEDS: Ascorbic Acid 500 MG Tablet PO SCH (08:29)
[2018-02-10] MEDS: Baclofen 10 MG Tablet PO SCH ×4 (08:29→21:22)
[2018-02-10] MEDS: Polyethylene Glycol 3350 17 GM Packet PO SCH ×2 (08:30→21:20)
[2018-02-10] MEDS: Nystatin 100,000 UNITS/GM Powder 15 GM Bottle TOPICAL SCH ×2 (08:39→21:22)
--- NOTE | 2018-02-10 15:47 | P.PNIM ---
Subjective Interval history: Mrs. Friedman was afebrile with stable VS overnight. Patient states taht she is doing well overall at this time. She feels that she is improving with PT/OT. She states that she is having 2 BM/day on Miralax. Patient states that she was told there was slight blood around suprapubic catheter insertion site several days ago. She does not report any known bleeding, drainage, or abdominal pain currently. No reported chest pain or shortness of breath. Physical Exam Vital signs: Vital Signs 02/09/18 16:00 02/09/18 20:00 02/10/18 00:00 Temperature 97.9 F 98.1 F 98.1 F Pulse Rate 84 88 79 Respiratory Rate 12 17 16 Blood Pressure 126/86 138/65 127/75 Pulse Oximetry 100 97 99 02/10/18 04:00 02/10/18 08:00 02/10/18 12:00 Temperature 98.2 F 97.9 F 98.1 F Pulse Rate 72 77 79 Respiratory Rate 16 20 20 Blood Pressure 128/69 141/80 H 139/85 Pulse Oximetry 99 96 99 Intake & Output 02/09/18 02/10/18 02/10/18 18:59 06:59 18:59 Output Total 3200 / 3200 1800 / 1800 Balance -3200 / -3200 -1800 / -1800 Weight 112.2 kg Output: Urine 3200 / 3200 1800 / 1800 Other: Date of Last Bowel Movement 02/08/18 02/10/18 02/09/18 # Bowel Movements 1 Narrative: GENERAL: No acute distress. Sitting in bedside chariWDWN female , INAD. Awake and alert. Appears comfortable. Sitting up chair. SKIN: Warm and dry. Skin around suprapubic catheter appears normal; covered in cream without visible underlying erythema HEENT: EOM grossly I. MMM. CARDIOVASCULAR: Regular rate and rhythm; normal perfusion. RESPIRATORY: CTAB; normal rate GASTROINTESTINAL: Abdomen soft, non-tender, nondistended. +BS. : suprapubic catheter in place; no erythema, bleeding, or drainage visualized today. Yellowish urine in drainage bag MUSCULOSKELETAL: ROM and motor function grossly normal. Extremities without significant edema NEUROLOGICAL: Awake and alert. No obvious cranial nerve deficits. Decreased motor function bilateral UEs. BLE paresis. Normal speech. PSYCHIATRIC: Appropriate mood and affect; insight and judgment normal. - Urinary Catheter Management Suprapubic Cath placed during this visit: yes, but has since been removed by the nurse Reason for continuing: Chronic Urinary Retention Insertion date: 02/06/18 Insertion time: 17:30 Removal date: 02/06/18 Removal time: 17:30 Results - Labs CBC & Chem 7: 02/07/18 15:45 02/07/18 15:45 Laboratory Results - last 24 hr 02/07/18 02/09/18 02/09/18 15:45 17:44 21:30 POC Glucose 280 H 277 H Mycophenolic Acid 1.1 MPA Glucuronide 21 L 02/10/18 02/10/18 02/10/18 03:57 07:23 11:11 POC Glucose 166 H 118 H 191 H Mycophenolic Acid MPA Glucuronide - Procedures none Assessment and Plan - Assessment (1) Neuromyelitis optica Code(s): G36.0 - Neuromyelitis optica [Devic] Status: Acute (2) Pulmonary embolism Code(s): I26.99 - Other pulmonary embolism without acute cor pulmonale Status : Acute (3) DM type 2 (diabetes mellitus, type 2) Code(s): E11.9 - Type 2 diabetes mellitus without complications Status: Acute - Plan Mrs. 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 Per [facility] review of records, patient on Prednisone, Cellcept with plans to taper Prednisone when Cellcept therapeutic -Hematology following -Neurology following - s/p IV Rituxin infusion 01/06 and 01/20 - no further treatment x 6 mos. F/U with Dr. Estrella. -Prior provider discussed with Neuro 02/07- -MPA glucuronide 21 02/07 (low) -Continue Cellcept 750mg BID -Continue Prophylactic Bactrim three times weekly -Continue OT/PT Diabetes mellitus, insulin-dependent HgA1C 7.9 (10/05/17) HgA1c 8.4 02/08 - Continue on Levemir 34 u daily. Continue Levemir 25u nightly. - Continue prandial Novolog to 8u TIDAC - Continue Glyburide 5mg BID - continue accucheks and ISS Hypertension, chronic essential, controlled - Continue metoprolol Anemia of chronic disease - H&H are stable and no further hematuria - Continue to monitor CBC as indicated Pulmonary embolus - restarted Eliquis-12/16 no plans for permacath anymore Right sided neck pain s/p Vas Cath removal - soft tissue US unremarkable Neurogenic bladder Urinary retention - Suprapubic catheter in place. Appreciate urology recommendations. - Suprapubic catheter exchange and upsizing 11/14 - SC changed 02/07 - routine care - and change q 4 weeks. Suprapubic cellulitis - SC changed early due to cellulitis. -Continue Keflex po x 5 days (02/06-02/11) -Chlorhexidine wipes BID. -Nystatin BID. Constipation +BM - Continue on PeriColace BID - Continue on Miralax BID scheduled - monitor BMs GI PPX Pantoprazole 40mg DVT prophylaxis Eliquis
[2018-02-10] MEDS: Nortriptyline 10 MG Capsule PO SCH (21:21)
[2018-02-11] MEDS: Insulin Detemir Inj 1,000 UNIT/10 ML Vial SQ SCH ×2 (06:12→22:07)
[2018-02-11 07:00] LABS: Baso % (Auto) 0.3 % (0.0-2.0); Eos % (Auto) 0.4 % (0.0-4.0); Hematocrit 36.3 % (35.0-46.0); Hemoglobin 11.7 gm/dL (11.6-15.3); Lymph # (Auto) 2.7 th/mm3 (1.0-4.8); Lymph % (Auto) 36.6 % (9.0-44.0); Mean Corpuscular HGB Conc 32.1 % (32.0-36.0); Mean Corpuscular Hemoglobin 26.5 pg (27.0-34.0); Mean Corpuscular Volume 82.6 fL (80.0-100.0); Mean Platelet Volume 9.3 fL (7.0-11.0); Mono # (Auto) 0.6 th/mm3 (0.0-0.9); Mono % (Auto) 8.7 % (0.0-8.0); Platelet Count 200 th/mm3 (150-450); Red Blood Count 4.39 mil/mm3 (4.00-5.30); Red Cell Distribution Width 16.2 % (11.6-17.2); White Blood Count 7.4 th/mm3 (4.0-11.0)
[2018-02-11 07:10] LABS: Alanine Aminotransferase 93 U/L (10-53); Albumin 3.3 g/dL (3.4-5.0); Anion Gap 8 meq/L (5-15); Aspartate Aminotransferase 34 U/L (15-37); Calcium 9.1 mg/dL (8.5-10.1); Carbon Dioxide 30.8 meq/L (21.0-32.0); Chloride 102 meq/L (98-107); Glomerular Filtration Rate Greater Than 89 mL/min (>89); Glucose,Random 170 mg/dL (74-106); Potassium 3.9 meq/L (3.5-5.1); Sodium 141 meq/L (136-145)
[2018-02-11 07:20] LABS: Alkaline Phosphatase 86 U/L (45-117); Blood Urea Nitrogen 12 mg/dL (7-18); Total Protein 7.1 g/dL (6.4-8.2)
[2018-02-11] MEDS: Calcium Acetate 667 MG Capsule PO SCH ×3 (09:15→17:01)
[2018-02-11] MEDS: Baclofen 10 MG Tablet PO SCH ×4 (09:15→22:06)
[2018-02-11] MEDS: Senna/Docusate Sodium 8.6/50 MG Tablet PO SCH ×2 (09:15→22:06)
[2018-02-11] MEDS: Calcium/Vitamin D 250/125 MG Tablet PO SCH (09:15)
[2018-02-11] MEDS: Sulfamethoxazole/Trimethoprim 400/80 MG Tablet PO SCH (09:16)
[2018-02-11] MEDS: Ascorbic Acid 500 MG Tablet PO SCH (09:16)
[2018-02-11] MEDS: predniSONE 10 MG Tablet PO SCH (09:16)
[2018-02-11] MEDS: Polyethylene Glycol 3350 17 GM Packet PO SCH ×2 (09:16→22:06)
[2018-02-11] MEDS: Gabapentin 300 MG Capsule PO SCH ×3 (09:16→17:01)
[2018-02-11] MEDS: Insulin NovoLOG Aspart Correctional Sugar Inj SQ SCH ×4 (09:17→22:07)
[2018-02-11] MEDS: Nystatin 100,000 UNITS/GM Powder 15 GM Bottle TOPICAL SCH ×2 (09:18→22:08)
--- NOTE | 2018-02-11 18:55 | P.PNIM ---
Subjective Interval history: Mrs. Friedman was afebrile with stable VS overnight. She reports that she is doing well; no concerns at this time. She feels that she did well with therapy today. No chest pain, shortness of breath, or abnormal BM (2x daily). Patient has occasional LLQ pain which she states has improved from previously. Per nursing staff, susannahe was recommended by therapy provider to aid in patient's rehabilitation Physical Exam Vital signs: Vital Signs 02/10/18 20:00 02/11/18 00:00 02/11/18 04:00 Temperature 98.1 F 98.1 F 98.4 F Pulse Rate 90 87 95 H Respiratory Rate 20 16 20 Blood Pressure 146/85 H 127/66 100/57 L Pulse Oximetry 99 100 100 02/11/18 07:57 02/11/18 08:00 02/11/18 12:00 Temperature 98.2 F 97.9 F Pulse Rate 81 84 Respiratory Rate 16 20 20 Blood Pressure 136/72 122/77 Pulse Oximetry 96 100 02/11/18 16:00 Temperature 98.2 F Pulse Rate 82 Respiratory Rate 20 Blood Pressure 156/87 H Pulse Oximetry 98 Intake & Output 02/10/18 02/11/18 02/11/18 18:59 06:59 18:59 Intake Total 1920 / 1920 Output Total 3550 / 3550 3200 / 3200 3800 / 3800 Balance -3550 / -3550 -1280 / -1280 -3800 / -3800 Weight 111.9 kg Intake: Oral 1920 / 1920 Output: Urine 3550 / 3550 Urine Amount (Catheter) 3200 / 3200 3800 / 3800 Suprapubic 3200 / 3200 3800 / 3800 Other: Date of Last Bowel Movement 02/09/18 02/11/18 02/11/18 # Bowel Movements 1 1 Narrative: GENERAL: No acute distress. Sitting in bed SKIN: Warm and dry HEENT: EOM grossly I. MMM. CARDIOVASCULAR: Regular rate and rhythm; normal perfusion. RESPIRATORY: CTAB; normal rate GASTROINTESTINAL: Abdomen soft, non-tender, nondistended. +BS. : suprapubic catheter in place. not inspected today. Yellowish urine in drainage bag MUSCULOSKELETAL: ROM and motor function of upper extremities grossly normal. Extremities without significant edema NEUROLOGICAL: Awake and alert. No obvious cranial nerve deficits. Decreased motor function bilateral UEs. BLE paresis. Normal speech. PSYCHIATRIC: Appropriate mood and affect; insight and judgment normal. - Urinary Catheter Management Suprapubic Cath placed during this visit: yes, but has since been removed by the nurse Reason for continuing: Chronic Urinary Retention Insertion date: 02/06/18 Insertion time: 17:30 Removal date: 02/06/18 Removal time: 17:30 Results - Labs CBC & Chem 7: 02/11/18 06:01 02/11/18 06:01 Laboratory Results - last 24 hr 02/10/18 02/11/18 02/11/18 19:51 06:01 06:01 WBC 7.4 RBC 4.39 Hgb 11.7 Hct 36.3 MCV 82.6 MCH 26.5 L MCHC 32.1 RDW 16.2 Plt Count 200 MPV 9.3 Neut % (Auto) 54.0 Lymph % (Auto) 36.6 [place] % (Auto) 8.7 H Eos % (Auto) 0.4 Baso % (Auto) 0.3 Neut # (Auto) 4.0 Lymph # (Auto) 2.7 [place] # (Auto) 0.6 Eos # (Auto) 0.0 Baso # (Auto) 0.0 WBC Differential . Differential Comment Auto diff final Sodium 141 Potassium 3.9 Chloride 102 Carbon Dioxide 30.8 Anion Gap 8 BUN 12 Creatinine 0.59 Estimated GFR Greater than 89 POC Glucose 328 H Random Glucose 170 H Calcium 9.1 Total Bilirubin 0.4 AST 34 ALT 93 H Alkaline Phosphatase 86 Total Protein 7.1 D Albumin 3.3 L 02/11/18 02/11/18 02/11/18 06:10 07:26 11:23 WBC RBC Hgb Hct MCV MCH MCHC RDW Plt Count MPV Neut % (Auto) Lymph % (Auto) [place] % (Auto) Eos % (Auto) Baso % (Auto) Neut # (Auto) Lymph # (Auto) [place] # (Auto) Eos # (Auto) Baso # (Auto) WBC Differential Differential Comment Sodium Potassium Chloride Carbon Dioxide Anion Gap BUN Creatinine Estimated GFR POC Glucose 161 H 179 H 223 H Random Glucose Calcium Total Bilirubin AST ALT Alkaline Phosphatase Total Protein Albumin 02/11/18 16:43 WBC RBC Hgb Hct MCV MCH MCHC RDW Plt Count MPV Neut % (Auto) Lymph % (Auto) [place] % (Auto) Eos % (Auto) Baso % (Auto) Neut # (Auto) Lymph # (Auto) [place] # (Auto) Eos # (Auto) Baso # (Auto) WBC Differential Differential Comment Sodium Potassium Chloride Carbon Dioxide Anion Gap BUN Creatinine Estimated GFR POC Glucose 298 H Random Glucose Calcium Total Bilirubin AST ALT Alkaline Phosphatase Total Protein Albumin - Procedures none Assessment and Plan - Assessment (1) Neuromyelitis optica Code(s): G36.0 - Neuromyelitis optica [Devic] Status: Acute (2) Pulmonary embolism Code(s): I26.99 - Other pulmonary embolism without acute cor pulmonale Status : Acute (3) DM type 2 (diabetes mellitus, type 2) Code(s): E11.9 - Type 2 diabetes mellitus without complications Status: Acute - Plan Mrs. 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 Per [facility] review of records, patient on Prednisone, Cellcept with plans to taper Prednisone when Cellcept therapeutic -Hematology following -Neurology following - s/p IV Rituxin infusion 01/06 and 01/20 - no further treatment x 6 mos. F/U with Dr. Estrella. -Prior provider discussed with Neuro 02/07- -MPA glucuronide 21 02/07 (low) -Continue Cellcept 750mg BID -Continue Prophylactic Bactrim three times weekly -Continue OT/PT Diabetes mellitus, insulin-dependent HgA1C 7.9 (10/05/17) HgA1c 8.4 02/08 - Continue on Levemir 34 u daily. Will increase Levemir to 27u nightly. - Continue prandial Novolog to 8u TIDAC - Continue Glyburide 5mg BID - continue accucheks and ISS Hypertension, chronic essential, controlled - Continue metoprolol Anemia of chronic disease - H&H are stable and no further hematuria - Continue to monitor CBC as indicated Pulmonary embolus - restarted Eliquis-12/16 no plans for permacath anymore Right sided neck pain s/p Vas Cath removal - soft tissue US unremarkable Neurogenic bladder Urinary retention - Suprapubic catheter in place. Appreciate urology recommendations. - Suprapubic catheter exchange and upsizing 11/14 - SC changed 02/07 - routine care - and change q 4 weeks. Suprapubic cellulitis - SC changed early due to cellulitis. -Continue Keflex po x 5 days (02/06-02/11) -Chlorhexidine wipes BID. -Nystatin BID. Constipation +BM - Continue on PeriColace BID - Continue on Miralax BID scheduled - monitor BMs GI PPX Pantoprazole 40mg DVT prophylaxis Eliquis
[2018-02-11] MEDS: Nortriptyline 10 MG Capsule PO SCH (22:09)
[2018-02-11] MEDS: diphenhydrAMINE HCl 12.5 MG/5 ML Elixir UDC PO PRN (22:11)
[2018-02-11] MEDS ORDERED: Insulin Detemir Inj 1,000 UNIT/10 ML Vial SQ SCH (22:47)
[2018-02-12] MEDS: diazePAM 5 MG Tablet PO PRN (05:22)
[2018-02-12] MEDS: Insulin Detemir Inj 1,000 UNIT/10 ML Vial SQ SCH ×2 (06:37→22:21)
[2018-02-12] MEDS: Baclofen 10 MG Tablet PO SCH ×4 (08:49→21:57)
[2018-02-12] MEDS: predniSONE 10 MG Tablet PO SCH (08:49)
[2018-02-12] MEDS: Ascorbic Acid 500 MG Tablet PO SCH (08:50)
[2018-02-12] MEDS: Calcium/Vitamin D 250/125 MG Tablet PO SCH (08:50)
[2018-02-12] MEDS: Gabapentin 300 MG Capsule PO SCH ×3 (08:51→18:57)
[2018-02-12] MEDS: Senna/Docusate Sodium 8.6/50 MG Tablet PO SCH ×2 (08:51→21:56)
[2018-02-12] MEDS: Calcium Acetate 667 MG Capsule PO SCH ×3 (08:52→18:57)
[2018-02-12] MEDS: Nystatin 100,000 UNITS/GM Powder 15 GM Bottle TOPICAL SCH ×2 (08:52→22:13)
[2018-02-12] MEDS: Polyethylene Glycol 3350 17 GM Packet PO SCH ×2 (08:52→21:54)
[2018-02-12] MEDS: Insulin NovoLOG Aspart Correctional Sugar Inj SQ SCH ×4 (13:29→22:22)
--- NOTE | 2018-02-12 18:03 | P.PNIM ---
Subjective Interval history: Mrs. Friedman was afebrile with stable VS overnight. Per EMR review, glucose 64 this morning after Levemir increase to 27 U HS Patient reports bilateral back pain when laying down but states that it is improved when she sits up; it lasts for 10 minutes at a time before resolving. Patient eating well; normal bowel movements. No current concerns with suprapubic catheter. Physical Exam Vital signs: Vital Signs 02/11/18 20:00 02/12/18 00:00 02/12/18 04:00 Temperature 98 F 98 F 98.4 F Pulse Rate 87 98 H 94 H Respiratory Rate 20 18 18 Blood Pressure 143/78 H 132/60 120/64 Pulse Oximetry 100 98 97 02/12/18 08:00 02/12/18 12:00 02/12/18 16:00 Temperature 98.4 F 98.7 F 98.4 F Pulse Rate 89 91 H 93 H Respiratory Rate 16 16 16 Blood Pressure 113/67 132/71 121/82 Pulse Oximetry 99 100 99 Intake & Output 02/11/18 02/12/18 02/12/18 18:59 06:59 18:59 Intake Total 3000 / 3000 Output Total 3800 / 3800 2750 / 2750 1750 / 1750 Balance -3800 / -3800 250 / 250 -1750 / -1750 Weight 112.1 kg Intake: Oral 3000 / 3000 Output: Urine 2750 / 2750 Urine Amount (Catheter) 3800 / 3800 1750 / 1750 Suprapubic 3800 / 3800 1750 / 1750 Other: Date of Last Bowel Movement 02/11/18 02/11/18 02/12/18 Narrative: GENERAL: No acute distress. Sitting in bed SKIN: Warm and dry HEENT: EOM grossly I. MMM. CARDIOVASCULAR: Regular rate and rhythm; normal perfusion. RESPIRATORY: CTAB; normal rate GASTROINTESTINAL: Abdomen soft, non-tender, nondistended. Normal bowel sounds : suprapubic catheter in place. not inspected today. Yellowish urine in drainage bag MUSCULOSKELETAL: ROM and motor function of upper extremities grossly normal. No significant LE edema NEUROLOGICAL: Awake and alert. No obvious cranial nerve deficits. Grossly normal motor function bilateral UEs. BLE paresis. Normal speech. PSYCHIATRIC: Appropriate mood and affect; insight and judgment normal. - Urinary Catheter Management Suprapubic Cath placed during this visit: yes, but has since been removed by the nurse Reason for continuing: Chronic Urinary Retention Insertion date: 02/06/18 Insertion time: 17:30 Removal date: 02/06/18 Removal time: : Results - Labs CBC & Chem 7: 02/11/18 06:01 02/11/18 06:01 Laboratory Results - last 24 hr 02/11/18 02/12/18 02/12/18 20:19 03:05 09:00 POC Glucose 273 H 146 H 64 L 02/12/18 02/12/18 11:37 17:31 POC Glucose 146 H 361 H - Procedures none Assessment and Plan - Assessment (1) Neuromyelitis optica Code(s): G36.0 - Neuromyelitis optica [Devic] Status: Acute (2) Pulmonary embolism Code(s): I26.99 - Other pulmonary embolism without acute cor pulmonale Status : Acute (3) DM type 2 (diabetes mellitus, type 2) Code(s): E11.9 - Type 2 diabetes mellitus without complications Status: Acute - Plan Mrs. 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 Per [facility] review of records, patient on Prednisone, Cellcept with plans to taper Prednisone when Cellcept therapeutic -Hematology following -Neurology following - s/p IV Rituxin infusion 01/06 and 01/20 - no further treatment x 6 mos. F/U with Dr. Estrella. -Prior provider discussed with Neuro 02/07- -MPA glucuronide 21 02/07 (low) -Continue Cellcept 750mg BID -Continue Prophylactic Bactrim three times weekly -Continue OT/PT Diabetes mellitus Impression: insulin-dependent. HgA1C 7.9 (10/05/17)-> HgA1c 8.4 02/08 Glucose 64 this morning; 13 U Novolog SS yesterday, 12 U SS Novolog today - Will increase AM Levemir to 36 u daily. Will reduce Levemir to 25u nightly. - Continue prandial Novolog to 8u TIDAC - Continue Glyburide 5mg BID - continue accucheks and ISS Hypertension, chronic essential, controlled - Continue metoprolol Anemia of chronic disease - H&H are stable and no further hematuria - Continue to monitor CBC as indicated Pulmonary embolus - restarted Eliquis-12/16 no plans for permacath anymore Right sided neck pain s/p Vas Cath removal - soft tissue US unremarkable Neurogenic bladder Urinary retention - Suprapubic catheter in place. Appreciate urology recommendations. - Suprapubic catheter exchange and upsizing 11/14 - SC changed 02/07 - routine care - and change q 4 weeks. Suprapubic cellulitis - SC changed early due to cellulitis. -Continue Keflex po x 5 days (02/06-02/11) -Chlorhexidine wipes BID. -Nystatin BID. Constipation +BM - Continue on PeriColace BID - Continue on Miralax BID scheduled - monitor BMs GI PPX Pantoprazole 40mg DVT prophylaxis Elipatrickis
[2018-02-12] MEDS: Nortriptyline 10 MG Capsule PO SCH (21:57)
[2018-02-13] MEDS ORDERED: Insulin Detemir Inj 1,000 UNIT/10 ML Vial SQ SCH (07:00)
[2018-02-13] MEDS: Gabapentin 300 MG Capsule PO SCH ×3 (10:09→18:43)
[2018-02-13] MEDS: Baclofen 10 MG Tablet PO SCH ×4 (10:10→22:05)
[2018-02-13] MEDS: predniSONE 10 MG Tablet PO SCH (10:10)
[2018-02-13] MEDS: Calcium/Vitamin D 250/125 MG Tablet PO SCH (10:11)
[2018-02-13] MEDS: Calcium Acetate 667 MG Capsule PO SCH ×3 (10:11→18:43)
[2018-02-13] MEDS: Ascorbic Acid 500 MG Tablet PO SCH (10:12)
[2018-02-13] MEDS: Senna/Docusate Sodium 8.6/50 MG Tablet PO SCH ×2 (10:12→22:06)
[2018-02-13] MEDS: Polyethylene Glycol 3350 17 GM Packet PO SCH ×2 (10:13→22:06)
[2018-02-13] MEDS: Nystatin 100,000 UNITS/GM Powder 15 GM Bottle TOPICAL SCH ×2 (10:17→22:12)
[2018-02-13] MEDS: Insulin NovoLOG Aspart Correctional Sugar Inj SQ SCH ×4 (10:23→22:13)
--- NOTE | 2018-02-13 12:24 | P.PNIM ---
Subjective Interval history: Mrs. Friedman was afebrile with stable vital signs overnight. Patient reports some left sided abdominal pain occasionally. Patient reports that she has had some continued back pain which is positional when laying in bed. She has some concern for bladder infection due to symptoms. No reported shortness of breath. Normal bowel movements. Physical Exam Vital signs: Vital Signs 02/12/18 16:00 02/12/18 19:48 02/12/18 20:00 Temperature 98.4 F 97.5 F L Pulse Rate 93 H 80 Respiratory Rate 16 16 20 Blood Pressure 121/82 125/76 Pulse Oximetry 99 100 02/13/18 00:00 02/13/18 04:00 02/13/18 08:00 Temperature 97.5 F L 98.1 F 98.3 F Pulse Rate 79 95 H 84 Respiratory Rate 20 20 18 Blood Pressure 112/71 116/60 138/79 Pulse Oximetry 98 100 99 Intake & Output 02/12/18 02/13/18 02/13/18 18:59 06:59 18:59 Output Total 1750 / 1750 Balance -1750 / -1750 Output: Urine Amount (Catheter) 1750 / 1750 Suprapubic 1750 / 1750 Other: Date of Last Bowel Movement 02/12/18 02/12/18 Narrative: GENERAL: No acute distress SKIN: Warm and dry CARDIOVASCULAR: Regular rate and rhythm; normal perfusion. RESPIRATORY: CTAB; normal rate GASTROINTESTINAL: Abdomen soft, nondistended. Some mild LLQ tenderness. Normal bowel sounds : suprapubic catheter in place. not inspected today. Yellowish urine in drainage bag MUSCULOSKELETAL: ROM and motor function of upper extremities grossly normal. No significant LE edema NEUROLOGICAL: Awake and alert. No obvious cranial nerve deficits. Grossly normal motor function bilateral UEs. BLE paresis. Normal speech. PSYCHIATRIC: Appropriate mood and affect; insight and judgment normal. - Urinary Catheter Management Suprapubic Cath placed during this visit: yes, but has since been removed by the nurse Reason for continuing: Chronic Urinary Retention Insertion date: 02/06/18 Insertion time: 17:30 Removal date: 02/06/18 Removal time: 17:30 Results - Labs CBC & Chem 7: 02/11/18 06:01 02/11/18 06:01 Laboratory Results - last 24 hr 02/12/18 02/12/18 02/13/18 17:31 22:04 04:33 POC Glucose 361 H 218 H 265 H 02/13/18 02/13/18 08:17 11:53 POC Glucose 246 H 187 H - Procedures none Assessment and Plan - Assessment (1) Neuromyelitis optica Code(s): G36.0 - Neuromyelitis optica [Devic] Status: Acute (2) Pulmonary embolism Code(s): I26.99 - Other pulmonary embolism without acute cor pulmonale Status : Acute (3) DM type 2 (diabetes mellitus, type 2) Code(s): E11.9 - Type 2 diabetes mellitus without complications Status: Acute - Plan Mrs. 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 Per [facility] review of records, patient on Prednisone, Cellcept with plans to taper Prednisone when Cellcept therapeutic -Hematology following -Neurology following - s/p IV Rituxin infusion 01/06 and 01/20 - no further treatment x 6 mos. F/U with Dr. Estrella. -Prior provider discussed with Neuro 02/07- -MPA glucuronide 21 02/07 (low) -Continue Cellcept 750mg BID -Continue Prophylactic Bactrim three times weekly -Continue OT/PT Diabetes mellitus Impression: insulin-dependent. HgA1C 7.9 (10/05/17)-> HgA1c 8.4 02/08 16 U Novolog SS today - Will increase AM Levemir to 37 u daily. Will increase HS Levemir to 26u nightly. - Continue prandial Novolog to 8u TIDAC - Continue Glyburide 5mg BID - continue accucheks and ISS Hypertension, chronic essential, controlled - Continue metoprolol Anemia of chronic disease - H&H are stable and no further hematuria - Continue to monitor CBC as indicated Pulmonary embolus - restarted Eliquis-12/16 no plans for permacath anymore Right sided neck pain s/p Vas Cath removal - soft tissue US unremarkable Neurogenic bladder Urinary retention - Suprapubic catheter in place. Appreciate urology recommendations. - Suprapubic catheter exchange and upsizing 11/14 - SC changed 02/07 - routine care - and change q 4 weeks. -Will recheck UA due to L abdominal tenderness Suprapubic cellulitis - SC changed early due to cellulitis. -s/p Keflex po x 5 days (02/06-02/11) -Chlorhexidine wipes BID. -Nystatin BID. Constipation +BM - Continue on PeriColace BID - Continue on Miralax BID scheduled - monitor BMs GI PPX Pantoprazole 40mg DVT prophylaxis Eliquis
[2018-02-13] MEDS: Nortriptyline 10 MG Capsule PO SCH (22:06)
[2018-02-13] MEDS: Insulin Detemir Inj 1,000 UNIT/10 ML Vial SQ SCH (22:11)
[2018-02-14] MEDS: Polyethylene Glycol 3350 17 GM Packet PO SCH ×2 (09:15→21:51)
[2018-02-14] MEDS: Senna/Docusate Sodium 8.6/50 MG Tablet PO SCH ×2 (09:15→21:48)
[2018-02-14] MEDS: Ascorbic Acid 500 MG Tablet PO SCH (09:15)
[2018-02-14] MEDS: predniSONE 10 MG Tablet PO SCH (09:15)
[2018-02-14] MEDS: Baclofen 10 MG Tablet PO SCH ×4 (09:15→21:48)
[2018-02-14] MEDS: Calcium/Vitamin D 250/125 MG Tablet PO SCH (09:15)
[2018-02-14] MEDS: Gabapentin 300 MG Capsule PO SCH ×3 (09:16→18:23)
[2018-02-14] MEDS: Calcium Acetate 667 MG Capsule PO SCH ×3 (09:16→18:23)
[2018-02-14] MEDS: Sulfamethoxazole/Trimethoprim 400/80 MG Tablet PO SCH (09:16)
[2018-02-14] MEDS: Insulin NovoLOG Aspart Correctional Sugar Inj SQ SCH ×4 (09:17→22:04)
[2018-02-14] MEDS: Insulin Detemir Inj 1,000 UNIT/10 ML Vial SQ SCH ×2 (09:18→22:04)
[2018-02-14] MEDS: Nystatin 100,000 UNITS/GM Powder 15 GM Bottle TOPICAL SCH ×2 (09:19→22:09)
--- NOTE | 2018-02-14 19:31 | P.PNIM ---
Subjective Interval history: Mrs. Friedman was afebrile with stable VS overnight. Patient reports that she did well with therapy today and is making improvements. She still has some intermittent left lower abdominal pain. Patient also has back pain in certain positions; she was previously recommended to have heating pad as a treatment so would like one. No bowel changes. No reported chest pain, shortness of breath, or changes in oral intake. Physical Exam Vital signs: Vital Signs 02/13/18 20:00 02/14/18 00:00 02/14/18 04:00 Temperature 97.8 F 97.8 F 97.6 F Pulse Rate 86 94 H 91 H Respiratory Rate 16 16 16 Blood Pressure 103/59 L 148/96 H 134/89 Pulse Oximetry 94 L 95 94 L 02/14/18 08:00 02/14/18 12:00 02/14/18 16:00 Temperature 97.8 F 97.9 F 98 F Pulse Rate 76 86 88 Respiratory Rate 20 20 20 Blood Pressure 127/73 132/81 130/91 H Pulse Oximetry 96 100 100 Intake & Output 02/14/18 02/14/18 02/15/18 06:59 18:59 06:59 Intake Total 960 / 960 Output Total 3150 / 3150 Balance -2190 / -2190 Weight 112.6 kg Intake: Oral 960 / 960 Output: Urine 3150 / 3150 Other: Date of Last Bowel Movement 02/13/18 02/14/18 Narrative: GENERAL: No acute distress SKIN: Warm and dry CARDIOVASCULAR: Regular rate and rhythm; normal perfusion. RESPIRATORY: CTAB; normal rate GASTROINTESTINAL: Abdomen soft, nondistended. Some mild LLQ tenderness. Normal bowel sounds : suprapubic catheter in place MUSCULOSKELETAL: ROM and motor function of upper extremities grossly normal. No significant LE edema NEUROLOGICAL: Awake and alert. No obvious cranial nerve deficits. Grossly normal motor function bilateral UEs. BLE paresis. Normal speech. PSYCHIATRIC: Appropriate mood and affect; insight and judgment normal. 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 Per [facility] review of records, patient on Prednisone, Cellcept with plans to taper Prednisone when Cellcept therapeutic -Hematology following -Neurology following - s/p IV Rituxin infusion 01/06 and 01/20 - no further treatment x 6 mos. F/U with Dr. Estrella. -Prior provider discussed with Neuro 02/07- -MPA glucuronide 21 02/07 (low) -Continue Cellcept 750mg BID -Continue Prophylactic Bactrim three times weekly -Continue OT/PT Diabetes mellitus Impression: insulin-dependent. HgA1C 7.9 (10/05/17)-> HgA1c 8.4 02/08 16 U Novolog SS today - Will increase AM Levemir to 38 u daily. Continue HS Levemir to 26u nightly. - Continue prandial Novolog to 8u TIDAC - Continue Glyburide 5mg BID - continue accucheks and ISS Hypertension, chronic essential, controlled - Continue metoprolol Anemia of chronic disease - H&H are stable and no further hematuria - Continue to monitor CBC as indicated Pulmonary embolus - restarted Eliquis-12/16 no plans for permacath Right sided neck pain s/p Vas Cath removal - soft tissue US unremarkable Neurogenic bladder Urinary retention - Suprapubic catheter in place. Appreciate urology recommendations. - Suprapubic catheter exchange and upsizing 11/14 - SC changed 02/07 - routine care - and change q 4 weeks. -Will recheck UA due to L abdominal tenderness Suprapubic cellulitis - SC changed early due to cellulitis. -s/p Keflex po x 5 days (02/06-02/11) -Chlorhexidine wipes BID. -Nystatin BID. Constipation +BM - Continue on PeriColace BID - Continue on Miralax BID scheduled - monitor BMs GI PPX Pantoprazole 40mg DVT prophylaxis Eliquis
[2018-02-14] MEDS: Nortriptyline 10 MG Capsule PO SCH (21:48)
[2018-02-15] MEDS: Nystatin 100,000 UNITS/GM Powder 15 GM Bottle TOPICAL SCH ×2 (00:40→09:55)
[2018-02-15 04:14] LABS: Bacteria,Urine Rare /hpf; Bilirubin,Urine Negative (Negative); Clarity,Urine Hazy (Clear); Color,Urine Yellow (Yellw/Straw); Glucose,Urine (UA) Negative (Negative); Leukocyte Esterase,Urine Large (Negative); Mucus,Urine Few /lpf (Occasional); Nitrite,Urine Negative (Negative); Specific Gravity,Urine 1.013 (1.002-1.035); Squamous Epithelial Cell,Urine <1 /hpf (0-5)
[2018-02-15] MEDS: Ascorbic Acid 500 MG Tablet PO SCH (09:40)
[2018-02-15] MEDS: Calcium/Vitamin D 250/125 MG Tablet PO SCH (09:40)
[2018-02-15] MEDS: Baclofen 10 MG Tablet PO SCH ×4 (09:41→22:21)
[2018-02-15] MEDS: Gabapentin 300 MG Capsule PO SCH ×3 (09:42→18:04)
[2018-02-15] MEDS: Calcium Acetate 667 MG Capsule PO SCH ×3 (09:42→18:02)
[2018-02-15] MEDS: predniSONE 10 MG Tablet PO SCH (09:42)
[2018-02-15] MEDS: Insulin NovoLOG Aspart Correctional Sugar Inj SQ SCH ×4 (09:43→22:41)
[2018-02-15] MEDS: Senna/Docusate Sodium 8.6/50 MG Tablet PO SCH ×2 (09:43→22:22)
[2018-02-15] MEDS: Insulin Detemir Inj 1,000 UNIT/10 ML Vial SQ SCH ×2 (09:43→22:41)
[2018-02-15] MEDS: Polyethylene Glycol 3350 17 GM Packet PO SCH ×2 (09:43→22:23)
--- NOTE | 2018-02-15 17:50 | P.PN ---
Subjective Interval history: Patient seen sitting up in wheelchair. No new complaints. No nausea or vomiting. No fever or chills. Physical Exam Vital signs: Vital Signs 02/14/18 20:00 02/15/18 00:00 02/15/18 04:00 Temperature 98.1 F 97.9 F 97.9 F Pulse Rate 91 H 89 74 Respiratory Rate 18 18 18 Blood Pressure 127/84 119/79 162/86 H Pulse Oximetry 100 99 99 02/15/18 08:00 02/15/18 12:00 Temperature 98.1 F 97.7 F Pulse Rate 88 98 H Respiratory Rate 16 17 Blood Pressure 129/66 122/74 Pulse Oximetry 99 100 Intake & Output 02/14/18 02/15/18 02/15/18 18:59 06:59 18:59 Intake Total 960 / 960 Output Total 3150 / 3150 2099 Balance -2190 / -2190 -2099 -2099 Weight 114 kg Intake: Oral 960 / 960 Output: Urine 3150 / 3150 2099 Other: Date of Last Bowel Movement 02/14/18 02/14/18 02/13/18 Narrative: GENERAL: No acute distress SKIN: Warm and dry CARDIOVASCULAR: Regular rate and rhythm; normal perfusion. RESPIRATORY: CTAB; normal rate GASTROINTESTINAL: Abdomen soft, nondistended. Normal bowel sounds : suprapubic catheter in place MUSCULOSKELETAL: ROM and motor function of upper extremities grossly normal. No significant LE edema NEUROLOGICAL: Awake and alert. No obvious cranial nerve deficits. Grossly normal motor function bilateral UEs. BLE paresis. Normal speech. PSYCHIATRIC: Appropriate mood and affect; insight and judgment normal. - Urinary Catheter Management Suprapubic Cath placed during this visit: yes, but has since been removed by the nurse Reason for continuing: Chronic Urinary Retention Insertion date: 02/06/18 Insertion time: 17:30 Removal date: 02/06/18 Removal time: 17:30 Results - Labs CBC & Chem 7: 02/11/18 06:01 02/11/18 06:01 Laboratory Results - last 24 hr 02/14/18 02/15/18 02/15/18 21:42 03:40 05:02 POC Glucose 203 H 125 H Urine Color Yellow Urine Clarity Hazy H Urine pH 5.0 Ur Specific [place] 1.013 Urine Protein Negative Urine Glucose (UA) Negative Urine Ketones Negative Urine Occult Blood Moderate H Urine Nitrate Negative Urine Bilirubin Negative Urine Urobilinogen Less than 2 Ur Leukocyte Esterase Large H Urine RBC 43 H Urine WBC 48 H Ur Squamous Epith Cells <1 Urine Bacteria Rare H Urine Mucus Few H Micro UA Comment Culture indicated Ur Microscopic Review Not Reportable Urine Culture Comments Culture indicated 02/15/18 02/15/18 08:19 13:23 POC Glucose 291 H 138 H Urine Color Urine Clarity Urine pH Ur Specific [place] Urine Protein Urine Glucose (UA) Urine Ketones Urine Occult Blood Urine Nitrate Urine Bilirubin Urine Urobilinogen Ur Leukocyte Esterase Urine RBC Urine WBC Ur Squamous Epith Cells Urine Bacteria Urine Mucus Micro UA Comment Ur Microscopic Review Urine Culture Comments - Procedures none Assessment and Plan - Assessment (1) Neuromyelitis optica Code(s): G36.0 - Neuromyelitis optica [Devic] Status: Acute (2) Pulmonary embolism Code(s): I26.99 - Other pulmonary embolism without acute cor pulmonale Status : Acute (3) DM type 2 (diabetes mellitus, type 2) Code(s): E11.9 - Type 2 diabetes mellitus without complications Status: Acute - Plan Mrs. 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 Per [facility] review of records, patient on Prednisone, Cellcept with plans to taper Prednisone when Cellcept therapeutic -Hematology following -Neurology following - s/p IV Rituxin infusion 01/06 and 01/20 - no further treatment x 6 mos. F/U with Dr. Estrella. -Prior provider discussed with Neuro 02/07- -MPA glucuronide 21 02/07 (low) -Continue Cellcept 750mg BID -Continue Prophylactic Bactrim three times weekly -Continue OT/PT Diabetes mellitus Impression: insulin-dependent. HgA1C 7.9 (10/05/17)-> HgA1c 8.4 02/08 16 U Novolog SS today - Will increase AM Levemir to 38 u daily. Continue HS Levemir to 26u nightly. - Continue prandial Novolog to 8u TIDAC - Continue Glyburide 5mg BID - continue accucheks and ISS Hypertension, chronic essential, controlled - Continue metoprolol Anemia of chronic disease - H&H are stable and no further hematuria - Continue to monitor CBC as indicated Pulmonary embolus - restarted Eliquis-12/16 no plans for permacath Right sided neck pain s/p Vas Cath removal - soft tissue US unremarkable Neurogenic bladder Urinary retention - Suprapubic catheter in place. Appreciate urology recommendations. - Suprapubic catheter exchange and upsizing 11/14 - SC changed 02/07 - routine care - and change q 4 weeks. -UA Pending Suprapubic cellulitis - SC changed early due to cellulitis. -s/p Keflex po x 5 days (02/06-02/11) -Chlorhexidine wipes BID. -Nystatin BID. Constipation +BM - Continue on PeriColace BID - Continue on Miralax BID scheduled - monitor BMs GI PPX Pantoprazole 40mg DVT prophylaxis Eliquis
[2018-02-15] MEDS: diazePAM 5 MG Tablet PO PRN (18:03)
[2018-02-15] MEDS: Nortriptyline 10 MG Capsule PO SCH (22:21)
[2018-02-16] MEDS: Polyethylene Glycol 3350 17 GM Packet PO SCH ×2 (09:09→21:42)
[2018-02-16] MEDS: Baclofen 10 MG Tablet PO SCH ×4 (09:09→21:42)
[2018-02-16] MEDS: diazePAM 5 MG Tablet PO PRN ×2 (09:10→18:55)
[2018-02-16] MEDS: predniSONE 10 MG Tablet PO SCH (09:10)
[2018-02-16] MEDS: Ascorbic Acid 500 MG Tablet PO SCH (09:10)
[2018-02-16] MEDS: Senna/Docusate Sodium 8.6/50 MG Tablet PO SCH ×2 (09:11→21:43)
[2018-02-16] MEDS: Gabapentin 300 MG Capsule PO SCH ×3 (09:11→18:53)
[2018-02-16] MEDS: Calcium Acetate 667 MG Capsule PO SCH ×3 (09:11→18:58)
[2018-02-16] MEDS: Calcium/Vitamin D 250/125 MG Tablet PO SCH (09:11)
[2018-02-16] MEDS: Insulin NovoLOG Aspart Correctional Sugar Inj SQ SCH ×4 (09:31→21:40)
[2018-02-16] MEDS: Insulin Detemir Inj 1,000 UNIT/10 ML Vial SQ SCH ×2 (09:31→21:41)
[2018-02-16] MEDS: Nystatin 100,000 UNITS/GM Powder 15 GM Bottle TOPICAL SCH ×2 (11:10→21:44)
[2018-02-16] MEDS: Sulfamethoxazole/Trimethoprim 400/80 MG Tablet PO SCH (11:26)
--- NOTE | 2018-02-16 15:54 | US ---
EXAM DATE: 02/16/2018 12:00 AM EDT AGE/SEX: 47 years / Female INDICATIONS: Left groin pain. CLINICAL DATA: This is the patient's initial encounter. Patient reports that signs and symptoms have been present for 3 days and indicates a pain score of 5/10. MEDICAL/SURGICAL HISTORY: None. None. COMPARISON: No prior exams available for comparison. FINDINGS: Focused ultrasound examination of the left groin demonstrates no focal abnormality. Specifically, the re is no focal fluid collection or mass. CONCLUSION: 1. Unremarkable focused ultrasound examination of the left groin. Electronically signed by: Alexis Diaz MD 02/16/2018 3:52 PM EDT
--- NOTE | 2018-02-16 18:49 | P.PN ---
Subjective Interval history: Patient is seen sitting up in bed watching TV. She does report left groin pain- describes it as being "just under the skin". Otherwise well with no new complaints. Physical Exam Vital signs: Vital Signs 02/15/18 20:00 02/16/18 00:00 02/16/18 04:00 Temperature 97.9 F 97.7 F 97.7 F Pulse Rate 91 H 84 78 Respiratory Rate 18 18 18 Blood Pressure 132/82 133/76 142/73 H Pulse Oximetry 99 100 100 02/16/18 08:00 02/16/18 12:00 02/16/18 16:00 Temperature 98 F 98.2 F 98 F Pulse Rate 87 97 H 80 Respiratory Rate 18 Blood Pressure 120/63 164/82 H 160/84 H Pulse Oximetry 98 99 100 Intake & Output 02/15/18 02/16/18 02/16/18 18:59 06:59 18:59 Intake Total 2280 / 2280 Output Total 2150 / 2150 1999 Balance 130 / 130 -1999 -1999 Weight 114 kg Intake: Oral 2280 / 2280 Output: Urine 2150 / 2150 1999 Other: Date of Last Bowel Movement 02/15/18 02/15/18 02/15/18 # Bowel Movements 1 Narrative: GENERAL: No acute distress SKIN: Warm and dry CARDIOVASCULAR: Regular rate and rhythm; normal perfusion. RESPIRATORY: CTAB; normal rate GASTROINTESTINAL: Abdomen soft, nondistended. Normal bowel sounds : suprapubic catheter in place. Left groin skin intact with no obvious erythema or swelling. Groin tender to light palpation, unable to appreciate any lymph enlargement. MUSCULOSKELETAL: ROM and motor function of upper extremities grossly normal. No significant LE edema NEUROLOGICAL: Awake and alert. No obvious cranial nerve deficits. Grossly normal motor function bilateral UEs. BLE paresis. Normal speech. PSYCHIATRIC: Appropriate mood and affect; insight and judgment normal. - Urinary Catheter Management Suprapubic Cath placed during this visit: yes, but has since been removed by the nurse Reason for continuing: Chronic Urinary Retention Insertion date: 02/06/18 Insertion time: 17:30 Removal date: 02/06/18 Removal time: 17:30 Results - Labs CBC & Chem 7: 02/17/18 05:33 02/17/18 05:33 Laboratory Results - last 24 hr 02/15/18 02/15/18 02/16/18 03:40 22:18 03:46 POC Glucose 258 H 102 Urine Color Yellow Urine Clarity Hazy H Urine pH 5.0 Ur Specific [place] 1.013 Urine Protein Negative Urine Glucose (UA) Negative Urine Ketones Negative Urine Occult Blood Moderate H Urine Nitrate Negative Urine Bilirubin Negative Urine Urobilinogen Less than 2 Ur Leukocyte Esterase Large H Urine RBC 43 H Urine WBC 48 H Ur Squamous Epith Cells <1 Urine Bacteria Rare H Urine Mucus Few H Micro UA Comment Culture indicated Urine Culture Comments Culture indicated 02/16/18 02/16/18 02/16/18 09:06 11:09 18:47 POC Glucose 207 H 235 H 284 H Urine Color Urine Clarity Urine pH Ur Specific [place] Urine Protein Urine Glucose (UA) Urine Ketones Urine Occult Blood Urine Nitrate Urine Bilirubin Urine Urobilinogen Ur Leukocyte Esterase Urine RBC Urine WBC Ur Squamous Epith Cells Urine Bacteria Urine Mucus Micro UA Comment Urine Culture Comments Microbiology 02/15/18 03:40 Suprapubic Urine Urine Culture - Preliminary Group D Enterococcus - Imaging Impressions Lower Extremity Ultrasound 02/16/18 00:00 CONCLUSION: 1. Unremarkable focused ultrasound examination of the left groin. 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 Will evaluate left groin with ultrasound. Continue remainder of medical plan. Neuromyelitis optica, transverse myelitis, paraplegia Impression: Returned from [facility] following a one-month stay there. Per [facility] review of records, patient on Prednisone, Cellcept with plans to taper Prednisone when Cellcept therapeutic -Hematology following -Neurology following - s/p IV Rituxin infusion 01/06 and 01/20 - no further treatment x 6 mos. F/U with Dr. Estrella. -Prior provider discussed with Neuro 02/07- -MPA glucuronide 21 02/07 (low) -Continue Cellcept 750mg BID -Continue Prophylactic Bactrim three times weekly -Continue OT/PT Diabetes mellitus Impression: insulin-dependent. HgA1C 7.9 (10/05/17)-> HgA1c 8.4 02/08 16 U Novolog SS today - Will increase AM Levemir to 38 u daily. Continue HS Levemir to 26u nightly. - Continue prandial Novolog to 8u TIDAC - Continue Glyburide 5mg BID - continue accucheks and ISS Hypertension, chronic essential, controlled - Continue metoprolol Anemia of chronic disease - H&H are stable and no further hematuria - Continue to monitor CBC as indicated Pulmonary embolus - restarted Eliquis-12/16 no plans for permacath Right sided neck pain s/p Vas Cath removal - soft tissue US unremarkable Neurogenic bladder Urinary retention - Suprapubic catheter in place. Appreciate urology recommendations. - Suprapubic catheter exchange and upsizing 11/14 - SC changed 02/07 - routine care - and change q 4 weeks. -UA Pending Suprapubic cellulitis - SC changed early due to cellulitis. -s/p Keflex po x 5 days (02/06-02/11) -Chlorhexidine wipes BID. -Nystatin BID. Constipation +BM - Continue on PeriColace BID - Continue on Miralax BID scheduled - monitor BMs GI PPX Pantoprazole 40mg DVT prophylaxis Eliquis
[2018-02-16] MEDS: diphenhydrAMINE HCl 12.5 MG/5 ML Elixir UDC PO PRN (21:40)
[2018-02-16] MEDS: Nortriptyline 10 MG Capsule PO SCH (21:42)
[2018-02-17 05:53] LABS: Baso % (Auto) 0.2 % (0.0-2.0); Eos % (Auto) 0.3 % (0.0-4.0); Hematocrit 36.4 % (35.0-46.0); Hemoglobin 11.8 gm/dL (11.6-15.3); Lymph # (Auto) 2.8 th/mm3 (1.0-4.8); Lymph % (Auto) 34.1 % (9.0-44.0); Mean Corpuscular HGB Conc 32.4 % (32.0-36.0); Mean Corpuscular Hemoglobin 26.4 pg (27.0-34.0); Mean Corpuscular Volume 81.4 fL (80.0-100.0); Mean Platelet Volume 8.7 fL (7.0-11.0); Mono # (Auto) 0.8 th/mm3 (0.0-0.9); Mono % (Auto) 9.3 % (0.0-8.0); Neut # (Auto) 4.6 th/mm3 (1.8-7.7); Neut % (Auto) 56.1 % (16.0-70.0); Platelet Count 212 th/mm3 (150-450); Red Blood Count 4.48 mil/mm3 (4.00-5.30); Red Cell Distribution Width 16.2 % (11.6-17.2); White Blood Count 8.2 th/mm3 (4.0-11.0)
[2018-02-17] MEDS: Insulin Detemir Inj 1,000 UNIT/10 ML Vial SQ SCH ×2 (06:09→21:39)
[2018-02-17 06:19] LABS: Anion Gap 7 meq/L (5-15); Blood Urea Nitrogen 13 mg/dL (7-18); Calcium 8.9 mg/dL (8.5-10.1); Carbon Dioxide 30.9 meq/L (21.0-32.0); Chloride 100 meq/L (98-107); Glomerular Filtration Rate Greater Than 89 mL/min (>89); Glucose,Random 149 mg/dL (74-106); Potassium 3.8 meq/L (3.5-5.1); Sodium 138 meq/L (136-145)
[2018-02-17] MEDS: Insulin NovoLOG Aspart Correctional Sugar Inj SQ SCH ×4 (10:00→21:38)
[2018-02-17] MEDS: Calcium/Vitamin D 250/125 MG Tablet PO SCH (10:00)
[2018-02-17] MEDS: predniSONE 10 MG Tablet PO SCH (10:00)
[2018-02-17] MEDS: Calcium Acetate 667 MG Capsule PO SCH ×3 (10:00→17:54)
[2018-02-17] MEDS: Ascorbic Acid 500 MG Tablet PO SCH (10:00)
[2018-02-17] MEDS: Gabapentin 300 MG Capsule PO SCH ×3 (10:00→17:54)
[2018-02-17] MEDS: Baclofen 10 MG Tablet PO SCH ×4 (10:00→21:35)
[2018-02-17] MEDS: Senna/Docusate Sodium 8.6/50 MG Tablet PO SCH ×2 (10:00→21:35)
[2018-02-17] MEDS: Polyethylene Glycol 3350 17 GM Packet PO SCH ×2 (10:00→21:49)
[2018-02-17] MEDS: Nystatin 100,000 UNITS/GM Powder 15 GM Bottle TOPICAL SCH ×2 (12:32→21:42)
--- NOTE | 2018-02-17 15:24 | P.PN ---
Subjective Interval history: Patient seen sitting in bed watching TV. Continues to have some left-sided groin pain. Denies the pain is being muscular or feeling like it is coming from the hip bone. No radiation of pain. Manageable on current medications. No other new complaints. Physical Exam Vital signs: Vital Signs 02/16/18 16:00 02/16/18 20:00 02/17/18 00:00 Temperature 98 F 98 F 98.1 F Pulse Rate 80 83 87 Respiratory Rate 18 18 18 Blood Pressure 160/84 H 129/81 127/78 Pulse Oximetry 100 96 96 02/17/18 08:00 02/17/18 12:00 Temperature 98.2 F 98.0 F Pulse Rate 87 92 H Respiratory Rate 16 20 Blood Pressure 128/81 121/80 Pulse Oximetry 97 100 Intake & Output 02/16/18 02/17/18 02/17/18 18:59 06:59 18:59 Output Total 1999 3650 / 3650 1000 / 1000 Balance -2000 / -2000 -3650 / -3650 -1000 / -1000 Output: Urine 1999 Urine Amount (Catheter) 3650 / 3650 1000 / 1000 Suprapubic 3650 / 3650 1000 / 1000 Other: Date of Last Bowel Movement 02/16/18 02/16/18 # Bowel Movements 1 Narrative: GENERAL: No acute distress SKIN: Warm and dry CARDIOVASCULAR: Regular rate and rhythm; normal perfusion. RESPIRATORY: CTAB; normal rate GASTROINTESTINAL: Abdomen soft, nondistended. Normal bowel sounds : suprapubic catheter in place. Left groin skin intact with no obvious erythema or swelling. Groin tender to light palpation, unable to appreciate any lymph enlargement. MUSCULOSKELETAL: ROM and motor function of upper extremities grossly normal. No significant LE edema NEUROLOGICAL: Awake and alert. No obvious cranial nerve deficits. Grossly normal motor function bilateral UEs. BLE paresis. Normal speech. PSYCHIATRIC: Appropriate mood and affect; insight and judgment normal. - Urinary Catheter Management Suprapubic Cath placed during this visit: yes, but has since been removed by the nurse Reason for continuing: Chronic Urinary Retention Insertion date: 02/06/18 Insertion time: 17:30 Removal date: 02/06/18 Removal time: 17:30 Results - Labs CBC & Chem 7: 02/17/18 05:33 02/17/18 05:33 Laboratory Results - last 24 hr 02/16/18 02/16/18 02/17/18 18:47 21:38 03:22 WBC RBC Hgb Hct MCV MCH MCHC RDW Plt Count MPV Neut % (Auto) Lymph % (Auto) [place] % (Auto) Eos % (Auto) Baso % (Auto) Neut # (Auto) Lymph # (Auto) [place] # (Auto) Eos # (Auto) Baso # (Auto) WBC Differential Differential Comment Sodium Potassium Chloride Carbon Dioxide Anion Gap BUN Creatinine Estimated GFR POC Glucose 284 H 239 H 171 H Random Glucose Calcium 02/17/18 02/17/18 02/17/18 05:33 05:33 08:34 WBC 8.2 RBC 4.48 Hgb 11.8 Hct 36.4 MCV 81.4 MCH 26.4 L MCHC 32.4 RDW 16.2 Plt Count 212 MPV 8.7 Neut % (Auto) 56.1 Lymph % (Auto) 34.1 [place] % (Auto) 9.3 H Eos % (Auto) 0.3 Baso % (Auto) 0.2 Neut # (Auto) 4.6 Lymph # (Auto) 2.8 [place] # (Auto) 0.8 Eos # (Auto) 0.0 Baso # (Auto) 0.0 WBC Differential . Differential Comment Auto diff final Sodium 138 Potassium 3.8 Chloride 100 Carbon Dioxide 30.9 Anion Gap 7 BUN 13 Creatinine 0.62 Estimated GFR Greater than 89 POC Glucose 178 H Random Glucose 149 H Calcium 8.9 02/17/18 12:48 WBC RBC Hgb Hct MCV MCH MCHC RDW Plt Count MPV Neut % (Auto) Lymph % (Auto) [place] % (Auto) Eos % (Auto) Baso % (Auto) Neut # (Auto) Lymph # (Auto) [place] # (Auto) Eos # (Auto) Baso # (Auto) WBC Differential Differential Comment Sodium Potassium Chloride Carbon Dioxide Anion Gap BUN Creatinine Estimated GFR POC Glucose 118 H Random Glucose Calcium Microbiology 02/15/18 03:40 Suprapubic Urine Urine Culture - Final Enterococcus faecalis - Imaging Impressions Lower Extremity Ultrasound 02/16/18 00:00 CONCLUSION: 1. Unremarkable focused ultrasound examination of the left groin. 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 Continue current medical plan. Neuromyelitis optica, transverse myelitis, paraplegia Impression: Returned from [facility] following a one-month stay there. Per [facility] review of records, patient on Prednisone, Cellcept with plans to taper Prednisone when Cellcept therapeutic -Hematology following -Neurology following - s/p IV Rituxin infusion 01/06 and 01/20 - no further treatment x 6 mos. F/U with Dr. Estrella. -Prior provider discussed with Neuro 02/07- -MPA glucuronide 21 02/07 (low) -Continue Cellcept 750mg BID -Continue Prophylactic Bactrim three times weekly -Continue OT/PT Diabetes mellitus Impression: insulin-dependent. HgA1C 7.9 (10/05/17)-> HgA1c 8.4 02/08 16 U Novolog SS today - Will increase AM Levemir to 38 u daily. Continue HS Levemir to 26u nightly. - Continue prandial Novolog to 8u TIDAC - Continue Glyburide 5mg BID - continue accucheks and ISS Hypertension, chronic essential, controlled - Continue metoprolol Anemia of chronic disease - H&H are stable and no further hematuria - Continue to monitor CBC as indicated Pulmonary embolus - restarted Eliquis-12/16 no plans for permacath Right sided neck pain s/p Vas Cath removal - soft tissue US unremarkable Neurogenic bladder Urinary retention - Suprapubic catheter in place. Appreciate urology recommendations. - Suprapubic catheter exchange and upsizing 11/14 - SC change q 4 weeks. - 02/16 UA positive; started ampicillin. Will order catheter change. -Suspect left-sided groin pain related to infection; soft tissue ultrasound done 02/16 was negative. Suprapubic cellulitis - SC changed early due to cellulitis. -s/p Keflex po x 5 days (02/06-02/11) -Chlorhexidine wipes BID. -Nystatin BID. Constipation +BM - Continue on PeriColace BID - Continue on Miralax BID scheduled - monitor BMs GI PPX Pantoprazole 40mg DVT prophylaxis Eliquis
[2018-02-17] MEDS: Nortriptyline 10 MG Capsule PO SCH (21:35)
[2018-02-18] MEDS: Insulin Detemir Inj 1,000 UNIT/10 ML Vial SQ SCH ×2 (09:46→22:33)
[2018-02-18] MEDS: Insulin NovoLOG Aspart Correctional Sugar Inj SQ SCH ×4 (09:47→22:33)
[2018-02-18] MEDS: Calcium Acetate 667 MG Capsule PO SCH ×3 (09:53→18:30)
[2018-02-18] MEDS: Sulfamethoxazole/Trimethoprim 400/80 MG Tablet PO SCH (09:54)
[2018-02-18] MEDS: predniSONE 10 MG Tablet PO SCH (09:54)
[2018-02-18] MEDS: Polyethylene Glycol 3350 17 GM Packet PO SCH ×2 (09:56→22:37)
[2018-02-18] MEDS: Baclofen 10 MG Tablet PO SCH ×4 (09:56→22:05)
[2018-02-18] MEDS: Nystatin 100,000 UNITS/GM Powder 15 GM Bottle TOPICAL SCH ×2 (09:57→22:37)
[2018-02-18] MEDS: Calcium/Vitamin D 250/125 MG Tablet PO SCH (09:58)
[2018-02-18] MEDS: Gabapentin 300 MG Capsule PO SCH ×3 (09:58→18:30)
[2018-02-18] MEDS: Senna/Docusate Sodium 8.6/50 MG Tablet PO SCH ×2 (09:59→22:06)
[2018-02-18] MEDS: Ascorbic Acid 500 MG Tablet PO SCH (10:00)
--- NOTE | 2018-02-18 15:33 | P.PN ---
Subjective Interval history: Patient is seen sitting up in room. She tells me her catheter has not been changed but that is planned for today. Still having some groin pain however it has not changed. Tells me that she has the pain most often when they are cleaning her up. No other complaints or concerns. No fevers or chills. Physical Exam Vital signs: Vital Signs 02/17/18 16:00 02/17/18 20:00 02/18/18 00:00 Temperature 97.7 F 98.3 F 97.7 F Pulse Rate 77 82 77 Respiratory Rate 16 16 16 Blood Pressure 138/66 137/83 104/64 Pulse Oximetry 98 95 100 02/18/18 04:00 02/18/18 08:00 Temperature 97.7 F 98.2 F Pulse Rate 70 80 Respiratory Rate 14 18 Blood Pressure 141/75 H 121/85 Pulse Oximetry 97 99 Intake & Output 02/17/18 02/18/18 02/18/18 18:59 06:59 18:59 Output Total 1000 / 1000 2300 / 2300 Balance -1000 / -1000 -2300 / -2300 Weight 114 kg Output: Urine Amount (Catheter) 1000 / 1000 2300 / 2300 Suprapubic 1000 / 1000 2300 / 2300 Other: Date of Last Bowel Movement 02/16/18 02/17/18 # Bowel Movements 1 Narrative: GENERAL: No acute distress SKIN: Warm and dry CARDIOVASCULAR: Regular rate and rhythm; normal perfusion. RESPIRATORY: CTAB; normal rate GASTROINTESTINAL: Abdomen soft, nondistended. Normal bowel sounds : suprapubic catheter in place. Left groin skin intact with no obvious erythema or swelling. Groin tender to light palpation, unable to appreciate any lymph enlargement. MUSCULOSKELETAL: ROM and motor function of upper extremities grossly normal. No significant LE edema NEUROLOGICAL: Awake and alert. No obvious cranial nerve deficits. Grossly normal motor function bilateral UEs. BLE paresis. Normal speech. PSYCHIATRIC: Appropriate mood and affect; insight and judgment normal. 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 Continue current medical plan. Suprapubic catheter to be changed today due to new UTI. Neuromyelitis optica, transverse myelitis, paraplegia Impression: Returned from [facility] [place] following a one-month stay there. Per [facility] review of records, patient on Prednisone, Cellcept with plans to taper Prednisone when Cellcept therapeutic -Hematology following -Neurology following - s/p IV Rituxin infusion 01/06 and 01/20 - no further treatment x 6 mos. F/U with Dr. Estrella. -Prior provider discussed with Neuro 02/07- -MPA glucuronide 21 02/07 (low) -Continue Cellcept 750mg BID -Continue Prophylactic Bactrim three times weekly -Continue OT/PT Diabetes mellitus Impression: insulin-dependent. HgA1C 7.9 (10/05/17)-> HgA1c 8.4 02/08 16 U Novolog SS today - Will increase AM Levemir to 38 u daily. Continue HS Levemir to 26u nightly. - Continue prandial Novolog to 8u TIDAC - Continue Glyburide 5mg BID - continue accucheks and ISS Hypertension, chronic essential, controlled - Continue metoprolol Anemia of chronic disease - H&H are stable and no further hematuria - Continue to monitor CBC as indicated Pulmonary embolus - restarted Eliquis-12/16 no plans for permacath Right sided neck pain s/p Vas Cath removal - soft tissue US unremarkable Neurogenic bladder Urinary retention - Suprapubic catheter in place. Appreciate urology recommendations. - Suprapubic catheter exchange and upsizing 11/14 - SC change q 4 weeks. - 02/16 UA positive; started ampicillin. Will order catheter change. -Suspect left-sided groin pain related to infection; soft tissue ultrasound done 02/16 was negative. Suprapubic cellulitis - SC changed early due to cellulitis. -s/p Keflex po x 5 days (02/06-02/11) -Chlorhexidine wipes BID. -Nystatin BID. Constipation +BM - Continue on PeriColace BID - Continue on Miralax BID scheduled - monitor BMs GI PPX Pantoprazole 40mg DVT prophylaxis Eliquis
[2018-02-18] MEDS: Nortriptyline 10 MG Capsule PO SCH (22:05)
[2018-02-19] MEDS: predniSONE 10 MG Tablet PO SCH (08:05)
[2018-02-19] MEDS: Polyethylene Glycol 3350 17 GM Packet PO SCH ×2 (08:05→23:17)
[2018-02-19] MEDS: Baclofen 10 MG Tablet PO SCH ×4 (08:06→23:17)
[2018-02-19] MEDS: Calcium Acetate 667 MG Capsule PO SCH ×3 (08:06→18:14)
[2018-02-19] MEDS: Calcium/Vitamin D 250/125 MG Tablet PO SCH (08:06)
[2018-02-19] MEDS: Senna/Docusate Sodium 8.6/50 MG Tablet PO SCH ×2 (08:06→23:17)
[2018-02-19] MEDS: Ascorbic Acid 500 MG Tablet PO SCH (08:06)
[2018-02-19] MEDS: Insulin Detemir Inj 1,000 UNIT/10 ML Vial SQ SCH (08:07)
[2018-02-19] MEDS: Gabapentin 300 MG Capsule PO SCH ×3 (08:07→18:13)
[2018-02-19] MEDS: Insulin NovoLOG Aspart Correctional Sugar Inj SQ SCH ×3 (08:08→18:14)
--- NOTE | 2018-02-19 12:36 | P.PN ---
Subjective Interval history: Patient seen sitting up in bed finishing breakfast. She tells me they did not change her suprapubic catheter yesterday because the wrong one today. Not currently having any groin pain. No fevers or chills. No nausea vomiting or diarrhea. Physical Exam Vital signs: Vital Signs 02/18/18 16:00 02/18/18 20:00 02/19/18 00:00 Temperature 97.7 F 98.5 F 98.2 F Pulse Rate 84 95 H 90 Respiratory Rate 16 20 16 Blood Pressure 127/81 136/74 130/86 Pulse Oximetry 96 99 100 02/19/18 04:00 02/19/18 08:00 02/19/18 12:00 Temperature 98.1 F 97.7 F 98.3 F Pulse Rate 75 86 85 Respiratory Rate 16 18 18 Blood Pressure 137/81 127/84 125/82 Pulse Oximetry 100 99 99 Intake & Output 02/18/18 02/19/18 02/19/18 18:59 06:59 18:59 Intake Total 1000 / 1000 Balance 1000 / 1000 Weight 114 kg Intake: Oral 1000 / 1000 Other: Date of Last Bowel Movement 02/16/18 02/17/18 Narrative: GENERAL: No acute distress SKIN: Warm and dry CARDIOVASCULAR: Regular rate and rhythm; normal perfusion. RESPIRATORY: CTAB; normal rate GASTROINTESTINAL: Abdomen soft, nondistended. Normal bowel sounds : suprapubic catheter in place. Left groin skin intact with no obvious erythema or swelling. Groin tender to light palpation, unable to appreciate any lymph enlargement. MUSCULOSKELETAL: ROM and motor function of upper extremities grossly normal. No significant LE edema NEUROLOGICAL: Awake and alert. No obvious cranial nerve deficits. Grossly normal motor function bilateral UEs. BLE paresis. Normal speech. PSYCHIATRIC: Appropriate mood and affect; insight and judgment normal. - Urinary Catheter Management Suprapubic Cath placed during this visit: yes, but has since been removed by the nurse Reason for continuing: Chronic Urinary Retention Insertion date: 02/06/18 Insertion time: 17:30 Removal date: 02/06/18 Removal time: 17:30 Results - Labs CBC & Chem 7: 02/17/18 05:33 02/17/18 05:33 Laboratory Results - last 24 hr 02/18/18 02/18/18 02/19/18 17:55 22:03 04:16 POC Glucose 327 H 216 H 121 H 02/19/18 02/19/18 08:03 12:28 POC Glucose 118 H 265 H - Procedures none Assessment and Plan - Assessment (1) Neuromyelitis optica Code(s): G36.0 - Neuromyelitis optica [Devic] Status: Acute (2) Pulmonary embolism Code(s): I26.99 - Other pulmonary embolism without acute cor pulmonale Status : Acute (3) DM type 2 (diabetes mellitus, type 2) Code(s): E11.9 - Type 2 diabetes mellitus without complications Status: Acute - Plan Mrs. 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 Continue current medical plan. Suprapubic catheter to be changed today due to new UTI. Neuromyelitis optica, transverse myelitis, paraplegia Impression: Returned from [facility] following a one-month stay there. Per [facility] review of records, patient on Prednisone, Cellcept with plans to taper Prednisone when Cellcept therapeutic -Hematology following -Neurology following - s/p IV Rituxin infusion 01/06 and 01/20 - no further treatment x 6 mos. F/U with Dr. Estrella. -Prior provider discussed with Neuro 02/07- -MPA glucuronide 21 02/07 (low) -Continue Cellcept 750mg BID -Continue Prophylactic Bactrim three times weekly -Continue OT/PT Diabetes mellitus Impression: insulin-dependent. HgA1C 7.9 (10/05/17)-> HgA1c 8.4 02/08 16 U Novolog SS today - Will increase AM Levemir to 38 u daily. Continue HS Levemir to 26u nightly. - Continue prandial Novolog to 8u TIDAC - Continue Glyburide 5mg BID - continue accucheks and ISS Hypertension, chronic essential, controlled - Continue metoprolol Anemia of chronic disease - H&H are stable and no further hematuria - Continue to monitor CBC as indicated Pulmonary embolus - restarted Eliquis-12/16 no plans for permacath Right sided neck pain s/p Vas Cath removal - soft tissue US unremarkable Neurogenic bladder Urinary retention - Suprapubic catheter in place. Appreciate urology recommendations. - Suprapubic catheter exchange and upsizing 11/14 - SC change q 4 weeks. - 02/16 UA positive; started ampicillin. Will order catheter change. -Suspect left-sided groin pain related to infection; soft tissue ultrasound done 02/16 was negative. Suprapubic cellulitis - SC changed early due to cellulitis. -s/p Keflex po x 5 days (02/06-02/11) -Chlorhexidine wipes BID. -Nystatin BID. Constipation +BM - Continue on PeriColace BID - Continue on Miralax BID scheduled - monitor BMs GI PPX Pantoprazole 40mg DVT prophylaxis Eliquis
[2018-02-19] MEDS: Nystatin 100,000 UNITS/GM Powder 15 GM Bottle TOPICAL SCH ×2 (13:33→23:19)
[2018-02-19] MEDS: Nortriptyline 10 MG Capsule PO SCH (23:17)
[2018-02-20] MEDS: Insulin Detemir Inj 1,000 UNIT/10 ML Vial SQ SCH ×3 (00:14→20:46)
[2018-02-20] MEDS: Insulin NovoLOG Aspart Correctional Sugar Inj SQ SCH ×5 (00:14→20:46)
[2018-02-20] MEDS: Carboxymethylcellulose 0.5% Opth Drops 15 ML Bottle EACH EYE PRN (04:21)
[2018-02-20] MEDS: Polyethylene Glycol 3350 17 GM Packet PO SCH ×2 (09:58→20:27)
[2018-02-20] MEDS: Gabapentin 300 MG Capsule PO SCH ×3 (09:59→17:18)
[2018-02-20] MEDS: Calcium Acetate 667 MG Capsule PO SCH ×3 (09:59→17:19)
[2018-02-20] MEDS: Calcium/Vitamin D 250/125 MG Tablet PO SCH (09:59)
[2018-02-20] MEDS: Nystatin 100,000 UNITS/GM Powder 15 GM Bottle TOPICAL SCH ×2 (10:00→22:53)
[2018-02-20] MEDS: Senna/Docusate Sodium 8.6/50 MG Tablet PO SCH ×2 (10:00→20:27)
[2018-02-20] MEDS: predniSONE 10 MG Tablet PO SCH (10:00)
[2018-02-20] MEDS: Baclofen 10 MG Tablet PO SCH ×4 (10:00→20:27)
[2018-02-20] MEDS: Ascorbic Acid 500 MG Tablet PO SCH (10:06)
[2018-02-20] MEDS ORDERED: Benzonatate 100 MG Capsule PO PRN (11:39)
--- NOTE | 2018-02-20 15:46 | P.PN ---
Subjective Interval history: Patient is sitting up in bed. She tells me that when her suprapubic catheter was changed yesterday she did not have any of the prior groin pain. No other new complaints. Nursing reports no events overnight. Physical Exam Vital signs: Vital Signs 02/19/18 16:00 02/19/18 20:00 02/20/18 00:00 Temperature 98.3 F 97.9 F 97.8 F Pulse Rate 85 88 79 Respiratory Rate 18 18 18 Blood Pressure 128/82 130/91 H 128/85 Pulse Oximetry 99 99 99 02/20/18 04:00 02/20/18 08:00 02/20/18 12:00 Temperature 98.1 F 98.8 F 98 F Pulse Rate 79 92 H 91 H Respiratory Rate 18 20 20 Blood Pressure 112/66 142/71 H 138/71 Pulse Oximetry 98 98 100 Intake & Output 02/19/18 02/20/18 02/20/18 18:59 06:59 18:59 Output Total 650 / 650 1999 Balance -650 / -650 -1999 -1999 Weight 114 kg Output: Urine 650 / 650 1999 Other: Date of Last Bowel Movement 02/19/18 02/19/18 Narrative: GENERAL: No acute distress SKIN: Warm and dry CARDIOVASCULAR: Regular rate and rhythm; normal perfusion. RESPIRATORY: CTAB; normal rate GASTROINTESTINAL: Abdomen soft, nondistended. Normal bowel sounds : suprapubic catheter in place. Left groin skin intact with no obvious erythema or swelling. Groin tender to light palpation, unable to appreciate any lymph enlargement. MUSCULOSKELETAL: ROM and motor function of upper extremities grossly normal. No significant LE edema NEUROLOGICAL: Awake and alert. No obvious cranial nerve deficits. Grossly normal motor function bilateral UEs. BLE paresis. Normal speech. PSYCHIATRIC: Appropriate mood and affect; insight and judgment normal. - Urinary Catheter Management Suprapubic Cath placed during this visit: yes, but has since been removed by the nurse Reason for continuing: Chronic Urinary Retention Insertion date: 02/19/18 Insertion time: 18:00 Removal date: 02/06/18 Removal time: 17:30 Results - Labs CBC & Chem 7: 02/17/18 05:33 02/17/18 05:33 Laboratory Results - last 24 hr 09/29/18 09/29/18 09/30/18 16:24 23:15 04:19 POC Glucose 357 H 169 H 149 H 02/20/18 02/20/18 08:11 12:05 POC Glucose 273 H 197 H - Procedures none Assessment and Plan - Assessment (1) Neuromyelitis optica Code(s): G36.0 - Neuromyelitis optica [Devic] Status: Acute (2) Pulmonary embolism Code(s): I26.99 - Other pulmonary embolism without acute cor pulmonale Status : Acute (3) DM type 2 (diabetes mellitus, type 2) Code(s): E11.9 - Type 2 diabetes mellitus without complications Status: Acute - Plan Mrs. 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 Continue current medical plan. Suprapubic catheter changed 02/19. Neuromyelitis optica, transverse myelitis, paraplegia Impression: Returned from [facility] following a one-month stay there. Per [facility] review of records, patient on Prednisone, Cellcept with plans to taper Prednisone when Cellcept therapeutic -Hematology following -Neurology following - s/p IV Rituxin infusion 01/06 and 01/20 - no further treatment x 6 mos. F/U with Dr. Estrella. -Prior provider discussed with Neuro 02/07- -MPA glucuronide 21 02/07 (low) -Continue Cellcept 750mg BID -Continue Prophylactic Bactrim three times weekly -Continue OT/PT Diabetes mellitus Impression: insulin-dependent. HgA1C 7.9 (10/05/17)-> HgA1c 8.4 02/08 16 U Novolog SS today - Will increase AM Levemir to 38 u daily. Continue HS Levemir to 26u nightly. - Continue prandial Novolog to 8u TIDAC - Continue Glyburide 5mg BID - continue accucheks and ISS Hypertension, chronic essential, controlled - Continue metoprolol Anemia of chronic disease - H&H are stable and no further hematuria - Continue to monitor CBC as indicated Pulmonary embolus - restarted Eliquis-12/16 no plans for permacath Right sided neck pain s/p Vas Cath removal - soft tissue US unremarkable Neurogenic bladder Urinary retention - Suprapubic catheter in place. Appreciate urology recommendations. - Suprapubic catheter exchange and upsizing 11/14 - SC change q 4 weeks. - 02/16 UA positive; started ampicillin. Will order catheter change -changed 02/19. -Suspect left-sided groin pain related to infection; soft tissue ultrasound done 02/16 was negative. Groin pain resolved after catheter change. Suprapubic cellulitis - SC changed early due to cellulitis. -s/p Keflex po x 5 days (02/06-02/11) -Chlorhexidine wipes BID. -Nystatin BID. Constipation +BM - Continue on PeriColace BID - Continue on Miralax BID scheduled - monitor BMs GI PPX Pantoprazole 40mg DVT prophylaxis Eliquis
[2018-02-20] MEDS: Nortriptyline 10 MG Capsule PO SCH (20:27)
[2018-02-21] MEDS: Insulin Detemir Inj 1,000 UNIT/10 ML Vial SQ SCH ×2 (09:34→22:17)
[2018-02-21] MEDS: Insulin NovoLOG Aspart Correctional Sugar Inj SQ SCH ×4 (09:35→22:17)
[2018-02-21] MEDS: predniSONE 10 MG Tablet PO SCH (09:37)
[2018-02-21] MEDS: Sulfamethoxazole/Trimethoprim 400/80 MG Tablet PO SCH (09:38)
[2018-02-21] MEDS: Gabapentin 300 MG Capsule PO SCH ×3 (09:39→17:57)
[2018-02-21] MEDS: Calcium Acetate 667 MG Capsule PO SCH ×3 (09:39→17:54)
[2018-02-21] MEDS: Ascorbic Acid 500 MG Tablet PO SCH (09:40)
[2018-02-21] MEDS: Baclofen 10 MG Tablet PO SCH ×4 (09:41→22:13)
[2018-02-21] MEDS: Polyethylene Glycol 3350 17 GM Packet PO SCH ×2 (09:42→22:13)
[2018-02-21] MEDS: Calcium/Vitamin D 250/125 MG Tablet PO SCH (09:43)
[2018-02-21] MEDS: Senna/Docusate Sodium 8.6/50 MG Tablet PO SCH ×2 (09:44→22:16)
[2018-02-21] MEDS: Nystatin 100,000 UNITS/GM Powder 15 GM Bottle TOPICAL SCH ×2 (09:45→22:17)
--- NOTE | 2018-02-21 11:36 | P.PN ---
Subjective Interval history: Patient seen sitting up in bed. She is doing well. Looking forward to possibly getting up in her chair with physical therapy today. No new concerns or complaints. Nursing reports no adverse events overnight. Physical Exam Vital signs: Vital Signs 02/20/18 12:00 02/20/18 16:00 02/20/18 20:00 Temperature 98 F 98 F 98.2 F Pulse Rate 91 H 88 95 H Respiratory Rate 20 20 18 Blood Pressure 138/71 126/74 152/93 H Pulse Oximetry 100 100 100 02/21/18 00:00 02/21/18 04:00 02/21/18 08:00 Temperature 98.1 F 98 F 98.4 F Pulse Rate 103 H 94 H 87 Respiratory Rate 18 18 16 Blood Pressure 137/87 138/84 127/71 Pulse Oximetry 99 97 100 Intake & Output 02/20/18 02/21/18 02/21/18 18:59 06:59 18:59 Output Total 3103 / 3103 2600 / 2600 Balance -3103 / -3103 -2600 / -2600 Weight 112.8 kg Output: Urine 3100 / 3100 2600 / 2600 Stool 3 / 3 Other: Date of Last Bowel Movement 02/20/18 02/19/18 Narrative: GENERAL: No acute distress SKIN: Warm and dry CARDIOVASCULAR: Regular rate and rhythm; normal perfusion. RESPIRATORY: CTAB; normal rate GASTROINTESTINAL: Abdomen soft, nondistended. Normal bowel sounds : suprapubic catheter in place. Left groin skin intact with no obvious erythema or swelling. Groin tender to light palpation, unable to appreciate any lymph enlargement. MUSCULOSKELETAL: ROM and motor function of upper extremities grossly normal. No significant LE edema NEUROLOGICAL: Awake and alert. No obvious cranial nerve deficits. Grossly normal motor function bilateral UEs. BLE paresis. Normal speech. PSYCHIATRIC: Appropriate mood and affect; insight and judgment normal. 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 Continue current medical plan. Neuromyelitis optica, transverse myelitis, paraplegia Impression: Returned from [facility] following a one-month stay there. Per [facility] review of records, patient on Prednisone, Cellcept with plans to taper Prednisone when Cellcept therapeutic -Hematology following -Neurology following - s/p IV Rituxin infusion 01/06 and 01/20 - no further treatment x 6 mos. F/U with Dr. Estrella. -Prior provider discussed with Neuro 02/07- -MPA glucuronide 21 02/07 (low) -Continue Cellcept 750mg BID -Continue Prophylactic Bactrim three times weekly -Continue OT/PT Diabetes mellitus Impression: insulin-dependent. HgA1C 7.9 (10/05/17)-> HgA1c 8.4 02/08 16 U Novolog SS today - Will increase AM Levemir to 38 u daily. Continue HS Levemir to 26u nightly. - Continue prandial Novolog to 8u TIDAC - Continue Glyburide 5mg BID - continue accucheks and ISS Hypertension, chronic essential, controlled - Continue metoprolol Anemia of chronic disease - H&H are stable and no further hematuria - Continue to monitor CBC as indicated Pulmonary embolus - restarted Eliquis-12/16 no plans for permacath Right sided neck pain s/p Vas Cath removal - soft tissue US unremarkable Neurogenic bladder Urinary retention - Suprapubic catheter in place. Appreciate urology recommendations. - Suprapubic catheter exchange and upsizing 11/14 - SC change q 4 weeks. - 02/16 UA positive; started ampicillin. Will order catheter change -changed 02/19. -Suspect left-sided groin pain related to infection; soft tissue ultrasound done 02/16 was negative. Groin pain resolved after catheter change. Suprapubic cellulitis - SC changed early due to cellulitis. -s/p Keflex po x 5 days (02/06-02/11) -Chlorhexidine wipes BID. -Nystatin BID. Constipation +BM - Continue on PeriColace BID - Continue on Miralax BID scheduled - monitor BMs GI PPX Pantoprazole 40mg DVT prophylaxis Eliquis
[2018-02-21] MEDS: Nortriptyline 10 MG Capsule PO SCH (22:15)
[2018-02-22] MEDS: Polyethylene Glycol 3350 17 GM Packet PO SCH ×2 (10:15→22:29)
[2018-02-22] MEDS: Calcium Acetate 667 MG Capsule PO SCH ×3 (10:15→18:11)
[2018-02-22] MEDS: predniSONE 10 MG Tablet PO SCH (10:16)
[2018-02-22] MEDS: Baclofen 10 MG Tablet PO SCH ×4 (10:18→22:29)
[2018-02-22] MEDS: Calcium/Vitamin D 250/125 MG Tablet PO SCH (10:20)
[2018-02-22] MEDS: Gabapentin 300 MG Capsule PO SCH ×3 (10:22→18:10)
[2018-02-22] MEDS: Insulin Detemir Inj 1,000 UNIT/10 ML Vial SQ SCH ×2 (10:23→22:29)
[2018-02-22] MEDS: Insulin NovoLOG Aspart Correctional Sugar Inj SQ SCH ×4 (10:23→22:29)
[2018-02-22] MEDS: Nystatin 100,000 UNITS/GM Powder 15 GM Bottle TOPICAL SCH ×2 (10:24→22:30)
[2018-02-22] MEDS: Senna/Docusate Sodium 8.6/50 MG Tablet PO SCH ×2 (10:24→22:28)
[2018-02-22] MEDS: Ascorbic Acid 500 MG Tablet PO SCH (10:31)
--- NOTE | 2018-02-22 13:11 | P.PN ---
Subjective Interval history: Follow up on patient with Neuromyelitis optica, transverse myelitis, paraplegia. Patient seen and examined. Patient denies any complaints. States she slept well. No fever or chills. No chest pain or dyspnea. Family is at the bedside. Physical Exam Vital signs: Vital Signs 02/21/18 18:06 02/21/18 20:00 02/22/18 00:00 Temperature 98.8 F 98 F 98.5 F Pulse Rate 82 86 84 Respiratory Rate 18 Blood Pressure 132/90 140/89 138/85 Pulse Oximetry 100 100 100 02/22/18 04:00 02/22/18 08:00 02/22/18 12:00 Temperature 98.2 F 98.7 F 98.6 F Pulse Rate 86 94 H 92 H Respiratory Rate 18 20 20 Blood Pressure 132/85 143/79 H 118/69 Pulse Oximetry 99 97 100 Intake & Output 02/21/18 02/22/18 02/22/18 18:59 06:59 18:59 Output Total 2800 / 2800 2000 / 2000 1000 / 1000 Balance -2800 / -2800 -2000 / -2000 -1000 / -1000 Weight 114.8 kg Output: Urine 2000 / 2000 1000 / 1000 Urine Amount (Catheter) 2800 / 2800 Suprapubic 2800 / 2800 Other: Date of Last Bowel Movement 02/19/18 02/21/18 02/19/18 Narrative: GENERAL: WDWN female. Awake and alert. Appears comfortable. Not in any acute distress. Family at the bedside. SKIN: Warm and dry. HEENT: Atraumatic. Normocephalic. Pupils equal and round. No scleral icterus. No injection or drainage. No nasal bleeding or discharge. Mucous membranes pink and moist. NECK: Trachea midline. CARDIOVASCULAR: Regular rate and rhythm. RESPIRATORY: No accessory muscle use. Clear to auscultation anteriorly. Breath sounds equal bilaterally. GASTROINTESTINAL: Abdomen soft, non-tender, nondistended. +BS. MUSCULOSKELETAL: Extremities without clubbing, cyanosis. +Trace BLE edema. NEUROLOGICAL: Awake and alert. No obvious cranial nerve deficits. Decreased motor function bilateral UEs. BLE paresis. Normal speech. PSYCHIATRIC: Appropriate mood and affect; insight and judgment normal. 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 Neuromyelitis optica, transverse myelitis, paraplegia New complaints unable to feel with her hands- UE sensation and strength much improved - Returned from [facility] following a one-month stay there. - Continue prednisone 30mg daily, CellCept indefinitely per review of [facility] medical records. Once CellCept level therapeutic, may taper steroid. 02/07 GINNA Estrella. CellCept dose increased to 750mg BID. Repeat Cellcept level 02/07 low. - Bactrim Wednesday/Wednesday/Wednesday prophylactically. Monitor K level intermittently. - Continue physical therapy, Occupational Therapy - Hematology and neurology following - s/p IV Rituxin infusion 01/06 and 01/20 - no further treatment x 6 mos. F/U with Dr. Estrella. Diabetes mellitus, insulin-dependent HgA1C 7.9 (10/05/17) A1c 8.4 02/08/18 - Continue Levemir 38 u daily. Continue Levemir 26u nightly. - Continue prandial Novolog to 8u TIDAC - Continue Glyburide 5mg BID - continue accucheks and ISS Hypertension, chronic essential, controlled - Continue metoprolol Anemia of chronic disease - H&H are stable and no further hematuria - Continue to monitor CBC as indicated Pulmonary embolus - restarted Eliquis-12/16 no plans for permacath anymore Right sided neck pain s/p Vas Cath removal - soft tissue US unremarkable Neurogenic bladder Urinary retention - Suprapubic catheter in place. Appreciate urology recommendations. - Suprapubic catheter exchange and upsizing 11/14 - SC changed 02/19 - routine care - and change q 4 weeks. Suprapubic cellulitis - treated with Keflex po x 5 days (02/06-02/11) Constipation +BM - Continue on PeriColace BID - Continue on Miralax BID scheduled - monitor BMs DVT prophylaxis Eliquis Code Status: FULL Discussed Condition With: patient, nursing staff Discharge Planning: Difficult placement. CM assists with ongoing discharge planning.
[2018-02-22] MEDS: Nortriptyline 10 MG Capsule PO SCH (22:29)
--- NOTE | 2018-02-23 07:21 | P.PN ---
Subjective Interval history: Follow up on patient with Neuromyelitis optica, transverse myelitis, paraplegia. Patient seen and examined. Patient states she has some soreness in her left groin area. She denies any fever or chills. She denies any chest pain or dyspnea. She states her hand strength is improving but she still has minimal sensation. She admits to eating margaret crackers last night. Her blood sugar was 318 this morning. Physical Exam Vital signs: Vital Signs 02/22/18 08:00 02/22/18 12:00 02/22/18 16:00 Temperature 98.7 F 98.6 F 98.7 F Pulse Rate 94 H 92 H 90 Respiratory Rate 20 20 20 Blood Pressure 143/79 H 118/69 120/67 Pulse Oximetry 97 100 100 02/22/18 19:40 02/23/18 00:00 02/23/18 00:10 Temperature 98.1 F 98.3 F Pulse Rate 84 88 Respiratory Rate 18 18 18 Blood Pressure 137/80 150/89 H Pulse Oximetry 95 100 02/23/18 04:00 02/23/18 06:15 Temperature 97.8 F Pulse Rate Respiratory Rate 18 18 Blood Pressure 144/70 H Pulse Oximetry 100 Intake & Output 02/22/18 02/23/18 02/23/18 18:59 06:59 18:59 Output Total 1001 / 1001 2850 / 2850 Balance -1001 / -1001 -2850 / -2850 Weight 114.5 kg Output: Urine 1000 / 1000 2850 / 2850 Stool 1 / 1 Other: Date of Last Bowel Movement 02/22/18 02/22/18 # Incontinent Bowel Movements 1 - Urinary Catheter Management Suprapubic Cath placed during this visit: yes, but has since been removed by the nurse Reason for continuing: Chronic Urinary Retention Insertion date: 02/19/18 Insertion time: 18:00 Removal date: 02/06/18 Removal time: 17:30 Results - Labs CBC & Chem 7: 02/17/18 05:33 02/17/18 05:33 Laboratory Results - last 24 hr 02/22/18 02/22/18 02/22/18 07:17 12:03 16:17 POC Glucose 262 H 236 H 286 H 02/22/18 02/23/18 22:15 02:56 POC Glucose 221 H 210 H - Procedures none Assessment and Plan - Assessment (1) 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 Neuromyelitis optica, transverse myelitis, paraplegia New complaints unable to feel with her hands- UE sensation and strength much improved - Returned from [facility] following a one-month stay there. - Continue prednisone 30mg daily, CellCept indefinitely per review of [facility] medical records. Once CellCept level therapeutic, may taper steroid. 02/[address] Estrella. Repeat Cellcept level 02/07 low. CellCept dose increased to 750mg BID. Repeat CellCept level ordered.25 - Bactrim Wednesday/Wednesday/Wednesday prophylactically. Monitor K level intermittently. Repeat BMP in am. - Continue physical therapy, Occupational Therapy - Hematology and neurology following - s/p IV Rituxin infusion 01/06 and 01/20 - no further treatment x 6 mos. F/U with Dr. Estrella. Diabetes mellitus, insulin-dependent HgA1C 7.9 (10/05/17) A1c 8.4 02/08/18 BS 318 this am - Continue Levemir 37 u daily. Increase Levemir to 28u nightly. - Increase prandial Novolog to 10u TIDAC - Continue Glyburide 5mg BID - continue accucheks and ISS Hypertension, chronic essential, controlled - Continue metoprolol Anemia of chronic disease - H&H are stable and no further hematuria - Continue to monitor CBC as indicated Pulmonary embolus - restarted Eliquis-12/16 no plans for permacath anymore Right sided neck pain s/p Vas Cath removal - soft tissue US unremarkable Neurogenic bladder Urinary retention - Suprapubic catheter in place. Appreciate urology recommendations. - Suprapubic catheter exchange and upsizing 11/14 - SC changed 02/19 - routine care - and change q 4 weeks. Suprapubic cellulitis - treated with Keflex po x 5 days (02/06-02/11) Constipation +BM - Continue on PeriColace BID - Continue on Miralax BID scheduled - monitor BMs DVT prophylaxis Eliquis Discussed Condition With: patient, nursing staff Discharge Planning: Difficult placement. CM assists with ongoing discharge planning. [facility] currently looking at patient for possible placement.
[2018-02-23] MEDS: Calcium Acetate 667 MG Capsule PO SCH ×3 (08:00→18:51)
[2018-02-23] MEDS: Insulin Detemir Inj 1,000 UNIT/10 ML Vial SQ SCH (08:00)
[2018-02-23] MEDS: Insulin NovoLOG Aspart Correctional Sugar Inj SQ SCH ×4 (10:01→22:14)
[2018-02-23] MEDS: Polyethylene Glycol 3350 17 GM Packet PO SCH ×2 (10:06→22:09)
[2018-02-23] MEDS: predniSONE 10 MG Tablet PO SCH (10:06)
[2018-02-23] MEDS: Ascorbic Acid 500 MG Tablet PO SCH (10:06)
[2018-02-23] MEDS: Baclofen 10 MG Tablet PO SCH ×4 (10:06→22:10)
[2018-02-23] MEDS: Calcium/Vitamin D 250/125 MG Tablet PO SCH (10:07)
[2018-02-23] MEDS: Gabapentin 300 MG Capsule PO SCH ×3 (10:07→18:51)
[2018-02-23] MEDS: Sulfamethoxazole/Trimethoprim 400/80 MG Tablet PO SCH (10:07)
[2018-02-23] MEDS: Senna/Docusate Sodium 8.6/50 MG Tablet PO SCH ×2 (10:08→22:13)
[2018-02-23] MEDS: Nystatin 100,000 UNITS/GM Powder 15 GM Bottle TOPICAL SCH ×2 (10:09→22:14)
[2018-02-23] MEDS ORDERED: Insulin Detemir Inj 1,000 UNIT/10 ML Vial SQ SCH (21:00)
[2018-02-23] MEDS: Nortriptyline 10 MG Capsule PO SCH (22:11)
[2018-02-24 07:31] LABS: Anion Gap 7 meq/L (5-15); Blood Urea Nitrogen 12 mg/dL (7-18); Calcium 9.1 mg/dL (8.5-10.1); Carbon Dioxide 32.7 meq/L (21.0-32.0); Chloride 102 meq/L (98-107); Glomerular Filtration Rate Greater Than 89 mL/min (>89); Glucose,Random 116 mg/dL (74-106); Potassium 3.8 meq/L (3.5-5.1); Sodium 142 meq/L (136-145)
--- NOTE | 2018-02-24 07:51 | P.PN ---
Subjective Interval history: Follow up on patient with Neuromyelitis optica, transverse myelitis, paraplegia. Patient seen and examined. Patient says she still has tenderness of the left suprapubic area. She does report it has improved some. She denies any fever or chills. She denies any chest pain or shortness of breath. She is upset that case management contacted her sister instead of telling her directly that she had been presented to [facility] for possible placement. She states her sister told her that [facility] is not very good. Physical Exam Vital signs: Vital Signs 02/23/18 08:00 02/23/18 10:40 02/23/18 12:00 Temperature 98.1 F 98.5 F Pulse Rate 86 97 H Respiratory Rate 18 18 18 Blood Pressure 150/66 H 128/70 Pulse Oximetry 97 100 02/23/18 16:00 02/23/18 19:50 02/24/18 00:20 Temperature 98.3 F 98.0 F 98.9 F Pulse Rate 82 93 H 85 Respiratory Rate 18 18 18 Blood Pressure 143/73 H 109/51 L 135/81 Pulse Oximetry 99 100 100 02/24/18 00:30 02/24/18 04:00 02/24/18 06:57 Temperature 98.8 F Pulse Rate 88 Respiratory Rate 18 20 18 Blood Pressure 134/93 H Pulse Oximetry 98 Intake & Output 02/23/18 02/24/18 02/24/18 18:59 06:59 18:59 Intake Total 2500 / 2500 Output Total 3000 / 3000 Balance -500 / -500 Weight 114 kg Intake: Oral 2500 / 2500 Output: Urine 3000 / 3000 Other: Date of Last Bowel Movement 02/22/18 # Incontinent Bowel Movements 1 Narrative: GENERAL: WDWN female. Awake and alert. Appears comfortable. Not in any acute distress. SKIN: Warm and dry. +small superficial skin breakdown noted in left groin area. HEENT: Atraumatic. Normocephalic. Pupils equal and round. No scleral icterus. No injection or drainage. No nasal bleeding or discharge. Mucous membranes pink and moist. NECK: Trachea midline. CARDIOVASCULAR: Regular rate and rhythm. RESPIRATORY: No accessory muscle use. Clear to auscultation anteriorly. Breath sounds equal bilaterally. GASTROINTESTINAL: Abdomen soft, non-tender, nondistended. +BS. GENITOURINARY: Suprapubic catheter in place. Left suprapubic area appears benign. +mild tenderness to palpation. MUSCULOSKELETAL: Extremities without clubbing, cyanosis. +Trace BLE edema. NEUROLOGICAL: Awake and alert. No obvious cranial nerve deficits. Decreased motor function bilateral UEs. BLE paresis. Normal speech. PSYCHIATRIC: Appropriate mood and affect; insight and judgment normal. - Urinary Catheter Management Suprapubic Cath placed during this visit: yes, but has since been removed by the nurse Reason for continuing: Chronic Urinary Retention Insertion date: 02/19/18 Insertion time: 18:00 Removal date: 02/06/18 Removal time: 17:30 Results - Labs CBC & Chem 7: 02/17/18 05:33 02/24/18 06:11 Laboratory Results - last 24 hr 02/23/18 02/23/18 02/23/18 12:34 18:00 22:00 Sodium Potassium Chloride Carbon Dioxide Anion Gap BUN Creatinine Estimated GFR POC Glucose 158 H 258 H 349 H Random Glucose Calcium 02/24/18 02/24/18 04:23 06:11 Sodium 142 Potassium 3.8 Chloride 102 Carbon Dioxide 32.7 H Anion Gap 7 BUN 12 Creatinine 0.57 Estimated GFR Greater than 89 POC Glucose 125 H Random Glucose 116 H Calcium 9.1 - Procedures none Assessment and Plan - Assessment (1) 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 Neuromyelitis optica, transverse myelitis, paraplegia New complaints unable to feel with her hands- UE sensation and strength much improved - Returned from [facility] following a one-month stay there. - Continue prednisone 30mg daily, CellCept indefinitely per review of [facility] medical records. Once CellCept level therapeutic, may taper steroid. 02/07 GINNA Estrella. Repeat Cellcept level 02/07 low. CellCept dose increased to 750mg BID. Repeat CellCept level ordered/pending. - Bactrim Wednesday/Wednesday/Wednesday prophylactically. Monitor K level intermittently. K 3.8 on 02/24. - Continue physical therapy, Occupational Therapy - Hematology and neurology following - s/p IV Rituxin infusion 01/06 and 01/20 - no further treatment x 6 mos. F/U with Dr. Estrella. Diabetes mellitus, insulin-dependent HgA1C 7.9 (10/05/17) A1c 8.4 02/08/18 BS improved. - Continue Levemir 37 u daily. Continue Levemir 27u nightly. - continue prandial Novolog 10u TIDAC - Continue Glyburide 5mg BID - continue accucheks and ISS Hypertension, chronic essential, controlled - Continue metoprolol Anemia of chronic disease - H&H are stable and no further hematuria - Continue to monitor CBC as indicated Pulmonary embolus - restarted Eliquis-12/16 no plans for permacath anymore Neurogenic bladder Urinary retention - Suprapubic catheter in place. Appreciate urology recommendations. - Suprapubic catheter exchange and upsizing 11/14 - SC changed 02/19 - routine care - and change q 4 weeks. Left suprapubic pain Enterococcus UTI 02/16, treated with Amoxicillin 02/16 to 02/21 - send UA - dw US, soft US obtained 02/16 did not include the suprapubic area. Will obtain left suprapubic soft tissue US. - trial topical lidocaine to area Constipation +BM - Continue on PeriColace BID - Continue on Miralax BID scheduled - monitor BMs DVT prophylaxis Eliquis Discussed Condition With: patient, nursing staff Discharge Planning: Difficult placement. CM assists with ongoing discharge planning. [facility] currently looking at patient for possible placement.
[2018-02-24] MEDS: Insulin Detemir Inj 1,000 UNIT/10 ML Vial SQ SCH ×2 (09:52→23:46)
[2018-02-24] MEDS: Polyethylene Glycol 3350 17 GM Packet PO SCH ×2 (09:53→23:53)
[2018-02-24] MEDS: Insulin NovoLOG Aspart Correctional Sugar Inj SQ SCH ×4 (09:54→23:45)
[2018-02-24] MEDS: Calcium Acetate 667 MG Capsule PO SCH ×3 (09:54→18:27)
[2018-02-24] MEDS: Baclofen 10 MG Tablet PO SCH ×4 (09:55→23:52)
[2018-02-24] MEDS: Ascorbic Acid 500 MG Tablet PO SCH (09:56)
[2018-02-24] MEDS: Calcium/Vitamin D 250/125 MG Tablet PO SCH (09:56)
[2018-02-24] MEDS: Senna/Docusate Sodium 8.6/50 MG Tablet PO SCH ×2 (09:56→23:52)
[2018-02-24] MEDS: predniSONE 10 MG Tablet PO SCH (09:56)
[2018-02-24] MEDS: Gabapentin 300 MG Capsule PO SCH ×3 (09:57→18:27)
[2018-02-24] MEDS: Nystatin 100,000 UNITS/GM Powder 15 GM Bottle TOPICAL SCH ×2 (09:58→23:57)
[2018-02-24] MEDS ORDERED: Lidocaine 5% Oint 37 GM Tube TOPICAL PRN (15:21)
[2018-02-24] MEDS: Nortriptyline 10 MG Capsule PO SCH (23:51)
[2018-02-25] MEDS: predniSONE 10 MG Tablet PO SCH (08:50)
[2018-02-25] MEDS: Sulfamethoxazole/Trimethoprim 400/80 MG Tablet PO SCH (08:50)
[2018-02-25] MEDS: Ascorbic Acid 500 MG Tablet PO SCH (08:50)
[2018-02-25] MEDS: Calcium/Vitamin D 250/125 MG Tablet PO SCH (08:51)
[2018-02-25] MEDS: Calcium Acetate 667 MG Capsule PO SCH ×3 (08:51→17:11)
[2018-02-25] MEDS: Nystatin 100,000 UNITS/GM Powder 15 GM Bottle TOPICAL SCH (08:52)
[2018-02-25] MEDS: Insulin Detemir Inj 1,000 UNIT/10 ML Vial SQ SCH ×2 (08:52→21:55)
[2018-02-25] MEDS: Insulin NovoLOG Aspart Correctional Sugar Inj SQ SCH ×4 (08:52→21:55)
[2018-02-25] MEDS: Gabapentin 300 MG Capsule PO SCH ×3 (08:52→17:11)
[2018-02-25] MEDS: Polyethylene Glycol 3350 17 GM Packet PO SCH ×2 (08:52→21:39)
[2018-02-25] MEDS: Senna/Docusate Sodium 8.6/50 MG Tablet PO SCH ×2 (08:52→21:39)
[2018-02-25] MEDS: Baclofen 10 MG Tablet PO SCH ×4 (08:56→21:37)
--- NOTE | 2018-02-25 11:35 | US ---
EXAM DATE: 02/25/2018 12:00 AM EDT AGE/SEX: 47 years / Female INDICATIONS: Left suprapubic pain. CLINICAL DATA: This is the patient's initial encounter. Patient reports that signs and symptoms have been present for 3 days and indicates a pain score of 3/10. MEDICAL/SURGICAL HISTORY: Diabetes. Hypertension. Pain. Neuromyelitis optica. Paraplegia. Pulm onary embolism. . Suprapubic catheter. COMPARISON: [facility] [place], [place] SOFT TISSUE, 02/02/2018. . FINDINGS: There is no soft tissue mass. CONCLUSION: 1. Negative Electronically signed by: Mario Mckinney MD 02/25/2018 11:34 AM EDT
--- NOTE | 2018-02-25 12:18 | P.PN ---
Subjective Interval history: Follow up on patient with Neuromyelitis optica, transverse myelitis, paraplegia. Patient seen and examined. Patient states she had a horrible night last night. She complained of pain and requests a pain pill but was never brought one. She complains of pain extending from her neck down. She denies any fever or chills. She denies any chest pain or shortness of breath. She denies any nausea, vomiting or abdominal pain. She continues to have tenderness over the left suprapubic area. Physical Exam Vital signs: Vital Signs 02/24/18 14:08 02/24/18 16:00 02/24/18 20:00 Temperature 98.1 F 98.3 F Pulse Rate 77 83 Respiratory Rate 18 18 20 Blood Pressure 129/86 130/81 Pulse Oximetry 100 99 02/25/18 00:00 02/25/18 04:00 02/25/18 08:00 Temperature 97.7 F 97.9 F 98.8 F Pulse Rate 84 80 89 Respiratory Rate 20 20 14 Blood Pressure 127/82 162/85 H 150/89 H Pulse Oximetry 100 100 97 Intake & Output 02/24/18 02/25/18 02/25/18 18:59 06:59 18:59 Intake Total 1200 / 1200 1500 / 1500 Output Total 1800 / 1800 3500 / 3500 Balance -600 / -600 -2000 / -2000 Intake: Oral 1200 / 1200 1500 / 1500 Output: Urine 1800 / 1800 3500 / 3500 Other: Date of Last Bowel Movement 02/24/18 02/24/18 02/25/18 # Bowel Movements 2 # Incontinent Bowel Movements 2 Narrative: GENERAL: WDWN female. Awake and alert. Appears comfortable. Not in any acute distress. Sitting up in bed eating breakfast. SKIN: Warm and dry. +small superficial skin breakdown noted in left groin area. HEENT: Atraumatic. Normocephalic. Pupils equal and round. No scleral icterus. No injection or drainage. No nasal bleeding or discharge. Mucous membranes pink and moist. NECK: Trachea midline. CARDIOVASCULAR: Regular rate and rhythm. RESPIRATORY: No accessory muscle use. Clear to auscultation anteriorly. Breath sounds equal bilaterally. GASTROINTESTINAL: Abdomen soft, non-tender, nondistended. +BS. GENITOURINARY: Suprapubic catheter in place. Left suprapubic area appears benign. +mild tenderness to palpation. MUSCULOSKELETAL: Extremities without clubbing, cyanosis. +Trace BLE edema. NEUROLOGICAL: Awake and alert. No obvious cranial nerve deficits. Decreased motor function bilateral UEs. BLE paresis. Normal speech. PSYCHIATRIC: Appropriate mood and affect; insight and judgment normal. - Urinary Catheter Management Suprapubic Cath placed during this visit: yes, but has since been removed by the nurse Reason for continuing: Chronic Urinary Retention Insertion date: 02/19/18 Insertion time: 18:00 Removal date: 02/06/18 Removal time: 17:30 Results - Labs CBC & Chem 7: 02/17/18 05:33 02/24/18 06:11 Laboratory Results - last 24 hr 02/24/18 02/24/18 02/24/18 12:35 16:44 23:43 POC Glucose 222 H 353 H 185 H 02/25/18 08:49 POC Glucose 149 H - Imaging Impressions Soft Tissue Ultrasound 02/25/18 00:00 CONCLUSION: 1. 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 Neuromyelitis optica, transverse myelitis, paraplegia New complaints unable to feel with her hands- UE sensation and strength much improved - Returned from [facility] following a one-month stay there. - Continue prednisone 30mg daily, CellCept indefinitely per review of [facility] medical records. Once CellCept level therapeutic, may taper steroid. 02/07 GINNA Estrella. Repeat Cellcept level 02/07 low. CellCept dose increased to 750mg BID. Repeat CellCept level ordered/pending. - Bactrim Wednesday/Wednesday/Wednesday prophylactically. Monitor K level intermittently. K 3.8 on 02/24. - Continue physical therapy, Occupational Therapy - Hematology and neurology following - s/p IV Rituxin infusion 01/06 and 01/20 - no further treatment x 6 mos. F/U with Dr. Estrella. Diabetes mellitus, insulin-dependent HgA1C 7.9 (10/05/17) A1c 8.4 02/08/18 BS improved. - Continue Levemir 37 u daily. Continue Levemir 27u nightly. - continue prandial Novolog 10u TIDAC - Continue Glyburide 5mg BID - continue accucheks and ISS Hypertension, chronic essential, controlled - Continue metoprolol Anemia of chronic disease - H&H are stable and no further hematuria - Continue to monitor CBC as indicated Pulmonary embolus - restarted Eliquis-12/16 no plans for permacath anymore Neurogenic bladder Urinary retention - Suprapubic catheter in place. Appreciate urology recommendations. - Suprapubic catheter exchange and upsizing 11/14 - SC changed 02/19 - routine care - and change q 4 weeks. Left suprapubic pain Enterococcus UTI 02/16, treated with Amoxicillin 02/16 to 02/21 - send UA -ordered but not done as of yet - dw US, soft US obtained 02/16 did not include the suprapubic area. US left suprapubic area negative. - trial topical lidocaine to area Constipation +BM - Continue on PeriColace BID - Continue on Miralax BID scheduled - monitor BMs DVT prophylaxis Eliquis Discharge Planning: Difficult placement. CM assists with ongoing discharge planning. [facility] currently looking at patient for possible placement.
[2018-02-25 20:41] LABS: Mycophenolic Acid 6.4 mcg/mL (1.0 - 3.5)
[2018-02-25] MEDS: Nortriptyline 10 MG Capsule PO SCH (21:38)
[2018-02-26] MEDS: Nystatin 100,000 UNITS/GM Powder 15 GM Bottle TOPICAL SCH ×3 (00:42→23:02)
--- NOTE | 2018-02-26 07:26 | P.PN ---
Subjective Interval history: Follow up on patient with Neuromyelitis optica, transverse myelitis, paraplegia. Patient seen and examined. Patient says her night was much better. She denies any acute medical complaints. She denies any fever or chills. She denies any chest pain or shortness of breath. She denies any N/V or abdominal pain. She says the tenderness over her left suprapubic area seems to be improving. Soft tissue US was neg. Physical Exam Vital signs: Vital Signs 02/25/18 08:00 02/25/18 12:00 02/25/18 16:00 Temperature 98.8 F 98.2 F 98.2 F Pulse Rate 89 88 86 Respiratory Rate 14 16 14 Blood Pressure 150/89 H 134/69 147/73 H Pulse Oximetry 97 98 99 02/25/18 18:24 02/25/18 20:00 02/26/18 00:00 Temperature 97.5 F L 97.4 F L Pulse Rate 86 79 Respiratory Rate 20 18 18 Blood Pressure 123/75 138/78 Pulse Oximetry 98 100 02/26/18 04:00 Temperature 97.9 F Pulse Rate 80 Respiratory Rate 18 Blood Pressure 123/57 L Pulse Oximetry 99 Intake & Output 02/25/18 02/26/18 02/26/18 18:59 06:59 18:59 Output Total 2199 / 0 2049 / 2049 Balance -2199 / -2199 -2049 / -2049 Weight 114.6 kg Output: Urine Amount (Catheter) 2199 / 2200 2049 Suprapubic 2200 / 2200 2049 Other: Date of Last Bowel Movement 02/25/18 02/26/18 # Incontinent Bowel Movements 2 Narrative: GENERAL: WDWN female, I[place]D. Awake and alert. Appears comfortable. SKIN: Warm and dry. +small superficial skin breakdown noted in left groin area. HEENT: Atraumatic. Normocephalic. Pupils equal and round. No scleral icterus. No injection or drainage. No nasal bleeding or discharge. Mucous membranes pink and moist. NECK: Trachea midline. CARDIOVASCULAR: Regular rate and rhythm. RESPIRATORY: No accessory muscle use. Clear to auscultation anteriorly. Breath sounds equal bilaterally. GASTROINTESTINAL: Abdomen soft, non-tender, nondistended. +BS. GENITOURINARY: Suprapubic catheter in place. Left suprapubic area appears benign. +mild tenderness to palpation. MUSCULOSKELETAL: Extremities without clubbing, cyanosis. +Trace BLE edema. NEUROLOGICAL: Awake and alert. No obvious cranial nerve deficits. Decreased motor function bilateral UEs. BLE paresis. Normal speech. PSYCHIATRIC: Appropriate mood and affect; insight and judgment normal. - Urinary Catheter Management Suprapubic Cath placed during this visit: yes, but has since been removed by the nurse Reason for continuing: Chronic Urinary Retention Insertion date: 02/19/18 Insertion time: 18:00 Removal date: 02/06/18 Removal time: 17:30 Results - Labs CBC & Chem 7: 02/17/18 05:33 02/24/18 06:11 Laboratory Results - last 24 hr 02/24/18 02/25/18 02/25/18 06:11 08:49 12:00 POC Glucose 149 H 263 H Mycophenolic Acid 6.4 H MPA Glucuronide 26 L 02/25/18 02/25/18 02/26/18 17:02 21:41 06:16 POC Glucose 279 H 186 H 141 H Mycophenolic Acid MPA Glucuronide - Imaging Impressions Soft Tissue Ultrasound 02/25/18 00:00 CONCLUSION: 1. Negative - Procedures none Assessment and Plan - Assessment (1) Neuromyelitis optica Code(s): G36.0 - Neuromyelitis optica [Devic] Status: Acute (2) Pulmonary embolism Code(s): I26.99 - Other pulmonary embolism without acute cor pulmonale Status : Acute (3) DM type 2 (diabetes mellitus, type 2) Code(s): E11.9 - Type 2 diabetes mellitus without complications Status: Acute - Plan 47-year-old female with a history of diabetes, neuromyelitis optica with transverse myelitis that resulted in sensorimotor paraplegia diagnosed in May 2017, arthritis, hypertension, iron deficiency anemia was a transfer back from [facility]. Neuromyelitis optica, transverse myelitis, paraplegia New complaints unable to feel with her hands- UE sensation and strength much improved - Returned from [facility] following a one-month stay there. - Continue prednisone 30mg daily, CellCept indefinitely per review of [facility] medical records. Once CellCept level therapeutic, may taper steroid. 02/07 GINNA Estrella. Repeat Cellcept level 02/07 low. CellCept dose increased to 750mg BID. Repeat CellCept level ordered/pending. - Bactrim Wednesday/Wednesday/Wednesday prophylactically. Monitor K level intermittently. K 3.8 on 02/24. - Continue physical therapy, Occupational Therapy - Hematology and neurology following - s/p IV Rituxin infusion 01/06 and 01/20 - no further treatment x 6 mos. F/U with Dr. Estrella. Diabetes mellitus, insulin-dependent HgA1C 7.9 (10/05/17) A1c 8.4 02/08/18 BS improved. - Continue Levemir 37u daily. Continue Levemir 27u nightly. - continue prandial Novolog 10u TIDAC - Continue Glyburide 5mg BID - continue accucheks and ISS Hypertension, chronic essential, controlled - Continue metoprolol Anemia of chronic disease - H&H are stable and no further hematuria - Continue to monitor CBC as indicated Pulmonary embolus - restarted Eliquis-12/16 no plans for permacath anymore Neurogenic bladder Urinary retention - Suprapubic catheter in place. Appreciate urology recommendations. - Suprapubic catheter exchange and upsizing 11/14 - SC changed 02/19 - routine care - and change q 4 weeks. Left suprapubic pain Enterococcus UTI 02/16, treated with Amoxicillin 02/16 to 02/21 - send UA -ordered but not done as of yet - dw US, soft US obtained 02/16 did not include the suprapubic area. US left suprapubic area negative. - trial topical lidocaine to area Constipation +BM - Continue on PeriColace BID - Continue on Miralax BID scheduled - monitor BMs DVT prophylaxis Eliquis Discussed Condition With: patient, nursing staff Discharge Planning: Difficult placement. CM assists with ongoing discharge planning. [facility] currently looking at patient for possible placement.
[2018-02-26] MEDS: Calcium/Vitamin D 250/125 MG Tablet PO SCH (10:30)
[2018-02-26] MEDS: Ascorbic Acid 500 MG Tablet PO SCH (10:30)
[2018-02-26] MEDS: Polyethylene Glycol 3350 17 GM Packet PO SCH ×2 (10:30→22:37)
[2018-02-26] MEDS: Gabapentin 300 MG Capsule PO SCH ×3 (10:30→18:15)
[2018-02-26] MEDS: Calcium Acetate 667 MG Capsule PO SCH ×3 (10:31→18:15)
[2018-02-26] MEDS: Insulin NovoLOG Aspart Correctional Sugar Inj SQ SCH ×4 (10:31→23:00)
[2018-02-26] MEDS: predniSONE 10 MG Tablet PO SCH (10:31)
[2018-02-26] MEDS: Baclofen 10 MG Tablet PO SCH ×4 (10:32→22:59)
[2018-02-26] MEDS: Senna/Docusate Sodium 8.6/50 MG Tablet PO SCH ×2 (10:32→22:59)
[2018-02-26] MEDS: Insulin Detemir Inj 1,000 UNIT/10 ML Vial SQ SCH ×2 (10:32→23:01)
[2018-02-26 19:09] LABS: Amorphous Sediment,Urine Rare /hpf; Bacteria,Urine Moderate /hpf; Bilirubin,Urine Negative (Negative); Clarity,Urine Clear (Clear); Color,Urine Straw (Yellw/Straw); Glucose,Urine (UA) Negative (Negative); Leukocyte Esterase,Urine Large (Negative); Mucus,Urine Few /lpf (Occasional); Nitrite,Urine Negative (Negative); Specific Gravity,Urine 1.002 (1.002-1.035)
[2018-02-26] MEDS: Nortriptyline 10 MG Capsule PO SCH (22:59)
[2018-02-27] MEDS: diazePAM 5 MG Tablet PO PRN (06:21)
--- NOTE | 2018-02-27 08:51 | P.PN ---
Subjective Interval history: Patient doing well, no overnight events per RN. Patient is tolerating p.o. Voiding/stooling well. Physical Exam Vital signs: Vital Signs 02/26/18 12:00 02/26/18 16:00 02/26/18 20:00 Temperature 97.8 F 98.4 F 97.8 F Pulse Rate 92 H 83 88 Respiratory Rate 20 20 16 Blood Pressure 104/57 L 143/76 H 124/71 Pulse Oximetry 100 100 95 02/27/18 00:00 02/27/18 04:00 Temperature 97.8 F 98.6 F Pulse Rate 86 93 H Respiratory Rate 16 16 Blood Pressure 139/85 95/55 L Pulse Oximetry 100 99 Intake & Output 02/26/18 02/27/18 02/27/18 18:59 06:59 18:59 Intake Total 1730 / 1730 1360 / 1360 Output Total 1600 / 1600 1600 / 1600 360 / 360 Balance 130 / 130 -1600 / -1600 1000 / 1000 Weight 113.5 kg Intake: Oral 1730 / 1730 1360 / 1360 Output: Urine 1600 / 1600 1600 / 1600 Urine Amount (Catheter) 360 / 360 Suprapubic 360 / 360 Other: # Incontinent Voids 1 Date of Last Bowel Movement 02/26/18 # Incontinent Bowel Movements 2 Narrative: GENERAL: Well-nourished -[place] female, in NAD, lying comfortably in bed. SKIN: Warm and dry. HEENT: Normocephalic, atraumatic, PERRLA, MOM. NECK: Trachea midline. CARDIOVASCULAR: Regular rate and rhythm. S1-S2, no murmurs rubs or gallops. RESPIRATORY: CTA x2 GASTROINTESTINAL: Abdomen soft, non-tender, nondistended. +BS. GENITOURINARY: Suprapubic catheter in place. Left suprapubic area appears benign. +mild tenderness to palpation. MUSCULOSKELETAL: Extremities without clubbing, cyanosis. +Trace BLE edema. NEUROLOGICAL: AAOx3. Decreased motor function bilateral UE's. Normal speech. PSYCHIATRIC: Appropriate mood and affect; insight and judgment normal. - Urinary Catheter Management Suprapubic Cath placed during this visit: yes, but has since been removed by the nurse Reason for continuing: Chronic Urinary Retention Insertion date: 02/19/18 Insertion time: 18:00 Removal date: 09/16/18 Removal time: 17:30 Results - Labs CBC & Chem 7: 02/17/18 05:33 02/24/18 06:11 Laboratory Results - last 24 hr 02/26/18 02/26/18 02/26/18 12:00 12:55 17:02 POC Glucose 147 H 369 H Urine Color Straw Urine Clarity Clear Urine pH 7.0 Ur Specific [place] 1.002 Urine Protein Negative Urine Glucose (UA) Negative Urine Ketones Negative Urine Occult Blood Negative Urine Nitrate Negative Urine Bilirubin Negative Urine Urobilinogen Less than 2 Ur Leukocyte Esterase Large H Urine WBC 8 H Amorphous Sediment Rare H Urine Bacteria Moderate H Urine Mucus Few H Micro UA Comment Culture indicated Ur Microscopic Review Not Reportable Urine Culture Comments Culture indicated 02/26/18 02/27/18 02/27/18 21:44 06:26 07:30 POC Glucose 268 H 143 H 164 H Urine Color Urine Clarity Urine pH Ur Specific [place] Urine Protein Urine Glucose (UA) Urine Ketones Urine Occult Blood Urine Nitrate Urine Bilirubin Urine Urobilinogen Ur Leukocyte Esterase Urine WBC Amorphous Sediment Urine Bacteria Urine Mucus Micro UA Comment Ur Microscopic Review Urine Culture Comments - Procedures none Assessment and Plan - Assessment (1) Neuromyelitis optica Code(s): G36.0 - Neuromyelitis optica [Devic] Status: Acute (2) Pulmonary embolism Code(s): I26.99 - Other pulmonary embolism without acute cor pulmonale Status : Acute (3) DM type 2 (diabetes mellitus, type 2) Code(s): E11.9 - Type 2 diabetes mellitus without complications Status: Chronic - Plan 47 y/o AAF with PMHX of Diabetes, 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 Neuromyelitis Optica/Transverse Myelitis/Paraplegia - Returned from [facility] following a one-month stay there. - Continue prednisone 30mg daily, CellCept indefinitely per review of [facility] medical records. Once CellCept level therapeutic, may taper steroid. 02/07 GINNA Estrella. Repeat Cellcept level 02/07 low at 21. CellCept dose increased to 750mg BID. Repeat CellCept level 02/24 low at 26, still on same dose of CellCept. Neurology reconsulted today to assist with increasing CellCept dose. - Bactrim Wednesday/Wednesday/Wednesday prophylactically. - Continue PT/OT - Hematology and Neurology following - s/p IV Rituxin infusion 01/06 and 01/20 - no further treatment x 6 mos. F/U with Dr. Estrella. 2. Diabetes Mellitus, Type 2 Insulin-Dependent HgbA1c 8.4 02/08/18 BS improved, 164, 286, 114 - Increase Levemir to 42U, continue Levemir 27U QHS - Continue Novolog 10U premeal - Continue Glyburide 5mg BID and John for Neuropathy - Continue accucheks and ISS 3. Hypertension, chronic Stable, continue Metoprolol 4. Anemia of Chronic Disease - Hemoglobin 11.1 on 02/17 - H&H are stable and no further hematuria - Continue to monitor CBC as indicated 5. Pulmonary embolus - restarted Eliquis on 12/16 no plans for permacath 6. Neurogenic Bladder/Retention - Suprapubic catheter in place. Appreciate urology recommendations. - Suprapubic catheter exchange and upsizing 11/14 - SC changed 02/19, change Q4 weeks. 7. Left suprapubic pain Enterococcus UTI 02/16, s/p Amoxicillin - Urine Cx pending on 02/27 - US left suprapubic area negative - topical lidocaine PRN 8. HLD: cont. statin 9. GERD: cont. PPI 10. Hypokalemia, chronic K 3.8 on 02/24 Checking CMP in a.m. Continue KCL 30meq QD 11. Depression Continue Nortriptyline 12. DVT PPX: Eliquis 13. Disposition: pending placement, follow-up blood sugars in a.m., detemir increased to 42 units in AM, Repeat CellCept level 02/24 low at 26, still on same dose of CellCept. Neurology reconsulted today to assist with increasing CellCept dose. Discussed Condition With: patient, RN
[2018-02-27] MEDS: Insulin NovoLOG Aspart Correctional Sugar Inj SQ SCH ×4 (10:53→22:25)
[2018-02-27] MEDS: Insulin Detemir Inj 1,000 UNIT/10 ML Vial SQ SCH ×3 (10:53→22:27)
[2018-02-27] MEDS: Baclofen 10 MG Tablet PO SCH ×4 (10:56→22:24)
[2018-02-27] MEDS: Ascorbic Acid 500 MG Tablet PO SCH (10:57)
[2018-02-27] MEDS: Calcium Acetate 667 MG Capsule PO SCH ×3 (10:57→18:28)
[2018-02-27] MEDS: Senna/Docusate Sodium 8.6/50 MG Tablet PO SCH ×2 (10:58→22:25)
[2018-02-27] MEDS: Gabapentin 300 MG Capsule PO SCH ×3 (10:59→18:28)
[2018-02-27] MEDS: Calcium/Vitamin D 250/125 MG Tablet PO SCH (11:00)
[2018-02-27] MEDS: predniSONE 10 MG Tablet PO SCH (11:02)
[2018-02-27] MEDS: Polyethylene Glycol 3350 17 GM Packet PO SCH ×2 (11:02→22:23)
[2018-02-27] MEDS: Nystatin 100,000 UNITS/GM Powder 15 GM Bottle TOPICAL SCH ×2 (11:04→22:27)
[2018-02-27] MEDS: Carboxymethylcellulose 0.5% Opth Drops 15 ML Bottle EACH EYE PRN (11:05)
[2018-02-27] MEDS: Nortriptyline 10 MG Capsule PO SCH (22:25)
[2018-02-28] MEDS: diazePAM 5 MG Tablet PO PRN (06:15)
[2018-02-28] MEDS ORDERED: Insulin Detemir Inj 1,000 UNIT/10 ML Vial SQ SCH (08:04)
[2018-02-28 08:28] LABS: Baso % (Auto) 0.2 % (0.0-2.0); Eos % (Auto) 0.6 % (0.0-4.0); Hematocrit 36.4 % (35.0-46.0); Hemoglobin 11.7 gm/dL (11.6-15.3); Lymph # (Auto) 2.3 th/mm3 (1.0-4.8); Lymph % (Auto) 29.1 % (9.0-44.0); Mean Corpuscular HGB Conc 32.3 % (32.0-36.0); Mean Corpuscular Hemoglobin 26.4 pg (27.0-34.0); Mean Corpuscular Volume 81.9 fL (80.0-100.0); Mean Platelet Volume 8.9 fL (7.0-11.0); Mono # (Auto) 0.7 th/mm3 (0.0-0.9); Mono % (Auto) 8.3 % (0.0-8.0); Neut # (Auto) 4.9 th/mm3 (1.8-7.7); Neut % (Auto) 61.8 % (16.0-70.0); Platelet Count 182 th/mm3 (150-450); Red Blood Count 4.44 mil/mm3 (4.00-5.30); Red Cell Distribution Width 16.2 % (11.6-17.2); White Blood Count 7.9 th/mm3 (4.0-11.0)
[2018-02-28 08:48] LABS: Albumin 3.1 g/dL (3.4-5.0); Anion Gap 10 meq/L (5-15); Aspartate Aminotransferase 25 U/L (15-37); Blood Urea Nitrogen 10 mg/dL (7-18); Carbon Dioxide 28.8 meq/L (21.0-32.0); Chloride 101 meq/L (98-107); Glomerular Filtration Rate Greater Than 89 mL/min (>89); Glucose,Random 185 mg/dL (74-106); Potassium 3.9 meq/L (3.5-5.1); Sodium 140 meq/L (136-145)
[2018-02-28 08:50] LABS: Alanine Aminotransferase 74 U/L (10-53)
[2018-02-28 08:52] LABS: Alkaline Phosphatase 85 U/L (45-117); Total Protein 6.9 g/dL (6.4-8.2)
[2018-02-28] MEDS: Baclofen 10 MG Tablet PO SCH ×4 (08:57→22:33)
[2018-02-28] MEDS: Calcium Acetate 667 MG Capsule PO SCH ×3 (08:57→17:22)
[2018-02-28] MEDS: Sulfamethoxazole/Trimethoprim 400/80 MG Tablet PO SCH (08:57)
[2018-02-28] MEDS: Calcium/Vitamin D 250/125 MG Tablet PO SCH (08:58)
[2018-02-28] MEDS: Gabapentin 300 MG Capsule PO SCH ×3 (08:58→17:27)
[2018-02-28] MEDS: Ascorbic Acid 500 MG Tablet PO SCH (08:59)
[2018-02-28] MEDS: Senna/Docusate Sodium 8.6/50 MG Tablet PO SCH ×2 (09:00→22:33)
[2018-02-28] MEDS: predniSONE 10 MG Tablet PO SCH (09:01)
[2018-02-28] MEDS: Polyethylene Glycol 3350 17 GM Packet PO SCH ×2 (09:01→22:35)
[2018-02-28] MEDS: Insulin NovoLOG Aspart Correctional Sugar Inj SQ SCH ×4 (09:02→22:35)
[2018-02-28] MEDS: Insulin Detemir Inj 1,000 UNIT/10 ML Vial SQ SCH ×3 (09:20→22:34)
[2018-02-28] MEDS: Nystatin 100,000 UNITS/GM Powder 15 GM Bottle TOPICAL SCH ×2 (09:35→22:35)
--- NOTE | 2018-02-28 10:05 | P.PNNEU ---
Subjective Subjective Comments: Pt doing well. Denies any new problems. No headache. Strength in hands remains improved. Continues to note paresthesias. No side effects on medications Active Medications: Active Medications Acetaminophen (Tylenol) 650 mg PO Q4H PRN PRN Reason: TEMP>100.4 Last Admin: 01/14/18 05:31 Dose: 650 mg Al Hydroxide/Mg Hydroxide (Milk Of Magnapurva Liq) 30 ml PO Q12H PRN PRN Reason: Mild Constipation Last Admin: 02/16/18 09:09 Dose: 30 ml Apixaban (Eliquis) 5 mg PO BID [facility] Last Admin: 02/28/18 08:58 Dose: 5 mg Artificial Tears (Refresh Tears 0.5% Opth Drops) 2 drop EACH EYE Q4H PRN PRN Reason: DRY EYES Last Admin: 02/27/18 11:05 Dose: 2 drop Ascorbic Acid (Vitamin C) 250 mg PO DAILY [facility] Last Admin: 02/28/18 08:59 Dose: 250 mg Baclofen (Lioresal) 30 mg PO QID [facility] Last Admin: 02/28/18 08:57 Dose: 30 mg Benzonatate (Tessalon Perles) 200 mg PO Q8H PRN PRN Reason: COUGH Bisacodyl (Dulcolax Supp) 10 mg RECTAL DAILY PRN PRN Reason: SEVERE CONSITIPATION Last Admin: 01/08/18 03:01 Dose: 10 mg Calcium Acetate (Phoslo) 667 mg PO TIDAC [facility] Last Admin: 02/28/18 08:57 Dose: 667 mg Calcium/Vitamin D (Oscal With D 250/125 Mg) 2 tab PO DAILY [facility] Last Admin: 02/28/18 08:58 Dose: 2 tab Clonidine HCl (Catapres) 0.1 mg PO Q6H PRN PRN Reason: SBP>160, DBP>90 Dextrose (D50w Vial) 50 ml IV.PUSH UNSCH PRN PRN Reason: PER HYPOGLYCEMIA PROTOCOL Diazepam (Valium) 5 mg PO Q8H PRN PRN Reason: MUSCLE SPASM Last Admin: 02/28/18 06:15 Dose: 5 mg Diphenhydramine HCl (Benadryl) 50 mg PO HS PRN PRN Reason: insomnia Last Admin: 02/27/18 22:24 Dose: 50 mg Diphenhydramine HCl (Benadryl Liq) 25 mg PO Q6H PRN PRN Reason: ITCHING Last Admin: 02/16/18 21:40 Dose: 25 mg Docusate Sodium (Colace) 100 mg PO DAILY PRN PRN Reason: CONSTIPATION Last Admin: 11/28/17 14:17 Dose: 100 mg Gabapentin (Neurontin) 300 mg PO TID [facility] Last Admin: 02/28/18 08:58 Dose: 300 mg Glucagon (Glucagon Inj) 1 mg OTHER PRN PRN PRN Reason: for Hypoglycemia Protocol Glyburide (Diabeta) 5 mg PO BID@0800,1700 [facility] Last Admin: 02/28/18 09:35 Dose: 5 mg Insulin Aspart (Novolog Inj) 10 units SQ TIDAC [facility] Last Admin: 02/28/18 09:07 Dose: 10 units Insulin Aspart (Novolog Insulin Correctional Sugar Inj) 0 unit SQ ACHS [facility]; Protocol Last Admin: 02/28/18 09:02 Dose: 2 unit Insulin Detemir (Levemir Inj) 27 unit SQ [facility] Last Admin: 02/27/18 22:27 Dose: 27 unit Insulin Detemir (Levemir Inj) 44 unit SQ DAILY [facility] Lactulose (Lactulose Liq) 30 ml PO DAILY PRN PRN Reason: SEVERE CONSITIPATION Last Admin: 02/15/18 09:42 Dose: 30 ml Lidocaine HCl (Xylocaine 5% Oint) 1 applicatio TOPICAL Q8H PRN PRN Reason: DISCOMFORT Metoprolol Succinate (Toprol Xl) 25 mg PO DAILY [facility] Last Admin: 02/28/18 08:57 Dose: 25 mg Mycophenolate Mofetil (Cellcept) 750 mg PO BID@0600,1800 [facility] Last Admin: 02/28/18 06:14 Dose: 750 mg Naloxone HCl (Narcan Inj) 0.4 mg IV.PUSH UNSCH PRN PRN Reason: SEE LABEL COMMENTS Nortriptyline HCl (Pamelor) 10 mg PO [facility] Last Admin: 02/27/18 22:25 Dose: 10 mg Nystatin (Mycostatin Powder) 1 applicatio TOPICAL BID [facility] Last Admin: 02/28/18 09:35 Dose: 1 applicatio Oxycodone HCl (Roxicodone) 5 mg PO Q4H PRN PRN Reason: PAIN 6-10 Last Admin: 02/28/18 06:15 Dose: 5 mg Pantoprazole Sodium (Protonix) 40 mg PO DAILY [facility] Last Admin: 02/28/18 09:01 Dose: 40 mg Polyethylene Glycol (Miralax) 17 gm PO BID [facility] Last Admin: 02/28/18 09:01 Dose: 17 gm Potassium Chloride (Klor-Con 10) 30 meq PO DAILY [facility] Last Admin: 02/28/18 09:01 Dose: 30 meq Pravastatin Sodium (Pravachol) 40 mg PO HS [facility] Last Admin: 02/27/18 22:25 Dose: 40 mg Prednisone (Deltasone) 30 mg PO DAILY [facility] Last Admin: 02/28/18 09:01 Dose: 30 mg Senna/Docusate Sodium (Jesusita-Colace) 1 tab PO BID [facility] Last Admin: 02/28/18 09:00 Dose: 1 tab Sodium Biphosphate/Sodium Phosphate (Fleets Enema (Adult)) 118 ml RECTAL UNSCH PRN PRN Reason: severe constipation Sodium Chloride (Ns Flush) 2 ml IV.FLUSH UNSCH PRN PRN Reason: FLUSH AFTER USING IV ACCESS Last Admin: 02/25/18 21:56 Dose: 2 ml Sodium Chloride (Ns Flush) 2 ml IV.FLUSH BID [facility] Last Admin: 02/28/18 09:35 Dose: 2 ml Trimethoprim/Sulfamethoxazole (Bactrim) 1 tab PO MoWeFr@0900 [facility] Last Admin: 02/28/18 08:57 Dose: 1 tab Vitamin D (Vitamin D3) 1,000 unit PO DAILY [facility] Last Admin: 02/28/18 09:00 Dose: 1,000 unit Allergies/Adverse Reactions: Allergies Allergy/AdvReac Type Severity Reaction Status Date / Time No Known Allergies Allergy Verified 11/20/17 10:18 Review of Systems All other systems reviewed negative except as stated in HPI Neurologic: Reports tingling/numbness/burning sensations, Reports weakness Physical Exam Vital signs: Vital Signs 02/27/18 12:00 02/27/18 16:00 02/27/18 20:00 Temperature 98.1 F 97.1 F L 97.9 F Pulse Rate 90 82 100 H Respiratory Rate 20 20 Blood Pressure 126/60 121/73 Pulse Oximetry 100 100 86 L 02/28/18 00:00 02/28/18 04:00 02/28/18 08:00 Temperature 98.0 F 97.4 F L 97.4 F L Pulse Rate 78 76 78 Respiratory Rate 20 20 18 Blood Pressure 134/90 148/67 H 149/92 H Pulse Oximetry 100 96 100 Intake & Output 02/27/18 02/28/18 02/28/18 18:59 06:59 18:59 Intake Total 4240 / 4240 4200 / 4200 Output Total 960 / 960 6100 / 6100 Balance 3280 / 3280 -1900 / -1900 Weight 113.7 kg Intake: Oral 4240 / 4240 4200 / 4200 Output: Urine 600 / 600 6100 / 6100 Urine Amount (Catheter) 360 / 360 Suprapubic 360 / 360 Other: Date of Last Bowel Movement 02/26/18 02/26/18 # Incontinent Bowel Movements 2 - Routine Neurological Exam Present: alert, oriented X3 0/5 lowers, 4/5 uppers, 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, moving arms against gravity, improved fine finger movements, no facial asymmetry, speech normal lowers in boots and scds, unable to assess gait - Urinary Catheter Management Suprapubic Cath placed during this visit: yes, but has since been removed by the nurse Reason for continuing: Chronic Urinary Retention Insertion date: 02/19/18 Insertion time: 18:00 Removal date: 02/06/18 Removal time: 17:30 Objective Laboratory Results - last 24 hr 02/26/18 02/27/18 02/27/18 12:55 11:57 17:12 WBC RBC Hgb Hct MCV MCH MCHC RDW Plt Count MPV Neut % (Auto) Lymph % (Auto) [place] % (Auto) Eos % (Auto) Baso % (Auto) Neut # (Auto) Lymph # (Auto) [place] # (Auto) Eos # (Auto) Baso # (Auto) WBC Differential Differential Comment Sodium Potassium Chloride Carbon Dioxide Anion Gap BUN Creatinine Estimated GFR POC Glucose 208 H 210 H Random Glucose Calcium Total Bilirubin AST ALT Alkaline Phosphatase Total Protein Albumin Urine Color Straw Urine Clarity Clear Urine pH 7.0 Ur Specific [place] 1.002 Urine Protein Negative Urine Glucose (UA) Negative Urine Ketones Negative Urine Occult Blood Negative Urine Nitrate Negative Urine Bilirubin Negative Urine Urobilinogen Less than 2 Ur Leukocyte Esterase Large H Urine WBC 8 H Amorphous Sediment Rare H Urine Bacteria Moderate H Urine Mucus Few H Micro UA Comment Culture indicated Urine Culture Comments Culture indicated 02/27/18 02/28/18 02/28/18 21:54 03:09 07:28 WBC RBC Hgb Hct MCV MCH MCHC RDW Plt Count MPV Neut % (Auto) Lymph % (Auto) [place] % (Auto) Eos % (Auto) Baso % (Auto) Neut # (Auto) Lymph # (Auto) [place] # (Auto) Eos # (Auto) Baso # (Auto) WBC Differential Differential Comment Sodium Potassium Chloride Carbon Dioxide Anion Gap BUN Creatinine Estimated GFR POC Glucose 285 H 178 H 185 H Random Glucose Calcium Total Bilirubin AST ALT Alkaline Phosphatase Total Protein Albumin Urine Color Urine Clarity Urine pH Ur Specific [place] Urine Protein Urine Glucose (UA) Urine Ketones Urine Occult Blood Urine Nitrate Urine Bilirubin Urine Urobilinogen Ur Leukocyte Esterase Urine WBC Amorphous Sediment Urine Bacteria Urine Mucus Micro UA Comment Urine Culture Comments 02/28/18 02/28/18 07:31 07:31 WBC 7.9 RBC 4.44 Hgb 11.7 Hct 36.4 MCV 81.9 MCH 26.4 L MCHC 32.3 RDW 16.2 Plt Count 182 MPV 8.9 Neut % (Auto) 61.8 Lymph % (Auto) 29.1 [place] % (Auto) 8.3 H Eos % (Auto) 0.6 Baso % (Auto) 0.2 Neut # (Auto) 4.9 Lymph # (Auto) 2.3 [place] # (Auto) 0.7 Eos # (Auto) 0.0 Baso # (Auto) 0.0 WBC Differential . Differential Comment Auto diff final Sodium 140 Potassium 3.9 Chloride 101 Carbon Dioxide 28.8 Anion Gap 10 BUN 10 Creatinine 0.60 Estimated GFR Greater than 89 POC Glucose Random Glucose 185 H Calcium 9.0 Total Bilirubin 0.4 AST 25 ALT 74 H Alkaline Phosphatase 85 Total Protein 6.9 Albumin 3.1 L Urine Color Urine Clarity Urine pH Ur Specific [place] Urine Protein Urine Glucose (UA) Urine Ketones Urine Occult Blood Urine Nitrate Urine Bilirubin Urine Urobilinogen Ur Leukocyte Esterase Urine WBC Amorphous Sediment Urine Bacteria Urine Mucus Micro UA Comment Urine Culture Comments Microbiology 02/26/18 12:55 Urine Culture - Preliminary Suprapubic Urine Group D Enterococcus Review/Management - 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 Addendum pt d/w pa Reeval for mycopholic level -would cont with current dose of cellcept 750 mg bid cont PT-OT. placement
--- NOTE | 2018-02-28 12:17 | P.PN ---
Subjective Interval history: Follow-up visit neuromyelitis optica, answers myelitis, paraplegia, DM 2, HTN, PE. Patient seen and examined today. Reports she is doing really well. Denies pain and discomfort. Denies SOB/ dyspnea. Denies chest pain, palpitations, headaches, dizziness. Denies fevers, chills, n/v/d. Physical Exam Vital signs: Vital Signs 02/27/18 16:00 02/27/18 20:00 02/28/18 00:00 Temperature 97.1 F L 97.9 F 98.0 F Pulse Rate 82 100 H 78 Respiratory Rate 20 20 Blood Pressure 121/73 134/90 Pulse Oximetry 100 86 L 100 02/28/18 04:00 02/28/18 08:00 Temperature 97.4 F L 97.4 F L Pulse Rate 76 78 Respiratory Rate 20 18 Blood Pressure 148/67 H 149/92 H Pulse Oximetry 96 100 Intake & Output 02/27/18 02/28/18 02/28/18 18:59 06:59 18:59 Intake Total 4240 / 4240 4200 / 4200 Output Total 960 / 960 6100 / 6100 Balance 3280 / 3280 -1900 / -1900 Weight 113.7 kg Intake: Oral 4240 / 4240 4200 / 4200 Output: Urine 600 / 600 6100 / 6100 Urine Amount (Catheter) 360 / 360 Suprapubic 360 / 360 Other: Date of Last Bowel Movement 02/26/18 02/26/18 02/26/18 # Incontinent Bowel Movements 2 Narrative: GENERAL: Well-nourished -[place] female, in NAD, lying comfortably in bed. SKIN: Warm and dry. HEENT: Normocephalic, atraumatic, PERRLA, MOM. NECK: Trachea midline. CARDIOVASCULAR: Regular rate and rhythm. S1-S2, no murmurs rubs or gallops. RESPIRATORY: CTA x2 GASTROINTESTINAL: Abdomen soft, non-tender, nondistended. +BS. GENITOURINARY: Suprapubic catheter in place. Left suprapubic area appears benign. +mild tenderness to palpation. MUSCULOSKELETAL: Extremities without clubbing, cyanosis. +Trace BLE edema. NEUROLOGICAL: AAOx3. Decreased motor function bilateral UE's. Normal speech. PSYCHIATRIC: Appropriate mood and affect; insight and judgment normal. - Urinary Catheter Management Suprapubic Cath placed during this visit: yes, but has since been removed by the nurse Reason for continuing: Chronic Urinary Retention Insertion date: 02/19/18 Insertion time: 18:00 Removal date: 02/06/18 Removal time: 17:30 Results - Labs CBC & Chem 7: 02/28/18 07:31 02/28/18 07:31 Laboratory Results - last 24 hr 02/26/18 02/27/18 02/27/18 12:55 17:12 21:54 WBC RBC Hgb Hct MCV MCH MCHC RDW Plt Count MPV Neut % (Auto) Lymph % (Auto) [place] % (Auto) Eos % (Auto) Baso % (Auto) Neut # (Auto) Lymph # (Auto) [place] # (Auto) Eos # (Auto) Baso # (Auto) WBC Differential Differential Comment Sodium Potassium Chloride Carbon Dioxide Anion Gap BUN Creatinine Estimated GFR POC Glucose 210 H 285 H Random Glucose Calcium Total Bilirubin AST ALT Alkaline Phosphatase Total Protein Albumin Urine Color Straw Urine Clarity Clear Urine pH 7.0 Ur Specific [place] 1.002 Urine Protein Negative Urine Glucose (UA) Negative Urine Ketones Negative Urine Occult Blood Negative Urine Nitrate Negative Urine Bilirubin Negative Urine Urobilinogen Less than 2 Ur Leukocyte Esterase Large H Urine WBC 8 H Amorphous Sediment Rare H Urine Bacteria Moderate H Urine Mucus Few H Micro UA Comment Culture indicated Urine Culture Comments Culture indicated 02/28/18 02/28/18 02/28/18 03:09 07:28 07:31 WBC 7.9 RBC 4.44 Hgb 11.7 Hct 36.4 MCV 81.9 MCH 26.4 L MCHC 32.3 RDW 16.2 Plt Count 182 MPV 8.9 Neut % (Auto) 61.8 Lymph % (Auto) 29.1 [place] % (Auto) 8.3 H Eos % (Auto) 0.6 Baso % (Auto) 0.2 Neut # (Auto) 4.9 Lymph # (Auto) 2.3 [place] # (Auto) 0.7 Eos # (Auto) 0.0 Baso # (Auto) 0.0 WBC Differential . Differential Comment Auto diff final Sodium Potassium Chloride Carbon Dioxide Anion Gap BUN Creatinine Estimated GFR POC Glucose 178 H 185 H Random Glucose Calcium Total Bilirubin AST ALT Alkaline Phosphatase Total Protein Albumin Urine Color Urine Clarity Urine pH Ur Specific [place] Urine Protein Urine Glucose (UA) Urine Ketones Urine Occult Blood Urine Nitrate Urine Bilirubin Urine Urobilinogen Ur Leukocyte Esterase Urine WBC Amorphous Sediment Urine Bacteria Urine Mucus Micro UA Comment Urine Culture Comments 02/28/18 02/28/18 07:31 11:23 WBC RBC Hgb Hct MCV MCH MCHC RDW Plt Count MPV Neut % (Auto) Lymph % (Auto) [place] % (Auto) Eos % (Auto) Baso % (Auto) Neut # (Auto) Lymph # (Auto) [place] # (Auto) Eos # (Auto) Baso # (Auto) WBC Differential Differential Comment Sodium 140 Potassium 3.9 Chloride 101 Carbon Dioxide 28.8 Anion Gap 10 BUN 10 Creatinine 0.60 Estimated GFR Greater than 89 POC Glucose 127 H Random Glucose 185 H Calcium 9.0 Total Bilirubin 0.4 AST 25 ALT 74 H Alkaline Phosphatase 85 Total Protein 6.9 Albumin 3.1 L Urine Color Urine Clarity Urine pH Ur Specific [place] Urine Protein Urine Glucose (UA) Urine Ketones Urine Occult Blood Urine Nitrate Urine Bilirubin Urine Urobilinogen Ur Leukocyte Esterase Urine WBC Amorphous Sediment Urine Bacteria Urine Mucus Micro UA Comment Urine Culture Comments Microbiology 02/26/18 12:55 Suprapubic Urine Urine Culture - Preliminary Group D Enterococcus - Procedures none Assessment and Plan - Assessment (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 Neuromyelitis optica, transverse myelitis, paraplegia -Returned from [facility] following a one-month stay there. -Continue prednisone 30mg daily, CellCept CellCept indefinitely per review of [facility] medical records. Once CellCept level therapeutic, may taper steroid. 02/07 GINNA Estrella. Repeat Cellcept level 02/07 low at 21. CellCept dose increased to 750mg BID. Repeat CellCept level 02/24 low at 26, still on same dose of CellCept. Neurology reconsulted today to assist with increasing CellCept dose. -Bactrim Wednesday/Wednesday/Wednesday prophylactically. -Appreciate neurology, hematology recommendations. -s/p IV Rituxin infusion 01/06 and 01/20 - no further treatment x 6 mos. F/U with Dr. Estrella. -Continue physical therapy, Occupational Therapy. -Currently awaiting placement Diabetes mellitus, insulin-dependent HgA1C 7.9 (10/05/17), HgbA1c 8.4 02/08/18 -Blood glucose uncontrolled, possibly related to steroid use -Levemir to 42U, continue Levemir 27U QHS -Prandial NovoLog 10U -Continue Glyburide 5mg BID and John for Neuropathy -Monitor Accu-Cheks and cover with sliding scale insulin. Hypertension, chronic essential -Continue metoprolol. Anemia of chronic disease - H&H are stable and no further hematuria -Her H&H intermittently Pulmonary embolus -Eliquis to continue Neurogenic bladder Urinary retention -Suprapubic catheter in place. -Suprapubic catheter exchange and upsizing 11/14 -SC changed 02/19, done by Dr. Navarro change Q4 weeks. Referred to urology for suprapubic change. Constipation -Bowel regimen. start Senokot daily. DVT prophylaxis Eliquis Code Status: Full Code Discussed Condition With: Patient, nurse Discharge Planning: [facility].
[2018-02-28 21:38] VITALS: O2SAT 99
[2018-02-28] MEDS: Ciprofloxacin 500 MG Tablet PO SCH (22:34)
[2018-02-28] MEDS: Nortriptyline 10 MG Capsule PO SCH (22:38)
[2018-03-01] MEDS: diazePAM 5 MG Tablet PO PRN (05:55)
[2018-03-01 08:52] VITALS: BP 139/84; PULSE 85; RESP 17; TEMP 98.3
[2018-03-01] MEDS: Ciprofloxacin 500 MG Tablet PO SCH (08:59)
[2018-03-01] MEDS: Ascorbic Acid 500 MG Tablet PO SCH (09:00)
[2018-03-01] MEDS: Senna/Docusate Sodium 8.6/50 MG Tablet PO SCH (09:01)
[2018-03-01] MEDS: Calcium/Vitamin D 250/125 MG Tablet PO SCH (09:01)
[2018-03-01] MEDS: Baclofen 10 MG Tablet PO SCH (09:02)
[2018-03-01] MEDS: Polyethylene Glycol 3350 17 GM Packet PO SCH (09:02)
[2018-03-01] MEDS: predniSONE 10 MG Tablet PO SCH (09:02)
[2018-03-01] MEDS: Calcium Acetate 667 MG Capsule PO SCH (09:03)
[2018-03-01] MEDS: Insulin Detemir Inj 1,000 UNIT/10 ML Vial SQ SCH (09:03)
[2018-03-01] MEDS: Gabapentin 300 MG Capsule PO SCH (09:03)
[2018-03-01] MEDS: Insulin NovoLOG Aspart Correctional Sugar Inj SQ SCH (09:03)
[2018-03-01] MEDS: Nystatin 100,000 UNITS/GM Powder 15 GM Bottle TOPICAL SCH (09:04)
--- NOTE | 2018-03-01 10:40 | P.DS ---
Date of admission: 11/09/17 20:58 Primary care physician: Suzette Mccarthy Attending physician on discharge: Homar Baxter Anticipated date of discharge: 03/01/18 Brief History from admission: Admitted secondary to neuromyelitis optica, transverse myelitis, paraplegia. See H&P. Patient update on day of discharge: Follow-up visit neuromyelitis optica, answers myelitis, paraplegia, DM 2, HTN, PE. Patient seen and examined today. Reports she is doing well. Denies pain and discomfort. Denies SOB/ dyspnea. Denies chest pain, palpitations, headaches, dizziness. Denies fevers, chills, n/v/d. Complaints of constipation. 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 Patient found to have numerous neuromyelitis optica, transverse myelitis, paraplegia and return from [facility] after a 1 month stay there. She was seen by neurologist in the hospital, Dr. Estrella who continued prednisone for her and will be on CellCept indefinitely. Also levels needs to be monitored. She will need to follow-up with neurologist for this. Patient is also on Bactrim prophylactically Wednesday/Wednesday/Wednesday. Hematology has also been following patient since her hospitalization, Dr. Conrad. She is status post IV Rituxan infusion 01/06 and 01/20 with no further treatments within 6 months. She needs to follow-up with Dr. Estrella and Dr. Conrad. Patient's diabetes mellitus are manage is managed by Levemir, prandial NovoLog, glyburide. She is also on gabapentin for her neuropathy. Patient has chronic anemia. She will continue to monitor her H&H intermittently. She has been diagnosed with pulmonary embolus prior and she will need to continue her Eliquis. Patient found to have neurogenic bladder with suprapubic catheter in place. It has been change 02/[address] Navarro in interventional radiology and will need to be changed every 4 weeks. She is referred to a urologist for suprapubic changes or the facility can do it for the patient. Patient was found to have urinary tract infection Enterococcus faecalis and was sensitive to Cipro. She will complete Cipro. Patient has met maximal benefits of hospitalization. Clinically stable for discharge to residential facility at [facility]. She will follow-up with a specialist as ordered. She will continue all her medications that was recommended for - Time Spent with Patient Total time spent providing and/or coordinating discharge services: Greater than 30 minutes Exam Vital signs: Vital Signs 02/28/18 12:00 02/28/18 16:00 02/28/18 20:00 Temperature 97.4 F L 98.6 F 98.8 F Pulse Rate 81 78 89 Respiratory Rate 17 18 18 Blood Pressure 125/67 119/70 141/79 H Pulse Oximetry 100 100 99 03/01/18 00:00 03/01/18 04:00 03/01/18 07:21 Temperature 98.2 F 98.2 F Pulse Rate 93 H 81 Respiratory Rate 18 18 16 Blood Pressure 125/66 116/63 Pulse Oximetry 99 99 03/01/18 08:00 Temperature 98.3 F Pulse Rate 85 Respiratory Rate 17 Blood Pressure 139/84 Pulse Oximetry 99 Intake & Output 02/28/18 03/01/18 03/01/18 18:59 06:59 18:59 Intake Total 960 / 960 Output Total 1999 2400 / 2400 Balance -1040 / -1040 -2400 / -2400 Weight 113.9 kg Intake: Oral 960 / 960 Output: Urine 1999 2400 / 2400 Other: Bladder Irrigation Fluid - Amount Drained Suprapubic 1,650 Date of Last Bowel Movement 02/26/18 02/26/18 02/26/18 Narrative: GENERAL: Well-nourished -[place] female, in NAD, lying comfortably in bed. SKIN: Warm and dry. HEENT: Normocephalic, atraumatic, PERRLA, MOM. NECK: Trachea midline. CARDIOVASCULAR: Regular rate and rhythm. S1-S2, no murmurs rubs or gallops. RESPIRATORY: CTA x2 GASTROINTESTINAL: Abdomen soft, non-tender, nondistended. +BS. GENITOURINARY: Suprapubic catheter in place. Left suprapubic area appears benign. +mild tenderness to palpation. MUSCULOSKELETAL: Extremities without clubbing, cyanosis. +Trace BLE edema. NEUROLOGICAL: AAOx3. Decreased motor function bilateral UE's. Normal speech. PSYCHIATRIC: Appropriate mood and affect; insight and judgment normal. Results Procedures completed during hospitalization: none Labs on day of discharge: Labs from last 24 hours 03/01/18 03/01/18 02/28/18 07:09 02:20 22:08 POC Glucose 255 H 135 H 176 H 02/28/18 02/28/18 16:17 11:23 POC Glucose 301 H 127 H - Impressions ITS Impressions Chest X-Ray 11/29/17 00:00 CONCLUSION: Negative for an acute process Cervical Spine MRI 12/15/17 00:00 CONCLUSION: Thoracic Spine MRI 12/15/17 00:00 CONCLUSION: Hip X-Ray 01/13/18 00:00 CONCLUSION: No acute left hip joint abnormality is identified. Tube Change 01/17/18 00:00 CONCLUSION: 1. Uncomplicated suprapubic catheter exchange. Lower Extremity Ultrasound 02/16/18 00:00 CONCLUSION: 1. Unremarkable focused ultrasound examination of the left groin. Soft Tissue Ultrasound 02/25/18 00:00 CONCLUSION: 1. Negative Discharge Plan - Discharge Disposition Patient Disposition: Discharge to SNF - Discharge Condition Condition: Stable - Discharge Order Discharge Orders: Discharge Order (Routine); Ordered 03/01/18 Ordered By: Joe Milan Hospitalist Clear for Discharge (Routine); Ordered 03/01/18 Ordered By: Homar Baxter - Physicians Team Primary Care Provider: Suzette Mccarthy Attending Provider: Homar Baxter Other Providers: mAos Velasco DO ; [facility] ; Karrie Estrella MD ; Magdaleno Puentes MD ; Chino Houston MD ; [facility] ; Angie De Los Santos MD - Rxs /Orders / Referrals /Forms Prescriptions: New cetirizine 10 mg Tablet 10 mg PO HS RF: 0 clonidine HCl [Catapres] 0.1 mg Tablet 0.1 mg PO Q6H PRN (Reason: Sbp>160, Dbp>90) RF: 0 insulin aspart U-100 [Novolog U-100 Insulin aspart] 100 unit/mL Solution 0 unit Sub-Q ACHS RF: 0 insulin aspart U-100 [Novolog U-100 Insulin aspart] 100 unit/mL Solution 10 units subcut TIDAC RF: 0 insulin detemir U-100 [Levemir U-100 Insulin] 100 unit/mL Solution 24 unit Sub-Q AC BREAKFAST RF: 0 insulin detemir U-100 [Levemir U-100 Insulin] 100 unit/mL Solution 44 unit subcut DAILY RF: 0 insulin detemir U-100 [Levemir U-100 Insulin] 100 unit/mL Solution 27 unit subcut HS RF: 0 lactulose 20 gram/30 mL Solution 30 ml PO DAILY PRN (Reason: Severe Consitipation) RF: 0 magnesium hydroxide [Milk of Magnesia] 400 mg/5 mL Suspension 30 ml PO Q12H PRN (Reason: Mild Constipation) RF: 0 mycophenolate mofetil [CellCept] 500 mg Tablet 750 mg PO BID@0600,1800 RF: 0 oxycodone 5 mg Tablet 5 mg PO Q4H PRN (Reason: PAIN 6-10) Qty: 20 RF: 0 Continue acetaminophen [Tylenol] 325 mg Tablet 650 mg PO Q4H PRN (Reason: MILD PAIN) apixaban [Eliquis] 5 mg Tablet 10 mg PO BID ascorbic acid (vitamin C) 250 mg Tablet 250 mg PO DAILY baclofen 10 mg Tablet 30 mg PO QID calcium acetate 667 mg Capsule 667 mg PO TID calcium carbonate-vitamin D3 [Os-Karson 500 + D3] 500 mg(1,250mg) -200 unit Tablet 1 tab PO DAILY cholecalciferol (vitamin D3) 1,000 unit Tablet 400 units PO DAILY diazepam 5 mg Tablet 5 mg PO Q8H PRN (Reason: Muscle Spasm) diphenhydramine HCl 12.5 mg/5 mL Elixir 25 mg PO Q6H PRN (Reason: ITCHING ) diphenhydramine-zinc acetate 2-0.1 % Cream 1 applic TOPICAL TID PRN (Reason: ITCHING AND/OR RASH) docusate sodium 100 mg Capsule 100 mg PO DAILY PRN (Reason: Constipation) gabapentin 300 mg Capsule 300 mg PO HS gabapentin 100 mg Capsule 200 mg PO BID glyburide 5 mg Tablet 5 mg PO BID metoprolol succinate 25 mg Tablet Extended Release 24 Hr 25 mg PO DAILY nortriptyline 10 mg Capsule 10 mg PO HS pantoprazole [Protonix] 20 mg Tablet,Delayed Release (Dr/Ec) 20 mg PO DAILY pantoprazole [Protonix] 40 mg Tablet,Delayed Release (Dr/Ec) 40 mg PO DAILY potassium chloride 10 mEq Capsule, Extended Release 30 meq PO DAILY pravastatin 40 mg Tablet 40 mg PO HS prednisone 20 mg Tablet 30 mg PO DAILY propylene glycol-glycerin 1-0.3 % Drops 1 - 2 drop ophthalmic (eye) PRN sennosides 8.6 mg Tablet 8.6 mg PO HS sulfamethoxazole-trimethoprim 400-80 mg Tablet 1 tab PO DIRECTED Discontinued baclofen 20 mg Tablet 20 mg PO QID baclofen 10 mg Tablet 10 mg PO QID cholecalciferol (vitamin D3) 1,000 unit Tablet 1,000 units PO DAILY NEB insulin detemir U-100 [Levemir U-100 Insulin] 100 unit/mL Solution 30 unit SUB-Q Q24H insulin regular human [Novolin R Regular U-100 Insuln] 100 unit/mL Solution 1 unit SUB-Q DIRECTED insulin regular human [Novolin R Regular U-100 Insuln] 100 unit/mL Solution 13 unit SUB-Q TIDAC mycophenolate mofetil [CellCept] 500 mg Tablet 500 mg PO BID oxycodone 10 mg Tablet 5 mg PO Q4H PRN (Reason: PAIN SCALE 6-10) Referrals: Urologist [Outside] - See Instructions (Follow up in 14 Days. Schedule an appointment. Suprapubic catheter change) Karrie Estrella MD [Physician] - See Instructions (Follow up in 7 Days. Schedule an appointment.) Ebony Conrad MD [Physician] - See Instructions (Follow up in 7-14 Days. Schedule an appointment.) Suzette Mccarthy ARNP [Primary Care Provider] - See Instructions ( Please call the physician's office to book the appointment to be seen within [].) - Discharge Instructions Patient Printed Instructions: Sulfamethoxazole/Trimethoprim (By mouth), Metoprolol (By mouth), Clonidine (By mouth), Acetaminophen (By mouth), Oxycodone /Acetaminophen (By mouth), Diazepam (By mouth), Nortriptyline (By mouth), Glyburide (By mouth), Prednisone (By mouth), Potassium Chloride (By mouth), Antacid, Aluminum and Magnesium (By mouth), Diphenhydramine (By mouth), Baclofen (By mouth), Ascorbic Acid (By mouth), Lactulose (By mouth), Gabapentin (By mouth), Cetirizine (By mouth), Calcium Acetate (By mouth), Pantoprazole (By mouth), Insulin Aspart, Recombinant (By injection), Calcium/Vitamin D Supplement (By mouth), Diphenhydramine/Zinc (On the skin), Mycophenolate (By mouth), Insulin Detemir (By injection), Apixaban (By mouth), Cholecalciferol ( By mouth), Senna (By mouth), Hypoglycemia in a Person with Diabetes (ED) - Post Discharge Care Plan Care Plan Goals: Your Health Problems: Goals to Promote Your Health: * To prevent worsening of your condition * To maintain your health at the optimal level Directions to Meet Your Goals: * Take your medications as prescribed * Follow your dietary instruction * Follow activity as directed * Keep your appointments as scheduled * Take your immunizations and boosters as scheduled * If your symptoms worsen call your PCP * If no PCP go to Urgent Care or Emergency Room Smoking is dangerous to your health. Avoid second hand smoke. You may reach the 24-hour crisis hotline for domestic abuse at 4-797-110- 4432.Your Health Problems: Goals to Promote Your Health: * To prevent worsening of your condition * To maintain your health at the optimal level Directions to Meet Your Goals: * Take your medications as prescribed * Follow your dietary instruction * Follow activity as directed * Keep your appointments as scheduled * Take your immunizations and boosters as scheduled * If your symptoms worsen call your PCP * If no PCP go to Urgent Care or Emergency Room Smoking is dangerous to your health. Avoid second hand smoke. You may reach the 24-hour crisis hotline for domestic abuse at .
== END 2018-03-01 11:59 ==
LOC: N05 20:58 → UNDODISIN 01-03 09:22 → HCIN 01-05 23:16 → N05 01-11 17:57
PROVIDERS: ADMIT Internal Medicine; ATTEND Internal Medicine